=== PATIENT | male | born 1965 | race Two or more races ===

== ENCOUNTER 2024-11-03 09:13 | Inpatient (IN) | payer MEDICARE, MEDICAID, SELFPAY ==
[2024-11-03] VITALS (10 sets, daily range): BP systolic 109–163; BP diastolic 65–91; PULSE 101–114; RESP 13–88; TEMP 36.8–37.3; O2SAT 89–99; BMI 28.8
--- NOTE | 2024-11-03 09:25 | EKG_ITS ---
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
--- NOTE | 2024-11-03 09:25 | XR_ITS ---
Examination: PA lateral chest 2 views Technique: Upright PA lateral chest 2 views Exam date and time: September 05, 2024 0932 hrs. Comparison November 08, 2023 Indications: Shortness of breath chest pain today Findings: Mild CHF Moderate enlargement cardiac contour Prominent vascular congestion with early septal edema Right internal jugular dialysis catheter satisfactory position Small bilateral pleural effusions Impression: Mild CHF
--- NOTE | 2024-11-03 09:25 | PD.EDRME ---
Rapid Medical Screening Exam RME Arrival date/time: 11/03/24 09:13 59-year-old male with hypertension, ESRD presents to the emergency department with complaints of chest pain Chief Complaint: Chest Pain Vital signs: Vital Signs Temperature 98.9 F 11/03/24 09:19 Pulse Rate 114 H 11/03/24 09:19 Respiratory Rate 19 11/03/24 09:19 Blood Pressure 109/65 11/03/24 09:19 Pulse Oximetry (%) 99 11/03/24 09:19 Oxygen Delivery Method Room Air 11/03/24 09:19
[2024-11-03 10:26] LABS: Basophils # (Auto) 0.1 Thou/mm3 (0.0-0.2); Basophils % (Auto) 0 % (0-2.5); Eosinophils # (Auto) 0.3 Thou/mm3 (0.0-0.5); Eosinophils % (Auto) 2 % (0-10); Hematocrit 25.2 % (41.0-53.0); Immature Granulocytes % (Auto) 1 % (0-0); Immature Granulocytes Auto 0.22 Thou/mm3 (0.00-0.00); Lymphocytes # (Auto) 1.2 Thou/mm3 (1.0-4.8); Lymphocytes % (Auto) 6 % (10-50); Mean Corpuscular Volume 90 fL (80-100); Monocytes # (Auto) 1.3 Thou/mm3 (0.0-0.8); Monocytes % (Auto) 6 % (0-12); Neutrophils # (Auto) 17.3 Thou/mm3 (1.8-7.7); Neutrophils % (Auto) 85 % (37-80); Nucleated Red Blood Cell % 0 /100 WBC (0); Platelet Count 513 Thou/mm3 (140-440); RDW Standard Deviation 48.8 fL (35.1-43.9); Red Blood Count 2.79 Miln/mm3 (4.50-5.90); White Blood Count 20.4 Thou/mm3 (3.8-10.6)
[2024-11-03 10:31] LABS: Hemoglobin 7.8 g/dL (13.5-16.0)
[2024-11-03 10:43] LABS: B-Type Natriuretic Peptide 674 pg/mL (0-100)
[2024-11-03 10:44] LABS: Alanine Aminotransferase 21 U/L (10-49); Albumin, Serum 4.1 gm/dL (3.5-5.0); Alkaline Phosphatase 70 U/L (46-116); Anion Gap 12 (7-16); Aspartate Amino Transferase 23 U/L (0-34); BUN/Creatinine Ratio 5 Ratio (12-20); Bilirubin,Total 0.5 mg/dL (0.3-1.2); Blood Urea Nitrogen 38 mg/dL (9-23); Calcium 8.5 mg/dL (8.3-10.6); Calcium (Corrected) 8.5 mg/dL (8.5-10.1); Carbon Dioxide 24.8 mMol/L (20.0-31.0); Chloride 97 mMol/L (98-107); Creatinine (Component) 7.9 mg/dL (0.6-1.3); Estimated Creatinine Clearance 9.2 mL/min (>60); Globulin 4.3 gm/dL (2.3-3.5); Glucose 215 mg/dL (74-106); Osmolality,Calculated 283 (275-295); Potassium 4.6 mMol/L (3.4-5.1); Sodium 134 mMol/L (136-145); Total Protein 8.4 gm/dL (5.7-8.2); eGFR 7 See Note
[2024-11-03 10:46] LABS: Troponin I 0.563 ng/mL (0.0-0.045)
--- NOTE | 2024-11-03 14:02 | XR_ITS ---
Examination: CT chest, without intravenous contrast. Sagittal and coronal 2-D reconstructions. Exam date and time: November 03, 2024 1420 hrs. Indications: Chest pain coughing today CTDI:vol (mGy) 15.8 DLP: (mGycm) 478 Technique: Multiple 3.0 mm axial sections of the chest to been obtained. Bone and lung density settings are obtained. Sagittal and coronal 2-D reconstructions have been obtained. Low dose protocols were performed. One or more of the following dose reduction techniques were used; automated exposure control, adjustment of the mA and/or KV according to patient size, use of iterative reconstruction technique. Findings: Mild to moderate enlargement cardiac contour Prominent pericardial effusion measuring up to 27 mm Heavy coronary artery calcification Prominent vascular congestion Small left pleural effusion Atelectasis at the left lung base Pneumonia left lung base Fatty infiltration throughout the liver Impression: Mild to moderate enlargement cardiac contour. Prominent pericardial effusion measuring up to 27 mm Mild heart failure. Significant pneumonia left base. Small left pleural effusion
--- NOTE | 2024-11-03 14:05 | PD.EDADULT ---
ED General RME/HPI General Chief complaint: Chest Pain Stated complaint: PAIN UNDER L) NIPPLE STARTED LAST NIGHT Time Seen by Provider: 11/03/24 13:54 Arrival date/time: 11/03/24 09:13 CC: Cough chest pain, site-specific, HPI ongoing since last night. Patient is a dialysis patient Monday and Fridays last dialyzed Monday last Monday, Dr. Hannah is his director of community center. Patient is awake alert oriented when initially assessed he was 93% on 4 L nasal cannula does not wear oxygen at home. Currently the chest pain is site-specific to the left anterior chest midclavicular line not reproducible with palpation but increases with deep inhalation or cough. RME / HPI RME / HPI narrative: 11/03/24 09:13 59-year-old male with hypertension, ESRD presents to the emergency department with complaints of chest pain Related Data Home Medications ?Medication ?Instructions ?Recorded ?Confirmed atorvastatin 10 mg tablet (Lipitor) 10 mg PO QDAY 08/06/18 12/23/22 amlodipine 10 mg tablet 10 mg PO QDAY 12/23/22 12/23/22 clonidine HCl 0.3 mg tablet 0.3 mg TID 12/23/22 12/23/22 Previous Rx's ?Medication ?Instructions ?Recorded calcium acetate(phosphat bind) 667 1,334 mg (2 x 667 mg) PO TIDWM #90 12/27/22 mg capsule caps hydralazine 50 mg tablet 50 mg PO TID #90 tabs 12/27/22 ferrous sulfate 325 mg (65 mg 325 mg PO .every 72 hours #20 tabs 12/29/22 iron) tablet,delayed release Allergies Allergy/AdvReac Type Severity Reaction Status Date / Time No Known Allergies Allergy Verified 11/03/24 09:17 Review of Systems Review of Systems Narrative Review of Systems: GEN: No fever, no chills, no weight loss EYES: No discharge, no visual changes, no pain HEENT: No ear pain, no congestion, no sore throat PULM: No shortness of breath, no cough, no congestion CV: + chest pain, no dyspnea on exertion, no palpitations GI: No nausea, no vomiting, no diarrhea, no pain, no constipation : No frequency, no urgency, no dysuria MUSC/SKEL: No joint pain, no back pain SKIN: No rash PSYCH: No hallucinations, no depression HEME/LYMPH: No easy bleeding or bruising tendencies NEURO: No weakness, no headache Past Medical History Past Medical History NEUROLOGIC: Negative Neurological Disorders or Seizures CARDIAC: Positive Cardiac Disorders, Hypercholesterolemia, Congestive Heart Failure and Hypertension; Negative Cardiac Arrhythmia, Atrial Fibrillation or Edema RESPIRATORY: Negative Chronic Obstructive Pulmonary Disease (COPD), Asthma, Bronchitis or Sleep Apnea GASTROINTESTINAL: Negative Gastrointestinal Disorders GENITOURINARY: Positive Genitourinary Disorders; Negative Renal Disease, Inguinal Hernia or Dialysis MUSCULOSKELETAL: Negative Musculoskeletal Disorders ENDOCRINE: Positive Endocrine Disorders and Diabetes Mellitus Type 2; Negative Diabetes Mellitus Type 1 HEMATOLOGIC: Negative Blood Disorders, Anemia or Sickle Cell Disease OTHER HISTORY: Negative Autoimmune Disease, Falls, Blood Transfusions, Blood Transfusion Reaction, Anesthesia Reactions, MRSA or Cancer Family History FAMILY HISTORY: Positive Family Cancer; Negative Family Cardiac Disorders Surgical History SURGICAL: Negative Pacemaker or Vasectomy Social History SMOKING STATUS: Never smoker ED Exam Narrative Physical exam: [General: Appears not in any acute distress Head normocephalic HEENT: Eyes: Pupils are PERRLA EOMs are intact. All other subsystems of HEENT are within acceptable limits Neck is supple nontender Chest equal chest rise nontender to palpation right anterior dialysis catheter clean dry and intact with a fresh dressing no surrounding erythema or edema. Respiratory: Clear to auscultation no wheezes crackles or rubs CV: Rate rhythm is regular no murmurs rubs or clicks Abdomen is soft nontender no masses positive bowel sounds all 4 quadrants Back: No CVA tenderness no spinous process tenderness from cervical spine thoracic and lumbar spine Skin: Intact no petechiae rash induration ulceration or crepitus Extremities: Moving all extremity against resistance cap refill less than 2 seconds neurosensory intact Neuro: Awake alert oriented x3 Glascow coma 15 no focal deficits] Course Quality Measures none Orders Category Date Time Status EKG (ED ONLY) *Do not use* NOW Care 11/03/24 09:[address] chest wo con Stat Exams 11/03/24 14:02 Completed EKG (ED Only) Stat Exams 11/03/24 09:25 Draft XR chest 2V Stat Exams 11/03/24 09:25 Completed BNP [B-Type Natriuretic Peptide] Stat Lab 11/03/24 09:54 Completed CBC Stat Lab 11/03/24 09:54 Completed Comprehensive Metabolic Panel Stat Lab 11/03/24 09:54 Completed Troponin I Stat Lab 11/03/24 09:54 Completed cefTRIAXone/D5w 1gm IV premix [Rocephin/D5w 1gm IV Med 11/03/24 14:02 Discontinued premix] 1 gm in 50 ml IV X1 Vital Signs Vital signs: Vital Signs Temperature 98.9 F 11/03/24 09:19 Pulse Rate 114 H 11/03/24 09:19 Respiratory Rate 19 11/03/24 09:19 Blood Pressure 109/65 11/03/24 09:19 Pulse Oximetry (%) 99 11/03/24 09:19 Oxygen Delivery Method Room Air 11/03/24 09:19 Discharge Plan Plan Patient Disposition: Other Care w/in Hosp ([facility]) Patient condition on transfer: Stable Prescriptions/Referrals Prescriptions/Med Rec: No Action atorvastatin [Lipitor] 10 mg Tablet 10 mg PO QDAY amlodipine 10 mg tablet 10 mg PO QDAY clonidine HCl 0.3 mg tablet 0.3 mg TID Patient Comments: TAKE ONE TABLET BY MOUTH THREE TIMES DAILY calcium acetate(phosphat bind) 667 mg Capsule 1,334 mg PO TIDWM Qty: 90 0RF hydralazine 50 mg tablet 50 mg PO TID Qty: 90 0RF ferrous sulfate 325 mg (65 mg iron) tablet,delayed release (DR/EC) 325 mg PO .every 72 hours Qty: 20 0RF Referrals: Brittani Goel PA-C [Primary Care Provider] - In 1 week Problem List Clinical Impression: Pneumonia, Shortness of breath, Chest pain, Hypoxemia Patient/Caregiver Discharge Instructions Print Language: Martiniquais Stand Alone Forms: Cherelle Award Info., Patient Portal Info Letter PA/MUKESH Supervising Physician PA/BUNCHER OPERATOR Supervising Physician: Breezy Lopez ENP MDM Patient Acuity High Acuity (complete MDM) Narrative: Patient on dialysis Monday and Monday. Clinical Information Provided by: patient Medical Records reviewed [facility] Chronic Illness/Social Conditions which may negatively complicate care or outcome(s)-explain: other (ESRD dialysis) EKG EKG Interpretation(s): EKG performed at 0 929 shows a ventricular rate of 113 DE interval 193 QRS of 95 QTc of 354 this is sinus tachycardia nonspecific ST segment changes. Labs Lab(s) Interpretation(s): CBC shows a white count of 20,400 H&H of 7.8 and 25.2 platelet count 518. CMP shows a sodium 134 chloride of 97 BUN of 38 creatinine of 7.9 glucose of 215. No transaminitis or T. bili elevation Troponin at 0.563 note: All prior troponins have been at this level BNP at 674. EKG as interpreted by the radiologist shows vascular congestion. Imaging Imaging Interpretation(s): I am concerned the patient has pneumonia with a 20,000 white count no fever persistent cough and site-specific chest pain that increases with cough or deep inhalation. Will CT the chest to determine. The meantime the patient will be given a gram of Rocephin. CT of the chest confirms the patient has a significant left base pneumonia. Medication Administration(s) Medication Administration History Discontinued Medications Ceftriaxone Sodium/Dextrose (Rocephin/D5w 1gm Iv Premix) 1 gm in 50 mls @ 100 mls/hr IV X1 ONE Stop: 11/03/24 14:31 Last Infusion: 11/03/24 15:33 Dose: Infused Documented By: Admin: 11/03/24 14:54 Dose: 100 mls/hr Documented By: SHAUNA Patient's case discussed with the resident for Dr. Johansen who agrees accept the patient for admission. Diagnosis Differential Diagnosis ED Complaint MDM: Shortness of breath hypoxemia pneumonia ESRD
[2024-11-03] MEDS: cefTRIAXone/D5w 1gm IV premix 1 GM/50 ML BAG IV (14:54)
--- NOTE | 2024-11-03 16:27 | ESHP_ITS ---
<Statement entered by Jareth Burns MD - 11/04/24 14:29> Patient coming in to ED with complaints of shortness of breath and chest pain. Patient found to have pericardial fluid on CT imaging. Will admit patient for cardiac echo and cardiology consults. Patient also noted to have pneumonia we will start patient on IV antibiotics and await cultures. Patient is dialysis patient, will consult nephrology for continued dialysis. Case discussed with team. Jareth Burns MD PGY3 Documentation for date of: 11/03/24 HPI History of Present Illness History of present illness: Mr. Springer is a 59-year-old male with past medical history significant for hypertension, hyperlipidemia, type 2 diabetes and end-stage renal disease on hemodialysis Monday with Dr. Garcia as his primary thread dresser presented to the ED after experiencing cough for 2 days causing left-sided chest pain below the nipple. Patient states the pain is nonradiating and nonreproducible it has been constant 7/10 pain. Patient states he does have shortness of breath but that is not new as he is ESRD patient and often gets shortness of breath and feels like he should be on home oxygen. Patient said the pain is only worse when he is laying on his left side but other than that nothing makes the pain better or worse. Patient states he has noticed he has been experiencing orthopnea and occasional PND. Pt denies any previous cardiac history and does not see a head piece assembler. Patient denies any flulike symptoms or sick contacts he states that he does have a mild cough but denies any fevers or chills. Patient also denies any abdominal pain, nausea, vomiting, diarrhea or constipation. Patient denies any episodes of melena or hematochezia and denies hematemesis. Patient states he regularly goes to his dialysis sessions and occasionally if he is busy on his scheduled dialysis day he makes it up the next day but never misses multiple sessions in a row. Pt denies any diziness or syncopal episodes. Pt lives alone and takes care of himself. ED Course: In the ED initial vitals are blood pressure 109/65, pulse 114 Labs were significant for WBC 20.4, hemoglobin 7.8, hematocrit 25.2, platelet 513, sodium 134, chloride 97, BUN 38, creatinine 7.9, GFR 7, glucose 215, troponin 0.563, BNP 674 Chest XR: Mild CHF, Moderate enlargement cardiac contour, Prominent vascular congestion with early septal edema, Right internal jugular dialysis catheter satisfactory position, Small bilateral pleural effusions CT Chest: Mild to moderate enlargement cardiac contour, Prominent pericardial effusion measuring up to 27 mm, Mild heart failure, Significant pneumonia left base, Small left pleural effusion PMH: Hypertension, hyperlipidemia, type 2 diabetes, ESRD PSH: No history of surgeries SH: Patient denies smoking tobacco, denies illicit drug use and denies alcohol Home Meds: Patient is unable to recall his home meds, pending med rec Review of Systems Review of Systems Systems Reviewed: All systems reviewed, normal except as documented Exam Vital Signs Temp Pulse Resp BP Pulse Ox O2 Del Method O2 Flow Rate 98.2 F 113 H 13 158/91 H 97 Nasal Cannula 3 11/03/24 13:49 11/03/24 15:48 11/03/24 15:48 11/03/24 15:48 11/03/24 15:48 11/03/24 15:48 11/03/24 15:48 Narrative Exam GENERAL: A&Ox3 . pleasant, cooperative middle aged man, although Pt is short of breath is not in acute distress NEURO: no focal neurological deficits noted HEENT: Atraumatic, Normocephalic. mucous membranes moist. Eyes open, symmetrical, & clear HEART: Normal Heart Sounds LUNGS: diminished breath sounds on left and faint breath sounds on right ABDOMEN: soft, non-distended, non-tender, bowel sounds heard, no guarding or rebound tenderness SKIN: No Rash or ecchymoses EXTREMITIES: Trace pitting edema bilaterally in LE, tenderness, able to move all 4 extremities, pedal pulses palpated Results: Labs 11/04/24 04:52 11/04/24 04:52 Labs: Short CBC 11/03/24 Range/Units 09:54 WBC 20.4 H (3.8-10.6) Thou/mm3 Hgb 7.8 L (13.5-16.0) g/dL Hct 25.2 L (41.0-53.0) % Plt Count 513 H (140-440) Thou/mm3 BMP 11/03/24 09:54 Sodium 134 L Potassium 4.6 Chloride 97 L Carbon Dioxide 24.8 BUN 38 H Creatinine 7.9 H* Glucose 215 H Calcium 8.5 Cardiac Enzymes 11/03/24 Range/Units 09:54 Troponin I 0.563 H* (0.0-0.045) ng/mL Liver Function 11/03/24 Range/Units 09:54 Total Bilirubin 0.5 (0.3-1.2) mg/dL AST 23 (0-34) U/L ALT 21 (10-49) U/L Alkaline Phosphatase 70 (46-116) U/L Albumin 4.1 (3.5-5.0) gm/dL Quality Measures Quality Measures none Medications Home Medications and Allergies Home Medications ?Medication ?Instructions ?Recorded ?Confirmed ?Type metoprolol tartrate 25 mg tablet 25 mg PO Q12H 5 11/03/24 History sucroferric oxyhydroxide 500 mg 500 mg PO TID 11/03/24 11/03/24 History chewable tablet (Velphoro) vitamin B comp no.3-folic acid 1 1 tab PO .QD 11/03/24 11/03/24 History mg-vit C 60 mg-biotin 300 mcg tablet (Ileana-Koko Rx) Allergies Allergy/AdvReac Type Severity Reaction Status Date / Time No Known Allergies Allergy Verified 11/03/24 09:17 Visit Medications Acetaminophen (Acetaminophen 325 Mg Tablet) 650 mg PO Q6H PRN PRN Reason: Fever >101.5 Stop: 12/03/24 16:09 Dextrose (Dextrose 50%-Water Inj 50 Ml Syringe) 25 ml IV Q15MIN PRN PRN Reason: BG 50-70 responsive npo pt Stop: 12/03/24 16:23 Dextrose (Dextrose 50%-Water Inj 50 Ml Syringe) 50 ml IV Q15MIN PRN PRN Reason: BG <50 OR BG <70 & pt unresponsive Stop: 12/03/24 16:23 Glucagon (Glucagon Inj 1 Mg Vial) 1 mg IM Q15MIN PRN PRN Reason: BG <70, and no IV access Heparin Sodium (Porcine) (Heparin Sod Inj 5000 Unit/Ml Vial) 5,000 unit SC Q8HR ADRIANA Stop: 11/17/24 21:59 Ceftriaxone Sodium/Dextrose (Rocephin/D5w 1gm Iv Premix) 50 mls @ 100 mls/hr IV QDAY ADRIANA Stop: 11/11/24 16:18 Azithromycin 500 mg/ Sodium (Chloride) 250 mls @ 250 mls/hr IV QDAY ADRIANA Stop: 11/10/24 16:29 Insulin Human Lispro (Insulin Lispro (Admelog) 1 Unit/0.01 Ml Unit) 0 unit SC AC ADRIANA; Protocol Stop: 12/03/24 16:59 Ondansetron HCl (Ondansetron Inj 2 Mg/Ml Inj 2 Ml) 4 mg IV Q6H PRN; Protocol PRN Reason: NAUSEA OR VOMITING Stop: 12/03/24 16:09 Sennosides (Senna Tablet) 1 tab PO BID PRN; Protocol PRN Reason: CONSTIPATION Stop: 12/03/24 16:09 Discontinued Medications Ceftriaxone Sodium/Dextrose (Rocephin/D5w 1gm Iv Premix) 1 gm in 50 mls @ 100 mls/hr IV X1 ONE Stop: 11/03/24 14:31 Last Infusion: 11/03/24 15:33 Dose: Infused Assessment & Plan Plan Mr. Springer is a 59-year-old male with past medical history significant for hypertension, hyperlipidemia, type 2 diabetes and end-stage renal disease on hemodialysis Monday with Dr. Newton as his primary thread dresser presented to the ED after experiencing cough for 2 days causing left-sided chest pain below nipple. Pt is admitted for further management of #Chest pain #Pericardial effusions #Elevated BNP #Elevated Troponins -Pt complains of left sided chest pain that is worse when laying on left side. The pain does not radiate and does not reproduce. -BNP is 674 and troponin 0.346 -> 0.563 -Pt does not appear to have cardiac temponade, as BP is 163/91 and HR 110 -EKG is evident of sinus tachycardia with accational PCVc and non specific ST & T wave abnormallity -CXR and CT- Prominent pericardial effusion measuring up to 27 mm, Small left pleural effusion, Mild to moderate enlargement cardiac contour. Plan: -Trend troponins -Echo ordered -Consulted Wire Temperer Dr. Bojorquez, appreciate recommendations #Acute Hypoxic Respiratory Failure 2/2 #Community aquired pneumonia #Pleural effusions, left #Leukocytosis -Although patient did not complain of any flulike symptoms patient has had a cough for couple days and shortness of breath -Chest x-ray and CT is evident of Significant pneumonia left base., Small left pleural effusion -On admission patient is saturating 94% on 4 L of oxygen WBC 20.4 Plan: - Supplemental oxygen as needed ordered - Blood cultures ordered - Ceftriaxone and azithromycin started 11/03- #ESRD on HD MWF -Pt is started of HD in 12/2022 -On admission Cr 7.9, GFR 7 -Follows Dr. Garcia outpatient, however he is on vacation right now therefore will consult covering thread dresser Dr. Chávez to resume dialysis as per Pt's schedule #Normocytic anemia #Anemia of chronic disease -Hemoglobin is 7.8, hematocrit 25.2, MCV 90 -No signs of active bleeding, patient denies any episodes of hematemesis, hematochezia or melena -This anemia is likely in the setting of longstanding CKD leading to ESRD -Ordered iron panel and ferritin for a.m. labs -Will consider transfusion if hemoglobin drops below 7 #Non-insulin dependent Type 2 diabetes -A1c 5.5 on 12/23/22 -ACHS ordered -Insulin sliding scale ordered -hypoglycemia protocol in place -A1c ordered for am labs #Primary hypertension -Pt's home amlodipine 10mg daily is resumed #Hyperlipidemia -Pending med rec -Lipid panel ordered for am labs Health Maintenance Disposition: Telemetry DVT Prophylaxis: Heparin 5000 units SC Q8 hrs GI Prophylaxis: not indicated as pt is ESRD Diet: Renal Diet Lines: Peripheral lines Code status: DNR/DNI Assessment and plan discussed with my senior resident Dr. Burns & attending physician Dr. Haily Mcfadden (PGY-1)- Internal medicine resident Attending Provider Attestation/Addendum I, Madeleine Johansen DO, attest that I was physically present for the raphael portions of the service and evaluated the patient with the resident and I reviewed and discussed the case with the resident and agree with the resident's findings and plans of care as documented above Patient is a 59-year-old male with past medical history of hypertension, hyperlipidemia, type 2 diabetes and end-stage renal disease on HD on Monday. Patient follows with Dr. Hannah outpatient. He reported pain in his left chest that began in the past few days. He states the pain is worse when he lays on his left side. He also endorses worsening pain on deep inspiration. Patient lives alone and denies any recent sick contacts. Patient does not leave the house very often, except for dialysis. Patient denies missing any dialysis sessions. He also denies fevers or chills. He does endorse worsening dyspnea on exertion limiting his daily activities and orthopnea. He reports having a dry cough that has been worsening for the past few days, but claims that he often has cough following his dialysis sessions. Patient denies any hemoptysis. He also denies any productive sputum. Patient found to have a leukocytosis of 20.4 on presentation no electrolyte abnormalities. He has a mild troponin elevation of 0. 563, which may be secondary to his renal dysfunction. BNP is also 674. Will continue to trend troponins. CT chest was done in the ED showing a prominent pericardial effusion of 27 mm, mild heart failure, significant pneumonia left base and small left pleural effusion. Will admit patient to telemetry for further workup medical management of acute hypoxic respiratory failure. Patient currently requiring 4 L nasal cannula. He is notably tachycardic. Patient has never seen a head piece assembler in the past. He states that he was recommended by his dialysis nurse on Monday to follow-up with cardiology since he was found to have a heart rate of 120s. He denies any chest pain otherwise. He also denies any syncope or lightheadedness. Will obtain echocardiogram to further assess pericardial effusion. Cardiology consulted and will follow with recommendations. Will start IV antibiotics for coverage of community-acquired pneumonia.
[2024-11-03] MEDS: amLODIPine BESYLATE 5 MG TABLET 10 MG PO (16:51)
[2024-11-03] MEDS: AZITHROMYCIN INJ 500 MG in SODIUM CHLORIDE 0.9% 250 ML 250 ML 250 MG IV (16:54)
--- NOTE | 2024-11-03 17:20 | PC.NURSE ---
REPORT GIVEN TO GEOVANNA PUGA
[2024-11-03] MEDS: hydrALAZINE HCL 10 MG TABLET PO (21:58)
[2024-11-03] MEDS: HEPARIN SOD INJ 5000 UNIT/ML VIAL SC (21:58)
[2024-11-03] MEDS: LEVALBUTEROL RT 1.25 MG/0.5 ML NEBU INH (22:43)
[2024-11-04] VITALS (80 sets, daily range): BP systolic 71–150; BP diastolic 46–87; PULSE 59–143; RESP 1–51; TEMP 36.3–37.1; O2SAT 91–100; BMI 28.8
[2024-11-04 00:41] LABS: Collection Type, Urine Clean Catch
[2024-11-04 00:46] LABS: Bilirubin,Urine Negative (Negative); Blood,Urine Trace (Negative); Clarity,Urine Turbid (Clear/Hazy); Color,Urine Yellow (Lt Yel-Yel); Glucose, Urine 1+ (Negative); Ketones,Urine Negative (Negative); Leukocyte Esterase,Urine Positive (Negative); Nitrite,Urine Negative (Negative); Protein,Urine 2+ (Neg - Trace); RBC,Urine 1 /hpf (0-3); Specific Gravity,Urine 1.015 (1.001-1.035); Squamous Epithelial Cell,Urine 1 /hpf (0-5); Urobilinogen,Urine Negative mg/dL (0.0-1.0); WBC,Urine 32 /hpf (0-5)
[2024-11-04] MEDS: hydrALAZINE HCL 10 MG TABLET PO (05:38)
[2024-11-04] MEDS: HEPARIN SOD INJ 5000 UNIT/ML VIAL SC ×3 (05:39→21:31)
[2024-11-04 06:08] LABS: Basophils # (Auto) 0.1 Thou/mm3 (0.0-0.2); Basophils % (Auto) 0 % (0-2.5); Eosinophils # (Auto) 0.1 Thou/mm3 (0.0-0.5); Eosinophils % (Auto) 0 % (0-10); Hematocrit 22.7 % (41.0-53.0); Immature Granulocytes % (Auto) 1 % (0-0); Immature Granulocytes Auto 0.21 Thou/mm3 (0.00-0.00); Lymphocytes # (Auto) 1.2 Thou/mm3 (1.0-4.8); Lymphocytes % (Auto) 5 % (10-50); Mean Corpuscular HGB Conc 30.8 g/dl (31.0-37.0); Mean Corpuscular Hemoglobin 27.3 pg (25.0-35.0); Mean Corpuscular Volume 89 fL (80-100); Monocytes % (Auto) 8 % (0-12); Neutrophils # (Auto) 20.2 Thou/mm3 (1.8-7.7); Neutrophils % (Auto) 85 % (37-80); Nucleated Red Blood Cell % 0 /100 WBC (0); Platelet Count 481 Thou/mm3 (140-440); RDW Standard Deviation 48.9 fL (35.1-43.9); Red Blood Count 2.56 Miln/mm3 (4.50-5.90); White Blood Count 23.7 Thou/mm3 (3.8-10.6)
[2024-11-04 06:38] LABS: Ferritin 1217 ng/mL (10.5-307.3); Iron 12 mcg/dL (65-175); Percent Iron Saturation 8 % (20-55); Total Iron Binding Capacity 146 mcg/dL (250-425); Unsaturated Iron Binding 134 (225-295)
[2024-11-04 06:41] LABS: Alanine Aminotransferase 12 U/L (10-49); Albumin, Serum 3.8 gm/dL (3.5-5.0); Alkaline Phosphatase 64 U/L (46-116); Anion Gap 12 (7-16); Aspartate Amino Transferase < 10 U/L (0-34); BUN/Creatinine Ratio 5 Ratio (12-20); Bilirubin,Total 0.6 mg/dL (0.3-1.2); Blood Urea Nitrogen 49 mg/dL (9-23); Calcium 8.8 mg/dL (8.3-10.6); Carbon Dioxide 27.7 mMol/L (20.0-31.0); Cardiac Risk Estimate 3.5 RATIO (4.0-6.7); Chloride 100 mMol/L (98-107); Cholesterol 94 mg/dL (132-200); Creatinine (Component) 9.2 mg/dL (0.6-1.3); Estimated Creatinine Clearance 7.9 mL/min (>60); Globulin 3.9 gm/dL (2.3-3.5); Glucose 143 mg/dL (74-106); HDL Cholesterol 27 mg/dL (40-60); LDL Cholesterol,Calculated 47 mg/dL (0-130); Osmolality,Calculated 294 (275-295); Phosphorous 7.8 mg/dL (2.4-5.1); Potassium 4.8 mMol/L (3.4-5.1); Sodium 140 mMol/L (136-145); Total Protein 7.7 gm/dL (5.7-8.2); Triglycerides 102 mg/dL (30-150); eGFR 6 See Note
[2024-11-04 07:13] LABS: Glucose Estimated Average 151 mg/dL (80-131); Hemoglobin A1C 6.9 % Hgb (4.8-6.0)
[2024-11-04] MEDS: LEVALBUTEROL RT 1.25 MG/0.5 ML NEBU INH ×3 (07:55→23:22)
--- NOTE | 2024-11-04 08:31 | PC.NURSE ---
High arterial pressure, lines reversed.
--- NOTE | 2024-11-04 09:10 | PD.IMCONS ---
HPI Data of Consult Requesting Physician: Ramy Dover DO Primary Care Provider: Brittani Goel PA-C Consult Narrative History of present illness: This is a 59-year-old male with past medical history significant for hypertension, hyperlipidemia, type 2 diabetes and end-stage renal disease on hemodialysis pt seen in the ER with cough and atypical chest pain CT showed pericardial effusion cardiology consulted EKG unremarkable echo in 2022 - no pericardial effusion noted cc:: cc: Ramy Dover DO Meds Home Medications and Allergies Home Medications ?Medication ?Instructions ?Recorded ?Confirmed ?Type metoprolol tartrate 25 mg tablet 25 mg PO Q12H 11/03/24 11/03/24 History sucroferric oxyhydroxide 500 mg 500 mg PO TID 11/03/24 11/03/24 History chewable tablet (Velphoro) vitamin B comp no.3-folic acid 1 1 tab PO .QD 11/03/24 11/03/24 History mg-vit C 60 mg-biotin 300 mcg tablet ([facility]) Allergies Allergy/AdvReac Type Severity Reaction Status Date / Time No Known Allergies Allergy Verified 11/03/24 09:17 Exam Vital Signs Temp Pulse Resp BP Pulse Ox O2 Del Method O2 Flow Rate 97.5 F 96 18 106/57 L 94 L Room Air 4 11/04/24 08:24 11/04/24 09:00 11/04/24 08:24 11/04/24 09:00 11/04/24 08:24 11/04/24 07:53 11/04/24 08:24 Routine HEENT Exam Head: Present normocephalic and atraumatic Eye: Present EOMI and PERRL ENT: Present mucous membranes moist Routine Neck Exam Neck: Present supple and trachea midline Routine Respiratory Exam Respiratory: Present chest non-tender, lungs clear, normal breath sounds and no resp distress Routine Cardiovascular Exam Cardiovascular: Present RRR Routine Abdominal Exam Abdominal: Present soft and normoactive bowel sounds Routine Extremities Exam Extremities: Present full ROM Routine Skin Exam Skin: Present intact, dry and warm Routine Neurological Exam Neurological: Present alert, oriented X3 and CN II-XII intact Routine Psychiatric Exam Psychiatric: Present normal affect and normal thought process Results Labs 11/04/24 04:52 11/04/24 04:52 Labs: Short CBC 11/03/24 11/04/24 Range/Units 09:54 04:52 WBC 20.4 H 23.7 H (3.8-10.6) Thou/mm3 Hgb 7.8 L 7.0 L (13.5-16.0) g/dL Hct 25.2 L 22.7 L (41.0-53.0) % Plt Count 513 H 481 H D (140-440) Thou/mm3 BMP 11/03/24 11/04/24 09:54 04:52 Sodium 134 L 140 Potassium 4.6 4.8 Chloride 97 L 100 Carbon Dioxide 24.8 27.7 BUN 38 H 49 H Creatinine 7.9 H* 9.2 H* D Glucose 215 H 143 H D Calcium 8.5 8.8 Cardiac Enzymes 11/03/24 Range/Units 09:54 Troponin I 0.563 H* (0.0-0.045) ng/mL Liver Function 11/03/24 11/04/24 Range/Units 09:54 04:52 Total Bilirubin 0.5 0.6 (0.3-1.2) mg/dL AST 23 < 10 (0-34) U/L ALT 21 12 (10-49) U/L Alkaline Phosphatase 70 64 (46-116) U/L Albumin 4.1 3.8 (3.5-5.0) gm/dL Urine 11/04/24 Range/Units 00:10 Urine Color Yellow (Lt Yel-Yel) Urine Clarity Turbid A (Clear/Hazy) Urine pH 7.0 (5.0-7.0) Ur Specific [place] 1.015 (1.001-1.035) Urine Protein 2+ A (Neg - Trace) Urine Glucose (UA) 1+ A (Negative) Assessment and Plan Assessment and plan (1) Chest pain: Status: Acute (2) Shortness of breath: Status: Acute (3) Pneumonia: Status: Acute (4) End-stage renal disease (ESRD): Status: Acute (5) Pericardial effusion: Status: Acute Additional Assessment & Plan Additional Plan: pt clinically not in tamponade echo pending
[2024-11-04 09:58] LABS: Troponin I 0.457 ng/mL (0.0-0.045)
--- NOTE | 2024-11-04 10:06 | PC.SS ---
SS follow up note: Patient is currently getting treated with IV ABX. Patient will return home when medically cleared.
--- NOTE | 2024-11-04 10:40 | PC.SS ---
Patient George Springer is a 59 Year old male admitted for CAP. SS met with patient at bedside during Dialysis. Patient reports he lives at home alone. Patient's surrogate decision makers are his sons, Ric Springer [phone] and Son, Fabiano Springer [phone]. Patient reports he is able to complete all ADL's independently and does not utilize any source of DME to assist with ambulation. Patient's [employer]ary Soil Stabilizer is Dr. Alfredo and gets Dialysis at [facility] on Mon, Mon, Fridays at 10:30 AM. Patient's PCP is Brittani Tipton. At time of discharge patient will return home. Son's will provide transportation. Next of kin: Son's, Ric and Fabiano Springer Discharge Plan: Home
--- NOTE | 2024-11-04 11:10 | PC.NURSE ---
BP dropped decreased goal to 2.5 L
[2024-11-04] MEDS: SODIUM CHLORIDE 0.9% 500 ML 500 ML 999 ML IV (14:33)
--- NOTE | 2024-11-04 15:00 | PD.RESPRO ---
Documentation for date of: 11/04/24 Subjective Subjective Interval history: Patient was seen and examined at bedside. No acute overnight events. Patient underwent hemodialysis today, followed by Dr. Garcia. Echo pending to assess pericardial effusion. Blood pressure was on the lower side and home blood pressure medications were held. Repeat EKG showed A-fib with RVR at rate 130s, amiodarone drip was ordered. Patient is awaiting for transfer to telemetry to start drip. Repeat troponin was downtrending at 0.457. Exam Vital Signs Temp Pulse Resp BP Pulse Ox O2 Del Method O2 Flow Rate 97.9 F 126 H 16 110/58 L 99 Room Air 4 11/04/24 12:00 11/04/24 13:31 11/04/24 12:00 11/04/24 13:31 11/04/24 12:00 11/04/24 12:00 11/04/24 11:32 Narrative Exam Gen: Well-developed and well-nourished male. HEENT: NCAT, PERRLA, EOMI, MMM, anicteric conjunctivae. CVS: normal S1 and S2. RRR. No M/R/G. Resp: Decreased breath sounds B/L bases. No rhonchi, rales, crackles or wheezing. Abd: soft, non-tender, non-distended. BS+ in all 4 quadrants. MSK: Good ROM in BUE & BLE. No edema or rash. Dialysis catheter in place and appears clean. Neuro: CN II-XII grossly intact. Strength 5/5 in BUE & BLE. Alert and oriented x3. Objective Labs 11/05/24 05:16 11/05/24 05:16 Labs: Laboratory Results - last 24 hr 11/04/24 11/04/24 00:10 04:52 WBC 23.7 H RBC 2.56 L Hgb 7.0 L Hct 22.7 L MCV 89 MCH 27.3 MCHC 30.8 L RDW Std Deviation 48.9 H Plt Count 481 H D Neut % (Auto) 85 H Lymph % (Auto) 5 L [place] % (Auto) 8 Eos % (Auto) 0 Baso % (Auto) 0 Neut # (Auto) 20.2 H Lymph # (Auto) 1.2 [place] # (Auto) 2.0 H Eos # (Auto) 0.1 Baso # (Auto) 0.1 Immature Gran # (Auto) 0.21 H Absolute Nucleated RBC 0.00 Immature Gran % 1 H Nucleated RBC % 0 Sodium 140 Potassium 4.8 Chloride 100 Carbon Dioxide 27.7 Anion Gap 12 BUN 49 H Creatinine 9.2 H* D Estim Creat Clear Calc 7.9 L eGFR 6 L* BUN/Creatinine Ratio 5 L Glucose [address] Glu mg/dL 151 H Hemoglobin A1c 6.9 H Calculated Osmolality 294 Calcium 8.8 Corrected Calcium 9.0 Phosphorus 7.8 H Magnesium 2.0 Iron 12 L TIBC 146 L Iron Saturation 8 L Unsat Iron Binding 134 L Ferritin 1217 H Total Bilirubin 0.6 AST < 10 ALT 12 Alkaline Phosphatase 64 Troponin I 0.457 H* Total Protein 7.7 Albumin 3.8 Globulin 3.9 H Albumin/Globulin Ratio 1.0 L Triglycerides 102 Cholesterol 94 L LDL Cholesterol, Calc 47 HDL Cholesterol 27 L Cholesterol/HDL Ratio 3.5 L Ur Collection Type Clean Catch Urine Color Yellow Urine Clarity Turbid A Urine pH 7.0 Ur Specific [place] 1.015 Urine Protein 2+ A Urine Glucose (UA) 1+ A Urine Ketones Negative Urine Blood Trace Urine Nitrite Negative Urine Bilirubin Negative Urine Urobilinogen (Auto) Negative Ur Leukocyte Esterase Positive Urine RBC 1 Urine WBC 32 H Ur Squamous Epith Cells 1 Urine Bacteria None Quality Measures Quality Measures VTE prophylaxis Assessment & Plan Assessment Current Active Medications: Generic Name Dose Route Start Last Admin Trade Name Freq PRN Reason Stop Dose Admin Acetaminophen 650 mg 11/03/24 16:10 Acetaminophen 325 Mg Tablet PO 12/03/24 16:09 Q6H PRN Fever >101.5 Amlodipine Besylate 10 mg 11/03/24 16:30 11/04/24 09:48 Amlodipine Besylate 5 Mg Tablet PO 12/03/24 16:29 Not Given QDAY ADRIANA Dextrose 25 ml 11/03/24 16:24 Dextrose 50%-Water Inj 50 Ml Syringe IV 12/03/24 16:23 Q15MIN PRN BG 50-70 responsive npo pt Dextrose 50 ml 11/03/24 16:24 Dextrose 50%-Water Inj 50 Ml Syringe IV 12/03/24 16:23 Q15MIN PRN BG <50 OR BG <70 & pt unresponsive Glucagon 1 mg 11/03/24 16:24 Glucagon Inj 1 Mg Vial IM Q15MIN PRN BG <70, and no IV access Heparin Sodium (Porcine) 5,000 unit 11/03/24 22:00 11/04/24 13:03 Heparin Sod Inj 5000 Unit/Ml Vial SC 11/17/24 21:59 5,000 unit Q8HR ADRIANA Administration Heparin Sodium (Porcine) 3,300 unit 11/04/24 09:54 Heparin Sod Inj 1000 Unit/Ml Vial 10 Ml INDWELLCAT 11/18/24 09:53 X1 PRN DIALYSIS Hydralazine HCl 10 mg 11/03/24 22:00 11/04/24 13:31 Hydralazine Hcl 10 Mg Tablet PO 12/03/24 21:59 Not Given TID ADRIANA Ceftriaxone Sodium/Dextrose 1 gm in 50 mls @ 100 mls/hr 11/04/24 16:19 Rocephin/D5w 1gm Iv Premix IV 11/11/24 16:18 QDAY ADRIANA Azithromycin 500 mg/ Sodium 250 mls @ 250 mls/hr 11/04/24 21:00 Chloride IV 11/10/24 20:59 QDAY@2100 [facility] Albumin Human 25 gm in 100 mls @ 100 mls/hr 11/04/24 09:54 Albuminar-25 Ivpb IV 11/07/24 09:53 PRN PRN DIALYSIS Insulin Human Lispro 0 unit 11/03/24 17:00 11/04/24 11:52 Insulin Lispro (Admelog) 1 Unit/0.01 Ml Unit SC 12/03/24 16:59 Not Given AC ADRIANA Protocol Levalbuterol HCl 1.25 mg 11/03/24 23:00 11/04/24 14:56 Levalbuterol Rt 1.25 Mg/0.5 Ml Nebu INH 12/03/24 22:59 1.25 mg Q8HRRT ADRIANA Administration Ondansetron HCl 4 mg 11/03/24 16:10 Ondansetron Inj 2 Mg/Ml Inj 2 Ml IV 12/03/24 16:09 Q6H PRN NAUSEA OR VOMITING Protocol Sennosides 1 tab 11/03/24 16:10 Senna Tablet PO 12/03/24 16:09 BID PRN CONSTIPATION Protocol Sodium Chloride 3 ml 11/03/24 17:38 Sodium Chloride Rt Ashleigh 0.9% 3 Ml Nebu INH 12/03/24 17:37 PRN PRN SOLN Plan Mr. Springer is a 59-year-old male with past medical history significant for hypertension, hyperlipidemia, type 2 diabetes and end-stage renal disease on hemodialysis Monday with Dr. Newton as his primary director of orthopedics presented to the ED after experiencing cough for 2 days causing left-sided chest pain below nipple. Pt is admitted for further management of #Afib with RVR. -EKG on 11/04/2024 showed Afib with RVR with HR in 130s. Plan: -notify cardiology. -amiodarone drip. #Chest pain, resolved. #Pericardial effusions. #Elevated BNP. #Elevated Troponins. -Pt complains of left sided chest pain that is worse when laying on left side. The pain does not radiate and does not reproduce. -BNP is 674 and troponin 0.346 -> 0.563 -> 0.457. -Pt does not appear to have cardiac temponade, as BP is 163/91 and HR 110 -EKG is evident of sinus tachycardia with accational PCVc and non specific ST & T wave abnormallity -CXR and CT- Prominent pericardial effusion measuring up to 27 mm, Small left pleural effusion, Mild to moderate enlargement cardiac contour. -Consulted Roof Designer Dr. Bojorquez, appreciate recommendations. Plan: -Echo pending. #Acute Hypoxic Respiratory Failure 2/ #Community acquired pneumonia. #Pleural effusions, left. #Leukocytosis. -Although patient did not complain of any flulike symptoms patient has had a cough for couple days and shortness of breath -Chest x-ray and CT is evident of Significant pneumonia left base., Small left pleural effusion -On admission patient is saturating 94% on 4 L of oxygen WBC 20.4 Plan: - Supplemental oxygen as needed ordered. - Ceftriaxone and azithromycin started 11/03- #ESRD on HD //. #Hyperphosphatemia. -Pt is started of HD in 12/2022 -On admission Cr 7.9, GFR 7. -Follows Dr. Garcia outpatient, however he is on vacation right now therefore will consult covering director of orthopedics Dr. Chávez to resume dialysis as per Pt's schedule. #Normocytic anemia. #Anemia of chronic disease. -Hemoglobin is 7.8, hematocrit 25.2, MCV 90 -No signs of active bleeding, patient denies any episodes of hematemesis, hematochezia or melena -This anemia is likely in the setting of longstanding CKD leading to ESRD Plan: -Will consider transfusion if hemoglobin drops below 7. #Non-insulin dependent Type 2 diabetes. -A1c 5.5% on 12/23/22, A1c 6.9% on 11/04/2024. Plan: -Accu-Chek ACHS. -Insulin sliding scale ordered. -hypoglycemia protocol in place. -A1c ordered for am labs. #Primary hypertension. -Pt's home amlodipine 10mg daily is on hold. -hydralazine on hold. Health Maintenance: Disposition: Telemetry. DVT Prophylaxis: Heparin 5000 units SC Q8 hrs. GI Prophylaxis: not indicated. Diet: Renal Diet. Lines: Peripheral lines. Code status: DNR/DNI. Plan of care discussed with attending Dr. Johansen. Alex Blake MD, PGY 2. Disclaimer: This note was dictated by speech recognition. Minor errors in health technical writer may be present due to voice recognition software. Attending Provider Attestation/Addendum Clark, Madeleine Johansen, , attest that I was physically present for the raphael portions of the service and evaluated the patient with the resident and I reviewed and discussed the case with the resident and agree with the resident's findings and plans of care as documented above Patient seen and evaluated this AM. BP has been low following dialysis during which 3L of fluid was removed. Patient denies shortness of breath, chest pain or lightheadedness. HR noted to range from 110s-130s and appears to have new onset afib. Case discussed with cardiology due to concern for tamponade. 1L of fluid bolus was given due to low BP. Pending echocardiogram. Amiodarone drip started for HR control. Will f/u with cardio recommendations. Pt and son updated, all questions and concerns addressed at bedside.
--- NOTE | 2024-11-04 15:41 | EKG_ITS ---
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 : 1965 Requested By: Giuliano Vidales Order Number: [id number] Reading MD: Giuliano Vidales Measurements Intervals [place] Rate: 134 P: TN: QRS: 81 QRSD: 105 T: -63 QT: 291 QTc: 435 Interpretive Statements ATRIAL FIBRILLATION WITH RAPID VENTRICULAR RESPONSE POSSIBLE ANTERIOR MYOCARDIAL INFARCTION , OF INDETERMINATE AGE MODERATE T-WAVE ABNORMALITY, CONSIDER INFERIOR ISCHEMIA Compared to ECG 11/03/2024 09:29:23 Myocardial infarct finding now present Possible ischemia now present Sinus tachycardia no longer present T-wave abnormality still present /store/S0/[id number].pdf
[2024-11-04] MEDS: cefTRIAXone/D5w 1gm IV premix 1 GM/50 ML BAG IV (16:55)
[2024-11-04] MEDS: INSULIN LISPRO (AdmeLOG) 1 UNIT/0.01 ML UNIT SC (17:04)
--- NOTE | 2024-11-04 17:19 | PC.NURSE ---
Pending transfer to room 257. Attempted to contact EDD Jefferson for report x2 attempts. No response.
--- NOTE | 2024-11-04 17:59 | PC.NURSE ---
Called team A regarding pt tele monitor change from sinus tach. MD Rebolledo and Kitty came to bedside and ordered for EKG along with Amiodarone drip. Pt to transfer to 2nd floor to continue plan of care.
[2024-11-04] MEDS: AMIODARONE 150 MG IVPB 150 MG/100 ML BAG 600 MG IV (18:31)
[2024-11-04] MEDS: AMIODARONE 360 MG IVPB 360 MG/200 ML BAG 33.333 MG IV (18:46)
[2024-11-04] MEDS: AZITHROMYCIN INJ 500 MG in SODIUM CHLORIDE 0.9% 250 ML 250 ML 250 MG IV (21:50)
--- NOTE | 2024-11-04 23:12 | PC.NURSE ---
DR NUNES NOTIFIED OF LOW BP , MAP <65 MMHG. PT AAO X4, PT DENIES PAIN, DIZZINESS,LIGHTHEADEDNESS. MD WILL PUT IN ORDER.
[2024-11-04] MEDS: SODIUM CHLORIDE RT SOL 0.9% 3 ML NEBU INH (23:22)
[2024-11-04] MEDS: SODIUM CHLORIDE 0.9% 250 ML 250 ML 999 ML IV (23:24)
--- NOTE | 2024-11-04 23:25 | PC.NURSE ---
DR NUNES CAME TO EVALUATE PT AND NEW ORDER RECEIVED.
[2024-11-04] MEDS: MIDODRINE 5 MG TABLET 10 MG PO (23:35)
[2024-11-05] VITALS (48 sets, daily range): BP systolic 87–141; BP diastolic 52–81; PULSE 72–97; RESP 15–42; TEMP 36.2–36.9; O2SAT 91–100
[2024-11-05] MEDS: AMIODARONE 360 MG IVPB 360 MG/200 ML BAG 16.667 MG IV (00:25)
[2024-11-05] MEDS: HEPARIN SOD INJ 5000 UNIT/ML VIAL SC (05:31)
[2024-11-05 06:07] LABS: Basophils # (Auto) 0.1 Thou/mm3 (0.0-0.2); Basophils % (Auto) 0 % (0-2.5); Eosinophils # (Auto) 0.1 Thou/mm3 (0.0-0.5); Eosinophils % (Auto) 0 % (0-10); Immature Granulocytes % (Auto) 1 % (0-0); Immature Granulocytes Auto 0.17 Thou/mm3 (0.00-0.00); Lymphocytes # (Auto) 1.6 Thou/mm3 (1.0-4.8); Lymphocytes % (Auto) 8 % (10-50); Mean Corpuscular HGB Conc 31.4 g/dl (31.0-37.0); Mean Corpuscular Volume 89 fL (80-100); Monocytes # (Auto) 1.3 Thou/mm3 (0.0-0.8); Monocytes % (Auto) 6 % (0-12); Neutrophils # (Auto) 17.4 Thou/mm3 (1.8-7.7); Neutrophils % (Auto) 85 % (37-80); Nucleated Red Blood Cell # 0.03 Thou/mm3 (0.00-0.00); Nucleated Red Blood Cell % 0 /100 WBC (0); Platelet Count 457 Thou/mm3 (140-440); RDW Standard Deviation 49.3 fL (35.1-43.9); Red Blood Count 2.36 Miln/mm3 (4.50-5.90); White Blood Count 20.6 Thou/mm3 (3.8-10.6)
[2024-11-05 06:21] LABS: Hemoglobin 6.6 g/dL (13.5-16.0)
[2024-11-05] MEDS: LEVALBUTEROL RT 1.25 MG/0.5 ML NEBU INH ×3 (06:28→23:58)
--- NOTE | 2024-11-05 06:37 | PC.NURSE ---
DR. NUÑEZ NOTIFIED OF CONSENT FOR BLOOD TRANSFUSION NEEDS TO BE SIGNED BY HER AND FOR HER TO INFORM PT OF TRANSFUSION ORDER, STATED SHE WILL TELL THE DAYTIME HOSPITALIST.
[2024-11-05 07:03] LABS: Alanine Aminotransferase 213 U/L (10-49); Albumin, Serum 3.8 gm/dL (3.5-5.0); Alkaline Phosphatase 67 U/L (46-116); Anion Gap 11 (7-16); Aspartate Amino Transferase 402 U/L (0-34); BUN/Creatinine Ratio 7 Ratio (12-20); Bilirubin,Total 0.3 mg/dL (0.3-1.2); Blood Urea Nitrogen 46 mg/dL (9-23); Calcium 8.9 mg/dL (8.3-10.6); Calcium (Corrected) 9.1 mg/dL (8.5-10.1); Carbon Dioxide 26.5 mMol/L (20.0-31.0); Chloride 102 mMol/L (98-107); Creatinine (Component) 6.9 mg/dL (0.6-1.3); Estimated Creatinine Clearance 10.5 mL/min (>60); Globulin 3.7 gm/dL (2.3-3.5); Glucose 146 mg/dL (74-106); Magnesium 2.3 mg/dL (1.6-2.6); Osmolality,Calculated 292 (275-295); Phosphorous 6.9 mg/dL (2.4-5.1); Potassium 4.6 mMol/L (3.4-5.1); Sodium 139 mMol/L (136-145); Total Protein 7.5 gm/dL (5.7-8.2); eGFR 9 See Note
[2024-11-05 07:10] LABS: Hepatitis A Antibody IgM Non Reactive (Non React); Hepatitis B Core Antibody IgM Non Reactive (Non React); Hepatitis B Surface Ab Reactive (Immune) (Immune); Hepatitis B Surface Antigen Non Reactive (Non React); Hepatitis C Antibody Non Reactive (Non React)
--- NOTE | 2024-11-05 08:23 | EKG_ITS ---
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
--- NOTE | 2024-11-05 08:57 | PD.IMPROG ---
Documentation for date of: 11/05/24 Subjective Subjective Interval history: pt moved to ICU BP 101/70 HR 76 echo still pending Exam Vital Signs Temp Pulse Resp BP Pulse Ox O2 Del Method O2 Flow Rate 98.3 F 76 23 H 102/62 100 Nasal Cannula 3 11/05/24 04:00 11/05/24 06:29 11/05/24 06:29 11/05/24 04:00 11/05/24 06:29 11/05/24 04:00 11/05/24 06:29 Routine HEENT Exam Head: Present normocephalic and atraumatic Eye: Present EOMI and PERRL ENT: Present mucous membranes moist Routine Neck Exam Neck: Present supple and trachea midline Routine Respiratory Exam Respiratory: Present chest non-tender, lungs clear, normal breath sounds and no resp distress Routine Cardiovascular Exam Cardiovascular: Present RRR Routine Abdominal Exam Abdominal: Present soft and normoactive bowel sounds Routine Extremities Exam Extremities: Present full ROM Routine Skin Exam Skin: Present intact, dry and warm Routine Neurological Exam Neurological: Present alert, oriented X3 and CN II-XII intact Routine Psychiatric Exam Psychiatric: Present normal affect and normal thought process Objective Labs 11/05/24 05:16 11/05/24 05:16 Labs: Laboratory Results - last 24 hr 11/04/24 11/05/24 11/05/24 04:52 05:16 07:53 WBC 20.6 H RBC 2.36 L Hgb 6.6 L* Hct 21.0 L* MCV 89 MCH 28.0 MCHC 31.4 RDW Std Deviation 49.3 H Plt Count 457 H Neut % (Auto) 85 H Lymph % (Auto) 8 L [place] % (Auto) 6 Eos % (Auto) 0 Baso % (Auto) 0 Neut # (Auto) 17.4 H Lymph # (Auto) 1.6 [place] # (Auto) 1.3 H Eos # (Auto) 0.1 Baso # (Auto) 0.1 Immature Gran # (Auto) 0.17 H Absolute Nucleated RBC 0.03 H Immature Gran % 1 H Nucleated RBC % 0 Sodium 139 Potassium 4.6 Chloride 102 Carbon Dioxide 26.5 Anion Gap 11 BUN 46 H Creatinine 6.9 H* D Estim Creat Clear Calc 10.5 L eGFR 9 L* BUN/Creatinine Ratio 7 L Glucose 146 H Calculated Osmolality 292 Calcium 8.9 Corrected Calcium 9.1 Phosphorus 6.9 H Magnesium 2.3 Total Bilirubin 0.3 AST 402 H ALT 213 H Alkaline Phosphatase 67 Troponin I 0.457 H* Total Protein 7.5 Albumin 3.8 Globulin 3.7 H Albumin/Globulin Ratio 1.0 L Hepatitis A IgM Ab Non Reactive Hep Bs Antigen Non Reactive Hep Bs Antibody Reactive (Immune) Hep B Core IgM Ab Non Reactive Hepatitis C Antibody Non Reactive Crossmatch See Detail Blood Bank Wristband ID Yes Assessment & Plan A&P Narrative will f/u echo Time Spent With Patient Time: Total time spent is greater than 50% in coordination of care (as documented) at patient's floor/unit and/or counseling patient:
[2024-11-05] MEDS: SEVELAMER CARBONATE 800 MG TABLET PO (09:09)
[2024-11-05] MEDS: cefTRIAXone/D5w 1gm IV premix 1 GM/50 ML BAG IV (09:09)
--- NOTE | 2024-11-05 10:58 | CHAP ---
Patient was visited by a Spiritual Care Volunteer on 11/05/2024 between 904 and 929 and received comfort, encouragement and/or prayer.
[2024-11-05] MEDS: INSULIN LISPRO (AdmeLOG) 1 UNIT/0.01 ML UNIT SC ×2 (12:06→16:53)
[2024-11-05] MEDS: METOPROLOL SUCCINATE XL 25 MG TABCR PO (12:12)
[2024-11-05] MEDS: SODIUM CHLORIDE RT SOL 0.9% 3 ML NEBU INH ×2 (14:19→23:58)
--- NOTE | 2024-11-05 14:47 | ESPR_ITS ---
RE: EVELIO CONTRERAS : 1965 DATE OF SERVICE: 11/05/2024 HISTORY OF PRESENT ILLNESS: Briefly, he is a 59-year-old gentleman with a past medical history significant for hypertension, type 2 diabetes, hyperlipidemia, ESRD on dialysis every Monday, Monday, and Monday, who was admitted to the hospital in 10/2024 with cough and left-sided chest pain. The patient had dialysis yesterday and had a good run. The patient is in ICU for observation of possible pericardial effusion. The patient has no specific complaint. ALLERGIES: NO KNOWN DRUG ALLERGIES. MEDICATIONS: 1. Acetaminophen. 2. Amiodarone. 3. Amlodipine. 4. Azithromycin. 5. Ceftriaxone. 6. Epogen 39919 units subcutaneously x1. 7. Heparin 5000 units q.8.h. PHYSICAL EXAMINATION: General: Awake, alert, and oriented x3. Vital Signs: Blood pressure of 141/81, heart rate of 81. HEENT: Anicteric sclerae. Normocephalic. Neck: Supple. No JVD. Chest and Lungs: Symmetric expansion. Heart: Without murmur. Abdomen: Soft, nontender. Extremities: No edema. LABORATORY DATA: Hemoglobin 6.6, WBC 20,600, platelet count 457,000. Sodium 139, potassium 4.6, chloride 102, CO2 26.5, BUN 46.9, calcium 8.9, phosphorus 6.9. ASSESSMENT: 1. End-stage renal disease. 2. Hypertension. 3. Type 2 diabetes. 4. Severe anemia. PLAN: The patient will be dialyzed again tomorrow. Continue monitoring his H and H and transfuse as needed. DT: 13:51:48 TT: 14:45:00 Ref: [id number] - TID: [id number] MTDD
--- NOTE | 2024-11-05 16:10 | ECHO_ITS ---
Transthoracic Echo Report Ht (in): 63 Wt (lb): 165 Exam Location: Portable Status: Inpatient Bioinformaticist: JESUS Coulter^^^^ Indications: Procedure Performed: BP: 121 / 72 HR: Technical Quality: Fair MEASUREMENTS (Male / Female) Normal Values 2D ECHO LV Diastolic Diameter PLAX 4.2 cm 4.2 - 5.9 / 3.9 - 5.3 cm LV Systolic Diameter PLAX 3.5 cm IVS Diastolic Thickness 1.0 cm 0.6 - 1.0 / 0.6 - 0.9 cm LVPW Diastolic Thickness 0.9 cm 0.6 - 1.0 / 0.6 - 0.9 cm LV Relative Wall Thickness 0.5 LVOT Diameter 1.8 cm Aortic Root Diameter 2.8 cm LA Systolic Diameter LX 3.9 cm 3.0 - 4.0 / 2.7 - 3.8 cm LV Ejection Fraction MOD BP 58.8 % >= 55 % LV Ejection Fraction MOD 4C 55.0 % LV Ejection Fraction 4C AL 56.2 % LV Ejection Fraction MOD 2C 62.7 % LV Ejection Fraction 2C AL 63.9 % LA Volume Index 37.3 cm?/m? 16 - 28 cm?/m? Ascending Aorta Diameter 2.9 cm DOPPLER AV Peak Velocity 171.0 cm/s AV Peak Gradient 11.7 mmHg AV Mean Gradient 8.0 mmHg AV Velocity Time Integral 31.6 cm LVOT Peak Velocity 84.2 cm/s LVOT Peak Gradient 2.8 mmHg LVOT Velocity Time Integral 13.8 cm AV Area Cont Eq vti 1.1 cm? AV Area Cont Eq pk 1.3 cm? MV Peak Velocity 123.0 cm/s MV Peak Gradient 6.1 mmHg MV Mean Velocity 96.8 cm/s MV Mean Gradient 4.0 mmHg MV Area PHT 3.9 cm? MR Peak Velocity 501.0 cm/s MR Peak Gradient 100.4 mmHg Mitral E Point Velocity 113.0 cm/s Mitral A Point Velocity 86.0 cm/s Mitral E to A Ratio 1.3 LV E' Lateral Velocity 7.3 cm/s Mitral E to LV E' Lateral Ratio 15.4 LV E' Septal Velocity 6.9 cm/s Mitral E to LV E' Septal Ratio 16.4 TR Peak Velocity 298.3 cm/s TR Peak Gradient 35.6 mmHg PV Peak Velocity 94.7 cm/s PV Peak Gradient 3.6 mmHg RVOT Peak Velocity 37.7 cm/s FINDINGS Left Ventricle Normal left ventricular size, wall thickness, systolic function with no obvious regional wall motion abnormalities. There is grade II diastolic dysfunction of the left ventricle (pseudonormal filling pattern). The left ventricular ejection fraction is normal, estimated at 55-60%. Right Ventricle The right ventricle is normal in size and systolic function. The estimated right ventricular systolic pressure, 40 mmHg. Left Atrium Upper normal left atrial size. Right Atrium The right atrium is normal by two-dimensional imaging, color flow and Doppler imaging with no structural abnormalities, no thrombus formation present. Atrial Septum The interatrial septum appears normal with no evidence of a shunt. Aorta The aorta is normal by two-dimensional, color flow and Doppler interrogation. Mitral Valve [id number] mitral regurgitation. Mild mitral annular calcification. Aortic Valve Aortic valve sclerosis. Tricuspid Valve There is mild tricuspid valve regurgitation. Pulmonic Valve Trivial pulmonic valve regurgitation. Vessels The pulmonary artery appears normal. The inferior vena cava pulmonary and hepatic veins appear normal. Pericardium There is a small pericardial effusion. CONCLUSIONS indication: pericardial effusion LV appears normal with EF 55-60%. Diastolic Dysfunction II. RV appears normal with RVSP 40 mmHg. Mild MR & MAC AOV sclerosis Mild TR Small pericardial effusion Sudarshan Bojorquez (Electronically Signed) Final Date: 06 November 2024 16:16
--- NOTE | 2024-11-05 20:23 | ESPR_ITS ---
<Statement entered by Sheba Kumar MD - 11/11/24 13:20> I reviewed above note and agree with findings and plans. I have also personally examined the patient with medicine team and went over assessment and plan with medical team including global marketing intern and resident physician. <Statement entered by Alex Blake MD - 11/06/24 15:18> Senior Resident Attestation: I supervised/discussed management plan with global marketing intern physician Dr. Mcfadden, and was involved in the care of this patient. I personally saw and examined the patient and discussed the assessment and plan with the entire medicine team, including my attending. I agree with the assessment and plan as documented. Patient's amiodarone IV was discontinued due to worsening LFTs, metoprolol was started for rate control. Hemoglobin was below 7 and 1 units of PRBC was transfused along with IVF due to hypotension. Will continue current management and monitor patient. Patient's care was discussed with attending physician, Dr. Kumar. Alex Blake MD PGY-2. Documentation for date of: 11/05/24 Subjective Subjective Interval history: Overnight team reported patient's hemoglobin dropped below 6 therefore 1 unit of PRBC is ordered. Patient also had MAP of 59 and patient was given a 250 bolus of normal saline and midodrine is started. Patient seen and examined at bedside this morning. Patient denies any dizziness syncope chest pain. Patient states his chest pain has significantly improved he is currently saturating 93% on 3 L of oxygen. Vitals are stable with blood pressure 121/72 heart rate of 84. Labs are significant for creatinine 6.9 and GFR 9 patient is an ESRD on hemodialysis. Phosphorus is 6.9 7 sevalamir x 1 is given. Patient also went into A-fib yesterday and Amio drip was started however patient developed transaminitis with AST 402 and ALT 213. Repeat EKG showed sinus rhythm therefore per cardio consult we can stop the amnio drip and patient started metoprolol 25 succinate daily and will continue to monitor telemetry.. Patient has no other complaints Exam Vital Signs Temp Pulse Resp BP Pulse Ox O2 Del Method O2 Flow Rate 97.1 F 75 18 127/77 96 Nasal Cannula 3 11/05/24 16:24 11/05/24 16:24 11/05/24 16:24 11/05/24 16:24 11/05/24 16:23 11/05/24 04:00 11/05/24 14:22 Narrative Exam GENERAL: A&Ox3 . pleasant, cooperative middle aged man, not in acute distress NEURO: no focal neurological deficits noted HEENT: Atraumatic, Normocephalic. mucous membranes moist. Eyes open, symmetrical, & clear HEART: Normal Heart Sounds LUNGS: normal breath sounds heard bilaterally ABDOMEN: soft, non-distended, non-tender, bowel sounds heard, no guarding or rebound tenderness SKIN: No Rash or ecchymoses EXTREMITIES: No pitting edema bilaterally in LE, tenderness, able to move all 4 extremities, pedal pulses palpated Objective Labs 11/05/24 05:16 11/05/24 05:16 Labs: Laboratory Results - last 24 hr 11/05/24 11/05/24 05:16 07:53 WBC 20.6 H RBC 2.36 L Hgb 6.6 L* Hct 21.0 L* MCV 89 MCH 28.0 MCHC 31.4 RDW Std Deviation 49.3 H Plt Count 457 H Neut % (Auto) 85 H Lymph % (Auto) 8 L [place] % (Auto) 6 Eos % (Auto) 0 Baso % (Auto) 0 Neut # (Auto) 17.4 H Lymph # (Auto) 1.6 [place] # (Auto) 1.3 H Eos # (Auto) 0.1 Baso # (Auto) 0.1 Immature Gran # (Auto) 0.17 H Absolute Nucleated RBC 0.03 H Immature Gran % 1 H Nucleated RBC % 0 Sodium 139 Potassium 4.6 Chloride 102 Carbon Dioxide 26.5 Anion Gap 11 BUN 46 H Creatinine 6.9 H* D Estim Creat Clear Calc 10.5 L eGFR 9 L* BUN/Creatinine Ratio 7 L Glucose 146 H Calculated Osmolality 292 Calcium 8.9 Corrected Calcium 9.1 Phosphorus 6.9 H Magnesium 2.3 Total Bilirubin 0.3 AST 402 H ALT 213 H Alkaline Phosphatase 67 Total Protein 7.5 Albumin 3.8 Globulin 3.7 H Albumin/Globulin Ratio 1.0 L Hepatitis A IgM Ab Non Reactive Hep Bs Antigen Non Reactive Hep Bs Antibody Reactive (Immune) Hep B Core IgM Ab Non Reactive Hepatitis C Antibody Non Reactive Blood Type A Positive Antibody Screen NEGATIVE Crossmatch See Detail Blood Bank Wristband ID Yes Quality Measures Quality Measures VTE prophylaxis Assessment & Plan Assessment Current Active Medications: Generic Name Dose Route Start Last Admin Trade Name Freq PRN Reason Stop Dose Admin Acetaminophen 650 mg 11/03/24 16:10 Acetaminophen 325 Mg Tablet PO 12/03/24 16:09 Q6H PRN Fever >101.5 Amlodipine Besylate 10 mg 11/03/24 16:30 11/04/24 09:48 Amlodipine Besylate 5 Mg Tablet PO 12/03/24 16:29 Not Given QDAY ADRIANA Dextrose 25 ml 11/03/24 16:24 Dextrose 50%-Water Inj 50 Ml Syringe IV 12/03/24 16:23 Q15MIN PRN BG 50-70 responsive npo pt Dextrose 50 ml 11/03/24 16:24 Dextrose 50%-Water Inj 50 Ml Syringe IV 12/03/24 16:23 Q15MIN PRN BG <50 OR BG <70 & pt unresponsive Glucagon 1 mg 11/03/24 16:24 Glucagon Inj 1 Mg Vial IM Q15MIN PRN BG <70, and no IV access Heparin Sodium (Porcine) 5,000 unit 11/03/24 22:00 11/05/24 14:00 Heparin Sod Inj 5000 Unit/Ml Vial SC 11/17/24 21:59 Not Given Q8HR [facility] Heparin Sodium (Porcine) 3,300 unit 11/04/24 09:54 Heparin Sod Inj 1000 Unit/Ml Vial 10 Ml INDWELLCAT 11/18/24 09:53 X1 PRN DIALYSIS Hydralazine HCl 10 mg 11/03/24 22:00 11/04/24 13:31 Hydralazine Hcl 10 Mg Tablet PO 12/03/24 21:59 Not Given TID [facility] Ceftriaxone Sodium/Dextrose 1 gm in 50 mls @ 100 mls/hr 11/04/24 16:19 11/05/24 09:09 Rocephin/D5w 1gm Iv Premix IV 11/11/24 16:18 100 mls/hr QDAY ADRIANA Administration Azithromycin 500 mg/ Sodium 250 mls @ 250 mls/hr 11/04/24 21:00 11/04/24 22:50 Chloride IV 11/10/24 20:59 Infused QDAY@2100 ADRIANA Infusion Albumin Human 25 gm in 100 mls @ 100 mls/hr 11/04/24 09:54 Albuminar-25 Ivpb IV 11/07/24 09:53 PRN PRN DIALYSIS Insulin Human Lispro 0 unit 11/03/24 17:00 11/05/24 16:53 Insulin Lispro (Admelog) 1 Unit/0.01 Ml Unit SC 12/03/24 16:59 1 unit AC ADRIANA Administration Protocol Levalbuterol HCl 1.25 mg 11/03/24 23:00 11/05/24 14:19 Levalbuterol Rt 1.25 Mg/0.5 Ml Nebu INH 12/03/24 22:59 1.25 mg Q8HRRT ADRIANA Administration Metoprolol Succinate 25 mg 11/05/24 12:15 11/05/24 12:12 Metoprolol Succinate Xl 25 Mg Tabcr PO 12/05/24 12:14 25 mg QDAY ADRIANA Administration Ondansetron HCl 4 mg 11/03/24 16:10 Ondansetron Inj 2 Mg/Ml Inj 2 Ml IV 12/03/24 16:09 Q6H PRN NAUSEA OR VOMITING Protocol Sennosides 1 tab 11/03/24 16:10 Senna Tablet PO 12/03/24 16:09 BID PRN CONSTIPATION Protocol Sodium Chloride 3 ml 11/03/24 17:38 11/05/24 14:19 Sodium Chloride Rt Ashleigh 0.9% 3 Ml Nebu INH 12/03/24 17:37 3 ml PRN PRN Administration SOLN Plan Mr. Springer is a 59-year-old male with past medical history significant for hypertension, hyperlipidemia, type 2 diabetes and end-stage renal disease on hemodialysis Monday with Dr. Newton as his primary appellate conferee presented to the ED after experiencing cough for 2 days causing left-sided chest pain below nipple. Pt is admitted for further management of #Afib with RVR, new onset -EKG on 11/04/2024 showed Afib with RVR with HR in 130s. -Repeat EKG on 11/05 pt is in Sinus rhythm -CHADs-VASc score 2 Plan: -Amiodarone drip was starte don 11/04 -Echo pending -Will hold anticoagualation in the setting of acute anemia -Per Cardio recs, will stop amiodarone drip and transition metoprolol 25 succinate Qday #Transaminitis -Likely secondary to amiodarone, will stop amiodarone and follow-up with liver function test #Chest pain, resolved #Pericardial effusions #Elevated BNP #Elevated Troponins. -Pt complains of left sided chest pain that is worse when laying on left side. The pain does not radiate and does not reproduce. -BNP is 674 and troponin 0.346 -> 0.563 -> 0.457. -Pt does not appear to have cardiac temponade, as BP is 163/91 and HR 110 -EKG is evident of sinus tachycardia with accational PCVc and non specific ST & T wave abnormallity -CXR and CT- Prominent pericardial effusion measuring up to 27 mm, Small left pleural effusion, Mild to moderate enlargement cardiac contour. -Consulted [employer] Crew Boss Dr. Bojorquez, appreciate recommendations. Plan: -Echo pending. #Acute Hypoxic Respiratory Failure 2/2 #Community acquired pneumonia. #Pleural effusions, left. #Leukocytosis. -Although patient did not complain of any flulike symptoms patient has had a cough for couple days and shortness of breath -Chest x-ray and CT is evident of Significant pneumonia left base., Small left pleural effusion -On admission patient is saturating 94% on 4 L of oxygen WBC 20.4 Plan: - Supplemental oxygen as needed ordered. - Ceftriaxone and azithromycin started 11/03- #ESRD on HD //. #Hyperphosphatemia. -Pt is started of HD in 12/2022 -On admission Cr 7.9, GFR 7. -Follows Dr. Garcia outpatient, however he is on vacation right now therefore will consult covering appellate conferee Dr. Chávez to resume dialysis as per Pt's schedule. #Normocytic anemia. #Anemia of chronic disease. -Hemoglobin is 7.8, hematocrit 25.2, MCV 90 -No signs of active bleeding, patient denies any episodes of hematemesis, hematochezia or melena -This anemia is likely in the setting of longstanding CKD leading to ESRD Plan: -FOBT ordered, if positive will consult GI for further work up -Pt is transfused 1 pRBC on 11/05 due to hgb <7 -Will consider transfusion if hemoglobin drops below 7. #Non-insulin dependent Type 2 diabetes. -A1c 5.5% on 12/23/22, A1c 6.9% on 11/04/2024. Plan: -Accu-Chek ACHS. -Insulin sliding scale ordered. -hypoglycemia protocol in place. -A1c ordered for am labs. #Primary hypertension. -Pt's home amlodipine 10mg daily is on hold. -hydralazine on hold. Health Maintenance: Disposition: Telemetry. DVT Prophylaxis: Heparin 5000 units SC Q8 hrs. GI Prophylaxis: not indicated. Diet: Renal Diet. Lines: Peripheral lines. Code status: DNR/DNI. Assessment and plan discussed with my senior resident Dr. Blake & attending physician Dr. Stacy Mcfadden (PGY-1)- Internal medicine resident
[2024-11-05] MEDS: AZITHROMYCIN INJ 500 MG in SODIUM CHLORIDE 0.9% 250 ML 250 ML 250 MG IV (20:37)
[2024-11-05 22:41] LABS: Hematocrit 22.5 % (41.0-53.0)
[2024-11-05 22:45] LABS: Hemoglobin 7.5 g/dL (13.5-16.0)
[2024-11-06] VITALS (25 sets, daily range): BP systolic 103–149; BP diastolic 58–84; PULSE 74–98; RESP 16–31; TEMP 35.9–36.6; O2SAT 90–100; BMI 28.7
[2024-11-06] MEDS: LEVALBUTEROL RT 1.25 MG/0.5 ML NEBU INH ×3 (06:35→22:41)
[2024-11-06] MEDS: SODIUM CHLORIDE RT SOL 0.9% 3 ML NEBU INH ×2 (06:35→14:55)
[2024-11-06] MEDS: EPOETIN ALFA INJ 1,000 UNIT/0.05 ML UNIT 10000 UNIT IV (09:09)
[2024-11-06 09:12] LABS: Basophils # (Auto) 0.1 Thou/mm3 (0.0-0.2); Basophils % (Auto) 0 % (0-2.5); Eosinophils # (Auto) 0.1 Thou/mm3 (0.0-0.5); Eosinophils % (Auto) 1 % (0-10); Hematocrit 25.4 % (41.0-53.0); Immature Granulocytes % (Auto) 1 % (0-0); Immature Granulocytes Auto 0.08 Thou/mm3 (0.00-0.00); Lymphocytes # (Auto) 1.1 Thou/mm3 (1.0-4.8); Lymphocytes % (Auto) 8 % (10-50); Mean Corpuscular HGB Conc 33.1 g/dl (31.0-37.0); Mean Corpuscular Hemoglobin 27.6 pg (25.0-35.0); Mean Corpuscular Volume 84 fL (80-100); Monocytes # (Auto) 0.8 Thou/mm3 (0.0-0.8); Monocytes % (Auto) 6 % (0-12); Neutrophils # (Auto) 11.5 Thou/mm3 (1.8-7.7); Neutrophils % (Auto) 84 % (37-80); Nucleated Red Blood Cell # 0.03 Thou/mm3 (0.00-0.00); Nucleated Red Blood Cell % 0 /100 WBC (0); Platelet Count 508 Thou/mm3 (140-440); RDW Standard Deviation 47.8 fL (35.1-43.9); Red Blood Count 3.04 Miln/mm3 (4.50-5.90); White Blood Count 13.7 Thou/mm3 (3.8-10.6)
[2024-11-06 09:19] LABS: Hemoglobin 8.4 g/dL (13.5-16.0)
[2024-11-06 09:52] LABS: Alanine Aminotransferase 151 U/L (10-49); Albumin, Serum 3.8 gm/dL (3.5-5.0); Alkaline Phosphatase 79 U/L (46-116); Anion Gap 16 (7-16); Aspartate Amino Transferase 81 U/L (0-34); BUN/Creatinine Ratio 8 Ratio (12-20); Bilirubin,Total 0.3 mg/dL (0.3-1.2); Blood Urea Nitrogen 53 mg/dL (9-23); Calcium 8.9 mg/dL (8.3-10.6); Calcium (Corrected) 9.1 mg/dL (8.5-10.1); Carbon Dioxide 24.6 mMol/L (20.0-31.0); Chloride 100 mMol/L (98-107); Creatinine (Component) 6.4 mg/dL (0.6-1.3); Estimated Creatinine Clearance 11.3 mL/min (>60); Globulin 3.8 gm/dL (2.3-3.5); Glucose 168 mg/dL (74-106); Magnesium 2.3 mg/dL (1.6-2.6); Osmolality,Calculated 299 (275-295); Phosphorous 6.4 mg/dL (2.4-5.1); Potassium 3.5 mMol/L (3.4-5.1); Sodium 141 mMol/L (136-145); Total Protein 7.6 gm/dL (5.7-8.2); eGFR 9 See Note
--- NOTE | 2024-11-06 11:42 | ESPR_ITS ---
<Statement entered by Sheba Kumar MD - 11/12/24 13:39> I reviewed above note and agree with findings and plans. I have also personally examined the patient with medicine team and went over assessment and plan with medical team including internal control specialist and resident physician. <Statement entered by Alex Blake MD - 11/09/24 14:32> Senior Resident Attestation: I supervised/discussed management plan with internal control specialist physician Dr. Mcfadden, and was involved in the care of this patient. I personally saw and examined the patient and discussed the assessment and plan with the entire medicine team, including my attending. I agree with the assessment and plan as documented. Eliquis was discontinued due to high risk of bleeding. Will continue rate control medications. He underwent HD today. Patient's care was discussed with attending physician, Dr. Kumar. Alex Blake MD PGY-2. Documentation for date of: 11/06/24 Subjective Subjective Interval history: No acute overnight events reported. Pt is seen and examined at bedside this morning. Pt underwent dialysis today, and states that he feels good and does not have nay complaints. FOBT was ordered yesterday however it was not done. Pt denies any history of melena or hematochezia. Due to new diagnoses of paroxysmal afib and CHADsVAS score of 2, pt will need anticoagulation however unable to start due to anemia unknown source of bleeding or not. Explained to pt and he is agreeable. Will try to collect FOBT when pt has a BM to determine if anticoagulation can be started. Telemetry is reviewed and pt is in sinus rhythm, will continue metroprolol succinate 25mg, vitals are stable. Transiminitis has significantly improved. pt has no other complains. Exam Vital Signs Temp Pulse Resp BP Pulse Ox O2 Del Method O2 Flow Rate 97.8 F 83 17 123/72 96 Nasal Cannula 2 11/06/24 11:17 11/06/24 11:15 11/06/24 11:17 11/06/24 11:15 11/06/24 11:17 11/06/24 07:45 11/06/24 11:17 Narrative Exam GENERAL: A&Ox3 . pleasant, cooperative middle aged man, not in acute distress NEURO: no focal neurological deficits noted HEENT: Atraumatic, Normocephalic. mucous membranes moist. Eyes open, symmetrical, & clear HEART: Normal Heart Sounds LUNGS: normal breath sounds heard bilaterally ABDOMEN: soft, non-distended, non-tender, bowel sounds heard, no guarding or rebound tenderness SKIN: No Rash or ecchymoses EXTREMITIES: No pitting edema bilaterally in LE, tenderness, able to move all 4 extremities, pedal pulses palpated Objective Labs 11/06/24 08:41 11/06/24 08:41 Labs: Laboratory Results - last 24 hr 11/05/24 11/05/24 11/06/24 07:53 22:26 08:41 WBC 13.7 H D RBC 3.04 L Hgb 7.5 L 8.4 L Hct 22.5 L 25.4 L MCV 84 MCH 27.6 MCHC 33.1 RDW Std Deviation 47.8 H Plt Count 508 H D Neut % (Auto) 84 H Lymph % (Auto) 8 L [place] % (Auto) 6 Eos % (Auto) 1 Baso % (Auto) 0 Neut # (Auto) 11.5 H Lymph # (Auto) 1.1 [place] # (Auto) 0.8 Eos # (Auto) 0.1 Baso # (Auto) 0.1 Immature Gran # (Auto) 0.08 H Absolute Nucleated RBC 0.03 H Immature Gran % 1 H Nucleated RBC % 0 Sodium 141 Potassium 3.5 D Chloride 100 Carbon Dioxide 24.6 Anion Gap 16 BUN 53 H Creatinine 6.4 H* D Estim Creat Clear Calc 11.3 L eGFR 9 L* BUN/Creatinine Ratio 8 L Glucose 168 H Calculated Osmolality 299 H Calcium 8.9 Corrected Calcium 9.1 Phosphorus 6.4 H Magnesium 2.3 Total Bilirubin 0.3 AST 81 H ALT 151 H Alkaline Phosphatase 79 Total Protein 7.6 Albumin 3.8 Globulin 3.8 H Albumin/Globulin Ratio 1.0 L Blood Type A Positive Antibody Screen NEGATIVE Crossmatch See Detail Blood Bank Wristband ID Yes Quality Measures Quality Measures VTE prophylaxis Assessment & Plan Assessment Current Active Medications: Generic Name Dose Route Start Last Admin Trade Name Freq PRN Reason Stop Dose Admin Acetaminophen 650 mg 11/03/24 16:10 Acetaminophen 325 Mg Tablet PO 12/03/24 16:09 Q6H PRN Fever >101.5 Amlodipine Besylate 10 mg 11/03/24 16:30 11/04/24 09:48 Amlodipine Besylate 5 Mg Tablet PO 12/03/24 16:29 Not Given QDAY ADRIANA Dextrose 25 ml 11/03/24 16:24 Dextrose 50%-Water Inj 50 Ml Syringe IV 12/03/24 16:23 Q15MIN PRN BG 50-70 responsive npo pt Dextrose 50 ml 11/03/24 16:24 Dextrose 50%-Water Inj 50 Ml Syringe IV 12/03/24 16:23 Q15MIN PRN BG <50 OR BG <70 & pt unresponsive Glucagon 1 mg 11/03/24 16:24 Glucagon Inj 1 Mg Vial IM Q15MIN PRN BG <70, and no IV access Heparin Sodium (Porcine) 5,000 unit 11/03/24 22:00 11/05/24 14:00 Heparin Sod Inj 5000 Unit/Ml Vial SC 11/17/24 21:59 Not Given Q8HR [facility] Heparin Sodium (Porcine) 3,300 unit 11/04/24 09:54 Heparin Sod Inj 1000 Unit/Ml Vial 10 Ml INDWELLCAT 11/18/24 09:53 X1 PRN DIALYSIS Hydralazine HCl 10 mg 11/03/24 22:00 11/04/24 13:31 Hydralazine Hcl 10 Mg Tablet PO 12/03/24 21:59 Not Given TID [facility] Ceftriaxone Sodium/Dextrose 1 gm in 50 mls @ 100 mls/hr 11/04/24 16:19 11/05/24 09:09 Rocephin/D5w 1gm Iv Premix IV 11/11/24 16:18 100 mls/hr QDAY ADRIANA Administration Azithromycin 500 mg/ Sodium 250 mls @ 250 mls/hr 11/04/24 21:00 11/05/24 20:37 Chloride IV 11/10/24 20:59 250 mls/hr QDAY@2100 ADRIANA Administration Albumin Human 25 gm in 100 mls @ 100 mls/hr 11/04/24 09:54 Albuminar-25 Ivpb IV 11/07/24 09:53 PRN PRN DIALYSIS Insulin Human Lispro 0 unit 11/03/24 17:00 11/05/24 16:53 Insulin Lispro (Admelog) 1 Unit/0.01 Ml Unit SC 12/03/24 16:59 1 unit AC ADRIANA Administration Protocol Levalbuterol HCl 1.25 mg 11/03/24 23:00 11/06/24 06:35 Levalbuterol Rt 1.25 Mg/0.5 Ml Nebu INH 12/03/24 22:59 1.25 mg Q8HRRT ADRIANA Administration Metoprolol Succinate 25 mg 11/05/24 12:15 11/05/24 12:12 Metoprolol Succinate Xl 25 Mg Tabcr PO 12/05/24 12:14 25 mg QDAY ADRIANA Administration Ondansetron HCl 4 mg 11/03/24 16:10 Ondansetron Inj 2 Mg/Ml Inj 2 Ml IV 12/03/24 16:09 Q6H PRN NAUSEA OR VOMITING Protocol Sennosides 1 tab 11/03/24 16:10 Senna Tablet PO 12/03/24 16:09 BID PRN CONSTIPATION Protocol Sodium Chloride 3 ml 11/03/24 17:38 11/06/24 06:35 Sodium Chloride Rt Ashleigh 0.9% 3 Ml Nebu INH 12/03/24 17:37 3 ml PRN PRN Administration SOLN Plan Mr. Springer is a 59-year-old male with past medical history significant for hypertension, hyperlipidemia, type 2 diabetes and end-stage renal disease on hemodialysis Monday with Dr. Newton as his primary iuss acoustic analyst presented to the ED after experiencing cough for 2 days causing left-sided chest pain below nipple. Pt is admitted for further management of #Paroxysmal A-fib with RVR, new onset - rate controlled -EKG on 11/04/2024 showed Afib with RVR with HR in 130s. -Repeat EKG on 11/05 pt is in Sinus rhythm -CHADs-VASc score 2 Plan: -Amiodarone drip was started don 11/04 -Echo done on 11/05- LV appears normal with EF 55-60%. Diastolic Dysfunction II. RV appears normal with RVSP 40 mmHg. Mild MR & MAC AOV sclerosis Mild TR Small pericardial effusion -Will hold starting anti-coagualation in the setting of acute anemia, will need further work to ensure there is no acute GI bleed -Per Cardio recs, will stop amiodarone drip and transition metoprolol 25 succinate Qday #Chest pain, resolved #Pericardial effusions #Elevated BNP #Elevated Troponins. -Pt complains of left sided chest pain that is worse when laying on left side. The pain does not radiate and does not reproduce. -BNP is 674 and troponin 0.346 -> 0.563 -> 0.457. -Pt does not appear to have cardiac temponade, as BP is 163/91 and HR 110 -EKG is evident of sinus tachycardia with accational PCVc and non specific ST & T wave abnormallity -CXR and CT- Prominent pericardial effusion measuring up to 27 mm, Small left pleural effusion, Mild to moderate enlargement cardiac contour. -Consulted [employer] Attendant Dr. Bojorquez, appreciate recommendations. Plan: -Echo pending. #Transaminitis- improving -Likely secondary to amiodarone, will stop amiodarone and follow-up with liver function test #Acute Hypoxic Respiratory Failure 2/ #Community acquired pneumonia. #Pleural effusions, left. #Leukocytosis. -Although patient did not complain of any flulike symptoms patient has had a cough for couple days and shortness of breath -Chest x-ray and CT is evident of Significant pneumonia left base., Small left pleural effusion -On admission patient is saturating 94% on 4 L of oxygen WBC 20.4 Plan: - Supplemental oxygen as needed ordered. - Ceftriaxone and azithromycin started 11/03- #ESRD on HD //. #Hyperphosphatemia. -Pt is started of HD in 12/2022 -On admission Cr 7.9, GFR 7. -Follows Dr. Garcia outpatient, however he is on vacation right now therefore will consult covering iuss acoustic analyst Dr. Chávez to resume dialysis as per Pt's schedule. #Normocytic anemia. #Anemia of chronic disease. -Hemoglobin is 7.8, hematocrit 25.2, MCV 90 -No signs of active bleeding, patient denies any episodes of hematemesis, hematochezia or melena -This anemia is likely in the setting of longstanding CKD leading to ESRD Plan: -FOBT ordered, if positive will consult GI for further work up -Pt is transfused 1 pRBC on 11/05 due to hgb <7 -Will consider transfusion if hemoglobin drops below 7. #Non-insulin dependent Type 2 diabetes. -A1c 5.5% on 12/23/22, A1c 6.9% on 11/04/2024. Plan: -Accu-Chek ACHS. -Insulin sliding scale ordered. -hypoglycemia protocol in place. -A1c ordered for am labs. #Primary hypertension. -Pt's home amlodipine 10mg daily is on hold. -hydralazine on hold. Health Maintenance: Disposition: Telemetry. DVT Prophylaxis: Heparin 5000 units SC Q8 hrs. GI Prophylaxis: not indicated. Diet: Renal Diet. Lines: Peripheral lines. Code status: DNR/DNI. Assessment and plan discussed with my senior resident Dr. Blake & attending physician Dr. Stacy Mcfadden (PGY-1)- Internal medicine resident
[2024-11-06] MEDS: cefTRIAXone/D5w 1gm IV premix 1 GM/50 ML BAG IV (11:51)
[2024-11-06] MEDS: METOPROLOL SUCCINATE XL 25 MG TABCR PO (11:51)
[2024-11-06] MEDS: INSULIN LISPRO (AdmeLOG) 1 UNIT/0.01 ML UNIT SC ×2 (12:03→16:46)
--- NOTE | 2024-11-06 12:22 | ESCONSULT_ITS ---
RE: EVELIO CONTRERAS : 1965 DATE OF CONSULTATION: 11/04/2024 REASON FOR REFERRAL: ESRD management. REFERRING PHYSICIAN: Dr. Mcdowell HISTORY OF PRESENT ILLNESS: This patient is a 59-year-old Welsh- speaking only gentleman with a past medical history significant for hypertension, type 2 diabetes, ESRD on dialysis every Monday, Monday and Monday who presented to the emergency room last night with cough and left-sided chest pain. The patient had a CAT scan of the chest yesterday and he was found with pericardial effusion. The patient is currently on dialysis and somehow tolerating dialysis. The patient said that he has never missed any dialysis sessions in the past and he also claims that he has no history of getting volume overloaded. PAST MEDICAL HISTORY: Type 2 diabetes, hypertension, hyperlipidemia. CURRENT MEDICATIONS: 1. Acetaminophen 2. Albumin 3. Amiodarone 4. Amlodipine 10 mg daily 5. Azithromycin 6. Rocephin 7. Epogen 10,000 units SQ x1. 8. Hydralazine 9. Lispro 10. Ondansetron PHYSICAL EXAMINATION: General: He is awake, alert and oriented, currently on dialysis. by the bedside. Vital Signs: Blood pressure of 122/68 mmHg, respiratory rate of 20, heart rate of 120s. HEENT: Anicteric sclerae. Normocephalic. Neck: Supple. No JVD. Chest and Lungs: Symmetrical expansion. Clear breath sounds. Heart: Without murmur. Abdomen: Soft and nontender. Extremities: No edema. LABORATORY DATA: Hemoglobin 7, Sodium 140, potassium 4.8, chloride 100, CO2 27.7, BUN 49, creatinine 9.2, glucose 143 and calcium 8.8. ASSESSMENT: 1. End-stage renal disease. 2. Calf pain. 3. Anemia of chronic disease. 4. Rule out pericardial effusion as seen on CT. 5. Type 2 diabetes. 6. History of hypertension. PLAN: The patient was already referred to cardiology for 2D echocardiogram. He is currently on dialysis and tolerating dialysis somehow. I will also resume his Retacrit 43581 units 3times a week to address his anemia. Next dialysis will be Monday. DT: 19:48:20 TT: 21:05:00 Ref: [id number] - TID: [id number] [facility]
--- NOTE | 2024-11-06 13:47 | PC.SS ---
SS follow up note; Patient was downgraded from ICU. HMG is being monitored, when medically cleared patient will return back home.
[2024-11-06] MEDS: SEVELAMER CARBONATE 800 MG TABLET PO (16:46)
[2024-11-06] MEDS: AZITHROMYCIN INJ 500 MG in SODIUM CHLORIDE 0.9% 250 ML 250 ML 250 MG IV (20:12)
[2024-11-07] VITALS: BP 116/61; PULSE 83; PULSE 87; RESP 23; TEMP 36.2; O2SAT 97
[2024-11-07 04:00] VITALS: BP 103/60; PULSE 78; PULSE 83; RESP 16; TEMP 36.1; O2SAT 95
[2024-11-07 06:00] VITALS: BMI 28.0
[2024-11-07 06:11] LABS: Basophils # (Auto) 0.1 Thou/mm3 (0.0-0.2); Basophils % (Auto) 0 % (0-2.5); Eosinophils # (Auto) 0.2 Thou/mm3 (0.0-0.5); Eosinophils % (Auto) 1 % (0-10); Hematocrit 26.3 % (41.0-53.0); Hemoglobin 8.6 g/dL (13.5-16.0); Immature Granulocytes % (Auto) 1 % (0-0); Immature Granulocytes Auto 0.19 Thou/mm3 (0.00-0.00); Lymphocytes # (Auto) 1.3 Thou/mm3 (1.0-4.8); Lymphocytes % (Auto) 10 % (10-50); Mean Corpuscular HGB Conc 32.7 g/dl (31.0-37.0); Mean Corpuscular Hemoglobin 27.9 pg (25.0-35.0); Mean Corpuscular Volume 85 fL (80-100); Monocytes % (Auto) 8 % (0-12); Neutrophils # (Auto) 10.7 Thou/mm3 (1.8-7.7); Neutrophils % (Auto) 80 % (37-80); Nucleated Red Blood Cell # 0.07 Thou/mm3 (0.00-0.00); Nucleated Red Blood Cell % 1 /100 WBC (0); Platelet Count 445 Thou/mm3 (140-440); RDW Standard Deviation 47.4 fL (35.1-43.9); Red Blood Count 3.08 Miln/mm3 (4.50-5.90); White Blood Count 13.4 Thou/mm3 (3.8-10.6)
[2024-11-07] MEDS: SODIUM CHLORIDE RT SOL 0.9% 3 ML NEBU INH (06:24)
[2024-11-07] MEDS: LEVALBUTEROL RT 1.25 MG/0.5 ML NEBU INH (06:24)
[2024-11-07 06:25] VITALS: PULSE 78; PULSE 90; RESP 18; O2SAT 98; O2SAT 99
[2024-11-07 06:42] LABS: Alanine Aminotransferase 111 U/L (10-49); Albumin, Serum 3.6 gm/dL (3.5-5.0); Albumin/Globulin Ratio 0.9 (1.2-2.2); Alkaline Phosphatase 100 U/L (46-116); Anion Gap 13 (7-16); Aspartate Amino Transferase 46 U/L (0-34); BUN/Creatinine Ratio 7 Ratio (12-20); Bilirubin,Total 0.2 mg/dL (0.3-1.2); Blood Urea Nitrogen 47 mg/dL (9-23); Calcium 8.8 mg/dL (8.3-10.6); Calcium (Corrected) 9.1 mg/dL (8.5-10.1); Carbon Dioxide 25.6 mMol/L (20.0-31.0); Chloride 102 mMol/L (98-107); Creatinine (Component) 6.4 mg/dL (0.6-1.3); Estimated Creatinine Clearance 11.2 mL/min (>60); Globulin 3.8 gm/dL (2.3-3.5); Glucose 149 mg/dL (74-106); Osmolality,Calculated 296 (275-295); Potassium 3.8 mMol/L (3.4-5.1); Sodium 141 mMol/L (136-145); Total Protein 7.4 gm/dL (5.7-8.2); eGFR 9 See Note
[2024-11-07 08:00] VITALS: BP 139/78; PULSE 83; RESP 25; TEMP 36.3; O2SAT 92
[2024-11-07 08:16] VITALS: BP 139/78; PULSE 83
[2024-11-07] MEDS: METOPROLOL SUCCINATE XL 25 MG TABCR PO (08:16)
[2024-11-07] MEDS: cefTRIAXone/D5w 1gm IV premix 1 GM/50 ML BAG IV (08:16)
[2024-11-07 08:21] LABS: OBS Card Lot # 23001; OBS Developer Lot # L3001; OBS Performed By LAB; OBS QC OK? Yes
[2024-11-07 08:41] LABS: Occult Blood, Stool Negative (Negative)
[2024-11-07] MEDS: SEVELAMER CARBONATE 800 MG TABLET PO (09:54)
[2024-11-07] MEDS: POTASSIUM CHLORIDE 20 mEq TABCR PO (09:54)
[2024-11-07] MEDS: INSULIN LISPRO (AdmeLOG) 1 UNIT/0.01 ML UNIT SC (11:52)
[2024-11-07 12:00] VITALS: BP 147/78; PULSE 81; PULSE 85; PULSE 98; RESP 22; TEMP 36.4; O2SAT 94
--- NOTE | 2024-11-07 12:03 | PC.NURSE ---
Ambulated patient on RA, O2 saturation stayed above 95%. Currently resting in bed, RA, O2 sats 93%
--- NOTE | 2024-11-07 12:14 | PD.NEPHPROG ---
Documentation for date of: 11/07/24 Subjective Subjective Interval history: Pt is seen and examined Pt is doing well Pt denies any shortness of breath Exam Vital Signs Temp Pulse Resp BP Pulse Ox O2 Del Method O2 Flow Rate 97.4 F 83 25 H 139/78 H 92 L Nasal Cannula 2 11/07/24 08:00 11/07/24 08:16 11/07/24 08:00 11/07/24 08:16 11/07/24 08:00 11/07/24 08:00 11/07/24 08:00 Narrative Exam General: Awake, alert, and oriented x3. HEENT: Anicteric sclerae. Normocephalic. Neck: Supple. No JVD. Chest and Lungs: Symmetric expansion. Heart: Without murmur. Abdomen: Soft, nontender. Extremities: No edema. Objective Labs 11/07/24 05:44 11/07/24 05:44 Labs: Laboratory Results - last 24 hr 11/07/24 11/07/24 01:29 05:44 WBC 13.4 H RBC 3.08 L Hgb 8.6 L Hct 26.3 L MCV 85 MCH 27.9 MCHC 32.7 RDW Std Deviation 47.4 H Plt Count 445 H D Neut % (Auto) 80 Lymph % (Auto) 10 [place] % (Auto) 8 Eos % (Auto) 1 Baso % (Auto) 0 Neut # (Auto) 10.7 H Lymph # (Auto) 1.3 [place] # (Auto) 1.0 H Eos # (Auto) 0.2 Baso # (Auto) 0.1 Immature Gran # (Auto) 0.19 H Absolute Nucleated RBC 0.07 H Immature Gran % 1 H Nucleated RBC % 1 H Sodium 141 Potassium 3.8 Chloride 102 Carbon Dioxide 25.6 Anion Gap 13 BUN 47 H Creatinine 6.4 H* Estim Creat Clear Calc 11.2 L eGFR 9 L* BUN/Creatinine Ratio 7 L Glucose 149 H Calculated Osmolality 296 H Calcium 8.8 Corrected Calcium 9.1 Phosphorus 6.0 H Magnesium 2.0 Total Bilirubin 0.2 L AST 46 H ALT 111 H Alkaline Phosphatase 100 D Total Protein 7.4 Albumin 3.6 Globulin 3.8 H Albumin/Globulin Ratio 0.9 L Stool Occult Blood Negative Assessment & Plan Assessment and plan (1) Chest pain: Status: Acute (2) Shortness of breath: Status: Acute (3) Pneumonia: Status: Acute (4) End-stage renal disease (ESRD): Status: Acute Assessment and plan: Pt had HD yesterday Pt is going to be discharged resume out pt dialysis after discharge (5) Pericardial effusion: Status: Acute
--- NOTE | 2024-11-07 12:34 | ESDS_ITS ---
<Statement entered by Sheba Kumar MD - 11/13/24 09:28> I reviewed above note and agree with findings and plans. I have also personally examined the patient with medicine team and went over assessment and plan with medical team including healthcare administration internship and resident physician. Planned Discharge Date 11/07/24 DS: Providers Provider Date of admission: 11/03/24 16:05 Primary care physician: Brittani Goel PA-C Admitting Provider: Madeleine Johansen DO Attending Provider on Admission: Sheba Kumar MD Consults: 11/03/24 17:12 Consult to Nephrology Routine Comment: Consulting Provider: Nola Chávez 11/03/24 17:20 Consult to Cardiology Routine Comment: pericardial effusions Consulting Provider: Fide Bojorquez 11/03/24 18:17 Referral [place] Routine Comment: Referral Infection Control Routine Comment: Reason for Infection Control Referral: Current Dialysis Patient Attending Provider on DC: Killian Mcfadden MD Discharging Provider: Killian Mcfadden MD DS: Diagnosis Problem List Completed Was Problem List Reviewed/Reconciled?: Yes Hospital Course Hospital Course Hospital course: Mr. Springer is a 59-year-old male with past medical history significant for hypertension, hyperlipidemia, type 2 diabetes and end-stage renal disease on hemodialysis Monday with Dr. Garcia as his primary bottle feeder presented to [facility] ED on 11/03 presented with a two-day history of cough associated with left-sided chest pain localized below the nipple. Imaging revealed the presence of both pericardial and pleural effusions. The patient was subsequently hospitalized for further management of acute hypoxic respiratory failure, secondary to pneumonia and pleural effusions. A cardiology consultation with Dr. Bojorquez was obtained due to elevated troponin levels and the presence of pericardial effusion. Transthoracic echocardiography demonstrated diastolic dysfunction grade II with a preserved ejection fraction of 55?60%, and a very small pericardial effusion without evidence of cardiac tamponade. The patient was initiated on intravenous antibiotics for treatment of pneumonia, with subsequent improvement in oxygenation. During a routine dialysis session, the patient was found to have new-onset atrial fibrillation with rapid ventricular response (RVR). An amiodarone drip was started on November 04; however, it was discontinued following the development of transaminitis. The patient subsequently maintained sinus rhythm and rate control on metoprolol succinate 25 mg daily. The patient's CHADs VASc score was 2, prompting initiation of anticoagulation therapy with apixaban (Eliquis) 5 mg twice daily following a negative fecal occult blood test (FOBT). The patient's anemia is likely related to end-stage renal disease (ESRD), as gastrointestinal bleeding was ruled out?FOBT remained negative, and the patient denied hematemesis, melena, or hematochezia. The patient has remained in sinus rhythm, is saturating well on room air, has experienced complete resolution of dyspnea, and remains hemodynamically stable. He is deemed medically stable for discharge home with instructions for self-c are. Discharge Recommendations -Please follow up with your primary care provider in 7-10 days -Continue dialysis as scheduled -You completed you antibiotics for pneumonia during hospitalization -During hospitalization you developed a-fib and have been rate controlled with metoprolol which you will continue outpatient. -For a-fib you have also been started on anticoagulation with Eliquis, which is a blood thinner and can increase your risk of bleeding. If you hit your head or fall please seek medical care during to increased risk of bleeding. -If your symptoms return or worse, please return to ED promptly Hospitalization Diagnosis #Paroxysmal A-fib with RVR, new onset - rate controlled #Chest pain, resolved #Pericardial effusions #Elevated BNP #Elevated Troponins. #Transaminitis- improving #Acute Hypoxic Respiratory Failure 2/2 #Community acquired pneumonia. #Pleural effusions, left. #Leukocytosis-resolved #ESRD on HD M//. #Hyperphosphatemia. #Normocytic anemia. #Anemia of chronic disease. #Non-insulin dependent Type 2 diabetes. #Primary hypertension. Assessment and plan discussed with my attending physician Dr. Stacy Mcfadden (PGY-1)- Internal medicine resident Time Spent with Patient Time attestation: Total time spent providing and/or coordinating discharge services: Time spent: Greater than 30 minutes Exam Vital Signs Temp Pulse Resp BP Pulse Ox O2 Del Method O2 Flow Rate 97.4 F 83 25 H 139/78 H 92 L Nasal Cannula 2 11/07/24 08:00 11/07/24 08:16 11/07/24 08:00 11/07/24 08:16 11/07/24 08:00 11/07/24 08:00 11/07/24 08:00 Narrative Exam GENERAL: A&Ox3 . pleasant, cooperative middle aged man, not in acute distress NEURO: no focal neurological deficits noted HEENT: Atraumatic, Normocephalic. mucous membranes moist. Eyes open, symmetrical, & clear HEART: Normal Heart Sounds LUNGS: normal breath sounds heard bilaterally ABDOMEN: soft, non-distended, non-tender, bowel sounds heard, no guarding or rebound tenderness SKIN: No Rash or ecchymoses EXTREMITIES: No pitting edema bilaterally in LE, tenderness, able to move all 4 extremities, pedal pulses palpated Discharge Plan Plan Patient Disposition: HOME (Self Care) Patient condition on transfer: Stable Care Plan Goals: -Please follow up with your primary care provider in 7-10 days -Continue dialysis as scheduled -You completed you antibiotics for pneumonia during hospitalization -During hospitalization you developed a-fib and have been rate controlled with metoprolol which you will continue outpatient. -For a-fib you have also been started on anticoagulation with Eliquis, which is a blood thinner and can increase your risk of bleeding. If you hit your head or fall please seek medical care during to increased risk of bleeding. -If your symptoms return or worse, please return to ED promptly Prescriptions/Referrals Prescriptions/Med Rec: New metoprolol succinate 25 mg Tablet Extended Release 24 Hr 25 mg PO QDAY 30 Days Qty: 30 3RF Eliquis 5 mg tablet 5 mg PO BID 30 Days Qty: 60 0RF Continued Ileana-Koko Rx 1-60-300 mg-mg-mcg tablet 1 tab PO .QD Patient Comments: TAKE ONE TABLET BY MOUTH EVERY DAY VITAMIN Velphoro 500 mg tablet,chewable 500 mg PO TID calcium acetate(phosphat bind) 667 mg Capsule 1,334 mg PO TIDWM Qty: 90 0RF Discontinued metoprolol tartrate 25 mg tablet 25 mg PO Q12H Patient Comments: TAKE ONE TABLET BY MOUTH TWICE DAILY FOR BLOOD PRESSURE Referrals: Brittani Goel PA-C [Primary Care Provider] - Patient/Caregiver Discharge Instructions Education Materials: Diabetes and Kidney Disease, CKD Dc Print Language: Greenlandic Stand Alone Forms: Cherelle Award Info., Patient Portal Info Letter Discharge Order Discharge Orders: Discharge (Routine); Ordered 11/07/24 Ordered By: Killian Mcfadden Quality Discharge Quality Measures VTE prophylaxis
--- NOTE | 2024-11-07 13:35 | PC.NURSE ---
Discharge: Waiting for son to arrive from [place]
== END 2024-11-07 14:30 | disposition home or self-care (01) | DRG 193 ==
LOC: SERX 15:47 → SERHOLD 16:24 → S3NX 11-04 08:25 → S2SX 11-05 09:38 → S3NX 11-06 08:33 → S2SX 11-06 08:33 → S2NX 11-06 08:33
PROVIDERS: Internal Medicine Nephrology; Nurse Practitioner Primary Care; Admitting Provider Internal Medicine; Emergency Provider Family Medicine; PCP Physician Assistant; Visit Provider Internal Medicine
DX: J18.9 Pneumonia, unspecified organism (principal); J96.01 Acute respiratory failure with hypoxia; N18.6 End stage renal disease; I31.39 Other pericardial effusion (noninflammatory); I13.2 Hypertensive heart and chronic kidney disease with heart failure and with stage 5 chronic kidney disease, or end stage renal disease; I50.9 Heart failure, unspecified; E83.39 Other disorders of phosphorus metabolism; E11.22 Type 2 diabetes mellitus with diabetic chronic kidney disease; I48.0 Paroxysmal atrial fibrillation; E78.5 Hyperlipidemia, unspecified; D63.1 Anemia in chronic kidney disease; Z79.84 Long term (current) use of oral hypoglycemic drugs; Z99.2 Dependence on renal dialysis; Z66 Do not resuscitate
CPT/HCPCS: 36415; 71046; 71250; 80053; 80061; 80074; 81001; 82270; 82728; 83036; 83540; 83550; 83735; 83880; 84100; 84484; 85014; 85018; 85025; 86706; 86850; 86900; 86901; 86923; 87040; 87081; 87086; 87811; 93005; 93225; 93306; 94640; 96365; 99285; J0283; J0456; J0696; J1643; J1815; J7040; J7050; P9016; Q4081; A9270

== ENCOUNTER 2025-01-08 07:28 | Emergency (ER) | payer MEDICARE, MEDICAID, SELFPAY ==
[2025-01-08 07:34] VITALS: BP 103/67; PULSE 122; RESP 97; TEMP 37.1; O2SAT 95; BMI 29.5
--- NOTE | 2025-01-08 07:41 | EKG_ITS ---
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
--- NOTE | 2025-01-08 07:41 | XR_ITS ---
Examination: AP chest single view Technique one AP portable upright chest single view Date and time: January 08, 2025 0831 hours INDICATIONS: Patient fell off a ladder today with into the chest, chest pain FINDINGS: Mild prominence left ventricle Moderate vascular congestion. Right internal jugular dialysis catheter tip satisfactory position SVC. No pneumothorax Prominent osteopenia No acute rib fractures depicted IMPRESSION: No pneumothorax or pulmonary contusion
--- NOTE | 2025-01-08 07:41 | XR_ITS ---
Examination: Lumbar spine 3 views Technique one AP lateral coned lateral lower lumbar spine 3 views Date and time: January 08, 2025 0839 hours INDICATIONS: Patient fell off a ladder today with injury to the lower back, lower back pain. FINDINGS: Prominent osteopenia. No acute lumbar fracture. Advanced degenerative disc disease L5-S1 IMPRESSION: No acute lumbar fracture
--- NOTE | 2025-01-08 07:42 | PD.EDRME ---
Rapid Medical Screening Exam RME Arrival date/time: 01/08/25 07:28 59-year-old male ESRD on dialysis presents emergency department today stating that he had a fall from a step ladder yesterday patient reports pain to lower back incidentally patient is noted to be tachycardic Chief Complaint: Fall Vital signs: Vital Signs Temperature 98.7 F 01/08/25 07:34 Pulse Rate 122 H 01/08/25 07:34 Respiratory Rate 97 H 01/08/25 07:34 Blood Pressure 103/67 01/08/25 07:34 Pulse Oximetry (%) 95 01/08/25 07:34 Oxygen Delivery Method Room Air 01/08/25 07:34
[2025-01-08 08:14] LABS: Basophils % (Auto) 0 % (0-2.5); Eosinophils % (Auto) 0 % (0-10); Hematocrit 38.1 % (41.0-53.0); Hemoglobin 12.3 g/dL (13.5-16.0); Immature Granulocytes % (Auto) 1 % (0-0); Immature Granulocytes Auto 0.18 Thou/mm3 (0.00-0.00); Lymphocytes # (Auto) 0.4 Thou/mm3 (1.0-4.8); Lymphocytes % (Auto) 2 % (10-50); Mean Corpuscular HGB Conc 32.3 g/dl (31.0-37.0); Mean Corpuscular Hemoglobin 29.1 pg (25.0-35.0); Mean Corpuscular Volume 90 fL (80-100); Monocytes # (Auto) 1.6 Thou/mm3 (0.0-0.8); Monocytes % (Auto) 8 % (0-12); Neutrophils # (Auto) 17.6 Thou/mm3 (1.8-7.7); Neutrophils % (Auto) 89 % (37-80); Nucleated Red Blood Cell % 0 /100 WBC (0); Platelet Count 212 Thou/mm3 (140-440); RDW Standard Deviation 61.5 fL (35.1-43.9); Red Blood Count 4.22 Miln/mm3 (4.50-5.90); White Blood Count 19.7 Thou/mm3 (3.8-10.6)
[2025-01-08 08:28] LABS: B-Type Natriuretic Peptide 270 pg/mL (0-100)
[2025-01-08 08:38] LABS: Alanine Aminotransferase 11 U/L (10-49); Albumin, Serum 4.1 gm/dL (3.5-5.0); Albumin/Globulin Ratio 1.1 (1.2-2.2); Alkaline Phosphatase 60 U/L (46-116); Anion Gap 17 (7-16); Aspartate Amino Transferase 15 U/L (0-34); BUN/Creatinine Ratio 5 Ratio (12-20); Bilirubin,Total 0.5 mg/dL (0.3-1.2); Blood Urea Nitrogen 52 mg/dL (9-23); Calcium 8.6 mg/dL (8.3-10.6); Calcium (Corrected) 8.6 mg/dL (8.5-10.1); Chloride 95 mMol/L (98-107); Estimated Creatinine Clearance 6.5 mL/min (>60); Globulin 3.7 gm/dL (2.3-3.5); Glucose 173 mg/dL (74-106); Magnesium 2.2 mg/dL (1.6-2.6); Osmolality,Calculated 291 (275-295); Potassium 5.3 mMol/L (3.4-5.1); Sodium 137 mMol/L (136-145); Total Protein 7.8 gm/dL (5.7-8.2); eGFR 5 See Note
[2025-01-08 08:45] LABS: Partial Thromboplastin Time 29.7 Seconds (22.0-36.0); Prothrombin Time 11.2 Seconds (9.0-12.2)
[2025-01-08 08:53] LABS: Creatinine (Component) 11.3 mg/dL (0.6-1.3)
[2025-01-08 08:55] LABS: Troponin I 0.131 ng/mL (0.0-0.045)
--- NOTE | 2025-01-08 12:53 | EDNOTE_ITS ---
ED Fall Injury RME/HPI General Chief Complaint: Fall Stated Complaint: Fall from ladder yesterday Time Seen by Provider: 01/08/25 12:42 Arrival date/time: 01/08/25 07:28 RME / HPI RME / HPI Narrative: 59-year-old male ESRD on dialysis presents emergency department today stating that he had a fall from a step ladder yesterday patient reports pain to lower back incidentally patient is noted to be tachycardic. Patient denies any head i njury denies any headache. Patient denies any neck pain denies any chest pain denies any abdominal pain. Patient is ambulatory. Patient is supposed to do hemodialysis today he called the hemodialysis center, and was told that he can do dialysis tomorrow. Related Data Home Medications ?Medication ?Instructions ?Recorded ?Confirmed sucroferric oxyhydroxide 500 mg 500 mg PO TID 11/03/24 11/03/24 chewable tablet (Velphoro) vitamin B comp no.3-folic acid 1 1 tab PO .QD 11/03/24 11/03/24 mg-vit C 60 mg-biotin 300 mcg tablet (Ileana-Koko Rx) Previous Rx's ?Medication ?Instructions ?Recorded calcium acetate(phosphat bind) 667 1,334 mg (2 x 667 m g) PO TIDWM #90 12/27/22 mg capsule caps metoprolol succinate 25 mg 25 mg PO QDAY 30 days #30 t abs 11/07/24 tablet,extended release 24 hr Allergies Allergy/AdvReac Type Severity Reaction Status Date / Time No Known Allergies Allergy Verified 01/08/25 07:32 Review of Systems Review of Systems Narrative Review of Systems: Review of system reviewed and within normal limits except mentioned in HPI ED Exam Narrative Physical exam: VITAL SIGNS: Reviewed. GENERAL APPEARANCE: Alert and interactive, follows commands, no acute distress, HEAD AND FACE: Non-traumatic. ENT: PERRL, pink conjunctivitis, eyelid no trauma, Mucous membrane moist. NECK: Supple, nontender, no nuchal rigidity. CHEST: No tenderness, no crepitus, no paradoxical movement, no retractions. LUNGS: Clear, well ventilated, symmetric, no rales, no wheezing, no ronchi, no stridor, good breath sounds bilaterally. HEART: Regular rate, regular rhythm, no murmur, no gallops. ABDOMEN: Soft, positive bowel sounds, nondistended, no guarding, nontender, no rebound, no masses, RECTAL: Deferred. GENITAL: Deferred. NEUROLOGICAL: Gross motor function intact sensory function intact, Appropriate for age. MUSCULOSKELETAL: low back tenderness, full range of motion. EXTREMITIES: Nontender, full range of motion. SKIN: Color pink, dry, no rash, no lacerations, no abrasions, no contusions. LYMPHATICS: Deferred. Course Quality Measures none Orders Category Date Time Status EKG (ED ONLY) *Do not use* NOW Care 01/08/25 07:41 Completed EKG (ED Only) Stat Exams 01/08/25 07:41 Draft XR chest 2V Stat Exams 01/08/25 07:41 Completed XR lumbar spine 2-3V Stat Exams 01/08/25 07:41 Completed B-Type Natriuretic Peptide Stat Lab 01/08/25 07:47 Completed CBC Stat Lab 01/08/25 07:47 Completed Comprehensive Metabolic Panel Stat Lab 01/08/25 07:47 Completed Magnesium Stat Lab 01/08/25 07:47 Completed Partial Thromboplastin Time Stat Lab 01/08/25 07:47 Completed Prothrombin Time with INR Stat Lab 01/08/25 07:47 Completed Troponin I Stat Lab 01/08/25 07:47 Completed Sod Polystyrene Sulfon Susp [Kayexalate Susp] Med 01/08/25 12:52 Once 30 gm PO X1 ONE Vital Signs Vital signs: Vital Signs Temperature 98.7 F 01/08/25 07:34 Pulse Rate 122 H 01/08/25 07:34 Respiratory Rate 97 H 01/08/25 07:34 Blood Pressure 103/67 01/08/25 07:34 Pulse Oximetry (%) 95 01/08/25 07:34 Oxygen Delivery Method Room Air 01/08/25 07:34 Fall MDM Narrative MDM Narrative:: 59-year-old male ESRD on dialysis presents emergency department today stating that he had a fall from a step ladder yesterday patient reports pain to lower back incidentally patient is noted to be tachycardic. Patient denies any head injury denies any headache. Patient denies any neck pain denies any chest pain denies any abdominal pain. Patient is ambulatory. Patient is supposed to do hemodialysis today he called the hemodialysis center, and was told that he can do dialysis tomorrow. Patient's workup is significant for slight hyperkalemia of 5.3 creatinine 11.3 BUN of 52. Patient's troponin was noted to be 0.131, it was lower compared to 2 months ago. Patient is not having any chest pain. X-ray of the lumbar spine came back unremarkable. I personally reviewed and interpreted the x-ray of this patient. There is no acute abnormalities found, no infiltrates no pneumothorax no hemothorax normal chest x-ray. Review of other structures was without significant abnormal findings also. I additionally reviewed the radiologist report and agree with the interpretation. EKG showed sinus tachycardia, ventricular rate of 180 bpm, no ST segment elevation depression noted. Patient will have hemodialysis tomorrow. Was given a dose of Kayexalate in the emergency room. Patient stable for discharge home. Patient data External records reviewed:: None Clinical information provided by:: patient Social determinants that could affect healthcare access:: none Patient has the following chronic illnesses:: ESRD diabetes mellitus How is presenting disease/condition affected by chronic disease/condition?: exacerbated by Evaluation data The following diagnostics were reviewed and interpreted by me:: lab results, radiology exam(s) and EKG tracing(s) Lab and/or radiology exams considered but not ordered:: None Interpretation Summary: See results in MDM Medications / Prescriptions Medications or Prescriptions considered but not ordered:: None Medication administrations:: Medication Administration History Discontinued Medications Sodium Polystyrene Sulfonate (Sod Polystyrene Sulfon Susp 15 Gm/60 Ml Btl) 30 gm PO X1 ONE Stop: 01/08/25 12:53 Kayexalate Consultations Consultation(s) initiated? (list below): No Diagnosis Fall Differential Diagnosis: syncope, compression fracture and other (Fall, low back pain lumbar fracture) Most likely diagnosis given after review of the tests above:: Lumbar strain, fall, iESRD on hemodialysis Admission Indicated Admission indicated?: not indicated Admission Request Was there a request for admission?: No Disposition Plan Disposition Plan: Discharge Discharge Attestation Discharge Attestation: The patient and all family members were given an opportunity to ask questions and understood the discharge instructions. Discharge instructions specifically effects, indications for sooner follow up or return to the emergency department, and the expected course of current diagnosis. Patient condition: Stable Discharge Plan Plan Patient Disposition: HOME (Self Care) Discharge Disposition comment: Stable Prescriptions/Referrals Prescriptions/Med Rec: No Action Ileana-Koko Rx 1-60-300 mg-mg-mcg tablet 1 tab PO .QD Patient Comments: TAKE ONE TABLET BY MOUTH EVERY DAY VITAMIN Velphoro 500 mg tablet,chewable 500 mg PO TID metoprolol succinate 25 mg Tablet Extended Release 24 Hr 25 mg PO QDAY 30 Days Qty: 30 3RF calcium acetate(phosphat bind) 667 mg Capsule 1,334 mg PO TIDWM Qty: 90 0RF Referrals: Oswaldo Shell MD [Primary Care Provider] - In 1 week Problem List Clinical Impression: Lumbar strain, Fall, ESRD on dialysis Patient/Caregiver Discharge Instructions Discharge Activity: activity as tolerated Education Materials: ED Back Sprain/Strain Additional Instructions: Thank you for the opportunity for serving you today. You are stable for discharged . You are advised to: Follow-up with your PCP in 1 to 2 days Return to ED for worsening of symptoms Print Language: Armenian Stand Alone Forms: Cherelle Award Info., Patient Portal Info Letter PA/MUKESH Supervising Physician PA/MUKESH Supervising Physician: MD Marlon
[2025-01-08] MEDS: SOD POLYSTYRENE SULFON SUSP 15 GM/60 ML BTL 30 GM PO (13:28)
== END 2025-01-08 13:36 | disposition home or self-care (01) ==
PROVIDERS: Nurse Practitioner Primary Care; Emergency Provider Emergency Medicine; PCP Family Medicine
DX: S39.012A Strain of muscle, fascia and tendon of lower back, initial encounter (principal); N18.6 End stage renal disease; Z99.2 Dependence on renal dialysis; W11.XXXA Fall on and from ladder, initial encounter; I25.2 Old myocardial infarction; R07.9 Chest pain, unspecified
CPT/HCPCS: 36415; 71046; 72100; 80053; 83735; 83880; 84484; 85025; 85610; 85730; 93005; 99283; A9270

== ENCOUNTER 2025-01-15 10:15 | Inpatient (IN) | payer MEDICARE, MEDICAID, SELFPAY ==
[2025-01-15] VITALS (25 sets, daily range): BP systolic 100–190; BP diastolic 41–95; PULSE 67–108; RESP 12–19; TEMP 36.4–37.3; O2SAT 92–100; BMI 28.8; BMI 29.7
--- NOTE | 2025-01-15 10:46 | XR_ITS ---
Examination: AP chest single view TECHNIQUE: Portable upright AP chest single view Date and time: January 15, 2025 1149 hours Comparison January 08, 2025 INDICATIONS: Chest pain beginning 2 days ago. FINDINGS: Mild enlargement cardiac contour. Moderate vascular congestion. No lobar pneumonia or pulmonary edema. Right internal jugular dialysis catheter tip right atrium IMPRESSION: Moderate vascular congestion
--- NOTE | 2025-01-15 10:46 | EKG_ITS ---
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: : 1965 Requested By: Yoly Waters Order Number: [id number] Reading MD: Yoly Waters Measurements Intervals [place] Rate: 91 P: 50 [place]: 198 QRS: 80 QRSD: 106 T: -82 QT: 371 QTc: 458 Interpretive Statements SINUS RHYTHM SEPTAL MYOCARDIAL INFARCTION , PROBABLY OLD [40+ ms Q WAVE IN V1/V2] MODERATE T-WAVE ABNORMALITY, CONSIDER ANTEROLATERAL ISCHEMIA [-0.1+ mV T-WAVE IN V3-V6] MODERATE T-WAVE ABNORMALITY, CONSIDER INFERIOR ISCHEMIA [-0.1+ mV T-WAVE IN II/aVF] Compared to ECG 01/08/2025 07:42:22 T-wave abnormality now present Possible ischemia now present Sinus tachycardia no longer present Myocardial infarct finding still present /store/S0/[id number]/[id number]
--- NOTE | 2025-01-15 10:46 | XR_ITS ---
Examination: CT brain head without contrast. 2-D sagittal coronal reconstructions Date and time of exam:January 15, 2025 1142 hours INDICATIONS: Onset altered mental status today CTDI: vol (mGy):49.4 DLP: (mGycm):978 Technique: Multiple CT axial sections of the brain have been obtained, 5 mm slice thickness. Contrast has not been administered. 2-D sagittal, coronal reconstructions have been obtained Low dose protocols were performed. One or more of the following dose reduction techniques were used; automated exposure control, adjustment of the mA and/or KV according to patient size, use of iterative reconstruction technique. Findings: No significant ventricular enlargement. Intra-axial or extra-axial hemorrhage density is not seen. No mass effect or midline shift Basal cisterns are not remarkable. Fourth ventricle is midline. Cranial vault intact. Impression: Negative for acute hemorrhage, mass effect or midline shift Advise clinical correlation and follow-up accordingly
[2025-01-15 11:41] LABS: Lactate (Lactic Acid) 1.7 mMol/L (0.4-2.0)
[2025-01-15 11:47] LABS: Basophils # (Auto) 0.1 Thou/mm3 (0.0-0.2); Basophils % (Auto) 0 % (0-2.5); Eosinophils # (Auto) 0.0 Thou/mm3 (0.0-0.5); Eosinophils % (Auto) 0 % (0-10); Hematocrit 36.1 % (41.0-53.0); Hemoglobin 12.6 g/dL (13.5-16.0); Immature Granulocytes Auto 1.18 Thou/mm3 (0.00-0.00); Lymphocytes # (Auto) 0.6 Thou/mm3 (1.0-4.8); Lymphocytes % (Auto) 2 % (10-50); Mean Corpuscular HGB Conc 34.9 g/dl (31.0-37.0); Mean Corpuscular Hemoglobin 29.0 pg (25.0-35.0); Mean Corpuscular Volume 83 fL (80-100); Monocytes # (Auto) 1.7 Thou/mm3 (0.0-0.8); Monocytes % (Auto) 5 % (0-12); Neutrophils # (Auto) 28.2 Thou/mm3 (1.8-7.7); Neutrophils % (Auto) 89 % (37-80); Nucleated Red Blood Cell # 0.03 Thou/mm3 (0.00-0.00); Nucleated Red Blood Cell % 0 /100 WBC (0); Platelet Count 82 Thou/mm3 (140-440); RDW Standard Deviation 57.9 fL (35.1-43.9); Red Blood Count 4.35 Miln/mm3 (4.50-5.90); White Blood Count 31.8 Thou/mm3 (3.8-10.6)
[2025-01-15 11:56] LABS: INR 1.0 (0.9-1.3); Partial Thromboplastin Time 23.9 Seconds (22.0-36.0); Prothrombin Time 10.9 Seconds (9.0-12.2)
[2025-01-15 12:03] LABS: B-Type Natriuretic Peptide 506 pg/mL (0-100)
[2025-01-15 12:28] LABS: Alanine Aminotransferase 30 U/L (10-49); Albumin, Serum 3.5 gm/dL (3.5-5.0); Albumin/Globulin Ratio 0.9 (1.2-2.2); Alkaline Phosphatase 161 U/L (46-116); Anion Gap 21 (7-16); Aspartate Amino Transferase 22 U/L (0-34); BUN/Creatinine Ratio 9 Ratio (12-20); Bilirubin,Total 1.1 mg/dL (0.3-1.2); Calcium 8.5 mg/dL (8.3-10.6); Calcium (Corrected) 8.9 mg/dL (8.5-10.1); Carbon Dioxide 19.6 mMol/L (20.0-31.0); Chloride 95 mMol/L (98-107); Estimated Creatinine Clearance 5.3 mL/min (>60); Globulin 3.9 gm/dL (2.3-3.5); Glucose 191 mg/dL (74-106); Lipase 45 U/L (12-53); Magnesium 2.7 mg/dL (1.6-2.6); Osmolality,Calculated 315 (275-295); Potassium 5.9 mMol/L (3.4-5.1); Procalcitonin 35.25 ng/ml (0.0-0.49); Sodium 136 mMol/L (136-145); Total Protein 7.4 gm/dL (5.7-8.2); eGFR 4 See Note
[2025-01-15 12:31] LABS: Blood Urea Nitrogen 122 mg/dL (9-23); Creatinine (Component) 13.8 mg/dL (0.6-1.3)
[2025-01-15 12:32] LABS: Troponin I 0.807 ng/mL (0.0-0.045)
--- NOTE | 2025-01-15 12:41 | EDNOTE_ITS ---
<Statement entered by Yoly Benavidez MD - 01/24/25 19:22> As co-signing physician, I was present and available for consult prn. I concur with the plan and care as documented by the midlevel provider. Altered Mental Status RME/HPI General Chief Complaint: Altered Mental Status Stated Complaint: CONFUSION Time Seen by Provider: 01/15/25 10:45 Arrival date/time: 01/15/25 10:15 RME / HPI RME / HPI narrative: 59 year old male with history of hypertension, diabetes, hyperlipidemia, ESRD on HD M/W/ followed by Dr. Garica presents to the ED BIBA from home for evaluation of altered mental status today. Per medics report, family reported that the patient appeared confused today and had missed his scheduled dialysis session. Additionally, the patient reportedly sustained a fall and was evaluated at [facility] recently, where he received Dexamethasone and a lidocaine patch. He was discharged home with no new medications. While in the ED, the patient reports lower back pain and intermittent tingling in the left leg. Denies fever, chills, night sweats, chest pain, cough, or shortness of breath. Denies nausea, vomiting, diarrhea, constipation. Related Data Home Medications ?Medication ?Instructions ?Recorded ?Confirmed sucroferric oxyhydroxide 500 mg 500 mg PO TID 11/03/24 11/03/24 chewable tablet (Velphoro) vitamin B comp no.3-folic acid 1 1 tab PO .QD 11/03/24 11/03/24 mg-vit C 60 mg-biotin 300 mcg tablet (Ileana-Koko Rx) Previous Rx's ?Medication ?Instructions ?Recorded calcium acetate(phosphat bind) 667 1,334 mg (2 x 667 m g) PO TIDWM #90 12/27/22 mg capsule caps metoprolol succinate 25 mg 25 mg PO QDAY 30 days #30 t abs 11/07/24 tablet,extended release 24 hr Allergies Allergy/AdvReac Type Severity Reaction Status Date / Time No Known Allergies Allergy Verified 01/08/25 07:32 Review of Systems Review of Systems Systems Reviewed: All systems reviewed, normal except as documented Past Medical History Past Medical History CARDIAC: Positive Cardiac Disorders, Hypercholesterolemia, Congestive Heart Failure and Hypertension GENITOURINARY: Positive Genitourinary Disorders, Renal Disease and Dialysis ENDOCRINE: Positive Endocrine Disorders and Diabetes Mellitus Type 2 Family History FAMILY HISTORY: Positive Family Cancer Surgical History SURGICAL: Negative Pacemaker or Vasectomy Social History SMOKING STATUS: Never smoker ED Exam Narrative Physical exam: GENERAL APPEARANCE: alert, appears mildly confused, well-developed, well- nourished, no acute distress HEENT: Normocephalic, atraumatic; pupils equal, round, reactive to light; EOMI; mucous membranes pink, moist; oropharynx clear NECK: Supple LUNGS: CTABL; no wheezes, no rales, no rhonchi HEART: Regular rate, regular rhythm; normal S1, S2; no murmurs ABDOMEN: mildly distended; normal BS; soft, no tenderness, no guarding, no rebound; no masses, no organomegaly, no hernia BACK: no CVA tenderness EXTREMITIES: atraumatic; no edema NEUROLOGIC: awake; appears mildly confused; cranial nerves II-XII grossly intact; no focal sensory or motor deficits PSYCHIATRIC: appropriate mood and affect SKIN: warm, dry, normal color; no rashes Course Quality Measures none Orders Category Date Time Status Admit to Inpatient Status Routine Admission 01/15/25 15:28 Active Patient Condition Routine Admission 01/15/25 15:28 Ordered Bedside Blood Glucose NOW Care 01/15/25 12:19 Active Can Filling And Closing Machine Tender NOW Care 01/15/25 10:46 Active Dialysis [Hemodialysis] Urgent Care 01/15/25 13:23 Active EKG (ED ONLY) *Do not use* NOW Care 01/15/25 10:46 Completed In and Out Catheter X1 Care 01/15/25 12:59 Completed Notify provider NEEDED Care 01/15/25 15:[address] head/brain wo con Stat Exams 01/15/25 10:[address] head/brain wo con Stat Exams 01/15/25 15:27 Ordered EKG (ED Only) Stat Exams 01/15/25 10:46 Draft XR chest 1V portable Stat Exams 01/15/25 10:46 Completed B-Type Natriuretic Peptide Stat Lab 01/15/25 11:29 Completed Blood Culture (Lab) Stat Lab 01/15/25 11:30 Received CBC Stat Lab 01/15/25 11:29 Completed Comprehensive Metabolic Panel Stat Lab 01/15/25 11:29 Completed Lactate (Lactic Acid) Stat Lab 01/15/25 11:29 Completed Lipase Stat Lab 01/15/25 11:29 Completed Magnesium Stat Lab 01/15/25 11:29 Completed Partial Thromboplastin Time Stat Lab 01/15/25 11:29 Completed Procalcitonin Stat Lab 01/15/25 11:29 Completed Prothrombin Time with INR Stat Lab 01/15/25 11:29 Completed Troponin I Stat Lab 01/15/25 11:29 Completed Urinalysis Stat Lab 01/15/25 12:49 Completed Urine Culture Stat Lab 01/15/25 12:49 Received Albumin Human 25% Ivpb [Albuminar-25 Ivpb] Med 01/15/25 13:23 Active 25 gm in 100 ml IV PRN Piperacillin/Tazo 2.25GM Inj [Zosyn Inj] 2.25 gm Med 01/15/25 12:45 Discontinued SODIUM CHLORIDE 0.9% (Popper) [Ns 0.9% (P)] 50 ml IV X1 Vancomycin/Ns 1 gm Ivpb 200 ml Med 01/15/25 12:33 Discontinued IV X1 Code Status Routine Oth 01/15/25 15:27 Ordered Vital Signs Vital signs: Vital Signs Temperature 98.4 F 01/15/25 10:25 Pulse Rate 90 01/15/25 10:25 Respiratory Rate 19 01/15/25 10:25 Blood Pressure 160/92 H 01/15/25 10:25 Pulse Oximetry (%) 100 01/15/25 10:25 Oxygen Delivery Method Nasal Cannula 01/15/25 10:25 Oxygen Flow Rate 6 01/15/25 10:25 Altered Mental Status MDM Narrative MDM Narrative:: Lydia Rodas am scribing for and in the presence of Dr. Benavidez. Patient data External records reviewed:: [facility] previous records (I reviewed ED Visit on 01/08/2025 for back pain) and EMS form Clinical information provided by:: patient and EMS Social determinants that could affect healthcare access:: none Patient has the following chronic illnesses:: hypertension, diabetes, hyperlipidemia, ESRD on HD M/W/F followed by Dr. Garcia How is presenting disease/condition affected by chronic disease/condition?: exacerbated by Evaluation data The following diagnostics were reviewed and interpreted by me:: lab results, radiology exam(s) and EKG tracing(s) (01/15/2025 @ 11:26 AM. Sinus rhythm, rate 91, no STEMI. ) Lab and/or radiology exams considered but not ordered:: None Interpretation Summary: Ordering Physician: Yoly Benavidez MD Date of Service: 01/15/25 Procedure(s): XR chest 1V portable Accession Number(s): [id number] cc: Kota Charles MD; Yoly Benavidez MD~ Examination: AP chest single view TECHNIQUE: Portable upright AP chest single view Date and time: January 15, 2025 1149 hours Comparison January 08, 2025 INDICATIONS: Chest pain beginning 2 days ago. FINDINGS: Mild enlargement cardiac contour. Moderate vascular congestion. No lobar pneumonia or pulmonary edema. Right internal jugular dialysis catheter tip right atrium IMPRESSION: Moderate vascular congestion Dictated By: Kota Charles MD Signed By: <Electronically signed by Kota Charles MD in [place]> 01/15/25 1156 Ordering Physician: Yoly Benavidez MD Date of Service: 01/15/25 Procedure(s): CT head/brain wo con Accession Number(s): [id number] cc: Kota Charles MD; Yoly Benavidez MD~ Examination: CT brain head without contrast. 2-D sagittal coronal reconstructions Date and time of exam:January 15, 2025 1142 hours INDICATIONS: Onset altered mental status today CTDI: vol (mGy):49.4 DLP: (mGycm):978 Technique: Multiple CT axial sections of the brain have been obtained, 5 mm slice thickness. Contrast has not been administered. 2-D sagittal, coronal reconstructions have been obtained Low dose protocols were performed. One or more of the following dose reduction techniques were used; automated exposure control, adjustment of the mA and/or KV according to patient size, use of iterative reconstruction technique. Findings: No significant ventricular enlargement. Intra-axial or extra-axial hemorrhage density is not seen. No mass effect or midline shift Basal cisterns are not remarkable. Fourth ventricle is midline. Cranial vault intact. Impression: Negative for acute hemorrhage, mass effect or midline shift Advise clinical correlation and follow-up accordingly Dictated By: Kota Charles MD Signed By: <Electronically signed by Kota Charles MD in [place]> 01/15/25 1154 Medications / Prescriptions Medications or Prescriptions considered but not ordered:: None Medication administrations:: Medication Administration History Heparin Sodium (Porcine) (Heparin Sod Inj 1000 Unit/Ml Vial 10 Ml) 3,300 unit INDWELLCAT PRN PRN PRN Reason: DIALYSIS Stop: 01/29/25 16:06 Albumin Human (Albuminar-25 Ivpb) 25 gm in 100 mls @ 100 mls/min IV PRN PRN PRN Reason: DIALYSIS Last Admin: 01/15/25 16:00 Dose: 100 mls/min Documented By: Infusion: 01/15/25 14:42 Dose: Infused Documented By: Admin: 01/15/25 14:41 Dose: 100 mls/min Documented By: MM Discontinued Medications Vancomycin/Sodium Chloride (Vancomycin/Ns 1 Gm Ivpb) 200 mls @ 120 mls/hr IV X1 ONE Stop: 01/15/25 14:12 Last Admin: 01/15/25 14:01 Dose: Not Given Documented By: SUZANNE Non-Admin Reason: Held for Dialysis Piperacillin Sod/Tazobactam (Sod 2.25 gm/ Sodium Chloride) 50 mls @ 100 mls/hr IV X1 ONE Stop: 01/15/25 13:14 Last Infusion: 01/15/25 14:01 Dose: Infused Documented By: Admin: 01/15/25 12:58 Dose: 100 mls/hr Documented By: SUZANNE See above Consultations Consultation(s) initiated? (list below): Yes Consultation #1 (Physician, Specialty, Details): I spoke with patients vice chancellor Dr. Garcia. Discussed patients PMHx, HPI, ED course, exam findings, labs, and radiology results. Diagnosis Differential diagnosis altered mental status: altered mental status, hypoglycemia, hyponatremia and sepsis Most likely diagnosis given after review of the tests above:: Acute encephalopathy Admission Indicated Admission indicated?: indicated Admission Request Was there a request for admission?: Yes Admission Attestation Admission request attestation: Discussed case with [] from Hospitalist service regarding admission. Discussed patients ED course, exam findings, labs, and radiology results. The Hospitalist [agrees,declines] to accept the patient for admission. Disposition Plan Disposition Plan: Admit Discharge Plan Plan Patient Disposition: Admit Acute Care w/in Hospital Problem List Clinical Impression: Acute encephalopathy
[2025-01-15 12:56] LABS: Collection Type, Urine Clean Catch
[2025-01-15] MEDS: PIPERACILLIN/TAZO 2.25GM INJ 2.25 GM in SODIUM CHLORIDE 0.9% (Popper) 50 ML IV (12:58)
[2025-01-15 13:18] LABS: Bacteria,Urine 1+; Bilirubin,Urine Negative (Negative); Blood,Urine 1+ (Negative); Color,Urine Yellow (Lt Yel-Yel); Glucose, Urine Negative (Negative); Ketones,Urine Negative (Negative); Leukocyte Esterase,Urine Positive (Negative); Nitrite,Urine Negative (Negative); PH,Urine 5.5 (5.0-7.0); Protein,Urine 1+ (Neg - Trace); RBC,Urine 5 /hpf (0-3); Specific Gravity,Urine 1.022 (1.001-1.035); Squamous Epithelial Cell,Urine < 1 /hpf (0-5); Urobilinogen,Urine Negative mg/dL (0.0-1.0); WBC,Urine 217 /hpf (0-5)
[2025-01-15 13:30] LABS: Clarity,Urine Hazy (Clear/Hazy)
--- NOTE | 2025-01-15 13:41 | PC.NURSE ---
pt up to dialysis via gurney at this time
--- NOTE | 2025-01-15 14:32 | PC.NURSE ---
AP INCREASED BFR TO 275, WILL CONT. TO MONITOR
[2025-01-15] MEDS: ALBUMIN HUMAN 25% IVPB 25 GM/100 ML BTL IV ×2 (14:41→16:00)
--- NOTE | 2025-01-15 14:47 | PC.NURSE ---
PT BP LOW, WHEN PT QUESTIONED PT NOTED TO HAVE NEW ONSET OF SLURRED SPEECH AND DECREASED LOC, RAPID RESPONSE CALLED.PRN ALBUMIN ADMINISTERED, 200ML NS BOLUS ADMINISTERED. W/ORDER TO DECREASE UF GAOL TO JUST A CLEANING ORDER CARRIED OUT, WILL CONT. TO MONITOR
--- NOTE | 2025-01-15 15:27 | XR_ITS ---
Examination: CT brain head without contrast. 2-D sagittal coronal reconstructions Date and time of exam:January 15, 2025, 1733 hours Comparison January 15, 2025 at 11:43 AM CTDI: vol (mGy):50.6. DLP: (mGycm):1020. Technique: Multiple CT axial sections of the brain have been obtained, 5 mm slice thickness. Contrast has not been administered. 2-D sagittal, coronal reconstructions have been obtained Low dose protocols were performed. One or more of the following dose reduction techniques were used; automated exposure control, adjustment of the mA and/or KV according to patient size, use of iterative reconstruction technique. Findings: No significant ventricular enlargement. Intra-axial or extra-axial hemorrhage density is not seen. No mass effect or midline shift Basal cisterns are not remarkable. Fourth ventricle is midline. Cranial vault intact. Impression: Negative for acute hemorrhage, mass effect or midline shift As clinically warranted, brain MRI follow-up would best assess for acute ischemic change
--- NOTE | 2025-01-15 15:28 | XR_ITS ---
Examination: CT abdomen and pelvis without contrast. Coronal 3-D reconstructions. Sagittal 2-D reconstructions. Date and time of exam:January 15, 2025 1738 hours INDICATIONS: Acute renal insufficiency today chest and abdominal pain CTDI: vol (mGy): 7.88. DLP: (mGycm): 518. Technique: Axial images of the abdomen have been obtained, 3 mm slice thickness Intravenous contrast material has not been administered. Low dose protocols were performed. One or more of the following dose reduction techniques were used; automated exposure control, adjustment of the mA and/or KV according to patient size, use of iterative reconstruction technique. Findings: Moderate vascular congestion Trace pericardial effusion [id number] enlargement in cardiac contour Liver mildly irregular in contour Hepatomegaly 19 cm Splenomegaly 14 cm Cholelithiasis Gallbladder wall appears mildly thickened No pancreatic mass Tiny 1 mm bilateral renal calculi Anterior right renal mass which may be solid, axial image 118, measuring 32 mm No hydronephrosis or ureteral calculi Trace ascites Normal appendix No bowel obstruction Urinary bladder wall shows thickening at 2 9 mm Transverse prostate dimension 4.6 cm Advanced disc narrowing L5-S1 IMPRESSION: Primary hepatocellular disease versus cirrhosis Hepatosplenomegaly. Trace ascites Tiny bilateral renal calculi Recommend renal sonography follow-up to exclude 32 mm anterior right renal mass Urinary bladder wall thickening, differential would include cystitis
--- NOTE | 2025-01-15 16:03 | PC.NURSE ---
BP LOW, PT AWAKE AND DENIES S/S OF HYPOTENSION. WILL ADMIN PRN ALBUMIN PER MD ORDERS AND CONT. TO MONITOR
[2025-01-15] MEDS: HEPARIN SOD INJ 1000 UNIT/ML VIAL 10 ML 3300 UNIT INDWELLCAT (17:22)
--- NOTE | 2025-01-15 17:49 | PD.RESCONSUL ---
HPI Data of Consult Consult date: 01/15/25 Requesting Physician: Ally Alejo MD Admitting Provider: Ally Alejo MD Attending Provider: Ally Alejo MD Primary Care Provider: Physician No Primary/Family Consult Narrative Reason for consult: Dialysis patient History of present illness: Mr. Springer is a 59? year old male with a relevant medical history of ESRD on HD M/W/F followed by Dr. Garcia, HTN, T2DM, and HLD who presents with altered mental status. In the ED, a rapid response was called due to concerns of the patient having decreased blood pressure down to 102/41, slurred speech, and continued confusion. This prompted a CT head noncontrast, which was negative for acute hemorrhage. Code stroke was ultimately not called for this patient per Dr. Leon. Nephrology was consulted due to Mr. Springer being a dialysis patient who is well known to Dr. Garcia. Due to altered mental status and elevated BUN, uremic encephalopathy was considered. It was noted that the patient's BUN and Cr were much higher than expected for a patient on HD M/W/F and his eGFR was much lower than expected. In the ED, his BUN was 122, Cr was 13.8, and eGFR was 4. When asked if the patient had potentially missed any HD appointments, the patient denied. Nursing staff was later informed by the patient's son that the patient had missed several of his HD sessions last week. cc:: cc: Ally Alejo MD Review of Systems Review of Systems ROS Unobtainable: unobtainable due to mental status Exam Vital Signs Temp Pulse Resp BP Pulse Ox O2 Del Method O2 Flow Rate 99.2 F 108 H 19 133/80 H 96 Nasal Cannula 2 01/15/25 19:47 01/15/25 19:47 01/15/25 19:47 01/15/25 19:47 01/15/25 19:47 01/15/25 19:47 01/15/25 19:47 Narrative Exam Physical Exam: General: Alert, no acute distress. Hemodialysis currently ongoing. Head: Normocephalic, atraumatic. Respiratory: Respirations unlabored, spoke without any wheezing on room air. Psychiatric: Cooperative, appropriate affect. Results Labs 01/16/25 05:01 01/16/25 05:01 Labs: Short CBC 01/15/25 Range/Units 11:29 WBC 31.8 H (3.8-10.6) Thou/mm3 Hgb 12.6 L (13.5-16.0) g/dL Hct 36.1 L (41.0-53.0) % Plt Count 82 L D (140-440) Thou/mm3 BMP 01/15/25 01/15/25 11:29 16:37 Sodium 136 139 Potassium 5.9 H 3.6 D Chloride 95 L 99 Carbon Dioxide 19.6 L 24.7 BUN 122 H* 58 H Creatinine 13.8 H* 6.7 H* D Glucose 191 H 135 H D Calcium 8.5 8.8 Cardiac Enzymes 01/15/25 Range/Units 11:29 Troponin I 0.807 H* (0.0-0.045) ng/mL Liver Function 01/15/25 01/15/25 Range/Units 11:29 16:37 Total Bilirubin 1.1 2.1 H D (0.3-1.2) mg/dL AST 22 19 (0-34) U/L ALT 30 24 (10-49) U/L Alkaline Phosphatase 161 H 157 H (46-116) U/L Albumin 3.5 3.9 (3.5-5.0) gm/dL Urine 01/15/25 Range/Units 12:49 Urine Color Yellow (Lt Yel-Yel) Urine Clarity Hazy (Clear/Hazy) Urine pH 5.5 (5.0-7.0) Ur Specific [place] 1.022 (1.001-1.035) Urine Protein 1+ A (Neg - Trace) Urine Glucose (UA) Negative (Negative) ABG Interpretation ABG results: 01/15/25 19:57 VBG pH 7.48 VBG pCO2 27 L VBG pO2 54 VBG Base Excess -2 Quality Measures Quality Measures none Medications Home Medications and Allergies Home Medications ?Medication ?Instructions ?Recorded ?Confirmed ?Type sucroferric oxyhydroxide 500 mg 500 mg PO TID 11/03/24 11/03/24 History chewable tablet (Velphoro) vitamin B comp no.3-folic acid 1 1 tab PO .QD 11/03/24 11/03/24 History mg-vit C 60 mg-biotin 300 mcg tablet (Ileana-Koko Rx) Allergies Allergy/AdvReac Type Severity Reaction Status Date / Time No Known Allergies Allergy Verified 01/08/25 07:32 Visit Medications Acetaminophen (Acetaminophen 325 Mg Tablet) 650 mg PO Q6H PRN PRN Reason: Fever >101.5 Stop: 02/14/25 18:18 Acetaminophen (Acetaminophen 325 Mg Tablet) 650 mg PO Q6H PRN PRN Reason: PAIN SCALE 1-3 (mild Stop: 02/14/25 18:18 Apixaban (Apixaban 2.5 Mg Tablet) 5 mg PO BID ADRIANA Stop: 02/14/25 20:59 Atorvastatin Calcium (Atorvastatin Calcium 20 Mg Tablet) 80 mg PO HS ADRIANA Stop: 02/14/25 20:59 Calcium Acetate (Calcium Acetate 667 Mg Tablet) 667 mg PO TIDWM ADRIANA Stop: 02/15/25 07:59 Heparin Sodium (Porcine) (Heparin Sod Inj 1000 Unit/Ml Vial 10 Ml) 3,300 unit INDWELLCAT PRN PRN PRN Reason: DIALYSIS Stop: 01/29/25 16:06 Last Admin: 01/15/25 17:22 Dose: 3,300 unit Albumin Human (Albuminar-25 Ivpb) 25 gm in 100 mls @ 100 mls/min IV PRN PRN PRN Reason: DIALYSIS Last Admin: 01/15/25 16:00 Dose: 100 mls/min Piperacillin/Tazobactam/Dextrose (Zosyn) 3.375 gm in 50 mls @ 12.5 mls/hr IV Q12HR ADRIANA Stop: 01/22/25 20:59 Ondansetron HCl (Ondansetron Inj 2 Mg/Ml Inj 2 Ml) 4 mg IVP Q6H PRN; Protocol PRN Reason: NAUSEA OR VOMITING Stop: 02/14/25 18:18 Vitamin B Complex/Vit C/Folic Acid (Vit B12/Vit C/Fa (Nephrovite) Tablet) 1 tab PO QDAY ADRIANA Stop: 02/15/25 08:59 Discontinued Medications Heparin Sodium (Porcine) (Heparin Sod Inj 5000 Unit/Ml Vial) 5,000 unit SC Q12HR ADRIANA Stop: 01/29/25 18:29 Vancomycin/Sodium Chloride (Vancomycin/Ns 1 Gm Ivpb) 200 mls @ 120 mls/hr IV X1 ONE Stop: 01/15/25 14:12 Last Admin: 01/15/25 17:53 Dose: 120 mls/hr Piperacillin Sod/Tazobactam (Sod 2.25 gm/ Sodium Chloride) 50 mls @ 100 mls/hr IV X1 ONE Stop: 01/15/25 13:14 Last Infusion: 01/15/25 14:01 Dose: Infused Assessment & Plan Plan Mr. Springer is a 59? year old male with a relevant medical history of ESRD on HD M/W/F followed by Dr. Garcia, HTN, T2DM, and HLD who presents with altered mental status. Nephrology was consulted for the patient's hemodialysis management. #ESRD on HD M/W/F Patient is well known to Dr. Garcia. BUN, Cr, and eGFR were 122, 13.8, and 4 respectively, suggesting the patient was not able to attend one or more of his HD sessions. This was later confirmed by his son who stated that he missed several sessions last week. Increased BUN may explain the altered mental status due to uremic encephalopathy. - Restart HD M/W/ schedule, starting 01/15/2025 - Certain lab values such as potassium will be low until 3-4 hrs post HD session - Continue to monitor renal function - Nephrology will continue to follow Patient was discussed with the Nephrology attending, Dr. Garcia. Thank you for allowing us to participate in the care of this patient. Bebeto Pino, PGY-1 Attending Provider Attestation/Addendum Pt is seen and examined. seen during dialysis. Agree with assessment and plan by resident. agree with findings Pastor Garcia MD
--- NOTE | 2025-01-15 17:52 | PC.NURSE ---
PER DR. DUMONT, NO STROKE ALERT AT THIS TIME
[2025-01-15] MEDS: VANCOMYCIN/NS 1 GM IVPB 200 ML IV (17:53)
--- NOTE | 2025-01-15 18:27 | XR_ITS ---
Examination: CTA carotids with intravenous contrast CTA brain, head with intravenous contrast. 2-D sagittal, coronal reconstructions. 3-D reconstructions. Exam date and time: January 15, 2025, 1844 hours INDICATIONS: Altered mental status stroke protocol today CTDI: vol (mGy) 22.8. DLP: (mGycm) 456 Technique: Multiple CTA axial brain, head carotid images post intravenous contrast injection 60 cc, [id number]. 2-D sagittal, coronal reconstructions. 3-D reconstructions, 3-D post processing including vascular maximum intensity projection images. Low dose protocols were performed. One or more of the following dose reduction techniques were used; automated exposure control, adjustment of the mA and/or KV according to patient size, use of iterative reconstruction technique. Findings: Prominent vascular congestion No significant common carotid carotid bifurcation or internal carotid artery stenoses. Dominant left vertebral artery with no critical stenoses Heavy calcification intracranial left vertebral artery, 60% stenosis Attenuated basilar artery which does fill as well as posterior cerebral branches Heavy calcification juxtasellar portions internal carotid arteries 50% stenosis on the right 60% stenosis on the left No middle cerebral or anterior cerebral large vessel occlusions IMPRESSION: No significant neck arterial stenoses No critical vertebral artery stenoses in the neck 60% stenosis intracranial left vertebral artery Attenuated basilar artery which does fill with no large vessel occlusions involving the basilar artery or posterior cerebral branches Heavy calcification juxtasellar portions internal carotid arteries, 50% stenosis on the right 60% stenosis on the left No middle cerebral or anterior cerebral artery large vessel occlusions
--- NOTE | 2025-01-15 18:46 | PD.TNEURO ---
Tele Neuro Consultation Consultation Date 01/15/25 Most Recent Vital Signs Last Vital Signs Temp 97.9 F 01/15/25 17:27 Pulse 96 01/15/25 17:27 Resp 18 01/15/25 17:27 BP 149/81 H 01/15/25 17:27 Pulse Ox 97 01/15/25 17:27 O2 Del Method Nasal Cannula 01/15/25 17:27 O2 Flow Rate 2 01/15/25 17:27 Laboratory-Coagulation Panel PT 10.9 Seconds (9.0-12.2) 01/15/25 11:29 INR 1.0 (0.9-1.3) 01/15/25 11:29 APTT 23.9 Seconds (22.0-36.0) 01/15/25 11:29 Consultation Narrative [facility] Patient Name:???jaime skinner Date of :???1965 Identification Number:??? Date of Service:???01/15/2025 18:10:39 Diagnosis:?G93.41 - Encephalopathy Metabolic Impression: ?59 yo M who presents with altered mental status. Head CT personally reviewed on PACS and negative for hemorrhage or acute area of developing infarct on my direct view. Outside window for thrombolytics. Per physician at bedside, has not been walking here at hospital since he arrived so unclear when he last had normal strength/ability to walk; son last saw him normal on Monday morning he states. As such, last known normal at this point is unclear (possibly yesterday but this is not definitive either as son states he does not believe anyone saw patient yesterday), as as such, not a candidate for thrombolytics. CTA head/neck ordered/pending. Pending acute abnormalities noted on CTA, would admit for broad AMS workup including MRI brain. Full recommendations as follows: Our recommendations are outlined below. Recommendations: ? Stroke/Telemetry Floor ? Neuro Checks (Q4) ? Bedside Swallow Eval ?-f/u CTA head/neck ?-obtain MRI brain w/o contrast (routine) ? --if + for acute stroke = will need full stroke workup (including lipid panel, A1c, TTE, antiplatelets/statin, etc) ? --allow for permissive HTN up to 220 systolic while MRI brain pending ? --if MRI negative for stroke = goal of normotension per primary team ?-cont on asa 81 mg po qdaily for now ?-obtain B12, folate, TSH, ammonia ?-obtain UA, CXR ?-obtain UDS, Etoh Level ?-obtain CMP, CBC if not already done ?-consider routine EEG if above workup negative ?-dvt ppx per primary team ?-PT/OT/ST consults - inpatient rehab if recommended ?-call neurology immediately with significant change in exam Advanced Imaging:Advanced imaging has been ordered. Results pending. Metrics: Last Known Well: Unknown Dispatch Time: 01/15/2025 18:10:39 Arrival Time: 01/15/2025 15:28:00 Initial Response Time: 01/15/2025 18:12:26Symptoms: altered mental status. Initial patient interaction: 01/15/2025 18:16:47 NIHSS Assessment Completed: 01/15/2025 18:21:57Patient is not a candidate for Thrombolytic. Thrombolytic Medical Decision: 01/15/2025 18:21:58Patient was not deemed candidate for Thrombolytic because of following reasons: LKW outside 4.[address] Head: I personally reviewed all the CT images that were available to me and it showed: Head CT personally reviewed on PACS and negative for hemorrhage or acute area of developing infarct on my direct view Primary Provider Notified of Diagnostic Impression and Management Plan on: 01/15/2025 18:30:00 History of Present Illness:Patient is a 59 year old Male. Patient was brought by EMS for symptoms of altered mental status. 59 yo M who presents with altered mental status. Per report, patient comes in with weakness and AMS. On hemodialysis 3x/wk. Has missed a couple sessions and came into ED for dialysis. In Dialysis BP in 150s - at one point BP dropped to 100s and he became altered/weak. Rapid response called. Dialysis continued for 40 minutes. Reportedly patient had slight improvement in altered mental status, following more commands. Then after dialysis was completed, head CT was obtained and now more altered. There is mention of left cheek numbness but otherwise no focal deficits reported. Patient confirms he came to hospital to get dialysis. States he missed dialysis recently due to falling down on ladder - states he hit his back and head with fall. Son at bedside states patient lives alone. States he called him yesterday and said e had nightmares but didnt complain of mobility issues; normally independent at home. Today called his cousin to take him to dialysis, when cousin got there he was on the floor and he could not get up. EMS called, patient brought to ED. Last time son saw him normal was Monday morning - moving around normally and talking normally (right before dialysis). Per physician at bedside, has not been walking here at hospital since he arrived so unclear when he last had normal strength/ability to walk. ? Past Medical History: ?Hypertension ?Diabetes Mellitus ?Coronary Artery Disease ?There is no history of Atrial Fibrillation ?There is no history of Stroke ?There is no history of Seizures Other PMH:? ERSD on HD Medications: No Anticoagulant use? No Antiplatelet use Reviewed EMR for current medications Allergies:? Reviewed,NKDA Social History: Smoking: No Family History: There is no family history of premature cerebrovascular disease pertinent to this consultation ROS :?ROS Cannot Be Obtained Because:? Patient Is Confused ? ? Examination: BP(165/120),?Pulse(101),?Blood Glucose(191) 1A: Level of Consciousness - Arouses to minor stimulation?+ 1 1B: Ask Month and Age - 1 Question Right?+ 1 1C: Blink Eyes & Squeeze Hands - Performs 1 Task?+ 1 2: Test Horizontal Extraocular Movements - Normal?+ 0 3: Test Visual Enciso - No Visual Loss?+ 0 4: Test Facial Palsy (Use Grimace if Obtunded) - Minor paralysis (flat nasolabial fold, smile asymmetry)?+ 1 5A: Test Left Arm Motor Drift - No Effort Against Seguin?+ 3 5B: Test Right Arm Motor Drift - No Effort Against Seguin?+ 3 6A: Test Left Leg Motor Drift - No Effort Against Seguin?+ 3 6B: Test Right Leg Motor Drift - No Effort Against Seguin?+ 3 7: Test Limb Ataxia (FNF/Heel-Pantoja) - Does Not Understand?+ 0 8: Test Sensation - Normal; No sensory loss?+ 0 9: Test Language/Aphasia - Severe Aphasia: Fragmentary Expression, Inference Needed, Cannot Identify Materials?+ 2 10: Test Dysarthria - Normal?+ 0 11: Test Extinction/Inattention - No abnormality?+ 0 NIHSS Score:?18 Pre-Morbid Modified [place] Scale:0 Points = No symptoms at all Spoke with :?ED physician at bedside This consult was conducted in real time using interactive audio and video technology. Patient was informed of the technology being used for this visit and agreed to proceed. Patient located in hospital and provider located at home/office setting. Patient is being evaluated for possible acute neurologic impairment and high probability of imminent or life-threatening deterioration. I spent total of 45 minutes providing care to this patient, including time for face to face visit via telemedicine, review of medical records, imaging studies and discussion of findings with providers, the patient and/or family. Dr Gustavo Love [facility] For Inpatient follow-up with [facility] physician please call [facility] at . As we are not an outpatient service for any post hospital discharge needs please contact the hospital for assistance. If you have any questions for the [facility] physicians or need to reconsult for clinical or diagnostic changes please contact us via [facility] at . ?
--- NOTE | 2025-01-15 19:03 | XR_ITS ---
Examination: Retroperitoneal ultrasound, complete Technique: Multiple high resolution grayscale images of the retroperitoneum obtained, including kidneys and bladder. Exam date and time:January 15, 20252011 hours INDICATIONS: Tiny bilateral renal calculi on CT examination of the abdomen today, flank and abdominal pain. FINDINGS: Right kidney 11.0 renal cortex 1.5 cm Upper pole 17 mm cyst lower pole 41 mm cyst Left kidney 11.3 cm renal cortex 1.4 cm Upper pole cyst 15 mm midpole cyst 15 mm lower pole cyst 28 mm 5 mm mid pole left renal calculus Contracted urinary bladder No prostatomegaly IMPRESSION: Benign bilateral renal cysts Bilateral renal cortical thinning Mild to moderate bilateral renal parenchymal scar formation. 5 mm left renal calculus
[2025-01-15 19:14] LABS: Alanine Aminotransferase 24 U/L (10-49); Albumin, Serum 3.9 gm/dL (3.5-5.0); Albumin/Globulin Ratio 1.1 (1.2-2.2); Alkaline Phosphatase 157 U/L (46-116); Anion Gap 15 (7-16); Aspartate Amino Transferase 19 U/L (0-34); BUN/Creatinine Ratio 9 Ratio (12-20); Bilirubin,Total 2.1 mg/dL (0.3-1.2); Blood Urea Nitrogen 58 mg/dL (9-23); Calcium 8.8 mg/dL (8.3-10.6); Calcium (Corrected) 8.9 mg/dL (8.5-10.1); Carbon Dioxide 24.7 mMol/L (20.0-31.0); Cardiac Risk Estimate 30.0 RATIO (4.0-6.7); Chloride 99 mMol/L (98-107); Cholesterol 150 mg/dL (132-200); Creatinine (Component) 6.7 mg/dL (0.6-1.3); Estimated Creatinine Clearance 10.8 mL/min (>60); Globulin 3.4 gm/dL (2.3-3.5); Glucose 135 mg/dL (74-106); HDL Cholesterol < 5 mg/dL (40-60); LDL Cholesterol,Calculated 83 mg/dL (0-130); Magnesium 2.3 mg/dL (1.6-2.6); Osmolality,Calculated 295 (275-295); Phosphorous 7.2 mg/dL (2.4-5.1); Potassium 3.6 mMol/L (3.4-5.1); Sodium 139 mMol/L (136-145); Total Protein 7.3 gm/dL (5.7-8.2); Triglycerides 310 mg/dL (30-150); eGFR 9 See Note
[2025-01-15 19:19] LABS: Folate 7.20 ng/mL (>5.38); Vitamin B12 1497 pg/mL (211-911)
[2025-01-15 20:05] LABS: Base Excess, Venous -2 (-3-3); Lactate (Lactic Acid) 1.8 mMol/L (0.4-2.0); O2 Saturation, Venous 88 % (96-97); PCO2, Venous 27 mmHg (36-56); PO2, Venous 54 mmHg (15-58); pH, Venous 7.48 (7.33-7.66)
[2025-01-15 20:25] LABS: Ammonia 23 uMol/L (11-32)
--- NOTE | 2025-01-15 21:00 | ESCONSULT_ITS ---
HPI Data of Consult Requesting Physician: Ally Alejo MD Admitting Provider: Ally Alejo MD Attending Provider: Ally Alejo MD Primary Care Provider: Physician No Primary/Family Consult Narrative History of present illness: Mr. Springer is a 59 y/o male with PMHx of ESRD on HD (MWF) via R TDC, afib rate controlled, CHF, HTN, hypercholesterolemia, DM2 who presented to the ED 01/15 with AMS, weakness and 2 missed dialysis sessions (missed Monday and Monday of last week 2/2 fall with head strike). Rapid response called 01/15 for decreased BP to 102/41, slurred speech, and confusion. CT head w/o negative for acute hemorrhage. Head Neck CTA shows some stenoses. Patient seen at bedside in ED, would not allow examination as touch to extremities elicited severe pain. Patient confused and agitated, not following commands. cc:: cc: Ally Alejo MD Review of Systems Review of Systems Narrative Review of Systems: Unable to assess 2/2 AMS Exam Vital Signs Temp Pulse Resp BP Pulse Ox O2 Del Method O2 Flow Rate 97.8 F 89 18 119/60 99 Nasal Cannula 2 01/16/25 04:00 01/16/25 04:00 01/16/25 04:00 01/16/25 04:00 01/16/25 04:00 01/15/25 22:54 01/15/25 22:54 Narrative Exam Exam limited due to pain upon examination General: Acute distress, well nourished Eye: Patient keeps eyes closed HENT: Normocephalic, atraumatic Neck: No lymphadenopathy Lungs: Non-labored respirations, symmetric chest rise Heart: Peripheral pulses intact bilaterally Abdomen: Unable to assess Musculoskeletal: Unable to assess Skin: Skin is warm, dry, no rashes or lesions. Neurologic: Awake, not oriented, agitated.Unable to assess further Psychiatric: Agitated Results Labs 01/17/25 04:20 01/17/25 04:20 Labs: Short CBC 01/15/25 01/16/25 Range/Units 11:29 05:01 WBC 31.8 H 29.6 H (3.8-10.6) Thou/mm3 Hgb 12.6 L 10.0 L D (13.5-16.0) g/dL Hct 36.1 L 29.3 L (41.0-53.0) % Plt Count 82 L D 69 L (140-440) Thou/mm3 BMP 01/15/25 01/15/25 01/16/25 11:29 16:37 05:01 Sodium 136 139 137 Potassium 5.9 H 3.6 D 4.8 D Chloride 95 L 99 97 L Carbon Dioxide 19.6 L 24.7 22.9 BUN 122 H* 58 H 68 H Creatinine 13.8 H* 6.7 H* D 8.8 H* D Glucose 191 H 135 H D 173 H Calcium 8.5 8.8 8.7 Cardiac Enzymes 01/15/25 01/16/25 Range/Units 11:29 05:01 Troponin I 0.807 H* 0.689 H* (0.0-0.045) ng/mL Liver Function 01/15/25 01/15/25 01/16/25 Range/Units 11:29 16:37 05:01 Total Bilirubin 1.1 2.1 H D 2.3 H (0.3-1.2) mg/dL AST 22 19 16 (0-34) U/L ALT 30 24 20 (10-49) U/L Alkaline Phosphatase 161 H 157 H 150 H (46-116) U/L Albumin 3.5 3.9 3.2 L D (3.5-5.0) gm/dL Urine 01/15/25 Range/Units 12:49 Urine Color Yellow (Lt Yel-Yel) Urine Clarity Hazy (Clear/Hazy) Urine pH 5.5 (5.0-7.0) Ur Specific [place] 1.022 (1.001-1.035) Urine Protein 1+ A (Neg - Trace) Urine Glucose (UA) Negative (Negative) ABG Interpretation ABG results: 01/15/25 19:57 VBG pH 7.48 VBG pCO2 27 L VBG pO2 54 VBG Base Excess -2 Quality Measures Quality Measures none Medications Home Medications and Allergies Home Medications ?Medication ?Instructions ?Recorded ?Confirmed ?Type sucroferric oxyhydroxide 500 mg 500 mg PO TID 11/03/24 11/03/24 History chewable tablet (Velphoro) vitamin B comp no.3-folic acid 1 1 tab PO .QD 11/03/24 11/03/24 History mg-vit C 60 mg-biotin 300 mcg tablet (Ileana-Koko Rx) apixaban 5 mg tablet (Eliquis) 5 mg PO BID 01/17/25 History Allergies Allergy/AdvReac Type Severity Reaction Status Date / Time No Known Allergies Allergy Verified 01/08/25 07:32 Visit Medications Acetaminophen (Acetaminophen 325 Mg Tablet) 650 mg PO Q6H PRN PRN Reason: Fever >101.5 Stop: 02/14/25 18:18 Acetaminophen (Acetaminophen 325 Mg Tablet) 650 mg PO Q6H PRN PRN Reason: PAIN SCALE 1-3 (mild Stop: 02/14/25 18:18 Hydrocodone Bitart/Acetaminophen (Hydrocodone/Apap 5/325 Tablet) 1 tab PO Q6HR PRN PRN Reason: PAIN SCALE 4-6 (Moderate Stop: 01/21/25 07:54 Apixaban (Apixaban 2.5 Mg Tablet) 5 mg PO BID ADRIANA Stop: 02/14/25 20:59 Last Admin: 01/15/25 21:34 Dose: 5 mg Atorvastatin Calcium (Atorvastatin Calcium 20 Mg Tablet) 80 mg PO HS ADRIANA Stop: 02/14/25 20:59 Last Admin: 01/15/25 21:34 Dose: 80 mg Calcium Acetate (Calcium Acetate 667 Mg Tablet) 667 mg PO TIDWM ADRIANA Stop: 02/15/25 07:59 Dextrose (Dextrose 50%-Water Inj 50 Ml Syringe) 25 ml IV Q15MIN PRN PRN Reason: BG 50-70 responsive npo pt Stop: 02/14/25 23:43 Dextrose (Dextrose 50%-Water Inj 50 Ml Syringe) 50 ml IV Q15MIN PRN PRN Reason: BG <50 OR BG <70 & pt unresponsive Stop: 02/14/25 23:43 Glucagon (Glucagon Inj 1 Mg Vial) 1 mg IM Q15MIN PRN PRN Reason: BG <70, and no IV access Heparin Sodium (Porcine) (Heparin Sod Inj 1000 Unit/Ml Vial 10 Ml) 3,300 unit INDWELLCAT PRN PRN PRN Reason: DIALYSIS Stop: 01/29/25 16:06 Last Admin: 01/15/25 17:22 Dose: 3,300 unit Hydromorphone HCl (Hydromorphone Inj 2 Mg/Ml Vial) 0.25 mg IVP Q4HR PRN PRN Reason: Pain 7-10 Stop: 01/21/25 01:53 Last Admin: 01/16/25 02:03 Dose: 0.25 mg Albumin Human (Albuminar-25 Ivpb) 25 gm in 100 mls @ 100 mls/min IV PRN PRN PRN Reason: DIALYSIS Last Admin: 01/15/25 16:00 Dose: 100 mls/min Piperacillin/Tazobactam/Dextrose (Zosyn) 3.375 gm in 50 mls @ 12.5 mls/hr IV Q12HR [facility] Stop: 01/23/25 08:59 Insulin Human Lispro (Insulin Lispro (Admelog) 1 Unit/0.01 Ml Unit) 0 unit SC AC [facility]; Protocol Stop: 02/15/25 07:29 Last Admin: 01/16/25 08:08 Dose: Not Given Ondansetron HCl (Ondansetron Inj 2 Mg/Ml Inj 2 Ml) 4 mg IVP Q6H PRN; Protocol PRN Reason: NAUSEA OR VOMITING Stop: 02/14/25 18:18 Vitamin B Complex/Vit C/Folic Acid (Vit B12/Vit C/Fa (Nephrovite) Tablet) 1 tab PO QDAY [facility] Stop: 02/15/25 08:59 Discontinued Medications Heparin Sodium (Porcine) (Heparin Sod Inj 5000 Unit/Ml Vial) 5,000 unit SC Q12HR [facility] Stop: 01/29/25 18:29 Last Admin: 01/15/25 21:47 Dose: Not Given Vancomycin/Sodium Chloride (Vancomycin/Ns 1 Gm Ivpb) 200 mls @ 120 mls/hr IV X1 ONE Stop: 01/15/25 14:12 Last Infusion: 01/15/25 19:34 Dose: Infused Piperacillin Sod/Tazobactam (Sod 2.25 gm/ Sodium Chloride) 50 mls @ 100 mls/hr IV X1 ONE Stop: 01/15/25 13:14 Last Infusion: 01/15/25 14:01 Dose: Infused Piperacillin/Tazobactam/Dextrose (Zosyn) 3.375 gm in 50 mls @ 12.5 mls/hr IV Q12HR [facility] Stop: 01/22/25 20:59 Last Admin: 01/15/25 21:34 Dose: 12.5 mls/hr Piperacillin Sod/Tazobactam (Sod 4.5 gm/ Sodium Chloride) 100 mls @ 200 mls/hr IV Q6HR ADRIANA Stop: 01/23/25 07:45 Assessment & Plan Plan #Acute Encephalopathy #ESRD on HD M/W/F #Uremia DDx: Uremic encephalophaty vs stroke vs electrolyte derrangements vs Thyroid abnormalities In the ED, his BUN was 122, Cr was 13.8, and eGFR was 4. Patient missed several HD appts. Teleneuro assessed patient and noted NIHSS score of 18. CT head w/o 01/15/25: Negative for acute hemorrhage, mass effect or midline shift CTA head/neck 01/15/25: No significant neck arterial stenoses. No critical vertebral artery stenoses in the neck. 60% stenosis intracranial left vertebral artery. Attenuated basilar artery which does fill with no large vessel occlusions involving the basilar artery or posterior cerebral branches. Heavy calcification juxtasellar portions internal carotid arteries, 50% stenosis on the right 60% stenosis on the left. No middle cerebral or anterior cerebral artery large vessel occlusions CXR: Moderate vascular congestion febrile, WBC elevated, UA + UTI, serum ammonia WNL, TSH WNL DDX: toxic/metabolic (ESRD on HD, missed HD sessions), infectious (UTI), hypertensive encephalopathy (sBPs reach 190s) Plan - Following with nephrology, known to Dr. Garcia - Pending MR stroke protocol brain w/o contrast with MRA head and neck - Pending ECHO Doppler ordered - Follow - F/U UDS #Diabetes mellitus type 2 Hgb A1C 6.1 (down from 6.9) Plan: - Management per primary team #Paroxysmal A-fib, rate controlled [id number]: 4 HAS-BLED:3 Plan: - Management per primary team - Eliquis 5 mg BID #Reactive Leukocytosis WBC 31.8. No fever. Unknown source Plan Blood and Urine Cx ordered - follow result - Antibiotics per primary team - Vancomycin 1g IV x1 and Zosyn IV (started today) #Hyperlipidemia Plan: - Continue home Atorvastatin 80mg daily Plan discussed with Dr. Abdiaziz Cruz, PGY1 Attending Provider Attestation/Addendum I personally have seen and examined the patient at the bedside and I agreed with findings, assessment and plan of care. Follow up with MRI brain. No focal deficit on exam.
[2025-01-15] MEDS: PIPER/TAZO 3.375 GM PREMIX 3.375 GM/50 ML BAG IV (21:34)
[2025-01-15] MEDS: APIXABAN 2.5 MG TABLET 5 MG PO (21:34)
[2025-01-15] MEDS: ATORVASTATIN CALCIUM 20 MG TABLET 80 MG PO (21:34)
--- NOTE | 2025-01-15 22:23 | ESHP_ITS ---
<Statement entered by Virgilio Crandall MD - 01/15/25 23:51> I have reviewed the note and agree with the resident's assessment & plan with exceptions as below. I have personally reviewed labs, imaging, home meds/prior records, examined the patient, formulated and discussed management plan with the IM team. George is a 59 y/o male with PMHx of ESRD on HD via R T[facility] who comes for evaluation for AMS, weakness and missed dialysis sessions. Rapid response was called for patient during dialylsis for evaluation for not being able to follow commands fully. Head CT was ordered, however dialysis continued. Pt requested to forgo the remaining 40 minutes of dialysis. Pt continued to be more lethargic after dialysis in which stroke alert was called and Teleneuro was consulted. There were some possible focal deficits, with some numbness in the cheek, however, unable to localized full weakness since pt has been experiencing this after a falll that had occurred last week (records at [facility]). NIHSS score of 18, Head Neck CTA shows some stenoses, will follow up with carotid US duplex and MRI. Pt does have paroxysmal afib, rate controlled, will resume AC (CHASVASc:4/ HAS- BLED: 3). Pt found to have renal mass on CT, will follow up with renal US. Cardiac stratification, repeating renal panel, resuming SSI, repeat hematology and chemistry in AM. Virgilio Crandall, PGY-2 Documentation for date of: 01/15/25 HPI History of Present Illness History of present illness: 59 year old male with history of hypertension, diabetes, hyperlipidemia, ESRD on HD M// followed by Dr. Garcia presents to the ED BIBA from home for evaluation of altered mental status today. Per medics report, family reported that the patient appeared confused today and had missed his scheduled dialysis session. Additionally, the patient reportedly sustained a fall and was evaluated at [facility] recently, where he received Dexamethasone and a lidocaine patch. He was discharged home with no new medications. While in the ED, the patient reports lower back pain and intermittent tingling in the left leg. Denies fever, chills, night sweats, chest pain, cough, or shortness of breath. Denies nausea, vomiting, diarrhea, constipation ED course: a rapid response was called due to concerns of the patient having decreased blood pressure down to 102/41, slurred speech, and continued confusion. This prompted a CT head noncontrast, which was negative for acute hemorrhage. Code stroke was ultimately not called for this patient per Dr. Leon. Nephrology was consulted due to patient being a dialysis patient who is well known to Dr. Garcia. Review of Systems Review of Systems Narrative Review of Systems: All systems reviewed, normal except as documented Past Medical History Past Medical History CARDIAC: Positive Cardiac Disorders, Hypercholesterolemia, Congestive Heart Failure and Hypertension GENITOURINARY: Positive Genitourinary Disorders, Renal Disease and Dialysis ENDOCRINE: Positive Endocrine Disorders and Diabetes Mellitus Type 2 Family History OTHER FAMILY HX: Positive Family Cancer Social History SMOKING STATUS: Never smoker Exam Vital Signs Temp Pulse Resp BP Pulse Ox O2 Del Method O2 Flow Rate 99.2 F 108 H 19 133/80 H 96 Nasal Cannula 2 01/15/25 19:47 01/15/25 19:47 01/15/25 19:47 01/15/25 19:47 01/15/25 19:47 01/15/25 19:47 01/15/25 19:47 Narrative Exam GENERAL APPEARANCE: alert, appears moderately confused, well-developed, well- nourished, no acute distress HEENT: Normocephalic, atraumatic; pupils equal, round, reactive to light; EOMI; mucous membranes pink, moist; oropharynx clear NECK: Supple LUNGS: CTABL; no wheezes, no rales, no rhonchi HEART: Regular rate, regular rhythm; normal S1, S2; no murmurs ABDOMEN: mildly distended; normal BS; soft, no tenderness, no guarding, no rebound; no masses, no organomegaly, no hernia BACK: no CVA tenderness EXTREMITIES: atraumatic; no edema NEUROLOGIC: awake; appears moderately confused; slight facial droop to right side; right cheek numbness, cannot move all 4 limbs against gravity PSYCHIATRIC: appropriate mood and affect SKIN: warm, dry, normal color; no rashes Results: Labs 01/16/25 05:01 01/16/25 05:01 Labs: Short CBC 01/15/25 Range/Units 11:29 WBC 31.8 H (3.8-10.6) Thou/mm3 Hgb 12.6 L (13.5-16.0) g/dL Hct 36.1 L (41.0-53.0) % Plt Count 82 L D (140-440) Thou/mm3 BMP 01/15/25 01/15/25 11:29 16:37 Sodium 136 139 Potassium 5.9 H 3.6 D Chloride 95 L 99 Carbon Dioxide 19.6 L 24.7 BUN 122 H* 58 H Creatinine 13.8 H* 6.7 H* D Glucose 191 H 135 H D Calcium 8.5 8.8 Cardiac Enzymes 01/15/25 Range/Units 11:29 Troponin I 0.807 H* (0.0-0.045) ng/mL Liver Function 01/15/25 01/15/25 Range/Units 11:29 16:37 Total Bilirubin 1.1 2.1 H D (0.3-1.2) mg/dL AST 22 19 (0-34) U/L ALT 30 24 (10-49) U/L Alkaline Phosphatase 161 H 157 H (46-116) U/L Albumin 3.5 3.9 (3.5-5.0) gm/dL Urine 01/15/25 Range/Units 12:49 Urine Color Yellow (Lt Yel-Yel) Urine Clarity Hazy (Clear/Hazy) Urine pH 5.5 (5.0-7.0) Ur Specific [place] 1.022 (1.001-1.035) Urine Protein 1+ A (Neg - Trace) Urine Glucose (UA) Negative (Negative) ABG Interpretation ABG results: 01/15/25 19:57 VBG pH 7.48 VBG pCO2 27 L VBG pO2 54 VBG Base Excess -2 Quality Measures Quality Measures none Medications Home Medications and Allergies Home Medications ?Medication ?Instructions ?Recorded ?Confirmed ?Type sucroferric oxyhydroxide 500 mg 500 mg PO TID 11/03/24 11/03/24 History chewable tablet (Velphoro) vitamin B comp no.3-folic acid 1 1 tab PO .QD 11/03/24 11/03/24 History mg-vit C 60 mg-biotin 300 mcg tablet ([facility]) Allergies Allergy/AdvReac Type Severity Reaction Status Date / Time No Known Allergies Allergy Verified 01/08/25 07:32 Visit Medications Acetaminophen (Acetaminophen 325 Mg Tablet) 650 mg PO Q6H PRN PRN Reason: Fever >101.5 Stop: 02/14/25 18:18 Acetaminophen (Acetaminophen 325 Mg Tablet) 650 mg PO Q6H PRN PRN Reason: PAIN SCALE 1-3 (mild Stop: 02/14/25 18:18 Apixaban (Apixaban 2.5 Mg Tablet) 5 mg PO BID ADRIANA Stop: 02/14/25 20:59 Last Admin: 01/15/25 21:34 Dose: 5 mg Atorvastatin Calcium (Atorvastatin Calcium 20 Mg Tablet) 80 mg PO HS ADRIANA Stop: 02/14/25 20:59 Last Admin: 01/15/25 21:34 Dose: 80 mg Calcium Acetate (Calcium Acetate 667 Mg Tablet) 667 mg PO TIDWM ADRIANA Stop: 02/15/25 07:59 Heparin Sodium (Porcine) (Heparin Sod Inj 1000 Unit/Ml Vial 10 Ml) 3,300 unit INDWELLCAT PRN PRN PRN Reason: DIALYSIS Stop: 01/29/25 16:06 Last Admin: 01/15/25 17:22 Dose: 3,300 unit Albumin Human (Albuminar-25 Ivpb) 25 gm in 100 mls @ 100 mls/min IV PRN PRN PRN Reason: DIALYSIS Last Admin: 01/15/25 16:00 Dose: 100 mls/min Piperacillin/Tazobactam/Dextrose (Zosyn) 3.375 gm in 50 mls @ 12.5 mls/hr IV Q12HR ADRIANA Stop: 01/22/25 20:59 Last Admin: 01/15/25 21:34 Dose: 12.5 mls/hr Ondansetron HCl (Ondansetron Inj 2 Mg/Ml Inj 2 Ml) 4 mg IVP Q6H PRN; Protocol PRN Reason: NAUSEA OR VOMITING Stop: 02/14/25 18:18 Vitamin B Complex/Vit C/Folic Acid (Vit B12/Vit C/Fa (Nephrovite) Tablet) 1 tab PO QDAY ADRIANA Stop: 02/15/25 08:59 Discontinued Medications Heparin Sodium (Porcine) (Heparin Sod Inj 5000 Unit/Ml Vial) 5,000 unit SC Q12HR ADRIANA Stop: 01/29/25 18:29 Last Admin: 01/15/25 21:47 Dose: Not Given Vancomycin/Sodium Chloride (Vancomycin/Ns 1 Gm Ivpb) 200 mls @ 120 mls/hr IV X1 ONE Stop: 01/15/25 14:12 Last Infusion: 01/15/25 19:34 Dose: Infused Piperacillin Sod/Tazobactam (Sod 2.25 gm/ Sodium Chloride) 50 mls @ 100 mls/hr IV X1 ONE Stop: 01/15/25 13:14 Last Infusion: 01/15/25 14:01 Dose: Infused Assessment & Plan Plan Assessment: 59 year old male with history of hypertension, diabetes, hyperlipidemia, ESRD and acute onset altered mental status today. Patient being worked up for stroke. #Acute Encephalopathy #CVA rule out DDx: Uremic encephalophaty vs stroke vs electrolyte derrangements vs Thyroid abnormalities In the ED, his BUN was 122, Cr was 13.8, and eGFR was 4. Patient missed several HD appts. Teleneuro assessed patient and noted NIHSS score of 18. CT head was negative for acute hemorrhage, mass effect or midline shift. CTA showed no critical vertebral artery stenoses in the neck. There was 60% stenosis intracranial left vertebral artery and 50% stenosis on the right internal carotid artery 60% stenosis on the left internal carotid artery. Plan Neurology consulted - defer to rec Nephrology consulted - defer to rec F/U on electrolytes - Mg, Phos, K, Ca, Urea, Ammonia MR stroke protocol brain w/o contrast with MRA head and neck ECHO Doppler ordered - Follow TSH ordered - follow #Paroxysmal A-fib, rate controlled [id number]: 4 HAS-BLED:3 Plan: -Eliquis 5 mg BID -Keep Mag > 1.8 and K > 3.6 due to hx of ESRD -Cardiac Stratification #Reactive Leukocytosis WBC 31.8. No fever. Unknown source Plan Blood and Urine Cx ordered - follow result Vancomycin 1g IV x1 and Zosyn IV (started today) #ESRD on HD M/W/F #Uremia Patient is well known to Dr. Garcia. BUN, Cr, and eGFR were 122, 13.8, and 4 respectively, suggesting the patient was not able to attend one or more of his HD sessions. This was later confirmed by his son who stated that he missed several sessions last week. Increased BUN may explain the altered mental status due to uremic encephalopathy. - Restart HD M/W/ schedule, starting 01/15/2025 - Certain lab values such as potassium will be low until 3-4 hrs post HD session - Continue to monitor renal function - Nephrology will continue to follow #T2DM A1c ordered pending med reconciliation #HTN pending med reconciliation #Hyperlipidemia -Atorvastatin 80mg Health Maintenance: Diet: NPO GI prophylaxis: none at this time DVT prophylaxis: Heparin Antibiotics: Vancomycin and Zosyn CODE STATUS: DNR Disposition: Tele Case discussed with my attending Dr. Alejo, and senior resident, Dr. Raz Romero MD PGY-1 Attending Provider Attestation/Addendum I attest that I was physically present for the evaluation, physical examination, lab and imaging review of the patient with the residents. I discussed the case with the residents and agree with the findings and plans of care as documented above. After examination of the patient and review of the clinical data I feel that this patient needs admission to the hospital for further treatment/evaluation. Ally Alejo MD
[2025-01-16] VITALS (22 sets, daily range): BP systolic 85–132; BP diastolic 52–88; PULSE 62–108; RESP 18–25; TEMP 36.1–36.9; O2SAT 93–99; BMI 29.7
--- NOTE | 2025-01-16 | XR_ITS ---
Examinations: MRI Brain without intravenous contrast. 3-D vascular reconstructions Date and time of exam: January 16, 2025 0834 hours Indication: Altered mental status beginning January 15, 2025 Technique: Multiple axial and sagittal images of the brain have been obtained MRA brain carotid images without contrast obtained, including 3-D postprocessing, vascular maximum intensity projection images Findings: Sell[place] is not enlarged. The optic chiasm and infundibular stalk are not remarkable. Prepontine and interpeduncular cisterns are not enlarged. No localized enlargement of the medulla or huber. Fourth ventricle and cerebellar tonsils normal in position. Subacute hemorrhage is not seen. Fourth ventricle is midline. Mass in the cerebellopontine angle region is not evident. 7th and 8th nerve complexes exhibits symmetry. Globes are symmetrical with no retro-orbital mass. Increased white matter signal not seen Diffusion-weighted images demonstrate no focus of restricted diffusion Mass-effect upon the ventricular system is not identified. Impression: Negative for acute hemorrhage mass effect or midline shift No acute infarct
--- NOTE | 2025-01-16 00:40 | PC.NURSE ---
Spoke c pt's son, Jakob, to obtain pt's medical history and information for admission. POC discussed upon receiving approval from pt. Due to patient and family member unaware of current medications pt is on, informed son to bring in all of the pt's prescription bottles at home and provide them to the nurse overseeing the pt's care.
[2025-01-16] MEDS: HYDROmorphone INJ 2 MG/ML VIAL 0.25 MG IVP (02:03)
[2025-01-16 06:02] LABS: Basophils # (Auto) 0.1 Thou/mm3 (0.0-0.2); Basophils % (Auto) 0 % (0-2.5); Eosinophils # (Auto) 0.0 Thou/mm3 (0.0-0.5); Eosinophils % (Auto) 0 % (0-10); Hematocrit 29.3 % (41.0-53.0); Hemoglobin 10.0 g/dL (13.5-16.0); Immature Granulocytes Auto 0.99 Thou/mm3 (0.00-0.00); Lymphocytes # (Auto) 0.7 Thou/mm3 (1.0-4.8); Lymphocytes % (Auto) 3 % (10-50); Mean Corpuscular HGB Conc 34.1 g/dl (31.0-37.0); Mean Corpuscular Hemoglobin 29.5 pg (25.0-35.0); Mean Corpuscular Volume 86 fL (80-100); Monocytes # (Auto) 2.0 Thou/mm3 (0.0-0.8); Monocytes % (Auto) 7 % (0-12); Neutrophils # (Auto) 25.8 Thou/mm3 (1.8-7.7); Neutrophils % (Auto) 87 % (37-80); Nucleated Red Blood Cell # 0.02 Thou/mm3 (0.00-0.00); Nucleated Red Blood Cell % 0 /100 WBC (0); RDW Standard Deviation 60.2 fL (35.1-43.9); Red Blood Count 3.39 Miln/mm3 (4.50-5.90); White Blood Count 29.6 Thou/mm3 (3.8-10.6)
[2025-01-16 06:05] LABS: Platelet Count 69 Thou/mm3 (140-440); Slide Review Platelets confirmed
[2025-01-16 06:15] LABS: Glucose Estimated Average 128 mg/dL (80-131); Hemoglobin A1C 6.1 % Hgb (4.8-6.0)
[2025-01-16 06:18] LABS: INR 1.1 (0.9-1.3); Partial Thromboplastin Time 33.3 Seconds (22.0-36.0); Prothrombin Time 12.1 Seconds (9.0-12.2)
[2025-01-16 06:30] LABS: Alanine Aminotransferase 20 U/L (10-49); Albumin, Serum 3.2 gm/dL (3.5-5.0); Albumin/Globulin Ratio 1.0 (1.2-2.2); Alkaline Phosphatase 150 U/L (46-116); Anion Gap 17 (7-16); Aspartate Amino Transferase 16 U/L (0-34); BUN/Creatinine Ratio 8 Ratio (12-20); Bilirubin,Total 2.3 mg/dL (0.3-1.2); Blood Urea Nitrogen 68 mg/dL (9-23); Calcium 8.7 mg/dL (8.3-10.6); Calcium (Corrected) 9.3 mg/dL (8.5-10.1); Carbon Dioxide 22.9 mMol/L (20.0-31.0); Chloride 97 mMol/L (98-107); Creatinine (Component) 8.8 mg/dL (0.6-1.3); Estimated Creatinine Clearance 8.4 mL/min (>60); Globulin 3.1 gm/dL (2.3-3.5); Glucose 173 mg/dL (74-106); Magnesium 2.5 mg/dL (1.6-2.6); Osmolality,Calculated 297 (275-295); Potassium 4.8 mMol/L (3.4-5.1); Sodium 137 mMol/L (136-145); Thyroid Stimulating Hormone 0.81 uIU/mL (0.55-4.78); Total Protein 6.3 gm/dL (5.7-8.2); eGFR 6 See Note
[2025-01-16 06:47] LABS: Phosphorous 11.8 mg/dL (2.4-5.1)
[2025-01-16 07:51] LABS: Troponin I 0.689 ng/mL (0.0-0.045)
--- NOTE | 2025-01-16 07:55 | XR_ITS ---
Examination: Abdomen sonogram, complete Date and time of exam: January 16, 2025 1227 hours INDICATIONS: Elevated bilirubin on laboratory examination today. Technique: Multiple real-time grayscale transabdominal sonographic images of the abdomen have been obtained. Findings: Multiple gallstones Gallbladder wall 0.35 cm no edema Common bile duct 0.4 cm Pancreas obscured by bowel gas Proximal aorta visualized not enlarged Liver 17.7 cm no focal liver lesions Normal hepatopedal portal venous flow Patent IVC Right kidney 9.8 cm multiple cysts the largest in the lower pole 3.1 cm Left kidney 11.0 cm renal cortex 1.2 cm Multiple cysts, the largest 2.9 cm Moderate renal parenchymal scar formation Spleen 12.3 cm IMPRESSION: Cholelithiasis, negative for cholecystitis
--- NOTE | 2025-01-16 08:00 | XR_ITS ---
Examination: Carotid arterial duplex scan, ultrasound. Date and time of exam: January 18, 2025 1210 hours INDICATIONS: 60% stenosis intracranial left vertebral artery on CT angiogram January 15, 2025 Technique: Multiple sonographic images have been obtained of the carotid arteries and vertebral arteries, B-mode/grayscale imaging and Doppler spectral analysis and color flow Peak systolic and diastolic velocities have been recorded. Systolic diastolic ratios have been calculated. Findings: Right peak systolic velocities: Distal internal carotid artery peak systolic velocity is 1.1 M/sec Proximal internal carotid artery peak systolic velocity is 0.8 M/sec Carotid bifurcation peak systolic velocity is 0.8 M/sec External carotid artery peak systolic velocity is 0.7 M/sec Vertebral artery flow not visualized Left peak systolic velocities: Distal internal carotid artery peak systolic velocity is 0.9 M/sec Proximal internal carotid artery peak systolic velocity is 1.0 M/sec Carotid bifurcation peak systolic velocity is 0.9 M/sec External carotid artery peak systolic velocity is 1.6 M/sec Vertebral artery flow is antegrade Doppler waveform analysis demonstrates no spectral broadening Impression: Right internal carotid artery demonstrates 10-30% stenosis. Left internal carotid artery demonstrates 0-10% stenosis. No right vertebral artery flow is depicted
--- NOTE | 2025-01-16 09:38 | PD.RESPRO ---
Documentation for date of: 01/16/25 Exam Vital Signs Temp Pulse Resp BP Pulse Ox O2 Del Method O2 Flow Rate 97.8 F 89 18 119/60 99 Nasal Cannula 2 01/16/25 04:00 01/16/25 04:00 01/16/25 04:00 01/16/25 04:00 01/16/25 04:00 01/15/25 22:54 01/15/25 22:54 Objective Labs 01/16/25 05:01 01/16/25 05:01 Labs: Laboratory Results - last 24 hr 01/15/25 01/15/25 01/15/25 11:29 12:49 14:50 WBC 31.8 H RBC 4.35 L Hgb 12.6 L Hct 36.1 L MCV 83 MCH 29.0 MCHC 34.9 RDW Std Deviation 57.9 H Plt Count 82 L D Neut % (Auto) 89 H Lymph % (Auto) 2 L Cole % (Auto) 5 Eos % (Auto) 0 Baso % (Auto) 0 Neut # (Auto) 28.2 H Lymph # (Auto) 0.6 L Cole # (Auto) 1.7 H Eos # (Auto) 0.0 Baso # (Auto) 0.1 Immature Gran # (Auto) 1.18 H Absolute Nucleated RBC 0.03 H Immature Gran % 4 H Nucleated RBC % 0 PT 10.9 INR 1.0 APTT 23.9 VBG pH VBG pCO2 VBG pO2 VBG O2 Sat (Tony) VBG Base Excess Sodium 136 Potassium 5.9 H Chloride 95 L Carbon Dioxide 19.6 L Anion Gap 21 H BUN 122 H* Creatinine 13.8 H* Estim Creat Clear Calc 5.3 L eGFR 4 L* BUN/Creatinine Ratio 9 L Glucose [address] Glu mg/dL Hemoglobin A1c Calculated Osmolality 315 H Lactic Acid 1.7 Calcium 8.5 Corrected Calcium 8.9 Phosphorus Magnesium 2.7 H Total Bilirubin 1.1 AST 22 ALT 30 Alkaline Phosphatase 161 H Ammonia Troponin I 0.807 H* B-Natriuretic Peptide 506 H* Total Protein 7.4 Albumin 3.5 Globulin 3.9 H Albumin/Globulin Ratio 0.9 L Triglycerides Cholesterol LDL Cholesterol, Calc HDL Cholesterol Cholesterol/HDL Ratio Lipase 45 Vitamin B12 1497 H Folate 7.20 Procalcitonin 35.25 H TSH Ur Collection Type Clean Catch Urine Color Yellow Urine Clarity Hazy Urine pH 5.5 Ur Specific [place] 1.022 Urine Protein 1+ A Urine Glucose (UA) Negative Urine Ketones Negative Urine Blood 1+ A Urine Nitrite Negative Urine Bilirubin Negative Urine Urobilinogen (Auto) Negative Ur Leukocyte Esterase Positive Urine RBC 5 H Urine WBC 217 H Ur Squamous Epith Cells < 1 Urine Bacteria 1+ A Misc Test Result 01/15/25 01/15/25 01/16/25 16:37 19:57 05:01 WBC 29.6 H RBC 3.39 L Hgb 10.0 L D Hct 29.3 L MCV 86 MCH 29.5 MCHC 34.1 RDW Std Deviation 60.2 H Plt Count 69 L Neut % (Auto) 87 H Lymph % (Auto) 3 L Cole % (Auto) 7 Eos % (Auto) 0 Baso % (Auto) 0 Neut # (Auto) 25.8 H Lymph # (Auto) 0.7 L Cole # (Auto) 2.0 H Eos # (Auto) 0.0 Baso # (Auto) 0.1 Immature Gran # (Auto) 0.99 H Absolute Nucleated RBC 0.02 H Immature Gran % 3 H Nucleated RBC % 0 PT 12.1 INR 1.1 APTT 33.3 VBG pH 7.48 VBG pCO2 27 L VBG pO2 54 VBG O2 Sat (Tony) 88 L VBG Base Excess -2 Sodium 139 137 Potassium 3.6 D 4.8 D Chloride 99 97 L Carbon Dioxide 24.7 22.9 Anion Gap 15 17 H BUN 58 H 68 H Creatinine 6.7 H* D 8.8 H* D Estim Creat Clear Calc 10.8 L 8.4 L eGFR 9 L* 6 L* BUN/Creatinine Ratio 9 L 8 L Glucose 135 H D [address] Glu mg/dL 128 Hemoglobin A1c 6.1 H Calculated Osmolality 295 297 H Lactic Acid 1.8 Calcium 8.8 8.7 Corrected Calcium 8.9 9.3 Phosphorus 7.2 H 11.8 H Magnesium 2.3 2.5 Total Bilirubin 2.1 H D 2.3 H AST 19 16 ALT 24 20 Alkaline Phosphatase 157 H 150 H Ammonia 23 Troponin I 0.689 H* B-Natriuretic Peptide Total Protein 7.3 6.3 Albumin 3.9 3.2 L D Globulin 3.4 3.1 Albumin/Globulin Ratio 1.1 L 1.0 L Triglycerides 310 H Cholesterol 150 LDL Cholesterol, Calc 83 HDL Cholesterol < 5 L Cholesterol/HDL Ratio 30.0 H Lipase Vitamin B12 Folate Procalcitonin TSH 0.81 Ur Collection Type Urine Color Urine Clarity Urine pH Ur Specific [place] Urine Protein Urine Glucose (UA) Urine Ketones Urine Blood Urine Nitrite Urine Bilirubin Urine Urobilinogen (Auto) Ur Leukocyte Esterase Urine RBC Urine WBC Ur Squamous Epith Cells Urine Bacteria Misc Test Result Platelets confirmed ABG Interpretation ABG results: 01/15/25 19:57 VBG pH 7.48 VBG pCO2 27 L VBG pO2 54 VBG Base Excess -2 Quality Measures Quality Measures none Assessment & Plan Assessment Current Active Medications: Generic Name Dose Route Start Last Admin Trade Name Freq PRN Reason Stop Dose Admin Acetaminophen 650 mg 01/15/25 18:19 Acetaminophen 325 Mg Tablet PO 02/14/25 18:18 Q6H PRN Fever >101.5 Acetaminophen 650 mg 01/15/25 18:19 Acetaminophen 325 Mg Tablet PO 02/14/25 18:18 Q6H PRN PAIN SCALE 1-3 (mild Hydrocodone Bitart/Acetaminophen 1 tab 01/16/25 07:55 Hydrocodone/Apap 5/325 Tablet PO 01/21/25 07:54 Q6HR PRN PAIN SCALE 4-6 (Moderate Apixaban 5 mg 01/15/25 21:00 01/15/25 21:34 Apixaban 2.5 Mg Tablet PO 02/14/25 20:59 5 mg BID ADRIANA Administration Atorvastatin Calcium 80 mg 01/15/25 21:00 01/15/25 21:34 Atorvastatin Calcium 20 Mg Tablet PO 02/14/25 20:59 80 mg HS ADRIANA Administration Calcium Acetate 667 mg 01/16/25 08:00 Calcium Acetate 667 Mg Tablet PO 02/15/25 07:59 TIDWM ADRIANA Dextrose 25 ml 01/15/25 23:44 Dextrose 50%-Water Inj 50 Ml Syringe IV 02/14/25 23:43 Q15MIN PRN BG 50-70 responsive npo pt Dextrose 50 ml 01/15/25 23:44 Dextrose 50%-Water Inj 50 Ml Syringe IV 02/14/25 23:43 Q15MIN PRN BG <50 OR BG <70 & pt unresponsive Glucagon 1 mg 01/15/25 23:44 Glucagon Inj 1 Mg Vial IM Q15MIN PRN BG <70, and no IV access Heparin Sodium (Porcine) 3,300 unit 01/15/25 16:07 01/15/25 17:22 Heparin Sod Inj 1000 Unit/Ml Vial 10 Ml INDWELLCAT 01/29/25 16:06 3,300 unit PRN PRN Administration DIALYSIS Hydromorphone HCl 0.25 mg 01/16/25 01:54 01/16/25 02:03 Hydromorphone Inj 2 Mg/Ml Vial IVP 01/21/25 01:53 0.25 mg Q4HR PRN Administration Pain 7-10 Albumin Human 25 gm in 100 mls @ 100 mls/min 01/15/25 13:23 01/15/25 16:00 Albuminar-25 Ivpb IV 100 mls/min PRN PRN Administration DIALYSIS Piperacillin/Tazobactam/Dextrose 3.375 gm in 50 mls @ 12.5 mls/hr 01/16/25 09:00 Zosyn IV 01/23/25 08:59 Q12HR [facility] Insulin Human Lispro 0 unit 01/16/25 07:30 01/16/25 08:08 Insulin Lispro (Admelog) 1 Unit/0.01 Ml Unit SC 02/15/25 07:29 Not Given AC [facility] Protocol Ondansetron HCl 4 mg 01/15/25 18:19 Ondansetron Inj 2 Mg/Ml Inj 2 Ml IVP 02/14/25 18:18 Q6H PRN NAUSEA OR VOMITING Protocol Vitamin B Complex/Vit C/Folic Acid 1 tab 01/16/25 09:00 Vit B12/Vit C/Fa (Nephrovite) Tablet PO 02/15/25 08:59 QDAY [facility]
[2025-01-16] MEDS: VIT B12/Vit C/FA (Nephrovite) TABLET 1 TAB PO (09:54)
[2025-01-16] MEDS: APIXABAN 2.5 MG TABLET 5 MG PO ×2 (09:54→21:10)
[2025-01-16] MEDS: CALCIUM ACETATE 667 MG TABLET PO (09:54)
--- NOTE | 2025-01-16 10:02 | ESPR_ITS ---
<Statement entered by Virgilio Crandall MD - 01/16/25 18:19> I have reviewed the note and agree with the resident's assessment & plan with exceptions as below. I have personally reviewed labs, imaging, home meds/prior records, examined the patient, formulated and discussed management plan with the IM team. Patient continues to improve. Carotid Doppler shows right no vertebral flow, and minimal stenoses in carotid arteries bilaterally. MRI brain was negative for acute stroke. Patient to get additional hemodialysis session with the right TDC ordered by nephrology. Calcium acetate increased to 2 g 3 times daily with meals due to elevation of phosphorus levels. Patient was found to have GNR bacteremia, started on Zosyn 4.5 g every 12 hours (renally dosed). Will follow- up with blood cultures and will repeat blood cultures. Will order additional imaging studies including thoracic and cervical x-rays as patient continues to be weak and history of recent fall, and will follow-up with physical therapy recommendations. Will follow-up with neurology recommendations. Previous possible renal mass seen on CT scan was ruled out with renal ultrasound which showed multiple bilateral renal cysts, however patient denies history of autosomal polycystic kidney disease. Patient does have history of paroxysmal atrial fibrillation on Eliquis at this time. Repeat hematology and chemistry in AM. Virgilio Crandall, PGY-2 Internal Medicine Documentation for date of: 01/16/25 Subjective Subjective Interval history: Patient seen today. No overnight events. No new complaints from patient. States is more alert than yesterday. Able to move right arm but not other limbs. No swallowing difficulties. No speech slur. No dizziness, lightheadness, nausea, vomiting, vidual disturbance. No chest pain, sob, abdominal pain, no fever. Exam Vital Signs Temp Pulse Resp BP Pulse Ox O2 Del Method O2 Flow Rate 97.0 F 92 18 123/67 97 Nasal Cannula 3 01/16/25 08:00 01/16/25 08:00 01/16/25 08:00 01/16/25 08:00 01/16/25 08:00 01/16/25 08:00 01/16/25 08:00 Narrative Exam GENERAL APPEARANCE: alert, does not appear to be confused, well-developed, well- nourished, no acute distress, R tunneled dialysis catheter present HEENT: Normocephalic, atraumatic; pupils equal, round, reactive to light; EOMI; mucous membranes pink, moist; oropharynx clear NECK: Supple LUNGS: CTABL; no wheezes, no rales, no rhonchi HEART: Regular rate, regular rhythm; normal S1, S2; no murmurs ABDOMEN: mildly distended; normal BS; soft, no tenderness, no guarding, no rebound; no masses, no organomegaly, no hernia BACK: no CVA tenderness EXTREMITIES: atraumatic; no edema NEUROLOGIC: awake; A&O X3; no facial droop, able to move move right arm slightly but not left arm or bilat legs PSYCHIATRIC: appropriate mood and affect SKIN: warm, dry, normal color; no rashes Objective Labs 01/16/25 05:01 01/16/25 05:01 Labs: Laboratory Results - last 24 hr 01/15/25 01/15/25 01/15/25 11:29 12:49 14:50 WBC 31.8 H RBC 4.35 L Hgb 12.6 L Hct 36.1 L MCV 83 MCH 29.0 MCHC 34.9 RDW Std Deviation 57.9 H Plt Count 82 L D Neut % (Auto) 89 H Lymph % (Auto) 2 L Rooks % (Auto) 5 Eos % (Auto) 0 Baso % (Auto) 0 Neut # (Auto) 28.2 H Lymph # (Auto) 0.6 L Rooks # (Auto) 1.7 H Eos # (Auto) 0.0 Baso # (Auto) 0.1 Immature Gran # (Auto) 1.18 H Absolute Nucleated RBC 0.03 H Immature Gran % 4 H Nucleated RBC % 0 PT 10.9 INR 1.0 APTT 23.9 VBG pH VBG pCO2 VBG pO2 VBG O2 Sat (Tony) VBG Base Excess Sodium 136 Potassium 5.9 H Chloride 95 L Carbon Dioxide 19.6 L Anion Gap 21 H BUN 122 H* Creatinine 13.8 H* Estim Creat Clear Calc 5.3 L eGFR 4 L* BUN/Creatinine Ratio 9 L Glucose [address] Glu mg/dL Hemoglobin A1c Calculated Osmolality 315 H Lactic Acid 1.7 Calcium 8.5 Corrected Calcium 8.9 Phosphorus Magnesium 2.7 H Total Bilirubin 1.1 AST 22 ALT 30 Alkaline Phosphatase 161 H Ammonia Troponin I 0.807 H* B-Natriuretic Peptide 506 H* Total Protein 7.4 Albumin 3.5 Globulin 3.9 H Albumin/Globulin Ratio 0.9 L Triglycerides Cholesterol LDL Cholesterol, Calc HDL Cholesterol Cholesterol/HDL Ratio Lipase 45 Vitamin B12 1497 H Folate 7.20 Procalcitonin 35.25 H TSH Ur Collection Type Clean Catch Urine Color Yellow Urine Clarity Hazy Urine pH 5.5 Ur Specific [place] 1.022 Urine Protein 1+ A Urine Glucose (UA) Negative Urine Ketones Negative Urine Blood 1+ A Urine Nitrite Negative Urine Bilirubin Negative Urine Urobilinogen (Auto) Negative Ur Leukocyte Esterase Positive Urine RBC 5 H Urine WBC 217 H Ur Squamous Epith Cells < 1 Urine Bacteria 1+ A Misc Test Result 01/15/25 01/15/25 01/16/25 16:37 19:57 05:01 WBC 29.6 H RBC 3.39 L Hgb 10.0 L D Hct 29.3 L MCV 86 MCH 29.5 MCHC 34.1 RDW Std Deviation 60.2 H Plt Count 69 L Neut % (Auto) 87 H Lymph % (Auto) 3 L Rooks % (Auto) 7 Eos % (Auto) 0 Baso % (Auto) 0 Neut # (Auto) 25.8 H Lymph # (Auto) 0.7 L Rooks # (Auto) 2.0 H Eos # (Auto) 0.0 Baso # (Auto) 0.1 Immature Gran # (Auto) 0.99 H Absolute Nucleated RBC 0.02 H Immature Gran % 3 H Nucleated RBC % 0 PT 12.1 INR 1.1 APTT 33.3 VBG pH 7.48 VBG pCO2 27 L VBG pO2 54 VBG O2 Sat (Tony) 88 L VBG Base Excess -2 Sodium 139 137 Potassium 3.6 D 4.8 D Chloride 99 97 L Carbon Dioxide 24.7 22.9 Anion Gap 15 17 H BUN 58 H 68 H Creatinine 6.7 H* D 8.8 H* D Estim Creat Clear Calc 10.8 L 8.4 L eGFR 9 L* 6 L* BUN/Creatinine Ratio 9 L 8 L Glucose 135 H D [address] Glu mg/dL 128 Hemoglobin A1c 6.1 H Calculated Osmolality 295 297 H Lactic Acid 1.8 Calcium 8.8 8.7 Corrected Calcium 8.9 9.3 Phosphorus 7.2 H 11.8 H Magnesium 2.3 2.5 Total Bilirubin 2.1 H D 2.3 H AST 19 16 ALT 24 20 Alkaline Phosphatase 157 H 150 H Ammonia 23 Troponin I 0.689 H* B-Natriuretic Peptide Total Protein 7.3 6.3 Albumin 3.9 3.2 L D Globulin 3.4 3.1 Albumin/Globulin Ratio 1.1 L 1.0 L Triglycerides 310 H Cholesterol 150 LDL Cholesterol, Calc 83 HDL Cholesterol < 5 L Cholesterol/HDL Ratio 30.0 H Lipase Vitamin B12 Folate Procalcitonin TSH 0.81 Ur Collection Type Urine Color Urine Clarity Urine pH Ur Specific [place] Urine Protein Urine Glucose (UA) Urine Ketones Urine Blood Urine Nitrite Urine Bilirubin Urine Urobilinogen (Auto) Ur Leukocyte Esterase Urine RBC Urine WBC Ur Squamous Epith Cells Urine Bacteria Misc Test Result Platelets confirmed ABG Interpretation ABG results: 01/15/25 19:57 VBG pH 7.48 VBG pCO2 27 L VBG pO2 54 VBG Base Excess -2 Quality Measures Quality Measures none Assessment & Plan Assessment Current Active Medications: Generic Name Dose Route Start Last Admin Trade Name Freq PRN Reason Stop Dose Admin Acetaminophen 650 mg 01/15/25 18:19 Acetaminophen 325 Mg Tablet PO 02/14/25 18:18 Q6H PRN Fever >101.5 Acetaminophen 650 mg 01/15/25 18:19 Acetaminophen 325 Mg Tablet PO 02/14/25 18:18 Q6H PRN PAIN SCALE 1-3 (mild Hydrocodone Bitart/Acetaminophen 1 tab 01/16/25 07:55 Hydrocodone/Apap 5/325 Tablet PO 01/21/25 07:54 Q6HR PRN PAIN SCALE 4-6 (Moderate Apixaban 5 mg 01/15/25 21:00 01/16/25 09:54 Apixaban 2.5 Mg Tablet PO 02/14/25 20:59 5 mg BID ADRIANA Administration Atorvastatin Calcium 80 mg 01/15/25 21:00 01/15/25 21:34 Atorvastatin Calcium 20 Mg Tablet PO 02/14/25 20:59 80 mg HS ADRIANA Administration Calcium Acetate 667 mg 01/16/25 08:00 01/16/25 09:54 Calcium Acetate 667 Mg Tablet PO 02/15/25 07:59 667 mg TIDWM ADRIANA Administration Dextrose 25 ml 01/15/25 23:44 Dextrose 50%-Water Inj 50 Ml Syringe IV 02/14/25 23:43 Q15MIN PRN BG 50-70 responsive npo pt Dextrose 50 ml 01/15/25 23:44 Dextrose 50%-Water Inj 50 Ml Syringe IV 02/14/25 23:43 Q15MIN PRN BG <50 OR BG <70 & pt unresponsive Glucagon 1 mg 01/15/25 23:44 Glucagon Inj 1 Mg Vial IM Q15MIN PRN BG <70, and no IV access Heparin Sodium (Porcine) 3,300 unit 01/15/25 16:07 01/15/25 17:22 Heparin Sod Inj 1000 Unit/Ml Vial 10 Ml INDWELLCAT 01/29/25 16:06 3,300 unit PRN PRN Administration DIALYSIS Hydromorphone HCl 0.25 mg 01/16/25 01:54 01/16/25 02:03 Hydromorphone Inj 2 Mg/Ml Vial IVP 01/21/25 01:53 0.25 mg Q4HR PRN Administration Pain 7-10 Albumin Human 25 gm in 100 mls @ 100 mls/min 01/15/25 13:23 01/15/25 16:00 Albuminar-25 Ivpb IV 100 mls/min PRN PRN Administration DIALYSIS Piperacillin/Tazobactam/Dextrose 3.375 gm in 50 mls @ 12.5 mls/hr 01/16/25 09:00 Zosyn IV 01/23/25 08:59 Q12HR [facility] Insulin Human Lispro 0 unit 01/16/25 07:30 01/16/25 08:08 Insulin Lispro (Admelog) 1 Unit/0.01 Ml Unit SC 02/15/25 07:29 Not Given AC [facility] Protocol Ondansetron HCl 4 mg 01/15/25 18:19 Ondansetron Inj 2 Mg/Ml Inj 2 Ml IVP 02/14/25 18:18 Q6H PRN NAUSEA OR VOMITING Protocol Vitamin B Complex/Vit C/Folic Acid 1 tab 01/16/25 09:00 01/16/25 09:54 Vit B12/Vit C/Fa (Nephrovite) Tablet PO 02/15/25 08:59 1 tab QDAY [facility] Administration Plan Assessment: 59 year old male with history of hypertension, diabetes, hyperlipidemia, ESRD admitted for acute encepahlopathy. Patient being worked up for stroke. #Acute Encephalopathy #CVA - ruled out DDX: toxic/metabolic (ESRD on HD, missed HD sessions), infectious (UTI), hypertensive encephalopathy (sBPs reach 190s) In the ED, BUN was 122, Cr was 13.8, and eGFR was 4. Patient missed several HD appts. Teleneuro assessed patient and noted NIHSS score of 18. CT head w/o 01/15/25: Negative for acute hemorrhage, mass effect or midline shift CTA head/neck 01/15/25: No significant neck arterial stenoses. No critical vertebral artery stenoses in the neck. 60% stenosis intracranial left vertebral artery. Attenuated basilar artery which does fill with no large vessel occlusions involving the basilar artery or posterior cerebral branches. Heavy calcification juxtasellar portions internal carotid arteries, 50% stenosis on the right 60% stenosis on the left. No middle cerebral or anterior cerebral artery large vessel occlusions CXR: Moderate vascular congestion WBC elevated, UA + UTI, serum ammonia WNL, TSH WNL Carotid dopper (01/16/25): Right internal carotid artery demonstrates 10-30% stenosis. Left internal carotid artery demonstrates 0-10% stenosis. No right vertebral artery flow is depicted Brain MRI with MRA negative (01/16/25). Negative for acute hemorrhage mass effect or midline shift. No acute infarct Plan - Following with nephrology, known to Dr. Garcia, follow recs - Pending ECHO Doppler ordered - Follow - HD session today followed by on Monday - then can go back on MWF schedule - Continue calcium acetate for management of hyperphosphatemia (Phos 11.8 07/03 AM labs) #GNR Bacteremia #UTI Blood culture (+) x2 sources on 01/15/25 UA: WBC 217, Leuk (+) on 01/15/25 Urine Cx - pending Plan Zosyn 4.5 g every 12 hours (renally dosed) F/U Urine Cx #Renal cyst - bilateral #Renal mass ruled out CT abdomen pelvis wo con Hepatosplenomegaly. Trace ascites. Tiny bilateral renal calculi. Recommend renal sonography follow-up to exclude 32 mm anterior right renal mass. Urinary bladder wall thickening, differential would include cystitis Renal US - ruled renal mass. Bilateral renal cortical thinning. Mild to moderate bilateral renal parenchymal scar formation. 5 mm left renal calculus Plan Monitor worsening clinical status (fever, new abdominal pain) #Hepatosplenomegaly #Cholelithiasis #Mild cirrhosis CT abdomen showed Liver mildly irregular in contour. Hepatomegaly 19 cm. Splenomegaly 14 cm. Cholelithiasis. Gallbladder wall appears mildly thickened. Plan Monitor worsening clinical status (fever, new abdominal pain) Patient to f/u with PCP for further w/u of cirrhosis #Diabetes mellitus type 2 Hgb A1C 6.1 (down from 6.9). Well controlled. Patient is not on diabetic meds at home, mentions diet-controlled. Glucose 173 in AM - patient does have bacteremia Plan: - Insulin SS in hospital - Consider starting metformin at discharge #Paroxysmal A-fib, rate controlled [id number]: 4 HAS-BLED:3 HR 65 Plan: - Management per primary team - Eliquis 5 mg BID #Hyperlipidemia Plan: - Continue home Atorvastatin 80mg daily Health Maintenance: Diet: renal GI prophylaxis: none at this time DVT prophylaxis: Heparin Antibiotics: Zosyn CODE STATUS: DNR Disposition: Telemetry Case discussed with my attending Dr. Alejo, and senior resident, Dr. Raz Romero MD PGY-1 Attending Provider Attestation/Addendum I attest that I was physically present for the evaluation, physical examination, lab and imaging review of the patient with the residents. I discussed the case with the residents and agree with the findings and plans of care as documented above. Ally Alejo MD
--- NOTE | 2025-01-16 10:02 | PC.SS ---
Addendum entered by Elsa Taylor 01/16/25 16:06: Follow up note: SS received a note from PT that he will need SNF. SS will send out inquiry to local facilities. Addendum entered by Elsa Taylor 01/16/25 13:00: SS spoke to patient's son, Ric, who states patient missed about a week of dialysis due to his fall and he wasn't feeling well. Patient typically drives himself. Patient is pending a PT eval. SS discussed the options of SNF vs HH with patient's son as well. Original Note: -Patient is alert/oriented. Patient was able to verify demographics. Patient was admitted for acute encephalopathy. Patient's son was present. Patient verbalized he wants his son, Ric, to be the alt medical decison maker for him. Patient thinks he wrote this on a healthcare advance directive. SS will review. Patient states he resides alone. He's been independent with ADL's. Patient is on dialysis and missed several sessions. Documentation shows he fell last week as well. Patient states he recently went to see a psychiatrist at [facility] because he thought he was hallucinating and not feeling well. Patient states he follows at the [facility] for his p.c.p. His last appt was last week. Patient states he does not use any DME at home. No 02. He drives himself to appointments. Pharmacy: [facility]. Discharge plan is pending as patient resides alone and has missed a few dialysis appointments. Patient would benefit from SNF or HH services. Alt medical decision maker: Son, Ric,
[2025-01-16] MEDS: INSULIN LISPRO (AdmeLOG) 1 UNIT/0.01 ML UNIT SC (11:34)
[2025-01-16] MEDS: CALCIUM ACETATE 667 MG TABLET 2001 MG PO (11:34)
--- NOTE | 2025-01-16 15:08 | PD.RESCONSUL ---
HPI Data of Consult Requesting Physician: Ally Alejo MD Admitting Provider: Ally Alejo MD Attending Provider: Ally Alejo MD Primary Care Provider: Physician No Primary/Family Consult Narrative cc:: cc: Ally Alejo MD Exam Vital Signs Temp Pulse Resp BP Pulse Ox O2 Del Method O2 Flow Rate 98.0 F 102 H 20 117/74 94 L Nasal Cannula 3 01/16/25 14:55 01/16/25 14:55 01/16/25 14:55 01/16/25 14:55 01/16/25 14:55 01/16/25 12:00 01/16/25 14:55 Results Labs 01/16/25 05:01 01/16/25 05:01 Labs: Short CBC 01/16/25 Range/Units 05:01 WBC 29.6 H (3.8-10.6) Thou/mm3 Hgb 10.0 L D (13.5-16.0) g/dL Hct 29.3 L (41.0-53.0) % Plt Count 69 L (140-440) Thou/mm3 BMP 01/15/25 01/16/25 16:37 05:01 Sodium 139 137 Potassium 3.6 D 4.8 D Chloride 99 97 L Carbon Dioxide 24.7 22.9 BUN 58 H 68 H Creatinine 6.7 H* D 8.8 H* D Glucose 135 H D 173 H Calcium 8.8 8.7 Cardiac Enzymes 01/16/25 Range/Units 05:01 Troponin I 0.689 H* (0.0-0.045) ng/mL Liver Function 01/15/25 01/16/25 Range/Units 16:37 05:01 Total Bilirubin 2.1 H D 2.3 H (0.3-1.2) mg/dL AST 19 16 (0-34) U/L ALT 24 20 (10-49) U/L Alkaline Phosphatase 157 H 150 H (46-116) U/L Albumin 3.9 3.2 L D (3.5-5.0) gm/dL ABG Interpretation ABG results: 01/15/25 19:57 VBG pH 7.48 VBG pCO2 27 L VBG pO2 54 VBG Base Excess -2 Quality Measures Quality Measures none Medications Home Medications and Allergies Home Medications ?Medication ?Instructions ?Recorded ?Confirmed ?Type sucroferric oxyhydroxide 500 mg 500 mg PO TID 11/03/24 11/03/24 History chewable tablet (Velphoro) vitamin B comp no.3-folic acid 1 1 tab PO .QD 11/03/24 11/03/24 History mg-vit C 60 mg-biotin 300 mcg tablet (Ileana-[facility]) Allergies Allergy/AdvReac Type Severity Reaction Status Date / Time No Known Allergies Allergy Verified 01/08/25 07:32 Visit Medications Acetaminophen (Acetaminophen 325 Mg Tablet) 650 mg PO Q6H PRN PRN Reason: Fever >101.5 Stop: 02/14/25 18:18 Acetaminophen (Acetaminophen 325 Mg Tablet) 650 mg PO Q6H PRN PRN Reason: PAIN SCALE 1-3 (mild Stop: 02/14/25 18:18 Hydrocodone Bitart/Acetaminophen (Hydrocodone/Apap 5/325 Tablet) 1 tab PO Q6HR PRN PRN Reason: PAIN SCALE 4-6 (Moderate Stop: 01/21/25 07:54 Apixaban (Apixaban 2.5 Mg Tablet) 5 mg PO BID ADRIANA Stop: 02/14/25 20:59 Last Admin: 01/16/25 09:54 Dose: 5 mg Atorvastatin Calcium (Atorvastatin Calcium 20 Mg Tablet) 80 mg PO HS ADRIANA Stop: 02/14/25 20:59 Last Admin: 01/15/25 21:34 Dose: 80 mg Calcium Acetate (Calcium Acetate 667 Mg Tablet) 2,001 mg PO TIDWM ADRIANA Stop: 02/15/25 11:59 Last Admin: 01/16/25 11:34 Dose: 2,001 mg Dextrose (Dextrose 50%-Water Inj 50 Ml Syringe) 25 ml IV Q15MIN PRN PRN Reason: BG 50-70 responsive npo pt Stop: 02/14/25 23:43 Dextrose (Dextrose 50%-Water Inj 50 Ml Syringe) 50 ml IV Q15MIN PRN PRN Reason: BG <50 OR BG <70 & pt unresponsive Stop: 02/14/25 23:43 Glucagon (Glucagon Inj 1 Mg Vial) 1 mg IM Q15MIN PRN PRN Reason: BG <70, and no IV access Heparin Sodium (Porcine) (Heparin Sod Inj 1000 Unit/Ml Vial 10 Ml) 3,300 unit INDWELLCAT PRN PRN PRN Reason: DIALYSIS Stop: 01/29/25 16:06 Last Admin: 01/15/25 17:22 Dose: 3,300 unit Hydromorphone HCl (Hydromorphone Inj 2 Mg/Ml Vial) 0.25 mg IVP Q4HR PRN PRN Reason: Pain 7-10 Stop: 01/21/25 01:53 Last Admin: 01/16/25 02:03 Dose: 0.25 mg Albumin Human (Albuminar-25 Ivpb) 25 gm in 100 mls @ 100 mls/min IV PRN PRN PRN Reason: DIALYSIS Last Admin: 01/15/25 16:00 Dose: 100 mls/min Piperacillin/Tazobactam/Dextrose (Zosyn) 3.375 gm in 50 mls @ 12.5 mls/hr IV Q12HR [facility] Stop: 01/23/25 08:59 Last Admin: 01/16/25 13:53 Dose: Not Given Insulin Human Lispro (Insulin Lispro (Admelog) 1 Unit/0.01 Ml Unit) 0 unit SC AC [facility]; Protocol Stop: 02/15/25 07:29 Last Admin: 01/16/25 11:34 Dose: 1 unit Ondansetron HCl (Ondansetron Inj 2 Mg/Ml Inj 2 Ml) 4 mg IVP Q6H PRN; Protocol PRN Reason: NAUSEA OR VOMITING Stop: 02/14/25 18:18 Vitamin B Complex/Vit C/Folic Acid (Vit B12/Vit C/Fa (Nephrovite) Tablet) 1 tab PO QDAY [facility] Stop: 02/15/25 08:59 Last Admin: 01/16/25 09:54 Dose: 1 tab Discontinued Medications Calcium Acetate (Calcium Acetate 667 Mg Tablet) 667 mg PO TIDWM ADRIANA Stop: 02/15/25 07:59 Last Admin: 01/16/25 09:54 Dose: 667 mg Heparin Sodium (Porcine) (Heparin Sod Inj 5000 Unit/Ml Vial) 5,000 unit SC Q12HR ADRIANA Stop: 01/29/25 18:29 Last Admin: 01/15/25 21:47 Dose: Not Given Vancomycin/Sodium Chloride (Vancomycin/Ns 1 Gm Ivpb) 200 mls @ 120 mls/hr IV X1 ONE Stop: 01/15/25 14:12 Last Infusion: 01/15/25 19:34 Dose: Infused Piperacillin Sod/Tazobactam (Sod 2.25 gm/ Sodium Chloride) 50 mls @ 100 mls/hr IV X1 ONE Stop: 01/15/25 13:14 Last Infusion: 01/15/25 14:01 Dose: Infused Piperacillin/Tazobactam/Dextrose (Zosyn) 3.375 gm in 50 mls @ 12.5 mls/hr IV Q12HR [facility] Stop: 01/22/25 20:59 Last Admin: 01/15/25 21:34 Dose: 12.5 mls/hr Piperacillin Sod/Tazobactam (Sod 4.5 gm/ Sodium Chloride) 100 mls @ 200 mls/hr IV Q6HR [facility] Stop: 01/23/25 07:45
--- NOTE | 2025-01-16 15:12 | ESPR_ITS ---
Documentation for date of: 01/16/25 Subjective Subjective Interval history: Overnight events: No acute events overnight. Patient was seen and examined at bedside. AM vitals and labs reviewed. BUN and Cr increased compared to reading prior to AM labs, but overall trend is decreased compared to admission. The patient had no complaints today. The patient continued to deny missing hemodialysis appointments, but relented that he may have missed an appointment last Monday after being told his son stated he had missed several last week. Review of systems otherwise negative except for what is mentioned above. Exam Vital Signs Temp Pulse Resp BP Pulse Ox O2 Del Method O2 Flow Rate 98.0 F 99 20 127/71 94 L Nasal Cannula 3 01/16/25 14:55 01/16/25 15:07 01/16/25 14:55 01/16/25 15:07 01/16/25 14:55 01/16/25 12:00 01/16/25 14:55 Narrative Exam Physical Exam: General: Alert, no acute distress. Skin: Warm, dry, intact, no obvious rash. Head: Normocephalic, atraumatic. Respiratory: Respirations unlabored, speaking easily on room air. Neuro: No focal deficits observed. Conversant, moving all extremities. No overt cerebellar signs/incoordination. Psychiatric: Cooperative, appropriate affect. Objective Labs 01/18/25 04:25 01/18/25 04:25 Labs: Laboratory Results - last 24 hr 01/15/25 01/15/25 01/15/25 14:50 16:37 19:57 WBC RBC Hgb Hct MCV MCH MCHC RDW Std Deviation Plt Count Neut % (Auto) Lymph % (Auto) [place] % (Auto) Eos % (Auto) Baso % (Auto) Neut # (Auto) Lymph # (Auto) [place] # (Auto) Eos # (Auto) Baso # (Auto) Immature Gran # (Auto) Absolute Nucleated RBC Immature Gran % Nucleated RBC % PT INR APTT VBG pH 7.48 VBG pCO2 27 L VBG pO2 54 VBG O2 Sat (Tony) 88 L VBG Base Excess -2 Sodium 139 Potassium 3.6 D Chloride 99 Carbon Dioxide 24.7 Anion Gap 15 BUN 58 H Creatinine 6.7 H* D Estim Creat Clear Calc 10.8 L eGFR 9 L* BUN/Creatinine Ratio 9 L Glucose [address] Glu mg/dL Hemoglobin A1c Calculated Osmolality 295 Lactic Acid 1.8 Calcium 8.8 Corrected Calcium 8.9 Phosphorus 7.2 H Magnesium 2.3 Total Bilirubin 2.1 H D AST 19 ALT 24 Alkaline Phosphatase 157 H Ammonia 23 Troponin I Total Protein 7.3 Albumin 3.9 Globulin 3.4 Albumin/Globulin Ratio 1.1 L Triglycerides 310 H Cholesterol 150 LDL Cholesterol, Calc 83 HDL Cholesterol < 5 L Cholesterol/HDL Ratio 30.0 H Vitamin B12 1497 H Folate 7.20 TSH Misc Test Result 01/16/25 05:01 WBC 29.6 H RBC 3.39 L Hgb 10.0 L D Hct 29.3 L MCV 86 MCH 29.5 MCHC 34.1 RDW Std Deviation 60.2 H Plt Count 69 L Neut % (Auto) 87 H Lymph % (Auto) 3 L [place] % (Auto) 7 Eos % (Auto) 0 Baso % (Auto) 0 Neut # (Auto) 25.8 H Lymph # (Auto) 0.7 L [place] # (Auto) 2.0 H Eos # (Auto) 0.0 Baso # (Auto) 0.1 Immature Gran # (Auto) 0.99 H Absolute Nucleated RBC 0.02 H Immature Gran % 3 H Nucleated RBC % 0 PT 12.1 INR 1.1 APTT 33.3 VBG pH VBG pCO2 VBG pO2 VBG O2 Sat (Tony) VBG Base Excess Sodium 137 Potassium 4.8 D Chloride 97 L Carbon Dioxide 22.9 Anion Gap 17 H BUN 68 H Creatinine 8.8 H* D Estim Creat Clear Calc 8.4 L eGFR 6 L* BUN/Creatinine Ratio 8 L Glucose [address] Glu mg/dL 128 Hemoglobin A1c 6.1 H Calculated Osmolality 297 H Lactic Acid Calcium 8.7 Corrected Calcium 9.3 Phosphorus 11.8 H Magnesium 2.5 Total Bilirubin 2.3 H AST 16 ALT 20 Alkaline Phosphatase 150 H Ammonia Troponin I 0.689 H* Total Protein 6.3 Albumin 3.2 L D Globulin 3.1 Albumin/Globulin Ratio 1.0 L Triglycerides Cholesterol LDL Cholesterol, Calc HDL Cholesterol Cholesterol/HDL Ratio Vitamin B12 Folate TSH 0.81 Misc Test Result Platelets confirmed ABG Interpretation ABG results: 01/15/25 19:57 VBG pH 7.48 VBG pCO2 27 L VBG pO2 54 VBG Base Excess -2 Quality Measures Quality Measures VTE prophylaxis Assessment & Plan Assessment Current Active Medications: Generic Name Dose Route Start Last Admin Trade Name Kasandra PRN Reason Stop Dose Admin Acetaminophen 650 mg 01/15/25 18:19 Acetaminophen 325 Mg Tablet PO 02/14/25 18:18 Q6H PRN Fever >101.5 Acetaminophen 650 mg 01/15/25 18:19 Acetaminophen 325 Mg Tablet PO 02/14/25 18:18 Q6H PRN PAIN SCALE 1-3 (mild Hydrocodone Bitart/Acetaminophen 1 tab 01/16/25 07:55 Hydrocodone/Apap 5/325 Tablet PO 01/21/25 07:54 Q6HR PRN PAIN SCALE 4-6 (Moderate Apixaban 5 mg 01/15/25 21:00 01/16/25 09:54 Apixaban 2.5 Mg Tablet PO 02/14/25 20:59 5 mg BID ADRIANA Administration Atorvastatin Calcium 80 mg 01/15/25 21:00 01/15/25 21:34 Atorvastatin Calcium 20 Mg Tablet PO 02/14/25 20:59 80 mg HS ADRIANA Administration Calcium Acetate 2,001 mg 01/16/25 12:00 01/16/25 11:34 Calcium Acetate 667 Mg Tablet PO 02/15/25 11:59 2,001 mg TIDWM ADRINAA Administration Dextrose 25 ml 01/15/25 23:44 Dextrose 50%-Water Inj 50 Ml Syringe IV 02/14/25 23:43 Q15MIN PRN BG 50-70 responsive npo pt Dextrose 50 ml 01/15/25 23:44 Dextrose 50%-Water Inj 50 Ml Syringe IV 02/14/25 23:43 Q15MIN PRN BG <50 OR BG <70 & pt unresponsive Glucagon 1 mg 01/15/25 23:44 Glucagon Inj 1 Mg Vial IM Q15MIN PRN BG <70, and no IV access Heparin Sodium (Porcine) 3,300 unit 01/15/25 16:07 01/15/25 17:22 Heparin Sod Inj 1000 Unit/Ml Vial 10 Ml INDWELLCAT 01/29/25 16:06 3,300 unit PRN PRN Administration DIALYSIS Hydromorphone HCl 0.25 mg 01/16/25 01:54 01/16/25 02:03 Hydromorphone Inj 2 Mg/Ml Vial IVP 01/21/25 01:53 0.25 mg Q4HR PRN Administration Pain 7-10 Albumin Human 25 gm in 100 mls @ 100 mls/min 01/15/25 13:23 01/15/25 16:00 Albuminar-25 Ivpb IV 100 mls/min PRN PRN Administration DIALYSIS Piperacillin/Tazobactam/Dextrose 3.375 gm in 50 mls @ 12.5 mls/hr 01/16/25 09:00 01/16/25 13:53 Zosyn IV 01/23/25 08:59 Not Given Q12HR ADRIANA Insulin Human Lispro 0 unit 01/16/25 07:30 01/16/25 11:34 Insulin Lispro (Admelog) 1 Unit/0.01 Ml Unit SC 02/15/25 07:29 1 unit AC ADRIANA Administration Protocol Ondansetron HCl 4 mg 01/15/25 18:19 Ondansetron Inj 2 Mg/Ml Inj 2 Ml IVP 02/14/25 18:18 Q6H PRN NAUSEA OR VOMITING Protocol Vitamin B Complex/Vit C/Folic Acid 1 tab 01/16/25 09:00 01/16/25 09:54 Vit B12/Vit C/Fa (Nephrovite) Tablet PO 02/15/25 08:59 1 tab QDAY ADRIANA Administration Plan Mr. Springer is a 59? year old male with a relevant medical history of ESRD on HD / followed by Dr. Garcia, HTN, T2DM, and HLD who presents with altered mental status. Nephrology was consulted for the patient's hemodialysis management. #ESRD on HD / Patient is well known to Dr. Garcia. BUN, Cr, and eGFR were 122, 13.8, and 4 respectively, suggesting the patient was not able to attend one or more of his HD sessions. This was later confirmed by his son who stated that he missed several sessions last week. Increased BUN may explain the altered mental status due to uremic encephalopathy. - Restarted HD, will plan for another HD session today, followed by a session on Monday, and then Monday so that the patient can return to their [facility] HD schedule - Continue calcium acetate for management of hyperphosphatemia (Phos 11.8 07/03 AM labs) - Continue to monitor renal function - Nephrology will continue to follow Patient was discussed with the Nephrology attending, Dr. Garcia. Thank you for allowing us to participate in the care of this patient. Bebeto Pino, PGY-1 Attending Provider Attestation/Addendum Pt is seen and examined. labs and investigations are reviewed. Agree with assessment and plan and findings by resident. Pastor Garcia MD
[2025-01-16] MEDS: ALBUMIN HUMAN 25% IVPB 25 GM/100 ML BTL IV (16:08)
--- NOTE | 2025-01-16 16:12 | PC.NURSE ---
BP LOW PT DENIES ALL S/S OF HYPOTENSION WILL ADMIN PRN ALBUMIN 25/100ML PER MD ORDERS AND CONT. TO MONITOR
--- NOTE | 2025-01-16 16:47 | PC.NURSE ---
BP CONT'S. TO TREND DOWN, PT DENIES ALL S/S OF HYPOTENSION. UF GOAL LOWERED TO 0.6L TOLERATED. WILL CONT. TO MONITOR
--- NOTE | 2025-01-16 17:05 | PC.NURSE ---
BP STABLE, PT ASYMPTOMATIC, UF GOAL INCREASED TO 0.7L TOLERATED, WILL CONT. TO MONITOR
--- NOTE | 2025-01-16 17:16 | PC.LAC ---
BP TRENDING UP UF GOAL INCREASED TO 0.9L TOLERATED, WILL CONT. TO MONITOR
--- NOTE | 2025-01-16 17:32 | PC.NURSE ---
BP TRENDING DOWN, PT REMAINS ASYMPTOMATIC, UF GOAL LOWERED TO 0.8L TOLERATED, WILL CONT. TO MONITOR
[2025-01-16] MEDS: HEPARIN SOD INJ 1000 UNIT/ML VIAL 10 ML 3300 UNIT INDWELLCAT (18:06)
--- NOTE | 2025-01-16 18:16 | XR_ITS ---
Examination cervical spine 3 views TECHNIQUE: AP lateral coned AP odontoid cervical spine 3 views Date and time: January 16, 2025 1900 hours INDICATIONS: Patient fell today within the neck, neck pain FINDINGS: Nondiagnostic study The lateral film only includes the first 4 cervical vertebral bodies The odontoid does appear intact IMPRESSION: Nondiagnostic study Consider CT scan cervical spine without contrast followed
--- NOTE | 2025-01-16 18:16 | XR_ITS ---
Examination: Thoracic spine 2 views Technique were Thoracic spine 2 views Date and time: January 16, 2025 at 1852 hours INDICATIONS: Patient fell off a ladder yesterday with injury to the back, back pain. FINDINGS: No acute thoracic fracture noted The upper thoracic vertebral bodies are not diagnostically imaged IMPRESSION: Limited study The upper dorsal vertebral bodies are not diagnostically imaged
--- NOTE | 2025-01-16 18:21 | ECHO_ITS ---
Transthoracic Echo Report Ht (in): 63 Wt (lb): 163 Exam Location: Echo Lab Status: Inpatient Emissions Testing Technician: Mirian Kim Indications: Procedure Performed: BP: 119 / 60 HR: 106 Rhythm: Other Technical Quality: Poor MEASUREMENTS (Male / Female) Normal Values 2D ECHO LV Diastolic Diameter PLAX 4.5 cm 4.2 - 5.9 / 3.9 - 5.3 cm LV Systolic Diameter PLAX 2.8 cm IVS Diastolic Thickness 1.1 cm 0.6 - 1.0 / 0.6 - 0.9 cm LVPW Diastolic Thickness 1.2 cm 0.6 - 1.0 / 0.6 - 0.9 cm LV Relative Wall Thickness 0.5 LVOT Diameter 1.8 cm Aortic Root Diameter 2.7 cm LA Systolic Diameter LX 3.2 cm 3.0 - 4.0 / 2.7 - 3.8 cm LV Ejection Fraction MOD BP 50.3 % >= 55 % LV Cardiac Index MOD BP 3106.8 cm?/min?m? LV Ejection Fraction MOD 4C 44.6 % LV Cardiac Index MOD 4C 2454.2 cm?/min?m? LV Ejection Fraction 4C AL 46.3 % LV Cardiac Index 4C AL 2637.2 cm?/min?m? LV Ejection Fraction MOD 2C 52.6 % LV Cardiac Index MOD 2C 3280.0 cm?/min?m? LV Ejection Fraction 2C AL 54.9 % LV Cardiac Index 2C AL 3489.0 cm?/min?m? LA Volume Index 19.5 cm?/m? 16 - 28 cm?/m? M-MODE Aortic Root Diameter MM 2.7 cm LA Systolic Diameter MM 4.3 cm LA Ao Ratio MM 1.6 AV Cusp Separation MM 1.3 cm DOPPLER AV Peak Velocity 175.0 cm/s AV Peak Gradient 12.3 mmHg AV Mean Gradient 6.0 mmHg AV Velocity Time Integral 25.3 cm LVOT Peak Velocity 123.5 cm/s LVOT Peak Gradient 6.1 mmHg LVOT Velocity Time Integral 21.9 cm LVOT Cardiac Index 3225.5 cm?/min?m? AV Area Cont Eq vti 2.2 cm? AV Area Cont Eq pk 1.8 cm? MV Area PHT 5.4 cm? MR Peak Velocity 482.0 cm/s MR Peak Gradient 92.9 mmHg Mitral E Point Velocity 83.4 cm/s Mitral A Point Velocity 121.0 cm/s Mitral E to A Ratio 0.7 LV E' Lateral Velocity 8.7 cm/s Mitral E to LV E' Lateral Ratio 9.6 LV E' Septal Velocity 11.6 cm/s Mitral E to LV E' Septal Ratio 7.2 PV Peak Velocity 149.0 cm/s PV Peak Gradient 8.9 mmHg FINDINGS Left Ventricle Normal left ventricular size, wall thickness, systolic function with no obvious regional wall motion abnormalities.there is grade I diastolic dysfunction of the left ventricle (impaired relaxation pattern). The ejection fraction is visually estimated at 55-60 %. Right Ventricle The right ventricle is normal in size and systolic function. Left Atrium The left atrium is normal by two-dimensional, color flow and Doppler imaging with no structural abnormalities, no thrombus formation present. Right Atrium The right atrium is normal by two-dimensional imaging, color flow and Doppler imaging with no structural abnormalities, no thrombus formation present. Atrial Septum The interatrial septum appears normal with no evidence of a shunt. Aorta The aorta is normal by two-dimensional, color flow and Doppler interrogation. Mitral Valve [id number] mitral regurgitation. Mild mitral annular calcification. Aortic Valve Aortic valve sclerosis. Tricuspid Valve The tricuspid valve is normal by two-dimensional, color flow and Doppler interrogation. There is mild tricuspid valve regurgitation. Pulmonic Valve The pulmonic valve is not well visualized. There is no significant pulmonic valve regurgitation. Vessels The pulmonary artery appears normal. The inferior vena cava pulmonary and hepatic veins appear normal. Pericardium The pericardium is normal by two-dimensional imaging. There is no significant pericardial effusion. CONCLUSIONS Indication: Stroke Negative bubble study Left ventricle dimensions normal with evidence of severe left ventricle hypertrophy asymmetric septal hypertrophy with septal thickness of 20 mm with normal left ventricle function ejection fraction of 60%. Grade 1 diastolic dysfunction is present. The RV is normal in size and systolic function. Aortic Valve sclerosis calcification with evidence of mild aortic stenosis gradient of peak velocity 1.7 m/s Mitral annulus calcification with evidence of mild mitral regurgitation. Amina García (Electronically Signed) Final Date: 17 January 2025 14:35
[2025-01-16] MEDS: ATORVASTATIN CALCIUM 20 MG TABLET 80 MG PO (21:10)
[2025-01-16] MEDS: PIPER/TAZO 3.375 GM PREMIX 3.375 GM/50 ML BAG IV (21:21)
[2025-01-16] MEDS: HYDROcodone/APAP 5/325 TABLET 1 TAB PO (21:21)
--- NOTE | 2025-01-16 22:24 | ESPR_ITS ---
Documentation for date of: 01/16/25 Subjective Subjective Interval history: Today patient is more oriented but continues to express pain in all extremities. Exam Vital Signs Temp Pulse Resp BP Pulse Ox O2 Del Method O2 Flow Rate 98.5 F 108 H 25 H 125/81 97 Nasal Cannula 3 01/16/25 19:55 01/16/25 19:55 01/16/25 19:55 01/16/25 19:55 01/16/25 19:55 01/16/25 19:55 01/16/25 19:55 Narrative Exam General: Laying calmly in bed HENT: Normocephalic, atraumatic, normal hearing Neck: Supple, no lymphadenopathy Lungs: Non-labored respirations, symmetric chest rise Heart: Peripheral pulses intact bilaterally Abdomen: Soft, non-tender Musculoskeletal: Unable to assess active range of motion 2/2 pain in all extremities Skin: Skin is warm, dry, no rashes or lesions. Psychiatric: Cooperative, appropriate mood and affect Mental status: Orientation: Oriented to person, place, time, and situation Communication: Patient is cooperative and can follow simple instructions Language: Speech fluent, normal rate and volume, comprehension intact Cranial nerves: CN II: Visual thompson intact CN III: Pupils equal, round, and reactive to light CN III, IV, : No gaze deviation, no nystagmus Horizontal pursuit: intact Vertical pursuit: intact Ptosis: none CN V: Facial sensation to light touch intact bilaterally at the forehead, cheeks, and jaw line CN VII: Face symmetric, no facial droop appreciated CN VIII: Able to hear and respond to conversation at normal volume CN IX, X: Palate elevation symmetric, uvula midline CN XI: Head turn and shoulder shrug strong, symmetric bilaterally CN XII: Normal tongue protrusion without deviation, no fasciculations Motor: Myoclonic jerking appreciated in b/l lower extremities No atrophy Muscle strength: Unable to assess 2/2 pain in all extremities Sensory: RUE: Light touch intact LUE: Light touch intact RLE: Light touch intact LLE: Light touch intact Reflexes: Biceps (C5-6): R 2+ L 2+ Brachioradialis (C5-6): R 2+ L 2+ Triceps (C7-8): R 2+ L 2+ Patellae (L3-4): R 2+ L 2+ Achilles (S1-2):R 2+ L 2+ Cerebellum: RUE: No dysmetria (finger to nose), no dysdiadochokinesia (rapid alternating movements) LUE: No dysmetria (finger to nose), no dysdiadochokinesia (rapid alternating movements) RLE: Unable to assess LLE: Unable to assess Gait: Deferred Objective Labs 01/17/25 04:20 01/17/25 04:20 Labs: Laboratory Results - last 24 hr 01/16/25 05:01 WBC 29.6 H RBC 3.39 L Hgb 10.0 L D Hct 29.3 L MCV 86 MCH 29.5 MCHC 34.1 RDW Std Deviation 60.2 H Plt Count 69 L Neut % (Auto) 87 H Lymph % (Auto) 3 L [place] % (Auto) 7 Eos % (Auto) 0 Baso % (Auto) 0 Neut # (Auto) 25.8 H Lymph # (Auto) 0.7 L [place] # (Auto) 2.0 H Eos # (Auto) 0.0 Baso # (Auto) 0.1 Immature Gran # (Auto) 0.99 H Absolute Nucleated RBC 0.02 H Immature Gran % 3 H Nucleated RBC % 0 PT 12.1 INR 1.1 APTT 33.3 Sodium 137 Potassium 4.8 D Chloride 97 L Carbon Dioxide 22.9 Anion Gap 17 H BUN 68 H Creatinine 8.8 H* D Estim Creat Clear Calc 8.4 L eGFR 6 L* BUN/Creatinine Ratio 8 L Glucose [address] Glu mg/dL 128 Hemoglobin A1c 6.1 H Calculated Osmolality 297 H Calcium 8.7 Corrected Calcium 9.3 Phosphorus 11.8 H Magnesium 2.5 Total Bilirubin 2.3 H AST 16 ALT 20 Alkaline Phosphatase 150 H Troponin I 0.689 H* Total Protein 6.3 Albumin 3.2 L D Globulin 3.1 Albumin/Globulin Ratio 1.0 L TSH 0.81 Misc Test Result Platelets confirmed ABG Interpretation ABG results: 01/15/25 19:57 VBG pH 7.48 VBG pCO2 27 L VBG pO2 54 VBG Base Excess -2 Quality Measures Quality Measures VTE prophylaxis Assessment & Plan Assessment Current Active Medications: Generic Name Dose Route Start Last Admin Trade Name Freq PRN Reason Stop Dose Admin Acetaminophen 650 mg 01/15/25 18:19 Acetaminophen 325 Mg Tablet PO 02/14/25 18:18 Q6H PRN Fever >101.5 Acetaminophen 650 mg 01/15/25 18:19 Acetaminophen 325 Mg Tablet PO 02/14/25 18:18 Q6H PRN PAIN SCALE 1-3 (mild Hydrocodone Bitart/Acetaminophen 1 tab 01/16/25 07:55 01/16/25 21:21 Hydrocodone/Apap 5/325 Tablet PO 01/21/25 07:54 1 tab Q6HR PRN Administration PAIN SCALE 4-6 (Moderate Apixaban 5 mg 01/15/25 21:00 01/16/25 21:10 Apixaban 2.5 Mg Tablet PO 02/14/25 20:59 5 mg BID ADRIANA Administration Atorvastatin Calcium 80 mg 01/15/25 21:00 01/16/25 21:10 Atorvastatin Calcium 20 Mg Tablet PO 02/14/25 20:59 80 mg HS ADRIANA Administration Calcium Acetate 2,001 mg 01/16/25 12:00 01/16/25 18:39 Calcium Acetate 667 Mg Tablet PO 02/15/25 11:59 Not Given TIDWM ADRIANA Dextrose 25 ml 01/15/25 23:44 Dextrose 50%-Water Inj 50 Ml Syringe IV 02/14/25 23:43 Q15MIN PRN BG 50-70 responsive npo pt Dextrose 50 ml 01/15/25 23:44 Dextrose 50%-Water Inj 50 Ml Syringe IV 02/14/25 23:43 Q15MIN PRN BG <50 OR BG <70 & pt unresponsive Glucagon 1 mg 01/15/25 23:44 Glucagon Inj 1 Mg Vial IM Q15MIN PRN BG <70, and no IV access Heparin Sodium (Porcine) 3,300 unit 01/15/25 16:07 01/16/25 18:06 Heparin Sod Inj 1000 Unit/Ml Vial 10 Ml INDWELLCAT 01/29/25 16:06 3,300 unit PRN PRN Administration DIALYSIS Hydromorphone HCl 0.25 mg 01/16/25 01:54 01/16/25 02:03 Hydromorphone Inj 2 Mg/Ml Vial IVP 01/21/25 01:53 0.25 mg Q4HR PRN Administration Pain 7-10 Piperacillin/Tazobactam/Dextrose 3.375 gm in 50 mls @ 12.5 mls/hr 01/16/25 09:00 01/16/25 21:21 Zosyn IV 01/23/25 08:59 12.5 mls/hr Q12HR ADRIANA Administration Insulin Human Lispro 0 unit 01/16/25 07:30 01/16/25 18:39 Insulin Lispro (Admelog) 1 Unit/0.01 Ml Unit SC 02/15/25 07:29 Not Given AC ADRIANA Protocol Ondansetron HCl 4 mg 01/15/25 18:19 Ondansetron Inj 2 Mg/Ml Inj 2 Ml IVP 02/14/25 18:18 Q6H PRN NAUSEA OR VOMITING Protocol Vitamin B Complex/Vit C/Folic Acid 1 tab 01/16/25 09:00 01/16/25 09:54 Vit B12/Vit C/Fa (Nephrovite) Tablet PO 02/15/25 08:59 1 tab QDAY ADRIANA Administration Plan Plan #Acute Encephalopathy #ESRD on HD M/W/F #Uremia Patient on HD, missed several HD appointments last week 2/ fall with head strike. Patient expresses pain in all extremities limiting physical exam. CT head w/o, CTA head/neck, MRI negative for acute hemorrhage, mass effect, midline shift, LVO, acute infarct. CTA head/neck showed 60% stenosis intracranial left vertebral artery.50% stenosis, on the right 60% stenosis on the left Carotid doppler: Right internal carotid artery demonstrates 10-30% stenosis.Left internal carotid artery demonstrates 0-10% stenosis.No right vertebral artery flow is depicted DDX: toxic/metabolic (ESRD on HD, missed HD sessions / uremia), infectious (UTI, GNR bacteremia), hypertensive encephalopathy (sBPs reach 190s) Plan - Following with nephrology, known to Dr. Garcia, on HD - Pending ECHO Doppler ordered - Pending MRI C/T spine - Serum creatinine kinase (CK) to r/o rhabdomyolysis - Pain management with Gabapentin 100 mg TID - Abx management per primary team #Diabetes mellitus type 2 Hgb A1C 6.1 (down from 6.9) Plan: - Management per primary team #Paroxysmal A-fib, rate controlled [id number]: 4 HAS-BLED:3 Plan: - Management per primary team - Eliquis 5 mg BID #Hyperlipidemia Plan: - Continue home Atorvastatin 80mg daily Plan discussed with Dr. Abdiaziz Cruz, PGY1 Attending Provider Attestation/Addendum I personally have seen and examined the patient at the bedside and I agreed with resident's findings, assessment and plan of care. As he continues to have myalgia with extreme sensitivity to touch even though it is much better compared to yesterday, will check CK and try GP low dose. FU with rest of the workup.
[2025-01-17] VITALS (7 sets, daily range): BP systolic 117–169; BP diastolic 64–84; PULSE 88–101; RESP 15–26; TEMP 36.1–37.3; O2SAT 94–99
[2025-01-17 06:43] LABS: Basophils # (Auto) 0.0 Thou/mm3 (0.0-0.2); Basophils % (Auto) 0 % (0-2.5); Eosinophils # (Auto) 0.0 Thou/mm3 (0.0-0.5); Eosinophils % (Auto) 0 % (0-10); Hematocrit 30.1 % (41.0-53.0); Hemoglobin 9.9 g/dL (13.5-16.0); Immature Granulocytes Auto 0.68 Thou/mm3 (0.00-0.00); Lymphocytes # (Auto) 0.6 Thou/mm3 (1.0-4.8); Lymphocytes % (Auto) 2 % (10-50); Mean Corpuscular HGB Conc 32.9 g/dl (31.0-37.0); Mean Corpuscular Hemoglobin 29.7 pg (25.0-35.0); Mean Corpuscular Volume 90 fL (80-100); Monocytes # (Auto) 1.6 Thou/mm3 (0.0-0.8); Monocytes % (Auto) 7 % (0-12); Neutrophils # (Auto) 20.9 Thou/mm3 (1.8-7.7); Neutrophils % (Auto) 88 % (37-80); Nucleated Red Blood Cell # 0.00 Thou/mm3 (0.00-0.00); Nucleated Red Blood Cell % 0 /100 WBC (0); Platelet Count 98 Thou/mm3 (140-440); RDW Standard Deviation 64.4 fL (35.1-43.9); Red Blood Count 3.33 Miln/mm3 (4.50-5.90); White Blood Count 23.9 Thou/mm3 (3.8-10.6)
[2025-01-17 07:09] LABS: Alanine Aminotransferase 28 U/L (10-49); Albumin, Serum 3.4 gm/dL (3.5-5.0); Albumin/Globulin Ratio 1.0 (1.2-2.2); Alkaline Phosphatase 199 U/L (46-116); Anion Gap 19 (7-16); Aspartate Amino Transferase 31 U/L (0-34); BUN/Creatinine Ratio 8 Ratio (12-20); Bilirubin,Total 3.0 mg/dL (0.3-1.2); Blood Urea Nitrogen 49 mg/dL (9-23); Calcium 9.0 mg/dL (8.3-10.6); Calcium (Corrected) 9.5 mg/dL (8.5-10.1); Carbon Dioxide 23.5 mMol/L (20.0-31.0); Chloride 97 mMol/L (98-107); Creatinine (Component) 6.4 mg/dL (0.6-1.3); Estimated Creatinine Clearance 11.5 mL/min (>60); Globulin 3.3 gm/dL (2.3-3.5); Glucose 153 mg/dL (74-106); Magnesium 2.4 mg/dL (1.6-2.6); Osmolality,Calculated 293 (275-295); Phosphorous 8.6 mg/dL (2.4-5.1); Potassium 4.4 mMol/L (3.4-5.1); Sodium 139 mMol/L (136-145); Total Protein 6.7 gm/dL (5.7-8.2); eGFR 9 See Note
--- NOTE | 2025-01-17 07:25 | PD.RESPRO ---
Documentation for date of: 01/17/25 Subjective Subjective Interval history: Pt examined at bedside today. No acute overnight events. Pt reports he is doing well. He denies a hx of liver problems. He said he slept okay. He is wondering when he is going home. He denies any abdominal pain at this time, however, he notices that his abdomen looks a bit larger at this time. No other complaints at this time. Exam Vital Signs Temp Pulse Resp BP Pulse Ox O2 Del Method O2 Flow Rate 97.4 F 98 18 169/71 H 99 Nasal Cannula 3 01/17/25 04:00 01/17/25 04:00 01/17/25 04:00 01/17/25 04:00 01/17/25 04:00 01/17/25 04:00 01/17/25 04:00 Narrative Exam General: AAOx3, NAD, obese male HEENT: Dry mucous membranes, conjunctiva clear, EOMI, PERRLA, Cardiovascular: S1, S2, radial pulses +2 bilat, regular rate and rhythm, R TDC present Pulmonary: CTAB bilat no cough, no wheezing GI: No tenderness to palpitation, abdomen distended, tympanic percussion, fluid wave shift possibly resembling ascites Extremities: No presence of trace or pitting edema in lower extremities bilaterally, dorsalis pedis pulses +2 bilaterally Skin: R TDC present, no erythema surrounding it Neuro: AAOx3, no focal motor or sensory deficits in the UE or LE bilat Psych: Good judgement, thought and behavior Objective Labs 01/17/25 04:20 01/17/25 04:20 Labs: Laboratory Results - last 24 hr 01/16/25 01/17/25 05:01 04:20 WBC 23.9 H D RBC 3.33 L Hgb 9.9 L Hct 30.1 L MCV 90 MCH 29.7 MCHC 32.9 RDW Std Deviation 64.4 H Plt Count 98 L D Neut % (Auto) 88 H Lymph % (Auto) 2 L [place] % (Auto) 7 Eos % (Auto) 0 Baso % (Auto) 0 Neut # (Auto) 20.9 H Lymph # (Auto) 0.6 L [place] # (Auto) 1.6 H Eos # (Auto) 0.0 Baso # (Auto) 0.0 Immature Gran # (Auto) 0.68 H Absolute Nucleated RBC 0.00 Immature Gran % 3 H Nucleated RBC % 0 Sodium 139 Potassium 4.4 Chloride 97 L Carbon Dioxide 23.5 Anion Gap 19 H BUN 49 H Creatinine 6.4 H* D Estim Creat Clear Calc 11.5 L eGFR 9 L* BUN/Creatinine Ratio 8 L Glucose 153 H Calculated Osmolality 293 Calcium 9.0 Corrected Calcium 9.5 Phosphorus 8.6 H Magnesium 2.4 Total Bilirubin 3.0 H D AST 31 ALT 28 Alkaline Phosphatase 199 H D Troponin I 0.689 H* Total Protein 6.7 Albumin 3.4 L Globulin 3.3 Albumin/Globulin Ratio 1.0 L ABG Interpretation ABG results: 01/15/25 19:57 VBG pH 7.48 VBG pCO2 27 L VBG pO2 54 VBG Base Excess -2 Quality Measures Quality Measures VTE prophylaxis Assessment & Plan Assessment Current Active Medications: Generic Name Dose Route Start Last Admin Trade Name Freq PRN Reason Stop Dose Admin Acetaminophen 650 mg 01/15/25 18:19 Acetaminophen 325 Mg Tablet PO 02/14/25 18:18 Q6H PRN Fever >101.5 Acetaminophen 650 mg 01/15/25 18:19 Acetaminophen 325 Mg Tablet PO 02/14/25 18:18 Q6H PRN PAIN SCALE 1-3 (mild Hydrocodone Bitart/Acetaminophen 1 tab 01/16/25 07:55 01/16/25 21:21 Hydrocodone/Apap 5/325 Tablet PO 01/21/25 07:54 1 tab Q6HR PRN Administration PAIN SCALE 4-6 (Moderate Apixaban 5 mg 01/15/25 21:00 01/16/25 21:10 Apixaban 2.5 Mg Tablet PO 02/14/25 20:59 5 mg BID ADRIANA Administration Atorvastatin Calcium 80 mg 01/15/25 21:00 01/16/25 21:10 Atorvastatin Calcium 20 Mg Tablet PO 02/14/25 20:59 80 mg HS ADRIANA Administration Calcium Acetate 2,001 mg 01/16/25 12:00 01/16/25 18:39 Calcium Acetate 667 Mg Tablet PO 02/15/25 11:59 Not Given TIDWM ADRIANA Dextrose 25 ml 01/15/25 23:44 Dextrose 50%-Water Inj 50 Ml Syringe IV 02/14/25 23:43 Q15MIN PRN BG 50-70 responsive npo pt Dextrose 50 ml 01/15/25 23:44 Dextrose 50%-Water Inj 50 Ml Syringe IV 02/14/25 23:43 Q15MIN PRN BG <50 OR BG <70 & pt unresponsive Gabapentin 100 mg 01/17/25 07:30 Gabapentin 100 Mg Capsule PO 02/16/25 07:29 TID ADRIANA Glucagon 1 mg 01/15/25 23:44 Glucagon Inj 1 Mg Vial IM Q15MIN PRN BG <70, and no IV access Heparin Sodium (Porcine) 3,300 unit 01/15/25 16:07 01/16/25 18:06 Heparin Sod Inj 1000 Unit/Ml Vial 10 Ml INDWELLCAT 01/29/25 16:06 3,300 unit PRN PRN Administration DIALYSIS Hydromorphone HCl 0.25 mg 01/16/25 01:54 01/16/25 02:03 Hydromorphone Inj 2 Mg/Ml Vial IVP 01/21/25 01:53 0.25 mg Q4HR PRN Administration Pain 7-10 Piperacillin/Tazobactam/Dextrose 3.375 gm in 50 mls @ 12.5 mls/hr 01/16/25 09:00 01/16/25 21:21 Zosyn IV 01/23/25 08:59 12.5 mls/hr Q12HR ADRIANA Administration Insulin Human Lispro 0 unit 01/16/25 07:30 01/16/25 18:39 Insulin Lispro (Admelog) 1 Unit/0.01 Ml Unit SC 02/15/25 07:29 Not Given AC [facility], [facility]–1983 Protocol Ondansetron HCl 4 mg 01/15/25 18:19 Ondansetron Inj 2 Mg/Ml Inj 2 Ml IVP 02/14/25 18:18 Q6H PRN NAUSEA OR VOMITING Protocol Vitamin B Complex/Vit C/Folic Acid 1 tab 01/16/25 09:00 01/16/25 09:54 Vit B12/Vit C/Fa (Nephrovite) Tablet PO 02/15/25 08:59 1 tab QDAY ADRIANA Administration Plan Assessment: 59 year old male with history of hypertension, diabetes, hyperlipidemia, ESRD admitted for acute encepahlopathy. Patient being worked up for stroke. #Acute Encephalopathy, improving #CVA - ruled out #Generalized weakness DDX: toxic/metabolic (ESRD on HD, missed HD sessions), infectious (UTI), hypertensive encephalopathy (sBPs reach 190s) In the ED, BUN was 122, Cr was 13.8, and eGFR was 4. Patient missed several HD appts. Teleneuro assessed patient and noted NIHSS score of 18. CT head w/o 01/15/25: Negative for acute hemorrhage, mass effect or midline shift CTA head/neck 01/15/25: No significant neck arterial stenoses. No critical vertebral artery stenoses in the neck. 60% stenosis intracranial left vertebral artery. Attenuated basilar artery which does fill with no large vessel occlusions involving the basilar artery or posterior cerebral branches. Heavy calcification juxtasellar portions internal carotid arteries, 50% stenosis on the right 60% stenosis on the left. No middle cerebral or anterior cerebral artery large vessel occlusions CXR: Moderate vascular congestion WBC elevated, UA + UTI, serum ammonia WNL, TSH WNL Carotid dopper (01/16/25): Right internal carotid artery demonstrates 10-30% stenosis. Left internal carotid artery demonstrates 0-10% stenosis. No right vertebral artery flow is depicted Brain MRI with MRA negative (01/16/25). Negative for acute hemorrhage mass effect or midline shift. No acute infarct Echo 01/17/2025: Left ventricle dimensions normal with evidence of severe left ventricle hypertrophy asymmetric septal hypertrophy with septal thickness of 20 mm with normal left ventricle function ejection fraction of 60%. Grade 1 diastolic dysfunction is present. The RV is normal in size and systolic function. Aortic Valve sclerosis calcification with evidence of mild aortic stenosis gradient of peak velocity 1.7 m/s Mitral annulus calcification with evidence of mild mitral regurgitation. Plan: - Neurology consulted, Appreciate Recs - Following with nephrology, known to Dr. Garcia, follow recs - Continue calcium acetate for management of hyperphosphatemia (Phos 11.8 07/03 AM labs) - MRI thoracic, cervical and lumbar spine w/out contrast #Enterobacter cloacae Bacteremia #Enterobacter cloacae UTI Blood culture (+) x2 sources on 01/15/25 UA: WBC 217, Leuk (+) on 01/15/25 Urine Cx - pending Repeat blood cultures show GNR 2/2 If repeat blood cultures tomorrow are positive, may need to consider taking out TDC Plan: Changed from Zoysn to Rocephin 2g IV qday based on microbiology sensitivities Repeat Blood cultures tomorrow Antipyretics and analgesia #HAGMA #Lactic Acidosis Lactate 3.3, AG 19 Likely related to Lactate HCO3- 24 Plan: - Trend Lactate q6h - Nephrology consulted, appreciate recs #Renal cyst - bilateral #Renal mass ruled out CT abdomen pelvis wo con Hepatosplenomegaly. Trace ascites. Tiny bilateral renal calculi. Recommend renal sonography follow-up to exclude 32 mm anterior right renal mass. Urinary bladder wall thickening, differential would include cystitis Renal US - ruled renal mass. Bilateral renal cortical thinning. Mild to moderate bilateral renal parenchymal scar formation. 5 mm left renal calculus Plan: - Monitor worsening clinical status (fever, new abdominal pain) #Hepatosplenomegaly #Cholelithiasis #Mild cirrhosis #? Ascites CT abdomen showed Liver mildly irregular in contour. Hepatomegaly 19 cm. Splenomegaly 14 cm. Cholelithiasis. Gallbladder wall appears mildly thickened. Plan: Monitor worsening clinical status (fever, new abdominal pain) Patient to f/u with PCP for further w/u of cirrhosis Repeat Abd US limited #Insulin Independent Type II Diabetes mellitus type 2 Hgb A1C 6.1 (down from 6.9). Well controlled. Patient is not on diabetic meds at home, mentions diet-controlled. Glucose 173 in AM - patient does have bacteremia Plan: ? Sliding scale insulin ? Hypoglycemic protocol in place ? Blood sugar checks with meals #Paroxysmal A-fib, rate controlled [id number]: 4 HAS-BLED:3 Plan: - Eliquis 5 mg BID - Keep Mag > 2 and K > 4 - Telemetry - Home Metoprolol XL 25 mg qday #Hyperlipidemia LDL 83 Plan: - Continue home Atorvastatin 80mg daily #Health Maintenance Disposition: Telemetry DVT prophylaxis: Eliquis 5 mg BID GI prophylaxis: None indicated at this time Diet: Renal CODE STATUS: DNR Patient seen and care discussed with my attending physician, Dr. Sapna Crandall, PGY-2 Attending Provider Attestation/Addendum I attest that I was physically present for the evaluation, physical examination, lab and imaging review of the patient with the residents. I discussed the case with the residents and agree with the findings and plans of care as documented above. Ally Alejo MD
[2025-01-17] MEDS: INSULIN LISPRO (AdmeLOG) 1 UNIT/0.01 ML UNIT SC ×3 (07:41→17:15)
[2025-01-17 07:44] LABS: Creatine Kinase 24 U/L (34-171)
[2025-01-17 07:59] LABS: Lactate (Lactic Acid) 3.1 mMol/L (0.4-2.0)
[2025-01-17] MEDS: GABAPENTIN 100 MG CAPSULE PO ×2 (08:21→21:13)
[2025-01-17] MEDS: PIPER/TAZO 3.375 GM PREMIX 3.375 GM/50 ML BAG IV (08:21)
[2025-01-17] MEDS: APIXABAN 2.5 MG TABLET 5 MG PO ×2 (08:21→21:13)
[2025-01-17] MEDS: VIT B12/Vit C/FA (Nephrovite) TABLET 1 TAB PO (08:21)
[2025-01-17] MEDS: CALCIUM ACETATE 667 MG TABLET 2001 MG PO ×3 (08:22→17:16)
[2025-01-17 08:23] LABS: INR 1.2 (0.9-1.3); Partial Thromboplastin Time 34.2 Seconds (22.0-36.0); Prothrombin Time 12.9 Seconds (9.0-12.2)
--- NOTE | 2025-01-17 08:46 | ESPR_ITS ---
Documentation for date of: 01/17/25 Subjective Subjective Interval history: Overnight events: No acute events overnight. Patient was seen and examined at bedside. AM vitals and labs reviewed. Hemodialysis performed yesterday, 3 hours duration with all blood returned. BUN, Cr, and eGFR are 49, 6.4, and 9 respectively. Phosphorus 8.6. Patient stated that he has not been urinating, but Ins/Outs 720/400 with Outs entirely from urine. The patient had pain to touch in BUE, but otherwise no complaints or concerns at this time. Review of systems otherwise negative except for what is mentioned above. Exam Vital Signs Temp Pulse Resp BP Pulse Ox O2 Del Method O2 Flow Rate 97.4 F 98 18 169/71 H 99 Nasal Cannula 3 01/17/25 04:00 01/17/25 04:00 01/17/25 04:00 01/17/25 04:00 01/17/25 04:00 01/17/25 04:00 01/17/25 04:00 Narrative Exam Physical Exam: General: Alert, no acute distress. Skin: Warm, dry, intact, no obvious rash. Head: Normocephalic, atraumatic. Eye: Normal conjunctiva, PERRL. Throat: Oral mucosa moist. No obvious lesions in oropharynx. Cardiovascular: Regular rate and rhythm, no murmur, +S1/S2. Respiratory: Lungs are clear to auscultation, respirations unlabored, no crackles, no wheezing. Gastrointestinal: Soft, nontender, distended. No guarding or rebound tenderness. Extremities: No edema, no cyanosis, no clubbing. 2+ radial pulse bilaterally, 2+ pedal pulse bilaterally. Neuro: No focal deficits observed. Conversant, moving all extremities. No overt cerebellar signs/incoordination. Psychiatric: Cooperative, appropriate affect. Objective Labs 01/18/25 04:25 01/18/25 04:25 Labs: Laboratory Results - last 24 hr 01/17/25 01/17/25 04:20 07:30 WBC 23.9 H D RBC 3.33 L Hgb 9.9 L Hct 30.1 L MCV 90 MCH 29.7 MCHC 32.9 RDW Std Deviation 64.4 H Plt Count 98 L D Neut % (Auto) 88 H Lymph % (Auto) 2 L [place] % (Auto) 7 Eos % (Auto) 0 Baso % (Auto) 0 Neut # (Auto) 20.9 H Lymph # (Auto) 0.6 L [place] # (Auto) 1.6 H Eos # (Auto) 0.0 Baso # (Auto) 0.0 Immature Gran # (Auto) 0.68 H Absolute Nucleated RBC 0.00 Immature Gran % 3 H Nucleated RBC % 0 PT 12.9 H INR 1.2 APTT 34.2 Sodium 139 Potassium 4.4 Chloride 97 L Carbon Dioxide 23.5 Anion Gap 19 H BUN 49 H Creatinine 6.4 H* D Estim Creat Clear Calc 11.5 L eGFR 9 L* BUN/Creatinine Ratio 8 L Glucose 153 H Calculated Osmolality 293 Lactic Acid 3.1 H Calcium 9.0 Corrected Calcium 9.5 Phosphorus 8.6 H Magnesium 2.4 Total Bilirubin 3.0 H D AST 31 ALT 28 Alkaline Phosphatase 199 H D Total Creatine Kinase 24 L Total Protein 6.7 Albumin 3.4 L Globulin 3.3 Albumin/Globulin Ratio 1.0 L ABG Interpretation ABG results: 01/15/25 19:57 VBG pH 7.48 VBG pCO2 27 L VBG pO2 54 VBG Base Excess -2 Quality Measures Quality Measures VTE prophylaxis Assessment & Plan Assessment Current Active Medications: Generic Name Dose Route Start Last Admin Trade Name Freq PRN Reason Stop Dose Admin Acetaminophen 650 mg 01/15/25 18:19 Acetaminophen 325 Mg Tablet PO 02/14/25 18:18 Q6H PRN Fever >101.5 Acetaminophen 650 mg 01/15/25 18:19 Acetaminophen 325 Mg Tablet PO 02/14/25 18:18 Q6H PRN PAIN SCALE 1-3 (mild Hydrocodone Bitart/Acetaminophen 1 tab 01/16/25 07:55 01/16/25 21:21 Hydrocodone/Apap 5/325 Tablet PO 01/21/25 07:54 1 tab Q6HR PRN Administration PAIN SCALE 4-6 (Moderate Apixaban 5 mg 01/15/25 21:00 01/17/25 08:21 Apixaban 2.5 Mg Tablet PO 02/14/25 20:59 5 mg BID ADRIANA Administration Atorvastatin Calcium 80 mg 01/15/25 21:00 01/16/25 21:10 Atorvastatin Calcium 20 Mg Tablet PO 02/14/25 20:59 80 mg HS ADRIANA Administration Calcium Acetate 2,001 mg 01/16/25 12:00 01/17/25 08:22 Calcium Acetate 667 Mg Tablet PO 02/15/25 11:59 2,001 mg TIDWM ADRIANA Administration Dextrose 25 ml 01/15/25 23:44 Dextrose 50%-Water Inj 50 Ml Syringe IV 02/14/25 23:43 Q15MIN PRN BG 50-70 responsive npo pt Dextrose 50 ml 01/15/25 23:44 Dextrose 50%-Water Inj 50 Ml Syringe IV 02/14/25 23:43 Q15MIN PRN BG <50 OR BG <70 & pt unresponsive Gabapentin 100 mg 01/17/25 07:30 01/17/25 08:21 Gabapentin 100 Mg Capsule PO 02/16/25 07:29 100 mg TID ADRIANA Administration Glucagon 1 mg 01/15/25 23:44 Glucagon Inj 1 Mg Vial IM Q15MIN PRN BG <70, and no IV access Heparin Sodium (Porcine) 3,300 unit 01/15/25 16:07 01/16/25 18:06 Heparin Sod Inj 1000 Unit/Ml Vial 10 Ml INDWELLCAT 01/29/25 16:06 3,300 unit PRN PRN Administration DIALYSIS Hydromorphone HCl 0.25 mg 01/16/25 01:54 01/16/25 02:03 Hydromorphone Inj 2 Mg/Ml Vial IVP 01/21/25 01:53 0.25 mg Q4HR PRN Administration Pain 7-10 Piperacillin/Tazobactam/Dextrose 3.375 gm in 50 mls @ 12.5 mls/hr 01/16/25 09:00 01/17/25 08:21 Zosyn IV 01/23/25 08:59 12.5 mls/hr Q12HR ADRIANA Administration Insulin Human Lispro 0 unit 01/16/25 07:30 01/17/25 07:41 Insulin Lispro (Admelog) 1 Unit/0.01 Ml Unit SC 02/15/25 07:29 1 unit AC ADRIANA Administration Protocol Metoprolol Succinate 25 mg 01/17/25 09:00 Metoprolol Succinate Xl 25 Mg Tabcr PO 02/16/25 08:59 QDAY ADRIANA Ondansetron HCl 4 mg 01/15/25 18:19 Ondansetron Inj 2 Mg/Ml Inj 2 Ml IVP 02/14/25 18:18 Q6H PRN NAUSEA OR VOMITING Protocol Vitamin B Complex/Vit C/Folic Acid 1 tab 01/16/25 09:00 01/17/25 08:21 Vit B12/Vit C/Fa (Nephrovite) Tablet PO 02/15/25 08:59 1 tab QDAY ADRIANA Administration Plan Mr. Springer is a 59? year old male with a relevant medical history of ESRD on HD M/W/ followed by Dr. Garcia, HTN, T2DM, and HLD who presents with altered mental status. Nephrology was consulted for the patient's hemodialysis management. #ESRD on HD M/W/ #Uremia Patient is well known to Dr. Garcia. BUN, Cr, and eGFR were 122, 13.8, and 4 respectively on admission, suggesting the patient was not able to attend one or more of his HD sessions. This was later confirmed by his son who stated that he missed several sessions last week. Increased BUN may explain the altered mental status due to uremic encephalopathy. - Performed HD 01/15 and 01/16. Planning another HD session tomorrow, and then Monday so that the patient can return to their [facility] HD schedule. - Continue calcium acetate for management of hyperphosphatemia. - Continue to monitor renal function - Nephrology will continue to follow Patient was discussed with the Nephrology attending, Dr. Garcia. Thank you for allowing us to participate in the care of this patient. Bebeto Pino, PGY-1 Attending Provider Attestation/Addendum Pt is seen and examined. labs and investigations are reviewed. Agree with assessment and plan and findings by resident. Pastor Garcia MD
[2025-01-17] MEDS: METOPROLOL SUCCINATE XL 25 MG TABCR PO (09:03)
--- NOTE | 2025-01-17 10:10 | XR_ITS ---
Examination: MRI thoracic spine without contrast. Date and time of exam: January 17, 2025 1413 hrs. Indications: Patient fell 2 days ago with injury to the back, back pain Technique: Multiple sagittal and axial images of the thoracic spine have been obtained. T1 weighted localizer, sagittal T2 weighted images, TR 30-50, TE 148, T1 weighted sagittal images, TR 650, TE 14, T2-weighted transverse images, TR 6770, TE 142 Findings: Adequate alignment thoracic vertebral bodies on the lateral view No thoracic fracture Marrow signal is heterogeneous involving the thoracic vertebral bodies No focal thoracic disc protrusion, no impingement upon the thoracic cord No localized enlargement thoracic cord Impression: No thoracic fracture Mild diffuse thoracic disc narrowing Heterogeneous marrow signal involving thoracic vertebral bodies, recommend follow-up MRI thoracic spine post contrast to exclude diffuse osseous metastatic disease
--- NOTE | 2025-01-17 10:10 | XR_ITS ---
Examination: MRI cervical spine without intravenous contrast Date and time of exam: January 17, 2025 1351 hours INDICATIONS: Neck pain radiating to the left leg beginning 2 days ago Technique: Multiple axial and sagittal sections of the cervical spine to been obtained. T2 weighted sagittal sections, TR 3, 270, TE 117 T1-weighted sagittal sections, TR 500, TE 11 T1-weighted axial sections, TR 607, TE 12, axial sections TR 18, TE 27 and T2 weighted transverse sections, TR 3920, TE 122. Findings: Abnormal heterogeneous signal throughout all visualized cervical vertebral bodies No cervical fracture Moderate to advanced disc narrowing C6-C7 Diffuse cervical disc is desiccation Increased signal in the cervical cord which may relate to technique C2-C3 no disc protrusion C3-C4 no disc protrusion C4-C5 4 mm central osteophyte disc complex C5-C6 5 mm central subarticular osteophyte disc complex with advanced left neural foraminal stenosis C6-C7 advanced left neural foraminal stenosis Impression : C4-C5 4 mm central osteophyte disc complex C5-C6 5 mm central subarticular also by disc complex with advanced bilateral neural foraminal stenosis C6-C7 advanced left neural foraminal stenosis Abnormal heterogeneous signal throughout all visualized cervical vertebral bodies, recommend this patient return for MRI cervical spine post intravenous contrast, or whole-body bone scan as clinically warranted
--- NOTE | 2025-01-17 10:10 | XR_ITS ---
Examination: MRI lumbar spine without contrast Date and time of exam: January 17, 2025, 1438 hrs. Indications: Lower back pain radiating to the left leg beginning 2 days ago. Multiple MR axial sagittal images lumbar spine Findings: Abnormal heterogeneous marrow signal Diffuse lumbar disc desiccation No lumbar fracture L5-S1 4 mm central lumbar disc bulge extending to the foraminal regions with mild bilateral L5 ganglionic compression L4-L5 2 mm central lumbar disc bulge More cephalad levels unremarkable Impression: History abnormal marrow signal, differential would include diffuse osseous metastatic disease Recommend MRI lumbar spine post contrast follow-up L5-S1 4 mm central lumbar disc bulge extending to the foraminal regions with mild bilateral L5 ganglionic compression
--- NOTE | 2025-01-17 10:19 | XR_ITS ---
Examination: Abdomen sonogram, Limited Date and time of exam: January 17, 2025, 1116 hrs. Indications: Abdominal distention beginning yesterday Technique: Real-time clemente scale transabdominal sonographic images of the upper abdomen obtained. Findings: Negative for ascites Impression: Negative for ascites
--- NOTE | 2025-01-17 10:23 | PC.SS ---
Updated SNF referrals submitted via [facility], pending responses from SNFs. Incorrect referral was previously uploaded to [facility].
[2025-01-17 10:54] LABS: Reflex Lactate? Y
[2025-01-17 11:41] LABS: Lactic Acid, 3 HR 1.3 mMol/L (0.4-2.0)
[2025-01-17] MEDS: cefTRIAXone 2 GM in SODIUM CHLORIDE 0.9% (Popper) 50 ML IV (12:04)
[2025-01-17] MEDS: HYDROmorphone INJ 2 MG/ML VIAL 0.25 MG IVP (13:29)
[2025-01-17] MEDS: HYDROcodone/APAP 5/325 TABLET 1 TAB PO (17:16)
[2025-01-17] MEDS: ATORVASTATIN CALCIUM 20 MG TABLET 80 MG PO (21:13)
--- NOTE | 2025-01-17 23:44 | VVPN_ITS ---
Telemedicine visit statement This visit was conducted with the use of phone was obtained on 01/17/25 at 2344. Documentation for date of: 01/17/25 Subjective Subjective Interval history: patient is in telemetry today. No new symptoms/worsening pain today. Resting at this time. Virtual exam Vital Signs Temp Pulse Resp BP Pulse Ox O2 Del Method O2 Flow Rate 97.0 F 100 16 118/65 96 Nasal Cannula 3 01/17/25 20:00 01/17/25 20:00 01/17/25 20:00 01/17/25 20:00 01/17/25 20:00 01/17/25 20:00 01/17/25 16:00 Objective Labs 01/17/25 04:20 01/17/25 04:20 Labs: Laboratory Results - last 24 hr 01/17/25 01/17/25 01/17/25 04:20 07:30 11:20 WBC 23.9 H D RBC 3.33 L Hgb 9.9 L Hct 30.1 L MCV 90 MCH 29.7 MCHC 32.9 RDW Std Deviation 64.4 H Plt Count 98 L D Neut % (Auto) 88 H Lymph % (Auto) 2 L [place] % (Auto) 7 Eos % (Auto) 0 Baso % (Auto) 0 Neut # (Auto) 20.9 H Lymph # (Auto) 0.6 L [place] # (Auto) 1.6 H Eos # (Auto) 0.0 Baso # (Auto) 0.0 Immature Gran # (Auto) 0.68 H Absolute Nucleated RBC 0.00 Immature Gran % 3 H Nucleated RBC % 0 PT 12.9 H INR 1.2 APTT 34.2 Sodium 139 Potassium 4.4 Chloride 97 L Carbon Dioxide 23.5 Anion Gap 19 H BUN 49 H Creatinine 6.4 H* D Estim Creat Clear Calc 11.5 L eGFR 9 L* BUN/Creatinine Ratio 8 L Glucose 153 H Calculated Osmolality 293 Lactic Acid 3.1 H 1.3 Calcium 9.0 Corrected Calcium 9.5 Phosphorus 8.6 H Magnesium 2.4 Total Bilirubin 3.0 H D AST 31 ALT 28 Alkaline Phosphatase 199 H D Total Creatine Kinase 24 L Total Protein 6.7 Albumin 3.4 L Globulin 3.3 Albumin/Globulin Ratio 1.0 L ABG Interpretation ABG results: 01/15/25 19:57 VBG pH 7.48 VBG pCO2 27 L VBG pO2 54 VBG Base Excess -2 Assessment & Plan Problem List (1) Acute encephalopathy: Status: Acute Assessment and plan: resolving (2) End-stage renal disease (ESRD): Status: Chronic Assessment and plan: on dialysis (3) HTN (hypertension): Status: Chronic Assessment and plan: continue metoprolol (4) Diabetes mellitus: Status: Chronic Assessment and plan: continue Insulin per sliding scale. (5) Myalgia: Status: Acute Assessment and plan: CK: normal continue with GP tid MRI spine findings could be seen in hyperparathyroidsm/Hyperphosphatemia/ESRD and not specific for metastasis. I do not think that patient would need contrasted study to evaluate further, rather treat hyperphophatemia vigorously.
[2025-01-18] VITALS (23 sets, daily range): BP systolic 110–165; BP diastolic 54–103; PULSE 75–111; RESP 12–95; TEMP 36–36.8; O2SAT 93–97
[2025-01-18] MEDS: ACETAMINOPHEN 325 MG TABLET 650 MG PO (02:36)
[2025-01-18] MEDS: GABAPENTIN 100 MG CAPSULE PO ×3 (05:42→21:37)
[2025-01-18 06:02] LABS: Basophils # (Auto) 0.1 Thou/mm3 (0.0-0.2); Basophils % (Auto) 0 % (0-2.5); Eosinophils # (Auto) 0.0 Thou/mm3 (0.0-0.5); Eosinophils % (Auto) 0 % (0-10); Hematocrit 29.1 % (41.0-53.0); Hemoglobin 9.6 g/dL (13.5-16.0); Immature Granulocytes Auto 0.47 Thou/mm3 (0.00-0.00); Lymphocytes # (Auto) 0.6 Thou/mm3 (1.0-4.8); Lymphocytes % (Auto) 2 % (10-50); Mean Corpuscular HGB Conc 33.0 g/dl (31.0-37.0); Mean Corpuscular Hemoglobin 29.4 pg (25.0-35.0); Mean Corpuscular Volume 89 fL (80-100); Monocytes # (Auto) 1.6 Thou/mm3 (0.0-0.8); Monocytes % (Auto) 6 % (0-12); Neutrophils # (Auto) 25.3 Thou/mm3 (1.8-7.7); Neutrophils % (Auto) 90 % (37-80); Nucleated Red Blood Cell # 0.00 Thou/mm3 (0.00-0.00); Nucleated Red Blood Cell % 0 /100 WBC (0); Platelet Count 105 Thou/mm3 (140-440); RDW Standard Deviation 64.1 fL (35.1-43.9); Red Blood Count 3.27 Miln/mm3 (4.50-5.90); White Blood Count 28.0 Thou/mm3 (3.8-10.6)
[2025-01-18 06:50] LABS: Alanine Aminotransferase 48 U/L (10-49); Albumin, Serum 3.2 gm/dL (3.5-5.0); Albumin/Globulin Ratio 0.9 (1.2-2.2); Alkaline Phosphatase 222 U/L (46-116); Anion Gap 20 (7-16); Aspartate Amino Transferase 49 U/L (0-34); BUN/Creatinine Ratio 8 Ratio (12-20); Bilirubin,Total 2.8 mg/dL (0.3-1.2); Blood Urea Nitrogen 68 mg/dL (9-23); Calcium 9.1 mg/dL (8.3-10.6); Calcium (Corrected) 9.7 mg/dL (8.5-10.1); Carbon Dioxide 22.3 mMol/L (20.0-31.0); Chloride 96 mMol/L (98-107); Creatinine (Component) 8.2 mg/dL (0.6-1.3); Estimated Creatinine Clearance 8.8 mL/min (>60); Globulin 3.5 gm/dL (2.3-3.5); Glucose 264 mg/dL (74-106); Magnesium 2.6 mg/dL (1.6-2.6); Osmolality,Calculated 304 (275-295); Potassium 4.5 mMol/L (3.4-5.1); Sodium 138 mMol/L (136-145); Total Protein 6.7 gm/dL (5.7-8.2); eGFR 7 See Note
[2025-01-18 06:52] LABS: Phosphorous 9.7 mg/dL (2.4-5.1)
[2025-01-18] MEDS: INSULIN LISPRO (AdmeLOG) 1 UNIT/0.01 ML UNIT SC ×2 (07:47→17:01)
[2025-01-18] MEDS: INSULIN GLARGINE (Lantus) 5 UNIT/0.05 ML (PER 5 UNITS) SC (07:48)
[2025-01-18] MEDS: CALCIUM ACETATE 667 MG TABLET 2001 MG PO ×3 (07:51→17:00)
[2025-01-18] MEDS: HYDROcodone/APAP 5/325 TABLET 1 TAB PO ×2 (09:12→18:38)
[2025-01-18] MEDS: cefTRIAXone 2 GM in SODIUM CHLORIDE 0.9% (Popper) 50 ML IV (12:58)
[2025-01-18] MEDS: APIXABAN 2.5 MG TABLET 5 MG PO ×2 (12:58→21:37)
[2025-01-18] MEDS: VIT B12/Vit C/FA (Nephrovite) TABLET 1 TAB PO (12:58)
[2025-01-18] MEDS: METOPROLOL SUCCINATE XL 25 MG TABCR PO (13:00)
--- NOTE | 2025-01-18 17:04 | PD.RESPRO ---
Documentation for date of: 01/18/25 Subjective Subjective Interval history: No overnight events. Patient was getting dialysis at time of visit. No concerns voiced. Exam Vital Signs Temp Pulse Resp BP Pulse Ox O2 Del Method O2 Flow Rate 97.3 F 109 H 25 H 165/80 H 95 Nasal Cannula 3 01/18/25 16:00 01/18/25 16:00 01/18/25 16:00 01/18/25 16:00 01/18/25 16:00 01/18/25 16:00 01/18/25 16:00 Narrative Exam Patient was at dialysis session at time of visit. Objective Labs 01/19/25 07:43 01/19/25 07:43 Labs: Laboratory Results - last 24 hr 01/18/25 04:25 WBC 28.0 H RBC 3.27 L Hgb 9.6 L Hct 29.1 L MCV 89 MCH 29.4 MCHC 33.0 RDW Std Deviation 64.1 H Plt Count 105 L Neut % (Auto) 90 H Lymph % (Auto) 2 L [place] % (Auto) 6 Eos % (Auto) 0 Baso % (Auto) 0 Neut # (Auto) 25.3 H Lymph # (Auto) 0.6 L [place] # (Auto) 1.6 H Eos # (Auto) 0.0 Baso # (Auto) 0.1 Immature Gran # (Auto) 0.47 H Absolute Nucleated RBC 0.00 Immature Gran % 2 H Nucleated RBC % 0 Sodium 138 Potassium 4.5 Chloride 96 L Carbon Dioxide 22.3 Anion Gap 20 H BUN 68 H Creatinine 8.2 H* D Estim Creat Clear Calc 8.8 L eGFR 7 L* BUN/Creatinine Ratio 8 L Glucose 264 H D Calculated Osmolality 304 H Calcium 9.1 Corrected Calcium 9.7 Phosphorus 9.7 H Magnesium 2.6 Total Bilirubin 2.8 H AST 49 H ALT 48 Alkaline Phosphatase 222 H D Total Protein 6.7 Albumin 3.2 L Globulin 3.5 Albumin/Globulin Ratio 0.9 L ABG Interpretation ABG results: 01/15/25 19:57 VBG pH 7.48 VBG pCO2 27 L VBG pO2 54 VBG Base Excess -2 Quality Measures Quality Measures VTE prophylaxis Assessment & Plan Assessment Current Active Medications: Generic Name Dose Route Start Last Admin Trade Name Freq PRN Reason Stop Dose Admin Acetaminophen 650 mg 01/15/25 18:19 Acetaminophen 325 Mg Tablet PO 02/14/25 18:18 Q6H PRN Fever >101.5 Acetaminophen 650 mg 01/15/25 18:19 01/18/25 02:36 Acetaminophen 325 Mg Tablet PO 02/14/25 18:18 650 mg Q6H PRN Administration PAIN SCALE 1-3 (mild Hydrocodone Bitart/Acetaminophen 1 tab 01/16/25 07:55 01/18/25 09:12 Hydrocodone/Apap 5/325 Tablet PO 01/21/25 07:54 1 tab Q6HR PRN Administration PAIN SCALE 4-6 (Moderate Apixaban 5 mg 01/15/25 21:00 01/18/25 12:58 Apixaban 2.5 Mg Tablet PO 02/14/25 20:59 5 mg BID ADRIANA Administration Atorvastatin Calcium 80 mg 01/15/25 21:00 01/17/25 21:13 Atorvastatin Calcium 20 Mg Tablet PO 02/14/25 20:59 80 mg HS ADRIANA Administration Calcium Acetate 2,001 mg 01/16/25 12:00 01/18/25 17:00 Calcium Acetate 667 Mg Tablet PO 02/15/25 11:59 2,001 mg TIDWM ADRIANA Administration Dextrose 25 ml 01/15/25 23:44 Dextrose 50%-Water Inj 50 Ml Syringe IV 02/14/25 23:43 Q15MIN PRN BG 50-70 responsive npo pt Dextrose 50 ml 01/15/25 23:44 Dextrose 50%-Water Inj 50 Ml Syringe IV 02/14/25 23:43 Q15MIN PRN BG <50 OR BG <70 & pt unresponsive Gabapentin 100 mg 01/17/25 07:30 01/18/25 14:41 Gabapentin 100 Mg Capsule PO 02/16/25 07:29 100 mg TID ADRIANA Administration Glucagon 1 mg 01/15/25 23:44 Glucagon Inj 1 Mg Vial IM Q15MIN PRN BG <70, and no IV access Heparin Sodium (Porcine) 3,300 unit 01/15/25 16:07 01/16/25 18:06 Heparin Sod Inj 1000 Unit/Ml Vial 10 Ml INDWELLCAT 01/29/25 16:06 3,300 unit PRN PRN Administration DIALYSIS Hydromorphone HCl 0.25 mg 01/16/25 01:54 01/17/25 13:29 Hydromorphone Inj 2 Mg/Ml Vial IVP 01/21/25 01:53 0.25 mg Q4HR PRN Administration Pain 7-10 Ceftriaxone Sodium 2 gm/ 50 mls @ 100 mls/hr 01/17/25 09:59 01/18/25 12:58 Sodium Chloride IV 01/24/25 09:58 100 mls/hr QDAY ADRIANA Administration Insulin Human Lispro 0 unit 01/16/25 07:30 01/18/25 12:37 Insulin Lispro (Admelog) 1 Unit/0.01 Ml Unit SC 02/15/25 07:29 Not Given AC ADRIANA Protocol Metoprolol Succinate 25 mg 01/17/25 09:00 01/18/25 13:00 Metoprolol Succinate Xl 25 Mg Tabcr PO 02/16/25 08:59 25 mg QDAY ADRIANA Administration Ondansetron HCl 4 mg 01/15/25 18:19 Ondansetron Inj 2 Mg/Ml Inj 2 Ml IVP 02/14/25 18:18 Q6H PRN NAUSEA OR VOMITING Protocol Vitamin B Complex/Vit C/Folic Acid 1 tab 01/16/25 09:00 01/18/25 12:58 Vit B12/Vit C/Fa (Nephrovite) Tablet PO 02/15/25 08:59 1 tab QDAY ADRIANA Administration Plan Assessment 59 year old male with history of hypertension, diabetes, hyperlipidemia, ESRD admitted for acute encepahlopathy. #Acute Encephalopathy, improving #CVA - ruled out #Generalized weakness DDX: toxic/metabolic (ESRD on HD, missed HD sessions), infectious (UTI), hypertensive encephalopathy (sBPs reach 190s) In the ED, BUN was 122, Cr was 13.8, and eGFR was 4. Patient missed several HD appts. Teleneuro assessed patient and noted NIHSS score of 18. CT head w/o 01/15/25: Negative for acute hemorrhage, mass effect or midline shift CTA head/neck 01/15/25: No significant neck arterial stenoses. No critical vertebral artery stenoses in the neck. 60% stenosis intracranial left vertebral artery. Attenuated basilar artery which does fill with no large vessel occlusions involving the basilar artery or posterior cerebral branches. Heavy calcification juxtasellar portions internal carotid arteries, 50% stenosis on the right 60% stenosis on the left. No middle cerebral or anterior cerebral artery large vessel occlusions CXR: Moderate vascular congestion WBC elevated, UA + UTI, serum ammonia WNL, TSH WNL Carotid dopper (01/16/25): Right internal carotid artery demonstrates 10-30% stenosis. Left internal carotid artery demonstrates 0-10% stenosis. No right vertebral artery flow is depicted Brain MRI with MRA negative (01/16/25). Negative for acute hemorrhage mass effect or midline shift. No acute infarct Echo 01/17/2025: Left ventricle dimensions normal with evidence of severe left ventricle hypertrophy asymmetric septal hypertrophy with septal thickness of 20 mm with normal left ventricle function ejection fraction of 60%. Grade 1 diastolic dysfunction is present. The RV is normal in size and systolic function. Aortic Valve sclerosis calcification with evidence of mild aortic stenosis gradient of peak velocity 1.7 m/s Mitral annulus calcification with evidence of mild mitral regurgitation. Plan: - Neurology following. Appreciate Recs - Nephro following. Known to Dr. Garcia, follow recs - Continue calcium acetate for management of hyperphosphatemia (Phos 11.8 07/03 AM labs) - MRI spine findings could be seen in hyperparathyroidsm/Hyperphosphatemia/ESRD and not specific for metastasis. Neuro does not think contrasted study needed to evaluate further, rather treat hyperphophatemia vigorously. #Enterobacter cloacae Bacteremia #Enterobacter cloacae UTI Blood culture (+) x2 sources on 01/15/25 UA: WBC 217, Leuk (+) on 01/15/25 Urine Cx - pending Repeat blood cultures show GNR 2/2 If repeat blood cultures from today are positive, may need to consider taking out TDC Plan: Changed from Zoysn to Rocephin 2g IV qday based on microbiology sensitivities Repeat Blood cultures result pending from today Antipyretics and analgesia #HAGMA #Lactic Acidosis Lactate 3.3, AG 19 Likely related to Lactate HCO3- 24 Plan: - Trend Lactate q6h - Nephrology consulted, appreciate recs #Renal cyst - bilateral #Renal mass ruled out CT abdomen pelvis wo con Hepatosplenomegaly. Trace ascites. Tiny bilateral renal calculi. Recommend renal sonography follow-up to exclude 32 mm anterior right renal mass. Urinary bladder wall thickening, differential would include cystitis Renal US - ruled renal mass. Bilateral renal cortical thinning. Mild to moderate bilateral renal parenchymal scar formation. 5 mm left renal calculus Plan: - Monitor worsening clinical status (fever, new abdominal pain) #Hepatosplenomegaly #Cholelithiasis #Mild cirrhosis #? Ascites CT abdomen showed Liver mildly irregular in contour. Hepatomegaly 19 cm. Splenomegaly 14 cm. Cholelithiasis. Gallbladder wall appears mildly thickened. Plan: Monitor worsening clinical status (fever, new abdominal pain) Patient to f/u with PCP for further w/u of cirrhosis Repeat Abd US limited #Insulin Independent Type II Diabetes mellitus type 2 Hgb A1C 6.1 (down from 6.9). Well controlled. Patient is not on diabetic meds at home, mentions diet-controlled. Glucose 173 in AM - patient does have bacteremia Plan: ? Sliding scale insulin ? Hypoglycemic protocol in place ? Blood sugar checks with meals #Paroxysmal A-fib, rate controlled [id number]: 4 HAS-BLED:3 Plan: - Eliquis 5 mg BID - Keep Mag > 2 and K > 4 - Telemetry - Home Metoprolol XL 25 mg qday #Hyperlipidemia LDL 83 Plan: - Continue home Atorvastatin 80mg daily #Health Maintenance Disposition: Telemetry DVT prophylaxis: Eliquis 5 mg BID GI prophylaxis: None indicated at this time Diet: Renal CODE STATUS: DNR Case discussed with my attending Dr. Cierra Romero MD PGY-1 Attending Provider Attestation/Addendum Patient was seen and examined after hemodialysis. RN at bedside. The patient complains of chills. He is tachycardic. He has A-fib. Patient has bacteremia with Enterobacter. He has AV fistula. He gets hemodialysis. The patient had hemodialysis this morning. He has stable blood pressure. He is afebrile. Will continue current antibiotic treatment. I discussed with and supervised the resident physician who took care of this patient. I agree with the assessment and plan as above.
[2025-01-18] MEDS: ATORVASTATIN CALCIUM 20 MG TABLET 80 MG PO (21:37)
--- NOTE | 2025-01-18 23:59 | VVPN_ITS ---
Telemedicine visit statement This visit was conducted with the use of phone was obtained on 01/18/25 at 2359. Documentation for date of: 01/18/25 Subjective Subjective Interval history: patient is in telemetry today. No new symptoms/worsening pain today. Resting at this time. He tries to be up during meal times Virtual exam Vital Signs Temp Pulse Resp BP Pulse Ox O2 Del Method O2 Flow Rate 96.8 F 100 24 H 122/64 93 L Nasal Cannula 3 01/18/25 20:00 01/18/25 20:00 01/18/25 20:00 01/18/25 20:00 01/18/25 20:00 01/18/25 20:00 01/18/25 20:00 Objective Labs 01/18/25 04:25 01/18/25 04:25 Labs: Laboratory Results - last 24 hr 01/18/25 04:25 WBC 28.0 H RBC 3.27 L Hgb 9.6 L Hct 29.1 L MCV 89 MCH 29.4 MCHC 33.0 RDW Std Deviation 64.1 H Plt Count 105 L Neut % (Auto) 90 H Lymph % (Auto) 2 L [place] % (Auto) 6 Eos % (Auto) 0 Baso % (Auto) 0 Neut # (Auto) 25.3 H Lymph # (Auto) 0.6 L [place] # (Auto) 1.6 H Eos # (Auto) 0.0 Baso # (Auto) 0.1 Immature Gran # (Auto) 0.47 H Absolute Nucleated RBC 0.00 Immature Gran % 2 H Nucleated RBC % 0 Sodium 138 Potassium 4.5 Chloride 96 L Carbon Dioxide 22.3 Anion Gap 20 H BUN 68 H Creatinine 8.2 H* D Estim Creat Clear Calc 8.8 L eGFR 7 L* BUN/Creatinine Ratio 8 L Glucose 264 H D Calculated Osmolality 304 H Calcium 9.1 Corrected Calcium 9.7 Phosphorus 9.7 H Magnesium 2.6 Total Bilirubin 2.8 H AST 49 H ALT 48 Alkaline Phosphatase 222 H D Total Protein 6.7 Albumin 3.2 L Globulin 3.5 Albumin/Globulin Ratio 0.9 L ABG Interpretation ABG results: 01/15/25 19:57 VBG pH 7.48 VBG pCO2 27 L VBG pO2 54 VBG Base Excess -2 Assessment & Plan Problem List (1) Acute encephalopathy: Status: Acute Assessment and plan: resolving encourage sitting up in the side of the bed and ambulate with PT. (2) End-stage renal disease (ESRD): Status: Chronic Assessment and plan: on dialysis (3) HTN (hypertension): Status: Chronic Assessment and plan: continue metoprolol (4) Diabetes mellitus: Status: Chronic Assessment and plan: continue Insulin per sliding scale. (5) Myalgia: Status: Acute Assessment and plan: CK: normal continue with GP tid MRI spine findings could be seen in hyperparathyroidsm/Hyperphosphatemia/ESRD and not specific for metastasis. I do not think that patient would need contrasted study to evaluate further, rather treat hyperphophatemia vigorously.
[2025-01-19] VITALS (15 sets, daily range): BP systolic 93–157; BP diastolic 52–87; PULSE 82–111; RESP 17–98; TEMP 35.9–38.6; O2SAT 93–98; BMI 26.7
[2025-01-19] MEDS: GABAPENTIN 100 MG CAPSULE PO (05:53)
--- NOTE | 2025-01-19 07:46 | PD.RESEVENT ---
Documentation for date of: 01/19/25 Event Note Event Note: A rapid response was called at 7:40 AM due to patient's temperature of 100.6?F and a change in their ability to answer questions. At the time of the rapid response, vital signs were: temperature 100.6?F, heart rate 110, respiratory rate 24, and oxygen saturation 94% on 3 L via nasal cannula. Assessment revealed the patient had ANOX4, following commands, responding verbally, NAD, no focal neurological deficits. All other physical exam findings were unremarkable. The antibiotic regimen was escalated from Ceftriaxone to Zosyn to provide broader coverage. Patient likely was still waking up from sleep. Labs ordered, LA was negative, repeat blood Cx. We will closely follow up on these lab results and make further adjustments to the care plan as indicated. Leif Romero MD PGY-1
[2025-01-19] MEDS: CALCIUM ACETATE 667 MG TABLET 2001 MG PO ×3 (07:51→17:42)
[2025-01-19] MEDS: INSULIN LISPRO (AdmeLOG) 1 UNIT/0.01 ML UNIT SC ×3 (07:51→16:34)
[2025-01-19] MEDS: ACETAMINOPHEN 325 MG TABLET 650 MG PO ×2 (07:51→23:09)
[2025-01-19 07:54] LABS: Lactate (Lactic Acid) 1.8 mMol/L (0.4-2.0)
[2025-01-19 08:09] LABS: Basophils # (Auto) 0.0 Thou/mm3 (0.0-0.2); Basophils % (Auto) 0 % (0-2.5); Eosinophils # (Auto) 0.0 Thou/mm3 (0.0-0.5); Eosinophils % (Auto) 0 % (0-10); Hematocrit 29.9 % (41.0-53.0); Hemoglobin 10.2 g/dL (13.5-16.0); Immature Granulocytes Auto 0.50 Thou/mm3 (0.00-0.00); Lymphocytes # (Auto) 0.5 Thou/mm3 (1.0-4.8); Lymphocytes % (Auto) 2 % (10-50); Mean Corpuscular HGB Conc 34.1 g/dl (31.0-37.0); Mean Corpuscular Hemoglobin 29.9 pg (25.0-35.0); Mean Corpuscular Volume 88 fL (80-100); Monocytes # (Auto) 1.7 Thou/mm3 (0.0-0.8); Monocytes % (Auto) 6 % (0-12); Neutrophils # (Auto) 24.5 Thou/mm3 (1.8-7.7); Neutrophils % (Auto) 90 % (37-80); Nucleated Red Blood Cell # 0.00 Thou/mm3 (0.00-0.00); Nucleated Red Blood Cell % 0 /100 WBC (0); Platelet Count 150 Thou/mm3 (140-440); RDW Standard Deviation 62.3 fL (35.1-43.9); Red Blood Count 3.41 Miln/mm3 (4.50-5.90); White Blood Count 27.4 Thou/mm3 (3.8-10.6)
[2025-01-19 08:35] LABS: Alanine Aminotransferase 74 U/L (10-49); Albumin, Serum 3.7 gm/dL (3.5-5.0); Albumin/Globulin Ratio 0.9 (1.2-2.2); Alkaline Phosphatase 242 U/L (46-116); Anion Gap 17 (7-16); Aspartate Amino Transferase 74 U/L (0-34); BUN/Creatinine Ratio 8 Ratio (12-20); Bilirubin,Total 2.9 mg/dL (0.3-1.2); Blood Urea Nitrogen 49 mg/dL (9-23); Calcium 9.4 mg/dL (8.3-10.6); Calcium (Corrected) 9.6 mg/dL (8.5-10.1); Carbon Dioxide 24.2 mMol/L (20.0-31.0); Chloride 94 mMol/L (98-107); Creatinine (Component) 6.4 mg/dL (0.6-1.3); Estimated Creatinine Clearance 11.0 mL/min (>60); Globulin 4.1 gm/dL (2.3-3.5); Glucose 174 mg/dL (74-106); Osmolality,Calculated 287 (275-295); Potassium 5.1 mMol/L (3.4-5.1); Sodium 135 mMol/L (136-145); Total Protein 7.8 gm/dL (5.7-8.2); eGFR 9 See Note
[2025-01-19] MEDS: VIT B12/Vit C/FA (Nephrovite) TABLET 1 TAB PO (08:46)
[2025-01-19] MEDS: APIXABAN 2.5 MG TABLET 5 MG PO ×2 (08:47→20:44)
[2025-01-19] MEDS: PIPER/TAZO 3.375 GM PREMIX 3.375 GM/50 ML BAG IV (08:48)
--- NOTE | 2025-01-19 10:03 | PD.NEPHPROG ---
Documentation for date of: 01/19/25 Subjective Subjective Interval history: Pt is seen and examined pt is sleepy Exam Vital Signs Temp Pulse Resp BP Pulse Ox O2 Del Method O2 Flow Rate 100.1 F 96 19 93/52 L 94 L Nasal Cannula 3 01/19/25 08:52 01/19/25 08:54 01/19/25 08:01 01/19/25 08:54 01/19/25 08:00 01/19/25 08:00 01/19/25 08:01 Narrative Exam no acute distress chest melissa basal crackles abdomen: soft Objective Labs 01/21/25 04:40 01/21/25 04:40 Labs: Laboratory Results - last 24 hr 01/19/25 07:43 WBC 27.4 H RBC 3.41 L Hgb 10.2 L Hct 29.9 L MCV 88 MCH 29.9 MCHC 34.1 RDW Std Deviation 62.3 H Plt Count 150 D Neut % (Auto) 90 H Lymph % (Auto) 2 L [place] % (Auto) 6 Eos % (Auto) 0 Baso % (Auto) 0 Neut # (Auto) 24.5 H Lymph # (Auto) 0.5 L [place] # (Auto) 1.7 H Eos # (Auto) 0.0 Baso # (Auto) 0.0 Immature Gran # (Auto) 0.50 H Absolute Nucleated RBC 0.00 Immature Gran % 2 H Nucleated RBC % 0 Sodium 135 L Potassium 5.1 D Chloride 94 L Carbon Dioxide 24.2 Anion Gap 17 H BUN 49 H Creatinine 6.4 H* D Estim Creat Clear Calc 11.0 L eGFR 9 L* BUN/Creatinine Ratio 8 L Glucose 174 H D Calculated Osmolality 287 Lactic Acid 1.8 Calcium 9.4 Corrected Calcium 9.6 Total Bilirubin 2.9 H AST 74 H ALT 74 H Alkaline Phosphatase 242 H D Total Protein 7.8 Albumin 3.7 D Globulin 4.1 H Albumin/Globulin Ratio 0.9 L ABG Interpretation ABG results: 01/15/25 19:57 VBG pH 7.48 VBG pCO2 27 L VBG pO2 54 VBG Base Excess -2 Assessment & Plan Assessment and plan (1) Acute encephalopathy: Status: Acute (2) End-stage renal disease (ESRD): Status: Chronic Assessment and plan: c/w dialysis 3 times a week counselled to be compliant with dialysis (3) HTN (hypertension): Status: Chronic (4) Diabetes mellitus: Status: Chronic (5) Myalgia: Status: Acute
--- NOTE | 2025-01-19 10:13 | XR_ITS ---
Examination: CT abdomen and pelvis without contrast. Coronal 3-D reconstructions. Sagittal 2-D reconstructions. Indications: Urinary tract infections this week Date and time of exam:January 19, 2025, 1326 hrs., Comparison January 15, 2025 CTDI: vol (mGy): 10.2 DLP: (mGycm): 474 Technique: Axial images of the abdomen have been obtained, 3 mm slice thickness Intravenous contrast material has not been administered. Low dose protocols were performed. One or more of the following dose reduction techniques were used; automated exposure control, adjustment of the mA and/or KV according to patient size, use of iterative reconstruction technique. Findings: Mild to moderate enlargement cardiac contour, Liver irregular in contour. Cholelithiasis No pancreatic or adrenal mass Bilateral subcentimeter renal calculi 32 mm anterior right renal mass No hydronephrosis or ureteral calculi Aorta normal size Normal appendix No abdominal or pelvic abscess Mild prostatomegaly 4.6 cm Advanced disc narrowing L5-S1 Impression: Cirrhosis versus primary hepatocellular disease. Cholelithiasis. Recommend MRI abdomen follow-up pre and postcontrast to assess 32 mm anterior right renal mass No abdominal or pelvic abscess
[2025-01-19] MEDS: HYDROcodone/APAP 5/325 TABLET 1 TAB PO (11:01)
[2025-01-19] MEDS: METOPROLOL SUCCINATE XL 25 MG TABCR 12.5 MG PO (12:17)
--- NOTE | 2025-01-19 14:03 | ESPR_ITS ---
Documentation for date of: 01/19/25 Subjective Subjective Interval history: Patient seen at bedside. No overnight events. Rapid response was called by nurse at 7:40AM today for T of 100.6 and not answering questions. Patient had dialysis yesterday. Will be on MWF HD schedule. Exam Vital Signs Temp Pulse Resp BP Pulse Ox O2 Del Method O2 Flow Rate 100.6 F H 106 H 24 H 138/71 H 94 L Nasal Cannula 3 01/19/25 13:49 01/19/25 13:49 01/19/25 13:49 01/19/25 13:49 01/19/25 13:49 01/19/25 12:00 01/19/25 13:49 Narrative Exam GENERAL APPEARANCE: alert & oriented x4, no acute distress, R tunneled dialysis catheter present HEENT: Normocephalic, atraumatic; pupils equal, round, reactive to light; EOMI; mucous membranes pink, moist; oropharynx clear NECK: Supple LUNGS: CTABL; no wheezes, no rales, no rhonchi HEART: Regular rate, regular rhythm; normal S1, S2; no murmurs ABDOMEN: mildly distended; normal BS; soft, no tenderness, no guarding, no rebound; no masses, no organomegaly, no hernia EXTREMITIES: atraumatic; no edema NEUROLOGIC: no facial droop, no focal neurological findings PSYCHIATRIC: appropriate mood and affect SKIN: warm, dry, normal color; no rashes Objective Labs 01/19/25 07:43 01/19/25 07:43 Labs: Laboratory Results - last 24 hr 01/19/25 07:43 WBC 27.4 H RBC 3.41 L Hgb 10.2 L Hct 29.9 L MCV 88 MCH 29.9 MCHC 34.1 RDW Std Deviation 62.3 H Plt Count 150 D Neut % (Auto) 90 H Lymph % (Auto) 2 L [place] % (Auto) 6 Eos % (Auto) 0 Baso % (Auto) 0 Neut # (Auto) 24.5 H Lymph # (Auto) 0.5 L [place] # (Auto) 1.7 H Eos # (Auto) 0.0 Baso # (Auto) 0.0 Immature Gran # (Auto) 0.50 H Absolute Nucleated RBC 0.00 Immature Gran % 2 H Nucleated RBC % 0 Sodium 135 L Potassium 5.1 D Chloride 94 L Carbon Dioxide 24.2 Anion Gap 17 H BUN 49 H Creatinine 6.4 H* D Estim Creat Clear Calc 11.0 L eGFR 9 L* BUN/Creatinine Ratio 8 L Glucose 174 H D Calculated Osmolality 287 Lactic Acid 1.8 Calcium 9.4 Corrected Calcium 9.6 Total Bilirubin 2.9 H AST 74 H ALT 74 H Alkaline Phosphatase 242 H D Total Protein 7.8 Albumin 3.7 D Globulin 4.1 H Albumin/Globulin Ratio 0.9 L ABG Interpretation ABG results: 01/15/25 19:57 VBG pH 7.48 VBG pCO2 27 L VBG pO2 54 VBG Base Excess -2 Quality Measures Quality Measures VTE prophylaxis Assessment & Plan Assessment Current Active Medications: Generic Name Dose Route Start Last Admin Trade Name Freq PRN Reason Stop Dose Admin Acetaminophen 650 mg 01/15/25 18:19 01/19/25 07:51 Acetaminophen 325 Mg Tablet PO 02/14/25 18:18 650 mg Q6H PRN Administration Fever >101.5 Acetaminophen 650 mg 01/15/25 18:19 01/18/25 02:36 Acetaminophen 325 Mg Tablet PO 02/14/25 18:18 650 mg Q6H PRN Administration PAIN SCALE 1-3 (mild Hydrocodone Bitart/Acetaminophen 1 tab 01/16/25 07:55 01/19/25 11:01 Hydrocodone/Apap 5/325 Tablet PO 01/21/25 07:54 1 tab Q6HR PRN Administration PAIN SCALE 4-6 (Moderate Apixaban 5 mg 01/19/25 09:00 01/19/25 08:47 Apixaban 2.5 Mg Tablet PO 02/18/25 08:59 5 mg BID ADRIANA Administration Atorvastatin Calcium 80 mg 01/15/25 21:00 01/18/25 21:37 Atorvastatin Calcium 20 Mg Tablet PO 02/14/25 20:59 80 mg HS ADRIANA Administration Calcium Acetate 2,001 mg 01/16/25 12:00 01/19/25 12:03 Calcium Acetate 667 Mg Tablet PO 02/15/25 11:59 2,001 mg TIDWM ADRIANA Administration Dextrose 25 ml 01/15/25 23:44 Dextrose 50%-Water Inj 50 Ml Syringe IV 02/14/25 23:43 Q15MIN PRN BG 50-70 responsive npo pt Dextrose 50 ml 01/15/25 23:44 Dextrose 50%-Water Inj 50 Ml Syringe IV 02/14/25 23:43 Q15MIN PRN BG <50 OR BG <70 & pt unresponsive Glucagon 1 mg 01/15/25 23:44 Glucagon Inj 1 Mg Vial IM Q15MIN PRN BG <70, and no IV access Heparin Sodium (Porcine) 3,300 unit 01/15/25 16:07 01/16/25 18:06 Heparin Sod Inj 1000 Unit/Ml Vial 10 Ml INDWELLCAT 01/29/25 16:06 3,300 unit PRN PRN Administration DIALYSIS Hydromorphone HCl 0.25 mg 01/16/25 01:54 01/17/25 13:29 Hydromorphone Inj 2 Mg/Ml Vial IVP 01/21/25 01:53 0.25 mg Q4HR PRN Administration Pain 7-10 Piperacillin/Tazobactam/Dextrose 3.375 gm in 50 mls @ 12.5 mls/hr 01/19/25 21:00 Zosyn IV 01/26/25 20:59 Q12HR [facility] Insulin Human Lispro 0 unit 01/16/25 07:30 01/19/25 12:03 Insulin Lispro (Admelog) 1 Unit/0.01 Ml Unit SC 02/15/25 07:29 1 unit AC [facility] Administration Protocol Metoprolol Succinate 25 mg 01/17/25 09:00 01/19/25 08:54 Metoprolol Succinate Xl 25 Mg Tabcr PO 02/16/25 08:59 Not Given QDAY [facility] Ondansetron HCl 4 mg 01/15/25 18:19 Ondansetron Inj 2 Mg/Ml Inj 2 Ml IVP 02/14/25 18:18 Q6H PRN NAUSEA OR VOMITING Protocol Vitamin B Complex/Vit C/Folic Acid 1 tab 01/16/25 09:00 01/19/25 08:46 Vit B12/Vit C/Fa (Nephrovite) Tablet PO 02/15/25 08:59 1 tab QDAY [facility] Administration Plan Assessment 59 year old male with history of hypertension, diabetes, hyperlipidemia, ESRD admitted for acute encepahlopathy. #Enterobacter cloacae Bacteremia #Enterobacter cloacae UTI A rapid response was called today at 7:40AM for nursing concerns of T 100.6 and not answering questions - see event note for detail Blood culture (+) x2 sources on 01/15/25 UA: WBC 217, Leuk (+) on 01/15/25 Urine Cx - pending Repeat blood cultures show GNR 2/2 Blood cultures drawn today as well Plan: Changed Rocephin to Zoysn 2.25g q6h Added Vancomycin Repeat Blood cultures result pending from today Antipyretics and analgesia #Acute Encephalopathy, improving #CVA - ruled out #Generalized weakness DDX: toxic/metabolic (ESRD on HD, missed HD sessions), infectious (UTI), hypertensive encephalopathy (sBPs reach 190s) In the ED, BUN was 122, Cr was 13.8, and eGFR was 4. Patient missed several HD appts. Teleneuro assessed patient and noted NIHSS score of 18. CT head w/o 01/15/25: Negative for acute hemorrhage, mass effect or midline shift CTA head/neck 01/15/25: No significant neck arterial stenoses. No critical vertebral artery stenoses in the neck. 60% stenosis intracranial left vertebral artery. Attenuated basilar artery which does fill with no large vessel occlusions involving the basilar artery or posterior cerebral branches. Heavy calcification juxtasellar portions internal carotid arteries, 50% stenosis on the right 60% stenosis on the left. No middle cerebral or anterior cerebral artery large vessel occlusions CXR: Moderate vascular congestion WBC elevated, UA + UTI, serum ammonia WNL, TSH WNL Carotid dopper (01/16/25): Right internal carotid artery demonstrates 10-30% stenosis. Left internal carotid artery demonstrates 0-10% stenosis. No right vertebral artery flow is depicted Brain MRI with MRA negative (01/16/25). Negative for acute hemorrhage mass effect or midline shift. No acute infarct Echo 01/17/2025: Left ventricle dimensions normal with evidence of severe left ventricle hypertrophy asymmetric septal hypertrophy with septal thickness of 20 mm with normal left ventricle function ejection fraction of 60%. Grade 1 diastolic dysfunction is present. The RV is normal in size and systolic function. Aortic Valve sclerosis calcification with evidence of mild aortic stenosis gradient of peak velocity 1.7 m/s Mitral annulus calcification with evidence of mild mitral regurgitation. Plan: - Neurology following. Appreciate Recs - Nephro following. Known to Dr. Garcia, follow recs. HD [facility] schdule - Continue calcium acetate for management of hyperphosphatemia (Phos 9 07/06 AM labs) - MRI spine findings could be seen in hyperparathyroidsm/Hyperphosphatemia/ESRD and not specific for metastasis. Neuro does not think contrasted study needed to evaluate further, rather treat hyperphophatemia vigorously. #HAGMA - improving #Lactic Acidosis - improving Lactate 1.8 (3.3), AG 17 (19) Likely related to Lactate HCO3- 24 Plan: - Trend Lactate q6h - Nephrology consulted, appreciate recs #Renal cyst - bilateral #Renal mass ruled out CT abdomen pelvis wo con Hepatosplenomegaly. Trace ascites. Tiny bilateral renal calculi. Recommend renal sonography follow-up to exclude 32 mm anterior right renal mass. Urinary bladder wall thickening, differential would include cystitis Renal US - ruled renal mass. Bilateral renal cortical thinning. Mild to moderate bilateral renal parenchymal scar formation. 5 mm left renal calculus Plan: - Monitor worsening clinical status (fever, new abdominal pain) #Hepatosplenomegaly #Cholelithiasis #Mild cirrhosis #?Ascites CT abdomen showed Liver mildly irregular in contour. Hepatomegaly 19 cm. Splenomegaly 14 cm. Cholelithiasis. Gallbladder wall appears mildly thickened. Plan: Monitor worsening clinical status (fever, new abdominal pain) Patient to f/u with PCP for further w/u of cirrhosis Repeat Abd US limited #Insulin Independent Type II Diabetes mellitus type 2 Hgb A1C 6.1 (down from 6.9). Well controlled. Patient is not on diabetic meds at home, mentions diet-controlled. Glucose 173 in AM - patient does have bacteremia Plan: ? Sliding scale insulin ? Hypoglycemic protocol in place ? Blood sugar checks with meals #Paroxysmal A-fib, rate controlled [id number]: 4 HAS-BLED:3 Plan: - Eliquis 5 mg BID - Keep Mag > 2 and K > 4 - Telemetry - Home Metoprolol XL 25 mg qday #Hyperlipidemia LDL 83 Plan: - Continue home Atorvastatin 80mg daily #Health Maintenance Disposition: Telemetry DVT prophylaxis: Eliquis 5 mg BID GI prophylaxis: None indicated at this time Diet: Renal CODE STATUS: DNR Case discussed with my attending Dr. Cierra Romero MD PGY-1 Attending Provider Attestation/Addendum Patient seen with housestaff. She continues to have fever. Antibiotic coverage changed to IV Zosyn. Patient has Enterobacter in blood culture. He has end-stage renal disease. He has tunneled dialysis catheter. The patient is arousable. Appears acutely ill. Will get CT scan of the abdomen to look for source of infection I discussed with and supervised the resident physician who took care of this patient. I agree with the assessment and plan as above.
[2025-01-19] MEDS: PIPERACILLIN/TAZO 2.25GM INJ 2.25 GM in SODIUM CHLORIDE 0.9% (Popper) 50 ML IV ×2 (17:55→23:09)
[2025-01-19 18:27] LABS: Lactate (Lactic Acid) 2.9 mMol/L (0.4-2.0)
[2025-01-19 18:52] LABS: Phosphorous 9.0 mg/dL (2.4-5.1)
[2025-01-19] MEDS: VANCOMYCIN/NS 1 GM IVPB 200 ML IV (18:54)
[2025-01-19] MEDS: ATORVASTATIN CALCIUM 20 MG TABLET 80 MG PO (20:43)
[2025-01-19 21:24] LABS: Reflex Lactate? Y
[2025-01-19 21:34] LABS: Parathyroid Hormone Intact 194.9 pg/ml (18.5-88.0)
[2025-01-19 22:21] LABS: Lactic Acid, 3 HR 2.2 mMol/L (0.4-2.0)
--- NOTE | 2025-01-19 23:56 | PD.NEUROPROG ---
Documentation for date of: 01/19/25 Subjective Subjective Interval history: Patient was seen in telemetry today. Continues to complain of diffuse aches and pains especially in his both lower extremities. Reportedly sleepy most of the time, he had a spike in temperature with tachycardia this morning and had a rapid response. Exam - Neurology Vital Signs Temp Pulse Resp BP Pulse Ox O2 Del Method O2 Flow Rate 101.5 F H 101 H 19 119/63 95 Nasal Cannula 2 01/19/25 23:09 01/19/25 20:00 01/19/25 20:00 01/19/25 20:00 01/19/25 20:00 01/19/25 20:00 01/19/25 20:00 Narrative Exam GENERAL APPEARANCE: Well hydrated, well-nourished in no acute distress. HEENT: Normocephalic, atraumatic, extraocular movements intact. Pupils: Equal reacting to light and accommodation NECK: Supple, no JVD or bruits. CARDIOVASULAR: Heart: S1, S2 heard, regular without S3-S4 or murmur no rubs or gallops. LUNGS/CHEST: Clear to auscultation bilaterally. No rails, rhonchi, or wheezing. Normal inspection. ABDOMEN: Soft, nontender, with normal bowel sounds. No pulsatile masses. No rebound, rigidity, or guarding. Normal inspection and palpation. EXTREMITIES: Normal inspection and palpation. No edema, clubbing or cyanosis. He does have asterixis. SKIN: Warm and dry without rashes. Normal inspection. MUSCULOSKELETAL: No cervical, thoracic, lumbar or midline bony tenderness. Normal inspection. NEURO: Lethargic, but arousable. cranial nerves: II through XII grossly intact. Speech and language: Normal with no dysarthria or dysphasia. Motor system: Tone and bulk: Normal: Strength: Moves all 4 extremities; No pronator drift noted. Deep tendon reflexes: 1+ bilaterally symmetrical. Plantar reflex: Downgoing bilaterally. Sensory system: Intact to pinprick sensation bilaterally. Rest of the exam: Limited, no signs of meningeal irritation noted. PSYCHIATRIC: Normal mood and affect. Objective Labs 01/20/25 04:58 01/19/25 07:43 Labs: Laboratory Results - last 24 hr 01/18/25 01/19/25 01/19/25 04:25 07:43 18:06 WBC 27.4 H RBC 3.41 L Hgb 10.2 L Hct 29.9 L MCV 88 MCH 29.9 MCHC 34.1 RDW Std Deviation 62.3 H Plt Count 150 D Neut % (Auto) 90 H Lymph % (Auto) 2 L [place] % (Auto) 6 Eos % (Auto) 0 Baso % (Auto) 0 Neut # (Auto) 24.5 H Lymph # (Auto) 0.5 L [place] # (Auto) 1.7 H Eos # (Auto) 0.0 Baso # (Auto) 0.0 Immature Gran # (Auto) 0.50 H Absolute Nucleated RBC 0.00 Immature Gran % 2 H Nucleated RBC % 0 Sodium 135 L Potassium 5.1 D Chloride 94 L Carbon Dioxide 24.2 Anion Gap 17 H BUN 49 H Creatinine 6.4 H* D Estim Creat Clear Calc 11.0 L eGFR 9 L* BUN/Creatinine Ratio 8 L Glucose 174 H D Calculated Osmolality 287 Lactic Acid 1.8 2.9 H Calcium 9.4 Corrected Calcium 9.6 Phosphorus 9.0 H Total Bilirubin 2.9 H AST 74 H ALT 74 H Alkaline Phosphatase 242 H D Total Protein 7.8 Albumin 3.7 D Globulin 4.1 H Albumin/Globulin Ratio 0.9 L PTH Intact 194.9 H 01/19/25 22:13 WBC RBC Hgb Hct MCV MCH MCHC RDW Std Deviation Plt Count Neut % (Auto) Lymph % (Auto) [place] % (Auto) Eos % (Auto) Baso % (Auto) Neut # (Auto) Lymph # (Auto) [place] # (Auto) Eos # (Auto) Baso # (Auto) Immature Gran # (Auto) Absolute Nucleated RBC Immature Gran % Nucleated RBC % Sodium Potassium Chloride Carbon Dioxide Anion Gap BUN Creatinine Estim Creat Clear Calc eGFR BUN/Creatinine Ratio Glucose Calculated Osmolality Lactic Acid 2.2 H Calcium Corrected Calcium Phosphorus Total Bilirubin AST ALT Alkaline Phosphatase Total Protein Albumin Globulin Albumin/Globulin Ratio PTH Intact ABG Interpretation ABG results: 01/15/25 19:57 VBG pH 7.48 VBG pCO2 27 L VBG pO2 54 VBG Base Excess -2 Assessment & Plan Assessment and plan (1) Acute encephalopathy: Status: Acute Assessment and plan: Will consider doing lumbar puncture if spikes temp again (2) End-stage renal disease (ESRD): Status: Chronic Assessment and plan: On dialysis (3) HTN (hypertension): Status: Chronic Assessment and plan: Continue with the blood pressure management (4) Diabetes mellitus: Status: Chronic Assessment and plan: Continue to check fingerstick glucose and follow sliding scale insulin per protocol (5) Myalgia: Status: Acute Assessment and plan: Continue with the [place] as needed but lowered the dose to half a tablet and discontinue gabapentin, not sure what is causing the lethargy
[2025-01-20] VITALS (28 sets, daily range): BP systolic 81–171; BP diastolic 48–81; PULSE 65–117; RESP 16–25; TEMP 36.1–37.9; O2SAT 97–99; BMI 26.7
[2025-01-20] MEDS: PIPERACILLIN/TAZO 2.25GM INJ 2.25 GM in SODIUM CHLORIDE 0.9% (Popper) 50 ML IV (05:30)
[2025-01-20 06:20] LABS: Basophils # (Auto) 0.0 Thou/mm3 (0.0-0.2); Basophils % (Auto) 0 % (0-2.5); Eosinophils # (Auto) 0.1 Thou/mm3 (0.0-0.5); Eosinophils % (Auto) 0 % (0-10); Hematocrit 27.3 % (41.0-53.0); Hemoglobin 9.0 g/dL (13.5-16.0); Immature Granulocytes Auto 0.41 Thou/mm3 (0.00-0.00); Lymphocytes # (Auto) 0.7 Thou/mm3 (1.0-4.8); Lymphocytes % (Auto) 2 % (10-50); Mean Corpuscular HGB Conc 33.0 g/dl (31.0-37.0); Mean Corpuscular Hemoglobin 29.8 pg (25.0-35.0); Mean Corpuscular Volume 90 fL (80-100); Monocytes # (Auto) 2.2 Thou/mm3 (0.0-0.8); Monocytes % (Auto) 8 % (0-12); Neutrophils # (Auto) 24.4 Thou/mm3 (1.8-7.7); Neutrophils % (Auto) 88 % (37-80); Nucleated Red Blood Cell # 0.00 Thou/mm3 (0.00-0.00); Nucleated Red Blood Cell % 0 /100 WBC (0); Platelet Count 141 Thou/mm3 (140-440); RDW Standard Deviation 65.1 fL (35.1-43.9); Red Blood Count 3.02 Miln/mm3 (4.50-5.90); White Blood Count 27.8 Thou/mm3 (3.8-10.6)
[2025-01-20 06:43] LABS: Alanine Aminotransferase 100 U/L (10-49); Albumin, Serum 3.4 gm/dL (3.5-5.0); Albumin/Globulin Ratio 0.9 (1.2-2.2); Alkaline Phosphatase 221 U/L (46-116); Anion Gap 17 (7-16); Aspartate Amino Transferase 137 U/L (0-34); BUN/Creatinine Ratio 8 Ratio (12-20); Bilirubin,Total 2.5 mg/dL (0.3-1.2); Blood Urea Nitrogen 63 mg/dL (9-23); Calcium 9.2 mg/dL (8.3-10.6); Calcium (Corrected) 9.7 mg/dL (8.5-10.1); Carbon Dioxide 24.3 mMol/L (20.0-31.0); Chloride 92 mMol/L (98-107); Creatinine (Component) 8.0 mg/dL (0.6-1.3); Estimated Creatinine Clearance 8.8 mL/min (>60); Globulin 4.0 gm/dL (2.3-3.5); Glucose 224 mg/dL (74-106); Magnesium 2.6 mg/dL (1.6-2.6); Osmolality,Calculated 291 (275-295); Phosphorous 9.0 mg/dL (2.4-5.1); Potassium 4.9 mMol/L (3.4-5.1); Sodium 133 mMol/L (136-145); Total Protein 7.4 gm/dL (5.7-8.2); Vancomycin,Random 28.3 mcg/mL; eGFR 7 See Note
[2025-01-20] MEDS: ACETAMINOPHEN 325 MG TABLET 650 MG PO (07:31)
[2025-01-20] MEDS: CALCIUM ACETATE 667 MG TABLET 2001 MG PO ×2 (07:31→11:31)
[2025-01-20] MEDS: HYDROcodone/APAP 5/325 TABLET 0.5 TAB PO (07:35)
[2025-01-20] MEDS: INSULIN LISPRO (AdmeLOG) 1 UNIT/0.01 ML UNIT SC ×2 (08:33→11:31)
[2025-01-20] MEDS: VIT B12/Vit C/FA (Nephrovite) TABLET 1 TAB PO (08:33)
[2025-01-20] MEDS: METOPROLOL SUCCINATE XL 25 MG TABCR PO (08:33)
[2025-01-20] MEDS: APIXABAN 2.5 MG TABLET 5 MG PO ×2 (08:34→20:51)
[2025-01-20 10:00] LABS: Free T4 (Free Thyroxine) 1.34 ng/dL (0.89-1.76); Thyroid Stimulating Hormone 2.40 uIU/mL (0.55-4.78)
--- NOTE | 2025-01-20 10:39 | PC.SS ---
SS spoke to pt Son, Ric, , in regards to SNF options. At this time, [facility], [facility] and [facility] have accepted pt. [facility] also have accepted but thy prefer in [place]. Ric requested some time to discuss with siblings and stated he would call SS back by this late afternoon.
--- NOTE | 2025-01-20 11:04 | ESPR_ITS ---
Subjective Subjective Interval history: pt with e bacter bacteremia that cleared. bc neg 01/18/25 Exam Vital Signs Temp Pulse Resp BP Pulse Ox O2 Del Method O2 Flow Rate 97.9 F 91 25 H 165/79 H 99 Room Air 2 01/20/25 08:00 01/20/25 08:33 01/20/25 08:00 01/20/25 08:33 01/20/25 08:00 01/20/25 08:00 01/20/25 07:11 Narrative Exam benign exam. hd line ok Objective - Internal Medicine Labs 01/20/25 04:58 01/20/25 04:58 Labs: Laboratory Results - last 24 hr 01/18/25 01/19/25 01/19/25 04:25 18:06 22:13 WBC RBC Hgb Hct MCV MCH MCHC RDW Std Deviation Plt Count Neut % (Auto) Lymph % (Auto) [place] % (Auto) Eos % (Auto) Baso % (Auto) Neut # (Auto) Lymph # (Auto) [place] # (Auto) Eos # (Auto) Baso # (Auto) Immature Gran # (Auto) Absolute Nucleated RBC Immature Gran % Nucleated RBC % Sodium Potassium Chloride Carbon Dioxide Anion Gap BUN Creatinine Estim Creat Clear Calc eGFR BUN/Creatinine Ratio Glucose Calculated Osmolality Lactic Acid 2.9 H 2.2 H Calcium Corrected Calcium Phosphorus 9.0 H Magnesium Total Bilirubin AST ALT Alkaline Phosphatase Total Protein Albumin Globulin Albumin/Globulin Ratio TSH Free T4 PTH Intact 194.9 H Random Vancomycin 01/20/25 04:58 WBC 27.8 H RBC 3.02 L Hgb 9.0 L Hct 27.3 L MCV 90 MCH 29.8 MCHC 33.0 RDW Std Deviation 65.1 H Plt Count 141 Neut % (Auto) 88 H Lymph % (Auto) 2 L [place] % (Auto) 8 Eos % (Auto) 0 Baso % (Auto) 0 Neut # (Auto) 24.4 H Lymph # (Auto) 0.7 L [place] # (Auto) 2.2 H Eos # (Auto) 0.1 Baso # (Auto) 0.0 Immature Gran # (Auto) 0.41 H Absolute Nucleated RBC 0.00 Immature Gran % 2 H Nucleated RBC % 0 Sodium 133 L Potassium 4.9 Chloride 92 L Carbon Dioxide 24.3 Anion Gap 17 H BUN 63 H Creatinine 8.0 H* D Estim Creat Clear Calc 8.8 L eGFR 7 L* BUN/Creatinine Ratio 8 L Glucose 224 H D Calculated Osmolality 291 Lactic Acid Calcium 9.2 Corrected Calcium 9.7 Phosphorus 9.0 H Magnesium 2.6 Total Bilirubin 2.5 H AST 137 H ALT 100 H Alkaline Phosphatase 221 H D Total Protein 7.4 Albumin 3.4 L Globulin 4.0 H Albumin/Globulin Ratio 0.9 L TSH 2.40 Free T4 1.34 PTH Intact Random Vancomycin 28.3 ABG Interpretation ABG results: 01/15/25 19:57 VBG pH 7.48 VBG pCO2 27 L VBG pO2 54 VBG Base Excess -2 Assessment & Plan A&P Narrative CKD 5, presumably due to dm II bacteremia with enterobacter with bc neg from 01/18 so far other hx as noted changed to po levaquin for remainder of 14d course. if you prefer fortaz with hd that will also work in this setting. line removal not essential for most gnr's unless problem is recurrent soon after last episode (within a week of cessation approx) no need for outpt ID f/u. Time Spent With Patient Time: Total time spent is greater than 50% in coordination of care (as documented) at patient's floor/unit and/or counseling patient:
[2025-01-20 12:51] LABS: HIV (1&2) Antibody Rapid Non-Reactive
--- NOTE | 2025-01-20 13:30 | ESPR_ITS ---
<Statement entered by Virgilio Crandall MD - 01/20/25 21:46> I have reviewed the note and agree with the resident's assessment & plan with exceptions as below. I have personally reviewed labs, imaging, home meds/prior records, examined the patient, formulated and discussed management plan with the IM team. Pt continues to improve. His mylagias are still there, repeat blood cultures negative, will hold on removing line at this time. Neurology to do LP today. Repeat hematology, electrolytes and chemistry in AM. Continue with HD MWF (Dr. Garcia, Nephrology). Consulted ID, appreciate recs. Virgilio Crandall, PGY-2 Internal Medicine Documentation for date of: 01/20/25 Subjective Subjective Interval history: Patient seen today at bedside. A&O x4. Mentation better than yesterday. No overnight events. T overnight was 100.3. Tachypnic. 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 Answering questions appropriately. Feels that stomach is a little less distended. No abdominal pain, no nausea or vomiting, no chest pain, no shortness of breath. Exam Vital Signs Temp Pulse Resp BP Pulse Ox O2 Del Method O2 Flow Rate 97.6 F 81 16 124/69 99 Nasal Cannula 4 01/20/25 12:00 01/20/25 12:00 01/20/25 12:00 01/20/25 12:00 01/20/25 12:00 01/20/25 12:00 01/20/25 12:00 Narrative Exam GENERAL APPEARANCE: alert & oriented x4, no acute distress, R tunneled dialysis catheter present HEENT: Normocephalic, atraumatic; pupils equal, round, reactive to light; EOMI; mucous membranes pink, moist; oropharynx clear NECK: Supple LUNGS: CTABL; no wheezes, no rales, no rhonchi HEART: Regular rate, regular rhythm; normal S1, S2; no murmurs ABDOMEN: moderate distention; normal BS; no tenderness, no guarding, no rebound; no masses, no organomegaly, no hernia EXTREMITIES: atraumatic; no edema NEUROLOGIC: no facial droop, right arm reduced strength, able to move all 4 limbs PSYCHIATRIC: appropriate mood and affect SKIN: warm, dry, normal color; no rashes Objective Labs 01/20/25 04:58 01/20/25 04:58 Labs: Laboratory Results - last 24 hr 01/18/25 01/19/25 01/19/25 04:25 18:06 22:13 WBC RBC Hgb Hct MCV MCH MCHC RDW Std Deviation Plt Count Neut % (Auto) Lymph % (Auto) Kaufman % (Auto) Eos % (Auto) Baso % (Auto) Neut # (Auto) Lymph # (Auto) Kaufman # (Auto) Eos # (Auto) Baso # (Auto) Immature Gran # (Auto) Absolute Nucleated RBC Immature Gran % Nucleated RBC % Sodium Potassium Chloride Carbon Dioxide Anion Gap BUN Creatinine Estim Creat Clear Calc eGFR BUN/Creatinine Ratio Glucose Calculated Osmolality Lactic Acid 2.9 H 2.2 H Calcium Corrected Calcium Phosphorus 9.0 H Magnesium Total Bilirubin AST ALT Alkaline Phosphatase Total Protein Albumin Globulin Albumin/Globulin Ratio TSH Free T4 PTH Intact 194.9 H Random Vancomycin HIV 1&2 Antibody Rapid 01/20/25 04:58 WBC 27.8 H RBC 3.02 L Hgb 9.0 L Hct 27.3 L MCV 90 MCH 29.8 MCHC 33.0 RDW Std Deviation 65.1 H Plt Count 141 Neut % (Auto) 88 H Lymph % (Auto) 2 L Kaufman % (Auto) 8 Eos % (Auto) 0 Baso % (Auto) 0 Neut # (Auto) 24.4 H Lymph # (Auto) 0.7 L Kaufman # (Auto) 2.2 H Eos # (Auto) 0.1 Baso # (Auto) 0.0 Immature Gran # (Auto) 0.41 H Absolute Nucleated RBC 0.00 Immature Gran % 2 H Nucleated RBC % 0 Sodium 133 L Potassium 4.9 Chloride 92 L Carbon Dioxide 24.3 Anion Gap 17 H BUN 63 H Creatinine 8.0 H* D Estim Creat Clear Calc 8.8 L eGFR 7 L* BUN/Creatinine Ratio 8 L Glucose 224 H D Calculated Osmolality 291 Lactic Acid Calcium 9.2 Corrected Calcium 9.7 Phosphorus 9.0 H Magnesium 2.6 Total Bilirubin 2.5 H AST 137 H ALT 100 H Alkaline Phosphatase 221 H D Total Protein 7.4 Albumin 3.4 L Globulin 4.0 H Albumin/Globulin Ratio 0.9 L TSH 2.40 Free T4 1.34 PTH Intact Random Vancomycin 28.3 HIV 1&2 Antibody Rapid Non-Reactive ABG Interpretation ABG results: 01/15/25 19:57 VBG pH 7.48 VBG pCO2 27 L VBG pO2 54 VBG Base Excess -2 Quality Measures Quality Measures VTE prophylaxis Assessment & Plan Assessment Current Active Medications: Generic Name Dose Route Start Last Admin Trade Name Kasandra PRN Reason Stop Dose Admin Acetaminophen 650 mg 01/15/25 18:19 01/20/25 07:31 Acetaminophen 325 Mg Tablet PO 02/14/25 18:18 650 mg Q6H PRN Administration Fever >101.5 Acetaminophen 650 mg 01/15/25 18:19 01/18/25 02:36 Acetaminophen 325 Mg Tablet PO 02/14/25 18:18 650 mg Q6H PRN Administration PAIN SCALE 1-3 (mild Hydrocodone Bitart/Acetaminophen 0.5 tab 01/19/25 15:38 01/20/25 07:35 Hydrocodone/Apap 5/325 Tablet PO 01/21/25 07:54 0.5 tab Q6HR PRN Administration PAIN SCALE 4-6 (Moderate Apixaban 5 mg 01/19/25 09:00 01/20/25 08:34 Apixaban 2.5 Mg Tablet PO 02/18/25 08:59 5 mg BID ADRIANA Administration Atorvastatin Calcium 80 mg 01/15/25 21:00 01/19/25 20:43 Atorvastatin Calcium 20 Mg Tablet PO 02/14/25 20:59 80 mg HS ADRIANA Administration Calcium Acetate 2,001 mg 01/16/25 12:00 01/20/25 11:31 Calcium Acetate 667 Mg Tablet PO 02/15/25 11:59 2,001 mg TIDWM ADRIANA Administration Dextrose 25 ml 01/15/25 23:44 Dextrose 50%-Water Inj 50 Ml Syringe IV 02/14/25 23:43 Q15MIN PRN BG 50-70 responsive npo pt Dextrose 50 ml 01/15/25 23:44 Dextrose 50%-Water Inj 50 Ml Syringe IV 02/14/25 23:43 Q15MIN PRN BG <50 OR BG <70 & pt unresponsive Glucagon 1 mg 01/15/25 23:44 Glucagon Inj 1 Mg Vial IM Q15MIN PRN BG <70, and no IV access Heparin Sodium (Porcine) 3,300 unit 01/15/25 16:07 01/16/25 18:06 Heparin Sod Inj 1000 Unit/Ml Vial 10 Ml INDWELLCAT 01/29/25 16:06 3,300 unit PRN PRN Administration DIALYSIS Hydromorphone HCl 0.25 mg 01/16/25 01:54 01/17/25 13:29 Hydromorphone Inj 2 Mg/Ml Vial IVP 01/21/25 01:53 0.25 mg Q4HR PRN Administration Pain 7-10 Insulin Human Lispro 0 unit 01/16/25 07:30 01/20/25 11:31 Insulin Lispro (Admelog) 1 Unit/0.01 Ml Unit SC 02/15/25 07:29 1 unit AC ON LICENSE OF [facility] Administration Protocol Levofloxacin 250 mg 01/21/25 09:00 Levofloxacin 250 Mg Tablet PO 02/01/25 12:00 QDAY ADRIANA Metoprolol Succinate 25 mg 01/17/25 09:00 01/20/25 08:33 Metoprolol Succinate Xl 25 Mg Tabcr PO 02/16/25 08:59 25 mg QDAY ADRIANA Administration Ondansetron HCl 4 mg 01/15/25 18:19 Ondansetron Inj 2 Mg/Ml Inj 2 Ml IVP 02/14/25 18:18 Q6H PRN NAUSEA OR VOMITING Protocol Vitamin B Complex/Vit C/Folic Acid 1 tab 01/16/25 09:00 01/20/25 08:33 Vit B12/Vit C/Fa (Nephrovite) Tablet PO 02/15/25 08:59 1 tab QDAY ADRIANA Administration Plan Assessment 59 year old male with history of hypertension, diabetes, hyperlipidemia, ESRD admitted for acute encepahlopathy. 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 Patient missed several HD appts. Teleneuro assessed patient and noted NIHSS score of 18. CT head w/o 01/15/25: Negative for acute hemorrhage, mass effect or midline shift CTA head/neck 01/15/25: No significant neck arterial stenoses. No critical vertebral artery stenoses in the neck. 60% stenosis intracranial left vertebral artery. Attenuated basilar artery which does fill with no large vessel occlusions involving the basilar artery or posterior cerebral branches. Heavy calcification juxtasellar portions internal carotid arteries, 50% stenosis on the right 60% stenosis on the left. No middle cerebral or anterior cerebral artery large vessel occlusions CXR: Moderate vascular congestion WBC elevated, UA + UTI, serum ammonia WNL, TSH WNL Carotid dopper (01/16/25): Right internal carotid artery demonstrates 10-30% stenosis. Left internal carotid artery demonstrates 0-10% stenosis. No right vertebral artery flow is depicted Brain MRI with MRA negative (01/16/25). Negative for acute hemorrhage mass effect or midline shift. No acute infarct Echo 01/17/2025: Left ventricle dimensions normal with evidence of severe left ventricle hypertrophy asymmetric septal hypertrophy with septal thickness of 20 mm with normal left ventricle function ejection fraction of 60%. Grade 1 diastolic dysfunction is present. The RV is normal in size and systolic function. Aortic Valve sclerosis calcification with evidence of mild aortic stenosis gradient of peak velocity 1.7 m/s Mitral annulus calcification with evidence of mild mitral regurgitation. Plan: - Neurology following. Appreciate Recs - Nephro following. Known to Dr. Garcia, follow recs[facility] - Continue calcium acetate for management of hyperphosphatemia (Phos 9 07/06 AM labs) - MRI spine findings could be seen in hyperparathyroidsm/Hyperphosphatemia/ESRD and not specific for metastasis. Neuro does not think contrasted study needed to evaluate further, rather treat hyperphophatemia vigorously - LP today by neurology #Hyperparathyroidism #2/2 to ESRD PTH - 194.9 Ca 9.7, Phos 9 Plan Continue Calcium acetate #HAGMA #Lactic Acidosis Lactate 2.2, AG 17 (19) Likely related to Lactate HCO3- 24 Plan: - Trend Lactate - Nephrology following, appreciate recs #Renal cyst - bilateral #Renal mass ruled out CT abdomen pelvis wo con Hepatosplenomegaly. Trace ascites. Tiny bilateral renal calculi. Recommend renal sonography follow-up to exclude 32 mm anterior right renal mass. Urinary bladder wall thickening, differential would include cystitis Renal US - ruled renal mass. Bilateral renal cortical thinning. Mild to moderate bilateral renal parenchymal scar formation. 5 mm left renal calculus Plan: - Monitor worsening clinical status (fever, new abdominal pain) #Hepatosplenomegaly #Cholelithiasis #Mild cirrhosis #?Ascites CT abdomen showed Liver mildly irregular in contour. Hepatomegaly 19 cm. Splenomegaly 14 cm. Cholelithiasis. Gallbladder wall appears mildly thickened. Plan: Monitor worsening clinical status (fever, new abdominal pain) Patient to f/u with PCP for further w/u of cirrhosis Repeat Abd US limited #Insulin Independent Type II Diabetes mellitus type 2 Hgb A1C 6.1 (down from 6.9). Well controlled. Patient is not on diabetic meds at home, mentions diet-controlled. Glucose 173 in AM - patient does have bacteremia Plan: ? Sliding scale insulin ? Hypoglycemic protocol in place ? Blood sugar checks with meals #Paroxysmal A-fib, rate controlled [id number]: 4 HAS-BLED:3 Plan: - Eliquis 5 mg BID - Keep Mag > 2 and K > 4 - Telemetry - Home Metoprolol XL 25 mg qday #Hyperlipidemia LDL 83 Plan: - Continue home Atorvastatin 80mg daily #Health Maintenance Disposition: Telemetry DVT prophylaxis: Eliquis 5 mg BID GI prophylaxis: None indicated at this time Diet: Renal CODE STATUS: DNR Case discussed with my attending Dr. Norton and senior resident Dr Raz Romero MD PGY-1 Attending Provider Attestation/Addendum Continue current antibiotic treatment. Patient is alert and oriented. Neurology consultation pending. Planned LP today. I discussed with and supervised the resident physician who took care of this patient. I agree with the assessment and plan as above.
[2025-01-20 13:44] LABS: Cocci Serology, IgM Negative (Negative)
--- NOTE | 2025-01-20 14:09 | ESPR_ITS ---
Documentation for date of: 01/20/25 Subjective Subjective Interval history: Overnight events: No acute events overnight. Patient was seen and examined at bedside. AM vitals and labs reviewed. Renal lab values worsened, but not unexpected as the last hemodialysis session was on 01/18/25. BUN 63, creatinine 8.0, GFR 7, and phosphate 9. Ins/out 1545/0. Hemodialysis planned for today. Infectious disease team initiated levofloxacin 250 mg daily to manage Enterobacter UTI. Patient was previously on vancomycin and Zosyn for treatment of UTI. Review of systems otherwise negative except for what is mentioned above. Exam Vital Signs Temp Pulse Resp BP Pulse Ox O2 Del Method O2 Flow Rate 97.6 F 81 16 124/69 99 Nasal Cannula 4 01/20/25 12:00 01/20/25 12:00 01/20/25 12:00 01/20/25 12:01/20/25 12:01/20/25 12:01/20/25 12:00 Narrative Exam Physical Exam: General: Alert, no acute distress. Skin: Warm, dry, intact, no obvious rash. Head: Normocephalic, atraumatic. Eye: Normal conjunctiva, PERRL. Throat: Oral mucosa moist. No obvious lesions in oropharynx. Cardiovascular: Regular rate and rhythm, no murmur, +S1/S2. Respiratory: Lungs are clear to auscultation, respirations unlabored, no crackles, no wheezing. Gastrointestinal: Soft, nontender, distended. No guarding or rebound tenderness. Extremities: 1+ edema, no cyanosis, no clubbing. 2+ radial pulse bilaterally, 1+ pedal pulse bilaterally. Neuro: No focal deficits observed. Conversant, moving all extremities. No overt cerebellar signs/incoordination. Psychiatric: Cooperative, appropriate affect. Objective Labs 01/25/25 05:44 01/25/25 05:44 Labs: Laboratory Results - last 24 hr 01/18/25 01/19/25 01/19/25 04:25 18:06 22:13 WBC RBC Hgb Hct MCV MCH MCHC RDW Std Deviation Plt Count Neut % (Auto) Lymph % (Auto) Sierra % (Auto) Eos % (Auto) Baso % (Auto) Neut # (Auto) Lymph # (Auto) Sierra # (Auto) Eos # (Auto) Baso # (Auto) Immature Gran # (Auto) Absolute Nucleated RBC Immature Gran % Nucleated RBC % Sodium Potassium Chloride Carbon Dioxide Anion Gap BUN Creatinine Estim Creat Clear Calc eGFR BUN/Creatinine Ratio Glucose Calculated Osmolality Lactic Acid 2.9 H 2.2 H Calcium Corrected Calcium Phosphorus 9.0 H Magnesium Total Bilirubin AST ALT Alkaline Phosphatase Total Protein Albumin Globulin Albumin/Globulin Ratio TSH Free T4 PTH Intact 194.9 H Random Vancomycin Coccidioides IgM Ab HIV 1&2 Antibody Rapid 01/20/25 01/20/25 04:58 11:05 WBC 27.8 H RBC 3.02 L Hgb 9.0 L Hct 27.3 L MCV 90 MCH 29.8 MCHC 33.0 RDW Std Deviation 65.1 H Plt Count 141 Neut % (Auto) 88 H Lymph % (Auto) 2 L Sierra % (Auto) 8 Eos % (Auto) 0 Baso % (Auto) 0 Neut # (Auto) 24.4 H Lymph # (Auto) 0.7 L Sierra # (Auto) 2.2 H Eos # (Auto) 0.1 Baso # (Auto) 0.0 Immature Gran # (Auto) 0.41 H Absolute Nucleated RBC 0.00 Immature Gran % 2 H Nucleated RBC % 0 Sodium 133 L Potassium 4.9 Chloride 92 L Carbon Dioxide 24.3 Anion Gap 17 H BUN 63 H Creatinine 8.0 H* D Estim Creat Clear Calc 8.8 L eGFR 7 L* BUN/Creatinine Ratio 8 L Glucose 224 H D Calculated Osmolality 291 Lactic Acid Calcium 9.2 Corrected Calcium 9.7 Phosphorus 9.0 H Magnesium 2.6 Total Bilirubin 2.5 H AST 137 H ALT 100 H Alkaline Phosphatase 221 H D Total Protein 7.4 Albumin 3.4 L Globulin 4.0 H Albumin/Globulin Ratio 0.9 L TSH 2.40 Free T4 1.34 PTH Intact Random Vancomycin 28.3 Coccidioides IgM Ab Negative HIV 1&2 Antibody Rapid Non-Reactive ABG Interpretation ABG results: 01/15/25 19:57 VBG pH 7.48 VBG pCO2 27 L VBG pO2 54 VBG Base Excess -2 Quality Measures Quality Measures VTE prophylaxis Assessment & Plan Assessment Current Active Medications: Generic Name Dose Route Start Last Admin Trade Name Freq PRN Reason Stop Dose Admin Acetaminophen 650 mg 01/15/25 18:19 01/20/25 07:31 Acetaminophen 325 Mg Tablet PO 02/14/25 18:18 650 mg Q6H PRN Administration Fever >101.5 Acetaminophen 650 mg 01/15/25 18:19 01/18/25 02:36 Acetaminophen 325 Mg Tablet PO 02/14/25 18:18 650 mg Q6H PRN Administration PAIN SCALE 1-3 (mild Hydrocodone Bitart/Acetaminophen 0.5 tab 01/19/25 15:38 01/20/25 07:35 Hydrocodone/Apap 5/325 Tablet PO 01/21/25 07:54 0.5 tab Q6HR PRN Administration PAIN SCALE 4-6 (Moderate Apixaban 5 mg 01/19/25 09:00 01/20/25 08:34 Apixaban 2.5 Mg Tablet PO 02/18/25 08:59 5 mg BID ADRIANA Administration Atorvastatin Calcium 80 mg 01/15/25 21:00 01/19/25 20:43 Atorvastatin Calcium 20 Mg Tablet PO 02/14/25 20:59 80 mg HS ADRIANA Administration Calcium Acetate 2,001 mg 01/16/25 12:00 01/20/25 11:31 Calcium Acetate 667 Mg Tablet PO 02/15/25 11:59 2,001 mg TIDWM ADRIANA Administration Dextrose 25 ml 01/15/25 23:44 Dextrose 50%-Water Inj 50 Ml Syringe IV 02/14/25 23:43 Q15MIN PRN BG 50-70 responsive npo pt Dextrose 50 ml 01/15/25 23:44 Dextrose 50%-Water Inj 50 Ml Syringe IV 02/14/25 23:43 Q15MIN PRN BG <50 OR BG <70 & pt unresponsive Glucagon 1 mg 01/15/25 23:44 Glucagon Inj 1 Mg Vial IM Q15MIN PRN BG <70, and no IV access Heparin Sodium (Porcine) 3,300 unit 01/15/25 16:07 01/16/25 18:06 Heparin Sod Inj 1000 Unit/Ml Vial 10 Ml INDWELLCAT 01/29/25 16:06 3,300 unit PRN PRN Administration DIALYSIS Hydromorphone HCl 0.25 mg 01/16/25 01:54 01/17/25 13:29 Hydromorphone Inj 2 Mg/Ml Vial IVP 01/21/25 01:53 0.25 mg Q4HR PRN Administration Pain 7-10 Insulin Human Lispro 0 unit 01/16/25 07:30 01/20/25 11:31 Insulin Lispro (Admelog) 1 Unit/0.01 Ml Unit SC 02/15/25 07:29 1 unit AC ADRIANA Administration Protocol Levofloxacin 250 mg 01/21/25 09:00 Levofloxacin 250 Mg Tablet PO 02/01/25 12:00 QDAY ADRIANA Metoprolol Succinate 25 mg 01/17/25 09:00 01/20/25 08:33 Metoprolol Succinate Xl 25 Mg Tabcr PO 02/16/25 08:59 25 mg QDAY ADRIANA Administration Ondansetron HCl 4 mg 01/15/25 18:19 Ondansetron Inj 2 Mg/Ml Inj 2 Ml IVP 02/14/25 18:18 Q6H PRN NAUSEA OR VOMITING Protocol Vitamin B Complex/Vit C/Folic Acid 1 tab 01/16/25 09:00 01/20/25 08:33 Vit B12/Vit C/Fa (Nephrovite) Tablet PO 02/15/25 08:59 1 tab QDAY ADRIANA Administration Plan Mr. Springer is a 59?year old male with a relevant medical history of ESRD on HD // followed by Dr. Garcia, HTN, T2DM, and HLD who presents with altered mental status. Nephrology was consulted for the patient's hemodialysis management. #ESRD on HD // #Uremia Patient is well known to Dr. Garcia. BUN, Cr, and eGFR were 122, 13.8, and 4 respectively on admission, suggesting the patient was not able to attend one or more of his HD sessions. This was later confirmed by his son who stated that he missed several sessions last week. Increased BUN may explain the altered mental status due to uremic encephalopathy. - Performed HD 01/15, 01/16, and 01/18. Planning another HD session today in accordance to [facility] HD schedule. - Continue calcium acetate 2001 mg for management of hyperphosphatemia. - Continue to monitor renal function - Nephrology will continue to follow Patient was discussed with the Nephrology attending, Dr. Garcia. Thank you for allowing us to participate in the care of this patient. Bebeto Pino, PGY-1 Attending Provider Attestation/Addendum Agree with assessment and plan and finding of resident. Pastor Garcia MD
--- NOTE | 2025-01-20 14:25 | ESCONSULT_ITS ---
RE: EVELIO CONTRERAS : 1965 DATE OF CONSULTATION: 01/20/2025 REFERRING PHYSICIAN: Dr. Alejo. REASON FOR CONSULTATION: Bacteremia. HISTORY OF PRESENT ILLNESS: The patient is an unfortunate 59-year-old man admitted on the as noted. Blood cultures were positive early on and on repeat, but then negative from the . He states he is on dialysis due to both diabetes and hypertension, although diabetes is more likely a cause. He is on oxygen as well. PAST SURGICAL HISTORY: Includes dialysis access procedures. ALLERGIES: NONE NOTED. IMMUNIZATIONS: Last tetanus is uncertain. He does get a flu shot dialysis, which he has been on for couple of years. He has had a COVID vaccine once and does not recall a pneumococcal vaccine, although would be a routine candidate for his diabetes. FAMILY HISTORY: Positive for diabetes and hypertension. SOCIAL HISTORY: He lives with his . He is a nonsmoker and denies alcohol or drug use. He may be slightly confused, but that may be part and parcel of the dialysis. I will leave O2 to others. If a workup for confusion is needed, you can check a number of tests including spinal tap, syphilis test and other tests. If he has positive syphilis test I can see him in f/u as well. I will check on him in 2 weeks if he is still here, but if he goes home, I will be available on a limited basis in the next couple of weeks, but it will be very limited because I will be on a vacation. DT: 11:53:27 TT: 13:55:00 Ref: [id number] - TID: [id number] [facility]
--- NOTE | 2025-01-20 15:43 | PC.SS ---
Rounding: Pt receiving IV ABX, pending SNF choice from family for DC plan
[2025-01-20] MEDS: ALBUMIN HUMAN 25% IVPB 25 GM/100 ML BTL IV (17:30)
--- NOTE | 2025-01-20 17:34 | PC.NURSE ---
bp low, pt denies all s/ of hypotension, uf off. will admin prn albumin and cont. to monitor
--- NOTE | 2025-01-20 17:37 | PC.NURSE ---
BP trending up, UF goal lowered to 2l as tolerated. UF turned back on will cont. to monitor
[2025-01-20] MEDS: HEPARIN SOD INJ 1000 UNIT/ML VIAL 10 ML 3300 UNIT INDWELLCAT (18:59)
--- NOTE | 2025-01-20 19:48 | ESPR_ITS ---
Documentation for date of: 01/20/25 Subjective Subjective Interval history: Patient seen at bedside, lying down. Denies UE/LE pain. Exam Vital Signs Temp Pulse Resp BP Pulse Ox O2 Del Method O2 Flow Rate 98.6 F 112 H 20 112/67 97 Nasal Cannula 4 01/20/25 18:48 01/20/25 18:48 01/20/25 18:48 01/20/25 18:48 01/20/25 18:48 01/20/25 12:00 01/20/25 18:48 Narrative Exam General: No acute distress, well nourished Eye: PERRL, EOMI, normal conjunctiva, no scleral icterus HENT: Normocephalic, atraumatic, hearing intact to conversation at normal volume, moist oral mucosa Neck: Supple, non-tender, no JVD, no lymphadenopathy Lungs: Non-labored respirations, symmetric chest rise Heart: Peripheral pulses intact bilaterally Abdomen: Distended, non-tender Musculoskeletal: Normal range of motion and strength Skin: Skin is warm, dry, no rashes or lesions. Psychiatric: Cooperative, appropriate mood and affect Neurologic: Mental status: Orientation: AOx2 Communication: Patient is cooperative and can follow simple instructions Language: Speech fluent, normal rate and volume, comprehension intact Cranial nerves: CN II: Visual thompson intact CN III: Pupils equal, round, and reactive to light CN III, IV, : No gaze deviation, no nystagmus Horizontal pursuit: intact Vertical pursuit: intact Ptosis: none CN V: Facial sensation to light touch intact bilaterally at the forehead, cheeks, and jaw line CN VII: Face symmetric, no facial droop appreciated CN VIII: Able to hear and respond to conversation at normal volume, intact to finger rub CN IX, X: Palate elevation symmetric, uvula midline CN XI: Head turn and shoulder shrug strong, symmetric bilaterally CN XII: Normal tongue protrusion without deviation, no fasciculations Motor: Normal bulk and tone No atrophy No abnormal movements or fasciculations Muscle strength: Shoulder abduction: R 5/5 L 5/5 Elbow flexion: R 5/5 L 5/5 Elbow extension: R 5/5 L 5/5 Hip flexion: R 5/5 L 5/5 Hip extension: R 5/5 L 5/5 Sensory: RUE: Light touch intact LUE: Light touch intact RLE: Light touch intact LLE: Light touch intact Reflexes: Biceps (C5-6): R 2+ L 2+ Brachioradialis (C5-6): R 2+ L 2+ Triceps (C7-8): R 2+ L 2+ Patellae (L3-4): R 2+ L 2+ No clonus Plantar reflex downgoing bilaterally Cerebellum: RUE: No dysmetria (finger to nose), no dysdiadochokinesia (rapid alternating movements) LUE: No dysmetria (finger to nose), no dysdiadochokinesia (rapid alternating movements) Objective Labs 01/21/25 04:40 01/21/25 04:40 Labs: Laboratory Results - last 24 hr 01/18/25 01/19/25 01/20/25 04: 22:13 04:58 WBC 27.8 H RBC 3.02 L Hgb 9.0 L Hct 27.3 L MCV 90 MCH 29.8 MCHC 33.0 RDW Std Deviation 65.1 H Plt Count 141 Neut % (Auto) 88 H Lymph % (Auto) 2 L [place] % (Auto) 8 Eos % (Auto) 0 Baso % (Auto) 0 Neut # (Auto) 24.4 H Lymph # (Auto) 0.7 L [place] # (Auto) 2.2 H Eos # (Auto) 0.1 Baso # (Auto) 0.0 Immature Gran # (Auto) 0.41 H Absolute Nucleated RBC 0.00 Immature Gran % 2 H Nucleated RBC % 0 Sodium 133 L Potassium 4.9 Chloride 92 L Carbon Dioxide 24.3 Anion Gap 17 H BUN 63 H Creatinine 8.0 H* D Estim Creat Clear Calc 8.8 L eGFR 7 L* BUN/Creatinine Ratio 8 L Glucose 224 H D Calculated Osmolality 291 Lactic Acid 2.2 H Calcium 9.2 Corrected Calcium 9.7 Phosphorus 9.0 H Magnesium 2.6 Total Bilirubin 2.5 H AST 137 H ALT 100 H Alkaline Phosphatase 221 H D Total Protein 7.4 Albumin 3.4 L Globulin 4.0 H Albumin/Globulin Ratio 0.9 L TSH 2.40 Free T4 1.34 PTH Intact 194.9 H Random Vancomycin 28.3 Coccidioides IgM Ab HIV 1&2 Antibody Rapid Non-Reactive 01/20/25 11:05 WBC RBC Hgb Hct MCV MCH MCHC RDW Std Deviation Plt Count Neut % (Auto) Lymph % (Auto) [place] % (Auto) Eos % (Auto) Baso % (Auto) Neut # (Auto) Lymph # (Auto) [place] # (Auto) Eos # (Auto) Baso # (Auto) Immature Gran # (Auto) Absolute Nucleated RBC Immature Gran % Nucleated RBC % Sodium Potassium Chloride Carbon Dioxide Anion Gap BUN Creatinine Estim Creat Clear Calc eGFR BUN/Creatinine Ratio Glucose Calculated Osmolality Lactic Acid Calcium Corrected Calcium Phosphorus Magnesium Total Bilirubin AST ALT Alkaline Phosphatase Total Protein Albumin Globulin Albumin/Globulin Ratio TSH Free T4 PTH Intact Random Vancomycin Coccidioides IgM Ab Negative HIV 1&2 Antibody Rapid ABG Interpretation ABG results: 01/15/25 19:57 VBG pH 7.48 VBG pCO2 27 L VBG pO2 54 VBG Base Excess -2 Quality Measures Quality Measures VTE prophylaxis Assessment & Plan Assessment Current Active Medications: Generic Name Dose Route Start Last Admin Trade Name Freq PRN Reason Stop Dose Admin Acetaminophen 650 mg 01/15/25 18:19 01/20/25 07:31 Acetaminophen 325 Mg Tablet PO 02/14/25 18:18 650 mg Q6H PRN Administration Fever >101.5 Acetaminophen 650 mg 01/15/25 18:19 01/18/25 02:36 Acetaminophen 325 Mg Tablet PO 02/14/25 18:18 650 mg Q6H PRN Administration PAIN SCALE 1-3 (mild Hydrocodone Bitart/Acetaminophen 0.5 tab 01/19/25 15:38 01/20/25 07:35 Hydrocodone/Apap 5/325 Tablet PO 01/21/25 07:54 0.5 tab Q6HR PRN Administration PAIN SCALE 4-6 (Moderate Apixaban 5 mg 01/19/25 09:00 01/20/25 08:34 Apixaban 2.5 Mg Tablet PO 02/18/25 08:59 5 mg BID ADRIANA Administration Atorvastatin Calcium 80 mg 01/15/25 21:00 01/19/25 20:43 Atorvastatin Calcium 20 Mg Tablet PO 02/14/25 20:59 80 mg HS ADRIANA Administration Calcium Acetate 2,001 mg 01/16/25 12:00 01/20/25 11:31 Calcium Acetate 667 Mg Tablet PO 02/15/25 11:59 2,001 mg TIDWM ADRIANA Administration Dextrose 25 ml 01/15/25 23:44 Dextrose 50%-Water Inj 50 Ml Syringe IV 02/14/25 23:43 Q15MIN PRN BG 50-70 responsive npo pt Dextrose 50 ml 01/15/25 23:44 Dextrose 50%-Water Inj 50 Ml Syringe IV 02/14/25 23:43 Q15MIN PRN BG <50 OR BG <70 & pt unresponsive Glucagon 1 mg 01/15/25 23:44 Glucagon Inj 1 Mg Vial IM Q15MIN PRN BG <70, and no IV access Heparin Sodium (Porcine) 3,300 unit 01/15/25 16:07 01/20/25 18:59 Heparin Sod Inj 1000 Unit/Ml Vial 10 Ml INDWELLCAT 01/29/25 16:06 3,300 unit PRN PRN Administration DIALYSIS Hydromorphone HCl 0.25 mg 01/16/25 01:54 01/17/25 13:29 Hydromorphone Inj 2 Mg/Ml Vial IVP 01/21/25 01:53 0.25 mg Q4HR PRN Administration Pain 7-10 Albumin Human 25 gm in 100 mls @ 100 mls/min 01/20/25 14:00 01/20/25 17:30 Albuminar-25 Ivpb IV 100 mls/min PRN PRN Administration DIALYSIS Insulin Human Lispro 0 unit 01/16/25 07:30 01/20/25 19:08 Insulin Lispro (Admelog) 1 Unit/0.01 Ml Unit SC 02/15/25 07:29 Not Given AC [facility] Protocol Levofloxacin 250 mg 01/21/25 09:00 Levofloxacin 250 Mg Tablet PO 02/01/25 12:00 QDAY ADRIANA Metoprolol Succinate 25 mg 01/17/25 09:00 01/20/25 08:33 Metoprolol Succinate Xl 25 Mg Tabcr PO 02/16/25 08:59 25 mg QDAY ADRIANA Administration Ondansetron HCl 4 mg 01/15/25 18:19 Ondansetron Inj 2 Mg/Ml Inj 2 Ml IVP 02/14/25 18:18 Q6H PRN NAUSEA OR VOMITING Protocol Vitamin B Complex/Vit C/Folic Acid 1 tab 01/16/25 09:00 01/20/25 08:33 Vit B12/Vit C/Fa (Nephrovite) Tablet PO 02/15/25 08:59 1 tab QDAY [facility] Administration Plan #Acute Encephalopathy Patient on HD, missed several HD appointments last week 2/2 fall with head strike. Patient expresses pain in all extremities limiting physical exam. CT head w/o, CTA head/neck, MRI negative for acute hemorrhage, mass effect, midline shift, LVO, acute infarct. CTA head/neck showed 60% stenosis intracranial left vertebral artery.50% stenosis, on the right 60% stenosis on the left Carotid doppler: Right internal carotid artery demonstrates 10-30% stenosis.Left internal carotid artery demonstrates 0-10% stenosis.No right vertebral artery flow is depicted Rhabdomyolysis r/o given CK WNL DDX: toxic/metabolic (ESRD on HD, missed HD sessions / uremia), infectious (UTI, GNR bacteremia), hypertensive encephalopathy (sBPs reach 190s) Patient spiked fever 101.5 F max, tachycardic and tachypneic with shallow abdominal breething. SpO2 appropriate on NC 2L. Lactic acid elevated 2.2 (downtrending) B12 high 1497, folate WNL, TSH and T4 WNL Blood cultures initally grew GNR, enterobacter Plan - BP Management per primary team - L=Metoprolol succinate 25 mg daily - Abx management per primary team - Pip-taxo (01/19 - ) - LP scheduled 01/20/25 given new fevers, elevated lactic acid - Pending f/u blood cultures #Paroxysmal A-fib, rate controlled [id number]: 4 HAS-BLED:3 Plan: - Management per primary team - Eliquis 5 mg BID #Hyperlipidemia Triglycerides high 310 HDL low 5 Plan: - Continue high intensity statin #Hyperparathyroidism PTH 194.9 Ca 9.7, Phos 9 Plan: - Management per primary team - Calcium acetate #Hyperphosphatemia Phos elevated 9 Plan: - Management per primary team - Phoslo #ESRD on HD M/W/F Plan: - Management per primary team #Diabetes mellitus type 2 Hgb A1C 6.1 (down from 6.9) Plan: - Management per primary team - SSI Plan discussed with Dr. Abdiaziz Cruz, PGY1 Attending Provider Attestation/Addendum I personally have seen and examined the patient at the bedside and agreed with resident's findings, assessment and plan of care. As he continues to be lethargic and having fever spikes, we have decided to do lumbar puncture to evaluate further. Continue with the current antibiotics: Zosyn and vancomycin. Continue with phosphorus control and dialysis.
[2025-01-20] MEDS: ATORVASTATIN CALCIUM 20 MG TABLET 80 MG PO (20:51)
[2025-01-20 21:02] LABS: CSF Cell Count Tube # Tube # 4; CSF Color Bloody (Colorless); CSF White Blood Cell 19394 /cmm; CSF, Appearance Turbid (Clear)
[2025-01-20 21:05] LABS: CSF Red Blood Cell 3205000 /cmm
[2025-01-20 21:06] LABS: CSF Mononuclear 95 %; CSF Polynuclear WBC 5.0 %
[2025-01-20 21:20] LABS: Glucose,CSF 125 mg/dL (40-70)
[2025-01-20 21:29] LABS: Protein Total,CSF > 2500 mg/dL (8-32)
[2025-01-20 22:00] LABS: CSF Gram Stain Alert Gram Stain Completed
[2025-01-20 22:26] LABS: Coccid Serology, CF CSF (UCD)* See Sep Rpt
[2025-01-21] VITALS (11 sets, daily range): BP systolic 97–137; BP diastolic 53–73; PULSE 74–112; RESP 12–30; TEMP 36.1–36.9; O2SAT 92–98; BMI 26.7
[2025-01-21 06:23] LABS: Basophils # (Auto) 0.0 Thou/mm3 (0.0-0.2); Basophils % (Auto) 0 % (0-2.5); Eosinophils # (Auto) 0.1 Thou/mm3 (0.0-0.5); Eosinophils % (Auto) 0 % (0-10); Hematocrit 25.0 % (41.0-53.0); Immature Granulocytes Auto 0.52 Thou/mm3 (0.00-0.00); Lymphocytes # (Auto) 0.5 Thou/mm3 (1.0-4.8); Lymphocytes % (Auto) 2 % (10-50); Mean Corpuscular HGB Conc 34.0 g/dl (31.0-37.0); Mean Corpuscular Hemoglobin 29.7 pg (25.0-35.0); Mean Corpuscular Volume 87 fL (80-100); Monocytes # (Auto) 2.6 Thou/mm3 (0.0-0.8); Monocytes % (Auto) 11 % (0-12); Neutrophils # (Auto) 20.1 Thou/mm3 (1.8-7.7); Neutrophils % (Auto) 84 % (37-80); Nucleated Red Blood Cell # 0.00 Thou/mm3 (0.00-0.00); Nucleated Red Blood Cell % 0 /100 WBC (0); Platelet Count 144 Thou/mm3 (140-440); RDW Standard Deviation 62.1 fL (35.1-43.9); Red Blood Count 2.86 Miln/mm3 (4.50-5.90); White Blood Count 23.9 Thou/mm3 (3.8-10.6)
[2025-01-21 06:25] LABS: Hemoglobin 8.5 g/dL (13.5-16.0)
[2025-01-21 06:50] LABS: Alanine Aminotransferase 149 U/L (10-49); Albumin, Serum 3.7 gm/dL (3.5-5.0); Albumin/Globulin Ratio 1.0 (1.2-2.2); Alkaline Phosphatase 227 U/L (46-116); Anion Gap 18 (7-16); Aspartate Amino Transferase 234 U/L (0-34); BUN/Creatinine Ratio 7 Ratio (12-20); Bilirubin,Total 2.7 mg/dL (0.3-1.2); Blood Urea Nitrogen 38 mg/dL (9-23); Calcium 9.3 mg/dL (8.3-10.6); Calcium (Corrected) 9.5 mg/dL (8.5-10.1); Carbon Dioxide 24.4 mMol/L (20.0-31.0); Chloride 95 mMol/L (98-107); Creatinine (Component) 5.6 mg/dL (0.6-1.3); Estimated Creatinine Clearance 12.5 mL/min (>60); Globulin 3.8 gm/dL (2.3-3.5); Glucose 165 mg/dL (74-106); Magnesium 2.1 mg/dL (1.6-2.6); Osmolality,Calculated 286 (275-295); Phosphorous 6.5 mg/dL (2.4-5.1); Potassium 4.9 mMol/L (3.4-5.1); Sodium 137 mMol/L (136-145); Total Protein 7.5 gm/dL (5.7-8.2); eGFR 11 See Note
--- NOTE | 2025-01-21 08:30 | PD.RESPRO ---
Documentation for date of: 01/21/25 Subjective Subjective Interval history: Patient seen at bedside, sitting in chair. Patient reports that he feels slightly better than yesterday, but he does have pain in his lower back and legs. The pain begins in his lower back/buttock and shoots down his legs. He reports that he had a normal BM this AM. Exam Vital Signs Temp Pulse Resp BP Pulse Ox O2 Del Method O2 Flow Rate 98.4 F 97 28 H 113/61 97 Nasal Cannula 5 01/21/25 07:59 01/21/25 07:59 01/21/25 07:59 01/21/25 07:59 01/21/25 07:59 01/21/25 07:59 01/21/25 07:59 Narrative Exam General: No acute distress, well nourished Eye: PERRL, EOMI, normal conjunctiva, no scleral icterus HENT: Normocephalic, atraumatic, hearing intact to conversation at normal volume, moist oral mucosa Neck: Supple, non-tender, no JVD, no lymphadenopathy Lungs: Non-labored respirations, symmetric chest rise Heart: Peripheral pulses intact bilaterally Abdomen: Distended, non-tender Musculoskeletal: Normal range of motion and strength Skin: Skin is warm, dry, no rashes or lesions. Psychiatric: Cooperative, appropriate mood and affect Neurologic: Mental status: Orientation: AOx3 Communication: Patient is cooperative and can follow simple instructions Language: Speech fluent, normal rate and volume, comprehension intact Cranial nerves: CN II: Visual thompson intact CN III: Pupils equal, round, and reactive to light CN III, IV, : No gaze deviation, no nystagmus Horizontal pursuit: intact Vertical pursuit: intact Ptosis: none CN V: Facial sensation to light touch intact bilaterally at the forehead, cheeks, and jaw line CN VII: Face symmetric, no facial droop appreciated CN VIII: Able to hear and respond to conversation at normal volume, intact to finger rub CN IX, X: Palate elevation symmetric, uvula midline CN XI: Head turn and shoulder shrug strong, symmetric bilaterally CN XII: Normal tongue protrusion without deviation, no fasciculations Motor: Normal bulk and tone No atrophy No abnormal movements or fasciculations +Straight leg raise test b/l Muscle strength: Shoulder abduction: R 5/5 L 5/5 Elbow flexion: R 5/5 L 5/5 Elbow extension: R 5/5 L 5/5 Hip flexion: R 5/5 L 5/5 Hip extension: R 5/5 L 5/5 Sensory: RUE: Light touch intact LUE: Light touch intact RLE: Light touch intact LLE: Light touch intact Reflexes: Biceps (C5-6): R 2+ L 2+ Brachioradialis (C5-6): R 2+ L 2+ Triceps (C7-8): R 2+ L 2+ Patellae (L3-4): R 2+ L 2+ No clonus Plantar reflex downgoing bilaterally Cerebellum: RUE: No dysmetria (finger to nose) LUE: No dysmetria (finger to nose) Patient was able to stand with support. Objective Labs 01/21/25 04:40 01/21/25 04:40 Labs: Laboratory Results - last 24 hr 01/20/25 01/20/25 01/20/25 04:58 11:05 20:18 WBC RBC Hgb Hct MCV MCH MCHC RDW Std Deviation Plt Count Neut % (Auto) Lymph % (Auto) [place] % (Auto) Eos % (Auto) Baso % (Auto) Neut # (Auto) Lymph # (Auto) [place] # (Auto) Eos # (Auto) Baso # (Auto) Immature Gran # (Auto) Absolute Nucleated RBC Immature Gran % Nucleated RBC % Sodium Potassium Chloride Carbon Dioxide Anion Gap BUN Creatinine Estim Creat Clear Calc eGFR BUN/Creatinine Ratio Glucose Calculated Osmolality Calcium Corrected Calcium Phosphorus Magnesium Total Bilirubin AST ALT Alkaline Phosphatase Total Protein Albumin Globulin Albumin/Globulin Ratio TSH 2.40 Free T4 1.34 CSF Appearance Turbid A CSF Color Bloody A CSF WBC 52907 CSF RBC 1749070 CSF Cell Count Tube # Tube # 4 CSF Mononuclear WBCs 95 CSF Polynuclear WBCs 5.0 CSF Glucose 125 H CSF Total Protein > 2500 H Coccidioides IgM Ab Negative HIV 1&2 Antibody Rapid Non-Reactive Misc Test Result 01/20/25 01/21/25 21:47 04:40 WBC 23.9 H RBC 2.86 L Hgb 8.5 L Hct 25.0 L MCV 87 MCH 29.7 MCHC 34.0 RDW Std Deviation 62.1 H Plt Count 144 Neut % (Auto) 84 H Lymph % (Auto) 2 L [place] % (Auto) 11 Eos % (Auto) 0 Baso % (Auto) 0 Neut # (Auto) 20.1 H Lymph # (Auto) 0.5 L [place] # (Auto) 2.6 H Eos # (Auto) 0.1 Baso # (Auto) 0.0 Immature Gran # (Auto) 0.52 H Absolute Nucleated RBC 0.00 Immature Gran % 2 H Nucleated RBC % 0 Sodium 137 Potassium 4.9 Chloride 95 L Carbon Dioxide 24.4 Anion Gap 18 H BUN 38 H Creatinine 5.6 H* D Estim Creat Clear Calc 12.5 L eGFR 11 L* BUN/Creatinine Ratio 7 L Glucose 165 H D Calculated Osmolality 286 Calcium 9.3 Corrected Calcium 9.5 Phosphorus 6.5 H Magnesium 2.1 Total Bilirubin 2.7 H AST 234 H ALT 149 H Alkaline Phosphatase 227 H Total Protein 7.5 Albumin 3.7 Globulin 3.8 H Albumin/Globulin Ratio 1.0 L TSH Free T4 CSF Appearance CSF Color CSF WBC CSF RBC CSF Cell Count Tube # CSF Mononuclear WBCs CSF Polynuclear WBCs CSF Glucose CSF Total Protein Coccidioides IgM Ab HIV 1&2 Antibody Rapid Misc Test Result Cancelled ABG Interpretation ABG results: 01/15/25 19:57 VBG pH 7.48 VBG pCO2 27 L VBG pO2 54 VBG Base Excess -2 Quality Measures Quality Measures VTE prophylaxis Assessment & Plan Assessment Current Active Medications: Generic Name Dose Route Start Last Admin Trade Name Freq PRN Reason Stop Dose Admin Acetaminophen 650 mg 01/15/25 18:19 01/20/25 07:31 Acetaminophen 325 Mg Tablet PO 02/14/25 18:18 650 mg Q6H PRN Administration Fever >101.5 Acetaminophen 650 mg 01/15/25 18:19 01/18/25 02:36 Acetaminophen 325 Mg Tablet PO 02/14/25 18:18 650 mg Q6H PRN Administration PAIN SCALE 1-3 (mild Apixaban 5 mg 01/19/25 09:00 01/20/25 20:51 Apixaban 2.5 Mg Tablet PO 02/18/25 08:59 5 mg BID ADRIANA Administration Atorvastatin Calcium 80 mg 01/15/25 21:00 01/20/25 20:51 Atorvastatin Calcium 20 Mg Tablet PO 02/14/25 20:59 80 mg HS ADRIANA Administration Calcium Acetate 2,001 mg 01/16/25 12:00 01/20/25 20:51 Calcium Acetate 667 Mg Tablet PO 02/15/25 11:59 Not Given TIDWM ADRIANA Dextrose 25 ml 01/15/25 23:44 Dextrose 50%-Water Inj 50 Ml Syringe IV 02/14/25 23:43 Q15MIN PRN BG 50-70 responsive npo pt Dextrose 50 ml 01/15/25 23:44 Dextrose 50%-Water Inj 50 Ml Syringe IV 02/14/25 23:43 Q15MIN PRN BG <50 OR BG <70 & pt unresponsive Glucagon 1 mg 01/15/25 23:44 Glucagon Inj 1 Mg Vial IM Q15MIN PRN BG <70, and no IV access Heparin Sodium (Porcine) 3,300 unit 01/15/25 16:07 01/20/25 18:59 Heparin Sod Inj 1000 Unit/Ml Vial 10 Ml INDWELLCAT 01/29/25 16:06 3,300 unit PRN PRN Administration DIALYSIS Albumin Human 25 gm in 100 mls @ 100 mls/min 01/20/25 14:00 01/20/25 17:30 Albuminar-25 Ivpb IV 100 mls/min PRN PRN Administration DIALYSIS Insulin Human Lispro 0 unit 01/16/25 07:30 01/20/25 19:08 Insulin Lispro (Admelog) 1 Unit/0.01 Ml Unit SC 02/15/25 07:29 Not Given AC [facility] Protocol Levofloxacin 250 mg 01/21/25 09:00 Levofloxacin 250 Mg Tablet PO 02/01/25 12:00 QDAY [facility] Metoprolol Succinate 25 mg 01/17/25 09:00 01/20/25 08:33 Metoprolol Succinate Xl 25 Mg Tabcr PO 02/16/25 08:59 25 mg QDAY [facility] Administration Ondansetron HCl 4 mg 01/15/25 18:19 Ondansetron Inj 2 Mg/Ml Inj 2 Ml IVP 02/14/25 18:18 Q6H PRN NAUSEA OR VOMITING Protocol Vitamin B Complex/Vit C/Folic Acid 1 tab 01/16/25 09:00 01/20/25 08:33 Vit B12/Vit C/Fa (Nephrovite) Tablet PO 02/15/25 08:59 1 tab QDAY [facility] Administration Plan #Acute Encephalopathy Patient on HD, missed several HD appointments last week 2/2 fall with head strike. Patient expresses pain in all extremities limiting physical exam. CT head w/o, CTA head/neck, MRI negative for acute hemorrhage, mass effect, midline shift, LVO, acute infarct. CTA head/neck showed 60% stenosis intracranial left vertebral artery.50% stenosis, on the right 60% stenosis on the left Carotid doppler: Right internal carotid artery demonstrates 10-30% stenosis.Left internal carotid artery demonstrates 0-10% stenosis.No right vertebral artery flow is depicted Rhabdomyolysis r/o given CK WNL DDX: toxic/metabolic (ESRD on HD, missed HD sessions / uremia), infectious (UTI, GNR bacteremia), hypertensive encephalopathy (sBPs reach 190s) Patient spiked fever 101.5 F max, tachycardic and tachypneic with shallow abdominal breething. SpO2 appropriate on NC 2L. Lactic acid elevated 2.2 (downtrending) B12 high 1497, folate WNL, TSH and T4 WNL Blood cultures initally grew GNR, enterobacter CSF: turbid, bloody, WBC 82070, RBC >320K, monocytes 95, polynucleocyte 5, glucse high 125, protein high >2500 Cocci IgM, HIV, Hep A/B/C negative Plan - BP Management per primary team - Metoprolol succinate 25 mg daily - Abx management per primary team - Pip-tazo (01/19 - ) - Pending CSF iral panel (VDRL, HSV, WNV) - Pending serology - cocci IgG - Pending blood cultures #Paroxysmal A-fib, rate controlled [id number]: 4 HAS-BLED:3 Plan: - Management per primary team - Eliquis 5 mg BID #Hyperlipidemia Triglycerides high 310 HDL low 5 Plan: - Continue high intensity statin #Hyperparathyroidism PTH 194.9 Ca 9.7, Phos 9 Plan: - Management per primary team - Calcium acetate #Hyperphosphatemia Phos elevated 9 Plan: - Management per primary team - Phoslo #ESRD on HD M/W/F Plan: - Management per primary team #Diabetes mellitus type 2 Hgb A1C 6.1 (down from 6.9) Plan: - Management per primary team - SSI #Transaminitis Abdominal US: negative for ascites CT abdomen/pelvis: Cirrhosis versus primary hepatocellular disease. Cholelithiasis. 32 mm anterior right renal mass. No abdominal or pelvic abscess LFT uptrending Total bilirubin elevated and uptrending Plan: - Management per primary team #Renal mass Incidental finding on MRI w/o Plan: - Management per primary team - MRI w/ contrast abdomen ordered #Neck pain #Sciatica MRI C spine: C4-C5 4 mm central osteophyte disc complex. C5-C6 5 mm central subarticular also by disc complex with advanced bilateral neural foraminal stenosis. C6-C7 advanced left neural foraminal stenosis. Abnormal heterogeneous signal throughout all visualized cervical vertebral bodies MRI T spine: No thoracic fracture. Mild diffuse thoracic disc narrowing Heterogeneous marrow signal involving thoracic vertebral bodies MRI L spine: Abnormal marrow signal. L5-S1 4 mm central lumbar disc bulge extending to the foraminal regions with mild bilateral L5 ganglionic compression +straight leg raise test b/l Plan: - MRI L spine w/ contrast ordered Plan discussed with Dr. Abdiaziz Cruz, PGY1 Attending Provider Attestation/Addendum I personally have seen and examined the patient at the bedside and agree with resident's findings, assessment and plan of care. Patient's mental status has significantly improved, close to baseline. Patient is able to move both upper and lower extremities without significant pain. He is able to carry on a conversation. Will encourage him to participate with the physical therapy session and proceed with ambulation and then decide about discharge. will consider doing EMG nerve conduction study of both lower extremities as an outpatient to evaluate for lumbosacral radiculopathy/neuropathy.
[2025-01-21] MEDS: INSULIN LISPRO (AdmeLOG) 1 UNIT/0.01 ML UNIT SC ×3 (08:33→17:44)
[2025-01-21] MEDS: APIXABAN 2.5 MG TABLET 5 MG PO ×2 (08:34→20:55)
[2025-01-21] MEDS: METOPROLOL SUCCINATE XL 25 MG TABCR PO (08:34)
[2025-01-21] MEDS: CALCIUM ACETATE 667 MG TABLET 2001 MG PO ×3 (08:35→17:44)
[2025-01-21] MEDS: VIT B12/Vit C/FA (Nephrovite) TABLET 1 TAB PO (08:35)
[2025-01-21] MEDS: LEVOFLOXACIN 250 MG TABLET PO (08:35)
--- NOTE | 2025-01-21 08:35 | ESPR_ITS ---
Documentation for date of: 01/21/25 Subjective Subjective Interval history: Patient seen at bedside. No overnight events. Patient states that the abdomen appears a little distended, but he has had a bowel movement today. Patient denies nausea,vomiting, no chest pain, no shortness of breath. Patient states that he has not been able to sleep well at night. Exam Vital Signs Temp Pulse Resp BP Pulse Ox O2 Del Method O2 Flow Rate 98.4 F 97 28 H 113/61 97 Nasal Cannula 5 01/21/25 07:59 01/21/25 07:59 01/21/25 07:59 01/21/25 07:59 01/21/25 07:59 01/21/25 07:59 01/21/25 07:59 Narrative Exam GENERAL APPEARANCE: alert & oriented x4, no acute distress, R tunneled dialysis catheter present HEENT: Normocephalic, atraumatic; pupils equal, round, reactive to light; EOMI; mucous membranes pink, moist; oropharynx clear NECK: Supple LUNGS: CTABL; no wheezes, no rales, no rhonchi HEART: Regular rate, regular rhythm; normal S1, S2; no murmurs ABDOMEN: moderate distention; normal BS; no tenderness, no guarding, no rebound; no masses, no organomegaly, no hernia EXTREMITIES: atraumatic; no edema NEUROLOGIC: no facial droop, right arm reduced strength, able to move all 4 limbs PSYCHIATRIC: appropriate mood and affect SKIN: warm, dry, normal color; no rashes Objective Labs 01/21/25 04:40 01/21/25 04:40 Labs: Laboratory Results - last 24 hr 01/20/25 01/20/25 01/20/25 04:58 11:05 20:18 WBC RBC Hgb Hct MCV MCH MCHC RDW Std Deviation Plt Count Neut % (Auto) Lymph % (Auto) Nash % (Auto) Eos % (Auto) Baso % (Auto) Neut # (Auto) Lymph # (Auto) Nash # (Auto) Eos # (Auto) Baso # (Auto) Immature Gran # (Auto) Absolute Nucleated RBC Immature Gran % Nucleated RBC % Sodium Potassium Chloride Carbon Dioxide Anion Gap BUN Creatinine Estim Creat Clear Calc eGFR BUN/Creatinine Ratio Glucose Calculated Osmolality Calcium Corrected Calcium Phosphorus Magnesium Total Bilirubin AST ALT Alkaline Phosphatase Total Protein Albumin Globulin Albumin/Globulin Ratio TSH 2.40 Free T4 1.34 CSF Appearance Turbid A CSF Color Bloody A CSF WBC 96799 CSF RBC [id number] CSF Cell Count Tube # Tube # 4 CSF Mononuclear WBCs 95 CSF Polynuclear WBCs 5.0 CSF Glucose 125 H CSF Total Protein > 2500 H Coccidioides IgM Ab Negative HIV 1&2 Antibody Rapid Non-Reactive Misc Test Result 01/20/25 01/21/25 21:47 04:40 WBC 23.9 H RBC 2.86 L Hgb 8.5 L Hct 25.0 L MCV 87 MCH 29.7 MCHC 34.0 RDW Std Deviation 62.1 H Plt Count 144 Neut % (Auto) 84 H Lymph % (Auto) 2 L Nash % (Auto) 11 Eos % (Auto) 0 Baso % (Auto) 0 Neut # (Auto) 20.1 H Lymph # (Auto) 0.5 L Nash # (Auto) 2.6 H Eos # (Auto) 0.1 Baso # (Auto) 0.0 Immature Gran # (Auto) 0.52 H Absolute Nucleated RBC 0.00 Immature Gran % 2 H Nucleated RBC % 0 Sodium 137 Potassium 4.9 Chloride 95 L Carbon Dioxide 24.4 Anion Gap 18 H BUN 38 H Creatinine 5.6 H* D Estim Creat Clear Calc 12.5 L eGFR 11 L* BUN/Creatinine Ratio 7 L Glucose 165 H D Calculated Osmolality 286 Calcium 9.3 Corrected Calcium 9.5 Phosphorus 6.5 H Magnesium 2.1 Total Bilirubin 2.7 H AST 234 H ALT 149 H Alkaline Phosphatase 227 H Total Protein 7.5 Albumin 3.7 Globulin 3.8 H Albumin/Globulin Ratio 1.0 L TSH Free T4 CSF Appearance CSF Color CSF WBC CSF RBC CSF Cell Count Tube # CSF Mononuclear WBCs CSF Polynuclear WBCs CSF Glucose CSF Total Protein Coccidioides IgM Ab HIV 1&2 Antibody Rapid Misc Test Result Cancelled ABG Interpretation ABG results: 01/15/25 19:57 VBG pH 7.48 VBG pCO2 27 L VBG pO2 54 VBG Base Excess -2 Quality Measures Quality Measures VTE prophylaxis Assessment & Plan Assessment Current Active Medications: Generic Name Dose Route Start Last Admin Trade Name Freq PRN Reason Stop Dose Admin Acetaminophen 650 mg 01/15/25 18:19 01/20/25 07:31 Acetaminophen 325 Mg Tablet PO 02/14/25 18:18 650 mg Q6H PRN Administration Fever >101.5 Acetaminophen 650 mg 07/02/25 18:19 01/18/25 02:36 Acetaminophen 325 Mg Tablet PO 02/14/25 18:18 650 mg Q6H PRN Administration PAIN SCALE 1-3 (mild Apixaban 5 mg 01/19/25 09:00 01/20/25 20:51 Apixaban 2.5 Mg Tablet PO 02/18/25 08:59 5 mg BID ADRIANA Administration Atorvastatin Calcium 80 mg 01/15/25 21:00 01/20/25 20:51 Atorvastatin Calcium 20 Mg Tablet PO 02/14/25 20:59 80 mg HS ADRIANA Administration Calcium Acetate 2,001 mg 01/16/25 12:00 01/20/25 20:51 Calcium Acetate 667 Mg Tablet PO 02/15/25 11:59 Not Given TIDWM ADRIANA Dextrose 25 ml 01/15/25 23:44 Dextrose 50%-Water Inj 50 Ml Syringe IV 02/14/25 23:43 Q15MIN PRN BG 50-70 responsive npo pt Dextrose 50 ml 01/15/25 23:44 Dextrose 50%-Water Inj 50 Ml Syringe IV 02/14/25 23:43 Q15MIN PRN BG <50 OR BG <70 & pt unresponsive Glucagon 1 mg 01/15/25 23:44 Glucagon Inj 1 Mg Vial IM Q15MIN PRN BG <70, and no IV access Heparin Sodium (Porcine) 3,300 unit 01/15/25 16:07 01/20/25 18:59 Heparin Sod Inj 1000 Unit/Ml Vial 10 Ml INDWELLCAT 01/29/25 16:06 3,300 unit PRN PRN Administration DIALYSIS Albumin Human 25 gm in 100 mls @ 100 mls/min 01/20/25 14:00 01/20/25 17:30 Albuminar-25 Ivpb IV 100 mls/min PRN PRN Administration DIALYSIS Insulin Human Lispro 0 unit 01/16/25 07:30 01/20/25 19:08 Insulin Lispro (Admelog) 1 Unit/0.01 Ml Unit SC 02/15/25 07:29 Not Given AC [facility] Protocol Levofloxacin 250 mg 01/21/25 09:00 Levofloxacin 250 Mg Tablet PO 02/01/25 12:00 QDAY ADRIANA Metoprolol Succinate 25 mg 01/17/25 09:00 01/20/25 08:33 Metoprolol Succinate Xl 25 Mg Tabcr PO 02/16/25 08:59 25 mg QDAY ADRIANA Administration Ondansetron HCl 4 mg 01/15/25 18:19 Ondansetron Inj 2 Mg/Ml Inj 2 Ml IVP 02/14/25 18:18 Q6H PRN NAUSEA OR VOMITING Protocol Vitamin B Complex/Vit C/Folic Acid 1 tab 01/16/25 09:00 01/20/25 08:33 Vit B12/Vit C/Fa (Nephrovite) Tablet PO 02/15/25 08:59 1 tab QDAY ADRIANA Administration Plan Assessment 59 year old male with history of hypertension, diabetes, hyperlipidemia, ESRD admitted for acute encepahlopathy. #Unspecified infectious disease #Previous Enterobacter cloacae Bacteremia - resolved #Enterobacter cloacae UTI White blood cell 23.9 Blood culture (+) x2 sources on 01/15/25 - Enterobacter cloacae UA: WBC 217, Leuk (+) on 01/15/25 Urine Cx 01/15/25 - Enterobacter cloacae Blood cultures 01/18/25 - negative Blood cultures 01/19/2025 gram-positive cocci positive but the other tube showed no growth?so likely contaminant Patient not on steroids Plan: - Dr. Crocker consulted and started him on levofloxacin to 250 mg p.o. daily (01/21/2025 - - Neurology consulted - LP performed yesterday?follow-up on results #?Right renal mass ? new finding #?Metastatic disease CT abdomen on 01/19/2025 showed 32 mm anterior right renal mass MR cervical, thoracic and lumbar spine without contrast on 01/17/2025 showed abnormal heterogeneous marrow signal Neurology initially said MRI spine findings could be seen in hyperparathyroidsm/Hyperphosphatemia/ESRD and not specific for metastasis. However given recent finding of a right renal mass it is warranted to investigate further. Dr. Hannah said MRI contrast okay to give Plan MRI abdomen without/w contrast plus MRI lumbar w/ contrast ordered #Anuria?common for patient Patient has not been making any urine in the past 24 hours. Patient last made urine on January 17 400 mL Patient mentions that he only pees once a few weeks at home so this might all be normal for him On abdominal exam abdomen appears distended, soft to palpation, no tenderness to palpation Plan IV fluid bolus 500 cc of normal saline Bladder scan #Acute Encephalopathy, improving #CVA - ruled out #Generalized weakness #Myalgias DDX: toxic/metabolic (ESRD on HD, missed HD sessions), infectious (UTI), hypertensive encephalopathy (sBPs reach 190s) In the ED, BUN was 122, Cr was 13.8, and eGFR was 4. Patient missed several HD appts. Teleneuro assessed patient and noted NIHSS score of 18. CT head w/o 01/15/25: Negative for acute hemorrhage, mass effect or midline shift CTA head/neck 01/15/25: No significant neck arterial stenoses. No critical vertebral artery stenoses in the neck. 60% stenosis intracranial left vertebral artery. Attenuated basilar artery which does fill with no large vessel occlusions involving the basilar artery or posterior cerebral branches. Heavy calcification juxtasellar portions internal carotid arteries, 50% stenosis on the right 60% stenosis on the left. No middle cerebral or anterior cerebral artery large vessel occlusions CXR: Moderate vascular congestion WBC elevated, UA + UTI, serum ammonia WNL, TSH WNL Carotid dopper (01/16/25): Right internal carotid artery demonstrates 10-30% stenosis. Left internal carotid artery demonstrates 0-10% stenosis. No right vertebral artery flow is depicted Brain MRI with MRA negative (01/16/25). Negative for acute hemorrhage mass effect or midline shift. No acute infarct Echo 01/17/2025: Left ventricle dimensions normal with evidence of severe left ventricle hypertrophy asymmetric septal hypertrophy with septal thickness of 20 mm with normal left ventricle function ejection fraction of 60%. Grade 1 diastolic dysfunction is present. The RV is normal in size and systolic function. Aortic Valve sclerosis calcification with evidence of mild aortic stenosis gradient of peak velocity 1.7 m/s Mitral annulus calcification with evidence of mild mitral regurgitation. Plan: - Neurology following. Appreciate Recs - Nephro following. Known to Dr. Garcia, follow recs. HD [facility] schdule - Continue calcium acetate for management of hyperphosphatemia (Phos 9 07/06 AM labs) #Hyperparathyroidism #2/2 to ESRD PTH - 194.9 Ca 9.3, Phos 6.5 Plan Continue Calcium acetate ?phosphate improved from yesterday #HAGMA #Lactic Acidosis Lactate 2.7, AG 18 Likely related to Lactate HCO3- 24 Plan: - Trend Lactate - Nephrology following, appreciate recs #Renal cyst - bilateral #Renal mass ruled out CT abdomen pelvis wo con Hepatosplenomegaly. Trace ascites. Tiny bilateral renal calculi. Recommend renal sonography follow-up to exclude 32 mm anterior right renal mass. Urinary bladder wall thickening, differential would include cystitis Renal US - ruled renal mass. Bilateral renal cortical thinning. Mild to moderate bilateral renal parenchymal scar formation. 5 mm left renal calculus Plan: - Monitor worsening clinical status (fever, new abdominal pain) #Hepatosplenomegaly #Cholelithiasis #Mild cirrhosis #?Ascites CT abdomen showed Liver mildly irregular in contour. Hepatomegaly 19 cm. Splenomegaly 14 cm. Cholelithiasis. Gallbladder wall appears mildly thickened. Plan: Monitor worsening clinical status (fever, new abdominal pain) Patient to f/u with PCP for further w/u of cirrhosis Repeat Abd US limited #Insulin Independent Type II Diabetes mellitus type 2 Hgb A1C 6.1 (down from 6.9). Well controlled. Patient is not on diabetic meds at home, mentions diet-controlled. Glucose 173 in AM - patient does have bacteremia Plan: ? Sliding scale insulin ? Hypoglycemic protocol in place ? Blood sugar checks with meals #Paroxysmal A-fib, rate controlled [id number]: 4 HAS-BLED:3 Plan: - Eliquis 5 mg BID - Keep Mag > 2 and K > 4 - Telemetry - Home Metoprolol XL 25 mg qday #Hyperlipidemia LDL 83 Plan: - Continue home Atorvastatin 80mg daily #Health Maintenance Disposition: Telemetry DVT prophylaxis: Eliquis 5 mg BID GI prophylaxis: None indicated at this time Diet: Renal CODE STATUS: DNR Case discussed with my attending Dr. Alejo and senior resident Dr Raz Romero MD PGY-1 Attending Provider Attestation/Addendum I attest that I was physically present for the evaluation, physical examination, lab and imaging review of the patient with the residents. I discussed the case with the residents and agree with the findings and plans of care as documented above. At bedside today, patient continues to be sleepy. Wakes up on calling but falls asleep easily. Denies any new complaints, able to move all limbs but decreased strength all over. Continues to be on broad spectrum antibiotics, had enterobacter UTI and bacteremia, developed fever in between wile being on antibiotics, ID following appreciate recommendations. Blood culture from 01/19/2025 grew GPC in 1 bottle, likely contaminant. WBC remains persistently elevated. Prior abdominal imaging concerning for Renal mass, multiple metastatic spinal osseus disease, we will obtain MRI abdomen and lumbar spine with contrast to confirm/rule out. Lumbar puncture showed bloody CSF with high protein. Culture and viral studies pending. Neurology following closely, appreciate recs. Nephrology following closely and arranging HD. Ally Alejo MD
[2025-01-21 10:04] LABS: Lactate (Lactic Acid) 2.7 mMol/L (0.4-2.0)
--- NOTE | 2025-01-21 10:49 | PD.RESPRO ---
Documentation for date of: 01/21/25 Subjective Subjective Interval history: Overnight events: No acute events overnight. Patient was seen and examined at bedside. AM vitals and labs reviewed. BUN 38, creatinine 5.6, and GFR 11. Phosphate 6.5. Hemodialysis was performed yesterday at 1523. The hemodialysis duration was 3 hours and 4 minutes with net fluid removal of 2 L. No significant issues were noted with yesterday's hemodialysis. Ins/outs 1380/0. Lumbar puncture was performed yesterday. CSF analysis showed 4+ white blood cells, no bacteria on Gram stain, and fluid was bloody with elevated protein and glucose. Viral panel analysis of CSF pending. During today's visit, the patient was noticeably more tired compared to yesterday. The patient would frequently fall back asleep in between questions. Otherwise the patient had no other complaints at this time. The patient was on 4 L of oxygen nasal cannula at the time. Patient expressed that has not been urinating the past few days. Last known date of urination was 01/17/25 per chart review. Review of systems otherwise negative except for what is mentioned above. Exam Vital Signs Temp Pulse Resp BP Pulse Ox O2 Del Method O2 Flow Rate 98.4 F 97 28 H 113/61 97 Nasal Cannula 5 01/21/25 07:59 01/21/25 08:34 01/21/25 07:59 01/21/25 08:34 01/21/25 07:59 01/21/25 07:59 01/21/25 07:59 Narrative Exam Physical Exam: General: Sleepy, no acute distress. Skin: Warm, dry, intact, no obvious rash. Head: Normocephalic, atraumatic. Cardiovascular: Regular rate and rhythm, no murmur, +S1/S2. Respiratory: Lungs are clear to auscultation, respirations unlabored, no crackles, no wheezing. Gastrointestinal: Soft, nontender, distended. No guarding or rebound tenderness. Extremities: No edema, no cyanosis, no clubbing. 1+ radial pulse bilaterally, 1+ pedal pulse bilaterally. Neuro: No focal deficits observed. Conversant, moving all extremities. No overt cerebellar signs/incoordination. Psychiatric: Cooperative, appropriate affect. Objective Labs 01/25/25 05:44 01/25/25 05:44 Labs: Laboratory Results - last 24 hr 01/20/25 01/20/25 01/20/25 04:58 11:05 20:18 WBC RBC Hgb Hct MCV MCH MCHC RDW Std Deviation Plt Count Neut % (Auto) Lymph % (Auto) [place] % (Auto) Eos % (Auto) Baso % (Auto) Neut # (Auto) Lymph # (Auto) [place] # (Auto) Eos # (Auto) Baso # (Auto) Immature Gran # (Auto) Absolute Nucleated RBC Immature Gran % Nucleated RBC % Sodium Potassium Chloride Carbon Dioxide Anion Gap BUN Creatinine Estim Creat Clear Calc eGFR BUN/Creatinine Ratio Glucose Calculated Osmolality Lactic Acid Calcium Corrected Calcium Phosphorus Magnesium Total Bilirubin AST ALT Alkaline Phosphatase Total Protein Albumin Globulin Albumin/Globulin Ratio CSF Appearance Turbid A CSF Color Bloody A CSF WBC 96508 CSF RBC 9150166 CSF Cell Count Tube # Tube # 4 CSF Mononuclear WBCs 95 CSF Polynuclear WBCs 5.0 CSF Glucose 125 H CSF Total Protein > 2500 H Coccidioides IgM Ab Negative HIV 1&2 Antibody Rapid Non-Reactive Misc Test Result 01/20/25 01/21/25 01/21/25 21:47 04:40 09:50 WBC 23.9 H RBC 2.86 L Hgb 8.5 L Hct 25.0 L MCV 87 MCH 29.7 MCHC 34.0 RDW Std Deviation 62.1 H Plt Count 144 Neut % (Auto) 84 H Lymph % (Auto) 2 L [place] % (Auto) 11 Eos % (Auto) 0 Baso % (Auto) 0 Neut # (Auto) 20.1 H Lymph # (Auto) 0.5 L [place] # (Auto) 2.6 H Eos # (Auto) 0.1 Baso # (Auto) 0.0 Immature Gran # (Auto) 0.52 H Absolute Nucleated RBC 0.00 Immature Gran % 2 H Nucleated RBC % 0 Sodium 137 Potassium 4.9 Chloride 95 L Carbon Dioxide 24.4 Anion Gap 18 H BUN 38 H Creatinine 5.6 H* D Estim Creat Clear Calc 12.5 L eGFR 11 L* BUN/Creatinine Ratio 7 L Glucose 165 H D Calculated Osmolality 286 Lactic Acid 2.7 H Calcium 9.3 Corrected Calcium 9.5 Phosphorus 6.5 H Magnesium 2.1 Total Bilirubin 2.7 H AST 234 H ALT 149 H Alkaline Phosphatase 227 H Total Protein 7.5 Albumin 3.7 Globulin 3.8 H Albumin/Globulin Ratio 1.0 L CSF Appearance CSF Color CSF WBC CSF RBC CSF Cell Count Tube # CSF Mononuclear WBCs CSF Polynuclear WBCs CSF Glucose CSF Total Protein Coccidioides IgM Ab HIV 1&2 Antibody Rapid Misc Test Result Cancelled ABG Interpretation ABG results: 01/15/25 19:57 VBG pH 7.48 VBG pCO2 27 L VBG pO2 54 VBG Base Excess -2 Quality Measures Quality Measures VTE prophylaxis Assessment & Plan Assessment Current Active Medications: Generic Name Dose Route Start Last Admin Trade Name Kasandra PRN Reason Stop Dose Admin Acetaminophen 650 mg 01/15/25 18:19 01/20/25 07:31 Acetaminophen 325 Mg Tablet PO 02/14/25 18:18 650 mg Q6H PRN Administration Fever >101.5 Acetaminophen 650 mg 01/15/25 18:19 01/18/25 02:36 Acetaminophen 325 Mg Tablet PO 02/14/25 18:18 650 mg Q6H PRN Administration PAIN SCALE 1-3 (mild Apixaban 5 mg 01/19/25 09:00 01/21/25 08:34 Apixaban 2.5 Mg Tablet PO 02/18/25 08:59 5 mg BID ADRIANA Administration Atorvastatin Calcium 80 mg 01/15/25 21:00 01/20/25 20:51 Atorvastatin Calcium 20 Mg Tablet PO 02/14/25 20:59 80 mg HS ADRIANA Administration Calcium Acetate 2,001 mg 01/16/25 12:00 01/21/25 08:35 Calcium Acetate 667 Mg Tablet PO 02/15/25 11:59 2,001 mg TIDWM ADRIANA Administration Dextrose 25 ml 01/15/25 23:44 Dextrose 50%-Water Inj 50 Ml Syringe IV 02/14/25 23:43 Q15MIN PRN BG 50-70 responsive npo pt Dextrose 50 ml 01/15/25 23:44 Dextrose 50%-Water Inj 50 Ml Syringe IV 02/14/25 23:43 Q15MIN PRN BG <50 OR BG <70 & pt unresponsive Glucagon 1 mg 01/15/25 23:44 Glucagon Inj 1 Mg Vial IM Q15MIN PRN BG <70, and no IV access Heparin Sodium (Porcine) 3,300 unit 01/15/25 16:07 01/20/25 18:59 Heparin Sod Inj 1000 Unit/Ml Vial 10 Ml INDWELLCAT 01/29/25 16:06 3,300 unit PRN PRN Administration DIALYSIS Albumin Human 25 gm in 100 mls @ 100 mls/min 01/20/25 14:00 01/20/25 17:30 Albuminar-25 Ivpb IV 100 mls/min PRN PRN Administration DIALYSIS Insulin Human Lispro 0 unit 01/16/25 07:30 01/21/25 08:33 Insulin Lispro (Admelog) 1 Unit/0.01 Ml Unit SC 02/15/25 07:29 3 unit AC ADRIANA Administration Protocol Levofloxacin 250 mg 01/21/25 09:00 01/21/25 08:35 Levofloxacin 250 Mg Tablet PO 02/01/25 12:00 250 mg QDAY ADRIANA Administration Metoprolol Succinate 25 mg 01/17/25 09:00 01/21/25 08:34 Metoprolol Succinate Xl 25 Mg Tabcr PO 02/16/25 08:59 25 mg QDAY ADRIANA Administration Ondansetron HCl 4 mg 01/15/25 18:19 Ondansetron Inj 2 Mg/Ml Inj 2 Ml IVP 02/14/25 18:18 Q6H PRN NAUSEA OR VOMITING Protocol Vitamin B Complex/Vit C/Folic Acid 1 tab 01/16/25 09:00 01/21/25 08:35 Vit B12/Vit C/Fa (Nephrovite) Tablet PO 02/15/25 08:59 1 tab QDAY ADRIANA Administration Plan Mr. Springer is a 59?year old male with a relevant medical history of ESRD on HD // followed by Dr. Garcia, HTN, T2DM, and HLD who presents with altered mental status. Nephrology was consulted for the patient's hemodialysis management. #ESRD on HD /W/ #Uremia Patient is well known to Dr. Garcia. BUN, Cr, and eGFR were 122, 13.8, and 4 respectively on admission, suggesting the patient was not able to attend one or more of his HD sessions. This was later confirmed by his son who stated that he missed several sessions last week. Increased BUN may explain the altered mental status due to uremic encephalopathy. - Performed HD 01/15, 01/16, 01/18, and 01/20. - Planning another HD session tomorrow in accordance to [facility] HD schedule. - Continue calcium acetate 2001 mg for management of hyperphosphatemia. - Bladder US to assess if urinary retention is present given several days of anuria and continued AMS. - Patient cleared to have MRI with contrast if given adequate hydration before and after contrast. - Continue to monitor renal function - Nephrology will continue to follow Patient was discussed with the Nephrology attending, Dr. Garcia. Thank you for allowing us to participate in the care of this patient. Bebeto Pino, PGY-1 Attending Provider Attestation/Addendum Agree with assessment and plan and finding of resident. Pastor Garcia MD
[2025-01-21] MEDS: ACETAMINOPHEN 325 MG TABLET 650 MG PO (12:25)
--- NOTE | 2025-01-21 12:28 | PC.SS ---
Addendum entered by Marva Ibrahim 01/23/25 14:49: SS updated Darby at [facility], updated clinicals also sent vis [facility] Addendum entered by Marva Ibrahim 01/22/25 08:18: SS spoke to Ric, pt son son in regards to SNF options, there #1 choice is [facility] and #2 [facility] Original Note: SS attempted over the phone contact with pt son, Ric, in regards to SNF choice. No answer. VM left.
[2025-01-21 12:42] LABS: Cocci Serology, IgG Negative (Negative)
[2025-01-21 13:00] LABS: Reflex Lactate? Y
[2025-01-21 14:22] LABS: Lactic Acid, 3 HR 2.9 mMol/L (0.4-2.0)
[2025-01-21] MEDS: SODIUM CHLORIDE 0.9% 500 ML 500 ML 999 ML IV (15:35)
[2025-01-21 17:18] LABS: Lactate (Lactic Acid) 2.1 mMol/L (0.4-2.0)
[2025-01-21 20:14] LABS: Reflex Lactate? Y
[2025-01-21] MEDS: ATORVASTATIN CALCIUM 20 MG TABLET 80 MG PO (20:54)
[2025-01-21 21:03] LABS: Lactate (Lactic Acid) 2.0 mMol/L (0.4-2.0)
[2025-01-22] VITALS (24 sets, daily range): BP systolic 85–131; BP diastolic 48–69; PULSE 71–105; RESP 7–24; TEMP 36.1–36.4; O2SAT 91–100; BMI 26.7
--- NOTE | 2025-01-22 00:22 | PD.EVENT ---
Documentation for date of: 01/22/25 Date of procedure: 01/20/25 Pre-op diagnosis: AMS Post-op diagnosis: Same Consent signed by: brother Position: lateral decubitus and sitting Prep: betadine Anesthesia: 1 % Lidocaine Sedation: none Needle size: 22ga Needle length: 3.5 Interspace: L4-5 Number of attempts: 5 Opening pressure: not done Fluids mLs collected: 10 Fluid description: bloody Complications: No Procedure performed by: Case Freed Disposition: no change
[2025-01-22] MEDS: ACETAMINOPHEN 325 MG TABLET 650 MG PO ×3 (04:54→18:18)
[2025-01-22 06:06] LABS: Basophils # (Auto) 0.0 Thou/mm3 (0.0-0.2); Basophils % (Auto) 0 % (0-2.5); Eosinophils # (Auto) 0.0 Thou/mm3 (0.0-0.5); Eosinophils % (Auto) 0 % (0-10); Hematocrit 24.1 % (41.0-53.0); Immature Granulocytes Auto 0.36 Thou/mm3 (0.00-0.00); Lymphocytes # (Auto) 0.7 Thou/mm3 (1.0-4.8); Lymphocytes % (Auto) 3 % (10-50); Mean Corpuscular HGB Conc 32.4 g/dl (31.0-37.0); Mean Corpuscular Hemoglobin 29.7 pg (25.0-35.0); Mean Corpuscular Volume 92 fL (80-100); Monocytes # (Auto) 2.2 Thou/mm3 (0.0-0.8); Monocytes % (Auto) 10 % (0-12); Neutrophils # (Auto) 19.7 Thou/mm3 (1.8-7.7); Neutrophils % (Auto) 85 % (37-80); Nucleated Red Blood Cell # 0.00 Thou/mm3 (0.00-0.00); Nucleated Red Blood Cell % 0 /100 WBC (0); Platelet Count 203 Thou/mm3 (140-440); RDW Standard Deviation 64.3 fL (35.1-43.9); Red Blood Count 2.63 Miln/mm3 (4.50-5.90); White Blood Count 23.0 Thou/mm3 (3.8-10.6)
[2025-01-22 06:10] LABS: Hemoglobin 7.8 g/dL (13.5-16.0)
[2025-01-22 06:31] LABS: Alanine Aminotransferase 188 U/L (10-49); Albumin, Serum 3.5 gm/dL (3.5-5.0); Albumin/Globulin Ratio 0.9 (1.2-2.2); Alkaline Phosphatase 234 U/L (46-116); Anion Gap 16 (7-16); Aspartate Amino Transferase 274 U/L (0-34); BUN/Creatinine Ratio 8 Ratio (12-20); Bilirubin,Total 2.2 mg/dL (0.3-1.2); Blood Urea Nitrogen 60 mg/dL (9-23); Calcium 9.6 mg/dL (8.3-10.6); Calcium (Corrected) 10.0 mg/dL (8.5-10.1); Carbon Dioxide 23.6 mMol/L (20.0-31.0); Chloride 94 mMol/L (98-107); Creatinine (Component) 7.1 mg/dL (0.6-1.3); Estimated Creatinine Clearance 9.9 mL/min (>60); Globulin 3.8 gm/dL (2.3-3.5); Glucose 196 mg/dL (74-106); Magnesium 2.3 mg/dL (1.6-2.6); Osmolality,Calculated 290 (275-295); Phosphorous 7.2 mg/dL (2.4-5.1); Potassium 5.0 mMol/L (3.4-5.1); Sodium 134 mMol/L (136-145); Total Protein 7.3 gm/dL (5.7-8.2); eGFR 8 See Note
--- NOTE | 2025-01-22 08:53 | ESPR_ITS ---
Documentation for date of: 01/22/25 Subjective Subjective Interval history: Patient seen at bedside, lethargic. Kept falling asleep during exam this AM. Upon return in the evening, patient was awake and able to converse. Exam Vital Signs Temp Pulse Resp BP Pulse Ox O2 Del Method O2 Flow Rate 96.9 F 90 19 107/48 L 96 Nasal Cannula 5 01/22/25 08:00 01/22/25 08:46 01/22/25 08:00 01/22/25 08:46 01/22/25 08:00 01/22/25 08:00 01/22/25 08:00 Narrative Exam Exam limited due to lethargy this AM. Unable to perform neuro exam in AM. Evening exam: General: No acute distress, well nourished Eye: PERRL, EOMI, normal conjunctiva, no scleral icterus HENT: Normocephalic, atraumatic, clear tympanic membranes, normal hearing, moist oral mucosa, no sinus tenderness Neck: Supple, non-tender, no carotid bruits, no JVD, no lymphadenopathy Lungs: Clear to auscultation bilaterally, non-labored respirations, symmetric chest rise Heart: Normal S1 and S2, no S3 or S4 appreciated. Normal rate and regular rhythm, no murmurs, rubs gallops, or edema. Peripheral pulses intact bilaterally, capillary refill brisk distally Abdomen: Soft, non-tender, non-distended, normal bowel sounds, no masses Musculoskeletal: Normal range of motion and strength, no tenderness or swelling Skin: Skin is warm, dry, no rashes or lesions. Neurologic: Alert, awake and oriented x3. Cranial nerves: II through XII grossly intact. Speech and language: Normal with no dysarthria or dysphasia. Patient was able to stand up from bed with support. Psychiatric: Cooperative, appropriate mood and affect Objective Labs 01/22/25 05:20 01/22/25 05:20 Labs: Laboratory Results - last 24 hr 01/20/25 01/21/25 01/21/25 11:05 09:50 13:52 WBC RBC Hgb Hct MCV MCH MCHC RDW Std Deviation Plt Count Neut % (Auto) Lymph % (Auto) [place] % (Auto) Eos % (Auto) Baso % (Auto) Neut # (Auto) Lymph # (Auto) [place] # (Auto) Eos # (Auto) Baso # (Auto) Immature Gran # (Auto) Absolute Nucleated RBC Immature Gran % Nucleated RBC % Sodium Potassium Chloride Carbon Dioxide Anion Gap BUN Creatinine Estim Creat Clear Calc eGFR BUN/Creatinine Ratio Glucose Calculated Osmolality Lactic Acid 2.7 H 2.9 H Calcium Corrected Calcium Phosphorus Magnesium Total Bilirubin AST ALT Alkaline Phosphatase Total Protein Albumin Globulin Albumin/Globulin Ratio Coccidioides IgG Ab Negative 01/21/25 01/21/25 01/22/25 17:05 20:45 05:20 WBC 23.0 H RBC 2.63 L Hgb 7.8 L Hct 24.1 L MCV 92 MCH 29.7 MCHC 32.4 RDW Std Deviation 64.3 H Plt Count 203 D Neut % (Auto) 85 H Lymph % (Auto) 3 L [place] % (Auto) 10 Eos % (Auto) 0 Baso % (Auto) 0 Neut # (Auto) 19.7 H Lymph # (Auto) 0.7 L [place] # (Auto) 2.2 H Eos # (Auto) 0.0 Baso # (Auto) 0.0 Immature Gran # (Auto) 0.36 H Absolute Nucleated RBC 0.00 Immature Gran % 2 H Nucleated RBC % 0 Sodium 134 L Potassium 5.0 Chloride 94 L Carbon Dioxide 23.6 Anion Gap 16 BUN 60 H Creatinine 7.1 H* D Estim Creat Clear Calc 9.9 L eGFR 8 L* BUN/Creatinine Ratio 8 L Glucose 196 H Calculated Osmolality 290 Lactic Acid 2.1 H 2.0 Calcium 9.6 Corrected Calcium 10.0 Phosphorus 7.2 H Magnesium 2.3 Total Bilirubin 2.2 H D AST 274 H ALT 188 H Alkaline Phosphatase 234 H Total Protein 7.3 Albumin 3.5 Globulin 3.8 H Albumin/Globulin Ratio 0.9 L Coccidioides IgG Ab ABG Interpretation ABG results: 01/15/25 19:57 VBG pH 7.48 VBG pCO2 27 L VBG pO2 54 VBG Base Excess -2 Quality Measures Quality Measures VTE prophylaxis Assessment & Plan Assessment Current Active Medications: Generic Name Dose Route Start Last Admin Trade Name Freq PRN Reason Stop Dose Admin Acetaminophen 650 mg 01/15/25 18:19 01/21/25 12:25 Acetaminophen 325 Mg Tablet PO 02/14/25 18:18 650 mg Q6H PRN Administration Fever >101.5 Acetaminophen 650 mg 01/15/25 18:19 01/22/25 04:54 Acetaminophen 325 Mg Tablet PO 02/14/25 18:18 650 mg Q6H PRN Administration PAIN SCALE 1-3 (mild Apixaban 5 mg 01/19/25 09:00 01/21/25 20:55 Apixaban 2.5 Mg Tablet PO 02/18/25 08:59 5 mg BID ADRIANA Administration Atorvastatin Calcium 80 mg 01/15/25 21:00 01/21/25 20:54 Atorvastatin Calcium 20 Mg Tablet PO 02/14/25 20:59 80 mg HS ADRIANA Administration Calcium Acetate 2,001 mg 01/16/25 12:00 01/21/25 17:44 Calcium Acetate 667 Mg Tablet PO 02/15/25 11:59 2,001 mg TIDWM ADRIANA Administration Dextrose 25 ml 01/15/25 23:44 Dextrose 50%-Water Inj 50 Ml Syringe IV 02/14/25 23:43 Q15MIN PRN BG 50-70 responsive npo pt Dextrose 50 ml 01/15/25 23:44 Dextrose 50%-Water Inj 50 Ml Syringe IV 02/14/25 23:43 Q15MIN PRN BG <50 OR BG <70 & pt unresponsive Glucagon 1 mg 01/15/25 23:44 Glucagon Inj 1 Mg Vial IM Q15MIN PRN BG <70, and no IV access Heparin Sodium (Porcine) 3,300 unit 01/15/25 16:07 01/20/25 18:59 Heparin Sod Inj 1000 Unit/Ml Vial 10 Ml INDWELLCAT 01/29/25 16:06 3,300 unit PRN PRN Administration DIALYSIS Albumin Human 25 gm in 100 mls @ 100 mls/min 01/20/25 14:00 01/20/25 17:30 Albuminar-25 Ivpb IV 100 mls/min PRN PRN Administration DIALYSIS Insulin Human Lispro 0 unit 01/16/25 07:30 01/21/25 17:44 Insulin Lispro (Admelog) 1 Unit/0.01 Ml Unit SC 02/15/25 07:29 2 unit AC ADRIANA Administration Protocol Levofloxacin 250 mg 01/21/25 09:00 01/21/25 08:35 Levofloxacin 250 Mg Tablet PO 02/01/25 12:00 250 mg QDAY ADRIANA Administration Metoprolol Succinate 25 mg 01/17/25 09:00 01/21/25 08:34 Metoprolol Succinate Xl 25 Mg Tabcr PO 02/16/25 08:59 25 mg QDAY ADRIANA Administration Ondansetron HCl 4 mg 01/15/25 18:19 Ondansetron Inj 2 Mg/Ml Inj 2 Ml IVP 02/14/25 18:18 Q6H PRN NAUSEA OR VOMITING Protocol Vitamin B Complex/Vit C/Folic Acid 1 tab 01/16/25 09:00 01/21/25 08:35 Vit B12/Vit C/Fa (Nephrovite) Tablet PO 02/15/25 08:59 1 tab QDAY ADRIANA Administration Plan #Acute Encephalopathy Patient on HD, missed several HD appointments last week 2/2 fall with head strike. Initial presentation: AMS with agitation, unable to perform physical exam 2/2 pain upon light touch to extremities Mental status initially improved then worsened No hx of IVDU, supplements per son CT head w/o, CTA head/neck, MRI negative for acute hemorrhage, mass effect, midline shift, LVO, acute infarct. CTA head/neck showed 60% stenosis intracranial left vertebral artery.50% stenosis, on the right 60% stenosis on the left Carotid doppler: Right internal carotid artery demonstrates 10-30% stenosis.Left internal carotid artery demonstrates 0-10% stenosis.No right vertebral artery flow is depicted Rhabdomyolysis r/o given CK WNL B12 high 1497, folate WNL, TSH and T4 WNL CSF: turbid, bloody, WBC 52728, RBC >320K, monocytes 95, polynucleocyte 5, glucse high 125, protein high >2500. Gram stain negative. Most likely traumatic tap with reactive pleocytosis. Patient anticoagulated. Cocci IgM/IgG, HIV, Hep A/B/C negative Blood cultures 01/15 and 01/16: GNR, Enterobacter Blood cultures 01/19: Staph epidermidis - contaminant DDX: toxic/metabolic (ESRD on HD, missed HD sessions / uremia, hyperphosphatemia), infectious (HSV, viral encephalitis, bacteremia, infective endocarditis, TB, fungal infection), inflammatory, neoplastic. Possibly compounded by delirium as patient's exam fluctuates throughout day. Plan - Pending CSF viral panel (VDRL, HSV, WNV), pending culture - Pending HSV PCR - Pending blood cultures - Given patient's fluctuations on exam throughout day with vast improvement upon evening exam, no need to repeat LP with IR or MRI brain with contrast. - Pending PER to look for infective endocarditis - Will encourage him to participate with the physical therapy when appropriate - Delirium precautions #Paroxysmal A-fib, rate controlled Plan: - Management per primary team - Eliquis 5 mg BID #Hyperlipidemia Triglycerides high 310 HDL low 5 Plan: - Continue high intensity statin #Hyperparathyroidism PTH 194.9 Ca 9.7, Phos 9 Plan: - Management per primary team - Calcium acetate #Hyperphosphatemia Phos elevated 9 Plan: - Management per primary team - Phoslo #ESRD on HD M/W/F Plan: - Management per primary team #Diabetes mellitus type 2 Hgb A1C 6.1 (down from 6.9) Plan: - Management per primary team - SSI #Transaminitis Abdominal US: negative for ascites CT abdomen/pelvis: Cirrhosis versus primary hepatocellular disease. Cholelithiasis. 32 mm anterior right renal mass. No abdominal or pelvic abscess LFT uptrending Total bilirubin elevated and uptrending Plan: - Management per primary team #Renal mass Incidental finding on MRI w/o Plan: - Management per primary team - Pending MRI w/ contrast abdomen #Neck pain #Sciatica MRI C spine: C4-C5 4 mm central osteophyte disc complex. C5-C6 5 mm central subarticular also by disc complex with advanced bilateral neural foraminal stenosis. C6-C7 advanced left neural foraminal stenosis. Abnormal heterogeneous signal throughout all visualized cervical vertebral bodies MRI T spine: No thoracic fracture. Mild diffuse thoracic disc narrowing Heterogeneous marrow signal involving thoracic vertebral bodies MRI L spine: Abnormal marrow signal. L5-S1 4 mm central lumbar disc bulge extending to the foraminal regions with mild bilateral L5 ganglionic compression +straight leg raise test b/l Plan: - MRI L spine w/ contrast if ok with nephrology - Will consider doing EMG nerve conduction study of both lower extremities as an outpatient to evaluate for lumbosacral radiculopathy/neuropathy Plan discussed with Dr. Abdiaziz Cruz, PGY1 Attending Provider Attestation/Addendum I personally have seen and examined the patient at the bedside and agreed with resident's findings, assessment and plan of care. Patient's fluctuating mental status could be delirium. As he is mental status is improved significantly, close to baseline, will consider holding the workup including lumbar puncture and MRI brain at this point.
[2025-01-22] MEDS: ALBUMIN HUMAN 25% IVPB 25 GM/100 ML BTL IV (09:21)
--- NOTE | 2025-01-22 11:23 | ESPR_ITS ---
<Statement entered by Virgilio Crandall MD - 01/22/25 22:17> I have reviewed the note and agree with the resident's assessment & plan with exceptions as below. I have personally reviewed labs, imaging, home meds/prior records, examined the patient, formulated and discussed management plan with the IM team. Pt examined at bedside. Pt continues to wax and wane with his mentation. We spoke with neurology for further recommendations, however they are recommending electro muscle studies outpatient. We we discussed with them in regards to further infectious workup and possible further imaging including PER or further brain studies. Repeating Head CT for further evaluation. Repeat hematology and chemistry in AM. Virgilio Crandall, PGY-2 Internal Medicine Documentation for date of: 01/22/25 Subjective Subjective Interval history: Patient examined at bedside today. Patient appears very confused compared to yesterday. Patient oriented to person only but does not remember date. Patient is very drowsy, but not complaining of any new abdominal pain, weakness. Exam Vital Signs Temp Pulse Resp BP Pulse Ox O2 Del Method O2 Flow Rate 97.6 F 92 18 107/62 96 Nasal Cannula 5 01/22/25 11:16 01/22/25 11:16 01/22/25 11:16 01/22/25 11:16 01/22/25 11:16 01/22/25 08:00 01/22/25 08:00 Narrative Exam GENERAL APPEARANCE: alert & oriented x1 (person), very drowsy, R tunneled dialysis catheter present HEENT: Normocephalic, atraumatic; pupils equal, round, reactive to light; EOMI; mucous membranes pink, moist; oropharynx clear NECK: Supple LUNGS: CTABL; no wheezes, no rales, no rhonchi HEART: Regular rate, regular rhythm; normal S1, S2; no murmurs ABDOMEN: moderate distention; normal BS; no tenderness, no guarding, no rebound; no masses, no organomegaly, no hernia EXTREMITIES: atraumatic; no edema NEUROLOGIC: no facial droop, upper extremity and lower extremity strength equal, able to move all 4 limbs PSYCHIATRIC: appropriate mood and affect SKIN: warm, dry, normal color; no rashes Objective Labs 01/23/25 06:10 01/23/25 06:10 Labs: Laboratory Results - last 24 hr 01/20/25 01/21/25 01/21/25 11:05 13:52 17:05 WBC RBC Hgb Hct MCV MCH MCHC RDW Std Deviation Plt Count Neut % (Auto) Lymph % (Auto) [place] % (Auto) Eos % (Auto) Baso % (Auto) Neut # (Auto) Lymph # (Auto) [place] # (Auto) Eos # (Auto) Baso # (Auto) Immature Gran # (Auto) Absolute Nucleated RBC Immature Gran % Nucleated RBC % Sodium Potassium Chloride Carbon Dioxide Anion Gap BUN Creatinine Estim Creat Clear Calc eGFR BUN/Creatinine Ratio Glucose Calculated Osmolality Lactic Acid 2.9 H 2.1 H Calcium Corrected Calcium Phosphorus Magnesium Total Bilirubin AST ALT Alkaline Phosphatase Total Protein Albumin Globulin Albumin/Globulin Ratio Coccidioides IgG Ab Negative 01/21/25 01/22/25 20:45 05:20 WBC 23.0 H RBC 2.63 L Hgb 7.8 L Hct 24.1 L MCV 92 MCH 29.7 MCHC 32.4 RDW Std Deviation 64.3 H Plt Count 203 D Neut % (Auto) 85 H Lymph % (Auto) 3 L [place] % (Auto) 10 Eos % (Auto) 0 Baso % (Auto) 0 Neut # (Auto) 19.7 H Lymph # (Auto) 0.7 L [place] # (Auto) 2.2 H Eos # (Auto) 0.0 Baso # (Auto) 0.0 Immature Gran # (Auto) 0.36 H Absolute Nucleated RBC 0.00 Immature Gran % 2 H Nucleated RBC % 0 Sodium 134 L Potassium 5.0 Chloride 94 L Carbon Dioxide 23.6 Anion Gap 16 BUN 60 H Creatinine 7.1 H* D Estim Creat Clear Calc 9.9 L eGFR 8 L* BUN/Creatinine Ratio 8 L Glucose 196 H Calculated Osmolality 290 Lactic Acid 2.0 Calcium 9.6 Corrected Calcium 10.0 Phosphorus 7.2 H Magnesium 2.3 Total Bilirubin 2.2 H D AST 274 H ALT 188 H Alkaline Phosphatase 234 H Total Protein 7.3 Albumin 3.5 Globulin 3.8 H Albumin/Globulin Ratio 0.9 L Coccidioides IgG Ab ABG Interpretation ABG results: 01/15/25 19:57 VBG pH 7.48 VBG pCO2 27 L VBG pO2 54 VBG Base Excess -2 Quality Measures Quality Measures VTE prophylaxis Assessment & Plan Assessment Current Active Medications: Generic Name Dose Route Start Last Admin Trade Name Freq PRN Reason Stop Dose Admin Acetaminophen 650 mg 01/15/25 18:19 01/21/25 12:25 Acetaminophen 325 Mg Tablet PO 02/14/25 18:18 650 mg Q6H PRN Administration Fever >101.5 Acetaminophen 650 mg 01/15/25 18:19 01/22/25 04:54 Acetaminophen 325 Mg Tablet PO 02/14/25 18:18 650 mg Q6H PRN Administration PAIN SCALE 1-3 (mild Apixaban 5 mg 01/19/25 09:00 01/21/25 20:55 Apixaban 2.5 Mg Tablet PO 02/18/25 08:59 5 mg BID ADRIANA Administration Calcium Acetate 2,001 mg 01/16/25 12:00 01/21/25 17:44 Calcium Acetate 667 Mg Tablet PO 02/15/25 11:59 2,001 mg TIDWM ADRIANA Administration Dextrose 25 ml 01/15/25 23:44 Dextrose 50%-Water Inj 50 Ml Syringe IV 02/14/25 23:43 Q15MIN PRN BG 50-70 responsive npo pt Dextrose 50 ml 01/15/25 23:44 Dextrose 50%-Water Inj 50 Ml Syringe IV 02/14/25 23:43 Q15MIN PRN BG <50 OR BG <70 & pt unresponsive Glucagon 1 mg 01/15/25 23:44 Glucagon Inj 1 Mg Vial IM Q15MIN PRN BG <70, and no IV access Heparin Sodium (Porcine) 3,300 unit 01/15/25 16:07 01/20/25 18:59 Heparin Sod Inj 1000 Unit/Ml Vial 10 Ml INDWELLCAT 01/29/25 16:06 3,300 unit PRN PRN Administration DIALYSIS Albumin Human 25 gm in 100 mls @ 100 mls/min 01/20/25 14:00 01/22/25 09:21 Albuminar-25 Ivpb IV 100 mls/min PRN PRN Administration DIALYSIS Insulin Human Lispro 0 unit 01/16/25 07:30 01/21/25 17:44 Insulin Lispro (Admelog) 1 Unit/0.01 Ml Unit SC 02/15/25 07:29 2 unit AC ADRIANA Administration Protocol Levofloxacin 250 mg 01/21/25 09:00 01/21/25 08:35 Levofloxacin 250 Mg Tablet PO 02/01/25 12:00 250 mg QDAY ADRIANA Administration Metoprolol Succinate 25 mg 01/17/25 09:00 01/21/25 08:34 Metoprolol Succinate Xl 25 Mg Tabcr PO 02/16/25 08:59 25 mg QDAY ADRIANA Administration Ondansetron HCl 4 mg 01/15/25 18:19 Ondansetron Inj 2 Mg/Ml Inj 2 Ml IVP 02/14/25 18:18 Q6H PRN NAUSEA OR VOMITING Protocol Vitamin B Complex/Vit C/Folic Acid 1 tab 01/16/25 09:00 01/21/25 08:35 Vit B12/Vit C/Fa (Nephrovite) Tablet PO 02/15/25 08:59 1 tab QDAY ADRIANA Administration Plan Assessment 59 year old male with history of hypertension, diabetes, hyperlipidemia, ESRD admitted for acute encepahlopathy. #Acute Encephalopathy - not improving, worse than yesterday #CVA - ruled out #Generalized weakness #Myalgias DDX: toxic/metabolic (ESRD on HD, missed HD sessions), infectious (UTI), hypertensive encephalopathy (sBPs reach 190s), structural/seizures, other: constipation, urinary retention In the ED, BUN was 122, Cr was 13.8, and eGFR was 4. Patient missed several HD appts. Teleneuro assessed patient and noted NIHSS score of 18. CT head w/o 01/15/25: Negative for acute hemorrhage, mass effect or midline shift CTA head/neck 01/15/25: No significant neck arterial stenoses. No critical vertebral artery stenoses in the neck. 60% stenosis intracranial left vertebral artery. Attenuated basilar artery which does fill with no large vessel occlusions involving the basilar artery or posterior cerebral branches. Heavy calcification juxtasellar portions internal carotid arteries, 50% stenosis on the right 60% stenosis on the left. No middle cerebral or anterior cerebral artery large vessel occlusions CXR: Moderate vascular congestion WBC elevated, UA + UTI, serum ammonia WNL, TSH WNL Carotid dopper (01/16/25): Right internal carotid artery demonstrates 10-30% stenosis. Left internal carotid artery demonstrates 0-10% stenosis. No right vertebral artery flow is depicted Brain MRI with MRA negative (01/16/25). Negative for acute hemorrhage mass effect or midline shift. No acute infarct Echo 01/17/2025: Left ventricle dimensions normal with evidence of severe left ventricle hypertrophy asymmetric septal hypertrophy with septal thickness of 20 mm with normal left ventricle function ejection fraction of 60%. Grade 1 diastolic dysfunction is present. The RV is normal in size and systolic function. Aortic Valve sclerosis calcification with evidence of mild aortic stenosis gradient of peak velocity 1.7 m/s Mitral annulus calcification with evidence of mild mitral regurgitation. Plan: - Neurology following. Appreciate Recs - Nephro following. Known to Dr. Garcia, follow recs. HD MWF schdule - Continue calcium acetate for management of hyperphosphatemia (Phos 7 on 7/9 AM labs) #Enterobacter cloacae bacteremia - ongoing treatment #Enterobacter cloacae UTI CSF: turbid, bloody, WBC 74698, RBC >320K, monocytes 95, polynucleocyte 5, glucse high 125, protein high >2500. Gram stain negative. Most likely traumatic tap with reactive pleocytosis. Patient anticoagulated. White blood cell today 23.0 Blood culture (+) x2 sources on 01/15/25 - Enterobacter cloacae UA: WBC 217, Leuk (+) on 01/15/25 Urine Cx 01/15/25 - Enterobacter cloacae Blood cultures 01/18/25 - negative Blood cultures 01/19/2025 gram-positive cocci positive but the other tube showed no growth?so likely contaminant Patient not on steroids Plan: - Dr. Crocker consulted and started him on levofloxacin to 250 mg p.o. daily (01/21/2025 - - Neurology following - LP performed on 01/20/2025 follow-up on results #?Right renal mass ? new finding #?Metastatic disease CT abdomen on 01/19/2025 showed 32 mm anterior right renal mass MR cervical, thoracic and lumbar spine without contrast on 01/17/2025 showed abnormal heterogeneous marrow signal Neurology initially said MRI spine findings could be seen in hyperparathyroidsm/Hyperphosphatemia/ESRD and not specific for metastasis. However given recent finding of a right renal mass it is warranted to investigate further. Dr. Hannah said MRI contrast okay to give Plan - MRI abdomen without/w contrast plus MRI lumbar w/ contrast ordered - IR to complete MRI as soon as possible #Paroxysmal A-fib, rate controlled [id number]: 4 HAS-BLED:3 Plan: - Eliquis 5 mg BID - Keep Mag > 2 and K > 4 - Telemetry - Home Metoprolol XL 25 mg qday #Hyperparathyroidism #2/2 to ESRD PTH - 194.9 Ca 9.3, Phos 6.5 Plan Continue Calcium acetate ?phosphate improved from yesterday #Renal cyst - bilateral #Renal mass ruled out CT abdomen pelvis wo con Hepatosplenomegaly. Trace ascites. Tiny bilateral renal calculi. Recommend renal sonography follow-up to exclude 32 mm anterior right renal mass. Urinary bladder wall thickening, differential would include cystitis Renal US - ruled renal mass. Bilateral renal cortical thinning. Mild to moderate bilateral renal parenchymal scar formation. 5 mm left renal calculus Plan: - Monitor worsening clinical status (fever, new abdominal pain) #Hepatosplenomegaly #Cholelithiasis #Mild cirrhosis #?Ascites CT abdomen showed Liver mildly irregular in contour. Hepatomegaly 19 cm. Splenomegaly 14 cm. Cholelithiasis. Gallbladder wall appears mildly thickened. Plan: Monitor worsening clinical status (fever, new abdominal pain) Patient to f/u with PCP for further w/u of cirrhosis Repeat Abd US limited #Insulin Independent Type II Diabetes mellitus type 2 Hgb A1C 6.1 (down from 6.9). Well controlled. Patient is not on diabetic meds at home, mentions diet-controlled. Glucose 146 in AM - patient does have bacteremia Plan: ? Sliding scale insulin ? Hypoglycemic protocol in place ? Blood sugar checks with meals #Hyperlipidemia LDL 83 Plan: - Continue home Atorvastatin 80mg daily #Anuria?common for patient Patient has not been making any urine in the past 24 hours. Patient last made urine on January 17 400 mL Patient mentions that he only pees once a few weeks at home so this might all be normal for him On abdominal exam abdomen appears distended, soft to palpation, no tenderness to palpation ?Monitor #HAGMA ?resolved #Lactic Acidosis ?resolved Lactate 2, AG 16 Likely related to Lactate HCO3- 23.6 #Health Maintenance Disposition: Telemetry DVT prophylaxis: Eliquis 5 mg BID GI prophylaxis: None indicated at this time Diet: Renal CODE STATUS: DNR Case discussed with my attending Dr. Wong and senior resident Dr Raz Romero MD PGY-1 Attending Provider Attestation/Addendum I have examined the patient, reviewed labs and imaging findings, discussed the case with the resident(s), and reviewed entered orders. I agree with the plan of care as outlined in this note. Dr. Judith MD
[2025-01-22] MEDS: VIT B12/Vit C/FA (Nephrovite) TABLET 1 TAB PO (11:39)
[2025-01-22] MEDS: METOPROLOL SUCCINATE XL 25 MG TABCR PO (11:39)
[2025-01-22] MEDS: APIXABAN 2.5 MG TABLET 5 MG PO ×2 (11:41→21:04)
[2025-01-22] MEDS: LEVOFLOXACIN 250 MG TABLET PO (11:46)
[2025-01-22] MEDS: HEPARIN SOD INJ 1000 UNIT/ML VIAL 10 ML 3300 UNIT INDWELLCAT (11:53)
[2025-01-22] MEDS: CALCIUM ACETATE 667 MG TABLET 2001 MG PO ×2 (12:08→17:21)
--- NOTE | 2025-01-22 14:10 | ESPR_ITS ---
Documentation for date of: 01/22/25 Subjective Subjective Interval history: Overnight events: No acute events overnight Patient was seen and examined at bedside. AM vitals and labs reviewed. Patient was sent for dialysis today but labs were prior to dialysis session. BUN 60, creatinine 7.1, GFR 80, and phosphate 7.2. Ins/outs 1200/0. MRI abdomen with contrast planned for tomorrow to assess right renal mass found on CT scan without contrast. Will plan for hemodialysis after tomorrow's MRI with contrast. Hemodialysis this morning lasted for 3 hours and 15 minutes. Net fluid removed was 1.5 L. No complications were noted. Patient appeared to be more awake and alert today. He did not seem to doze off as often as compared to yesterday. However patient is still showing signs of some altered mental status as he is unable to identify the date and his reason for being admitted to the hospital. Patient was also feeling very hot and throwing off his covers. Patient denies feeling feverish or having chills. No other complaints at this time. Review of systems otherwise negative except for what is mentioned above. Exam Vital Signs Temp Pulse Resp BP Pulse Ox O2 Del Method O2 Flow Rate 96.9 F 94 24 H 108/61 100 Nasal Cannula 2 01/22/25 12:00 01/22/25 12:00 01/22/25 12:00 01/22/25 12:00 01/22/25 12:00 01/22/25 12:00 01/22/25 12:00 Narrative Exam Physical Exam: General: Alert, slightly distressed. Skin: Warm, clammy, intact, no obvious rash. Head: Normocephalic, atraumatic. Eye: Normal conjunctiva, PERRL. Cardiovascular: Tachycardic, regular rhythm, no murmur, +S1/S2. Respiratory: Lungs are clear to auscultation, respirations unlabored, no crackles, no wheezing. Gastrointestinal: Soft, nontender, distended. No guarding or rebound tenderness. Extremities: No edema, no cyanosis, no clubbing. 2+ radial pulse bilaterally, 2+ pedal pulse bilaterally. Neuro: No focal deficits observed. Conversant, moving all extremities. No overt cerebellar signs/incoordination. Psychiatric: Cooperative, appropriate affect. Objective Labs 01/25/25 05:44 01/25/25 05:44 Labs: Laboratory Results - last 24 hr 01/21/25 01/21/25 01/21/25 13:52 17:05 20:45 WBC RBC Hgb Hct MCV MCH MCHC RDW Std Deviation Plt Count Neut % (Auto) Lymph % (Auto) [place] % (Auto) Eos % (Auto) Baso % (Auto) Neut # (Auto) Lymph # (Auto) [place] # (Auto) Eos # (Auto) Baso # (Auto) Immature Gran # (Auto) Absolute Nucleated RBC Immature Gran % Nucleated RBC % Sodium Potassium Chloride Carbon Dioxide Anion Gap BUN Creatinine Estim Creat Clear Calc eGFR BUN/Creatinine Ratio Glucose Calculated Osmolality Lactic Acid 2.9 H 2.1 H 2.0 Calcium Corrected Calcium Phosphorus Magnesium Total Bilirubin AST ALT Alkaline Phosphatase Total Protein Albumin Globulin Albumin/Globulin Ratio 01/22/25 05:20 WBC 23.0 H RBC 2.63 L Hgb 7.8 L Hct 24.1 L MCV 92 MCH 29.7 MCHC 32.4 RDW Std Deviation 64.3 H Plt Count 203 D Neut % (Auto) 85 H Lymph % (Auto) 3 L [place] % (Auto) 10 Eos % (Auto) 0 Baso % (Auto) 0 Neut # (Auto) 19.7 H Lymph # (Auto) 0.7 L [place] # (Auto) 2.2 H Eos # (Auto) 0.0 Baso # (Auto) 0.0 Immature Gran # (Auto) 0.36 H Absolute Nucleated RBC 0.00 Immature Gran % 2 H Nucleated RBC % 0 Sodium 134 L Potassium 5.0 Chloride 94 L Carbon Dioxide 23.6 Anion Gap 16 BUN 60 H Creatinine 7.1 H* D Estim Creat Clear Calc 9.9 L eGFR 8 L* BUN/Creatinine Ratio 8 L Glucose 196 H Calculated Osmolality 290 Lactic Acid Calcium 9.6 Corrected Calcium 10.0 Phosphorus 7.2 H Magnesium 2.3 Total Bilirubin 2.2 H D AST 274 H ALT 188 H Alkaline Phosphatase 234 H Total Protein 7.3 Albumin 3.5 Globulin 3.8 H Albumin/Globulin Ratio 0.9 L ABG Interpretation ABG results: 01/15/25 19:57 VBG pH 7.48 VBG pCO2 27 L VBG pO2 54 VBG Base Excess -2 Quality Measures Quality Measures VTE prophylaxis Assessment & Plan Assessment Current Active Medications: Generic Name Dose Route Start Last Admin Trade Name Freq PRN Reason Stop Dose Admin Acetaminophen 650 mg 01/15/25 18:19 01/21/25 12:25 Acetaminophen 325 Mg Tablet PO 02/14/25 18:18 650 mg Q6H PRN Administration Fever >101.5 Acetaminophen 650 mg 01/15/25 18:19 01/22/25 11:57 Acetaminophen 325 Mg Tablet PO 02/14/25 18:18 650 mg Q6H PRN Administration PAIN SCALE 1-3 (mild Apixaban 5 mg 01/19/25 09:00 01/22/25 11:41 Apixaban 2.5 Mg Tablet PO 02/18/25 08:59 5 mg BID ADRIANA Administration Calcium Acetate 2,001 mg 01/16/25 12:00 01/22/25 12:08 Calcium Acetate 667 Mg Tablet PO 02/15/25 11:59 2,001 mg TIDWM ADRIANA Administration Dextrose 25 ml 01/15/25 23:44 Dextrose 50%-Water Inj 50 Ml Syringe IV 02/14/25 23:43 Q15MIN PRN BG 50-70 responsive npo pt Dextrose 50 ml 01/15/25 23:44 Dextrose 50%-Water Inj 50 Ml Syringe IV 02/14/25 23:43 Q15MIN PRN BG <50 OR BG <70 & pt unresponsive Glucagon 1 mg 01/15/25 23:44 Glucagon Inj 1 Mg Vial IM Q15MIN PRN BG <70, and no IV access Heparin Sodium (Porcine) 3,300 unit 01/15/25 16:07 01/22/25 11:53 Heparin Sod Inj 1000 Unit/Ml Vial 10 Ml INDWELLCAT 01/29/25 16:06 3,300 unit PRN PRN Administration DIALYSIS Albumin Human 25 gm in 100 mls @ 100 mls/min 01/20/25 14:00 01/22/25 09:21 Albuminar-25 Ivpb IV 100 mls/min PRN PRN Administration DIALYSIS Insulin Human Lispro 0 unit 01/16/25 07:30 01/22/25 11:55 Insulin Lispro (Admelog) 1 Unit/0.01 Ml Unit SC 02/15/25 07:29 Not Given AC [facility] Protocol Levofloxacin 250 mg 01/21/25 09:00 01/22/25 11:46 Levofloxacin 250 Mg Tablet PO 02/01/25 12:00 250 mg QDAY ADRIANA Administration Metoprolol Succinate 25 mg 01/17/25 09:00 01/22/25 11:39 Metoprolol Succinate Xl 25 Mg Tabcr PO 02/16/25 08:59 25 mg QDAY ADRIANA Administration Ondansetron HCl 4 mg 01/15/25 18:19 Ondansetron Inj 2 Mg/Ml Inj 2 Ml IVP 02/14/25 18:18 Q6H PRN NAUSEA OR VOMITING Protocol Vitamin B Complex/Vit C/Folic Acid 1 tab 01/16/25 09:00 01/22/25 11:39 Vit B12/Vit C/Fa (Nephrovite) Tablet PO 02/15/25 08:59 1 tab QDAY ADRIANA Administration Plan Mr. Springer is a 59?year old male with a relevant medical history of ESRD on HD M// followed by Dr. Garcia, HTN, T2DM, and HLD who presents with altered mental status. Nephrology was consulted for the patient's hemodialysis management. #ESRD on HD M// #Uremia Patient is well known to Dr. Garcia. BUN, Cr, and eGFR were 122, 13.8, and 4 respectively on admission, suggesting the patient was not able to attend one or more of his HD sessions. This was later confirmed by his son who stated that he missed several sessions last week. Increased BUN may explain the altered mental status due to uremic encephalopathy. - Performed HD 01/15, 01/16, 01/18, 01/20, and 01/22. - Planning another HD session tomorrow after MRI with contrast. - Dr. Garcia cleared MRI with contrast as contrast is second-generation macrocyclic gadolinium-based contrast agent (GBCA) - GBCA is considered safer for patients with ESRD, and thus will not require IV hydration before and after if HD session occurs after MRI with contrast. - Continue calcium acetate 2001 mg for management of hyperphosphatemia. - Continue to monitor renal function - Nephrology will continue to follow Patient was discussed with the Nephrology attending, Dr. Garcia. Thank you for allowing us to participate in the care of this patient. Bebeto Pino, PGY-1 Attending Provider Attestation/Addendum Agree with assessment and plan and finding of resident. Pastor Garcia MD
--- NOTE | 2025-01-22 19:33 | XR_ITS ---
Examination: CT brain head without contrast. 2-D sagittal coronal reconstructions Date and time of exam:January 22, 2025, 1952 hours Comparison January 15, 2025 INDICATIONS: Altered mental status today, clinical diagnosis acute encephalopathy CTDI: vol (mGy):48 DLP: (mGycm):930 Technique: Multiple CT axial sections of the brain have been obtained, 5 mm slice thickness. Contrast has not been administered. 2-D sagittal, coronal reconstructions have been obtained Low dose protocols were performed. One or more of the following dose reduction techniques were used; automated exposure control, adjustment of the mA and/or KV according to patient size, use of iterative reconstruction technique. Findings: No significant ventricular enlargement. Subtle low density 13 mm in the right cerebellar hemisphere Intra-axial or extra-axial hemorrhage density is not seen. No mass effect or midline shift Basal cisterns are not remarkable. Fourth ventricle is midline. Cranial vault intact. Impression: Negative for acute hemorrhage, mass effect or midline shift Consider brain MRI follow-up to exclude infarct in the right cerebellar hemisphere
--- NOTE | 2025-01-22 19:49 | PC.NURSE ---
Patient's night nurse Walker and HELENA Ramirez assisted patient from bed to wheelchair. Patient is going for CT scan on 2L o2. Patient was able to sit at edge of the bed with assist and go to the chair with one person assist. Patient shows no sign of distress.
[2025-01-23] VITALS (10 sets, daily range): BP systolic 58–139; BP diastolic 46–73; PULSE 70–94; RESP 13–23; TEMP 35.9–36.3; O2SAT 93–99; BMI 26.7
[2025-01-23] MEDS: ACETAMINOPHEN 325 MG TABLET 650 MG PO ×2 (06:04→16:18)
[2025-01-23 06:36] LABS: Basophils # (Auto) 0.0 Thou/mm3 (0.0-0.2); Basophils % (Auto) 0 % (0-2.5); Eosinophils # (Auto) 0.0 Thou/mm3 (0.0-0.5); Eosinophils % (Auto) 0 % (0-10); Hematocrit 28.3 % (41.0-53.0); Hemoglobin 9.1 g/dL (13.5-16.0); Immature Granulocytes Auto 0.19 Thou/mm3 (0.00-0.00); Lymphocytes # (Auto) 0.6 Thou/mm3 (1.0-4.8); Lymphocytes % (Auto) 3 % (10-50); Mean Corpuscular HGB Conc 32.2 g/dl (31.0-37.0); Mean Corpuscular Hemoglobin 29.3 pg (25.0-35.0); Mean Corpuscular Volume 91 fL (80-100); Monocytes # (Auto) 1.3 Thou/mm3 (0.0-0.8); Monocytes % (Auto) 8 % (0-12); Neutrophils # (Auto) 15.1 Thou/mm3 (1.8-7.7); Neutrophils % (Auto) 88 % (37-80); Nucleated Red Blood Cell # 0.00 Thou/mm3 (0.00-0.00); Nucleated Red Blood Cell % 0 /100 WBC (0); Platelet Count 224 Thou/mm3 (140-440); RDW Standard Deviation 62.8 fL (35.1-43.9); Red Blood Count 3.11 Miln/mm3 (4.50-5.90); White Blood Count 17.3 Thou/mm3 (3.8-10.6)
[2025-01-23 06:49] LABS: Ammonia < 10 uMol/L (11-32)
[2025-01-23 06:59] LABS: Alanine Aminotransferase 250 U/L (10-49); Albumin, Serum 3.8 gm/dL (3.5-5.0); Albumin/Globulin Ratio 0.9 (1.2-2.2); Alkaline Phosphatase 261 U/L (46-116); Anion Gap 15 (7-16); Aspartate Amino Transferase 344 U/L (0-34); BUN/Creatinine Ratio 8 Ratio (12-20); Bilirubin,Total 2.2 mg/dL (0.3-1.2); Blood Urea Nitrogen 41 mg/dL (9-23); Calcium 9.9 mg/dL (8.3-10.6); Calcium (Corrected) 10.1 mg/dL (8.5-10.1); Carbon Dioxide 25.8 mMol/L (20.0-31.0); Chloride 94 mMol/L (98-107); Creatinine (Component) 5.0 mg/dL (0.6-1.3); Estimated Creatinine Clearance 14.0 mL/min (>60); Globulin 4.2 gm/dL (2.3-3.5); Glucose 189 mg/dL (74-106); Magnesium 2.2 mg/dL (1.6-2.6); Osmolality,Calculated 285 (275-295); Phosphorous 6.0 mg/dL (2.4-5.1); Potassium 4.7 mMol/L (3.4-5.1); Sodium 135 mMol/L (136-145); Total Protein 8.0 gm/dL (5.7-8.2); eGFR 13 See Note
[2025-01-23] MEDS: INSULIN LISPRO (AdmeLOG) 1 UNIT/0.01 ML UNIT SC ×3 (07:44→16:27)
[2025-01-23] MEDS: CALCIUM ACETATE 667 MG TABLET 2001 MG PO ×3 (07:44→16:55)
[2025-01-23] MEDS: APIXABAN 2.5 MG TABLET 5 MG PO ×2 (07:56→21:02)
[2025-01-23] MEDS: LEVOFLOXACIN 250 MG TABLET PO (07:56)
[2025-01-23] MEDS: METOPROLOL SUCCINATE XL 25 MG TABCR PO (07:56)
[2025-01-23] MEDS: VIT B12/Vit C/FA (Nephrovite) TABLET 1 TAB PO (07:57)
--- NOTE | 2025-01-23 08:00 | XR_ITS ---
Examination: MRI abdomen, without contrast Date and time of exam: January 23, 2025 1053 hours INDICATIONS: Right renal mass [address] abdomen pelvis January 19, 2025 Technique: Multiple axial sagittal and coronal images of the abdomen have been obtained with the Siemens high-resolution 1.5 Rama MRI scanner. Images obtained include T2-weighted fat-suppressed sagittal sections, TR 3500, TE 46, T2 weighted coronal fat suppressed images, TR 3050, TE 84, T2-weighted transverse fat suppressed images, TR 3260, TE 63, proton density transverse images, TR 4720 TE 46, and T1 weighted coronal images, TR 560, TE 13. Findings: No focal liver lesions Gallstones Suspicious for 2 mm and adjacent 2 mm stones in the distal common bile duct Spleen not enlarged Anterior right renal mass demonstrates increased signal on the T2-weighted images, this mass measures 36 mm consistent with cyst with numerous additional smaller cysts No ascites IMPRESSION: Recommend MRCP follow-up to exclude small stones in the distal common bile duct Cholelithiasis 36 mm cyst anterior margin right kidney, no solid renal mass lesion noted on this noncontrast MRI study
--- NOTE | 2025-01-23 09:53 | ESPR_ITS ---
Documentation for date of: 01/23/25 Subjective Subjective Interval history: Overnight events: No acute events overnight. Patient was seen and examined at bedside. AM vitals and labs reviewed. BUN 41, creatinine 5.0, GFR 13, and phosphate 6.0. WBC 17.3. Planning MRI with contrast today for abdomen and spine followed by hemodialysis. CT head without contrast was done last night for confusion which was negative for any acute findings. Patient appeared more lethargic today compared to yesterday. He still complains of feeling very hot. His covers were thrown to the side with room fan turned on. Temperature has been within normal limits over the past few days. Patient has no complaints at this time. Review of systems otherwise negative except for what is mentioned above. Exam Vital Signs Temp Pulse Resp BP Pulse Ox O2 Del Method O2 Flow Rate 97.2 F 81 13 111/59 L 96 Nasal Cannula 4 01/23/25 08:00 01/23/25 08:00 01/23/25 08:00 01/23/25 08:00 01/23/25 08:00 01/23/25 08:00 01/23/25 08:00 Narrative Exam Physical Exam: General: Sleepy, no acute distress. Skin: Warm, clammy, intact, no obvious rash. Head: Normocephalic, atraumatic. Eye: Normal conjunctiva, PERRL. Cardiovascular: Regular rate and rhythm, no murmur, +S1/S2. Respiratory: Lungs are clear to auscultation, respirations unlabored, no crackles, no wheezing. Gastrointestinal: Soft, nontender, distended. No guarding or rebound tenderness. Extremities: No edema, no cyanosis, no clubbing. 2+ radial pulse bilaterally, 2+ posterior tibial pulse bilaterally. Neuro: No focal deficits observed. Moving all extremities. No overt cerebellar signs/incoordination. Psychiatric: Cooperative, flat affect. Objective Labs 01/25/25 05:44 01/25/25 05:44 Labs: Laboratory Results - last 24 hr 01/23/25 06:10 WBC 17.3 H D RBC 3.11 L Hgb 9.1 L Hct 28.3 L MCV 91 MCH 29.3 MCHC 32.2 RDW Std Deviation 62.8 H Plt Count 224 Neut % (Auto) 88 H Lymph % (Auto) 3 L [place] % (Auto) 8 Eos % (Auto) 0 Baso % (Auto) 0 Neut # (Auto) 15.1 H Lymph # (Auto) 0.6 L [place] # (Auto) 1.3 H Eos # (Auto) 0.0 Baso # (Auto) 0.0 Immature Gran # (Auto) 0.19 H Absolute Nucleated RBC 0.00 Immature Gran % 1 H Nucleated RBC % 0 Sodium 135 L Potassium 4.7 Chloride 94 L Carbon Dioxide 25.8 Anion Gap 15 BUN 41 H Creatinine 5.0 H* D Estim Creat Clear Calc 14.0 L eGFR 13 L* BUN/Creatinine Ratio 8 L Glucose 189 H Calculated Osmolality 285 Calcium 9.9 Corrected Calcium 10.1 Phosphorus 6.0 H Magnesium 2.2 Total Bilirubin 2.2 H AST 344 H ALT 250 H Alkaline Phosphatase 261 H D Ammonia < 10 L Total Protein 8.0 Albumin 3.8 Globulin 4.2 H Albumin/Globulin Ratio 0.9 L ABG Interpretation ABG results: 01/15/25 19:57 VBG pH 7.48 VBG pCO2 27 L VBG pO2 54 VBG Base Excess -2 Quality Measures Quality Measures VTE prophylaxis Assessment & Plan Assessment Current Active Medications: Generic Name Dose Route Start Last Admin Trade Name Freq PRN Reason Stop Dose Admin Acetaminophen 650 mg 01/15/25 18:19 01/21/25 12:25 Acetaminophen 325 Mg Tablet PO 02/14/25 18:18 650 mg Q6H PRN Administration Fever >101.5 Acetaminophen 650 mg 01/15/25 18:19 01/23/25 06:04 Acetaminophen 325 Mg Tablet PO 02/14/25 18:18 650 mg Q6H PRN Administration PAIN SCALE 1-3 (mild Apixaban 5 mg 01/19/25 09:00 01/23/25 07:56 Apixaban 2.5 Mg Tablet PO 02/18/25 08:59 5 mg BID ADRIANA Administration Calcium Acetate 2,001 mg 01/16/25 12:00 01/23/25 07:44 Calcium Acetate 667 Mg Tablet PO 02/15/25 11:59 2,001 mg TIDWM ADRIANA Administration Dextrose 25 ml 01/15/25 23:44 Dextrose 50%-Water Inj 50 Ml Syringe IV 02/14/25 23:43 Q15MIN PRN BG 50-70 responsive npo pt Dextrose 50 ml 01/15/25 23:44 Dextrose 50%-Water Inj 50 Ml Syringe IV 02/14/25 23:43 Q15MIN PRN BG <50 OR BG <70 & pt unresponsive Glucagon 1 mg 01/15/25 23:44 Glucagon Inj 1 Mg Vial IM Q15MIN PRN BG <70, and no IV access Heparin Sodium (Porcine) 3,300 unit 01/15/25 16:07 01/22/25 11:53 Heparin Sod Inj 1000 Unit/Ml Vial 10 Ml INDWELLCAT 01/29/25 16:06 3,300 unit PRN PRN Administration DIALYSIS Albumin Human 25 gm in 100 mls @ 100 mls/min 01/20/25 14:00 01/22/25 09:21 Albuminar-25 Ivpb IV 100 mls/min PRN PRN Administration DIALYSIS Insulin Human Lispro 0 unit 01/16/25 07:30 01/23/25 07:44 Insulin Lispro (Admelog) 1 Unit/0.01 Ml Unit SC 02/15/25 07:29 1 unit AC ADRIANA Administration Protocol Levofloxacin 250 mg 01/21/25 09:00 01/23/25 07:56 Levofloxacin 250 Mg Tablet PO 02/01/25 12:00 250 mg QDAY ADRIANA Administration Metoprolol Succinate 25 mg 01/17/25 09:00 01/23/25 07:56 Metoprolol Succinate Xl 25 Mg Tabcr PO 02/16/25 08:59 25 mg QDAY ADRIANA Administration Ondansetron HCl 4 mg 01/15/25 18:19 Ondansetron Inj 2 Mg/Ml Inj 2 Ml IVP 02/14/25 18:18 Q6H PRN NAUSEA OR VOMITING Protocol Vitamin B Complex/Vit C/Folic Acid 1 tab 01/16/25 09:00 01/23/25 07:57 Vit B12/Vit C/Fa (Nephrovite) Tablet PO 02/15/25 08:59 1 tab QDAY ADRIANA Administration Plan Mr. Springer is a 59?year old male with a relevant medical history of ESRD on HD // followed by Dr. Garcia, HTN, T2DM, and HLD who presents with altered mental status. Nephrology was consulted for the patient's hemodialysis management. #ESRD on HD /W/ #Uremia (resolved) Patient is well known to Dr. Garcia. BUN, Cr, and eGFR were 122, 13.8, and 4 respectively on admission, suggesting the patient was not able to attend one or more of his HD sessions. This was later confirmed by his son who stated that he missed several sessions last week. Increased BUN may explain the altered mental status due to uremic encephalopathy. BUN has returned to baseline around 55 for several days, unlikely to be cause of AMS. - Performed HD 01/15, 01/16, 01/18, 01/20, and 01/22. - HD session planned for today after MRI w/ contrast abdomen & spine. - Dr. Garcia cleared MRI with contrast as contrast is second-generation macrocyclic gadolinium-based contrast agent (GBCA) - Continue calcium acetate 2001 mg for management of hyperphosphatemia. - Continue to monitor renal function - Nephrology will continue to follow Patient was discussed with the Nephrology attending, Dr. Garcia. Thank you for allowing us to participate in the care of this patient. Bebeto Pino, PGY-1 Attending Provider Attestation/Addendum Agree with assessment and plan and finding of resident. Pastor Garcia MD
--- NOTE | 2025-01-23 10:13 | PD.RESPRO ---
Documentation for date of: 01/23/25 Subjective Subjective Interval history: Pt examined at bedside today. No acute overnight events. Pt reports that he does have some abdominal pain. He denies having any CP, NVD. He says that he had a bowel movement yesterday. He has no other complaints at this time. Exam Vital Signs Temp Pulse Resp BP Pulse Ox O2 Del Method O2 Flow Rate 97.2 F 81 13 111/59 L 96 Nasal Cannula 4 01/23/25 08:00 01/23/25 08:00 01/23/25 08:00 01/23/25 08:00 01/23/25 08:00 01/23/25 08:00 01/23/25 08:00 Narrative Exam General: AAOx2, NAD, HEENT: Moist mucous membranes, conjunctiva clear, EOMI, PERRLA, Cardiovascular: S1, S2, radial pulses +2 bilat, RRR Pulmonary: CTAB bilat no cough, no wheezing GI: RUQ tenderness, rebound tenderness, distended Extremities: No presence of trace or pitting edema in lower extremities bilaterally, dorsalis pedis pulses +2 bilaterally Neuro: AAOx2, limited neurologic exam Psych: Good judgement, thought and behavior Objective Labs 01/24/25 05:44 01/24/25 05:44 Labs: Laboratory Results - last 24 hr 01/23/25 06:10 WBC 17.3 H D RBC 3.11 L Hgb 9.1 L Hct 28.3 L MCV 91 MCH 29.3 MCHC 32.2 RDW Std Deviation 62.8 H Plt Count 224 Neut % (Auto) 88 H Lymph % (Auto) 3 L [place] % (Auto) 8 Eos % (Auto) 0 Baso % (Auto) 0 Neut # (Auto) 15.1 H Lymph # (Auto) 0.6 L [place] # (Auto) 1.3 H Eos # (Auto) 0.0 Baso # (Auto) 0.0 Immature Gran # (Auto) 0.19 H Absolute Nucleated RBC 0.00 Immature Gran % 1 H Nucleated RBC % 0 Sodium 135 L Potassium 4.7 Chloride 94 L Carbon Dioxide 25.8 Anion Gap 15 BUN 41 H Creatinine 5.0 H* D Estim Creat Clear Calc 14.0 L eGFR 13 L* BUN/Creatinine Ratio 8 L Glucose 189 H Calculated Osmolality 285 Calcium 9.9 Corrected Calcium 10.1 Phosphorus 6.0 H Magnesium 2.2 Total Bilirubin 2.2 H AST 344 H ALT 250 H Alkaline Phosphatase 261 H D Ammonia < 10 L Total Protein 8.0 Albumin 3.8 Globulin 4.2 H Albumin/Globulin Ratio 0.9 L ABG Interpretation ABG results: 01/15/25 19:57 VBG pH 7.48 VBG pCO2 27 L VBG pO2 54 VBG Base Excess -2 Quality Measures Quality Measures VTE prophylaxis Assessment & Plan Assessment Current Active Medications: Generic Name Dose Route Start Last Admin Trade Name Kasandra PRN Reason Stop Dose Admin Acetaminophen 650 mg 01/15/25 18:19 01/21/25 12:25 Acetaminophen 325 Mg Tablet PO 02/14/25 18:18 650 mg Q6H PRN Administration Fever >101.5 Acetaminophen 650 mg 01/15/25 18:19 01/23/25 06:04 Acetaminophen 325 Mg Tablet PO 02/14/25 18:18 650 mg Q6H PRN Administration PAIN SCALE 1-3 (mild Apixaban 5 mg 01/19/25 09:00 01/23/25 07:56 Apixaban 2.5 Mg Tablet PO 02/18/25 08:59 5 mg BID ADRIANA Administration Calcium Acetate 2,001 mg 01/16/25 12:00 01/23/25 07:44 Calcium Acetate 667 Mg Tablet PO 02/15/25 11:59 2,001 mg TIDWM ADRIANA Administration Dextrose 25 ml 01/15/25 23:44 Dextrose 50%-Water Inj 50 Ml Syringe IV 02/14/25 23:43 Q15MIN PRN BG 50-70 responsive npo pt Dextrose 50 ml 01/15/25 23:44 Dextrose 50%-Water Inj 50 Ml Syringe IV 02/14/25 23:43 Q15MIN PRN BG <50 OR BG <70 & pt unresponsive Glucagon 1 mg 01/15/25 23:44 Glucagon Inj 1 Mg Vial IM Q15MIN PRN BG <70, and no IV access Heparin Sodium (Porcine) 3,300 unit 01/15/25 16:07 01/22/25 11:53 Heparin Sod Inj 1000 Unit/Ml Vial 10 Ml INDWELLCAT 01/29/25 16:06 3,300 unit PRN PRN Administration DIALYSIS Albumin Human 25 gm in 100 mls @ 100 mls/min 01/20/25 14:00 01/22/25 09:21 Albuminar-25 Ivpb IV 100 mls/min PRN PRN Administration DIALYSIS Insulin Human Lispro 0 unit 01/16/25 07:30 01/23/25 07:44 Insulin Lispro (Admelog) 1 Unit/0.01 Ml Unit SC 02/15/25 07:29 1 unit AC ADRIANA Administration Protocol Levofloxacin 250 mg 01/21/25 09:00 01/23/25 07:56 Levofloxacin 250 Mg Tablet PO 02/01/25 12:00 250 mg QDAY ADRIANA Administration Metoprolol Succinate 25 mg 01/17/25 09:00 01/23/25 07:56 Metoprolol Succinate Xl 25 Mg Tabcr PO 02/16/25 08:59 25 mg QDAY ADRIANA Administration Ondansetron HCl 4 mg 01/15/25 18:19 Ondansetron Inj 2 Mg/Ml Inj 2 Ml IVP 02/14/25 18:18 Q6H PRN NAUSEA OR VOMITING Protocol Vitamin B Complex/Vit C/Folic Acid 1 tab 01/16/25 09:00 01/23/25 07:57 Vit B12/Vit C/Fa (Nephrovite) Tablet PO 02/15/25 08:59 1 tab QDAY ADRIANA Administration Plan Assessment 59 year old male with history of hypertension, diabetes, hyperlipidemia, ESRD admitted for acute encepahlopathy. #Abdominal pain #Hepatosplenomegaly #Cholelithiasis #Mild cirrhosis #Elevated Bilirubin, stable #Elevated ALP, worsening #Elevated Transaminases, worsening #?Ascites CT abdomen showed Liver mildly irregular in contour. Hepatomegaly 19 cm. Splenomegaly 14 cm. Cholelithiasis. Gallbladder wall appears mildly thickened. T bili 2.2, worsening AST and ALT ( 344 and 250 respectively), 261 ALP Concern for stones in CBD MRI abdomen recommends MRCP as there was some possible 2 mm and adjacent 2 mm stones in the distal common bile duct Plan: MRCP, will consider GI consult Trend CMP Pain control #Acute Encephalopathy - not improving, worse than yesterday #CVA - ruled out #Generalized weakness #Myalgias DDX: toxic/metabolic (ESRD on HD, missed HD sessions), infectious (UTI), hypertensive encephalopathy (sBPs reach 190s), structural/seizures, other: constipation, urinary retention In the ED, BUN was 122, Cr was 13.8, and eGFR was 4. Patient missed several HD appts. Teleneuro assessed patient and noted NIHSS score of 18. CT head w/o 01/15/25: Negative for acute hemorrhage, mass effect or midline shift CTA head/neck 01/15/25: No significant neck arterial stenoses. No critical vertebral artery stenoses in the neck. 60% stenosis intracranial left vertebral artery. Attenuated basilar artery which does fill with no large vessel occlusions involving the basilar artery or posterior cerebral branches. Heavy calcification juxtasellar portions internal carotid arteries, 50% stenosis on the right 60% stenosis on the left. No middle cerebral or anterior cerebral artery large vessel occlusions CXR: Moderate vascular congestion WBC elevated, UA + UTI, serum ammonia WNL, TSH WNL Carotid dopper (01/16/25): Right internal carotid artery demonstrates 10-30% stenosis. Left internal carotid artery demonstrates 0-10% stenosis. No right vertebral artery flow is depicted Brain MRI with MRA negative (01/16/25). Negative for acute hemorrhage mass effect or midline shift. No acute infarct Echo 01/17/2025: Left ventricle dimensions normal with evidence of severe left ventricle hypertrophy asymmetric septal hypertrophy with septal thickness of 20 mm with normal left ventricle function ejection fraction of 60%. Grade 1 diastolic dysfunction is present. The RV is normal in size and systolic function. Aortic Valve sclerosis calcification with evidence of mild aortic stenosis gradient of peak velocity 1.7 m/s Mitral annulus calcification with evidence of mild mitral regurgitation. Plan: - Neurology following. Appreciate Recs - Nephro following. Known to Dr. Garcia, follow recs. HD [facility] schdule - Continue calcium acetate for management of hyperphosphatemia (Phos 7 on 7/9 AM labs) #Enterobacter cloacae bacteremia - ongoing treatment #Enterobacter cloacae UTI CSF: turbid, bloody, WBC 30038, RBC >320K, monocytes 95, polynucleocyte 5, glucse high 125, protein high >2500. Gram stain negative. Most likely traumatic tap with reactive pleocytosis. Patient anticoagulated. White blood cell today 23.0 Blood culture (+) x2 sources on 01/15/25 - Enterobacter cloacae UA: WBC 217, Leuk (+) on 01/15/25 Urine Cx 01/15/25 - Enterobacter cloacae Blood cultures 01/18/25 - negative Blood cultures 01/19/2025 gram-positive cocci positive but the other tube showed no growth?so likely contaminant Patient not on steroids Plan: - Dr. Crocker consulted and started him on levofloxacin to 250 mg p.o. daily (01/21/2025 - - Neurology following - LP performed on 01/20/2025 follow-up on results - Zosyn IV renally dosed #?Right renal mass ? new finding #?Metastatic disease CT abdomen on 01/19/2025 showed 32 mm anterior right renal mass MR cervical, thoracic and lumbar spine without contrast on 01/17/2025 showed abnormal heterogeneous marrow signal Neurology initially said MRI spine findings could be seen in hyperparathyroidsm/Hyperphosphatemia/ESRD and not specific for metastasis. However given recent finding of a right renal mass it is warranted to investigate further. Dr. Hannah said MRI contrast okay to give 35 mm Renal cyst on noncontrast MRI #Paroxysmal A-fib, rate controlled [id number]: 4 HAS-BLED:3 Plan: - Eliquis 5 mg BID - Keep Mag > 2 and K > 4 - Telemetry - Home Metoprolol XL 25 mg qday #Hyperparathyroidism #2/2 to ESRD PTH - 194.9 Ca 9.3, Phos 6.5 Plan Continue Calcium acetate ?phosphate improved from yesterday #Renal cyst - bilateral #Renal mass ruled out CT abdomen pelvis wo con Hepatosplenomegaly. Trace ascites. Tiny bilateral renal calculi. Recommend renal sonography follow-up to exclude 32 mm anterior right renal mass. Urinary bladder wall thickening, differential would include cystitis Renal US - ruled renal mass. Bilateral renal cortical thinning. Mild to moderate bilateral renal parenchymal scar formation. 5 mm left renal calculus Abdominal MRI shows 35 mm cyst #Insulin Independent Type II Diabetes mellitus type 2 Hgb A1C 6.1 (down from 6.9). Well controlled. Patient is not on diabetic meds at home, mentions diet-controlled. Glucose 146 in AM - patient does have bacteremia Plan: ? Sliding scale insulin ? Hypoglycemic protocol in place ? Blood sugar checks with meals #Hyperlipidemia LDL 83 Plan: - Continue home Atorvastatin 80mg daily #Anuria?common for patient Patient has not been making any urine in the past 24 hours. Patient last made urine on January 17 400 mL Patient mentions that he only pees once a few weeks at home so this might all be normal for him On abdominal exam abdomen appears distended, soft to palpation, no tenderness to palpation ?Monitor #HAGMA ?resolved #Lactic Acidosis ?resolved Lactate 2, AG 16 Likely related to Lactate HCO3- 23.6 #Health Maintenance Disposition: Telemetry DVT prophylaxis: Eliquis 5 mg BID GI prophylaxis: None indicated at this time Diet: Renal CODE STATUS: DNR Case discussed with my attending Dr. Judith Crandall, PGY-2 Attending Provider Attestation/Addendum I have examined the patient, reviewed labs and imaging findings, discussed the case with the resident(s), and reviewed entered orders. I agree with the plan of care as outlined in this note, with these additional summaries/recommendations: Patient seen at bedside. No acute overnight events. Patient continues to be encephalopathic although appears stable. I spoke with patient's son who reported his change in mental status started during previous hospitalization at [facility] and patient was seen by PCP who referred him to a mental health provider. Patient has undergone extensive workup for encephalopathy including multiple imaging studies, LP, and metabolic workup. In-house neurology following. Lumbar puncture most likely traumatic and no need for repeat. Suspect encephalopathy may be related to infection although has not resolved with antibiotics. Patient has had increasing transaminitis with hyperbilirubinemia and elevated alkaline phosphatase. Today at bedside his abdomen appears slightly distended and has some right upper quadrant tenderness. We will obtain MRCP and discuss with radiology as patient will also require MRI of abdomen to evaluate renal mass. Patient does have some form of underlying liver disease although increase in LFTs is new. Avoid hepatotoxic agents and hepatically dose medications. Leukocytosis persists and antibiotics were broadened to IV Zosyn today. Patient's atrial fibrillation remains well-controlled. Nephrology following for end-stage renal disease. Continue insulin sliding scale for diabetes mellitus type 2. Please see residents note for additional details and management. Dr. Judith MD
[2025-01-23] MEDS: HYDROmorphone INJ 2 MG/ML VIAL 0.25 MG IVP (11:24)
[2025-01-23] MEDS: PIPER/TAZO INJ 4.5 GM in SODIUM CHLORIDE 0.9% (POP) 100 ML IV ×2 (11:56→21:02)
--- NOTE | 2025-01-23 12:40 | PD.RESPRO ---
Documentation for date of: 01/23/25 Subjective Subjective Interval history: Patient was easily aroused from sleeping this afternoon. He denies pain but does report that he is unable to sleep at night. Exam Vital Signs Temp Pulse Resp BP Pulse Ox O2 Del Method O2 Flow Rate 97.2 F 83 13 111/59 L 93 L Nasal Cannula 4 01/23/25 08:00 01/23/25 10:39 01/23/25 10:39 01/23/25 08:00 01/23/25 10:39 01/23/25 08:00 01/23/25 10:39 Narrative Exam General: No acute distress, well nourished Eye: PERRL, EOMI, normal conjunctiva, no scleral icterus HENT: Normocephalic, atraumatic, clear tympanic membranes, normal hearing, moist oral mucosa, no sinus tenderness Neck: Supple, non-tender, no carotid bruits, no JVD, no lymphadenopathy Lungs: Clear to auscultation bilaterally, non-labored respirations, symmetric chest rise Heart: Normal S1 and S2, no S3 or S4 appreciated. Normal rate and regular rhythm, no murmurs, rubs gallops, or edema. Peripheral pulses intact bilaterally, capillary refill brisk distally Abdomen: Soft, non-tender, non-distended, normal bowel sounds, no masses Musculoskeletal: Normal range of motion and strength, no tenderness or swelling Skin: Skin is warm, dry, no rashes or lesions. Neurologic: Alert, awake and oriented x3. Cranial nerves: II through XII grossly intact. Speech and language: Normal with no dysarthria or dysphasia. Patient was able to stand up from bed with support. Psychiatric: Cooperative, appropriate mood and affect Objective Labs 01/24/25 05:44 01/24/25 05:44 Labs: Laboratory Results - last 24 hr 01/23/25 06:10 WBC 17.3 H D RBC 3.11 L Hgb 9.1 L Hct 28.3 L MCV 91 MCH 29.3 MCHC 32.2 RDW Std Deviation 62.8 H Plt Count 224 Neut % (Auto) 88 H Lymph % (Auto) 3 L [place] % (Auto) 8 Eos % (Auto) 0 Baso % (Auto) 0 Neut # (Auto) 15.1 H Lymph # (Auto) 0.6 L [place] # (Auto) 1.3 H Eos # (Auto) 0.0 Baso # (Auto) 0.0 Immature Gran # (Auto) 0.19 H Absolute Nucleated RBC 0.00 Immature Gran % 1 H Nucleated RBC % 0 Sodium 135 L Potassium 4.7 Chloride 94 L Carbon Dioxide 25.8 Anion Gap 15 BUN 41 H Creatinine 5.0 H* D Estim Creat Clear Calc 14.0 L eGFR 13 L* BUN/Creatinine Ratio 8 L Glucose 189 H Calculated Osmolality 285 Calcium 9.9 Corrected Calcium 10.1 Phosphorus 6.0 H Magnesium 2.2 Total Bilirubin 2.2 H AST 344 H ALT 250 H Alkaline Phosphatase 261 H D Ammonia < 10 L Total Protein 8.0 Albumin 3.8 Globulin 4.2 H Albumin/Globulin Ratio 0.9 L ABG Interpretation ABG results: 01/15/25 19:57 VBG pH 7.48 VBG pCO2 27 L VBG pO2 54 VBG Base Excess -2 Quality Measures Quality Measures VTE prophylaxis Assessment & Plan Assessment Current Active Medications: Generic Name Dose Route Start Last Admin Trade Name Freq PRN Reason Stop Dose Admin Acetaminophen 650 mg 01/15/25 18:19 01/21/25 12:25 Acetaminophen 325 Mg Tablet PO 02/14/25 18:18 650 mg Q6H PRN Administration Fever >101.5 Acetaminophen 650 mg 01/15/25 18:19 01/23/25 06:04 Acetaminophen 325 Mg Tablet PO 02/14/25 18:18 650 mg Q6H PRN Administration PAIN SCALE 1-3 (mild Apixaban 5 mg 01/19/25 09:00 01/23/25 07:56 Apixaban 2.5 Mg Tablet PO 02/18/25 08:59 5 mg BID ADRIANA Administration Calcium Acetate 2,001 mg 01/16/25 12:00 01/23/25 11:53 Calcium Acetate 667 Mg Tablet PO 02/15/25 11:59 2,001 mg TIDWM ADRIANA Administration Dextrose 25 ml 01/15/25 23:44 Dextrose 50%-Water Inj 50 Ml Syringe IV 02/14/25 23:43 Q15MIN PRN BG 50-70 responsive npo pt Dextrose 50 ml 01/15/25 23:44 Dextrose 50%-Water Inj 50 Ml Syringe IV 02/14/25 23:43 Q15MIN PRN BG <50 OR BG <70 & pt unresponsive Glucagon 1 mg 01/15/25 23:44 Glucagon Inj 1 Mg Vial IM Q15MIN PRN BG <70, and no IV access Heparin Sodium (Porcine) 3,300 unit 01/15/25 16:07 01/22/25 11:53 Heparin Sod Inj 1000 Unit/Ml Vial 10 Ml INDWELLCAT 01/29/25 16:06 3,300 unit PRN PRN Administration DIALYSIS Albumin Human 25 gm in 100 mls @ 100 mls/min 01/20/25 14:00 01/22/25 09:21 Albuminar-25 Ivpb IV 100 mls/min PRN PRN Administration DIALYSIS Piperacillin Sod/Tazobactam 100 mls @ 25 mls/hr 01/23/25 11:15 01/23/25 11:56 Sod 4.5 gm/ Sodium Chloride IV 01/30/25 11:14 25 mls/hr Q12HR ADRIANA Administration Insulin Human Lispro 0 unit 01/16/25 07:30 01/23/25 12:06 Insulin Lispro (Admelog) 1 Unit/0.01 Ml Unit SC 02/15/25 07:29 1 unit AC ADRIANA Administration Protocol Metoprolol Succinate 25 mg 01/17/25 09:00 01/23/25 07:56 Metoprolol Succinate Xl 25 Mg Tabcr PO 02/16/25 08:59 25 mg QDAY ADRIANA Administration Ondansetron HCl 4 mg 01/15/25 18:19 Ondansetron Inj 2 Mg/Ml Inj 2 Ml IVP 02/14/25 18:18 Q6H PRN NAUSEA OR VOMITING Protocol Vitamin B Complex/Vit C/Folic Acid 1 tab 01/16/25 09:00 01/23/25 07:57 Vit B12/Vit C/Fa (Nephrovite) Tablet PO 02/15/25 08:59 1 tab QDAY ADRIANA Administration Plan #Acute Encephalopathy Patient on HD, missed several HD appointments last week 2/2 fall with head strike. Initial presentation: AMS with agitation, unable to perform physical exam 2/2 pain upon light touch to extremities Mental status initially improved then worsened No hx of IVDU, supplements per son CT head w/o, CTA head/neck, MRI negative for acute hemorrhage, mass effect, midline shift, LVO, acute infarct. CTA head/neck showed 60% stenosis intracranial left vertebral artery.50% stenosis, on the right 60% stenosis on the left Carotid doppler: Right internal carotid artery demonstrates 10-30% stenosis.Left internal carotid artery demonstrates 0-10% stenosis.No right vertebral artery flow is depicted Rhabdomyolysis r/o given CK WNL B12 high 1497, folate WNL, TSH and T4 WNL CSF: turbid, bloody, WBC 19150, RBC >320K, monocytes 95, polynucleocyte 5, glucse high 125, protein high >2500. Gram stain negative. Most likely traumatic tap with reactive pleocytosis. Patient anticoagulated. CSF culture NGTD Cocci IgM/IgG, HIV, Hep A/B/C negative Blood cultures 01/15 and 01/16: GNR, Enterobacter --> Staph epidermidis x1, NGTD on other preliminary reports Cocci IgM/IgG negative DDX: toxic/metabolic (ESRD on HD, missed HD sessions / uremia, hyperphosphatemia), infectious (HSV, viral encephalitis, bacteremia, infective endocarditis, TB, fungal infection), inflammatory, neoplastic. Possibly compounded by delirium as patient's exam fluctuates throughout day. Plan - Pending CSF viral panel (VDRL, HSV, WNV) - Pending HSV PCR - Pending blood cultures - Given patient's fluctuations on exam throughout day with vast improvement upon evening exam, no need to repeat LP with IR or MRI brain with contrast. - Will encourage him to participate with the physical therapy when appropriate - Delirium precautions #Paroxysmal A-fib, rate controlled Plan: - Management per primary team - Eliquis 5 mg BID #Hyperlipidemia Triglycerides high 310 HDL low 5 Plan: - Continue high intensity statin #Hyperparathyroidism #Hyperphosphatemia - improving PTH 194.9 Phos 9 --> 6 Plan: - Management per primary team - Phoslo #ESRD on HD M/W/F Plan: - Management per primary team #Diabetes mellitus type 2 Hgb A1C 6.1 (down from 6.9) Plan: - Management per primary team - SSI #Transaminitis Abdominal US: negative for ascites CT abdomen/pelvis: Cirrhosis versus primary hepatocellular disease. Cholelithiasis. 32 mm anterior right renal mass. No abdominal or pelvic abscess Abdominal MRI w/o: Recommend MRCP follow-up to exclude small stones in the distal common bile duct. Cholelithiasis. 36 mm cyst anterior margin right kidney, no solid renal mass lesion noted LFT uptrending. Ammonia <10 Total bilirubin elevated and uptrending Plan: - Management per primary team #Renal mass Incidental finding on MRI w/o Plan: - Management per primary team - Pending MRI w/ contrast abdomen #Neck pain #Sciatica MRI C spine: C4-C5 4 mm central osteophyte disc complex. C5-C6 5 mm central subarticular also by disc complex with advanced bilateral neural foraminal stenosis. C6-C7 advanced left neural foraminal stenosis. Abnormal heterogeneous signal throughout all visualized cervical vertebral bodies MRI T spine: No thoracic fracture. Mild diffuse thoracic disc narrowing Heterogeneous marrow signal involving thoracic vertebral bodies MRI L spine: Abnormal marrow signal. L5-S1 4 mm central lumbar disc bulge extending to the foraminal regions with mild bilateral L5 ganglionic compression +straight leg raise test b/l Plan: - MRI L spine w/ contrast if ok with nephrology - Will consider doing EMG nerve conduction study of both lower extremities as an outpatient to evaluate for lumbosacral radiculopathy/neuropathy Plan discussed with Dr. Abdiaziz Cruz, PGY1 Attending Provider Attestation/Addendum I personally have seen and examined the patient at the bedside and agreed with resident's findings, assessment and plan of care. Will continue with current management and no need for any further workup including MRI brain or EEG. Patient's mental status is back to baseline. Able to transfer with minimal support from the bed to the chair with minimal support and walked few steps.
--- NOTE | 2025-01-23 16:15 | PC.SS ---
Rounding: AMS, pending imaging
--- NOTE | 2025-01-23 16:48 | PC.NURSE ---
MD ordered ERCP, pt is currently refusing to take imaging. Md notified, will follow up tomorrow.
--- NOTE | 2025-01-23 16:52 | PC.NURSE ---
Spoke with Dr. Estrada, informed md that patient is currently refusing the MRCP imaging. Will follow up tomorrow, family at bedside, education given to patient and family. Family would like to speak with patient about procedure.
--- NOTE | 2025-01-23 19:53 | XR_ITS ---
Examination: Abdomen AP single view Technique: AP portable supine abdomen, single view Date and time: January 23, 2025, 2040 hours INDICATIONS: Abdominal distention today FINDINGS: Moderate stool throughout the colon Mild small bowel ileus. No free air Prominent osteopenia with moderate bilateral hip osteoarthritis IMPRESSION: Moderate stool throughout the colon Mild small bowel ileus
--- NOTE | 2025-01-23 20:20 | PD.RESEVENT ---
Documentation for date of: 01/23/25 Event Note Event Note: Rapid response called sometime around 7:30 PM for patient in room 272 experiencing a transient drop in blood pressure with a MAP in the low 50s. The incident seem to be positional at low when the patient was laying on his right side however readily resolved when the patient was placed on his back and sat up. Patient assessed and examined in hospital bed reporting no concerning symptoms and airway/breathing/circulation intact. Patient is currently being treated with IV Zosyn for intra-abdominal infection and blood cultures are positive from 1 set for Staph epidermidis; will order repeat blood cultures. On examination, patient has distended abdomen without any tenderness on palpation. Will order KUB and reassess. Will monitor patient for any acute changes. Suleman Márquez, DO PGY-2 Internal Medicine - [facility]
[2025-01-23] MEDS: POLYETHYLENE GLYCOL 17 GM PACKET PO (21:25)
[2025-01-24] VITALS (28 sets, daily range): BP systolic 83–147; BP diastolic 49–95; PULSE 72–93; RESP 16–22; TEMP 35.8–36.6; O2SAT 93–100; BMI 26.7
[2025-01-24] MEDS: ACETAMINOPHEN 325 MG TABLET 650 MG PO ×2 (01:44→07:48)
[2025-01-24 06:29] LABS: Basophils # (Auto) 0.0 Thou/mm3 (0.0-0.2); Basophils % (Auto) 0 % (0-2.5); Eosinophils # (Auto) 0.1 Thou/mm3 (0.0-0.5); Eosinophils % (Auto) 0 % (0-10); Hematocrit 23.9 % (41.0-53.0); Immature Granulocytes Auto 0.26 Thou/mm3 (0.00-0.00); Lymphocytes # (Auto) 0.8 Thou/mm3 (1.0-4.8); Lymphocytes % (Auto) 5 % (10-50); Mean Corpuscular HGB Conc 32.6 g/dl (31.0-37.0); Mean Corpuscular Hemoglobin 29.5 pg (25.0-35.0); Mean Corpuscular Volume 91 fL (80-100); Monocytes # (Auto) 1.5 Thou/mm3 (0.0-0.8); Monocytes % (Auto) 9 % (0-12); Neutrophils # (Auto) 13.9 Thou/mm3 (1.8-7.7); Neutrophils % (Auto) 84 % (37-80); Nucleated Red Blood Cell # 0.00 Thou/mm3 (0.00-0.00); Nucleated Red Blood Cell % 0 /100 WBC (0); Platelet Count 199 Thou/mm3 (140-440); RDW Standard Deviation 62.5 fL (35.1-43.9); Red Blood Count 2.64 Miln/mm3 (4.50-5.90); White Blood Count 16.6 Thou/mm3 (3.8-10.6)
[2025-01-24 06:44] LABS: Hemoglobin 7.8 g/dL (13.5-16.0)
[2025-01-24 06:58] LABS: Alanine Aminotransferase 202 U/L (10-49); Albumin, Serum 3.4 gm/dL (3.5-5.0); Albumin/Globulin Ratio 0.9 (1.2-2.2); Alkaline Phosphatase 249 U/L (46-116); Anion Gap 19 (7-16); Aspartate Amino Transferase 186 U/L (0-34); BUN/Creatinine Ratio 9 Ratio (12-20); Bilirubin,Total 2.0 mg/dL (0.3-1.2); Blood Urea Nitrogen 59 mg/dL (9-23); Calcium 9.9 mg/dL (8.3-10.6); Calcium (Corrected) 10.4 mg/dL (8.5-10.1); Carbon Dioxide 23.2 mMol/L (20.0-31.0); Chloride 92 mMol/L (98-107); Creatinine (Component) 6.4 mg/dL (0.6-1.3); Estimated Creatinine Clearance 11.0 mL/min (>60); Globulin 3.9 gm/dL (2.3-3.5); Glucose 186 mg/dL (74-106); Magnesium 2.0 mg/dL (1.6-2.6); Osmolality,Calculated 289 (275-295); Phosphorous 7.0 mg/dL (2.4-5.1); Potassium 4.8 mMol/L (3.4-5.1); Sodium 134 mMol/L (136-145); Total Protein 7.3 gm/dL (5.7-8.2); eGFR 9 See Note
[2025-01-24] MEDS: ALBUMIN HUMAN 25% IVPB 25 GM/100 ML BTL IV (08:27)
--- NOTE | 2025-01-24 08:29 | PC.NURSE ---
Addendum entered by Mohinder Fabian RN 01/24/25 08:44: UF GOAL STARTED AT 1.5L TOLERATED. Original Note: BP LOW,P[T DENIES ALL S/S OF HYPOTENSION WILL ADMIN PRN ALBUMIN PER MD ORDERS AND CONT. TO MONITOR
--- NOTE | 2025-01-24 08:49 | PC.NURSE ---
BP TRENDING DOWN AGAIN, PT DENIES ALL S/S OF HYPOTENSION UF GOAL LOWERED TO 1L TOLERATED, WILL CONT. TO MONITOR
--- NOTE | 2025-01-24 09:03 | PC.NURSE ---
BP TRENDING DOWN, PT REMAINS ASYMPTOMATIC AND DENIES ALL S/S OF HYPOTENSION, UF GOAL LOWERED TO 0.5L TOLERATED, WILL CONT. TO MONITOR
--- NOTE | 2025-01-24 09:31 | PC.NURSE ---
PT DENIES ALL COMPLAINTS, UF GOAL LOWERED TO 0.3L TOLERATED.
--- NOTE | 2025-01-24 10:02 | PC.NURSE ---
UF GOAL INCREASED TO 0.5L TOLERATED. WILL CONT. TO MONITOR
--- NOTE | 2025-01-24 10:16 | PC.NURSE ---
BP TRENDING DOWN AGAIN, PT DENIES ALL S/S OF HYPOTENSION UF GOAL LOWERED TO 0.3L TOLERATED WILL CONT. TO MONITOR
[2025-01-24] MEDS: HEPARIN SOD INJ 1000 UNIT/ML VIAL 10 ML 3300 UNIT INDWELLCAT (11:44)
[2025-01-24] MEDS: PIPER/TAZO INJ 4.5 GM in SODIUM CHLORIDE 0.9% (POP) 100 ML IV ×2 (11:53→20:41)
[2025-01-24] MEDS: LACTULOSE SYRUP 20 GM/30 ML UDC PO (11:59)
[2025-01-24] MEDS: APIXABAN 2.5 MG TABLET 5 MG PO ×2 (11:59→20:41)
[2025-01-24] MEDS: VIT B12/Vit C/FA (Nephrovite) TABLET 1 TAB PO (11:59)
[2025-01-24] MEDS: METOPROLOL SUCCINATE XL 25 MG TABCR PO (11:59)
[2025-01-24] MEDS: CALCIUM ACETATE 667 MG TABLET 2001 MG PO ×2 (12:02→16:58)
[2025-01-24] MEDS: HYDROcodone/APAP 5/325 TABLET 1 TAB PO (12:22)
--- NOTE | 2025-01-24 14:20 | ESPR_ITS ---
Documentation for date of: 01/24/25 Subjective Subjective Interval history: Overnight events: Rapid response called around 7:30 PM for patient due to transient drop in blood pressure with MAP in the low 50s. Blood pressure readily resolved after patient was repositioned. Ordered repeat blood cultures and KUB. Patient was seen and examined at bedside. AM vitals and labs reviewed. BUN 59, creatinine 6.4, GFR 9, phosphate 7.0. Ins/outs 1100/100. Hemodialysis performed after a.m. labs. Hemodialysis lasted for 2 hours and 59 minutes with 0.3 L of fluid removed. MRI without contrast of abdomen was obtained yesterday and showed presence of gallstones and a 36 cm cyst with many surrounding cysts on right kidney. MRCP was ordered for further evaluation of gallstones, but patient refused yesterday. MRCP was attempted today after hemodialysis, but patient refused again. Patient had received Power for pain prior to transport to MRI for a MRCP. On transport to MRI, the patient was noted to be very lethargic, so Dilaudid was not given. Discussed with nursing staff about patient pain, and nursing staff noted that the patient endorsed 10 out of 10 pain multiple times throughout hospital stay. However, the patient would very infrequently endorse this pain to physicians. This pain and was also noted by the night nurse. Also discussed the patient's altered mental status with nursing staff, and nursing staff noted that the patient seemed to have waxing and waning of mental status. It was noted that the patient does seem to be a bit more lethargic in the mornings, but no clear pattern was established. Patient was seen after returning from failed MRCP attempt. He seemed more lethargic than usual. Patient was able to correctly identify where he was and the day of the week, but was unable to identify the month and why he is currently in the hospital. Conversation with the patient was very difficult today as he fell asleep very frequently during questioning. When asked if he was in any pain, the patient denied. No other complaints stated at this time. Review of systems otherwise negative except for what is mentioned above. Exam Vital Signs Temp Pulse Resp BP Pulse Ox O2 Del Method O2 Flow Rate 97.6 F 93 16 147/95 H 100 Nasal Cannula 3 01/24/25 12:00 01/24/25 12:00 01/24/25 12:01/24/25 12:00 01/24/25 12:00 01/24/25 12:00 01/24/25 12:00 Narrative Exam Physical Exam: General: Sleepy, no acute distress. Skin: Warm, dry, intact, no obvious rash. Head: Normocephalic, atraumatic. Respiratory: Respirations unlabored on 3L NC Gastrointestinal: Soft, nontender, distended. No guarding or rebound tenderness. Extremities: No edema, no cyanosis, no clubbing. 2+ radial pulse bilaterally, 2+ pedal pulse bilaterally. Objective Labs 01/25/25 05:44 01/25/25 05:44 Labs: Laboratory Results - last 24 hr 01/24/25 05:44 WBC 16.6 H RBC 2.64 L Hgb 7.8 L Hct 23.9 L MCV 91 MCH 29.5 MCHC 32.6 RDW Std Deviation 62.5 H Plt Count 199 Neut % (Auto) 84 H Lymph % (Auto) 5 L [place] % (Auto) 9 Eos % (Auto) 0 Baso % (Auto) 0 Neut # (Auto) 13.9 H Lymph # (Auto) 0.8 L [place] # (Auto) 1.5 H Eos # (Auto) 0.1 Baso # (Auto) 0.0 Immature Gran # (Auto) 0.26 H Absolute Nucleated RBC 0.00 Immature Gran % 2 H Nucleated RBC % 0 Sodium 134 L Potassium 4.8 Chloride 92 L Carbon Dioxide 23.2 Anion Gap 19 H BUN 59 H Creatinine 6.4 H* D Estim Creat Clear Calc 11.0 L eGFR 9 L* BUN/Creatinine Ratio 9 L Glucose 186 H Calculated Osmolality 289 Calcium 9.9 Corrected Calcium 10.4 H Phosphorus 7.0 H Magnesium 2.0 Total Bilirubin 2.0 H AST 186 H ALT 202 H Alkaline Phosphatase 249 H Total Protein 7.3 Albumin 3.4 L Globulin 3.9 H Albumin/Globulin Ratio 0.9 L ABG Interpretation ABG results: 01/15/25 19:57 VBG pH 7.48 VBG pCO2 27 L VBG pO2 54 VBG Base Excess -2 Quality Measures Quality Measures VTE prophylaxis Assessment & Plan Assessment Current Active Medications: Generic Name Dose Route Start Last Admin Trade Name Freq PRN Reason Stop Dose Admin Acetaminophen 650 mg 01/15/25 18:19 01/24/25 01:44 Acetaminophen 325 Mg Tablet PO 02/14/25 18:18 650 mg Q6H PRN Administration Fever >101.5 Acetaminophen 650 mg 01/15/25 18:19 01/24/25 07:48 Acetaminophen 325 Mg Tablet PO 02/14/25 18:18 650 mg Q6H PRN Administration PAIN SCALE 1-3 (mild Hydrocodone Bitart/Acetaminophen 1 tab 01/24/25 12:05 01/24/25 12:22 Hydrocodone/Apap 5/325 Tablet PO 01/29/25 12:04 1 tab Q6HR PRN Administration pain 4-7 Apixaban 5 mg 01/19/25 09:00 01/24/25 11:59 Apixaban 2.5 Mg Tablet PO 02/18/25 08:59 5 mg BID ADRIANA Administration Calcium Acetate 2,001 mg 01/16/25 12:00 01/24/25 12:02 Calcium Acetate 667 Mg Tablet PO 02/15/25 11:59 2,001 mg TIDWM ADRIANA Administration Dextrose 25 ml 01/15/25 23:44 Dextrose 50%-Water Inj 50 Ml Syringe IV 02/14/25 23:43 Q15MIN PRN BG 50-70 responsive npo pt Dextrose 50 ml 01/15/25 23:44 Dextrose 50%-Water Inj 50 Ml Syringe IV 02/14/25 23:43 Q15MIN PRN BG <50 OR BG <70 & pt unresponsive Glucagon 1 mg 01/15/25 23:44 Glucagon Inj 1 Mg Vial IM Q15MIN PRN BG <70, and no IV access Heparin Sodium (Porcine) 3,300 unit 01/15/25 16:07 01/24/25 11:44 Heparin Sod Inj 1000 Unit/Ml Vial 10 Ml INDWELLCAT 01/29/25 16:06 3,300 unit PRN PRN Administration DIALYSIS Hydromorphone HCl 0.25 mg 01/23/25 15:24 Hydromorphone Inj 2 Mg/Ml Vial IVP 01/28/25 15:23 X1 PRN MRI Piperacillin Sod/Tazobactam 100 mls @ 25 mls/hr 01/23/25 11:15 01/24/25 11:53 Sod 4.5 gm/ Sodium Chloride IV 01/30/25 11:14 25 mls/hr Q12HR ADRIANA Administration Insulin Human Lispro 0 unit 01/16/25 07:30 01/24/25 12:16 Insulin Lispro (Admelog) 1 Unit/0.01 Ml Unit SC 02/15/25 07:29 Not Given AC ADRIANA Protocol Metoprolol Succinate 25 mg 01/17/25 09:00 01/24/25 11:59 Metoprolol Succinate Xl 25 Mg Tabcr PO 02/16/25 08:59 25 mg QDAY ADRIANA Administration Ondansetron HCl 4 mg 01/15/25 18:19 Ondansetron Inj 2 Mg/Ml Inj 2 Ml IVP 02/14/25 18:18 Q6H PRN NAUSEA OR VOMITING Protocol Sennosides 1 tab 01/23/25 21:12 Senna Tablet PO 02/22/25 21:11 QDAY PRN CONSTIPATION Protocol Vitamin B Complex/Vit C/Folic Acid 1 tab 01/16/25 09:00 01/24/25 11:59 Vit B12/Vit C/Fa (Nephrovite) Tablet PO 02/15/25 08:59 1 tab QDAY ADRIANA Administration Plan Mr. Springer is a 59?year old male with a relevant medical history of ESRD on HD // followed by Dr. Garcia, HTN, T2DM, and HLD who presents with altered mental status. Nephrology was consulted for the patient's hemodialysis management. #ESRD on HD // #Uremia (resolved) Patient is well known to Dr. Garcia. BUN, Cr, and eGFR were 122, 13.8, and 4 respectively on admission, suggesting the patient was not able to attend one or more of his HD sessions. This was later confirmed by his son who stated that he missed several sessions last week. Increased BUN may explain the altered mental status due to uremic encephalopathy. BUN has returned to baseline around 55 for several days, unlikely to be cause of AMS. - Performed HD 01/15, 01/16, 01/18, 01/20, 01/22, and 01/24 - Dr. Garcia cleared MRI with contrast as contrast is second-generation macrocyclic gadolinium-based contrast agent (GBCA) - Continue calcium acetate 2001 mg for management of hyperphosphatemia. - Continue to monitor renal function - Nephrology will continue to follow Patient was discussed with the Nephrology attending, Dr. Garcia. Thank you for allowing us to participate in the care of this patient. Bebeto Pino, PGY-1 Attending Provider Attestation/Addendum Agree with assessment and plan and finding of resident. Pastor Garcia MD
--- NOTE | 2025-01-24 14:46 | PC.NURSE ---
Pt went to MRI for MRCP, norco had been given prior, after returning from dialysis. Dilaudid not given for procedure as patient is Letharic. Patient was unable to complete imaging. Per MRI staff, patient went into the MRI and stated he can not do it, pull him out. Patient brought back to room. 3/10 pain level, very sleepy and Lethargic.
--- NOTE | 2025-01-24 15:07 | PC.SS ---
rounding note: MRCP pending. Possible transfer higher level of care
--- NOTE | 2025-01-24 15:39 | PD.RESPRO ---
Documentation for date of: 01/24/25 Subjective Subjective Interval history: Pt examined at bedside today. Patient had a rapid overnight for hypotension, which quickly resolved. Patient had bowel x-ray for concern for abdominal distention, however it showed moderate stool burden. Patient reports he has some lower extremity pain he is agreeable to do MRCP. He has no other complaints this time. Exam Vital Signs Temp Pulse Resp BP Pulse Ox O2 Del Method O2 Flow Rate 97.6 F 93 16 147/95 H 100 Nasal Cannula 3 01/24/25 12:00 01/24/25 12:00 01/24/25 12:00 01/24/25 12:00 01/24/25 12:00 01/24/25 12:00 01/24/25 12:00 Narrative Exam General: AAOx3, NAD, weak appearing male HEENT: Moist mucous membranes, conjunctiva clear, EOMI, PERRLA, Cardiovascular: S1, S2, radial pulses +2 bilat, RRR Pulmonary: CTAB bilat no cough, no wheezing GI: RUQ tenderness, rebound tenderness, distended Extremities: No presence of trace or pitting edema in lower extremities bilaterally, dorsalis pedis pulses +2 bilaterally Neuro: AAOx3, limited neurologic exam Psych: Good judgement, thought and behavior Objective Labs 01/25/25 05:44 01/25/25 05:44 Labs: Laboratory Results - last 24 hr 01/24/25 05:44 WBC 16.6 H RBC 2.64 L Hgb 7.8 L Hct 23.9 L MCV 91 MCH 29.5 MCHC 32.6 RDW Std Deviation 62.5 H Plt Count 199 Neut % (Auto) 84 H Lymph % (Auto) 5 L [place] % (Auto) 9 Eos % (Auto) 0 Baso % (Auto) 0 Neut # (Auto) 13.9 H Lymph # (Auto) 0.8 L [place] # (Auto) 1.5 H Eos # (Auto) 0.1 Baso # (Auto) 0.0 Immature Gran # (Auto) 0.26 H Absolute Nucleated RBC 0.00 Immature Gran % 2 H Nucleated RBC % 0 Sodium 134 L Potassium 4.8 Chloride 92 L Carbon Dioxide 23.2 Anion Gap 19 H BUN 59 H Creatinine 6.4 H* D Estim Creat Clear Calc 11.0 L eGFR 9 L* BUN/Creatinine Ratio 9 L Glucose 186 H Calculated Osmolality 289 Calcium 9.9 Corrected Calcium 10.4 H Phosphorus 7.0 H Magnesium 2.0 Total Bilirubin 2.0 H AST 186 H ALT 202 H Alkaline Phosphatase 249 H Total Protein 7.3 Albumin 3.4 L Globulin 3.9 H Albumin/Globulin Ratio 0.9 L ABG Interpretation ABG results: 01/15/25 19:57 VBG pH 7.48 VBG pCO2 27 L VBG pO2 54 VBG Base Excess -2 Quality Measures Quality Measures VTE prophylaxis Assessment & Plan Assessment Current Active Medications: Generic Name Dose Route Start Last Admin Trade Name Freq PRN Reason Stop Dose Admin Acetaminophen 650 mg 01/15/25 18:19 01/24/25 01:44 Acetaminophen 325 Mg Tablet PO 02/14/25 18:18 650 mg Q6H PRN Administration Fever >101.5 Acetaminophen 650 mg 01/15/25 18:19 01/24/25 07:48 Acetaminophen 325 Mg Tablet PO 02/14/25 18:18 650 mg Q6H PRN Administration PAIN SCALE 1-3 (mild Hydrocodone Bitart/Acetaminophen 1 tab 01/24/25 12:05 01/24/25 12:22 Hydrocodone/Apap 5/325 Tablet PO 01/29/25 12:04 1 tab Q6HR PRN Administration pain 4-7 Apixaban 5 mg 01/19/25 09:00 01/24/25 11:59 Apixaban 2.5 Mg Tablet PO 02/18/25 08:59 5 mg BID ADRIANA Administration Calcium Acetate 2,001 mg 01/16/25 12:00 01/24/25 12:02 Calcium Acetate 667 Mg Tablet PO 02/15/25 11:59 2,001 mg TIDWM ADRIANA Administration Dextrose 25 ml 01/15/25 23:44 Dextrose 50%-Water Inj 50 Ml Syringe IV 02/14/25 23:43 Q15MIN PRN BG 50-70 responsive npo pt Dextrose 50 ml 01/15/25 23:44 Dextrose 50%-Water Inj 50 Ml Syringe IV 02/14/25 23:43 Q15MIN PRN BG <50 OR BG <70 & pt unresponsive Glucagon 1 mg 01/15/25 23:44 Glucagon Inj 1 Mg Vial IM Q15MIN PRN BG <70, and no IV access Heparin Sodium (Porcine) 3,300 unit 01/15/25 16:07 01/24/25 11:44 Heparin Sod Inj 1000 Unit/Ml Vial 10 Ml INDWELLCAT 01/29/25 16:06 3,300 unit PRN PRN Administration DIALYSIS Hydromorphone HCl 0.25 mg 01/23/25 15:24 Hydromorphone Inj 2 Mg/Ml Vial IVP 01/28/25 15:23 X1 PRN MRI Piperacillin Sod/Tazobactam 100 mls @ 25 mls/hr 01/23/25 11:15 01/24/25 11:53 Sod 4.5 gm/ Sodium Chloride IV 01/30/25 11:14 25 mls/hr Q12HR ADRIANA Administration Insulin Human Lispro 0 unit 01/16/25 07:30 01/24/25 12:16 Insulin Lispro (Admelog) 1 Unit/0.01 Ml Unit SC 02/15/25 07:29 Not Given AC ADRIANA Protocol Metoprolol Succinate 25 mg 01/17/25 09:00 01/24/25 11:59 Metoprolol Succinate Xl 25 Mg Tabcr PO 02/16/25 08:59 25 mg QDAY ADRIANA Administration Ondansetron HCl 4 mg 01/15/25 18:19 Ondansetron Inj 2 Mg/Ml Inj 2 Ml IVP 02/14/25 18:18 Q6H PRN NAUSEA OR VOMITING Protocol Sennosides 1 tab 01/23/25 21:12 Senna Tablet PO 02/22/25 21:11 QDAY PRN CONSTIPATION Protocol Vitamin B Complex/Vit C/Folic Acid 1 tab 01/16/25 09:00 01/24/25 11:59 Vit B12/Vit C/Fa (Nephrovite) Tablet PO 02/15/25 08:59 1 tab QDAY ADRIANA Administration Plan Assessment 59 year old male with history of hypertension, diabetes, hyperlipidemia, ESRD admitted for acute encepahlopathy. #Abdominal pain #Hepatosplenomegaly #Cholelithiasis #Mild cirrhosis #Elevated Bilirubin, improving #Elevated ALP, improving #Elevated Transaminases, improving #?Ascites CT abdomen showed Liver mildly irregular in contour. Hepatomegaly 19 cm. Splenomegaly 14 cm. Cholelithiasis. Gallbladder wall appears mildly thickened. T bili 2.2, worsening AST and ALT ( 344 and 250 respectively), 261 ALP Concern for stones in CBD MRI abdomen recommends MRCP as there was some possible 2 mm and adjacent 2 mm stones in the distal common bile duct 01/24/2025 Spoke with GI, Dr. Vasquez, who recommends transfer at this time if patient needs ERCP as he is not on-call We will get Dr. Hirsch on board for further recommendations Liver function, bilirubin and ALP improving, however will still follow through with MRCP Patient's mentation today is AAOx3 Plan: Follow up MRCP GI consult Trend CMP Pain control #Acute Encephalopathy - not improving, worse than yesterday #CVA - ruled out #Generalized weakness #Myalgias DDX: toxic/metabolic (ESRD on HD, missed HD sessions), infectious (UTI), hypertensive encephalopathy (sBPs reach 190s), structural/seizures, other: constipation, urinary retention In the ED, BUN was 122, Cr was 13.8, and eGFR was 4. Patient missed several HD appts. Teleneuro assessed patient and noted NIHSS score of 18. CT head w/o 01/15/25: Negative for acute hemorrhage, mass effect or midline shift CTA head/neck 01/15/25: No significant neck arterial stenoses. No critical vertebral artery stenoses in the neck. 60% stenosis intracranial left vertebral artery. Attenuated basilar artery which does fill with no large vessel occlusions involving the basilar artery or posterior cerebral branches. Heavy calcification juxtasellar portions internal carotid arteries, 50% stenosis on the right 60% stenosis on the left. No middle cerebral or anterior cerebral artery large vessel occlusions CXR: Moderate vascular congestion WBC elevated, UA + UTI, serum ammonia WNL, TSH WNL Carotid dopper (01/16/25): Right internal carotid artery demonstrates 10-30% stenosis. Left internal carotid artery demonstrates 0-10% stenosis. No right vertebral artery flow is depicted Brain MRI with MRA negative (01/16/25). Negative for acute hemorrhage mass effect or midline shift. No acute infarct Echo 01/17/2025: Left ventricle dimensions normal with evidence of severe left ventricle hypertrophy asymmetric septal hypertrophy with septal thickness of 20 mm with normal left ventricle function ejection fraction of 60%. Grade 1 diastolic dysfunction is present. The RV is normal in size and systolic function. Aortic Valve sclerosis calcification with evidence of mild aortic stenosis gradient of peak velocity 1.7 m/s Mitral annulus calcification with evidence of mild mitral regurgitation. Plan: - Neurology following. Appreciate Recs - Nephro following. Known to Dr. Garcia, follow recs. HD MWF schdule - Continue calcium acetate for management of hyperphosphatemia (Phos 7 on 7/9 AM labs) #Enterobacter cloacae bacteremia - ongoing treatment #Enterobacter cloacae UTI CSF: turbid, bloody, WBC 06178, RBC >320K, monocytes 95, polynucleocyte 5, glucse high 125, protein high >2500. Gram stain negative. Most likely traumatic tap with reactive pleocytosis. Patient anticoagulated. White blood cell today 23.0 Blood culture (+) x2 sources on 01/15/25 - Enterobacter cloacae UA: WBC 217, Leuk (+) on 01/15/25 Urine Cx 01/15/25 - Enterobacter cloacae Blood cultures 01/18/25 - negative Blood cultures 01/19/2025 gram-positive cocci positive but the other tube showed no growth?so likely contaminant Patient not on steroids Plan: - Dr. Crocker consulted and started him on levofloxacin to 250 mg p.o. daily (01/21/2025 - - Neurology following - LP performed on 01/20/2025 follow-up on results - Zosyn IV renally dosed #?Right renal mass ? new finding #?Metastatic disease CT abdomen on 01/19/2025 showed 32 mm anterior right renal mass MR cervical, thoracic and lumbar spine without contrast on 01/17/2025 showed abnormal heterogeneous marrow signal Neurology initially said MRI spine findings could be seen in hyperparathyroidsm/Hyperphosphatemia/ESRD and not specific for metastasis. However given recent finding of a right renal mass it is warranted to investigate further. Dr. Hannah said MRI contrast okay to give 35 mm Renal cyst on noncontrast MRI #Paroxysmal A-fib, rate controlled [id number]: 4 HAS-BLED:3 Plan: - Eliquis 5 mg BID - Keep Mag > 2 and K > 4 - Telemetry - Home Metoprolol XL 25 mg qday #Hyperparathyroidism #2/2 to ESRD PTH - 194.9 Ca 9.3, Phos 6.5 Plan Continue Calcium acetate ?phosphate improved from yesterday #Renal cyst - bilateral #Renal mass ruled out CT abdomen pelvis wo con Hepatosplenomegaly. Trace ascites. Tiny bilateral renal calculi. Recommend renal sonography follow-up to exclude 32 mm anterior right renal mass. Urinary bladder wall thickening, differential would include cystitis Renal US - ruled renal mass. Bilateral renal cortical thinning. Mild to moderate bilateral renal parenchymal scar formation. 5 mm left renal calculus Abdominal MRI shows 35 mm cyst #Insulin Independent Type II Diabetes mellitus type 2 Hgb A1C 6.1 (down from 6.9). Well controlled. Patient is not on diabetic meds at home, mentions diet-controlled. Glucose 146 in AM - patient does have bacteremia Plan: ? Sliding scale insulin ? Hypoglycemic protocol in place ? Blood sugar checks with meals #Hyperlipidemia LDL 83 Plan: - Continue home Atorvastatin 80mg daily #Anuria?common for patient Patient has not been making any urine in the past 24 hours. Patient last made urine on January 17 400 mL Patient mentions that he only pees once a few weeks at home so this might all be normal for him On abdominal exam abdomen appears distended, soft to palpation, no tenderness to palpation ?Monitor #HAGMA ?resolved #Lactic Acidosis ?resolved Lactate 2, AG 16 Likely related to Lactate HCO3- 23.6 #Health Maintenance Disposition: Telemetry DVT prophylaxis: Eliquis 5 mg BID GI prophylaxis: None indicated at this time Diet: Renal CODE STATUS: DNR Case discussed with my attending Dr. Judith Crandall, PGY-2 Attending Provider Attestation/Addendum I have examined the patient, reviewed labs and imaging findings, discussed the case with the resident(s), and reviewed entered orders. I agree with the plan of care as outlined in this note, with these additional summaries/recommendations: Patient seen at bedside. No acute overnight events. Patient seen after hemodialysis and endorsing severe bilateral lower extremity pain. He is able to move his legs and sensation is intact. He reports he usually develops severe leg pain after dialysis. We will start pain regimen and monitor for improvement. Patient actually appears at baseline mental status today. He is alert and oriented x 3. He currently denies abdominal pain. Patient has had increasing transaminitis with hyperbilirubinemia and elevated alkaline phosphatase during hospitalization. Patient underwent abdominal MRI for renal mass which returned showing 36 mm cyst anterior margin of right kidney with no solid renal mass noted. MRI did note findings suspicious for common bile duct stone and recommended MRCP. Patient is pending MRCP and if confirmed stone then we will initiate transfer for ERCP. Avoid hepatotoxic agents and hepatically dose medications. Continue IV Zosyn. Patient was also noted to have Enterobacter bacteremia and urinary tract infection on admission and receiving IV antibiotics. Patient's atrial fibrillation remains well-controlled. Nephrology following for end-stage renal disease. Continue insulin sliding scale for diabetes mellitus type 2. Please see residents note for additional details and management. Dr. Judith MD
[2025-01-24] MEDS: INSULIN LISPRO (AdmeLOG) 1 UNIT/0.01 ML UNIT SC (16:26)
--- NOTE | 2025-01-24 18:55 | PD.IMCONS ---
HPI Data of Consult Requesting Physician: Art Wong MD Primary Care Provider: Physician No Primary/Family Consult Narrative Reason for consult: Pain abdomen abnormal LFTs abnormal MR abdomen without contrast History of present illness: 59 years male evaluated at request of the internal medicine team for abdominal pain and discomfort He had MRI of the abdomen without contrast showed a 2 mm stone in the CBD along with cholelithiasis Hepatosplenomegaly Patient presented to the hospital on 01/15/2025 with chief complaints of altered mental status Patient became confused in the ER and had dropped her blood pressure rapid response was called and CT scan of the head was negative CT scan of the abdomen pelvis done without contrast on 01/19/2025 showed cirrhosis and cholelithiasis and a 32 mm mass in the right kidney which is confirmed on MRI of the abdomen done on 01/23/2025 to be a renal cyst with multiple small cysts adjoining in the same area Total bilirubin is 2.0 AST ALT 186 and 202 and alk phos of 249 cc:: cc: Art Wong MD Review of Systems Review of Systems Systems Reviewed: All systems reviewed, normal except as documented Past Medical History Surgical History OTHER SURGICAL HX: Essential hypertension Diabetes mellitus type 2 Hyperlipidemia End-stage renal disease on hemodialysis F Dr. Garcia follows the patient Hepatosplenomegaly Paroxysmal atrial fibrillation Meds Home Medications and Allergies Home Medications ?Medication ?Instructions ?Recorded ?Confirmed ?Type sucroferric oxyhydroxide 500 mg 500 mg PO TID 11/03/24 01/20/25 History chewable tablet (Velphoro) vitamin B comp no.3-folic acid 1 1 tab PO .QD 11/03/24 01/20/25 History mg-vit C 60 mg-biotin 300 mcg tablet (Ileana-Koko Rx) apixaban 5 mg tablet (Eliquis) 5 mg PO BID 01/17/25 01/17/25 History Allergies Allergy/AdvReac Type Severity Reaction Status Date / Time No Known Allergies Allergy Verified 01/08/25 07:32 Exam Vital Signs Temp Pulse Resp BP Pulse Ox O2 Del Method O2 Flow Rate 97.2 F 84 22 H 135/82 H 93 L Nasal Cannula 3 01/24/25 16:00 01/24/25 16:00 01/24/25 16:00 01/24/25 16:00 01/24/25 16:00 01/24/25 16:00 01/24/25 16:00 Constitutional Comments: Chronically ill-appearing Routine Respiratory Exam Comments: Normal to auscultation Routine Abdominal Exam Comments: Distended with positive bowel sounds Results Labs 01/24/25 05:44 01/24/25 05:44 Labs: Short CBC 01/24/25 Range/Units 05:44 WBC 16.6 H (3.8-10.6) Thou/mm3 Hgb 7.8 L (13.5-16.0) g/dL Hct 23.9 L (41.0-53.0) % Plt Count 199 (140-440) Thou/mm3 BMP 01/24/25 05:44 Sodium 134 L Potassium 4.8 Chloride 92 L Carbon Dioxide 23.2 BUN 59 H Creatinine 6.4 H* D Glucose 186 H Calcium 9.9 Liver Function 01/24/25 Range/Units 05:44 Total Bilirubin 2.0 H (0.3-1.2) mg/dL AST 186 H (0-34) U/L ALT 202 H (10-49) U/L Alkaline Phosphatase 249 H (46-116) U/L Albumin 3.4 L (3.5-5.0) gm/dL ABG Interpretation ABG results: 01/15/25 19:57 VBG pH 7.48 VBG pCO2 27 L VBG pO2 54 VBG Base Excess -2 Assessment and Plan Additional Assessment & Plan Additional Plan: # Abnormal liver function test most likely secondary to underlying cirrhotic liver disease MR abdomen without contrast shows possibility of a choledocholithiasis with 2 mm stone in the common bile duct LFTs are already improving Would recommend MRCP just to make sure indeed the stone is there He does not need if that is positive and emergent ERCP Which can be done as an outpatient # Abdominal bloating most likely due to stool impaction Would recommend GoLytely flush as there is a lot of stool burden on abdominal x-ray # Cholelithiasis in the setting of cirrhotic liver disease at the moment appears to be asymptomatic Other medical problems include Essential hypertension Diabetes mellitus type 2 End-stage renal disease on hemodialysis MWF Paroxysmal A-fib
[2025-01-24] MEDS: NA SU/NAHCO3/KC/PEG (Golytely) 4,000 ML BTL 4000 ML PO (21:21)
--- NOTE | 2025-01-24 23:04 | PD.NEUROPROG ---
Documentation for date of: 01/24/25 Subjective Subjective Interval history: Patient was seen in telemetry today. No complaints reported. Exam - Neurology Vital Signs Temp Pulse Resp BP Pulse Ox O2 Del Method O2 Flow Rate 97.0 F 81 20 111/58 L 96 Nasal Cannula 2 01/24/25 20:00 01/24/25 20:00 01/24/25 20:00 01/24/25 20:00 01/24/25 20:00 01/24/25 20:00 01/24/25 20:00 Narrative Exam GENERAL APPEARANCE: Well hydrated, well-nourished in no acute distress. HEENT: Normocephalic, atraumatic, extraocular movements intact. Pupils: Equal reacting to light and accommodation NECK: Supple, no JVD or bruits. CARDIOVASULAR: Heart: S1, S2 heard, regular without S3-S4 or murmur no rubs or gallops. LUNGS/CHEST: Clear to auscultation bilaterally. No rails, rhonchi, or wheezing. Normal inspection. ABDOMEN: Soft, nontender, with normal bowel sounds. No pulsatile masses. No rebound, rigidity, or guarding. Normal inspection and palpation. EXTREMITIES: Normal inspection and palpation. No edema, clubbing or cyanosis. He does have asterixis. SKIN: Warm and dry without rashes. Normal inspection. MUSCULOSKELETAL: No cervical, thoracic, lumbar or midline bony tenderness. Normal inspection. NEURO: awake, alert and oriented x3 , speech and language: normal. cranial nerves: II through XII grossly intact. Speech and language: Normal with no dysarthria or dysphasia. Motor system: Tone and bulk: Normal: Strength: Moves all 4 extremities; No pronator drift noted. Deep tendon reflexes: 1+ bilaterally symmetrical. Plantar reflex: Downgoing bilaterally. Sensory system: Intact to pinprick sensation bilaterally. Rest of the exam: Limited, no signs of meningeal irritation noted. PSYCHIATRIC: Normal mood and affect. Objective Labs 01/24/25 05:44 01/24/25 05:44 Labs: Laboratory Results - last 24 hr 01/24/25 05:44 WBC 16.6 H RBC 2.64 L Hgb 7.8 L Hct 23.9 L MCV 91 MCH 29.5 MCHC 32.6 RDW Std Deviation 62.5 H Plt Count 199 Neut % (Auto) 84 H Lymph % (Auto) 5 L [place] % (Auto) 9 Eos % (Auto) 0 Baso % (Auto) 0 Neut # (Auto) 13.9 H Lymph # (Auto) 0.8 L [place] # (Auto) 1.5 H Eos # (Auto) 0.1 Baso # (Auto) 0.0 Immature Gran # (Auto) 0.26 H Absolute Nucleated RBC 0.00 Immature Gran % 2 H Nucleated RBC % 0 Sodium 134 L Potassium 4.8 Chloride 92 L Carbon Dioxide 23.2 Anion Gap 19 H BUN 59 H Creatinine 6.4 H* D Estim Creat Clear Calc 11.0 L eGFR 9 L* BUN/Creatinine Ratio 9 L Glucose 186 H Calculated Osmolality 289 Calcium 9.9 Corrected Calcium 10.4 H Phosphorus 7.0 H Magnesium 2.0 Total Bilirubin 2.0 H AST 186 H ALT 202 H Alkaline Phosphatase 249 H Total Protein 7.3 Albumin 3.4 L Globulin 3.9 H Albumin/Globulin Ratio 0.9 L ABG Interpretation ABG results: 01/15/25 19:57 VBG pH 7.48 VBG pCO2 27 L VBG pO2 54 VBG Base Excess -2 Assessment & Plan Assessment and plan (1) Acute encephalopathy: Status: Resolved (2) End-stage renal disease (ESRD): Status: Chronic Assessment and plan: on diaysis (3) HTN (hypertension): Status: Chronic Assessment and plan: actually low now (4) Diabetes mellitus: Status: Chronic Assessment and plan: under control (5) Myalgia: Status: Resolved
[2025-01-25] VITALS (16 sets, daily range): BP systolic 100–144; BP diastolic 54–99; PULSE 82–103; RESP 13–27; TEMP 36.1–36.8; O2SAT 93–100; BMI 26.7
[2025-01-25 06:12] LABS: Basophils # (Auto) 0.0 Thou/mm3 (0.0-0.2); Basophils % (Auto) 0 % (0-2.5); Eosinophils # (Auto) 0.1 Thou/mm3 (0.0-0.5); Eosinophils % (Auto) 0 % (0-10); Hematocrit 22.7 % (41.0-53.0); Immature Granulocytes Auto 0.33 Thou/mm3 (0.00-0.00); Lymphocytes # (Auto) 1.3 Thou/mm3 (1.0-4.8); Lymphocytes % (Auto) 8 % (10-50); Mean Corpuscular HGB Conc 33.0 g/dl (31.0-37.0); Mean Corpuscular Hemoglobin 29.3 pg (25.0-35.0); Mean Corpuscular Volume 89 fL (80-100); Monocytes # (Auto) 1.9 Thou/mm3 (0.0-0.8); Monocytes % (Auto) 11 % (0-12); Neutrophils # (Auto) 13.2 Thou/mm3 (1.8-7.7); Neutrophils % (Auto) 79 % (37-80); Nucleated Red Blood Cell # 0.00 Thou/mm3 (0.00-0.00); Nucleated Red Blood Cell % 0 /100 WBC (0); Platelet Count 213 Thou/mm3 (140-440); RDW Standard Deviation 60.4 fL (35.1-43.9); Red Blood Count 2.56 Miln/mm3 (4.50-5.90); White Blood Count 16.8 Thou/mm3 (3.8-10.6)
[2025-01-25 06:19] LABS: Hemoglobin 7.5 g/dL (13.5-16.0)
[2025-01-25 06:44] LABS: Alanine Aminotransferase 182 U/L (10-49); Albumin, Serum 3.5 gm/dL (3.5-5.0); Albumin/Globulin Ratio 0.9 (1.2-2.2); Alkaline Phosphatase 252 U/L (46-116); Anion Gap 17 (7-16); Aspartate Amino Transferase 114 U/L (0-34); BUN/Creatinine Ratio 9 Ratio (12-20); Bilirubin,Total 3.0 mg/dL (0.3-1.2); Blood Urea Nitrogen 47 mg/dL (9-23); Calcium 10.1 mg/dL (8.3-10.6); Calcium (Corrected) 10.5 mg/dL (8.5-10.1); Carbon Dioxide 24.5 mMol/L (20.0-31.0); Chloride 98 mMol/L (98-107); Creatinine (Component) 5.2 mg/dL (0.6-1.3); Estimated Creatinine Clearance 13.2 mL/min (>60); Globulin 4.1 gm/dL (2.3-3.5); Glucose 183 mg/dL (74-106); Magnesium 2.3 mg/dL (1.6-2.6); Osmolality,Calculated 294 (275-295); Phosphorous 4.4 mg/dL (2.4-5.1); Potassium 4.7 mMol/L (3.4-5.1); Sodium 139 mMol/L (136-145); Total Protein 7.6 gm/dL (5.7-8.2); eGFR 12 See Note
[2025-01-25] MEDS: INSULIN LISPRO (AdmeLOG) 1 UNIT/0.01 ML UNIT SC ×2 (07:27→11:58)
[2025-01-25] MEDS: PIPER/TAZO INJ 4.5 GM in SODIUM CHLORIDE 0.9% (POP) 100 ML IV ×2 (08:24→21:24)
[2025-01-25] MEDS: CALCIUM ACETATE 667 MG TABLET 2001 MG PO ×2 (08:25→11:58)
[2025-01-25] MEDS: VIT B12/Vit C/FA (Nephrovite) TABLET 1 TAB PO (08:26)
[2025-01-25] MEDS: APIXABAN 2.5 MG TABLET 5 MG PO ×2 (08:26→21:26)
[2025-01-25] MEDS: METOPROLOL SUCCINATE XL 25 MG TABCR PO (08:26)
[2025-01-25 10:00] LABS: Lactate (Lactic Acid) 2.6 mMol/L (0.4-2.0)
[2025-01-25 12:56] LABS: Reflex Lactate? Y
[2025-01-25 12:57] LABS: Lactic Acid, 3 HR 2.6 mMol/L (0.4-2.0)
--- NOTE | 2025-01-25 14:06 | PD.RESPRO ---
Documentation for date of: 01/25/25 Subjective Subjective Interval history: Patient examined at bedside today. No acute overnight events. Patient mentions slept well at night and had breakfast today. No complaints of chest pain, shortness of breath, abdominal pain, nausea, vomiting. Patient had a BM yesterday x 1. Exam Vital Signs Temp Pulse Resp BP Pulse Ox O2 Del Method O2 Flow Rate 97.9 F 92 21 H 130/68 100 Nasal Cannula 2 01/25/25 12:00 01/25/25 12:00 01/25/25 12:00 01/25/25 12:00 01/25/25 12:00 01/25/25 12:00 01/25/25 12:00 Narrative Exam General: AAOx3, NAD, weak appearing male HEENT: Moist mucous membranes, conjunctiva clear, EOMI, PERRLA, Cardiovascular: S1, S2, radial pulses +2 bilat, RRR Pulmonary: CTAB bilat no cough, no wheezing GI: RUQ tenderness, rebound tenderness, distended Extremities: No presence of trace or pitting edema in lower extremities bilaterally, dorsalis pedis pulses +2 bilaterally Neuro: AAOx3, limited neurologic exam Psych: Good judgement, thought and behavior Objective Labs 01/26/25 05:11 01/26/25 05:11 Labs: Laboratory Results - last 24 hr 01/25/25 01/25/25 01/25/25 05:44 09:15 12:56 WBC 16.8 H RBC 2.56 L Hgb 7.5 L Hct 22.7 L MCV 89 MCH 29.3 MCHC 33.0 RDW Std Deviation 60.4 H Plt Count 213 Neut % (Auto) 79 Lymph % (Auto) 8 L [place] % (Auto) 11 Eos % (Auto) 0 Baso % (Auto) 0 Neut # (Auto) 13.2 H Lymph # (Auto) 1.3 [place] # (Auto) 1.9 H Eos # (Auto) 0.1 Baso # (Auto) 0.0 Immature Gran # (Auto) 0.33 H Absolute Nucleated RBC 0.00 Immature Gran % 2 H Nucleated RBC % 0 Sodium 139 Potassium 4.7 Chloride 98 Carbon Dioxide 24.5 Anion Gap 17 H BUN 47 H Creatinine 5.2 H* D Estim Creat Clear Calc 13.2 L eGFR 12 L* BUN/Creatinine Ratio 9 L Glucose 183 H Calculated Osmolality 294 Lactic Acid 2.6 H 2.6 H Calcium 10.1 Corrected Calcium 10.5 H Phosphorus 4.4 Magnesium 2.3 Total Bilirubin 3.0 H D AST 114 H ALT 182 H Alkaline Phosphatase 252 H Total Protein 7.6 Albumin 3.5 Globulin 4.1 H Albumin/Globulin Ratio 0.9 L ABG Interpretation ABG results: 01/15/25 19:57 VBG pH 7.48 VBG pCO2 27 L VBG pO2 54 VBG Base Excess -2 Quality Measures Quality Measures VTE prophylaxis Assessment & Plan Assessment Current Active Medications: Generic Name Dose Route Start Last Admin Trade Name Freq PRN Reason Stop Dose Admin Acetaminophen 650 mg 01/15/25 18:19 01/24/25 01:44 Acetaminophen 325 Mg Tablet PO 02/14/25 18:18 650 mg Q6H PRN Administration Fever >101.5 Acetaminophen 650 mg 01/15/25 18:19 01/24/25 07:48 Acetaminophen 325 Mg Tablet PO 02/14/25 18:18 650 mg Q6H PRN Administration PAIN SCALE 1-3 (mild Hydrocodone Bitart/Acetaminophen 1 tab 01/24/25 12:05 01/24/25 12:22 Hydrocodone/Apap 5/325 Tablet PO 01/29/25 12:04 1 tab Q6HR PRN Administration pain 4-7 Apixaban 5 mg 01/19/25 09:00 01/25/25 08:26 Apixaban 2.5 Mg Tablet PO 02/18/25 08:59 5 mg BID ADRIANA Administration Calcium Acetate 1,334 mg 01/25/25 17:30 Calcium Acetate 667 Mg Tablet PO 02/24/25 17:29 TIDWM ADRIANA Dextrose 25 ml 01/15/25 23:44 Dextrose 50%-Water Inj 50 Ml Syringe IV 02/14/25 23:43 Q15MIN PRN BG 50-70 responsive npo pt Dextrose 50 ml 01/15/25 23:44 Dextrose 50%-Water Inj 50 Ml Syringe IV 02/14/25 23:43 Q15MIN PRN BG <50 OR BG <70 & pt unresponsive Glucagon 1 mg 01/15/25 23:44 Glucagon Inj 1 Mg Vial IM Q15MIN PRN BG <70, and no IV access Heparin Sodium (Porcine) 3,300 unit 01/15/25 16:07 01/24/25 11:44 Heparin Sod Inj 1000 Unit/Ml Vial 10 Ml INDWELLCAT 01/29/25 16:06 3,300 unit PRN PRN Administration DIALYSIS Hydromorphone HCl 0.25 mg 01/23/25 15:24 Hydromorphone Inj 2 Mg/Ml Vial IVP 01/28/25 15:23 X1 PRN MRI Piperacillin Sod/Tazobactam 100 mls @ 25 mls/hr 01/23/25 11:15 01/25/25 08:24 Sod 4.5 gm/ Sodium Chloride IV 01/30/25 11:14 25 mls/hr Q12HR ADRIANA Administration Insulin Human Lispro 0 unit 01/16/25 07:30 01/25/25 11:58 Insulin Lispro (Admelog) 1 Unit/0.01 Ml Unit SC 02/15/25 07:29 4 unit AC ADRIANA Administration Protocol Metoprolol Succinate 25 mg 01/17/25 09:00 01/25/25 08:26 Metoprolol Succinate Xl 25 Mg Tabcr PO 02/16/25 08:59 25 mg QDAY ADRIANA Administration Ondansetron HCl 4 mg 01/15/25 18:19 Ondansetron Inj 2 Mg/Ml Inj 2 Ml IVP 02/14/25 18:18 Q6H PRN NAUSEA OR VOMITING Protocol Sennosides 1 tab 01/23/25 21:12 Senna Tablet PO 02/22/25 21:11 QDAY PRN CONSTIPATION Protocol Vitamin B Complex/Vit C/Folic Acid 1 tab 01/16/25 09:00 01/25/25 08:26 Vit B12/Vit C/Fa (Nephrovite) Tablet PO 02/15/25 08:59 1 tab QDAY ADRIANA Administration Plan Assessment 59 year old male with history of hypertension, diabetes, hyperlipidemia, ESRD admitted for acute encepahlopathy. #Abdominal pain #Hepatosplenomegaly #?Cholangitis #Cholelithiasis #Mild cirrhosis #Elevated Bilirubin, improving #Elevated ALP, improving #Elevated Transaminases, improving #?Ascites CT abdomen showed Liver mildly irregular in contour. Hepatomegaly 19 cm. Splenomegaly 14 cm. Cholelithiasis. Gallbladder wall appears mildly thickened. T bili 2.2, worsening AST and ALT ( 344 and 250 respectively), 261 ALP Concern for stones in CBD MRI abdomen recommends MRCP as there was some possible 2 mm and adjacent 2 mm stones in the distal common bile duct 01/24/2025 Spoke with GI, Dr. Vasquez, who recommends transfer at this time if patient needs ERCP as he is not on-call We will get Dr. Hirsch on board for further recommendations Liver function, bilirubin and ALP improving, however will still follow through with MRCP Patient's mentation today is AAOx3 01/25/[address] Hirsch today, who plans to do colonoscopy today due to downtrending hemoglobin. Today's hemoglobin was 7.5 (7.8). Patient declined MRCP yesterday despite offering pain medications. Dr. Hirsch agrees patient could likely have cholangitis and requires ERCP. We will be looking to transfer this patient soon for ERCP. Plan: Dr. Hirsch following Follow-up on colonoscopy results Trend CMP Pain control #Acute Encephalopathy - waxing and waning #CVA - ruled out #Generalized weakness #Myalgias DDX: toxic/metabolic (ESRD on HD, missed HD sessions), infectious (UTI), hypertensive encephalopathy (sBPs reach 190s), structural/seizures, other: constipation, urinary retention In the ED, BUN was 122, Cr was 13.8, and eGFR was 4. Patient missed several HD appts. Teleneuro assessed patient and noted NIHSS score of 18. CT head w/o 01/15/25: Negative for acute hemorrhage, mass effect or midline shift CTA head/neck 01/15/25: No significant neck arterial stenoses. No critical vertebral artery stenoses in the neck. 60% stenosis intracranial left vertebral artery. Attenuated basilar artery which does fill with no large vessel occlusions involving the basilar artery or posterior cerebral branches. Heavy calcification juxtasellar portions internal carotid arteries, 50% stenosis on the right 60% stenosis on the left. No middle cerebral or anterior cerebral artery large vessel occlusions CXR: Moderate vascular congestion WBC elevated, UA + UTI, serum ammonia WNL, TSH WNL Carotid dopper (01/16/25): Right internal carotid artery demonstrates 10-30% stenosis. Left internal carotid artery demonstrates 0-10% stenosis. No right vertebral artery flow is depicted Brain MRI with MRA negative (01/16/25). Negative for acute hemorrhage mass effect or midline shift. No acute infarct Echo 01/17/2025: Left ventricle dimensions normal with evidence of severe left ventricle hypertrophy asymmetric septal hypertrophy with septal thickness of 20 mm with normal left ventricle function ejection fraction of 60%. Grade 1 diastolic dysfunction is present. The RV is normal in size and systolic function. Aortic Valve sclerosis calcification with evidence of mild aortic stenosis gradient of peak velocity 1.7 m/s Mitral annulus calcification with evidence of mild mitral regurgitation. Plan: - Neurology following. Appreciate Recs - Nephro following. Known to Dr. Garcia, follow recs. HD MWF schdule - Phosphorus level is within normal limits, we went down on calcium acetate to 1334 mg 3 times daily #Enterobacter cloacae bacteremia - ongoing treatment #Enterobacter cloacae UTI CSF: turbid, bloody, WBC 67629, RBC >320K, monocytes 95, polynucleocyte 5, glucse high 125, protein high >2500. Gram stain negative. Most likely traumatic tap with reactive pleocytosis. Patient anticoagulated. White blood cell today 23.0 Blood culture (+) x2 sources on 01/15/25 - Enterobacter cloacae UA: WBC 217, Leuk (+) on 01/15/25 Urine Cx 01/15/25 - Enterobacter cloacae Blood cultures 01/18/25 - negative Blood cultures 01/19/2025 gram-positive cocci positive but the other tube showed no growth?so likely contaminant Patient not on steroids Plan: - Neurology following - LP performed on 01/20/2025 follow-up on results - Zosyn IV renally dosed #Paroxysmal A-fib, rate controlled [id number]: 4 HAS-BLED:3 Plan: - Eliquis 5 mg BID - Keep Mag > 2 and K > 4 - Telemetry - Home Metoprolol XL 25 mg qday #HAGMA #Lactic Acidosis Lactic acid 2.6, AG 17 Likely related to Lactate HCO3- 24.5?abnormally normal #Hyperparathyroidism #2/2 to ESRD PTH - 194.9 Ca10.5, Phos 4.4 Plan: - Calcium acetate changed to 1334 mg 3 times daily #Renal cyst - bilateral #Renal mass ruled out CT abdomen pelvis wo con Hepatosplenomegaly. Trace ascites. Tiny bilateral renal calculi. Recommend renal sonography follow-up to exclude 32 mm anterior right renal mass. Urinary bladder wall thickening, differential would include cystitis Renal US - ruled renal mass. Bilateral renal cortical thinning. Mild to moderate bilateral renal parenchymal scar formation. 5 mm left renal calculus Abdominal MRI shows 35 mm cyst #Insulin Independent Type II Diabetes mellitus type 2 Hgb A1C 6.1 (down from 6.9). Well controlled. Patient is not on diabetic meds at home, mentions diet-controlled. Glucose 146 in AM - patient does have bacteremia Plan: ? Sliding scale insulin ? Hypoglycemic protocol in place ? Blood sugar checks with meals #Hyperlipidemia LDL 83 Plan: - Continue home Atorvastatin 80mg daily #Anuria?common for patient Patient has not been making any urine in the past 24 hours. Patient last made urine on January 17 400 mL Patient mentions that he only pees once a few weeks at home so this might all be normal for him On abdominal exam abdomen appears distended, soft to palpation, no tenderness to palpation ?Monitor #Health Maintenance Disposition: Telemetry DVT prophylaxis: Eliquis 5 mg BID GI prophylaxis: None indicated at this time Diet: Renal CODE STATUS: DNR Case discussed with my attending Dr. Judith Romero MD PGY-1 Attending Provider Attestation/Addendum I have examined the patient, reviewed labs and imaging findings, discussed the case with the resident(s), and reviewed entered orders. I agree with the plan of care as outlined in this note, with these additional summaries/recommendations: Patient & family seen at bedside. No acute overnight events. Discussed with patient and family that we are awaiting MRCP to rule out gallstone in biliary tract. Gastroenterology following with possible EGD for down-trending hemoglobin on hematology panel. Hgb now 7.5. Patient appears at baseline mental status but does appear tired. He is alert and oriented x 3. He currently denies abdominal pain. Patient has had increasing transaminitis with hyperbilirubinemia and elevated alkaline phosphatase during hospitalization. Patient underwent abdominal MRI for renal mass which returned showing 36 mm cyst anterior margin of right kidney with no solid renal mass noted. MRI did note findings suspicious for common bile duct stone and recommended MRCP. Patient is pending MRCP and if confirmed stone then we will initiate transfer for ERCP versus outpatient follow-up. Avoid hepatotoxic agents and hepatically dose medications. Continue IV Zosyn. Patient was also noted to have Enterobacter bacteremia and urinary tract infection on admission and receiving IV antibiotics. Patient's atrial fibrillation remains well-controlled. Hold anticoagulation for now. Nephrology following for end-stage renal disease. Continue insulin sliding scale for diabetes mellitus type 2. Please see residents note for additional details and management. Dr. Judith MD
--- NOTE | 2025-01-25 15:42 | PC.SS ---
Per rounding, Dr Hirsch is following and will provide recs on MRCP. No d/c date at this time.
--- NOTE | 2025-01-25 17:48 | SUR.PHASEI ---
Pt. arrived to recovery via [facility], eyes open, responds to verbal commands, VSS, no c/o pain or nausea at this time, lung sounds clear, equal expansion melissa., pt. receiving 2 liters 02 via AR, report received from Marie PUGA.
--- NOTE | 2025-01-25 18:15 | SUR.PHASEI ---
Called and gave report on pt. s/p egd to Yumiko PUGA on Telemetry unit. Pt. is meets criteria to be transferred to room, VSS, no c/o pain or nausea at this time.
--- NOTE | 2025-01-25 18:20 | SUR.PHASEI ---
Pt. transferred to room 272 via gurney by staff, VSS, no c/o pain or nausea, Yumiko RN assumed care of pt.
[2025-01-25] MEDS: CALCIUM ACETATE 667 MG TABLET 1334 MG PO (18:31)
[2025-01-25] MEDS: SUCRALFATE SUSP 1 GM/10 ML UDC PO ×2 (18:32→21:26)
--- NOTE | 2025-01-25 23:13 | PD.NEUROPROG ---
Documentation for date of: 01/25/25 Subjective Subjective Interval history: Patient was seen in telemetry today. No complaints reported. He just came back from having the Endoscopy, Exam - Neurology Vital Signs Temp Pulse Resp BP Pulse Ox O2 Del Method O2 Flow Rate 97.5 F 88 25 H 141/71 H 98 Nasal Cannula 2 01/25/25 20:00 01/25/25 22:47 01/25/25 22:47 01/25/25 20:00 01/25/25 22:47 01/25/25 20:00 01/25/25 22:47 Narrative Exam GENERAL APPEARANCE: Well hydrated, well-nourished in no acute distress. HEENT: Normocephalic, atraumatic, extraocular movements intact. Pupils: Equal reacting to light and accommodation NECK: Supple, no JVD or bruits. CARDIOVASULAR: Heart: S1, S2 heard, regular without S3-S4 or murmur no rubs or gallops. LUNGS/CHEST: Clear to auscultation bilaterally. No rails, rhonchi, or wheezing. Normal inspection. ABDOMEN: Soft, nontender, with normal bowel sounds. No pulsatile masses. No rebound, rigidity, or guarding. Normal inspection and palpation. EXTREMITIES: Normal inspection and palpation. No edema, clubbing or cyanosis. He does have asterixis. SKIN: Warm and dry without rashes. Normal inspection. MUSCULOSKELETAL: No cervical, thoracic, lumbar or midline bony tenderness. Normal inspection. NEURO: awake, alert and oriented x3 , speech and language: normal. cranial nerves: II through XII grossly intact. Speech and language: Normal with no dysarthria or dysphasia. Motor system: Tone and bulk: Normal: Strength: Moves all 4 extremities; No pronator drift noted. Deep tendon reflexes: 1+ bilaterally symmetrical. Plantar reflex: Downgoing bilaterally. Sensory system: Intact to pinprick sensation bilaterally. Rest of the exam: Limited, no signs of meningeal irritation noted. PSYCHIATRIC: Normal mood and affect. Objective Labs 01/25/25 05:44 01/25/25 05:44 Labs: Laboratory Results - last 24 hr 01/25/25 01/25/25 01/25/25 05:44 09:15 12:56 WBC 16.8 H RBC 2.56 L Hgb 7.5 L Hct 22.7 L MCV 89 MCH 29.3 MCHC 33.0 RDW Std Deviation 60.4 H Plt Count 213 Neut % (Auto) 79 Lymph % (Auto) 8 L [place] % (Auto) 11 Eos % (Auto) 0 Baso % (Auto) 0 Neut # (Auto) 13.2 H Lymph # (Auto) 1.3 [place] # (Auto) 1.9 H Eos # (Auto) 0.1 Baso # (Auto) 0.0 Immature Gran # (Auto) 0.33 H Absolute Nucleated RBC 0.00 Immature Gran % 2 H Nucleated RBC % 0 Sodium 139 Potassium 4.7 Chloride 98 Carbon Dioxide 24.5 Anion Gap 17 H BUN 47 H Creatinine 5.2 H* D Estim Creat Clear Calc 13.2 L eGFR 12 L* BUN/Creatinine Ratio 9 L Glucose 183 H Calculated Osmolality 294 Lactic Acid 2.6 H 2.6 H Calcium 10.1 Corrected Calcium 10.5 H Phosphorus 4.4 Magnesium 2.3 Total Bilirubin 3.0 H D AST 114 H ALT 182 H Alkaline Phosphatase 252 H Total Protein 7.6 Albumin 3.5 Globulin 4.1 H Albumin/Globulin Ratio 0.9 L ABG Interpretation ABG results: 01/15/25 19:57 VBG pH 7.48 VBG pCO2 27 L VBG pO2 54 VBG Base Excess -2 Assessment & Plan Assessment and plan (1) Acute encephalopathy: Status: Resolved (2) End-stage renal disease (ESRD): Status: Chronic (3) HTN (hypertension): Status: Chronic (4) Diabetes mellitus: Status: Chronic (5) Myalgia: Status: Resolved
[2025-01-26] VITALS (13 sets, daily range): BP systolic 110–149; BP diastolic 58–78; PULSE 61–89; RESP 15–97; TEMP 35.8–36.6; O2SAT 87–100; BMI 26.7
[2025-01-26] MEDS: SUCRALFATE SUSP 1 GM/10 ML UDC PO ×4 (05:34→21:28)
[2025-01-26 06:25] LABS: Basophils # (Auto) 0.1 Thou/mm3 (0.0-0.2); Basophils % (Auto) 0 % (0-2.5); Eosinophils # (Auto) 0.1 Thou/mm3 (0.0-0.5); Eosinophils % (Auto) 1 % (0-10); Immature Granulocytes Auto 0.26 Thou/mm3 (0.00-0.00); Lymphocytes # (Auto) 1.4 Thou/mm3 (1.0-4.8); Lymphocytes % (Auto) 8 % (10-50); Mean Corpuscular HGB Conc 31.7 g/dl (31.0-37.0); Mean Corpuscular Hemoglobin 28.9 pg (25.0-35.0); Mean Corpuscular Volume 91 fL (80-100); Monocytes # (Auto) 2.0 Thou/mm3 (0.0-0.8); Monocytes % (Auto) 11 % (0-12); Neutrophils # (Auto) 13.9 Thou/mm3 (1.8-7.7); Neutrophils % (Auto) 79 % (37-80); Nucleated Red Blood Cell # 0.00 Thou/mm3 (0.00-0.00); Nucleated Red Blood Cell % 0 /100 WBC (0); Platelet Count 235 Thou/mm3 (140-440); RDW Standard Deviation 62.5 fL (35.1-43.9); Red Blood Count 2.18 Miln/mm3 (4.50-5.90); White Blood Count 17.7 Thou/mm3 (3.8-10.6)
[2025-01-26 06:53] LABS: Hematocrit 19.9 % (41.0-53.0); Hemoglobin 6.3 g/dL (13.5-16.0)
[2025-01-26 07:08] LABS: Path Review Blood Smear Sent to Pathologist
[2025-01-26 07:10] LABS: Alanine Aminotransferase 123 U/L (10-49); Albumin, Serum 3.2 gm/dL (3.5-5.0); Albumin/Globulin Ratio 0.8 (1.2-2.2); Alkaline Phosphatase 191 U/L (46-116); Anion Gap 18 (7-16); Aspartate Amino Transferase 46 U/L (0-34); BUN/Creatinine Ratio 10 Ratio (12-20); Bilirubin,Total 3.0 mg/dL (0.3-1.2); Blood Urea Nitrogen 75 mg/dL (9-23); Calcium 10.1 mg/dL (8.3-10.6); Calcium (Corrected) 10.7 mg/dL (8.5-10.1); Carbon Dioxide 22.8 mMol/L (20.0-31.0); Chloride 96 mMol/L (98-107); Creatinine (Component) 7.2 mg/dL (0.6-1.3); Estimated Creatinine Clearance 9.5 mL/min (>60); Globulin 4.0 gm/dL (2.3-3.5); Glucose 198 mg/dL (74-106); Magnesium 2.0 mg/dL (1.6-2.6); Osmolality,Calculated 302 (275-295); Phosphorous 5.5 mg/dL (2.4-5.1); Potassium 4.7 mMol/L (3.4-5.1); Sodium 137 mMol/L (136-145); Total Protein 7.2 gm/dL (5.7-8.2); eGFR 8 See Note
[2025-01-26] MEDS: PIPER/TAZO INJ 4.5 GM in SODIUM CHLORIDE 0.9% (POP) 100 ML IV ×2 (08:21→21:29)
[2025-01-26] MEDS: INSULIN LISPRO (AdmeLOG) 1 UNIT/0.01 ML UNIT SC ×3 (08:22→17:18)
[2025-01-26] MEDS: VIT B12/Vit C/FA (Nephrovite) TABLET 1 TAB PO (08:23)
[2025-01-26] MEDS: CALCIUM ACETATE 667 MG TABLET 1334 MG PO ×3 (08:23→17:18)
[2025-01-26] MEDS: METOPROLOL SUCCINATE XL 25 MG TABCR PO (08:24)
[2025-01-26] MEDS: HYDROcodone/APAP 5/325 TABLET 1 TAB PO (08:33)
[2025-01-26 08:49] LABS: Hematocrit 21.0 % (41.0-53.0)
[2025-01-26 08:53] LABS: Hemoglobin 6.8 g/dL (13.5-16.0)
[2025-01-26] MEDS: ACETAMINOPHEN 325 MG TABLET 650 MG PO ×2 (12:47→20:10)
--- NOTE | 2025-01-26 12:55 | ESPR_ITS ---
Documentation for date of: 01/26/25 Subjective Subjective Interval history: Patient examined at bedside today. No acute overnight events. Patient mentions slept well at night and had lunch today. No complaints of chest pain, shortness of breath, abdominal pain, nausea, vomiting. Exam Vital Signs Temp Pulse Resp BP Pulse Ox O2 Del Method O2 Flow Rate 97.1 F 87 22 H 122/78 87 L Room Air 3 01/26/25 08:00 01/26/25 11:24 01/26/25 11:24 01/26/25 08:24 01/26/25 11:24 01/26/25 08:00 01/26/25 04:00 Narrative Exam General: AAOx3, NAD, weak appearing male HEENT: Moist mucous membranes, conjunctiva clear, EOMI, PERRLA, Cardiovascular: S1, S2, radial pulses +2 bilat, RRR Pulmonary: CTAB bilat no cough, no wheezing GI: RUQ tenderness, rebound tenderness, distended abdomen Extremities: No presence of trace or pitting edema in lower extremities bilaterally, dorsalis pedis pulses +2 bilaterally Neuro: AAOx3, limited neurologic exam Psych: Good judgement, thought and behavior Objective Labs 01/27/25 05:20 01/27/25 05:20 Labs: Laboratory Results - last 24 hr 01/25/25 01/26/25 01/26/25 12:56 05:11 08:12 WBC 17.7 H RBC 2.18 L Hgb 6.3 L* 6.8 L* Hct 19.9 L* 21.0 L* MCV 91 MCH 28.9 MCHC 31.7 RDW Std Deviation 62.5 H Plt Count 235 Neut % (Auto) 79 Lymph % (Auto) 8 L [place] % (Auto) 11 Eos % (Auto) 1 Baso % (Auto) 0 Neut # (Auto) 13.9 H Lymph # (Auto) 1.4 [place] # (Auto) 2.0 H Eos # (Auto) 0.1 Baso # (Auto) 0.1 Immature Gran # (Auto) 0.26 H Absolute Nucleated RBC 0.00 Immature Gran % 2 H Nucleated RBC % 0 Smear Path Review Sent to Pathologist Sodium 137 Potassium 4.7 Chloride 96 L Carbon Dioxide 22.8 Anion Gap 18 H BUN 75 H Creatinine 7.2 H* D Estim Creat Clear Calc 9.5 L eGFR 8 L* BUN/Creatinine Ratio 10 L Glucose 198 H Calculated Osmolality 302 H Lactic Acid 2.6 H Calcium 10.1 Corrected Calcium 10.7 H Phosphorus 5.5 H Magnesium 2.0 Total Bilirubin 3.0 H AST 46 H ALT 123 H Alkaline Phosphatase 191 H D Total Protein 7.2 Albumin 3.2 L Globulin 4.0 H Albumin/Globulin Ratio 0.8 L Blood Type A Positive Antibody Screen NEGATIVE Crossmatch See Detail Blood Bank Wristband ID Yes ABG Interpretation ABG results: 01/15/25 19:57 VBG pH 7.48 VBG pCO2 27 L VBG pO2 54 VBG Base Excess -2 Quality Measures Quality Measures VTE prophylaxis Assessment & Plan Assessment Current Active Medications: Generic Name Dose Route Start Last Admin Trade Name Freq PRN Reason Stop Dose Admin Acetaminophen 650 mg 01/15/25 18:19 01/24/25 01:44 Acetaminophen 325 Mg Tablet PO 02/14/25 18:18 650 mg Q6H PRN Administration Fever >101.5 Acetaminophen 650 mg 01/15/25 18:19 01/24/25 07:48 Acetaminophen 325 Mg Tablet PO 02/14/25 18:18 650 mg Q6H PRN Administration PAIN SCALE 1-3 (mild Hydrocodone Bitart/Acetaminophen 1 tab 01/24/25 12:05 01/26/25 08:33 Hydrocodone/Apap 5/325 Tablet PO 01/29/25 12:04 1 tab Q6HR PRN Administration pain 4-7 Apixaban 5 mg 01/19/25 09:00 01/25/25 21:26 Apixaban 2.5 Mg Tablet PO 02/18/25 08:59 5 mg BID ADRIANA Administration Calcium Acetate 1,334 mg 01/25/25 17:30 01/26/25 11:47 Calcium Acetate 667 Mg Tablet PO 02/24/25 17:29 1,334 mg TIDWM ADRIANA Administration Dextrose 25 ml 01/15/25 23:44 Dextrose 50%-Water Inj 50 Ml Syringe IV 02/14/25 23:43 Q15MIN PRN BG 50-70 responsive npo pt Dextrose 50 ml 01/15/25 23:44 Dextrose 50%-Water Inj 50 Ml Syringe IV 02/14/25 23:43 Q15MIN PRN BG <50 OR BG <70 & pt unresponsive Glucagon 1 mg 01/15/25 23:44 Glucagon Inj 1 Mg Vial IM Q15MIN PRN BG <70, and no IV access Heparin Sodium (Porcine) 3,300 unit 01/15/25 16:07 01/24/25 11:44 Heparin Sod Inj 1000 Unit/Ml Vial 10 Ml INDWELLCAT 01/29/25 16:06 3,300 unit PRN PRN Administration DIALYSIS Hydromorphone HCl 0.25 mg 01/23/25 15:24 Hydromorphone Inj 2 Mg/Ml Vial IVP 01/28/25 15:23 X1 PRN MRI Piperacillin Sod/Tazobactam 100 mls @ 25 mls/hr 01/23/25 11:15 01/26/25 08:21 Sod 4.5 gm/ Sodium Chloride IV 01/30/25 11:14 25 mls/hr Q12HR ADRIANA Administration Insulin Human Lispro 0 unit 01/16/25 07:30 01/26/25 11:47 Insulin Lispro (Admelog) 1 Unit/0.01 Ml Unit SC 02/15/25 07:29 1 unit AC ADRIANA Administration Protocol Metoprolol Succinate 25 mg 01/17/25 09:00 01/26/25 08:24 Metoprolol Succinate Xl 25 Mg Tabcr PO 02/16/25 08:59 25 mg QDAY ADRIANA Administration Ondansetron HCl 4 mg 01/15/25 18:19 Ondansetron Inj 2 Mg/Ml Inj 2 Ml IVP 02/14/25 18:18 Q6H PRN NAUSEA OR VOMITING Protocol Pantoprazole Sodium 40 mg 01/26/25 09:00 01/26/25 08:21 Pantoprazole Inj 40 Mg Vial IVP 02/25/25 08:59 40 mg BID ADRIANA Administration Sennosides 1 tab 01/23/25 21:12 Senna Tablet PO 02/22/25 21:11 QDAY PRN CONSTIPATION Protocol Sucralfate 1 gm 01/25/25 18:00 01/26/25 11:47 Sucralfate Susp 1 Gm/10 Ml Udc PO 02/24/25 17:59 1 gm QID ADRIANA Administration Vitamin B Complex/Vit C/Folic Acid 1 tab 01/16/25 09:00 01/26/25 08:23 Vit B12/Vit C/Fa (Nephrovite) Tablet PO 02/15/25 08:59 1 tab QDAY ADRIANA Administration Plan Assessment 59 year old male with history of hypertension, diabetes, hyperlipidemia, ESRD admitted for acute encepahlopathy. #Abdominal pain #Hepatosplenomegaly #?Cholangitis #Cholelithiasis #Mild cirrhosis #Elevated Bilirubin, improving #Elevated ALP, improving #Elevated Transaminases, improving #?Ascites CT abdomen showed Liver mildly irregular in contour. Hepatomegaly 19 cm. Splenomegaly 14 cm. Cholelithiasis. Gallbladder wall appears mildly thickened. T bili 2.2, worsening AST and ALT ( 344 and 250 respectively), 261 ALP Concern for stones in CBD MRI abdomen recommends MRCP as there was some possible 2 mm and adjacent 2 mm stones in the distal common bile duct 01/24/2025 Spoke with GI, Dr. Vasquez, who recommends transfer at this time if patient needs ERCP as he is not on-call We will get Dr. Hirsch on board for further recommendations Liver function, bilirubin and ALP improving, however will still follow through with MRCP Patient's mentation today is AAOx3 01/25/[address] Hirsch today, who plans to do colonoscopy today due to downtrending hemoglobin. Today's hemoglobin was 7.5 (7.8). Patient declined MRCP yesterday despite offering pain medications. Dr. Hirsch agrees patient could likely have cholangitis and requires ERCP. We will be looking to transfer this patient soon for ERCP. Plan: Dr. Hirsch following Follow-up on colonoscopy results Trend CMP Pain control #Upper GI bleed #Diffuse hemorrhagic gastritis #Diffuse duodenitis EGD showed oozing of blood Anemia likely secondary to blood loss Plan ? Hold Eliquis ? Start pantoprazole 40 mg twice daily ? Patient was transfused 1 unit of packed RBC ? Follow hemoglobin and hematocrit ? Dr. Hirsch following #Acute Encephalopathy - waxing and waning #CVA - ruled out #Generalized weakness #Myalgias DDX: toxic/metabolic (ESRD on HD, missed HD sessions), infectious (UTI), hypertensive encephalopathy (sBPs reach 190s), structural/seizures, other: constipation, urinary retention In the ED, BUN was 122, Cr was 13.8, and eGFR was 4. Patient missed several HD appts. Teleneuro assessed patient and noted NIHSS score of 18. CT head w/o 01/15/25: Negative for acute hemorrhage, mass effect or midline shift CTA head/neck 01/15/25: No significant neck arterial stenoses. No critical vertebral artery stenoses in the neck. 60% stenosis intracranial left vertebral artery. Attenuated basilar artery which does fill with no large vessel occlusions involving the basilar artery or posterior cerebral branches. Heavy calcification juxtasellar portions internal carotid arteries, 50% stenosis on the right 60% stenosis on the left. No middle cerebral or anterior cerebral artery large vessel occlusions CXR: Moderate vascular congestion WBC elevated, UA + UTI, serum ammonia WNL, TSH WNL Carotid dopper (01/16/25): Right internal carotid artery demonstrates 10-30% stenosis. Left internal carotid artery demonstrates 0-10% stenosis. No right vertebral artery flow is depicted Brain MRI with MRA negative (01/16/25). Negative for acute hemorrhage mass effect or midline shift. No acute infarct Echo 01/17/2025: Left ventricle dimensions normal with evidence of severe left ventricle hypertrophy asymmetric septal hypertrophy with septal thickness of 20 mm with normal left ventricle function ejection fraction of 60%. Grade 1 diastolic dysfunction is present. The RV is normal in size and systolic function. Aortic Valve sclerosis calcification with evidence of mild aortic stenosis gradient of peak velocity 1.7 m/s Mitral annulus calcification with evidence of mild mitral regurgitation. Plan: - Neurology following. Appreciate Recs - Nephro following. Known to Dr. Garcia, follow recs. HD MW schdule - Phosphorus level is within normal limits, we went down on calcium acetate to 1334 mg 3 times daily #Enterobacter cloacae bacteremia - ongoing treatment #Enterobacter cloacae UTI CSF: turbid, bloody, WBC 91023, RBC >320K, monocytes 95, polynucleocyte 5, glucse high 125, protein high >2500. Gram stain negative. Most likely traumatic tap with reactive pleocytosis. Patient anticoagulated. White blood cell today 23.0 Blood culture (+) x2 sources on 01/15/25 - Enterobacter cloacae UA: WBC 217, Leuk (+) on 01/15/25 Urine Cx 01/15/25 - Enterobacter cloacae Blood cultures 01/18/25 - negative Blood cultures 01/19/2025 gram-positive cocci positive but the other tube showed no growth?so likely contaminant Patient not on steroids Plan: - Neurology following - LP performed on 01/20/2025 follow-up on results - Zosyn IV renally dosed #Paroxysmal A-fib, rate controlled [id number]: 4 HAS-BLED:3 Plan: - Eliquis 5 mg BID ? currently on an hold due to upper GI bleed - Keep Mag > 2 and K > 4 - Telemetry - Home Metoprolol XL 25 mg qday #HAGMA #Lactic Acidosis Lactic acid 2.6, AG 17 Likely related to Lactate HCO3- 24.5?abnormally normal #Hyperparathyroidism #2/2 to ESRD PTH - 194.9 Ca10.5, Phos 4.4 Plan: - Calcium acetate changed to 1334 mg 3 times daily #Renal cyst - bilateral #Renal mass ruled out CT abdomen pelvis wo con Hepatosplenomegaly. Trace ascites. Tiny bilateral renal calculi. Recommend renal sonography follow-up to exclude 32 mm anterior right renal mass. Urinary bladder wall thickening, differential would include cystitis Renal US - ruled renal mass. Bilateral renal cortical thinning. Mild to moderate bilateral renal parenchymal scar formation. 5 mm left renal calculus Abdominal MRI shows 35 mm cyst #Insulin Independent Type II Diabetes mellitus type 2 Hgb A1C 6.1 (down from 6.9). Well controlled. Patient is not on diabetic meds at home, mentions diet-controlled. Glucose 146 in AM - patient does have bacteremia Plan: ? Sliding scale insulin ? Hypoglycemic protocol in place ? Blood sugar checks with meals #Hyperlipidemia LDL 83 Plan: - Continue home Atorvastatin 80mg daily #Anuria?common for patient Patient has not been making any urine in the past 24 hours. Patient last made urine on January 17 400 mL Patient mentions that he only pees once a few weeks at home so this might all be normal for him On abdominal exam abdomen appears distended, soft to palpation, no tenderness to palpation ?Monitor #Health Maintenance Disposition: Telemetry DVT prophylaxis: Eliquis 5 mg BID GI prophylaxis: None indicated at this time Diet: Renal CODE STATUS: DNR Case discussed with my attending Dr. Judith Romero MD PGY-1 Attending Provider Attestation/Addendum I have examined the patient, reviewed labs and imaging findings, discussed the case with the resident(s), and reviewed entered orders. I agree with the plan of care as outlined in this note, with these additional summaries/recommendations: Patient & family seen at bedside. No acute overnight events. Patient is status post EGD yesterday that revealed diffuse hemorrhagic gastritis and diffuse duodenitis with the entire esophagus ulcerated. Continue PPI twice daily and patient started on carfate. Avoid NSAIDs, steroids, alcohol, chocolate, and anticoagulation. Hemoglobin 6.3 this morning and acute blood loss anemia most likely secondary to upper GI bleed. We will order 1 unit PRBCs and follow-up posttransfusion H&H. Patient is also pending MRCP to rule out choledocholithiasis. Patient appears at baseline mental status but does appear tired. He is alert and oriented x 3. He currently denies abdominal pain. Patient has had increasing transaminitis with hyperbilirubinemia and elevated alkaline phosphatase during hospitalization which is now improving. Patient underwent abdominal MRI for renal mass which returned showing 36 mm cyst anterior margin of right kidney with no solid renal mass noted. MRI did note findings suspicious for common bile duct stone and recommended MRCP. Avoid hepatotoxic agents and hepatically dose medications. Continue IV Zosyn. Patient was also noted to have Enterobacter bacteremia and urinary tract infection on admission and receiving IV antibiotics. Patient's atrial fibrillation remains well-controlled. Hold anticoagulation for now. Nephrology following for end-stage renal disease. Continue insulin sliding scale for diabetes mellitus type 2. Please see residents note for additional details and management. Dr. Judith MD
--- NOTE | 2025-01-26 18:04 | ESPR_ITS ---
Documentation for date of: 01/26/25 Subjective Subjective Interval history: Upper endoscopy showed multiple ulcers distal esophagus Findings discussed with the family Exam Vital Signs Temp Pulse Resp BP Pulse Ox O2 Del Method O2 Flow Rate 96.4 F L 63 18 134/70 H 97 Nasal Cannula 1 01/26/25 16:45 01/26/25 16:45 01/26/25 16:45 01/26/25 16:45 01/26/25 16:45 01/26/25 12:00 01/26/25 16:45 Objective Labs 01/26/25 08:12 01/26/25 05:11 Labs: Laboratory Results - last 24 hr 01/26/25 01/26/25 05:11 08:12 WBC 17.7 H RBC 2.18 L Hgb 6.3 L* 6.8 L* Hct 19.9 L* 21.0 L* MCV 91 MCH 28.9 MCHC 31.7 RDW Std Deviation 62.5 H Plt Count 235 Neut % (Auto) 79 Lymph % (Auto) 8 L [place] % (Auto) 11 Eos % (Auto) 1 Baso % (Auto) 0 Neut # (Auto) 13.9 H Lymph # (Auto) 1.4 [place] # (Auto) 2.0 H Eos # (Auto) 0.1 Baso # (Auto) 0.1 Immature Gran # (Auto) 0.26 H Absolute Nucleated RBC 0.00 Immature Gran % 2 H Nucleated RBC % 0 Smear Path Review Sent to Pathologist Sodium 137 Potassium 4.7 Chloride 96 L Carbon Dioxide 22.8 Anion Gap 18 H BUN 75 H Creatinine 7.2 H* D Estim Creat Clear Calc 9.5 L eGFR 8 L* BUN/Creatinine Ratio 10 L Glucose 198 H Calculated Osmolality 302 H Calcium 10.1 Corrected Calcium 10.7 H Phosphorus 5.5 H Magnesium 2.0 Total Bilirubin 3.0 H AST 46 H ALT 123 H Alkaline Phosphatase 191 H D Total Protein 7.2 Albumin 3.2 L Globulin 4.0 H Albumin/Globulin Ratio 0.8 L Blood Type A Positive Antibody Screen NEGATIVE Crossmatch See Detail Blood Bank Wristband ID Yes Impressions Impression: Multiple ulcers distal esophagus Anemia blood loss Choledocholithiasis advised to consult Dr. Vasquez tomorrow he should be back in the for a possible ERCP ABG Interpretation ABG results: 01/15/25 19:57 VBG pH 7.48 VBG pCO2 27 L VBG pO2 54 VBG Base Excess -2 Assessment & Plan A&P Narrative # Abnormal liver function test most likely secondary to underlying cirrhotic liver disease MR abdomen without contrast shows possibility of a choledocholithiasis with 2 mm stone in the common bile duct LFTs are already improving Would recommend MRCP just to make sure indeed the stone is there He does not need if that is positive and emergent ERCP Which can be done as an outpatient # Abdominal bloating most likely due to stool impaction Would recommend GoLytely flush as there is a lot of stool burden on abdominal x- ray # Cholelithiasis in the setting of cirrhotic liver disease at the moment appears to be asymptomatic Other medical problems include Essential hypertension Diabetes mellitus type 2 End-stage renal disease on hemodialysis MWF Paroxysmal A-fib Time Spent With Patient Time: Total time spent is greater than 50% in coordination of care (as documented) at patient's floor/unit and/or counseling patient:
[2025-01-26 18:52] LABS: Hematocrit 23.3 % (41.0-53.0)
[2025-01-26 18:56] LABS: Hemoglobin 7.7 g/dL (13.5-16.0)
--- NOTE | 2025-01-26 19:10 | PD.RESPRO ---
Documentation for date of: 01/26/25 Subjective Subjective Interval history: Patient evaluated at bedside today, family at bedside. Patient was awake and alert, reported mild generalized pain. Reports no new symptoms. Patient has been working with physical therapy on sitting up, standing, walking. Patient was able to sit up in bed without my support. Nurses helped patient transferred from bed to chair. Exam Vital Signs Temp Pulse Resp BP Pulse Ox O2 Del Method O2 Flow Rate 96.4 F L 75 21 H 134/70 H 97 Nasal Cannula 1 01/26/25 16:45 01/26/25 18:59 01/26/25 18:59 01/26/25 16:45 01/26/25 16:45 01/26/25 16:00 01/26/25 16:45 Narrative Exam General: No acute distress, well nourished Eye: PERRL, EOMI, normal conjunctiva, no scleral icterus HENT: Normocephalic, atraumatic, hearing intact to conversation at normal volume, moist oral mucosa Neck: Supple, non-tender, no JVD, no lymphadenopathy Lungs: Non-labored respirations, symmetric chest rise Heart: Peripheral pulses intact bilaterally Abdomen: Soft, non-tender, non-distended Musculoskeletal: Normal range of motion and strength Skin: Skin is warm, dry, no rashes or lesions. Psychiatric: Cooperative, appropriate mood and affect Neurologic: Mental status: Orientation: Oriented to person, place, time, and situation Communication: Patient is cooperative and can follow simple instructions Language: Speech fluent, normal rate and volume, comprehension intact Cranial nerves: CN II: Visual thompson intact CN III: Pupils equal, round, and reactive to light CN III, IV, : No gaze deviation, no nystagmus Horizontal pursuit: intact Vertical pursuit: intact Ptosis: none CN V: Facial sensation to light touch intact bilaterally at the forehead, cheeks, and jaw line CN VII: Face symmetric, no facial droop appreciated CN VIII: Able to hear and respond to conversation at normal volume, intact to finger rub CN IX, X: Palate elevation symmetric, uvula midline CN XI: Head turn and shoulder shrug strong, symmetric bilaterally CN XII: Normal tongue protrusion without deviation, no fasciculations Motor: Normal bulk and tone No atrophy No abnormal movements or fasciculations Muscle strength: Shoulder abduction: R 5/5 L 5/5 Elbow flexion: R 5/5 L 5/5 Elbow extension: R 5/5 L 5/5 Hip flexion: R 5/5 L 5/5 Hip extension: R 5/5 L 5/5 Knee flexion: R 5/5 L 5/5 Knee extension: R 5/5 L 5/5 Patient able to sit on edge of bed by himself Sensory: RUE: Light touch intact LUE: Light touch intact RLE: Light touch intact LLE: Light touch intact Reflexes: Biceps (C5-6): R 2+ L 2+ Brachioradialis (C5-6): R 2+ L 2+ Triceps (C7-8): R 2+ L 2+ Patellae (L3-4): R 2+ L 2+ Achilles (S1-2):R 2+ L 2+ No clonus Plantar reflex downgoing bilaterally Cerebellum: [id number] test and bilateral upper extremities Romberg: Deferred Gait: Deferred Objective Labs 01/27/25 05:20 01/27/25 05:20 Labs: Laboratory Results - last 24 hr 01/26/25 01/26/25 01/26/25 05:11 08:12 18:26 WBC 17.7 H RBC 2.18 L Hgb 6.3 L* 6.8 L* 7.7 L Hct 19.9 L* 21.0 L* 23.3 L MCV 91 MCH 28.9 MCHC 31.7 RDW Std Deviation 62.5 H Plt Count 235 Neut % (Auto) 79 Lymph % (Auto) 8 L [place] % (Auto) 11 Eos % (Auto) 1 Baso % (Auto) 0 Neut # (Auto) 13.9 H Lymph # (Auto) 1.4 [place] # (Auto) 2.0 H Eos # (Auto) 0.1 Baso # (Auto) 0.1 Immature Gran # (Auto) 0.26 H Absolute Nucleated RBC 0.00 Immature Gran % 2 H Nucleated RBC % 0 Smear Path Review Sent to Pathologist Sodium 137 Potassium 4.7 Chloride 96 L Carbon Dioxide 22.8 Anion Gap 18 H BUN 75 H Creatinine 7.2 H* D Estim Creat Clear Calc 9.5 L eGFR 8 L* BUN/Creatinine Ratio 10 L Glucose 198 H Calculated Osmolality 302 H Calcium 10.1 Corrected Calcium 10.7 H Phosphorus 5.5 H Magnesium 2.0 Total Bilirubin 3.0 H AST 46 H ALT 123 H Alkaline Phosphatase 191 H D Total Protein 7.2 Albumin 3.2 L Globulin 4.0 H Albumin/Globulin Ratio 0.8 L Blood Type A Positive Antibody Screen NEGATIVE Crossmatch See Detail Blood Bank Wristband ID Yes ABG Interpretation ABG results: 01/15/25 19:57 VBG pH 7.48 VBG pCO2 27 L VBG pO2 54 VBG Base Excess -2 Quality Measures Quality Measures VTE prophylaxis Assessment & Plan Assessment Current Active Medications: Generic Name Dose Route Start Last Admin Trade Name Freq PRN Reason Stop Dose Admin Acetaminophen 650 mg 01/15/25 18:19 01/24/25 01:44 Acetaminophen 325 Mg Tablet PO 02/14/25 18:18 650 mg Q6H PRN Administration Fever >101.5 Acetaminophen 650 mg 01/15/25 18:19 01/24/25 07:48 Acetaminophen 325 Mg Tablet PO 02/14/25 18:18 650 mg Q6H PRN Administration PAIN SCALE 1-3 (mild Hydrocodone Bitart/Acetaminophen 1 tab 01/24/25 12:05 01/26/25 08:33 Hydrocodone/Apap 5/325 Tablet PO 01/29/25 12:04 1 tab Q6HR PRN Administration pain 4-7 Apixaban 5 mg 01/19/25 09:00 01/25/25 21:26 Apixaban 2.5 Mg Tablet PO 02/18/25 08:59 5 mg BID ADRIANA Administration Calcium Acetate 1,334 mg 01/25/25 17:30 01/26/25 17:18 Calcium Acetate 667 Mg Tablet PO 02/24/25 17:29 1,334 mg TIDWM ADRIANA Administration Dextrose 25 ml 01/15/25 23:44 Dextrose 50%-Water Inj 50 Ml Syringe IV 02/14/25 23:43 Q15MIN PRN BG 50-70 responsive npo pt Dextrose 50 ml 01/15/25 23:44 Dextrose 50%-Water Inj 50 Ml Syringe IV 02/14/25 23:43 Q15MIN PRN BG <50 OR BG <70 & pt unresponsive Glucagon 1 mg 01/15/25 23:44 Glucagon Inj 1 Mg Vial IM Q15MIN PRN BG <70, and no IV access Heparin Sodium (Porcine) 3,300 unit 01/15/25 16:07 01/24/25 11:44 Heparin Sod Inj 1000 Unit/Ml Vial 10 Ml INDWELLCAT 01/29/25 16:06 3,300 unit PRN PRN Administration DIALYSIS Hydromorphone HCl 0.25 mg 01/23/25 15:24 Hydromorphone Inj 2 Mg/Ml Vial IVP 01/28/25 15:23 X1 PRN MRI Piperacillin Sod/Tazobactam 100 mls @ 25 mls/hr 01/23/25 11:15 01/26/25 08:21 Sod 4.5 gm/ Sodium Chloride IV 01/30/25 11:14 25 mls/hr Q12HR ADRIANA Administration Insulin Human Lispro 0 unit 01/16/25 07:30 01/26/25 17:18 Insulin Lispro (Admelog) 1 Unit/0.01 Ml Unit SC 02/15/25 07:29 1 unit AC ADRIANA Administration Protocol Metoprolol Succinate 25 mg 01/17/25 09:00 01/26/25 08:24 Metoprolol Succinate Xl 25 Mg Tabcr PO 02/16/25 08:59 25 mg QDAY ADRIANA Administration Ondansetron HCl 4 mg 01/15/25 18:19 Ondansetron Inj 2 Mg/Ml Inj 2 Ml IVP 02/14/25 18:18 Q6H PRN NAUSEA OR VOMITING Protocol Pantoprazole Sodium 40 mg 01/26/25 09:00 01/26/25 08:21 Pantoprazole Inj 40 Mg Vial IVP 02/25/25 08:59 40 mg BID ADRIANA Administration Sennosides 1 tab 01/23/25 21:12 Senna Tablet PO 02/22/25 21:11 QDAY PRN CONSTIPATION Protocol Sucralfate 1 gm 01/25/25 18:00 01/26/25 17:18 Sucralfate Susp 1 Gm/10 Ml Udc PO 02/24/25 17:59 1 gm QID ADRIANA Administration Vitamin B Complex/Vit C/Folic Acid 1 tab 01/16/25 09:00 01/26/25 08:23 Vit B12/Vit C/Fa (Nephrovite) Tablet PO 02/15/25 08:59 1 tab QDAY ADRIANA Administration Plan #Acute Encephalopathy, resolved Patient on HD, missed several HD appointments last week 2/2 fall with head strike. Initial presentation: AMS with agitation, unable to perform physical exam 2/2 pain upon light touch to extremities Mental status initially improved then worsened No hx of IVDU, supplements per son CT head w/o, CTA head/neck, MRI negative for acute hemorrhage, mass effect, midline shift, LVO, acute infarct. CTA head/neck showed 60% stenosis intracranial left vertebral artery.50% stenosis, on the right 60% stenosis on the left Carotid doppler: Right internal carotid artery demonstrates 10-30% stenosis.Left internal carotid artery demonstrates 0-10% stenosis.No right vertebral artery flow is depicted Rhabdomyolysis r/o given CK WNL B12 high 1497, folate WNL, TSH and T4 WNL CSF: turbid, bloody, WBC 46449, RBC >320K, monocytes 95, polynucleocyte 5, glucse high 125, protein high >2500. Gram stain negative. Most likely traumatic tap with reactive pleocytosis. Patient anticoagulated. CSF culture NGTD Cocci IgM/IgG, HIV, Hep A/B/C negative Blood cultures 01/15 and 01/16: GNR, Enterobacter --> Staph epidermidis x1, NGTD on other preliminary reports Cocci IgM/IgG negative DDX: toxic/metabolic (ESRD on HD, missed HD sessions / uremia, hyperphosphatemia), infectious (HSV, viral encephalitis, bacteremia, infective endocarditis, TB, fungal infection), inflammatory, neoplastic. Possibly compounded by delirium as patient's exam fluctuates throughout day. Plan - Pending CSF viral panel (VDRL, HSV, WNV) - Pending HSV PCR - Pending blood cultures - Given patient's fluctuations on exam throughout day with vast improvement upon evening exam, no need to repeat LP with IR or MRI brain with contrast. - Will encourage him to participate with the physical therapy when appropriate - Delirium precautions #Paroxysmal A-fib, rate controlled Plan: - Management per primary team - Eliquis 5 mg BID #Hyperlipidemia Triglycerides high 310 HDL low 5 Plan: - Continue high intensity statin #Hyperparathyroidism #Hyperphosphatemia - improving PTH 194.9 Phos 9 --> 5.5 Plan: - Management per primary team - Phoslo #ESRD on HD M/W/F Plan: - Management per primary team #Diabetes mellitus type 2 Hgb A1C 6.1 (down from 6.9) Plan: - Management per primary team - SSI #Transaminitis, downtrending Abdominal US: negative for ascites CT abdomen/pelvis: Cirrhosis versus primary hepatocellular disease. Cholelithiasis. 32 mm anterior right renal mass. No abdominal or pelvic abscess Abdominal MRI w/o: Recommend MRCP follow-up to exclude small stones in the distal common bile duct. Cholelithiasis. 36 mm cyst anterior margin right kidney, no solid renal mass lesion noted Ammonia <10, Total bilirubin elevated Plan: - Management per primary team # Esophagitis ulcers # Hiatal hernia # Hemorrhagic gastritis and duodenitis # GERD Per EGD Plan: - Management per primary team and GI?continue pantoprazole, hold anticoagulation due to hemorrhagic gastritis # Normocytic anemia Most likely secondary to blood loss secondary to hemorrhage gastritis Hemoglobin this a.m. 6.3 --> transfused 1 unit PRBC --> repeat hemoglobin 6.8 Plan: - Management per primary team #Renal mass Incidental finding on MRI w/o Plan: - Management per primary team - Pending MRI w/ contrast abdomen #Neck pain #Sciatica MRI C spine: C4-C5 4 mm central osteophyte disc complex. C5-C6 5 mm central subarticular also by disc complex with advanced bilateral neural foraminal stenosis. C6-C7 advanced left neural foraminal stenosis. Abnormal heterogeneous signal throughout all visualized cervical vertebral bodies MRI T spine: No thoracic fracture. Mild diffuse thoracic disc narrowing Heterogeneous marrow signal involving thoracic vertebral bodies MRI L spine: Abnormal marrow signal. L5-S1 4 mm central lumbar disc bulge extending to the foraminal regions with mild bilateral L5 ganglionic compression +straight leg raise test b/l Plan: - MRI L spine w/ contrast if ok with nephrology - Will consider doing EMG nerve conduction study of both lower extremities as an outpatient to evaluate for lumbosacral radiculopathy/neuropathy Plan discussed with Dr. Abdiaziz Cruz, PGY1 Attending Provider Attestation/Addendum I independently reviewed the patient and agree with resident's findings, assessment and plan of care. Continue with physical therapy encouraged him to participate to improve. Neurologically stable and will sign off.
--- NOTE | 2025-01-26 22:34 | PD.NEPHPROG ---
Documentation for date of: 01/26/25 Subjective Subjective Interval history: Pt is seen and examined pt is confused Exam Vital Signs Temp Pulse Resp BP Pulse Ox O2 Del Method O2 Flow Rate 96.7 F L 76 19 145/71 H 98 Room Air 1 01/26/25 20:00 01/26/25 20:00 01/26/25 20:00 01/26/25 20:00 01/26/25 20:00 01/26/25 20:00 01/26/25 16:45 Narrative Exam General: Sleepy, no acute distress. Skin: Warm, dry, intact, no obvious rash. Head: Normocephalic, atraumatic. Respiratory: Respirations unlabored on 3L NC Gastrointestinal: Soft, nontender, distended. No guarding or rebound tenderness. Extremities: No edema, no cyanosis, no clubbing. 2+ radial pulse bilaterally, 2+ pedal pulse bilaterally. Objective Labs 01/26/25 18:26 01/26/25 05:11 Labs: Laboratory Results - last 24 hr 01/26/25 01/26/25 01/26/25 05:11 08:12 18:26 WBC 17.7 H RBC 2.18 L Hgb 6.3 L* 6.8 L* 7.7 L Hct 19.9 L* 21.0 L* 23.3 L MCV 91 MCH 28.9 MCHC 31.7 RDW Std Deviation 62.5 H Plt Count 235 Neut % (Auto) 79 Lymph % (Auto) 8 L [place] % (Auto) 11 Eos % (Auto) 1 Baso % (Auto) 0 Neut # (Auto) 13.9 H Lymph # (Auto) 1.4 [place] # (Auto) 2.0 H Eos # (Auto) 0.1 Baso # (Auto) 0.1 Immature Gran # (Auto) 0.26 H Absolute Nucleated RBC 0.00 Immature Gran % 2 H Nucleated RBC % 0 Smear Path Review Sent to Pathologist Sodium 137 Potassium 4.7 Chloride 96 L Carbon Dioxide 22.8 Anion Gap 18 H BUN 75 H Creatinine 7.2 H* D Estim Creat Clear Calc 9.5 L eGFR 8 L* BUN/Creatinine Ratio 10 L Glucose 198 H Calculated Osmolality 302 H Calcium 10.1 Corrected Calcium 10.7 H Phosphorus 5.5 H Magnesium 2.0 Total Bilirubin 3.0 H AST 46 H ALT 123 H Alkaline Phosphatase 191 H D Total Protein 7.2 Albumin 3.2 L Globulin 4.0 H Albumin/Globulin Ratio 0.8 L Blood Type A Positive Antibody Screen NEGATIVE Crossmatch See Detail Blood Bank Wristband ID Yes ABG Interpretation ABG results: 01/15/25 19:57 VBG pH 7.48 VBG pCO2 27 L VBG pO2 54 VBG Base Excess -2 Assessment & Plan Assessment and plan (1) Acute encephalopathy: Status: Resolved (2) End-stage renal disease (ESRD): Status: Chronic (3) HTN (hypertension): Status: Chronic (4) Diabetes mellitus: Status: Chronic (5) Myalgia: Status: Resolved Additional Assessment & Plan Additional Plan: Will c/w HD 3 times a week
[2025-01-27] VITALS (24 sets, daily range): BP systolic 77–162; BP diastolic 42–113; PULSE 64–91; RESP 15–100; TEMP 35.8–36.6; O2SAT 95–100; BMI 28.7
[2025-01-27] MEDS: SUCRALFATE SUSP 1 GM/10 ML UDC PO ×4 (05:22→20:25)
[2025-01-27] MEDS: HYDROcodone/APAP 5/325 TABLET 1 TAB PO ×3 (05:22→22:02)
[2025-01-27 05:49] LABS: Basophils # (Auto) 0.1 Thou/mm3 (0.0-0.2); Basophils % (Auto) 0 % (0-2.5); Eosinophils # (Auto) 0.3 Thou/mm3 (0.0-0.5); Eosinophils % (Auto) 2 % (0-10); Hematocrit 21.2 % (41.0-53.0); Immature Granulocytes Auto 0.17 Thou/mm3 (0.00-0.00); Lymphocytes # (Auto) 1.4 Thou/mm3 (1.0-4.8); Lymphocytes % (Auto) 9 % (10-50); Mean Corpuscular HGB Conc 34.4 g/dl (31.0-37.0); Mean Corpuscular Hemoglobin 29.8 pg (25.0-35.0); Mean Corpuscular Volume 87 fL (80-100); Monocytes # (Auto) 1.5 Thou/mm3 (0.0-0.8); Monocytes % (Auto) 10 % (0-12); Neutrophils # (Auto) 12.3 Thou/mm3 (1.8-7.7); Neutrophils % (Auto) 78 % (37-80); Nucleated Red Blood Cell # 0.00 Thou/mm3 (0.00-0.00); Nucleated Red Blood Cell % 0 /100 WBC (0); Platelet Count 210 Thou/mm3 (140-440); RDW Standard Deviation 56.8 fL (35.1-43.9); Red Blood Count 2.45 Miln/mm3 (4.50-5.90); White Blood Count 15.7 Thou/mm3 (3.8-10.6)
[2025-01-27 05:54] LABS: Hemoglobin 7.3 g/dL (13.5-16.0)
[2025-01-27 06:09] LABS: Alanine Aminotransferase 85 U/L (10-49); Albumin, Serum 3.1 gm/dL (3.5-5.0); Albumin/Globulin Ratio 0.8 (1.2-2.2); Alkaline Phosphatase 154 U/L (46-116); Anion Gap 19 (7-16); Aspartate Amino Transferase 28 U/L (0-34); BUN/Creatinine Ratio 11 Ratio (12-20); Bilirubin,Total 2.2 mg/dL (0.3-1.2); Blood Urea Nitrogen 92 mg/dL (9-23); Calcium 10.0 mg/dL (8.3-10.6); Calcium (Corrected) 10.7 mg/dL (8.5-10.1); Carbon Dioxide 20.8 mMol/L (20.0-31.0); Chloride 96 mMol/L (98-107); Creatinine (Component) 8.5 mg/dL (0.6-1.3); Estimated Creatinine Clearance 8.1 mL/min (>60); Globulin 3.9 gm/dL (2.3-3.5); Glucose 195 mg/dL (74-106); Magnesium 2.1 mg/dL (1.6-2.6); Osmolality,Calculated 305 (275-295); Phosphorous 6.7 mg/dL (2.4-5.1); Potassium 4.9 mMol/L (3.4-5.1); Sodium 136 mMol/L (136-145); Total Protein 7.0 gm/dL (5.7-8.2); eGFR 7 See Note
[2025-01-27] MEDS: CALCIUM ACETATE 667 MG TABLET 1334 MG PO ×3 (07:33→16:32)
[2025-01-27] MEDS: INSULIN LISPRO (AdmeLOG) 1 UNIT/0.01 ML UNIT SC ×2 (07:33→11:34)
[2025-01-27] MEDS: VIT B12/Vit C/FA (Nephrovite) TABLET 1 TAB PO (08:49)
[2025-01-27] MEDS: PIPER/TAZO INJ 4.5 GM in SODIUM CHLORIDE 0.9% (POP) 100 ML IV ×2 (08:50→20:24)
--- NOTE | 2025-01-27 09:14 | PC.SS ---
Follow up note: MRCP is pending. Pt will return to [place] upon dc.
--- NOTE | 2025-01-27 10:25 | PD.RESPRO ---
Documentation for date of: 01/27/25 Subjective Subjective Interval history: Overnight events: No acute events overnight. Patient was seen and examined at bedside. AM vitals and labs reviewed. WBC 15.7, H&H 7.3/21.2, BUN 92, creatinine 8.5, GFR 7, phosphate 6.7. Ins/outs 1690/0. Patient is currently on pip-tazo for Enterobacter bacteremia. Patient had a blood transfusion yesterday a.m. and calcium acetate was decreased to 1334 mg 3 times daily yesterday. There is currently work to transfer the patient for ERCP due to GI concerns for cholangitis. Patient's last hemodialysis session was on 01/24. During today's visit the patient seemed a bit more awake but still fell asleep very easily. Unlike prior visits, today the patient is complaining of chills. The patient was wrapped in blankets and was noticeably shaking. The patient stated that he has been feeling hot and cold on and off. When asked about any pain, the patient stated that he has a 6 out of 10 pain in his back, but denies any abdominal pain and pain anywhere else. Will plan for hemodialysis today. Review of systems otherwise negative except for what is mentioned above. Exam Vital Signs Temp Pulse Resp BP Pulse Ox O2 Del Method O2 Flow Rate 96.6 F L 68 15 136/65 H 95 Nasal Cannula 1 01/27/25 08:00 01/27/25 08:00 01/27/25 08:00 01/27/25 08:00 01/27/25 08:00 01/27/25 04:00 01/27/25 04:00 Narrative Exam Physical Exam: General: Sleepy, no acute distress. Shivering. Skin: Warm, dry, intact, no obvious rash. Head: Normocephalic, atraumatic. Eye: Icteric conjunctiva, PERRL. Throat: Oral mucosa moist. No obvious lesions in oropharynx. Cardiovascular: Regular rate and rhythm, no murmur, +S1/S2. Respiratory: Lungs are clear to auscultation, respirations unlabored, no crackles, no wheezing. Gastrointestinal: Soft, nontender, distended. No guarding or rebound tenderness. Extremities: No edema, no cyanosis, no clubbing. 2+ radial pulse bilaterally, 2+ pedal pulse bilaterally. Neuro: No focal deficits observed. Conversant, moving all extremities. No overt cerebellar signs/incoordination. Psychiatric: Cooperative, appropriate affect. Objective Labs 01/30/25 04:27 01/30/25 04:27 Labs: Laboratory Results - last 24 hr 01/26/25 01/26/25 01/27/25 08:12 18:26 05:20 WBC 15.7 H RBC 2.45 L Hgb 7.7 L 7.3 L Hct 23.3 L 21.2 L* MCV 87 MCH 29.8 MCHC 34.4 RDW Std Deviation 56.8 H Plt Count 210 Neut % (Auto) 78 Lymph % (Auto) 9 L [place] % (Auto) 10 Eos % (Auto) 2 Baso % (Auto) 0 Neut # (Auto) 12.3 H Lymph # (Auto) 1.4 [place] # (Auto) 1.5 H Eos # (Auto) 0.3 Baso # (Auto) 0.1 Immature Gran # (Auto) 0.17 H Absolute Nucleated RBC 0.00 Immature Gran % 1 H Nucleated RBC % 0 Sodium 136 Potassium 4.9 Chloride 96 L Carbon Dioxide 20.8 Anion Gap 19 H BUN 92 H Creatinine 8.5 H* D Estim Creat Clear Calc 8.1 L eGFR 7 L* BUN/Creatinine Ratio 11 L Glucose 195 H Calculated Osmolality 305 H Calcium 10.0 Corrected Calcium 10.7 H Phosphorus 6.7 H Magnesium 2.1 Total Bilirubin 2.2 H D AST 28 ALT 85 H Alkaline Phosphatase 154 H D Total Protein 7.0 Albumin 3.1 L Globulin 3.9 H Albumin/Globulin Ratio 0.8 L Blood Type A Positive Antibody Screen NEGATIVE Crossmatch See Detail Blood Bank Wristband ID Yes ABG Interpretation ABG results: 01/15/25 19:57 VBG pH 7.48 VBG pCO2 27 L VBG pO2 54 VBG Base Excess -2 Quality Measures Quality Measures VTE prophylaxis Assessment & Plan Assessment Current Active Medications: Generic Name Dose Route Start Last Admin Trade Name Freq PRN Reason Stop Dose Admin Acetaminophen 650 mg 01/15/25 18:19 01/24/25 01:44 Acetaminophen 325 Mg Tablet PO 02/14/25 18:18 650 mg Q6H PRN Administration Fever >101.5 Acetaminophen 650 mg 01/15/25 18:19 01/26/25 20:10 Acetaminophen 325 Mg Tablet PO 02/14/25 18:18 650 mg Q6H PRN Administration PAIN SCALE 1-3 (mild Hydrocodone Bitart/Acetaminophen 1 tab 01/24/25 12:05 01/27/25 05:22 Hydrocodone/Apap 5/325 Tablet PO 01/29/25 12:04 1 tab Q6HR PRN Administration pain 4-7 Apixaban 5 mg 01/19/25 09:00 01/25/25 21:26 Apixaban 2.5 Mg Tablet PO 02/18/25 08:59 5 mg BID ADRIANA Administration Calcium Acetate 1,334 mg 01/25/25 17:30 01/27/25 07:33 Calcium Acetate 667 Mg Tablet PO 02/24/25 17:29 1,334 mg TIDWM ADRIANA Administration Dextrose 25 ml 01/15/25 23:44 Dextrose 50%-Water Inj 50 Ml Syringe IV 02/14/25 23:43 Q15MIN PRN BG 50-70 responsive npo pt Dextrose 50 ml 01/15/25 23:44 Dextrose 50%-Water Inj 50 Ml Syringe IV 02/14/25 23:43 Q15MIN PRN BG <50 OR BG <70 & pt unresponsive Glucagon 1 mg 01/15/25 23:44 Glucagon Inj 1 Mg Vial IM Q15MIN PRN BG <70, and no IV access Heparin Sodium (Porcine) 3,300 unit 01/15/25 16:07 01/24/25 11:44 Heparin Sod Inj 1000 Unit/Ml Vial 10 Ml INDWELLCAT 01/29/25 16:06 3,300 unit PRN PRN Administration DIALYSIS Hydromorphone HCl 0.25 mg 01/23/25 15:24 Hydromorphone Inj 2 Mg/Ml Vial IVP 01/28/25 15:23 X1 PRN MRI Piperacillin Sod/Tazobactam 100 mls @ 25 mls/hr 01/23/25 11:15 01/27/25 08:50 Sod 4.5 gm/ Sodium Chloride IV 01/30/25 11:14 25 mls/hr Q12HR ADRIANA Administration Insulin Human Lispro 0 unit 01/16/25 07:30 01/27/25 07:33 Insulin Lispro (Admelog) 1 Unit/0.01 Ml Unit SC 02/15/25 07:29 1 unit AC ADRIANA Administration Protocol Metoprolol Succinate 25 mg 01/17/25 09:00 01/27/25 08:51 Metoprolol Succinate Xl 25 Mg Tabcr PO 02/16/25 08:59 Not Given QDAY ADRIANA Ondansetron HCl 4 mg 01/15/25 18:19 Ondansetron Inj 2 Mg/Ml Inj 2 Ml IVP 02/14/25 18:18 Q6H PRN NAUSEA OR VOMITING Protocol Pantoprazole Sodium 40 mg 01/26/25 09:00 01/27/25 08:50 Pantoprazole Inj 40 Mg Vial IVP 02/25/25 08:59 40 mg BID ADRIANA Administration Sennosides 1 tab 01/23/25 21:12 Senna Tablet PO 02/22/25 21:11 QDAY PRN CONSTIPATION Protocol Sucralfate 1 gm 01/25/25 18:00 01/27/25 05:22 Sucralfate Susp 1 Gm/10 Ml Udc PO 02/24/25 17:59 1 gm QID ADRIANA Administration Vitamin B Complex/Vit C/Folic Acid 1 tab 01/16/25 09:00 01/27/25 08:49 Vit B12/Vit C/Fa (Nephrovite) Tablet PO 02/15/25 08:59 1 tab QDAY ADRIANA Administration Plan Mr. Springer is a 59?year old male with a relevant medical history of ESRD on HD // followed by Dr. Garcia, HTN, T2DM, and HLD who presents with altered mental status. Nephrology was consulted for the patient's hemodialysis management. #ESRD on HD // #Uremia (resolved) Patient is well known to Dr. Garcia. BUN, Cr, and eGFR were 122, 13.8, and 4 respectively on admission, suggesting the patient was not able to attend one or more of his HD sessions. This was later confirmed by his son who stated that he missed several sessions last week. Increased BUN may explain the altered mental status due to uremic encephalopathy. BUN has returned to baseline around 55 for several days, unlikely to be cause of AMS. - Performed HD 01/15, 01/16, 01/18, 01/20, 01/22, and 01/24 - HD session planned for today (01/27) - Dr. Garcia cleared MRI with contrast as contrast is second-generation macrocyclic gadolinium-based contrast agent (GBCA) - Continue calcium acetate 1334 mg for management of hyperphosphatemia. - Phosphate elevated 01/27, expected given 2 days break from HD - Will reassess phosphate tomorrow and evaluate if calcium acetate dose should be increased. - Continue to monitor renal function - Nephrology will continue to follow Patient was discussed with the Nephrology attending, Dr. Garcia. Thank you for allowing us to participate in the care of this patient. Bebeto Pino, PGY-1 Attending Provider Attestation/Addendum with assessment and plan and finding of resident. Seen and examined. Labs are reviewed Pastor Garcia MD
--- NOTE | 2025-01-27 13:02 | PD.RESPRO ---
Documentation for date of: 01/27/25 Exam Vital Signs Temp Pulse Resp BP Pulse Ox O2 Del Method O2 Flow Rate 96.8 F 71 18 162/113 H 96 Nasal Cannula 2 01/27/25 12:43 01/27/25 13:00 01/27/25 12:43 01/27/25 13:00 01/27/25 12:43 01/27/25 04:00 01/27/25 12:43 Narrative Exam General: No acute distress, well nourished Eye: PERRL, EOMI, normal conjunctiva, no scleral icterus HENT: Normocephalic, atraumatic, hearing intact to conversation at normal volume, moist oral mucosa Neck: Supple, non-tender, no JVD, no lymphadenopathy Lungs: Non-labored respirations, symmetric chest rise Heart: Peripheral pulses intact bilaterally Abdomen: Soft, non-tender, non-distended Musculoskeletal: Normal range of motion and strength Skin: Skin is warm, dry, no rashes or lesions. Psychiatric: Cooperative, appropriate mood and affect Neurologic: Mental status: Orientation: Oriented to person, place, time, and situation Communication: Patient is cooperative and can follow simple instructions Language: Speech fluent, normal rate and volume, comprehension intact Cranial nerves: CN II: Visual thompson intact CN III: Pupils equal, round, and reactive to light CN III, IV, : No gaze deviation, no nystagmus Horizontal pursuit: intact Vertical pursuit: intact Ptosis: none CN V: Facial sensation to light touch intact bilaterally at the forehead, cheeks, and jaw line CN VII: Face symmetric, no facial droop appreciated CN VIII: Able to hear and respond to conversation at normal volume, intact to finger rub CN IX, X: Palate elevation symmetric, uvula midline CN XI: Head turn and shoulder shrug strong, symmetric bilaterally CN XII: Normal tongue protrusion without deviation, no fasciculations Motor: Normal bulk and tone No atrophy No abnormal movements or fasciculations Muscle strength: Shoulder abduction: R 5/5 L 5/5 Elbow flexion: R 5/5 L 5/5 Elbow extension: R 5/5 L 5/5 Hip flexion: R 5/5 L 5/5 Hip extension: R 5/5 L 5/5 Knee flexion: R 5/5 L 5/5 Knee extension: R 5/5 L 5/5 Patient able to sit on edge of bed by himself Sensory: RUE: Light touch intact LUE: Light touch intact RLE: Light touch intact LLE: Light touch intact Reflexes: Biceps (C5-6): R 2+ L 2+ Brachioradialis (C5-6): R 2+ L 2+ Triceps (C7-8): R 2+ L 2+ Patellae (L3-4): R 2+ L 2+ Achilles (S1-2):R 2+ L 2+ No clonus Plantar reflex downgoing bilaterally Cerebellum: [id number] test and bilateral upper extremities Romberg: Deferred Gait: Deferred Objective Labs 01/27/25 05:20 01/27/25 05:20 Labs: Laboratory Results - last 24 hr 01/26/25 01/26/25 01/27/25 08:12 18:26 05:20 WBC 15.7 H RBC 2.45 L Hgb 7.7 L 7.3 L Hct 23.3 L 21.2 L* MCV 87 MCH 29.8 MCHC 34.4 RDW Std Deviation 56.8 H Plt Count 210 Neut % (Auto) 78 Lymph % (Auto) 9 L Kendall % (Auto) 10 Eos % (Auto) 2 Baso % (Auto) 0 Neut # (Auto) 12.3 H Lymph # (Auto) 1.4 Kendall # (Auto) 1.5 H Eos # (Auto) 0.3 Baso # (Auto) 0.1 Immature Gran # (Auto) 0.17 H Absolute Nucleated RBC 0.00 Immature Gran % 1 H Nucleated RBC % 0 Sodium 136 Potassium 4.9 Chloride 96 L Carbon Dioxide 20.8 Anion Gap 19 H BUN 92 H Creatinine 8.5 H* D Estim Creat Clear Calc 8.1 L eGFR 7 L* BUN/Creatinine Ratio 11 L Glucose 195 H Calculated Osmolality 305 H Calcium 10.0 Corrected Calcium 10.7 H Phosphorus 6.7 H Magnesium 2.1 Total Bilirubin 2.2 H D AST 28 ALT 85 H Alkaline Phosphatase 154 H D Total Protein 7.0 Albumin 3.1 L Globulin 3.9 H Albumin/Globulin Ratio 0.8 L Blood Type A Positive Antibody Screen NEGATIVE Crossmatch See Detail Blood Bank Wristband ID Yes ABG Interpretation ABG results: 01/15/25 19:57 VBG pH 7.48 VBG pCO2 27 L VBG pO2 54 VBG Base Excess -2 Quality Measures Quality Measures VTE prophylaxis Assessment & Plan Assessment Current Active Medications: Generic Name Dose Route Start Last Admin Trade Name Freq PRN Reason Stop Dose Admin Acetaminophen 650 mg 01/15/25 18:19 01/24/25 01:44 Acetaminophen 325 Mg Tablet PO 02/14/25 18:18 650 mg Q6H PRN Administration Fever >101.5 Acetaminophen 650 mg 01/15/25 18:19 01/26/25 20:10 Acetaminophen 325 Mg Tablet PO 02/14/25 18:18 650 mg Q6H PRN Administration PAIN SCALE 1-3 (mild Hydrocodone Bitart/Acetaminophen 1 tab 01/24/25 12:05 01/27/25 05:22 Hydrocodone/Apap 5/325 Tablet PO 01/29/25 12:04 1 tab Q6HR PRN Administration pain 4-7 Apixaban 5 mg 01/19/25 09:00 01/25/25 21:26 Apixaban 2.5 Mg Tablet PO 02/18/25 08:59 5 mg BID ADRIANA Administration Calcium Acetate 1,334 mg 01/25/25 17:30 01/27/25 11:33 Calcium Acetate 667 Mg Tablet PO 02/24/25 17:29 1,334 mg TIDWM ADRIANA Administration Dextrose 25 ml 01/15/25 23:44 Dextrose 50%-Water Inj 50 Ml Syringe IV 02/14/25 23:43 Q15MIN PRN BG 50-70 responsive npo pt Dextrose 50 ml 01/15/25 23:44 Dextrose 50%-Water Inj 50 Ml Syringe IV 02/14/25 23:43 Q15MIN PRN BG <50 OR BG <70 & pt unresponsive Glucagon 1 mg 01/15/25 23:44 Glucagon Inj 1 Mg Vial IM Q15MIN PRN BG <70, and no IV access Heparin Sodium (Porcine) 3,300 unit 01/15/25 16:07 01/24/25 11:44 Heparin Sod Inj 1000 Unit/Ml Vial 10 Ml INDWELLCAT 01/29/25 16:06 3,300 unit PRN PRN Administration DIALYSIS Hydromorphone HCl 0.25 mg 01/23/25 15:24 Hydromorphone Inj 2 Mg/Ml Vial IVP 01/28/25 15:23 X1 PRN MRI Piperacillin Sod/Tazobactam 100 mls @ 25 mls/hr 01/23/25 11:15 01/27/25 08:50 Sod 4.5 gm/ Sodium Chloride IV 01/30/25 11:14 25 mls/hr Q12HR ADRIANA Administration Insulin Human Lispro 0 unit 01/16/25 07:30 01/27/25 11:34 Insulin Lispro (Admelog) 1 Unit/0.01 Ml Unit SC 02/15/25 07:29 2 unit AC ADRIANA Administration Protocol Metoprolol Succinate 25 mg 01/17/25 09:00 01/27/25 08:51 Metoprolol Succinate Xl 25 Mg Tabcr PO 02/16/25 08:59 Not Given QDAY ADRIANA Ondansetron HCl 4 mg 01/15/25 18:19 Ondansetron Inj 2 Mg/Ml Inj 2 Ml IVP 02/14/25 18:18 Q6H PRN NAUSEA OR VOMITING Protocol Pantoprazole Sodium 40 mg 01/26/25 09:00 01/27/25 08:50 Pantoprazole Inj 40 Mg Vial IVP 02/25/25 08:59 40 mg BID ADRIANA Administration Sennosides 1 tab 01/23/25 21:12 Senna Tablet PO 02/22/25 21:11 QDAY PRN CONSTIPATION Protocol Sucralfate 1 gm 01/25/25 18:00 01/27/25 11:34 Sucralfate Susp 1 Gm/10 Ml Udc PO 02/24/25 17:59 1 gm QID ADRIANA Administration Vitamin B Complex/Vit C/Folic Acid 1 tab 01/16/25 09:00 01/27/25 08:49 Vit B12/Vit C/Fa (Nephrovite) Tablet PO 02/15/25 08:59 1 tab QDAY ADRIANA Administration Plan #Acute Encephalopathy, resolved Patient on HD, missed several HD appointments last week 2/2 fall with head strike. Initial presentation: AMS with agitation, unable to perform physical exam 2/2 pain upon light touch to extremities Mental status initially improved then worsened No hx of IVDU, supplements per son CT head w/o, CTA head/neck, MRI negative for acute hemorrhage, mass effect, midline shift, LVO, acute infarct. CTA head/neck showed 60% stenosis intracranial left vertebral artery.50% stenosis, on the right 60% stenosis on the left Carotid doppler: Right internal carotid artery demonstrates 10-30% stenosis.Left internal carotid artery demonstrates 0-10% stenosis.No right vertebral artery flow is depicted Rhabdomyolysis r/o given CK WNL B12 high 1497, folate WNL, TSH and T4 WNL CSF: turbid, bloody, WBC 38566, RBC >320K, monocytes 95, polynucleocyte 5, glucse high 125, protein high >2500. Gram stain negative. Most likely traumatic tap with reactive pleocytosis. Patient anticoagulated. CSF culture NGTD Cocci IgM/IgG, HIV, Hep A/B/C negative Blood cultures 01/15 and 01/16: GNR, Enterobacter --> Staph epidermidis x1, NGTD on other preliminary reports Cocci IgM/IgG negative DDX: toxic/metabolic (ESRD on HD, missed HD sessions / uremia, hyperphosphatemia), infectious (HSV, viral encephalitis, bacteremia, infective endocarditis, TB, fungal infection), inflammatory, neoplastic. Possibly compounded by delirium as patient's exam fluctuates throughout day. Plan - Pending CSF viral panel (VDRL, HSV, WNV) - Pending HSV PCR - Pending blood cultures - Given patient's fluctuations on exam throughout day with vast improvement upon evening exam, no need to repeat LP with IR or MRI brain with contrast. - Will encourage him to participate with the physical therapy when appropriate - Delirium precautions #Paroxysmal A-fib, rate controlled Plan: - Management per primary team - Eliquis 5 mg BID #Hyperlipidemia Triglycerides high 310 HDL low 5 Plan: - Continue high intensity statin #Hyperparathyroidism #Hyperphosphatemia - improving PTH 194.9 Phos 9 --> 5.5 Plan: - Management per primary team - Phoslo #ESRD on HD M/W/ Plan: - Management per primary team #Diabetes mellitus type 2 Hgb A1C 6.1 (down from 6.9) Plan: - Management per primary team - SSI #Transaminitis, downtrending Abdominal US: negative for ascites CT abdomen/pelvis: Cirrhosis versus primary hepatocellular disease. Cholelithiasis. 32 mm anterior right renal mass. No abdominal or pelvic abscess Abdominal MRI w/o: Recommend MRCP follow-up to exclude small stones in the distal common bile duct. Cholelithiasis. 36 mm cyst anterior margin right kidney, no solid renal mass lesion noted Ammonia <10, Total bilirubin elevated Plan: - Management per primary team # Esophagitis ulcers # Hiatal hernia # Hemorrhagic gastritis and duodenitis # GERD Per EGD Plan: - Management per primary team and GI?continue pantoprazole, hold anticoagulation due to hemorrhagic gastritis # Normocytic anemia Most likely secondary to blood loss secondary to hemorrhage gastritis Hemoglobin this a.m. 6.3 --> transfused 1 unit PRBC --> repeat hemoglobin 6.8 Plan: - Management per primary team #Renal mass Incidental finding on MRI w/o Plan: - Management per primary team - Pending MRI w/ contrast abdomen #Neck pain #Sciatica MRI C spine: C4-C5 4 mm central osteophyte disc complex. C5-C6 5 mm central subarticular also by disc complex with advanced bilateral neural foraminal stenosis. C6-C7 advanced left neural foraminal stenosis. Abnormal heterogeneous signal throughout all visualized cervical vertebral bodies MRI T spine: No thoracic fracture. Mild diffuse thoracic disc narrowing Heterogeneous marrow signal involving thoracic vertebral bodies MRI L spine: Abnormal marrow signal. L5-S1 4 mm central lumbar disc bulge extending to the foraminal regions with mild bilateral L5 ganglionic compression +straight leg raise test b/l Plan: - MRI L spine w/ contrast if ok with nephrology - Will consider doing EMG nerve conduction study of both lower extremities as an outpatient to evaluate for lumbosacral radiculopathy/neuropathy Plan discussed with Dr. Abdiaziz Cruz, PGY1 Attending Provider Attestation/Addendum I independently reviewed the patient and agree with resident's findings, assessment and plan of care. Continue with physical therapy encouraged him to participate to improve. Neurologically stable and will sign off.
--- NOTE | 2025-01-27 13:40 | ESPR_ITS ---
<Statement entered by Virgilio Crandall MD - 01/27/25 17:26> I have reviewed the note and agree with the resident's assessment & plan with exceptions as below. I have personally reviewed labs, imaging, home meds/prior records, examined the patient, formulated and discussed management plan with the IM team. Pt continues to improve, however continues to reject MRCP. Will follow up with GI if pt needs urgent transfer for evaluation of ERCP, liver enzymes, ALP and T bili all improving. Pt may ultimately need to get MRCP outpatient and will require additional medicines to allow patient to tolerate MRCP Virgilio Crandall, PGY-2 Internal Medicine Documentation for date of: 01/27/25 Subjective Subjective Interval history: Patient examined at bedside today. No acute overnight events. Patient mentions slept well at night and had lunch today. No complaints of chest pain, shortness of breath, abdominal pain, nausea, vomiting. Exam Vital Signs Temp Pulse Resp BP Pulse Ox O2 Del Method O2 Flow Rate 96.8 F 79 18 103/63 96 Nasal Cannula 2 01/27/25 12:43 01/27/25 13:30 01/27/25 12:43 01/27/25 13:30 01/27/25 12:43 01/27/25 04:00 01/27/25 12:43 Narrative Exam General: AAOx3, NAD, weak appearing male HEENT: Moist mucous membranes, conjunctiva clear, EOMI, PERRLA, Cardiovascular: S1, S2, radial pulses +2 bilat, RRR Pulmonary: CTAB bilat no cough, no wheezing GI: No tenderness, no rebound tenderness, moderately distended abdomen Extremities: No presence of trace or pitting edema in lower extremities bilaterally, dorsalis pedis pulses +2 bilaterally Neuro: AAOx3, limited neurologic exam Psych: Good judgement, thought and behavior Objective Labs 01/27/25 14:45 01/27/25 05:20 Labs: Laboratory Results - last 24 hr 01/26/25 01/26/25 01/27/25 08:12 18:26 05:20 WBC 15.7 H RBC 2.45 L Hgb 7.7 L 7.3 L Hct 23.3 L 21.2 L* MCV 87 MCH 29.8 MCHC 34.4 RDW Std Deviation 56.8 H Plt Count 210 Neut % (Auto) 78 Lymph % (Auto) 9 L [place] % (Auto) 10 Eos % (Auto) 2 Baso % (Auto) 0 Neut # (Auto) 12.3 H Lymph # (Auto) 1.4 [place] # (Auto) 1.5 H Eos # (Auto) 0.3 Baso # (Auto) 0.1 Immature Gran # (Auto) 0.17 H Absolute Nucleated RBC 0.00 Immature Gran % 1 H Nucleated RBC % 0 Sodium 136 Potassium 4.9 Chloride 96 L Carbon Dioxide 20.8 Anion Gap 19 H BUN 92 H Creatinine 8.5 H* D Estim Creat Clear Calc 8.1 L eGFR 7 L* BUN/Creatinine Ratio 11 L Glucose 195 H Calculated Osmolality 305 H Calcium 10.0 Corrected Calcium 10.7 H Phosphorus 6.7 H Magnesium 2.1 Total Bilirubin 2.2 H D AST 28 ALT 85 H Alkaline Phosphatase 154 H D Total Protein 7.0 Albumin 3.1 L Globulin 3.9 H Albumin/Globulin Ratio 0.8 L Crossmatch See Detail ABG Interpretation ABG results: 01/15/25 19:57 VBG pH 7.48 VBG pCO2 27 L VBG pO2 54 VBG Base Excess -2 Quality Measures Quality Measures VTE prophylaxis Assessment & Plan Assessment Current Active Medications: Generic Name Dose Route Start Last Admin Trade Name Freq PRN Reason Stop Dose Admin Acetaminophen 650 mg 01/15/25 18:19 01/24/25 01:44 Acetaminophen 325 Mg Tablet PO 02/14/25 18:18 650 mg Q6H PRN Administration Fever >101.5 Acetaminophen 650 mg 01/15/25 18:19 01/26/25 20:10 Acetaminophen 325 Mg Tablet PO 02/14/25 18:18 650 mg Q6H PRN Administration PAIN SCALE 1-3 (mild Hydrocodone Bitart/Acetaminophen 1 tab 01/24/25 12:05 01/27/25 13:08 Hydrocodone/Apap 5/325 Tablet PO 01/29/25 12:04 1 tab Q6HR PRN Administration pain 4-7 Apixaban 5 mg 01/19/25 09:00 01/25/25 21:26 Apixaban 2.5 Mg Tablet PO 02/18/25 08:59 5 mg BID ADRIANA Administration Calcium Acetate 1,334 mg 01/25/25 17:30 01/27/25 11:33 Calcium Acetate 667 Mg Tablet PO 02/24/25 17:29 1,334 mg TIDWM ADRIANA Administration Dextrose 25 ml 01/15/25 23:44 Dextrose 50%-Water Inj 50 Ml Syringe IV 02/14/25 23:43 Q15MIN PRN BG 50-70 responsive npo pt Dextrose 50 ml 01/15/25 23:44 Dextrose 50%-Water Inj 50 Ml Syringe IV 02/14/25 23:43 Q15MIN PRN BG <50 OR BG <70 & pt unresponsive Glucagon 1 mg 01/15/25 23:44 Glucagon Inj 1 Mg Vial IM Q15MIN PRN BG <70, and no IV access Heparin Sodium (Porcine) 3,300 unit 01/15/25 16:07 01/24/25 11:44 Heparin Sod Inj 1000 Unit/Ml Vial 10 Ml INDWELLCAT 01/29/25 16:06 3,300 unit PRN PRN Administration DIALYSIS Hydromorphone HCl 0.25 mg 01/23/25 15:24 Hydromorphone Inj 2 Mg/Ml Vial IVP 01/28/25 15:23 X1 PRN MRI Piperacillin Sod/Tazobactam 100 mls @ 25 mls/hr 01/23/25 11:15 01/27/25 08:50 Sod 4.5 gm/ Sodium Chloride IV 01/30/25 11:14 25 mls/hr Q12HR ADRIANA Administration Insulin Human Lispro 0 unit 01/16/25 07:30 01/27/25 11:34 Insulin Lispro (Admelog) 1 Unit/0.01 Ml Unit SC 02/15/25 07:29 2 unit AC ADRIANA Administration Protocol Metoprolol Succinate 25 mg 01/17/25 09:00 01/27/25 08:51 Metoprolol Succinate Xl 25 Mg Tabcr PO 02/16/25 08:59 Not Given QDAY ADRIANA Ondansetron HCl 4 mg 01/15/25 18:19 Ondansetron Inj 2 Mg/Ml Inj 2 Ml IVP 02/14/25 18:18 Q6H PRN NAUSEA OR VOMITING Protocol Pantoprazole Sodium 40 mg 01/26/25 09:00 01/27/25 08:50 Pantoprazole Inj 40 Mg Vial IVP 02/25/25 08:59 40 mg BID ADRIANA Administration Sennosides 1 tab 01/23/25 21:12 Senna Tablet PO 02/22/25 21:11 QDAY PRN CONSTIPATION Protocol Sucralfate 1 gm 01/25/25 18:00 01/27/25 11:34 Sucralfate Susp 1 Gm/10 Ml Udc PO 02/24/25 17:59 1 gm QID ADRIANA Administration Vitamin B Complex/Vit C/Folic Acid 1 tab 01/16/25 09:00 01/27/25 08:49 Vit B12/Vit C/Fa (Nephrovite) Tablet PO 02/15/25 08:59 1 tab QDAY ADRIANA Administration Plan Assessment 59 year old male with history of hypertension, diabetes, hyperlipidemia, ESRD admitted for acute encepahlopathy. #Transaminitis #Secondary to CBD stone #?Cholangitis CT abdomen showed Liver mildly irregular in contour. Hepatomegaly 19 cm. Splenomegaly 14 cm. Cholelithiasis. Gallbladder wall appears mildly thickened. T bili 2.2, worsening AST and ALT ( 344 and 250 respectively), 261 ALP Concern for stones in CBD MRI abdomen recommends MRCP as there was some possible 2 mm and adjacent 2 mm stones in the distal common bile duct 01/25/[address] Hirsch today, who plans to do colonoscopy today due to downtrending hemoglobin. Today's hemoglobin was 7.5 (7.8). Patient declined MRCP yesterday despite offering pain medications. Dr. Hirsch agrees patient could likely have cholangitis and requires ERCP. We will be looking to transfer this patient soon for ERCP. 01/27/2025 Patient again declined MRCP despite offering pain medications. Patient was explained the pros and cons of the procedure, despite this the patient declined. Given this Dr. Hirsch does not think the patient would be fit for ERCP. At this time we are monitoring the transaminases to check for improvement Plan: ? Dr. Hirsch following ? Trend transaminases #Upper GI bleed #Diffuse hemorrhagic gastritis #Diffuse duodenitis EGD showed oozing of blood Anemia likely secondary to blood loss Hemoglobin today 7.3, repeating H&H this afternoon and if hemoglobin less than 7 we will transfuse packed RBC today Plan ? Holding Eliquis ? Started on pantoprazole 40 mg twice daily ? Patient was transfused 1 unit of packed RBC ? Follow hemoglobin and hematocrit ? Dr. Hirsch following #Enterobacter cloacae bacteremia - ongoing treatment #Enterobacter cloacae UTI CSF: turbid, bloody, WBC 14102, RBC >320K, monocytes 95, polynucleocyte 5, glucse high 125, protein high >2500. Gram stain negative. Most likely traumatic tap with reactive pleocytosis. Patient anticoagulated. White blood cell today 23.0 Blood culture (+) x2 sources on 01/15/25 - Enterobacter cloacae UA: WBC 217, Leuk (+) on 01/15/25 Urine Cx 01/15/25 - Enterobacter cloacae Blood cultures 01/18/25 - negative Blood cultures 01/19/2025 gram-positive cocci positive but the other tube showed no growth?so likely contaminant Patient not on steroids Plan: - Neurology following - LP performed on 01/20/2025 follow-up on results - Zosyn IV renally dosed ? Consider stepping down from Zosyn within the next 24 to 48 hours #Paroxysmal A-fib, rate controlled [id number]: 4 HAS-BLED:3 Plan: - Eliquis 5 mg BID ? currently on an hold due to upper GI bleed - Keep Mag > 2 and K > 4 - Telemetry - Home Metoprolol XL 25 mg qday #HAGMA #Lactic Acidosis Lactic acid 2.6, AG 17 Likely related to Lactate HCO3- 24.5?abnormally normal #Hyperparathyroidism #2/2 to ESRD PTH - 194.9 Ca 10.7, Phos 6.7 Plan: - Calcium acetate changed to 1334 mg 3 times daily - Nephrology following and will adjust accordingly #Renal cyst - bilateral #Renal mass ruled out CT abdomen pelvis wo con Hepatosplenomegaly. Trace ascites. Tiny bilateral renal calculi. Recommend renal sonography follow-up to exclude 32 mm anterior right renal mass. Urinary bladder wall thickening, differential would include cystitis Renal US - ruled renal mass. Bilateral renal cortical thinning. Mild to moderate bilateral renal parenchymal scar formation. 5 mm left renal calculus Abdominal MRI shows 35 mm cyst #Insulin Independent Type II Diabetes mellitus type 2 Hgb A1C 6.1 (down from 6.9). Well controlled. Patient is not on diabetic meds at home, mentions diet-controlled. Glucose 195 in AM - patient does have bacteremia Plan: ? Sliding scale insulin ? Hypoglycemic protocol in place ? Blood sugar checks with meals #Hyperlipidemia LDL 83 - Continue home Atorvastatin 80mg daily #Acute Encephalopathy -resolved #CVA - ruled out #Generalized weakness #Myalgias DDX: toxic/metabolic (ESRD on HD, missed HD sessions), infectious (UTI), hypertensive encephalopathy (sBPs reach 190s), structural/seizures, other: constipation, urinary retention In the ED, BUN was 122, Cr was 13.8, and eGFR was 4. Patient missed several HD appts. Teleneuro assessed patient and noted NIHSS score of 18. CT head w/o 01/15/25: Negative for acute hemorrhage, mass effect or midline shift CTA head/neck 01/15/25: No significant neck arterial stenoses. No critical vertebral artery stenoses in the neck. 60% stenosis intracranial left vertebral artery. Attenuated basilar artery which does fill with no large vessel occlusions involving the basilar artery or posterior cerebral branches. Heavy calcification juxtasellar portions internal carotid arteries, 50% stenosis on the right 60% stenosis on the left. No middle cerebral or anterior cerebral artery large vessel occlusions CXR: Moderate vascular congestion WBC elevated, UA + UTI, serum ammonia WNL, TSH WNL Carotid dopper (01/16/25): Right internal carotid artery demonstrates 10-30% stenosis. Left internal carotid artery demonstrates 0-10% stenosis. No right vertebral artery flow is depicted Brain MRI with MRA negative (01/16/25). Negative for acute hemorrhage mass effect or midline shift. No acute infarct Echo 01/17/2025: Left ventricle dimensions normal with evidence of severe left ventricle hypertrophy asymmetric septal hypertrophy with septal thickness of 20 mm with normal left ventricle function ejection fraction of 60%. Grade 1 diastolic dysfunction is present. The RV is normal in size and systolic function. Aortic Valve sclerosis calcification with evidence of mild aortic stenosis gradient of peak velocity 1.7 m/s Mitral annulus calcification with evidence of mild mitral regurgitation. #Health Maintenance Disposition: Telemetry DVT prophylaxis: Holding Eliquis GI prophylaxis: Protonix 40 mg twice daily Diet: Renal CODE STATUS: DNR Case discussed with my attending Dr. Judith Romero MD PGY-1 Attending Provider Attestation/Addendum I have examined the patient, reviewed labs and imaging findings, discussed the case with the resident(s), and reviewed entered orders. I agree with the plan of care as outlined in this note, with these additional summaries/recommendations: Patient & family seen at bedside. No acute overnight events. Discussed with patient that he will finally go for MRCP today although he is refusing secondary to anxiety from being in MRI machine. Discussed that we can give him medicine prior although he still refuses. Risks and benefits explained and he showed understanding. Discussed with gastroenterology and given that patient is currently refusing, has down trending LFTs, and no abdominal complaints at this time that he can likely follow-up outpatient as desired. If LFTs worsen or or patient develops abdominal pain we will revisit MRCP. Patient is status post EGD that revealed diffuse hemorrhagic gastritis and diffuse duodenitis with the entire esophagus ulcerated. Continue PPI twice daily and carfate. Avoid NSAIDs, steroids, alcohol, chocolate, and anticoagulation. Patient has already received 1U PRBCs for acute blood loss anemia during hospitalization. Unfortunately, hemoglobin continues to down-trend and is 7.3 on morning hematology panel. We will order H & H for this evening and transfuse for hemoglobin for less than 7. Patient appears at baseline mental status but does appear tired. He is alert and oriented x 3. He currently denies abdominal pain. Patient has had increasing transaminitis with hyperbilirubinemia and elevated alkaline phosphatase during hospitalization which is now resolving. Patient underwent abdominal MRI for renal mass which returned showing 36 mm cyst anterior margin of right kidney with no solid renal mass noted. MRI did note findings suspicious for common bile duct stone and recommended MRCP which we have not been able to complete thus far. Avoid hepatotoxic agents and hepatically dose medications. Continue IV Zosyn and can likely deescalate in next 24-48 hours. Patient was also noted to have Enterobacter bacteremia and urinary tract infection on admission and receiving IV antibiotic. Patient's atrial fibrillation remains well-controlled. Hold anticoagulation for now. Nephrology following for end-stage renal disease. Continue insulin sliding scale for diabetes mellitus type 2. Please see residents note for additional details and management. Dr. Judith MD
[2025-01-27 15:04] LABS: Hematocrit 23.9 % (41.0-53.0)
[2025-01-27 15:06] LABS: Hemoglobin 8.2 g/dL (13.5-16.0)
[2025-01-27] MEDS: HEPARIN SOD INJ 1000 UNIT/ML VIAL 10 ML 3300 UNIT INDWELLCAT (15:53)
--- NOTE | 2025-01-27 21:52 | PD.IMPROG ---
Documentation for date of: 01/27/25 Subjective Subjective Interval history: Downtrending LFTs Patient refused MRCP total bilirubin 2.2 AST ALT 28 and 85 and alk phos 154 Exam Vital Signs Temp Pulse Resp BP Pulse Ox O2 Del Method O2 Flow Rate 97.5 F 80 15 127/68 97 Nasal Cannula 2 01/27/25 20:00 01/27/25 20:00 01/27/25 20:00 01/27/25 20:00 01/27/25 20:00 01/27/25 20:00 01/27/25 16:00 Objective Labs 01/27/25 14:45 01/27/25 05:20 Labs: Laboratory Results - last 24 hr 01/27/25 01/27/25 05:20 14:45 WBC 15.7 H RBC 2.45 L Hgb 7.3 L 8.2 L Hct 21.2 L* 23.9 L MCV 87 MCH 29.8 MCHC 34.4 RDW Std Deviation 56.8 H Plt Count 210 Neut % (Auto) 78 Lymph % (Auto) 9 L [place] % (Auto) 10 Eos % (Auto) 2 Baso % (Auto) 0 Neut # (Auto) 12.3 H Lymph # (Auto) 1.4 [place] # (Auto) 1.5 H Eos # (Auto) 0.3 Baso # (Auto) 0.1 Immature Gran # (Auto) 0.17 H Absolute Nucleated RBC 0.00 Immature Gran % 1 H Nucleated RBC % 0 Sodium 136 Potassium 4.9 Chloride 96 L Carbon Dioxide 20.8 Anion Gap 19 H BUN 92 H Creatinine 8.5 H* D Estim Creat Clear Calc 8.1 L eGFR 7 L* BUN/Creatinine Ratio 11 L Glucose 195 H Calculated Osmolality 305 H Calcium 10.0 Corrected Calcium 10.7 H Phosphorus 6.7 H Magnesium 2.1 Total Bilirubin 2.2 H D AST 28 ALT 85 H Alkaline Phosphatase 154 H D Total Protein 7.0 Albumin 3.1 L Globulin 3.9 H Albumin/Globulin Ratio 0.8 L Impressions Impression: Esophageal ulceration posthemorrhagic anemia Questionable choledocholithiasis with downtrending LFTs Continue current management ABG Interpretation ABG results: 01/15/25 19:57 VBG pH 7.48 VBG pCO2 27 L VBG pO2 54 VBG Base Excess -2 Assessment & Plan A&P Narrative # Abnormal liver function test most likely secondary to underlying cirrhotic liver disease MR abdomen without contrast shows possibility of a choledocholithiasis with 2 mm stone in the common bile duct LFTs are already improving Would recommend MRCP just to make sure indeed the stone is there He does not need if that is positive and emergent ERCP Which can be done as an outpatient # Abdominal bloating most likely due to stool impaction Would recommend GoLytely flush as there is a lot of stool burden on abdominal x-ray # Cholelithiasis in the setting of cirrhotic liver disease at the moment appears to be asymptomatic Other medical problems include Essential hypertension Diabetes mellitus type 2 End-stage renal disease on hemodialysis MWF Paroxysmal A-fib Time Spent With Patient Time: Total time spent is greater than 50% in coordination of care (as documented) at patient's floor/unit and/or counseling patient:
[2025-01-28] VITALS (15 sets, daily range): BP systolic 95–137; BP diastolic 52–73; PULSE 61–77; RESP 13–99; TEMP 35.9–36.6; O2SAT 91–100
[2025-01-28] MEDS: SUCRALFATE SUSP 1 GM/10 ML UDC PO ×4 (05:38→20:17)
[2025-01-28 06:19] LABS: Alanine Aminotransferase 62 U/L (10-49); Albumin, Serum 3.0 gm/dL (3.5-5.0); Albumin/Globulin Ratio 0.8 (1.2-2.2); Alkaline Phosphatase 134 U/L (46-116); Anion Gap 13 (7-16); Aspartate Amino Transferase 20 U/L (0-34); BUN/Creatinine Ratio 9 Ratio (12-20); Bilirubin,Total 2.0 mg/dL (0.3-1.2); Blood Urea Nitrogen 50 mg/dL (9-23); Calcium 9.6 mg/dL (8.3-10.6); Calcium (Corrected) 10.4 mg/dL (8.5-10.1); Carbon Dioxide 25.8 mMol/L (20.0-31.0); Chloride 98 mMol/L (98-107); Creatinine (Component) 5.7 mg/dL (0.6-1.3); Estimated Creatinine Clearance 12.4 mL/min (>60); Globulin 3.9 gm/dL (2.3-3.5); Glucose 151 mg/dL (74-106); Magnesium 1.9 mg/dL (1.6-2.6); Osmolality,Calculated 290 (275-295); Phosphorous 6.0 mg/dL (2.4-5.1); Potassium 4.7 mMol/L (3.4-5.1); Sodium 137 mMol/L (136-145); Total Protein 6.9 gm/dL (5.7-8.2); eGFR 11 See Note
[2025-01-28 06:24] LABS: Basophils # (Auto) 0.0 Thou/mm3 (0.0-0.2); Basophils % (Auto) 0 % (0-2.5); Eosinophils # (Auto) 0.3 Thou/mm3 (0.0-0.5); Eosinophils % (Auto) 2 % (0-10); Hematocrit 21.1 % (41.0-53.0); Immature Granulocytes Auto 0.12 Thou/mm3 (0.00-0.00); Lymphocytes # (Auto) 1.1 Thou/mm3 (1.0-4.8); Lymphocytes % (Auto) 9 % (10-50); Mean Corpuscular HGB Conc 33.6 g/dl (31.0-37.0); Mean Corpuscular Hemoglobin 29.5 pg (25.0-35.0); Mean Corpuscular Volume 88 fL (80-100); Monocytes # (Auto) 1.1 Thou/mm3 (0.0-0.8); Monocytes % (Auto) 9 % (0-12); Neutrophils # (Auto) 9.3 Thou/mm3 (1.8-7.7); Neutrophils % (Auto) 78 % (37-80); Nucleated Red Blood Cell # 0.00 Thou/mm3 (0.00-0.00); Nucleated Red Blood Cell % 0 /100 WBC (0); Platelet Count 201 Thou/mm3 (140-440); RDW Standard Deviation 55.7 fL (35.1-43.9); Red Blood Count 2.41 Miln/mm3 (4.50-5.90); White Blood Count 11.9 Thou/mm3 (3.8-10.6)
[2025-01-28 06:58] LABS: Hemoglobin 7.1 g/dL (13.5-16.0)
--- NOTE | 2025-01-28 07:17 | ESPR_ITS ---
<Statement entered by Virgilio Crandall MD - 01/28/25 20:02> I have reviewed the note and agree with the resident's assessment & plan with exceptions as below. I have personally reviewed labs, imaging, home meds/prior records, examined the patient, formulated and discussed management plan with the IM team. Patient continues to improve from a mentation standpoint. Neurology has signed off. As patient continues to refuse MRCP, we will have to pursue a HIDA scan at this point. Spoke with GI, Dr. Vasquez, who recommends transfer patient if patient needs MRCP. Will touch base with GI, Dr. Hirsch, after HIDA scan results. N.p.o. at midnight, repeat chemistry, electrolytes and hematology in the a.m. Virgilio Crandall, PGY-2 Internal Medicine Documentation for date of: 01/28/25 Subjective Subjective Interval history: Patient examined at bedside today. No acute overnight events. Patient mentions slept well at night and had lunch today. No complaints of chest pain, shortness of breath, abdominal pain, nausea, vomiting. Exam Vital Signs Temp Pulse Resp BP Pulse Ox O2 Del Method O2 Flow Rate 97.0 F 65 14 95/58 L 97 Nasal Cannula 1 01/28/25 04:00 01/28/25 04:00 01/28/25 04:00 01/28/25 04:00 01/28/25 04:00 01/28/25 04:00 01/28/25 02:38 Narrative Exam General: AAOx3, NAD, weak appearing male HEENT: Moist mucous membranes, conjunctiva clear, EOMI, PERRLA, Cardiovascular: S1, S2, radial pulses +2 bilat, RRR Pulmonary: CTAB bilat no cough, no wheezing GI: No tenderness, no rebound tenderness, moderately distended abdomen Extremities: No presence of trace or pitting edema in lower extremities bilaterally, dorsalis pedis pulses +2 bilaterally Neuro: AAOx3, limited neurologic exam Psych: Good judgement, thought and behavio Objective Labs 01/29/25 04:50 01/29/25 04:50 Labs: Laboratory Results - last 24 hr 01/27/25 01/28/25 14:45 05:30 WBC 11.9 H RBC 2.41 L Hgb 8.2 L 7.1 L Hct 23.9 L 21.1 L* MCV 88 MCH 29.5 MCHC 33.6 RDW Std Deviation 55.7 H Plt Count 201 Neut % (Auto) 78 Lymph % (Auto) 9 L [place] % (Auto) 9 Eos % (Auto) 2 Baso % (Auto) 0 Neut # (Auto) 9.3 H Lymph # (Auto) 1.1 [place] # (Auto) 1.1 H Eos # (Auto) 0.3 Baso # (Auto) 0.0 Immature Gran # (Auto) 0.12 H Absolute Nucleated RBC 0.00 Immature Gran % 1 H Nucleated RBC % 0 Sodium 137 Potassium 4.7 Chloride 98 Carbon Dioxide 25.8 Anion Gap 13 BUN 50 H Creatinine 5.7 H* D Estim Creat Clear Calc 12.4 L eGFR 11 L* BUN/Creatinine Ratio 9 L Glucose 151 H Calculated Osmolality 290 Calcium 9.6 Corrected Calcium 10.4 H Phosphorus 6.0 H Magnesium 1.9 Total Bilirubin 2.0 H AST 20 ALT 62 H Alkaline Phosphatase 134 H D Total Protein 6.9 Albumin 3.0 L Globulin 3.9 H Albumin/Globulin Ratio 0.8 L ABG Interpretation ABG results: 01/15/25 19:57 VBG pH 7.48 VBG pCO2 27 L VBG pO2 54 VBG Base Excess -2 Quality Measures Quality Measures VTE prophylaxis Assessment & Plan Assessment Current Active Medications: Generic Name Dose Route Start Last Admin Trade Name Chilangoq PRN Reason Stop Dose Admin Acetaminophen 650 mg 01/15/25 18:19 01/24/25 01:44 Acetaminophen 325 Mg Tablet PO 02/14/25 18:18 650 mg Q6H PRN Administration Fever >101.5 Acetaminophen 650 mg 01/15/25 18:19 01/26/25 20:10 Acetaminophen 325 Mg Tablet PO 02/14/25 18:18 650 mg Q6H PRN Administration PAIN SCALE 1-3 (mild Hydrocodone Bitart/Acetaminophen 1 tab 01/24/25 12:05 01/27/25 22:02 Hydrocodone/Apap 5/325 Tablet PO 01/29/25 12:04 1 tab Q6HR PRN Administration pain 4-7 Apixaban 5 mg 01/19/25 09:00 01/25/25 21:26 Apixaban 2.5 Mg Tablet PO 02/18/25 08:59 5 mg BID ADRIANA Administration Calcium Acetate 1,334 mg 01/25/25 17:30 01/27/25 16:32 Calcium Acetate 667 Mg Tablet PO 02/24/25 17:29 1,334 mg TIDWM ADRIANA Administration Dextrose 25 ml 01/15/25 23:44 Dextrose 50%-Water Inj 50 Ml Syringe IV 02/14/25 23:43 Q15MIN PRN BG 50-70 responsive npo pt Dextrose 50 ml 01/15/25 23:44 Dextrose 50%-Water Inj 50 Ml Syringe IV 02/14/25 23:43 Q15MIN PRN BG <50 OR BG <70 & pt unresponsive Glucagon 1 mg 01/15/25 23:44 Glucagon Inj 1 Mg Vial IM Q15MIN PRN BG <70, and no IV access Heparin Sodium (Porcine) 3,300 unit 01/15/25 16:07 01/27/25 15:53 Heparin Sod Inj 1000 Unit/Ml Vial 10 Ml INDWELLCAT 01/29/25 16:06 3,300 unit PRN PRN Administration DIALYSIS Hydromorphone HCl 0.25 mg 01/23/25 15:24 Hydromorphone Inj 2 Mg/Ml Vial IVP 01/28/25 15:23 X1 PRN MRI Piperacillin Sod/Tazobactam 100 mls @ 25 mls/hr 01/23/25 11:15 01/28/25 01:00 Sod 4.5 gm/ Sodium Chloride IV 01/30/25 11:14 Infused Q12HR ADRIANA Infusion Insulin Human Lispro 0 unit 01/16/25 07:30 01/27/25 16:27 Insulin Lispro (Admelog) 1 Unit/0.01 Ml Unit SC 02/15/25 07:29 Not Given AC ADRIANA Protocol Metoprolol Succinate 25 mg 01/17/25 09:00 01/27/25 08:51 Metoprolol Succinate Xl 25 Mg Tabcr PO 02/16/25 08:59 Not Given QDAY ADRIANA Ondansetron HCl 4 mg 01/15/25 18:19 Ondansetron Inj 2 Mg/Ml Inj 2 Ml IVP 02/14/25 18:18 Q6H PRN NAUSEA OR VOMITING Protocol Pantoprazole Sodium 40 mg 01/26/25 09:00 01/27/25 20:26 Pantoprazole Inj 40 Mg Vial IVP 02/25/25 08:59 40 mg BID ADRIANA Administration Sennosides 1 tab 01/23/25 21:12 Senna Tablet PO 02/22/25 21:11 QDAY PRN CONSTIPATION Protocol Sucralfate 1 gm 01/25/25 18:00 01/28/25 05:38 Sucralfate Susp 1 Gm/10 Ml Udc PO 02/24/25 17:59 1 gm QID ADRIANA Administration Vitamin B Complex/Vit C/Folic Acid 1 tab 01/16/25 09:00 01/27/25 08:49 Vit B12/Vit C/Fa (Nephrovite) Tablet PO 02/15/25 08:59 1 tab QDAY ADRIANA Administration Plan Assessment 59 year old male with history of hypertension, diabetes, hyperlipidemia, ESRD admitted for acute encepahlopathy. #Transaminitis #Secondary to CBD stone #?Cholangitis CT abdomen showed Liver mildly irregular in contour. Hepatomegaly 19 cm. Splenomegaly 14 cm. Cholelithiasis. Gallbladder wall appears mildly thickened. T bili 2.2, worsening AST and ALT ( 344 and 250 respectively), 261 ALP Concern for stones in CBD MRI abdomen recommends MRCP as there was some possible 2 mm and adjacent 2 mm stones in the distal common bile duct 01/27/2025 Patient again declined MRCP despite offering pain medications. Patient was explained the pros and cons of the procedure, despite this the patient declined. Given this Dr. Hirsch does not think the patient would be fit for ERCP. At this time we are monitoring the transaminases to check for improvement 01/28/2025 Since patient does not want MRCP, new plan is to get HIDA scan to rule out cholangitis. Scheduled for tomorrow. If negative, patient to be discharged thereafter. Plan: ? N.p.o. from midnight ? HIDA scan tomorrow ? Dr. Hirsch following ? Trend transaminases?downtrending #Upper GI bleed #Diffuse hemorrhagic gastritis #Diffuse duodenitis EGD showed oozing of blood Anemia likely secondary to blood loss Hemoglobin today 7.1, and patient was transfused 1u of packed RBC today Plan ? Holding Eliquis ? Started on pantoprazole 40 mg twice daily ? Patient was transfused 1 unit of packed RBC ? Follow hemoglobin and hematocrit ? Dr. Hirsch following #Enterobacter cloacae bacteremia - ongoing treatment #Enterobacter cloacae UTI CSF: turbid, bloody, WBC 86522, RBC >320K, monocytes 95, polynucleocyte 5, glucse high 125, protein high >2500. Gram stain negative. Most likely traumatic tap with reactive pleocytosis. Patient anticoagulated. White blood cell today 23.0 Blood culture (+) x2 sources on 01/15/25 - Enterobacter cloacae UA: WBC 217, Leuk (+) on 01/15/25 Urine Cx 01/15/25 - Enterobacter cloacae Blood cultures 01/18/25 - negative Blood cultures 01/19/2025 gram-positive cocci positive but the other tube showed no growth?so likely contaminant Patient not on steroids Plan: - Neurology following - LP performed on 01/20/2025 follow-up on results - Zosyn IV renally dosed ? Consider stepping down from Zosyn within the next 24 to 48 hours #Paroxysmal A-fib, rate controlled [id number]: 4 HAS-BLED:3 Plan: - Eliquis 5 mg BID ? currently on an hold due to upper GI bleed - Keep Mag > 2 and K > 4 - Telemetry - Home Metoprolol XL 25 mg qday #HAGMA #Lactic Acidosis Lactic acid 2.6, AG 17 Likely related to Lactate HCO3- 24.5?abnormally normal #Hyperparathyroidism #2/2 to ESRD PTH - 194.9 Ca 10.7, Phos 6.7 Plan: - Calcium acetate changed to 1334 mg 3 times daily - Nephrology following and will adjust accordingly #Renal cyst - bilateral #Renal mass ruled out CT abdomen pelvis wo con Hepatosplenomegaly. Trace ascites. Tiny bilateral renal calculi. Recommend renal sonography follow-up to exclude 32 mm anterior right renal mass. Urinary bladder wall thickening, differential would include cystitis Renal US - ruled renal mass. Bilateral renal cortical thinning. Mild to moderate bilateral renal parenchymal scar formation. 5 mm left renal calculus Abdominal MRI shows 35 mm cyst #Insulin Independent Type II Diabetes mellitus type 2 Hgb A1C 6.1 (down from 6.9). Well controlled. Patient is not on diabetic meds at home, mentions diet-controlled. Glucose 195 in AM - patient does have bacteremia Plan: ? Sliding scale insulin ? Hypoglycemic protocol in place ? Blood sugar checks with meals #Hyperlipidemia LDL 83 - Continue home Atorvastatin 80mg daily #Acute Encephalopathy -resolved #CVA - ruled out #Generalized weakness #Myalgias DDX: toxic/metabolic (ESRD on HD, missed HD sessions), infectious (UTI), hypertensive encephalopathy (sBPs reach 190s), structural/seizures, other: constipation, urinary retention In the ED, BUN was 122, Cr was 13.8, and eGFR was 4. Patient missed several HD appts. Teleneuro assessed patient and noted NIHSS score of 18. CT head w/o 01/15/25: Negative for acute hemorrhage, mass effect or midline shift CTA head/neck 01/15/25: No significant neck arterial stenoses. No critical vertebral artery stenoses in the neck. 60% stenosis intracranial left vertebral artery. Attenuated basilar artery which does fill with no large vessel occlusions involving the basilar artery or posterior cerebral branches. Heavy calcification juxtasellar portions internal carotid arteries, 50% stenosis on the right 60% stenosis on the left. No middle cerebral or anterior cerebral artery large vessel occlusions CXR: Moderate vascular congestion WBC elevated, UA + UTI, serum ammonia WNL, TSH WNL Carotid dopper (01/16/25): Right internal carotid artery demonstrates 10-30% stenosis. Left internal carotid artery demonstrates 0-10% stenosis. No right vertebral artery flow is depicted Brain MRI with MRA negative (01/16/25). Negative for acute hemorrhage mass effect or midline shift. No acute infarct Echo 01/17/2025: Left ventricle dimensions normal with evidence of severe left ventricle hypertrophy asymmetric septal hypertrophy with septal thickness of 20 mm with normal left ventricle function ejection fraction of 60%. Grade 1 diastolic dysfunction is present. The RV is normal in size and systolic function. Aortic Valve sclerosis calcification with evidence of mild aortic stenosis gradient of peak velocity 1.7 m/s Mitral annulus calcification with evidence of mild mitral regurgitation. #Health Maintenance Disposition: Telemetry DVT prophylaxis: Holding Eliquis GI prophylaxis: Protonix 40 mg twice daily Diet: Renal CODE STATUS: DNR Case discussed with my attending Dr. Johansen, and senior resident, Dr. Raz Romero MD PGY-1 Attending Provider Attestation/Addendum I, Madeleine Johansen, DO, attest that I was physically present for the raphael portions of the service and evaluated the patient with the resident and I reviewed and discussed the case with the resident and agree with the resident's findings and plans of care as documented above Patient seen and eval this a.m. No acute events overnight. LFTs continue to downtrend. He is able to tolerate diet and denies any nausea or vomiting. Patient does not want to undergo MRCP since he has had several MRIs and states that he gets claustrophobic. Will obtain a HIDA scan to rule out any cystic duct obstruction. Will place patient n.p.o. after midnight. He otherwise has no right upper quadrant pain. He has also been afebrile. Will continue current management.
[2025-01-28] MEDS: CALCIUM ACETATE 667 MG TABLET 1334 MG PO (07:38)
[2025-01-28] MEDS: VIT B12/Vit C/FA (Nephrovite) TABLET 1 TAB PO (08:24)
[2025-01-28] MEDS: METOPROLOL SUCCINATE XL 25 MG TABCR PO (08:25)
[2025-01-28] MEDS: HYDROcodone/APAP 5/325 TABLET 1 TAB PO (08:26)
[2025-01-28] MEDS: PIPER/TAZO INJ 4.5 GM in SODIUM CHLORIDE 0.9% (POP) 100 ML IV ×2 (08:27→20:18)
--- NOTE | 2025-01-28 09:22 | PD.RESPRO ---
Documentation for date of: 01/28/25 Subjective Subjective Interval history: Overnight events: No acute events overnight. Patient was seen and examined at bedside. AM vitals and labs reviewed. WBC 11.9, H&H 7.1/21.1, BUN 50, creatinine 5.7, GFR 11, corrected calcium 10.4, phosphate 6.0. Patient is currently still on pip-tazo for Enterobacter bacteremia. Due to continued rejection of MRCP, GI recommends outpatient ERCP. Monitoring patient if he needs another blood transfusion. During today's visit the patient seemed much more cognitively intact. The patient was able to answer what today's date was, where he was, and why he is in the hospital. Throughout today's conversation, the patient was not falling asleep and was able to recall events overnight. The patient is no longer shivering, but he does seem to have a bilateral upper extremity tremor. Patient has no complaints at this time other than asking for PT in hospital and if PT can visit him outpatient. Review of systems otherwise negative except for what is mentioned above. Exam Vital Signs Temp Pulse Resp BP Pulse Ox O2 Del Method O2 Flow Rate 96.8 F 71 20 124/63 91 L Nasal Cannula 1 01/28/25 08:00 01/28/25 08:58 01/28/25 08:58 01/28/25 08:25 01/28/25 08:00 01/28/25 08:00 01/28/25 08:58 Narrative Exam Physical Exam: General: Alert, no acute distress. Skin: Warm, dry, intact, no obvious rash. Head: Normocephalic, atraumatic. Eye: Icteric conjunctiva, PERRL. Cardiovascular: Regular rate and rhythm, soft systolic murmur, +S1/S2. Respiratory: Lungs are clear to auscultation, respirations unlabored on room air, no crackles, no wheezing. Gastrointestinal: Soft, nontender, distended. No guarding or rebound tenderness. Extremities: No edema, no cyanosis, no clubbing. 2+ radial pulse bilaterally, 2+ pedal pulse bilaterally. Neuro: No focal deficits observed. Conversant, moving all extremities. No overt cerebellar signs/incoordination. Psychiatric: Cooperative, appropriate affect. Objective Labs 01/30/25 04:27 01/30/25 04:27 Labs: Laboratory Results - last 24 hr 01/27/25 01/28/25 14:45 05:30 WBC 11.9 H RBC 2.41 L Hgb 8.2 L 7.1 L Hct 23.9 L 21.1 L* MCV 88 MCH 29.5 MCHC 33.6 RDW Std Deviation 55.7 H Plt Count 201 Neut % (Auto) 78 Lymph % (Auto) 9 L [place] % (Auto) 9 Eos % (Auto) 2 Baso % (Auto) 0 Neut # (Auto) 9.3 H Lymph # (Auto) 1.1 [place] # (Auto) 1.1 H Eos # (Auto) 0.3 Baso # (Auto) 0.0 Immature Gran # (Auto) 0.12 H Absolute Nucleated RBC 0.00 Immature Gran % 1 H Nucleated RBC % 0 Sodium 137 Potassium 4.7 Chloride 98 Carbon Dioxide 25.8 Anion Gap 13 BUN 50 H Creatinine 5.7 H* D Estim Creat Clear Calc 12.4 L eGFR 11 L* BUN/Creatinine Ratio 9 L Glucose 151 H Calculated Osmolality 290 Calcium 9.6 Corrected Calcium 10.4 H Phosphorus 6.0 H Magnesium 1.9 Total Bilirubin 2.0 H AST 20 ALT 62 H Alkaline Phosphatase 134 H D Total Protein 6.9 Albumin 3.0 L Globulin 3.9 H Albumin/Globulin Ratio 0.8 L ABG Interpretation ABG results: 01/15/25 19:57 VBG pH 7.48 VBG pCO2 27 L VBG pO2 54 VBG Base Excess -2 Quality Measures Quality Measures VTE prophylaxis Assessment & Plan Assessment Current Active Medications: Generic Name Dose Route Start Last Admin Trade Name Kasandra PRN Reason Stop Dose Admin Acetaminophen 650 mg 01/15/25 18:19 01/24/25 01:44 Acetaminophen 325 Mg Tablet PO 02/14/25 18:18 650 mg Q6H PRN Administration Fever >101.5 Acetaminophen 650 mg 01/15/25 18:19 01/26/25 20:10 Acetaminophen 325 Mg Tablet PO 02/14/25 18:18 650 mg Q6H PRN Administration PAIN SCALE 1-3 (mild Hydrocodone Bitart/Acetaminophen 1 tab 01/24/25 12:05 01/28/25 08:26 Hydrocodone/Apap 5/325 Tablet PO 01/29/25 12:04 1 tab Q6HR PRN Administration pain 4-7 Apixaban 5 mg 01/19/25 09:00 01/25/25 21:26 Apixaban 2.5 Mg Tablet PO 02/18/25 08:59 5 mg BID ADRIANA Administration Calcium Acetate 1,334 mg 01/25/25 17:30 01/28/25 07:38 Calcium Acetate 667 Mg Tablet PO 02/24/25 17:29 1,334 mg TIDWM ADRIANA Administration Dextrose 25 ml 01/15/25 23:44 Dextrose 50%-Water Inj 50 Ml Syringe IV 02/14/25 23:43 Q15MIN PRN BG 50-70 responsive npo pt Dextrose 50 ml 01/15/25 23:44 Dextrose 50%-Water Inj 50 Ml Syringe IV 02/14/25 23:43 Q15MIN PRN BG <50 OR BG <70 & pt unresponsive Glucagon 1 mg 01/15/25 23:44 Glucagon Inj 1 Mg Vial IM Q15MIN PRN BG <70, and no IV access Heparin Sodium (Porcine) 3,300 unit 01/15/25 16:07 01/27/25 15:53 Heparin Sod Inj 1000 Unit/Ml Vial 10 Ml INDWELLCAT 01/29/25 16:06 3,300 unit PRN PRN Administration DIALYSIS Hydromorphone HCl 0.25 mg 01/23/25 15:24 Hydromorphone Inj 2 Mg/Ml Vial IVP 01/28/25 15:23 X1 PRN MRI Piperacillin Sod/Tazobactam 100 mls @ 25 mls/hr 01/23/25 11:15 01/28/25 08:27 Sod 4.5 gm/ Sodium Chloride IV 01/30/25 11:14 25 mls/hr Q12HR ADRIANA Administration Insulin Human Lispro 0 unit 01/16/25 07:30 01/28/25 07:38 Insulin Lispro (Admelog) 1 Unit/0.01 Ml Unit SC 02/15/25 07:29 Not Given AC ADRIANA Protocol Metoprolol Succinate 25 mg 01/17/25 09:00 01/28/25 08:25 Metoprolol Succinate Xl 25 Mg Tabcr PO 02/16/25 08:59 25 mg QDAY ADRIANA Administration Ondansetron HCl 4 mg 01/15/25 18:19 Ondansetron Inj 2 Mg/Ml Inj 2 Ml IVP 02/14/25 18:18 Q6H PRN NAUSEA OR VOMITING Protocol Pantoprazole Sodium 40 mg 01/26/25 09:00 01/28/25 08:27 Pantoprazole Inj 40 Mg Vial IVP 02/25/25 08:59 40 mg BID ADRIANA Administration Sennosides 1 tab 01/23/25 21:12 Senna Tablet PO 02/22/25 21:11 QDAY PRN CONSTIPATION Protocol Sucralfate 1 gm 01/28/25 11:30 Sucralfate Susp 1 Gm/10 Ml Udc PO 02/24/25 17:59 ACHS ADRIANA Vitamin B Complex/Vit C/Folic Acid 1 tab 01/16/25 09:00 01/28/25 08:24 Vit B12/Vit C/Fa (Nephrovite) Tablet PO 02/15/25 08:59 1 tab QDAY ADRIANA Administration Plan Mr. Springer is a 59?year old male with a relevant medical history of ESRD on HD M/W/ followed by Dr. Garcia, HTN, T2DM, and HLD who presents with altered mental status. Nephrology was consulted for the patient's hemodialysis management. #ESRD on HD M// #Uremia (resolved) #Hyperhosphatemia, hypercalemia Patient is well known to Dr. Garcia. BUN, Cr, and eGFR were 122, 13.8, and 4 respectively on admission, suggesting the patient was not able to attend one or more of his HD sessions. This was later confirmed by his son who stated that he missed several sessions last week. Increased BUN may explain the altered mental status due to uremic encephalopathy. BUN has returned to baseline around 55 for several days, unlikely to be cause of AMS. - Performed HD 01/15, 01/16, 01/18, 01/20, 01/22, 01/24, and 01/27. - HD session planned for tomorrow (01/28) if patient has not discharged. - Dr. Garcia cleared MRI with contrast as contrast is second-generation macrocyclic gadolinium-based contrast agent (GBCA). - Recommend swapping calcium acetate 1334 mg TID for sevelamer 800mg TID due to continued hyperphosphatemia and hypercalemia. - Continue to monitor renal function. - Nephrology will continue to follow. Patient was discussed with the Nephrology attending, Dr. Garcia. Thank you for allowing us to participate in the care of this patient. Bebeto Pino, PGY-1 Attending Provider Attestation/Addendum with assessment and plan and finding of resident. Seen and examined. Labs are reviewed Pastor Garcia MD
[2025-01-28] MEDS: SEVELAMER CARBONATE 800 MG TABLET PO ×2 (12:07→17:39)
[2025-01-28] MEDS: INSULIN LISPRO (AdmeLOG) 1 UNIT/0.01 ML UNIT SC ×2 (12:07→17:41)
[2025-01-28 16:05] LABS: Hematocrit 24.3 % (41.0-53.0)
[2025-01-28 17:22] LABS: Hemoglobin 8.2 g/dL (13.5-16.0)
--- NOTE | 2025-01-28 20:04 | PD.IMPROG ---
Documentation for date of: 01/28/25 Subjective Subjective Interval history: Patient evaluated Hemoglobin hematocrit did drop down to 7.1 and 21.1 requiring transfusion Exam Vital Signs Temp Pulse Resp BP Pulse Ox O2 Del Method O2 Flow Rate 97.2 F 61 17 137/71 H 99 Nasal Cannula 2 01/28/25 16:00 01/28/25 16:00 01/28/25 16:00 01/28/25 16:00 01/28/25 16:00 01/28/25 16:00 01/28/25 16:00 Objective Labs 01/28/25 15:54 01/28/25 05:30 Labs: Laboratory Results - last 24 hr 01/26/25 01/28/25 01/28/25 08:12 05:30 15:54 WBC 11.9 H RBC 2.41 L Hgb 7.1 L 8.2 L Hct 21.1 L* 24.3 L MCV 88 MCH 29.5 MCHC 33.6 RDW Std Deviation 55.7 H Plt Count 201 Neut % (Auto) 78 Lymph % (Auto) 9 L [place] % (Auto) 9 Eos % (Auto) 2 Baso % (Auto) 0 Neut # (Auto) 9.3 H Lymph # (Auto) 1.1 [place] # (Auto) 1.1 H Eos # (Auto) 0.3 Baso # (Auto) 0.0 Immature Gran # (Auto) 0.12 H Absolute Nucleated RBC 0.00 Immature Gran % 1 H Nucleated RBC % 0 Sodium 137 Potassium 4.7 Chloride 98 Carbon Dioxide 25.8 Anion Gap 13 BUN 50 H Creatinine 5.7 H* D Estim Creat Clear Calc 12.4 L eGFR 11 L* BUN/Creatinine Ratio 9 L Glucose 151 H Calculated Osmolality 290 Calcium 9.6 Corrected Calcium 10.4 H Phosphorus 6.0 H Magnesium 1.9 Total Bilirubin 2.0 H AST 20 ALT 62 H Alkaline Phosphatase 134 H D Total Protein 6.9 Albumin 3.0 L Globulin 3.9 H Albumin/Globulin Ratio 0.8 L Blood Type A Positive Antibody Screen NEGATIVE Crossmatch See Detail Blood Bank Wristband ID Yes Impressions Impression: Ulceration esophagus Anemia blood loss Questionable choledocholithiasis Continue current management ABG Interpretation ABG results: 01/15/25 19:57 VBG pH 7.48 VBG pCO2 27 L VBG pO2 54 VBG Base Excess -2 Assessment & Plan A&P Narrative # Abnormal liver function test most likely secondary to underlying cirrhotic liver disease MR abdomen without contrast shows possibility of a choledocholithiasis with 2 mm stone in the common bile duct LFTs are already improving Would recommend MRCP just to make sure indeed the stone is there He does not need if that is positive and emergent ERCP Which can be done as an outpatient # Abdominal bloating most likely due to stool impaction Would recommend GoLytely flush as there is a lot of stool burden on abdominal x-ray # Cholelithiasis in the setting of cirrhotic liver disease at the moment appears to be asymptomatic Other medical problems include Essential hypertension Diabetes mellitus type 2 End-stage renal disease on hemodialysis MWF Paroxysmal A-fib Time Spent With Patient Time: Total time spent is greater than 50% in coordination of care (as documented) at patient's floor/unit and/or counseling patient:
[2025-01-28] MEDS: PANTOPRAZOLE 40 MG TABLET PO (20:17)
[2025-01-29] VITALS (21 sets, daily range): BP systolic 101–167; BP diastolic 55–83; PULSE 66–85; RESP 13–96; TEMP 36–36.4; O2SAT 92–99; BMI 29.0
[2025-01-29 06:06] LABS: Basophils # (Auto) 0.1 Thou/mm3 (0.0-0.2); Basophils % (Auto) 0 % (0-2.5); Eosinophils # (Auto) 0.4 Thou/mm3 (0.0-0.5); Eosinophils % (Auto) 3 % (0-10); Hematocrit 24.8 % (41.0-53.0); Immature Granulocytes Auto 0.11 Thou/mm3 (0.00-0.00); Lymphocytes # (Auto) 1.1 Thou/mm3 (1.0-4.8); Lymphocytes % (Auto) 9 % (10-50); Mean Corpuscular HGB Conc 33.5 g/dl (31.0-37.0); Mean Corpuscular Hemoglobin 29.0 pg (25.0-35.0); Mean Corpuscular Volume 87 fL (80-100); Monocytes # (Auto) 1.2 Thou/mm3 (0.0-0.8); Monocytes % (Auto) 9 % (0-12); Neutrophils # (Auto) 9.6 Thou/mm3 (1.8-7.7); Neutrophils % (Auto) 78 % (37-80); Nucleated Red Blood Cell # 0.00 Thou/mm3 (0.00-0.00); Nucleated Red Blood Cell % 0 /100 WBC (0); Platelet Count 223 Thou/mm3 (140-440); RDW Standard Deviation 55.5 fL (35.1-43.9); Red Blood Count 2.86 Miln/mm3 (4.50-5.90); White Blood Count 12.3 Thou/mm3 (3.8-10.6)
[2025-01-29 06:16] LABS: Hemoglobin 8.3 g/dL (13.5-16.0)
[2025-01-29 06:37] LABS: Alanine Aminotransferase 48 U/L (10-49); Albumin, Serum 3.1 gm/dL (3.5-5.0); Albumin/Globulin Ratio 0.7 (1.2-2.2); Alkaline Phosphatase 126 U/L (46-116); Anion Gap 17 (7-16); Aspartate Amino Transferase 16 U/L (0-34); BUN/Creatinine Ratio 8 Ratio (12-20); Bilirubin,Total 1.7 mg/dL (0.3-1.2); Blood Urea Nitrogen 60 mg/dL (9-23); Calcium 9.5 mg/dL (8.3-10.6); Calcium (Corrected) 10.2 mg/dL (8.5-10.1); Carbon Dioxide 22.6 mMol/L (20.0-31.0); Chloride 98 mMol/L (98-107); Creatinine (Component) 7.2 mg/dL (0.6-1.3); Estimated Creatinine Clearance 9.9 mL/min (>60); Globulin 4.2 gm/dL (2.3-3.5); Glucose 144 mg/dL (74-106); Magnesium 1.9 mg/dL (1.6-2.6); Osmolality,Calculated 295 (275-295); Phosphorous 7.4 mg/dL (2.4-5.1); Potassium 4.9 mMol/L (3.4-5.1); Sodium 138 mMol/L (136-145); Total Protein 7.3 gm/dL (5.7-8.2); eGFR 8 See Note
--- NOTE | 2025-01-29 08:11 | ESPR_ITS ---
<Statement entered by Virgilio Crandall MD - 01/29/25 22:53> I have reviewed the note and agree with the resident's assessment & plan with exceptions as below. I have personally reviewed labs, imaging, home meds/prior records, examined the patient, formulated and discussed management plan with the IM team. Pt examined at bedside. We had conversation with patient, who was initially requesting to leave AMA, however he decided to stay. Pt to get nuclear med scan without pharm today, this is to rule out cholangitis. Liver markers, ALP and T bili continue to improve. GI on consult, appreciate recs. Repeat hematology, chemistry and electrolytes in AM. Anticipate d/c within 24-48 hours. Virgilio Crandall, PGY-2 Internal Medicine Documentation for date of: 01/29/25 Subjective Subjective Interval history: Patient examined at bedside today during dialysis session. No acute overnight events. Patient mentions slept well. No complaints of chest pain, shortness of breath, abdominal pain, nausea, vomiting. Patient awaiting physical therapy session prior to discharge. Exam Vital Signs Temp Pulse Resp BP Pulse Ox O2 Del Method O2 Flow Rate 97.2 F 72 19 154/83 H 95 Nasal Cannula 1 01/29/25 08:00 01/29/25 08:00 01/29/25 08:00 01/29/25 08:00 01/29/25 08:00 01/29/25 08:00 01/29/25 08:00 Narrative Exam General: AAOx3, NAD, weak appearing male HEENT: Moist mucous membranes, conjunctiva clear, EOMI, PERRLA, Cardiovascular: S1, S2, radial pulses +2 bilat, RRR Pulmonary: CTAB bilat no cough, no wheezing GI: No tenderness, no rebound tenderness, moderately distended abdomen Extremities: No presence of trace or pitting edema in lower extremities bilaterally, dorsalis pedis pulses +2 bilaterally Neuro: AAOx3, limited neurologic exam Psych: Good judgement, thought and behavior Objective Labs 01/30/25 04:27 01/30/25 04:27 Labs: Laboratory Results - last 24 hr 01/26/25 01/28/25 01/29/25 08:12 15:54 04:50 WBC 12.3 H RBC 2.86 L Hgb 8.2 L 8.3 L Hct 24.3 L 24.8 L MCV 87 MCH 29.0 MCHC 33.5 RDW Std Deviation 55.5 H Plt Count 223 Neut % (Auto) 78 Lymph % (Auto) 9 L [place] % (Auto) 9 Eos % (Auto) 3 Baso % (Auto) 0 Neut # (Auto) 9.6 H Lymph # (Auto) 1.1 [place] # (Auto) 1.2 H Eos # (Auto) 0.4 Baso # (Auto) 0.1 Immature Gran # (Auto) 0.11 H Absolute Nucleated RBC 0.00 Immature Gran % 1 H Nucleated RBC % 0 Sodium 138 Potassium 4.9 Chloride 98 Carbon Dioxide 22.6 Anion Gap 17 H BUN 60 H Creatinine 7.2 H* D Estim Creat Clear Calc 9.9 L eGFR 8 L* BUN/Creatinine Ratio 8 L Glucose 144 H Calculated Osmolality 295 Calcium 9.5 Corrected Calcium 10.2 H Phosphorus 7.4 H Magnesium 1.9 Total Bilirubin 1.7 H AST 16 ALT 48 Alkaline Phosphatase 126 H Total Protein 7.3 Albumin 3.1 L Globulin 4.2 H Albumin/Globulin Ratio 0.7 L Blood Type A Positive Antibody Screen NEGATIVE Crossmatch See Detail Blood Bank Wristband ID Yes ABG Interpretation ABG results: 01/15/25 19:57 VBG pH 7.48 VBG pCO2 27 L VBG pO2 54 VBG Base Excess -2 Quality Measures Quality Measures VTE prophylaxis Assessment & Plan Assessment Current Active Medications: Generic Name Dose Route Start Last Admin Trade Name Freq PRN Reason Stop Dose Admin Acetaminophen 650 mg 01/15/25 18:19 01/24/25 01:44 Acetaminophen 325 Mg Tablet PO 02/14/25 18:18 650 mg Q6H PRN Administration Fever >101.5 Acetaminophen 650 mg 01/15/25 18:19 01/26/25 20:10 Acetaminophen 325 Mg Tablet PO 02/14/25 18:18 650 mg Q6H PRN Administration PAIN SCALE 1-3 (mild Hydrocodone Bitart/Acetaminophen 1 tab 01/24/25 12:05 01/28/25 08:26 Hydrocodone/Apap 5/325 Tablet PO 01/29/25 12:04 1 tab Q6HR PRN Administration pain 4-7 Dextrose 25 ml 01/15/25 23:44 Dextrose 50%-Water Inj 50 Ml Syringe IV 02/14/25 23:43 Q15MIN PRN BG 50-70 responsive npo pt Dextrose 50 ml 01/15/25 23:44 Dextrose 50%-Water Inj 50 Ml Syringe IV 02/14/25 23:43 Q15MIN PRN BG <50 OR BG <70 & pt unresponsive Glucagon 1 mg 01/15/25 23:44 Glucagon Inj 1 Mg Vial IM Q15MIN PRN BG <70, and no IV access Heparin Sodium (Porcine) 3,300 unit 01/15/25 16:07 01/27/25 15:53 Heparin Sod Inj 1000 Unit/Ml Vial 10 Ml INDWELLCAT 01/29/25 16:06 3,300 unit PRN PRN Administration DIALYSIS Piperacillin Sod/Tazobactam 100 mls @ 25 mls/hr 01/23/25 11:15 01/29/25 00:18 Sod 4.5 gm/ Sodium Chloride IV 01/30/25 11:14 Infused Q12HR ADRIANA Infusion Insulin Human Lispro 0 unit 01/16/25 07:30 01/28/25 17:41 Insulin Lispro (Admelog) 1 Unit/0.01 Ml Unit SC 02/15/25 07:29 1 unit AC ADRIANA Administration Protocol Metoprolol Succinate 25 mg 01/17/25 09:00 01/28/25 08:25 Metoprolol Succinate Xl 25 Mg Tabcr PO 02/16/25 08:59 25 mg QDAY ADRIANA Administration Ondansetron HCl 4 mg 01/15/25 18:19 Ondansetron Inj 2 Mg/Ml Inj 2 Ml IVP 02/14/25 18:18 Q6H PRN NAUSEA OR VOMITING Protocol Pantoprazole Sodium 40 mg 01/28/25 21:00 01/28/25 20:17 Pantoprazole 40 Mg Tablet PO 02/25/25 08:59 40 mg BID ADRIANA Administration Sennosides 1 tab 01/23/25 21:12 Senna Tablet PO 02/22/25 21:11 QDAY PRN CONSTIPATION Protocol Sevelamer Carbonate 800 mg 01/28/25 12:00 01/28/25 17:39 Sevelamer Carbonate 800 Mg Tablet PO 02/27/25 11:59 800 mg TIDWM ADRIANA Administration Sucralfate 1 gm 01/28/25 11:30 01/28/25 20:17 Sucralfate Susp 1 Gm/10 Ml Udc PO 02/24/25 17:59 1 gm ACHS ADRIANA Administration Vitamin B Complex/Vit C/Folic Acid 1 tab 01/16/25 09:00 01/28/25 08:24 Vit B12/Vit C/Fa (Nephrovite) Tablet PO 02/15/25 08:59 1 tab QDAY ADRIANA Administration Plan Assessment 59 year old male with history of hypertension, diabetes, hyperlipidemia, ESRD admitted for acute encepahlopathy. #Transaminitis #Secondary to CBD stone #?Cholangitis CT abdomen showed Liver mildly irregular in contour. Hepatomegaly 19 cm. Splenomegaly 14 cm. Cholelithiasis. Gallbladder wall appears mildly thickened. T bili 2.2, worsening AST and ALT ( 344 and 250 respectively), 261 ALP Concern for stones in CBD MRI abdomen recommends MRCP as there was some possible 2 mm and adjacent 2 mm stones in the distal common bile duct 01/27/2025 Patient again declined MRCP despite offering pain medications. Patient was explained the pros and cons of the procedure, despite this the patient declined. Given this Dr. Hirsch does not think the patient would be fit for ERCP. At this time we are monitoring the transaminases to check for improvement 01/28/2025 Since patient does not want MRCP, new plan is to get HIDA scan to rule out cholangitis. Scheduled for tomorrow. If negative, patient to be discharged thereafter. Plan: ? HIDA scan today follow-up on result ? Dr. Hirsch following ? Trend transaminases?downtrending #Upper GI bleed #Diffuse hemorrhagic gastritis #Diffuse duodenitis EGD showed oozing of blood Anemia likely secondary to blood loss Hemoglobin today 8.3 Plan ? Holding Eliquis ? Started on pantoprazole 40 mg twice daily ? Follow hemoglobin and hematocrit ? Dr. Hirsch following #Enterobacter cloacae bacteremia - ongoing treatment #Enterobacter cloacae UTI CSF: turbid, bloody, WBC 11348, RBC >320K, monocytes 95, polynucleocyte 5, glucse high 125, protein high >2500. Gram stain negative. Most likely traumatic tap with reactive pleocytosis. Patient anticoagulated. White blood cell today 23.0 Blood culture (+) x2 sources on 01/15/25 - Enterobacter cloacae UA: WBC 217, Leuk (+) on 01/15/25 Urine Cx 01/15/25 - Enterobacter cloacae Blood cultures 01/18/25 - negative Blood cultures 01/19/2025 gram-positive cocci positive but the other tube showed no growth?so likely contaminant Patient not on steroids Plan: - Zosyn IV renally dosed ? Consider stepping down from Zosyn within the next 24 to 48 hours #Paroxysmal A-fib, rate controlled [id number]: 4 HAS-BLED:3 Plan: - Eliquis 5 mg BID ? currently on an hold due to upper GI bleed - Keep Mag > 2 and K > 4 - Telemetry - Home Metoprolol XL 25 mg qday #HAGMA #Lactic Acidosis Lactic acid 2.6, AG 17 Likely related to Lactate HCO3- 24.5?abnormally normal #Hyperparathyroidism #2/2 to ESRD PTH - 194.9 Ca 10.2, Phos 7.4 Plan: - Sevelamer 800 mg 3 times daily - Nephrology following and will adjust accordingly #Renal cyst - bilateral #Renal mass ruled out CT abdomen pelvis wo con Hepatosplenomegaly. Trace ascites. Tiny bilateral renal calculi. Recommend renal sonography follow-up to exclude 32 mm anterior right renal mass. Urinary bladder wall thickening, differential would include cystitis Renal US - ruled renal mass. Bilateral renal cortical thinning. Mild to moderate bilateral renal parenchymal scar formation. 5 mm left renal calculus Abdominal MRI shows 35 mm cyst #Insulin Independent Type II Diabetes mellitus type 2 Hgb A1C 6.1 (down from 6.9). Well controlled. Patient is not on diabetic meds at home, mentions diet-controlled. Glucose 195 in AM - patient does have bacteremia Plan: ? Sliding scale insulin ? Hypoglycemic protocol in place ? Blood sugar checks with meals #Hyperlipidemia LDL 83 - Continue home Atorvastatin 80mg daily #Acute Encephalopathy -resolved #CVA - ruled out #Generalized weakness #Myalgias DDX: toxic/metabolic (ESRD on HD, missed HD sessions), infectious (UTI), hypertensive encephalopathy (sBPs reach 190s), structural/seizures, other: constipation, urinary retention In the ED, BUN was 122, Cr was 13.8, and eGFR was 4. Patient missed several HD appts. Teleneuro assessed patient and noted NIHSS score of 18. CT head w/o 01/15/25: Negative for acute hemorrhage, mass effect or midline shift CTA head/neck 01/15/25: No significant neck arterial stenoses. No critical vertebral artery stenoses in the neck. 60% stenosis intracranial left vertebral artery. Attenuated basilar artery which does fill with no large vessel occlusions involving the basilar artery or posterior cerebral branches. Heavy calcification juxtasellar portions internal carotid arteries, 50% stenosis on the right 60% stenosis on the left. No middle cerebral or anterior cerebral artery large vessel occlusions CXR: Moderate vascular congestion WBC elevated, UA + UTI, serum ammonia WNL, TSH WNL Carotid dopper (01/16/25): Right internal carotid artery demonstrates 10-30% stenosis. Left internal carotid artery demonstrates 0-10% stenosis. No right vertebral artery flow is depicted Brain MRI with MRA negative (01/16/25). Negative for acute hemorrhage mass effect or midline shift. No acute infarct Echo 01/17/2025: Left ventricle dimensions normal with evidence of severe left ventricle hypertrophy asymmetric septal hypertrophy with septal thickness of 20 mm with normal left ventricle function ejection fraction of 60%. Grade 1 diastolic dysfunction is present. The RV is normal in size and systolic function. Aortic Valve sclerosis calcification with evidence of mild aortic stenosis gradient of peak velocity 1.7 m/s Mitral annulus calcification with evidence of mild mitral regurgitation. #Health Maintenance Disposition: Telemetry DVT prophylaxis: Holding Eliquis GI prophylaxis: Protonix 40 mg twice daily Diet: Renal CODE STATUS: DNR Case discussed with my attending Dr. Norton, and senior resident, Dr. Raz Romero MD PGY-1 Attending Provider Attestation/Addendum Patient seen and examined. HIDA scan pending. Patient is not in distress patient has been afebrile. He is on hemodialysis. I discussed with and supervised the resident physician who took care of this patient. I agree with the assessment and plan as above.
--- NOTE | 2025-01-29 09:00 | XR_ITS ---
Examination: Nuclear medicine hepatobiliary scan, static HIDA scan Date of exam: January 29, 2025, 1618 hours INDICATIONS: Cirrhosis, abdominal pain this week, elevated total bilirubin alkaline phosphatase, MRI abdomen January 23, 2025 suspicious for small stones in the common bile duct Technique And Findings: 5.29 mCi 99m Hepatolite administered intravenously. Serial imaging obtained immediately through 60 minutes. Homogenous uptake in the liver. Common bile duct small bowel activity noted gallbladder activity noted Impression: Normal study
--- NOTE | 2025-01-29 09:13 | PC.NURSE ---
Dr. Garcia called and dialysis time decreased to 2 hours.
[2025-01-29] MEDS: VIT B12/Vit C/FA (Nephrovite) TABLET 1 TAB PO (11:00)
[2025-01-29] MEDS: METOPROLOL SUCCINATE XL 25 MG TABCR PO (11:01)
[2025-01-29] MEDS: PANTOPRAZOLE 40 MG TABLET PO ×2 (11:01→21:59)
[2025-01-29] MEDS: PIPER/TAZO INJ 4.5 GM in SODIUM CHLORIDE 0.9% (POP) 100 ML IV ×2 (11:02→22:00)
[2025-01-29] MEDS: SUCRALFATE SUSP 1 GM/10 ML UDC PO ×3 (11:13→22:00)
[2025-01-29] MEDS: SEVELAMER CARBONATE 800 MG TABLET PO ×2 (11:13→17:55)
[2025-01-29] MEDS: INSULIN LISPRO (AdmeLOG) 1 UNIT/0.01 ML UNIT SC ×2 (11:55→22:13)
[2025-01-29] MEDS: HEPARIN SOD INJ 1000 UNIT/ML VIAL 10 ML 3300 UNIT INDWELLCAT (14:34)
--- NOTE | 2025-01-29 15:06 | PD.RESPRO ---
Documentation for date of: 01/29/25 Subjective Subjective Interval history: Overnight events: No acute events overnight. Patient was seen and examined at bedside. AM vitals and labs reviewed. Patient received blood transfusion yesterday for low H&H. Today, WBC 12.3, H&H 8.3/24.8, BUN 60, creatinine 7.2, GFR 80, corrected calcium 10.2, phosphate 7.4. Planning to pursue HIDA scan today. Hemodialysis session today lasted 2 hours and 2 minutes with net fluid removal of 2 L. Patient appeared to be very lethargic today, very easy to fall back asleep. Patient is aware of being in the hospital, which hospital, but does not know which day of the week it is, nor why he is currently still in the hospital. Patient seems overall more confused compared to yesterday, however, primary team spoke to the patient prior to dialysis session and noted that he seemed more awake, alert, and oriented. Will plan for dialysis on Monday if patient is still in the hospital and reassess phosphate levels tomorrow. If phosphate continues to be high, can consider increasing sevelamer to 1600 mg 3 times daily. Review of systems otherwise negative except for what is mentioned above. Exam Vital Signs Temp Pulse Resp BP Pulse Ox O2 Del Method O2 Flow Rate 97.6 F 80 20 124/81 99 Nasal Cannula 1 01/29/25 12:00 01/29/25 12:00 01/29/25 12:00 01/29/25 12:00 01/29/25 12:00 01/29/25 12:01/29/25 12:00 Narrative Exam Physical Exam: General: Lethargic, no acute distress. Skin: Warm, dry, intact, no obvious rash. Head: Normocephalic, atraumatic. Eye: Icteric conjunctiva, PERRL. Cardiovascular: Regular rate and rhythm, soft systolic murmur, +S1/S2. Respiratory: Lungs are clear to auscultation, respirations unlabored on NC, no crackles, no wheezing. Gastrointestinal: Soft, nontender, distended. No guarding or rebound tenderness. Extremities: No edema, no cyanosis, no clubbing. 2+ radial pulse bilaterally, 2+ pedal pulse bilaterally. Neuro: No focal deficits observed. Conversant, moving all extremities. No overt cerebellar signs/incoordination. Psychiatric: Cooperative, appropriate affect. Objective Labs 01/30/25 04:27 01/30/25 04:27 Labs: Laboratory Results - last 24 hr 01/28/25 01/29/25 15:54 04:50 WBC 12.3 H RBC 2.86 L Hgb 8.2 L 8.3 L Hct 24.3 L 24.8 L MCV 87 MCH 29.0 MCHC 33.5 RDW Std Deviation 55.5 H Plt Count 223 Neut % (Auto) 78 Lymph % (Auto) 9 L [place] % (Auto) 9 Eos % (Auto) 3 Baso % (Auto) 0 Neut # (Auto) 9.6 H Lymph # (Auto) 1.1 [place] # (Auto) 1.2 H Eos # (Auto) 0.4 Baso # (Auto) 0.1 Immature Gran # (Auto) 0.11 H Absolute Nucleated RBC 0.00 Immature Gran % 1 H Nucleated RBC % 0 Sodium 138 Potassium 4.9 Chloride 98 Carbon Dioxide 22.6 Anion Gap 17 H BUN 60 H Creatinine 7.2 H* D Estim Creat Clear Calc 9.9 L eGFR 8 L* BUN/Creatinine Ratio 8 L Glucose 144 H Calculated Osmolality 295 Calcium 9.5 Corrected Calcium 10.2 H Phosphorus 7.4 H Magnesium 1.9 Total Bilirubin 1.7 H AST 16 ALT 48 Alkaline Phosphatase 126 H Total Protein 7.3 Albumin 3.1 L Globulin 4.2 H Albumin/Globulin Ratio 0.7 L ABG Interpretation ABG results: 01/15/25 19:57 VBG pH 7.48 VBG pCO2 27 L VBG pO2 54 VBG Base Excess -2 Quality Measures Quality Measures VTE prophylaxis Assessment & Plan Assessment Current Active Medications: Generic Name Dose Route Start Last Admin Trade Name Freq PRN Reason Stop Dose Admin Acetaminophen 650 mg 01/15/25 18:19 01/24/25 01:44 Acetaminophen 325 Mg Tablet PO 02/14/25 18:18 650 mg Q6H PRN Administration Fever >101.5 Acetaminophen 650 mg 01/15/25 18:19 01/26/25 20:10 Acetaminophen 325 Mg Tablet PO 02/14/25 18:18 650 mg Q6H PRN Administration PAIN SCALE 1-3 (mild Dextrose 25 ml 01/15/25 23:44 Dextrose 50%-Water Inj 50 Ml Syringe IV 02/14/25 23:43 Q15MIN PRN BG 50-70 responsive npo pt Dextrose 50 ml 01/15/25 23:44 Dextrose 50%-Water Inj 50 Ml Syringe IV 02/14/25 23:43 Q15MIN PRN BG <50 OR BG <70 & pt unresponsive Glucagon 1 mg 01/15/25 23:44 Glucagon Inj 1 Mg Vial IM Q15MIN PRN BG <70, and no IV access Heparin Sodium (Porcine) 3,300 unit 01/15/25 16:07 01/29/25 14:34 Heparin Sod Inj 1000 Unit/Ml Vial 10 Ml INDWELLCAT 01/29/25 16:06 3,300 unit PRN PRN Administration DIALYSIS Piperacillin Sod/Tazobactam 100 mls @ 25 mls/hr 01/23/25 11:15 01/29/25 11:02 Sod 4.5 gm/ Sodium Chloride IV 01/30/25 11:14 25 mls/hr Q12HR ADRIANA Administration Insulin Human Lispro 0 unit 01/16/25 07:30 01/29/25 11:55 Insulin Lispro (Admelog) 1 Unit/0.01 Ml Unit SC 02/15/25 07:29 1 unit AC ADRIANA Administration Protocol Lorazepam 0.25 mg 01/29/25 08:18 Lorazepam 0.5 Mg Tablet PO 02/03/25 08:17 X1 PRN For HIDA scan Metoprolol Succinate 25 mg 01/17/25 09:00 01/29/25 11:01 Metoprolol Succinate Xl 25 Mg Tabcr PO 02/16/25 08:59 25 mg QDAY ADRIANA Administration Ondansetron HCl 4 mg 01/15/25 18:19 Ondansetron Inj 2 Mg/Ml Inj 2 Ml IVP 02/14/25 18:18 Q6H PRN NAUSEA OR VOMITING Protocol Pantoprazole Sodium 40 mg 01/28/25 21:00 01/29/25 11:01 Pantoprazole 40 Mg Tablet PO 02/25/25 08:59 40 mg BID ADRIANA Administration Sennosides 1 tab 01/23/25 21:12 Senna Tablet PO 02/22/25 21:11 QDAY PRN CONSTIPATION Protocol Sevelamer Carbonate 800 mg 01/28/25 12:00 01/29/25 11:13 Sevelamer Carbonate 800 Mg Tablet PO 02/27/25 11:59 800 mg TIDWM ADRIANA Administration Sucralfate 1 gm 01/28/25 11:30 01/29/25 11:13 Sucralfate Susp 1 Gm/10 Ml Udc PO 02/24/25 17:59 1 gm ACHS ADRIANA Administration Vitamin B Complex/Vit C/Folic Acid 1 tab 01/16/25 09:00 01/29/25 11:00 Vit B12/Vit C/Fa (Nephrovite) Tablet PO 02/15/25 08:59 1 tab QDAY ADRIANA Administration Plan Mr. Springer is a 59?year old male with a relevant medical history of ESRD on HD /W/ followed by Dr. Garcia, HTN, T2DM, and HLD who presents with altered mental status. Nephrology was consulted for the patient's hemodialysis management. #ESRD on HD // #Uremia (resolved) #Hyperhosphatemia, hypercalemia Patient is well known to Dr. Garcia. BUN, Cr, and eGFR were 122, 13.8, and 4 respectively on admission, suggesting the patient was not able to attend one or more of his HD sessions. This was later confirmed by his son who stated that he missed several sessions last week. Increased BUN may explain the altered mental status due to uremic encephalopathy. BUN has returned to baseline around 55 for several days, unlikely to be cause of AMS. - Performed HD 01/15, 01/16, 01/18, 01/20, 01/22, 01/24, 01/27, and 01/29. - HD session planned for Monday (01/31) if patient has not discharged. - Dr. Garcia cleared MRI with contrast as contrast is second-generation macrocyclic gadolinium-based contrast agent (GBCA). - Continue sevelamer 800mg TID due to continued hyperphosphatemia and hypercalemia. - Consider increasing to sevelamer 1600mg TID pending tomorrow a.m. labs. - Continue to monitor renal function. - Nephrology will continue to follow. Patient was discussed with the Nephrology attending, Dr. Garcia. Thank you for allowing us to participate in the care of this patient. Bebeto Pino, PGY-1 Attending Provider Attestation/Addendum with assessment and plan and finding of resident. Seen and examined. Labs are reviewed Pastor Garcia MD
--- NOTE | 2025-01-29 20:37 | PD.IMPROG ---
Documentation for date of: 01/29/25 Subjective Subjective Interval history: Patient evaluated Total bilirubin 1.7 AST ALT 16 and 48 and alk phos of 126 Exam Vital Signs Temp Pulse Resp BP Pulse Ox O2 Del Method O2 Flow Rate 97.0 F 75 18 117/74 92 L Nasal Cannula 2 01/29/25 16:00 01/29/25 16:00 01/29/25 16:00 01/29/25 16:00 01/29/25 16:00 01/29/25 16:00 01/29/25 16:00 Objective Labs 01/29/25 04:50 01/29/25 04:50 Labs: Laboratory Results - last 24 hr 01/29/25 04:50 WBC 12.3 H RBC 2.86 L Hgb 8.3 L Hct 24.8 L MCV 87 MCH 29.0 MCHC 33.5 RDW Std Deviation 55.5 H Plt Count 223 Neut % (Auto) 78 Lymph % (Auto) 9 L [place] % (Auto) 9 Eos % (Auto) 3 Baso % (Auto) 0 Neut # (Auto) 9.6 H Lymph # (Auto) 1.1 [place] # (Auto) 1.2 H Eos # (Auto) 0.4 Baso # (Auto) 0.1 Immature Gran # (Auto) 0.11 H Absolute Nucleated RBC 0.00 Immature Gran % 1 H Nucleated RBC % 0 Sodium 138 Potassium 4.9 Chloride 98 Carbon Dioxide 22.6 Anion Gap 17 H BUN 60 H Creatinine 7.2 H* D Estim Creat Clear Calc 9.9 L eGFR 8 L* BUN/Creatinine Ratio 8 L Glucose 144 H Calculated Osmolality 295 Calcium 9.5 Corrected Calcium 10.2 H Phosphorus 7.4 H Magnesium 1.9 Total Bilirubin 1.7 H AST 16 ALT 48 Alkaline Phosphatase 126 H Total Protein 7.3 Albumin 3.1 L Globulin 4.2 H Albumin/Globulin Ratio 0.7 L Impressions Impression: Esophageal ulceration Stable LFTs Continue conservative management ABG Interpretation ABG results: 01/15/25 19:57 VBG pH 7.48 VBG pCO2 27 L VBG pO2 54 VBG Base Excess -2 Assessment & Plan A&P Narrative # Abnormal liver function test most likely secondary to underlying cirrhotic liver disease MR abdomen without contrast shows possibility of a choledocholithiasis with 2 mm stone in the common bile duct LFTs are already improving Would recommend MRCP just to make sure indeed the stone is there He does not need if that is positive and emergent ERCP Which can be done as an outpatient # Abdominal bloating most likely due to stool impaction Would recommend GoLytely flush as there is a lot of stool burden on abdominal x-ray # Cholelithiasis in the setting of cirrhotic liver disease at the moment appears to be asymptomatic Other medical problems include Essential hypertension Diabetes mellitus type 2 End-stage renal disease on hemodialysis MWF Paroxysmal A-fib Time Spent With Patient Time: Total time spent is greater than 50% in coordination of care (as documented) at patient's floor/unit and/or counseling patient:
[2025-01-30] VITALS (7 sets, daily range): BP systolic 114–145; BP diastolic 61–78; PULSE 4–83; RESP 15–98; TEMP 36–36.2; O2SAT 94–96; BMI 27.2
[2025-01-30 06:37] LABS: Basophils # (Auto) 0.1 Thou/mm3 (0.0-0.2); Basophils % (Auto) 0 % (0-2.5); Eosinophils # (Auto) 0.3 Thou/mm3 (0.0-0.5); Eosinophils % (Auto) 3 % (0-10); Lymphocytes # (Auto) 1.0 Thou/mm3 (1.0-4.8); Mean Corpuscular Volume 87 fL (80-100); Nucleated Red Blood Cell # 0.00 Thou/mm3 (0.00-0.00); Nucleated Red Blood Cell % 0 /100 WBC (0); Platelet Count 251 Thou/mm3 (140-440)
[2025-01-30 06:38] LABS: Hematocrit 25.7 % (41.0-53.0); Immature Granulocytes Auto 0.16 Thou/mm3 (0.00-0.00); Lymphocytes % (Auto) 8 % (10-50); Mean Corpuscular HGB Conc 33.9 g/dl (31.0-37.0); Mean Corpuscular Hemoglobin 29.5 pg (25.0-35.0); Monocytes # (Auto) 1.0 Thou/mm3 (0.0-0.8); Monocytes % (Auto) 8 % (0-12); Neutrophils # (Auto) 10.4 Thou/mm3 (1.8-7.7); Neutrophils % (Auto) 80 % (37-80); RDW Standard Deviation 53.9 fL (35.1-43.9); Red Blood Count 2.95 Miln/mm3 (4.50-5.90); White Blood Count 13.0 Thou/mm3 (3.8-10.6)
[2025-01-30 06:49] LABS: Hemoglobin 8.7 g/dL (13.5-16.0)
[2025-01-30 07:05] LABS: Alanine Aminotransferase 45 U/L (10-49); Albumin, Serum 3.4 gm/dL (3.5-5.0); Albumin/Globulin Ratio 0.8 (1.2-2.2); Alkaline Phosphatase 138 U/L (46-116); Anion Gap 17 (7-16); Aspartate Amino Transferase 22 U/L (0-34); BUN/Creatinine Ratio 8 Ratio (12-20); Bilirubin,Total 1.4 mg/dL (0.3-1.2); Blood Urea Nitrogen 46 mg/dL (9-23); Calcium 9.5 mg/dL (8.3-10.6); Calcium (Corrected) 10.0 mg/dL (8.5-10.1); Carbon Dioxide 23.9 mMol/L (20.0-31.0); Chloride 97 mMol/L (98-107); Creatinine (Component) 6.1 mg/dL (0.6-1.3); Estimated Creatinine Clearance 11.3 mL/min (>60); Globulin 4.3 gm/dL (2.3-3.5); Glucose 182 mg/dL (74-106); Magnesium 1.9 mg/dL (1.6-2.6); Osmolality,Calculated 292 (275-295); Phosphorous 6.6 mg/dL (2.4-5.1); Potassium 4.6 mMol/L (3.4-5.1); Sodium 138 mMol/L (136-145); Total Protein 7.7 gm/dL (5.7-8.2); eGFR 10 See Note
[2025-01-30] MEDS: SUCRALFATE SUSP 1 GM/10 ML UDC PO ×2 (07:40→13:00)
[2025-01-30] MEDS: INSULIN LISPRO (AdmeLOG) 1 UNIT/0.01 ML UNIT SC ×2 (07:40→12:59)
[2025-01-30] MEDS: SEVELAMER CARBONATE 800 MG TABLET PO ×2 (07:41→13:00)
[2025-01-30] MEDS: PIPER/TAZO INJ 4.5 GM in SODIUM CHLORIDE 0.9% (POP) 100 ML IV (08:32)
[2025-01-30] MEDS: METOPROLOL SUCCINATE XL 25 MG TABCR PO (08:33)
[2025-01-30] MEDS: ACETAMINOPHEN 325 MG TABLET 650 MG PO ×2 (08:33→13:00)
[2025-01-30] MEDS: PANTOPRAZOLE 40 MG TABLET PO (08:34)
[2025-01-30] MEDS: VIT B12/Vit C/FA (Nephrovite) TABLET 1 TAB PO (08:34)
--- NOTE | 2025-01-30 09:32 | ESPR_ITS ---
Documentation for date of: 01/30/25 Subjective Subjective Interval history: Overnight events: No acute events overnight. Patient was seen and examined at bedside. AM vitals and labs reviewed. WBC 13.0, BUN 46, creatinine 6.1, GFR 10, corrected calcium 7.0, phosphate 6.6. HIDA scan done yesterday 01/29 was negative for acute processes. Patient to be discharged today. During today's visit prior to discharge, the patient was very talkative and did not seem lethargic at all. He did not seem confused like yesterday, and repeated that he would like to go home today. Review of systems otherwise negative except for what is mentioned above. Exam Vital Signs Temp Pulse Resp BP Pulse Ox O2 Del Method O2 Flow Rate 97.1 F 83 20 145/78 H 95 Room Air 2 01/30/25 08:00 01/30/25 08:33 01/30/25 08:00 01/30/25 08:33 01/30/25 08:00 01/30/25 08:00 01/29/25 16:00 Narrative Exam Physical Exam: General: Alert, no acute distress. Skin: Warm, dry, intact, no obvious rash. Head: Normocephalic, atraumatic. Eye: Icteric conjunctiva, PERRL. Cardiovascular: Regular rate and rhythm, soft systolic murmur, +S1/S2. Respiratory: Lungs are clear to auscultation, respirations unlabored, no crackles, no wheezing. Gastrointestinal: Soft, nontender, distended. No guarding or rebound tenderness. Extremities: No edema, no cyanosis, no clubbing. 2+ radial pulse bilaterally, 2+ pedal pulse bilaterally. Neuro: No focal deficits observed. Conversant, moving all extremities. No overt cerebellar signs/incoordination. Psychiatric: Cooperative, appropriate affect. Objective Labs 01/30/25 04:27 01/30/25 04:27 Labs: Laboratory Results - last 24 hr 01/30/25 04:27 WBC 13.0 H RBC 2.95 L Hgb 8.7 L Hct 25.7 L MCV 87 MCH 29.5 MCHC 33.9 RDW Std Deviation 53.9 H Plt Count 251 Neut % (Auto) 80 Lymph % (Auto) 8 L [place] % (Auto) 8 Eos % (Auto) 3 Baso % (Auto) 0 Neut # (Auto) 10.4 H Lymph # (Auto) 1.0 [place] # (Auto) 1.0 H Eos # (Auto) 0.3 Baso # (Auto) 0.1 Immature Gran # (Auto) 0.16 H Absolute Nucleated RBC 0.00 Immature Gran % 1 H Nucleated RBC % 0 Sodium 138 Potassium 4.6 Chloride 97 L Carbon Dioxide 23.9 Anion Gap 17 H BUN 46 H Creatinine 6.1 H* D Estim Creat Clear Calc 11.3 L eGFR 10 L* BUN/Creatinine Ratio 8 L Glucose 182 H Calculated Osmolality 292 Calcium 9.5 Corrected Calcium 10.0 Phosphorus 6.6 H Magnesium 1.9 Total Bilirubin 1.4 H AST 22 ALT 45 Alkaline Phosphatase 138 H Total Protein 7.7 Albumin 3.4 L Globulin 4.3 H Albumin/Globulin Ratio 0.8 L ABG Interpretation ABG results: 01/15/25 19:57 VBG pH 7.48 VBG pCO2 27 L VBG pO2 54 VBG Base Excess -2 Quality Measures Quality Measures VTE prophylaxis Assessment & Plan Assessment Current Active Medications: Generic Name Dose Route Start Last Admin Trade Name Freq PRN Reason Stop Dose Admin Acetaminophen 650 mg 01/15/25 18:19 01/30/25 08:33 Acetaminophen 325 Mg Tablet PO 02/14/25 18:18 650 mg Q6H PRN Administration Fever >101.5 Acetaminophen 650 mg 01/15/25 18:19 01/26/25 20:10 Acetaminophen 325 Mg Tablet PO 02/14/25 18:18 650 mg Q6H PRN Administration PAIN SCALE 1-3 (mild Dextrose 25 ml 01/15/25 23:44 Dextrose 50%-Water Inj 50 Ml Syringe IV 02/14/25 23:43 Q15MIN PRN BG 50-70 responsive npo pt Dextrose 50 ml 01/15/25 23:44 Dextrose 50%-Water Inj 50 Ml Syringe IV 02/14/25 23:43 Q15MIN PRN BG <50 OR BG <70 & pt unresponsive Glucagon 1 mg 01/15/25 23:44 Glucagon Inj 1 Mg Vial IM Q15MIN PRN BG <70, and no IV access Piperacillin Sod/Tazobactam 100 mls @ 25 mls/hr 01/23/25 11:15 01/30/25 08:32 Sod 4.5 gm/ Sodium Chloride IV 01/30/25 11:14 25 mls/hr Q12HR ADRIANA Administration Insulin Human Lispro 0 unit 01/29/25 22:15 01/30/25 07:40 Insulin Lispro (Admelog) 1 Unit/0.01 Ml Unit SC 02/28/25 22:14 1 unit ACHS ADRIANA Administration Protocol Metoprolol Succinate 25 mg 01/17/25 09:00 01/30/25 08:33 Metoprolol Succinate Xl 25 Mg Tabcr PO 02/16/25 08:59 25 mg QDAY ADRIANA Administration Ondansetron HCl 4 mg 01/15/25 18:19 Ondansetron Inj 2 Mg/Ml Inj 2 Ml IVP 02/14/25 18:18 Q6H PRN NAUSEA OR VOMITING Protocol Pantoprazole Sodium 40 mg 01/28/25 21:00 01/30/25 08:34 Pantoprazole 40 Mg Tablet PO 02/25/25 08:59 40 mg BID ADRIANA Administration Sennosides 1 tab 01/23/25 21:12 Senna Tablet PO 02/22/25 21:11 QDAY PRN CONSTIPATION Protocol Sevelamer Carbonate 800 mg 01/28/25 12:00 01/30/25 07:41 Sevelamer Carbonate 800 Mg Tablet PO 02/27/25 11:59 800 mg TIDWM ADRIANA Administration Sucralfate 1 gm 01/28/25 11:30 01/30/25 07:40 Sucralfate Susp 1 Gm/10 Ml Udc PO 02/24/25 17:59 1 gm ACHS ADRIANA Administration Vitamin B Complex/Vit C/Folic Acid 1 tab 01/16/25 09:00 01/30/25 08:34 Vit B12/Vit C/Fa (Nephrovite) Tablet PO 02/15/25 08:59 1 tab QDAY ADRIANA Administration Plan Mr. Springer is a 59?year old male with a relevant medical history of ESRD on HD // followed by Dr. Garcia, HTN, T2DM, and HLD who presents with altered mental status. Nephrology was consulted for the patient's hemodialysis management. #ESRD on HD // #Uremia (resolved) #Hyperhosphatemia, hypercalemia Patient is well known to Dr. Garcia. BUN, Cr, and eGFR were 122, 13.8, and 4 respectively on admission, suggesting the patient was not able to attend one or more of his HD sessions. This was later confirmed by his son who stated that he missed several sessions last week. Increased BUN may explain the altered mental status due to uremic encephalopathy. BUN has returned to baseline around 55 for several days, unlikely to be cause of AMS. - Performed HD 01/15, 01/16, 01/18, 01/20, 01/22, 01/24, 01/27, and 01/29. - Continue sevelamer 800mg TID due to continued hyperphosphatemia and hypercalemia. - Continue to monitor renal function. - Follow up with Nephrology outpatient. Patient was discussed with the Nephrology attending, Dr. Garcia. Thank you for allowing us to participate in the care of this patient. Bebeto Pino, PGY-1 Attending Provider Attestation/Addendum see other note
--- NOTE | 2025-01-30 11:49 | PC.SS ---
Addendum entered by Elsa Taylor 01/30/25 14:39: SS received a call from [facility] that they need to push back machine operator hop picker time from 3p.m to 4p.m. Updated UC Addendum entered by Elsa Taylor 01/30/25 13:35: SS contacted patient's son, Ric, with update on discharge time and dialysis transport which the facility will be taking care of . Son agreeable with plan. Original Note: Follow up note: Patient has d/c orders and SS set up through [facility] with a reference# [id number] for 3p.m. to [facility]. SS informed patient and nursing. SS updated [facility] of d/c and starting shift tomorrow. Patient's dialysis schedule is M/W/F @ 1100am. Staff are aware he will be at [facility]. [facility] has agreed to transport him for first few sessions until they get him established with [facility] for further transport arrangements.
--- NOTE | 2025-01-30 12:29 | ESDS_ITS ---
<Statement entered by Virgilio Crandall MD - 01/31/25 11:26> I have reviewed the note and agree with the resident's assessment & plan with exceptions as below. I have personally reviewed labs, imaging, home meds/prior records, examined the patient, formulated and discussed management plan with the IM team. Pt examined at bedside today, he continues to improve and seems to be at his baseline. He continues to refuse MRCP, however, his liver enzymes, t bili and ALP have all downtrended. There is slight possibility he passed a CBD stone. Nevertheless, his nuclear med scan w/out pharm (Hepatobilliary) was negative. Pt was then discharged with the instructions outlined below. Virgilio Crandall, PGY-2 Internal Medicine Planned Discharge Date 01/30/25 DS: Providers Provider Date of admission: 01/15/25 15:28 Primary care physician: Physician Bibi Primary/Family Admitting Provider: Ally Alejo MD Attending Provider on Admission: Art Wong MD Consults: 01/15/25 18:10 Consult to Neurology / Tele-Neurology Routine Comment: Consulting Provider: [facility] 01/15/25 18:18 Consult to Nephrology Routine Comment: Consulting Provider: Pastor Garcia 01/15/25 18:29 Consult to Neurology / Tele-Neurology Routine Comment: AMS, Stroke alert Consulting Provider: Case Freed 01/15/25 18:47 Referral Physical Therapy Routine Comment: Physician Instructions: Referral Speech Therapy Routine Comment: 01/20/25 08:02 Consult to Infectious Diseases Stat Comment: bacteremia Consulting Provider: Tru Patel 01/24/25 17:12 Consult to Gastroenterology Routine Comment: CBD dilation, worsening liver function tests Consulting Provider: Peyton Hirsch Attending Provider on DC: Dr. Eleazar Norton Discharging Provider: Dr. Eleazar Norton DS: Diagnosis Problem List Completed Was Problem List Reviewed/Reconciled?: Yes Hospital Course Hospital Course Hospital course: 59 year old male with history of hypertension, diabetes, hyperlipidemia, ESRD on HD (MWF) admitted for acute encepahlopathy after having missed several dialysis sessions. Hospital course: Upon admission, the patient's initial vital signs were temperature 98.4, pulse 90, respiratory rate 19, oxygen saturation 100% on 6 liters oxygen. A rapid response was called during dialysis due to the patient's inability to follow commands. A Head CT scan was ordered, but dialysis continued. The patient opted to stop dialysis 40 minutes early. Following dialysis, his lethargy worsened, prompting a stroke alert and a Tele-neurology consult. Initial laboratory results were notable for: Elevated White Blood Cell count: 31.8 Renal Impairment: Blood Urea Nitrogen 122, Creatinine 13.8 Electrolyte Imbalance: Potassium 5.9, Anion Gap 21 Hyperglycemia: Glucose 191 Elevated Procalcitonin: 35.25 A brain MRI ruled out an acute stroke. Throughout his hospitalization, the patient experienced waxing and waning altered mental status, primarily attributed to metabolic encephalopathy from his ESRD and missed dialysis. Nephrology (Dr. Alfredo) and Neurology (Dr. Freed) closely followed his case. Further investigation revealed a urinary tract infection with Enterobacter cloacae, which progressed to bacteremia. The patient required approximately two weeks of antibiotics, and his white blood cell count significantly improved after one week of treatment. He also developed anemia, prompting a workup for a possible gastrointestinal bleed. Dr. Hirsch performed an EGD, which revealed hemorrhagic gastritis and diffuse duodenitis, likely contributing to his anemia due to blood loss. Concerns for possible cholangitis arose due to a MRI abdomen showing a possible 2 mm common bile duct stone and elevated transaminases. However, the patient declined a MRCP. A subsequent HIDA scan was performed and successfully ruled out a common bile duct stone. Tranminases continued to improve closer to discharge. At the time of discharge, the patient is stable and well. He will continue to improve his strength and balance with outpatient physiotherapy. He had been advised to follow up with Dr. Hirsch (Gastroenterology) and Dr. Freed (Neurology). The patient currently does not have an established primary care physician. Discharge Instructions: Follow up with your PCP within one week of discharge Follow up with your jalousies installer, Dr. Garcia, within one week of discharge I am stopping your calcium acetate and prescribing a different medicine for your high phosphorous levels.It is called sevelamer carbonate, take this medicine as prescribed See your seat installer, Dr. Hirsch, to follow up from the hospital. Address: [address] [place] [address]. Follow up with neurologist, Dr. Noel, outpatient for a muscle study. Address: [address] [place] [address] [place] [id number]. Speak with your PCP in regards to getting an MRCP as you had a stone in your common bile duct. You were refusing the MRI while in the hospital. Return to ER if your symptoms worsen or return Admission diagnoses: #Transaminitis 2/2 to CBD stone #?Cholangitis #Upper GI bleed #Diffuse hemorrhagic gastritis #Diffuse duodenitis #Enterobacter cloacae bacteremia - ongoing treatment #Enterobacter cloacae UTI #Paroxysmal A-fib, rate controlled #HAGMA 2/2 to Lactic Acidosis #Hyperparathyroidism 2/2 to ESRD #Renal cyst - bilateral #Renal mass ruled out #Insulin Independent Type II Diabetes mellitus type 2 #Hyperlipidemia #Acute Encephalopathy -resolved #CVA - ruled out #Generalized weakness #Myalgias Case discussed with my attending Dr. Norton, and senior resident, Dr. Raz Romero MD PGY-1 Time Spent with Patient Time attestation: Total time spent providing and/or coordinating discharge services: Time spent: Greater than 30 minutes Exam Vital Signs Temp Pulse Resp BP Pulse Ox O2 Del Method O2 Flow Rate 97.1 F 83 20 145/78 H 95 Room Air 2 01/30/25 08:00 01/30/25 08:33 01/30/25 08:00 01/30/25 08:33 01/30/25 08:00 01/30/25 08:00 01/29/25 16:00 Narrative Exam General: AAOx3, NAD, weak appearing male HEENT: Moist mucous membranes, conjunctiva clear, EOMI, PERRLA, Cardiovascular: S1, S2, radial pulses +2 bilat, RRR Pulmonary: CTAB bilat no cough, no wheezing GI: No tenderness, no rebound tenderness, moderately distended abdomen Extremities: No presence of trace or pitting edema in lower extremities bilaterally, dorsalis pedis pulses +2 bilaterally Neuro: AAOx3, limited neurologic exam Psych: Good judgement, thought and behavior Discharge Plan Plan Patient Disposition: Xfer Skilled Nsg Fac (SNF) Patient condition on transfer: Stable Care Plan Goals: Discharge Instructions: Follow up with your PCP within one week of discharge Follow up with your jalousies installer, Dr. Garcia, within one week of discharge I am stopping your calcium acetate and prescribing a different medicine for your high phosphorous levels.It is called sevelamer carbonate, take this medicine as prescribed See your seat installer, Dr. Hirsch, to follow up from the hospital. Address: [address], [place] [address]. Follow up with neurologist, Dr. Noel, outpatient for a muscle study. Address: [address] [place] [address] [place] [address]. Speak with your PCP in regards to getting an MRCP as you had a stone in your common bile duct. You were refusing the MRI while in the hospital. Return to ER if your symptoms worsen or return Prescriptions/Referrals Prescriptions/Med Rec: New sevelamer carbonate 800 mg tablet 800 mg PO TID 30 Days Qty: 90 0RF Rx Instructions: Take one tablet by mouth three times a day Continued Ileana-Koko Rx 1-60-300 mg-mg-mcg tablet 1 tab PO .QD Patient Comments: TAKE ONE TABLET BY MOUTH EVERY DAY VITAMIN Velphoro 500 mg tablet,chewable 500 mg PO TID metoprolol succinate 25 mg Tablet Extended Release 24 Hr 25 mg PO QDAY 30 Days Qty: 30 3RF Eliquis 5 mg tablet 5 mg PO BID Discontinued calcium acetate(phosphat bind) 667 mg Capsule 1,334 mg PO TIDWM Qty: 90 0RF Referrals: No Primary/Family,Physician [Primary Care Provider] - Patient/Caregiver Discharge Instructions Discharge Activity: as per physical therapy and activity as tolerated Education Materials: MR Cholangiopancreatography, Acute Kidney Failure Dc, ED Bacteremia, Suspected (Adult), ED Altered Level Consciousness Ch Print Language: Sinhala Stand Alone Forms: [facility] Award Info., Patient Portal Info Letter Discharge Order Discharge Orders: Discharge (Routine); Ordered 01/30/25 Ordered By: Virgilio Crandall Quality Discharge Quality Measures VTE prophylaxis Attestestation Attestation I discussed with and supervised the resident physician who took care of this patient. I agree with the assessment and discharge plan as above. Patient should follow-up with his PCP. He will need to be compliant with his hemodialysis schedule. Return to the emergency room for recurrent symptoms.
[2025-02-06 17:49] LABS: HSV-1 DNA, CSF NOT DETECTED copies/mL; HSV-1 DNA, CSF Source SERUM
[2025-02-07 06:25] LABS: HSV-2 DNA, CSF NOT DETECTED copies/mL; West Nile Virus (IgG), CSF 1.35; West Nile Virus (IgM), CSF <0.90
== END 2025-01-30 14:55 | disposition skilled nursing facility (03) | DRG 70 ==
LOC: SERX 12:06 → SERHOLD 15:55 → S2NX 23:35
PROVIDERS: Internal Medicine Infectious Disease; Psychiatry & Neurology Neurology; Specialist; Admitting Provider Student in an Organized Health Care Education/Training Program; Emergency Provider Emergency Medicine; Visit Provider Student in an Organized Health Care Education/Training Program
PROC: (CPT 43239; principal; 2025-01-25 16:15)
DX: G93.49 Other encephalopathy (principal); K29.71 Gastritis, unspecified, with bleeding; N18.6 End stage renal disease; D62 Acute posthemorrhagic anemia; E87.20 Acidosis, unspecified; I13.2 Hypertensive heart and chronic kidney disease with heart failure and with stage 5 chronic kidney disease, or end stage renal disease; K22.10 Ulcer of esophagus without bleeding; K80.30 Calculus of bile duct with cholangitis, unspecified, without obstruction; N39.0 Urinary tract infection, site not specified; R18.8 Other ascites; E78.5 Hyperlipidemia, unspecified; G93.41 Metabolic encephalopathy; Z99.2 Dependence on renal dialysis; E11.22 Type 2 diabetes mellitus with diabetic chronic kidney disease; I48.0 Paroxysmal atrial fibrillation; D72.829 Elevated white blood cell count, unspecified; Z66 Do not resuscitate; E11.65 Type 2 diabetes mellitus with hyperglycemia; E78.00 Pure hypercholesterolemia, unspecified; E83.39 Other disorders of phosphorus metabolism; F41.9 Anxiety disorder, unspecified; I34.81 Nonrheumatic mitral (valve) annulus calcification; I50.9 Heart failure, unspecified; K21.9 Gastro-esophageal reflux disease without esophagitis; K29.80 Duodenitis without bleeding; K44.9 Diaphragmatic hernia without obstruction or gangrene; K56.41 Fecal impaction; K74.60 Unspecified cirrhosis of liver; K80.70 Calculus of gallbladder and bile duct without cholecystitis without obstruction; M48.02 Spinal stenosis, cervical region; M54.30 Sciatica, unspecified side; N20.0 Calculus of kidney; N28.1 Cyst of kidney, acquired; N28.89 Other specified disorders of kidney and ureter; W19.XXXA Unspecified fall, initial encounter; Z79.01 Long term (current) use of anticoagulants; Z79.4 Long term (current) use of insulin; Z79.899 Other long term (current) drug therapy; Z91.158 Patient's noncompliance with renal dialysis for other reason; B96.89 Other specified bacterial agents as the cause of diseases classified elsewhere
CPT/HCPCS: 36415; 70450; 70496; 70498; 70544; 71045; 72040; 72070; 72141; 72146; 72148; 74018; 74176; 74181; 76700; 76705; 76770; 78226; 80053; 80061; 80202; 80307; 81001; 82140; 82550; 82607; 82746; 82803; 82945; 83036; 83605; 83690; 83735; 83880; 83970; 84100; 84145; 84157; 84439; 84443; 84484; 85014; 85018; 85025; 85610; 85730; 86171; 86331; 86592; 86635; 86703; 86788; 86789; 86850; 86900; 86901; 86923; 87040; 87070; 87077; 87081; 87086; 87186; 87205; 87530; 89051; 92610; 93005; 93306; 93880; 96365; 97162; 99285; A4649; A9537; J0696; J1171; J1643; J1815; J2250; J2470; J2543; J3010; J3373; J7050; J7999; P9016; P9047; Q9967; A9270

== ENCOUNTER 2025-02-07 15:00 | Inpatient (IN) | payer MEDICARE, MEDICAID, SELFPAY ==
[2025-02-07] VITALS (24 sets, daily range): BP systolic 80–136; BP diastolic 50–81; PULSE 80–96; RESP 12–28; TEMP 36–37.1; O2SAT 95–99; BMI 25.6
--- NOTE | 2025-02-07 15:02 | PD.EDWEAK ---
ED Weakness RME/HPI General Chief complaint: Weakness Stated complaint: GENERALIZED WEAKNESS, MISSED DIALYSIS x 1 WEEK Time Seen by Provider: 02/07/25 15:07 Arrival date/time: 02/07/25 15:00 Limitations: no limitations RME / HPI RME / HPI Narrative: DR. BEYER MAIN ED EVALUATION: 59-year-old male with past medical history of end-stage renal disease on dialysis, hypertension, diabetes mellitus type 2, and hyperlipidemia presents to the Emergency Department BIB from [place] [facility] with complaint of generalized fatigue and weakness. Per nursing staff, the patient was previously refusing dialysis and appeared confused. Per EMS, he was not confused upon transport and now states he wants dialysis. Denies chest pain, shortness of breath, fever, lightheadedness, or syncope. No known allergies. Patient has a left arm port for dialysis. Followed by outpatient dietitian Dr. Garcia. Related Data Home Medications ?Medication ?Instructions ?Recorded ?Confirmed sucroferric oxyhydroxide 500 mg 500 mg PO TID 11/03/24 01/20/25 chewable tablet (Velphoro) vitamin B comp no.3-folic acid 1 1 tab PO .QD 11/03/24 01/20/25 mg-vit C 60 mg-biotin 300 mcg tablet (Ileana-[facility]) apixaban 5 mg tablet (Eliquis) 5 mg PO BID 01/17/25 01/17/25 Previous Rx's ?Medication ?Instructions ?Recorded metoprolol succinate 25 mg 25 mg PO QDAY 30 days #30 tabs 11/07/24 tablet,extended release 24 hr sevelamer carbonate 800 mg tablet 800 mg PO TID 1 month #90 tabs 01/30/25 Allergies Allergy/AdvReac Type Severity Reaction Status Date / Time No Known Allergies Allergy Verified 02/07/25 15:41 Review of Systems Review of Systems Systems Reviewed: All systems reviewed, normal except as documented Past Medical History Past Medical History CARDIAC: Positive Cardiac Disorders, Atrial Fibrillation, Hypercholesterolemia, Congestive Heart Failure and Hypertension GENITOURINARY: Positive Genitourinary Disorders, Renal Disease and Dialysis ENDOCRINE: Positive Endocrine Disorders and Diabetes Mellitus Type 2 OTHER HISTORY: Positive Falls Family History FAMILY HISTORY: Positive Family Cancer Social History SMOKING STATUS: Never smoker SUBSTANCE USE: does not use ALCOHOL: Never ED Exam General Limitations: Present no limitations General appearance: Present alert, in no apparent distress and other (chronically ill, generalized fatigue) Head Head exam: Present atraumatic, normocephalic and normal inspection Eye Eye exam: Present normal appearance, PERRL and EOMI ENT ENT exam: Present normal exam, normal oropharynx and mucous membranes moist Neck Neck exam: Present normal inspection, full ROM and trachea midline Chest Chest inspection: Present normal inspection and symmetric chest wall rise Respiratory Respiratory exam: Present normal lung sounds bilaterally Cardiovascular Cardiovascular exam: Present regular rate, normal rhythm and normal heart sounds Abdominal Exam Abdominal exam: Present soft and normal bowel sounds Extremities Exam Extremities exam: Present full ROM and other (mild right lower extremity swelling, compared to the left lower extremity) Back Exam Back exam: Present normal inspection and full ROM Neurological Exam Neurological exam: Present alert, oriented X3 and CN II-XII intact Psychiatric Psychiatric exam: Present normal affect and normal mood Skin Skin exam: Present warm, dry, intact and normal color Course Quality Measures none Orders Category Date Time Status Patient Condition Routine Admission 02/07/25 18:[address] in Observation Status Routine Admission 02/07/25 18:02 Active 24 HR Medical Restraints Q2HR Care 02/07/25 22:20 Completed Aspiration precautions ONCE Care 02/07/25 18:38 Active Bedside Blood Glucose Q2HX3 Care 02/07/25 17:10 Active Bedside Blood Glucose Q6HR Care 02/07/25 18:02 Active COVID-19 Screening Questionnaire NOW Care 02/07/25 17:50 Active EKG (ED ONLY) *Do not use* NOW Care 02/07/25 15:07 Completed Head of Bed Elevation NOW Care 02/07/25 22:06 Active Hemodialysis Urgent Care 02/07/25 17:23 Active Miscellaneous Nursing Order NOW Care 02/07/25 14:06 Active Neuro Check Q2H Care 02/07/25 22:06 Active Notify provider NEEDED Care 02/07/25 18:02 Active Nurse Swallow Screen X1 Care 02/07/25 18:38 Active Obtain weight NOW Care 02/07/25 18:02 Active SCD [Sequential Compression Device] QSHIFT Care 02/07/25 18:02 Active Swallow Evaluation NEEDED Care 02/07/25 22:11 Active Vital Signs, Non-Routine Q4H Care 02/07/25 18:15 Ordered Vital Signs, Non-Routine Q4H Care 02/07/25 22:15 Ordered Consult to Nephrology Stat Cons 02/07/25 17:45 Ordered Consult to Neurology / Tele-Neurology Stat Cons 02/07/25 22:05 Active Referral Physical Therapy Stat Cons 02/07/25 22:11 Active Referral Speech Therapy Stat Cons 02/07/25 22:11 Active Diet Renal Diet 02/07/[address] angio stroke protocol Stat Exams 02/07/25 21:[address] stroke protocol Stat Exams 02/07/25 21:30 Completed CXR [XR chest 1V] Stat Exams 02/07/25 21:51 Completed EKG (ED Only) Stat Exams 02/07/25 15:07 Draft US venous doppler LE RT Stat Exams 02/07/25 15:08 Completed Ammonia Stat Lab 02/07/25 22:03 Completed Blood Culture (Lab) Stat Lab 02/07/25 22:38 Received CBC AM DRAW Lab 02/08/25 04:19 Completed CBC AM DRAW Lab 02/09/25 05:00 Ordered CBC AM DRAW Lab 02/10/25 05:00 Ordered CBC AM DRAW Lab 02/11/25 05:00 Ordered CBC AM DRAW Lab 02/12/25 05:00 Ordered CBC AM DRAW Lab 02/13/25 05:00 Ordered CBC Stat Lab 02/07/25 15:30 Completed CBC Stat Lab 02/07/25 21:20 Completed CMP [Comprehensive Metabolic Panel] AM DRAW Lab 02/08/25 04:19 Completed CMP [Comprehensive Metabolic Panel] AM DRAW Lab 02/09/25 05:00 Ordered CMP [Comprehensive Metabolic Panel] AM DRAW Lab 02/10/25 05:00 Ordered CMP [Comprehensive Metabolic Panel] AM DRAW Lab 02/11/25 05:00 Ordered CMP [Comprehensive Metabolic Panel] AM DRAW Lab 02/12/25 05:00 Ordered CMP [Comprehensive Metabolic Panel] AM DRAW Lab 02/13/25 05:00 Ordered CMP [Comprehensive Metabolic Panel] Stat Lab 02/07/25 15:30 Completed CMP [Comprehensive Metabolic Panel] Stat Lab 02/07/25 18:05 Completed CMP [Comprehensive Metabolic Panel] Stat Lab 02/07/25 21:20 Completed Creatine Kinase Stat Lab 02/07/25 22:03 Completed Hemoglobin A1C [Glycohemoglobin w (eAG)] AM DRAW Lab 02/08/25 04:19 Completed Lactate (Lactic Acid) Stat Lab 02/07/25 21:20 Completed MRSA Nasal Screen Urgent Lab 02/07/25 22:50 Received Magnesium AM DRAW Lab 02/08/25 04:19 Completed Magnesium AM DRAW Lab 02/09/25 05:00 Ordered Magnesium AM DRAW Lab 02/10/25 05:00 Ordered Magnesium AM DRAW Lab 02/11/25 05:00 Ordered Magnesium AM DRAW Lab 02/12/25 05:00 Ordered Magnesium AM DRAW Lab 02/13/25 05:00 Ordered PT [Prothrombin Time with INR] Stat Lab 02/07/25 15:30 Completed Phosphorous AM DRAW Lab 02/08/25 04:19 Completed Phosphorous AM DRAW Lab 02/09/25 05:00 Ordered Phosphorous AM DRAW Lab 02/10/25 05:00 Ordered Phosphorous AM DRAW Lab 02/11/25 05:00 Ordered Phosphorous AM DRAW Lab 02/12/25 05:00 Ordered Phosphorous AM DRAW Lab 02/13/25 05:00 Ordered Phosphorous Stat Lab 02/07/25 21:20 Completed Troponin I Stat Lab 02/07/25 21:20 Completed Urinalysis Stat Lab 02/07/25 22:06 Completed Urine Culture Stat Lab 02/07/25 22:06 Received VBG [Venous Blood Gas] Stat Lab 02/07/25 21:20 Completed Acetaminophen Tab [Tylenol ES Tab] Med 02/07/25 22:07 Active 500 mg PO Q4HR PRN Apixaban [Eliquis] Med 02/08/25 09:00 Active 5 mg PO BID Calcium Gluc/Ns 1000MG Ivpb [Calcium Gluc/Ns 1000mg Med 02/07/25 17:00 Discontinued Ivpb] 1,000 mg in 50 ml IV X1 Calcium Gluconate 10% Inj Med 02/07/25 17:00 Discontinued 1 gm IV X1 ONE Dextrose 50% Syr [D50w Syringe Abboject] Med 02/07/25 17:10 Discontinued 100 ml IV X1 ONE Dextrose 50% Syr [D50w Syringe Abboject] Med 02/07/25 18:14 Active 25 ml IV Q15MIN PRN Dextrose 50% Syr [D50w Syringe Abboject] Med 02/07/25 18:14 Active 50 ml IV Q15MIN PRN Gabapentin [Neurontin] Med 02/07/25 22:00 Hold 300 mg PO TID Glucagon Inj Med 02/07/25 17:10 Discontinued 1 mg IM Q15MIN PRN Glucagon Inj Med 02/07/25 18:14 Active 1 mg IM Q15MIN PRN Heparin* 1000 UNITS/ML- 10 ML [Heparin 1000 UNITS/ML- Med 02/07/25 19:42 Active 10 ML] 3,300 unit INDWELLCAT X1 PRN INSULIN LISPRO (AdmeLOG) [HumaLOG] Med 02/08/25 07:30 Discontinued See Protocol SC AC Insulin Regular Med 02/07/25 17:10 Discontinued 5 unit IV X1 ONE Metoprolol Succinate Xl [Toprol Xl] Med 02/08/25 09:00 Active 25 mg PO QDAY Pantoprazole [Protonix] Med 02/08/25 09:00 Active 40 mg PO QDAY Piper/Tazo Inj [Zosyn Inj] 3.375 gm Med 02/08/25 09:00 Active Sodium Chloride 0.9% (Pop) [NS 0.9% mini bag] 100 ml IV Q12HR Piper/Tazo Inj [Zosyn Inj] 4.5 gm Med 02/07/25 22:30 Discontinued Sodium Chloride 0.9% (Pop) [NS 0.9% mini bag] 100 ml IV X1 Sevelamer Carbonate [Renvela] Med 02/08/25 08:00 Active 800 mg PO TIDWM Sod Polystyrene Sulfon Susp [Kayexalate Susp] Med 02/07/25 17:09 Discontinued 15 gm PO X1 ONE Sodium Chloride 0.9% 250 ml [Ns] 250 ml Med 02/07/25 22:01 Discontinued IV 999 mls/hr Vancomycin Pharmacy to Dose Med 02/08/25 09:00 Active 1 each IV QDAY PRN Vancomycin/Ns 1 gm Ivpb 200 ml Med 02/07/25 22:15 Discontinued IV X1 cefTRIAXone [Rocephin] 1 gm Med 02/07/25 18:30 Discontinued SODIUM CHLORIDE 0.9% (Popper) [Ns 0.9% (P)] 50 ml IV QDAY Code Status Routine Oth 02/07/25 18:02 Ordered EKG (RT) Stat RT 02/07/25 21:16 Draft EKG (RT) Stat RT 02/07/25 21:18 Ordered Transfer Order Routine Transfer 02/07/25 21:59 Completed Vital Signs Vital signs: Vital Signs Temperature 98.7 F 02/07/25 15:18 Pulse Rate 89 02/07/25 15:18 Respiratory Rate 17 02/07/25 15:18 Blood Pressure 119/66 02/07/25 15:18 Pulse Oximetry (%) 98 02/07/25 15:18 Oxygen Delivery Method Room Air 02/07/25 15:18 Weakness MDM Narrative MDM Narrative:: I, Tabitha Mcgowan, am scribing for and in the presence of Dr. Beyer. Patient is a 59-year-old male with medical history notable for ESRD, hypertension presenting emergency department concerns for weakness, myalgias and having missed dialysis on 3 separate occasions. Initially longterm at that the patient was altered however patient on my assessment is GCS 15, moving all extremities, no focal neural deficits. Vital signs and exam as listed. Concern for metabolic disturbance, fluid overload, DVT of the right lower extremity. Ordered labs, EKG, right lower extremity ultrasound. Will consult patient's outpatient dietitian Dr. Garcia for dialysis. Ultrasound negative for DVT. Workup notable for elevated potassium 7.0. Ordered insulin dextrose calcium gluconate Kayexalate and albuterol. Also consulted patient's outpatient dietitian Dr. Garcia, will place emergent dialysis orders. Consulted hospitalist for admission given patient's severely elevated potassium. Patient data External records reviewed:: [facility] previous records and EMS form Clinical information provided by:: patient and EMS Social determinants that could affect healthcare access:: none Patient has the following chronic illnesses:: End-stage renal disease on dialysis, hypertension, diabetes mellitus type 2, and hyperlipidemia. Followed by outpatient dietitian Dr. Garcia. How is presenting disease/condition affected by chronic disease/condition?: exacerbated by Evaluation data The following diagnostics were reviewed and interpreted by me:: lab results, radiology exam(s) and EKG tracing(s) (My interpretation: EKG performed at 1554 hours, sinus rhythm, rate 89, prolonged DE intervals at 218, non specific ST-T wave changes, no cardiac alert) Lab and/or radiology exams considered but not ordered:: none Interpretation Summary: Procedure(s): US venous doppler LE RT Accession Number(s): [id number] cc: Kota Charles MD; Siena Beyer MD~ Examination: Duplex scan of the lower extremity, unilateral right Date and time of exam: February 07, 2025 1531 hours INDICATIONS: Right leg pain beginning one month ago Technique: Duplex scan of the extremity veins using B-mode/grayscale imaging and Doppler spectral analysis and color flow Attention is directed to internal echogenicity, compression and augmentation involving these veins, color flow assessment, spectral analysis Findings: Major deep venous structures in the extremity demonstrate normal course and caliber. There is no evidence of deep vein thrombosis. Normal color flow and spectral analysis Impression: Negative for DVT.. Dictated By: Kota Charles MD Medications / Prescriptions Medications or Prescriptions considered but not ordered:: none Medication administrations:: Medication Administration History Acetaminophen (Acetaminophen 500 Mg Tablet) 500 mg PO Q4HR PRN PRN Reason: fever > 100.5 Stop: 03/09/25 22:06 Apixaban (Apixaban 2.5 Mg Tablet) 5 mg PO BID ADRIANA Stop: 03/10/25 08:59 Dextrose (Dextrose 50%-Water Inj 50 Ml Syringe) 25 ml IV Q15MIN PRN PRN Reason: BG 50-70 responsive npo pt Stop: 03/09/25 18:13 Dextrose (Dextrose 50%-Water Inj 50 Ml Syringe) 50 ml IV Q15MIN PRN PRN Reason: BG <50 OR BG <70 & pt unresponsive Stop: 03/09/25 18:13 Gabapentin (Gabapentin 300 Mg Capsule) 300 mg PO TID ADRIANA Stop: 03/09/25 21:59 Glucagon (Glucagon Inj 1 Mg Vial) 1 mg IM Q15MIN PRN PRN Reason: BG <70, and no IV access Heparin Sodium (Porcine) (Heparin Sod Inj 1000 Unit/Ml Vial 10 Ml) 3,300 unit INDWELLCAT X1 PRN PRN Reason: DIALYSIS Stop: 02/21/25 19:41 Piperacillin Sod/Tazobactam (Sod 3.375 gm/ Sodium Chloride) 100 mls @ 25 mls/hr IV Q12HR ADRIANA Stop: 02/15/25 08:59 Norepinephrine/Dextrose (Levophed In D5w 8mg/250ml) 8 mg in 250 mls @ 6.244 mls/hr IV .Q24H PRN; Protocol PRN Reason: PER PROTOCOL Stop: 03/09/25 23:20 Last Titration: 02/08/25 01:00 Dose: 0 mcg/kg/min, 0 mls/hr Documented By: Titration: 02/08/25 00:00 Dose: 0.01 mcg/kg/min, 1.249 mls/hr Documented By: Titration: 02/07/25 23:40 Dose: 0.01 mcg/kg/min, 1.249 mls/hr Documented By: Titration: 02/07/25 23:35 Dose: 0.03 mcg/kg/min, 3.746 mls/hr Documented By: Admin: 02/07/25 23:23 Dose: 0.05 mcg/kg/min, 6.244 mls/hr Documented By: SOHAM Insulin Human Lispro (Insulin Lispro (Admelog) 1 Unit/0.01 Ml Unit) 0 unit SC Q6HR [facility]; Protocol Stop: 03/10/25 05:59 Last Admin: 02/08/25 06:50 Dose: Not Given Documented By: ROSSY Non-Admin Reason: Glucose, LOW Metoprolol Succinate (Metoprolol Succinate Xl 25 Mg Tabcr) 25 mg PO QDAY [facility] Stop: 03/10/25 08:59 Pantoprazole Sodium (Pantoprazole 40 Mg Tablet) 40 mg PO QDAY [facility] Stop: 03/10/25 08:59 Pharmacy Consult (Vancomycin Pharmacy To Dose 1 Each Each) 1 each IV QDAY PRN PRN Reason: PROTOCOL Stop: 03/10/25 08:59 Sevelamer Carbonate (Sevelamer Carbonate 800 Mg Tablet) 800 mg PO TIDWM [facility] Stop: 03/10/25 07:59 Discontinued Medications Calcium Gluconate (Calcium Gluconate 10% Inj 1 Gm/10 Ml Vial) 1 gm IV X1 ONE Stop: 02/07/25 17:01 Last Admin: 02/07/25 17:07 Dose: 1 gm Documented By: DO Dextrose (Dextrose 50%-Water Inj 50 Ml Syringe) 100 ml IV X1 ONE Stop: 02/07/25 17:11 Last Admin: 02/07/25 17:24 Dose: 100 ml Documented By: [facility] Comments: pushed over 4 minutes Glucagon (Glucagon Inj 1 Mg Vial) 1 mg IM Q15MIN PRN PRN Reason: BG <70, and no IV access Calcium Gluconate/Sodium Chloride (Calcium Gluc/Ns 1000mg Ivpb) 1,000 mg in 50 mls @ 50 mls/hr IV X1 ONE Stop: 02/07/25 17:59 Last Admin: 02/07/25 17:07 Dose: Not Given Documented By: DO Non-Admin Reason: Cancelled by Provider Ceftriaxone Sodium 1 gm/ (Sodium Chloride) 50 mls @ 100 mls/hr IV QDAY ADRIANA Stop: 02/13/25 18:29 Last Admin: 02/07/25 22:59 Dose: Not Given Documented By: ZEllis Non-Admin Reason: Discontinued Sodium Chloride (Ns) 250 mls @ 999 mls/hr IV .Q16M ONE Stop: 02/07/25 22:16 Last Admin: 02/07/25 22:55 Dose: 999 mls/hr Documented By: SOHAM Vancomycin/Sodium Chloride (Vancomycin/Ns 1 Gm Ivpb) 200 mls @ 120 mls/hr IV X1 ONE Stop: 02/07/25 23:54 Last Admin: 02/07/25 23:31 Dose: 120 mls/hr Documented By: SOHAM Comments: Premix bag not available. 250cc bag used, 50cc removed. Mixed vanco with 200mL bag. Double verified with DELIA PUGA. Piperacillin Sod/Tazobactam (Sod 4.5 gm/ Sodium Chloride) 100 mls @ 200 mls/hr IV X1 ONE Stop: 02/07/25 22:59 Last Admin: 02/07/25 22:53 Dose: 200 mls/hr Documented By: SOHAM Norepinephrine/Dextrose (Levophed In D5w 8mg/250ml) Confirm Administered Dose 8 mg in 250 mls @ ud IV .STK-MED ONE Stop: 02/07/25 23:08 Last Admin: 02/07/25 23:34 Dose: Not Given Documented By: ZEllis Non-Admin Reason: STOCK MED. Naloxone HCl 2 mg/ Dextrose 500 mls @ 10 mls/hr IV .Q24H [facility] Stop: 03/09/25 23:44 Last Admin: 02/07/25 23:50 Dose: Not Given Documented By: ZP Non-Admin Reason: Discontinued Insulin Human Lispro (Insulin Lispro (Admelog) 1 Unit/0.01 Ml Unit) 0 unit SC AC [facility]; Protocol Stop: 03/10/25 07:29 Insulin Human Regular (Insulin Hum Regular 1 Unit/0.01 Ml (Per Unit)) 5 unit IV X1 ONE Stop: 02/07/25 17:11 Last Admin: 02/07/25 17:29 Dose: 5 unit Documented By: SINCERE Co-signed By: SM Comments: pushed over 1 minute Naloxone HCl (Naloxone Inj 1 Mg/Ml Syringe 2 Ml) 2 mg IV X1 ONE Stop: 02/07/25 23:50 Last Admin: 02/08/25 00:04 Dose: Not Given Documented By: SOHAM Non-Admin Reason: Discontinued Naloxone HCl (Naloxone Inj 0.4 Mg/Ml Vial) 0.4 mg IV X1 ONE Stop: 02/08/25 00:16 Last Admin: 02/08/25 00:15 Dose: 0.4 mg Documented By: SOHAM Co-signed By: ROSSY Sodium Polystyrene Sulfonate (Sod Polystyrene Sulfon Susp 15 Gm/60 Ml Btl) 15 gm PO X1 ONE Stop: 02/07/25 17:10 Last Admin: 02/07/25 17:31 Dose: 15 gm Documented By: SINCERE Vancomycin HCl (Vancomycin Inj 1,000 Mg Vial) Confirm Administered Dose 1,000 mg .ROUTE .STK-MED ONE Stop: 02/07/25 22:51 Last Admin: 02/07/25 23:18 Dose: Not Given Documented By: SOHAM Non-Admin Reason: Override. see above if any Consultations Consultation(s) initiated? (list below): Yes Consultation #1 (Physician, Specialty, Details): Discussed test HPI, PMHx, lab, radiology results and/or management with Dr. Garcia. He will order dialysis and then repeat labs Time: 17:14 Diagnosis Weakness Differential Diagnosis: dehydration and other (uremia due to missed dialysis, electrolyte imbalance, hyperkalemia, and altered mental status secondary to metabolic derangement) Most likely diagnosis given after review of the tests above:: Hyperkalemia Admission Indicated Admission indicated?: indicated Admission Request Was there a request for admission?: Yes Admission Attestation Admission request attestation: Discussed case with resident from Hospitalist service regarding admission. Discussed patients ED course, exam findings, labs, and radiology results. The Hospitalist [agrees,] to accept the patient for admission. Disposition Plan Disposition Plan: Admit Critical Care Time Critical Care Time Critical Care Time: Yes Total Critical Care Time (min.): 40 Attestation: The high probability of sudden, clinically significant deterioration in the patient?s condition required the highest level of my preparedness to intervene urgently. The services I provided to this patient were to treat and/or prevent clinically significant deterioration. Services included the following: chart data review, reviewing nursing notes and/or old charts, documentation time, corporate travel consultant collaboration regarding findings and treatment options, medication orders and management, direct patient care, vital sign assessments and ordering, interpreting and reviewing diagnostic studies and lab tests. Aggregate critical care time includes only time during which I was engaged in work directly related to the patient?s care, as described above, whether at bedside or elsewhere in the Emergency Department. It did not include time spent performing other reported procedures or the services of residents, students, nurses or physician assistants. Discharge Plan Plan Patient Disposition: Admit Acute Care w/in Hospital Problem List Clinical Impression: ESRD (end stage renal disease), Acute pain of right lower extremity
--- NOTE | 2025-02-07 15:07 | EKG_ITS ---
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: : 1965 Requested By: Siena Aguilar Order Number: [id number] Reading MD: Siena Aguilar Measurements Intervals [place] Rate: 89 P: 56 VA: 218 QRS: 88 QRSD: 110 T: 21 QT: 352 QTc: 431 Interpretive Statements SINUS RHYTHM WITH FIRST DEGREE AV BLOCK ANTEROSEPTAL MYOCARDIAL INFARCTION , OF INDETERMINATE AGE [40+ ms Q WAVE IN V1-V4] MODERATE T-WAVE ABNORMALITY, CONSIDER INFERIOR ISCHEMIA [-0.1+ mV T-WAVE IN II/aVF] Compared to ECG 01/15/2025 11:26:34 First degree AV block now present Myocardial infarct finding still present T-wave abnormality still present Possible ischemia still present /store/S0/[id number]/ecg/[id number].pdf
--- NOTE | 2025-02-07 15:08 | XR_ITS ---
Examination: Duplex scan of the lower extremity, unilateral right Date and time of exam: February 07, 2025 1531 hours INDICATIONS: Right leg pain beginning one month ago Technique: Duplex scan of the extremity veins using B-mode/grayscale imaging and Doppler spectral analysis and color flow Attention is directed to internal echogenicity, compression and augmentation involving these veins, color flow assessment, spectral analysis Findings: Major deep venous structures in the extremity demonstrate normal course and caliber. There is no evidence of deep vein thrombosis. Normal color flow and spectral analysis Impression: Negative for DVT..
--- NOTE | 2025-02-07 15:20 | PC.NURSE ---
PT HERE WITH C/O GENERALIZED WEAKNESS, TODAY, TIGHT LEG PAIN ON AND OFF FOR 1 MONTH WORSE WHEN I GET DIALYSIS SO I DON'T GO. AND HAS MISSED 3 DIALYSIS APPOINTMENT x 1 WEEK.
--- NOTE | 2025-02-07 15:30 | PC.NURSE ---
ULTRASOUND IN ROOM SO EKG DELAYED
[2025-02-07 15:47] LABS: Basophils # (Auto) 0.1 Thou/mm3 (0.0-0.2); Basophils % (Auto) 1 % (0-2.5); Eosinophils # (Auto) 0.5 Thou/mm3 (0.0-0.5); Eosinophils % (Auto) 3 % (0-10); Hematocrit 27.5 % (41.0-53.0); Immature Granulocytes Auto 0.13 Thou/mm3 (0.00-0.00); Lymphocytes # (Auto) 0.9 Thou/mm3 (1.0-4.8); Lymphocytes % (Auto) 6 % (10-50); Mean Corpuscular HGB Conc 31.6 g/dl (31.0-37.0); Mean Corpuscular Hemoglobin 29.8 pg (25.0-35.0); Mean Corpuscular Volume 94 fL (80-100); Monocytes # (Auto) 1.2 Thou/mm3 (0.0-0.8); Monocytes % (Auto) 7 % (0-12); Neutrophils # (Auto) 13.4 Thou/mm3 (1.8-7.7); Neutrophils % (Auto) 83 % (37-80); Nucleated Red Blood Cell # 0.00 Thou/mm3 (0.00-0.00); Nucleated Red Blood Cell % 0 /100 WBC (0); Platelet Count 435 Thou/mm3 (140-440); RDW Standard Deviation 62.4 fL (35.1-43.9); Red Blood Count 2.92 Miln/mm3 (4.50-5.90); White Blood Count 16.3 Thou/mm3 (3.8-10.6)
[2025-02-07 15:58] LABS: INR 1.2 (0.9-1.3); Prothrombin Time 12.5 Seconds (9.0-12.2)
[2025-02-07 16:13] LABS: Hemoglobin 8.7 g/dL (13.5-16.0)
[2025-02-07 16:56] LABS: Alanine Aminotransferase 36 U/L (10-49); Albumin, Serum 3.8 gm/dL (3.5-5.0); Albumin/Globulin Ratio 0.8 (1.2-2.2); Alkaline Phosphatase 145 U/L (46-116); Anion Gap 21 (7-16); Aspartate Amino Transferase 23 U/L (0-34); BUN/Creatinine Ratio 6 Ratio (12-20); Bilirubin,Total 0.6 mg/dL (0.3-1.2); Blood Urea Nitrogen 96 mg/dL (9-23); Calcium 9.3 mg/dL (8.3-10.6); Calcium (Corrected) 9.5 mg/dL (8.5-10.1); Carbon Dioxide 20.3 mMol/L (20.0-31.0); Chloride 98 mMol/L (98-107); Creatinine (Component) 15.4 mg/dL (0.6-1.3); Estimated Creatinine Clearance 4.0 mL/min (>60); Globulin 4.9 gm/dL (2.3-3.5); Glucose 120 mg/dL (74-106); Osmolality,Calculated 308 (275-295); Sodium 139 mMol/L (136-145); Total Protein 8.7 gm/dL (5.7-8.2); eGFR 3 See Note
[2025-02-07 16:59] LABS: Potassium 7.0 mMol/L (3.4-5.1)
[2025-02-07] MEDS: CALCIUM GLUCONATE 10% INJ 1 GM/10 ML VIAL IV (17:07)
[2025-02-07] MEDS: DEXTROSE 50%-WATER INJ 50 ML SYRINGE 100 ML IV (17:24)
[2025-02-07] MEDS: INSULIN HUM REGULAR 1 UNIT/0.01 ML (PER UNIT) 5 UNIT IV (17:29)
[2025-02-07] MEDS: SOD POLYSTYRENE SULFON SUSP 15 GM/60 ML BTL PO (17:31)
--- NOTE | 2025-02-07 17:49 | ESHP_ITS ---
<Statement entered by Sheba Kumar MD - 02/11/25 08:03> I reviewed above note and agree with findings and plans. I have also personally examined the patient with medicine team and went over assessment and plan with medical team including record label internship and resident physician. <Statement entered by Marshall Conrad MD - 02/07/25 21:41> Patient seen and examined at bedside. I discussed and supervised with the record label internship physician who took care of this patient. I personally saw and examined the patient. I agree with most of the assessment and plan. Patient presented after missing 1 week of hemodialysis. Labs significant for hyperkalemia 7.0 and uremia 96. Patient received kayexalate, insulin, and calcium gluconate in the ED. Taken for urgent hemodialysis, patient's director personal Dr. Garcia onboard. Patient mildly disoriented, suspect due to uremic encephalopathy, remains oriented to self, place and birthday. Conversational, follows commands. Continuing Rocephin for UTI. Plan of care discussed with attending Dr. Kumar. Marshall Conrad MD PGY-2 Documentation for date of: 02/07/25 HPI History of Present Illness History of present illness: 59-year-old male with a complex medical history including end-stage renal disease on HD (MWF), type 2 diabetes mellitus, hypertension, hyperlipidemia, and prior upper GI bleed, presents from [facility] with generalized weakness and missed dialysis. Per EMS, the patient was not confused during transport and stated he was willing to resume dialysis. However, during interview, the patient displayed signs of confusion and tangential speech, with difficulty completing thoughts and inconsistent responses. He states that he came to the hospital ?because my son told me I have to? and that he has not been receiving dialysis recently due to leg pain when lying down. He was unclear on the last date of dialysis and unable to recall recent events. He denied chest pain, shortness of breath, dizziness, syncope, fevers, nausea, vomiting, or melena. He reports some mild right leg pain when lying in a certain position but denied bilateral symptoms. He is alert to self and location but not to time. He endorses making ?a little urine? despite ESRD. Nephrology was consulted and the patient was sent for urgent dialysis at the end of the interview. ED Course: In the ED, he was found to be alert but tangential and intermittently disoriented, oriented only to self and location but not time. He was conversational but demonstrated disorganized thought processes and poor insight. No acute complaints of chest pain, shortness of breath, fever, or dizziness were reported. He did endorse mild right leg pain with certain positions but denied bilateral symptoms. Initial labs: * Hyperkalemia (K 7.0) * Uremia (Cr 15.4, significantly up from 6.1 at discharge 01/30/25) * Elevated WBC (16.3), raising concern for infection * Anemia (Hgb 8.7, stable from prior admission) Venous Doppler of the right lower extremity was performed due to leg pain and swelling ? results were negative for DVT. EKG showed sinus rhythm at 89 bpm, first-degree AV block (SC 218 ms), and evidence of an anteroseptal infarct of indeterminate age. Review of Systems: * General: Fatigue, weakness * Cardiac: Denies chest pain or palpitations * Respiratory: Denies shortness of breath or orthopnea * GI: Denies nausea, vomiting, hematemesis, melena * : Reports minimal urine output * Neuro: Reports right leg pain when lying flat; speech and thought process disorganized * Psych: Reports son encouraged him to come in for care Past Medical History: * End-stage renal disease on HD (MWF) * Type 2 diabetes mellitus * Hypertension * Hyperlipidemia * Paroxysmal atrial fibrillation * History of hemorrhagic gastritis and duodenitis * History of Enterobacter cloacae bacteremia and UTI * Recent acute encephalopathy (uremic/metabolic) Surgical History: None documented Family History: Positive for cancer (exact relation/type unknown) Social History: Never smoker, Denies alcohol or drug use, Lives at SNF, Limited health literacy and insight into condition. Allergies: No known drug allergies Exam Vital Signs Temp Pulse Resp BP Pulse Ox O2 Del Method 98.2 F 87 19 134/78 H 97 Room Air 02/07/25 16:04 02/07/25 16:04 02/07/25 16:04 02/07/25 16:04 02/07/25 16:04 02/07/25 16:04 Narrative Exam General: Alert, chronically ill-appearing male, intermittently confused, cooperative HEENT: Normocephalic, atraumatic, mucous membranes moist Eyes: PERRL, EOMI Neck: Supple, no JVD, trachea midline Cardiac: RRR, no murmurs, rubs, or gallops Respiratory: CTAB, no rales/wheezes Abdomen: Soft, non-tender, nondistended, normal bowel sounds Extremities: Full ROM, mild right lower extremity swelling Neuro: Alert to self and place, not oriented to time, follows some commands, speech tangential, CN II-XII grossly intact Psych: Disorganized thought process, mood flat Skin: Warm, dry, intact Results: Labs 02/07/25 15:30 02/07/25 18:05 Labs: Short CBC 02/07/25 Range/Units 15:30 WBC 16.3 H (3.8-10.6) Thou/mm3 Hgb 8.7 L (13.5-16.0) g/dL Hct 27.5 L (41.0-53.0) % Plt Count 435 D (140-440) Thou/mm3 BMP 02/07/25 15:30 Sodium 139 Potassium 7.0 H* Chloride 98 Carbon Dioxide 20.3 BUN 96 H Creatinine 15.4 H* Glucose 120 H Calcium 9.3 Liver Function 02/07/25 Range/Units 15:30 Total Bilirubin 0.6 (0.3-1.2) mg/dL AST 23 (0-34) U/L ALT 36 (10-49) U/L Alkaline Phosphatase 145 H (46-116) U/L Albumin 3.8 (3.5-5.0) gm/dL Quality Measures Quality Measures VTE prophylaxis Medications Home Medications and Allergies Home Medications ?Medication ?Instructions ?Recorded ?Confirmed ?Type sucroferric oxyhydroxide 500 mg 500 mg PO TID 11/03/24 01/20/25 History chewable tablet (Velphoro) vitamin B comp no.3-folic acid 1 1 tab PO .QD 11/03/24 01/20/25 History mg-vit C 60 mg-biotin 300 mcg tablet (Ileana-Koko Rx) apixaban 5 mg tablet (Eliquis) 5 mg PO BID 01/17/25 History Allergies Allergy/AdvReac Type Severity Reaction Status Date / Time No Known Allergies Allergy Verified 02/07/25 15:41 Visit Medications Glucagon (Glucagon Inj 1 Mg Vial) 1 mg IM Q15MIN PRN PRN Reason: BG <70, and no IV access Calcium Gluconate/Sodium Chloride (Calcium Gluc/Ns 1000mg Ivpb) 1,000 mg in 50 mls @ 50 mls/hr IV X1 ONE Stop: 02/07/25 17:59 Last Admin: 02/07/25 17:07 Dose: Not Given Discontinued Medications Calcium Gluconate (Calcium Gluconate 10% Inj 1 Gm/10 Ml Vial) 1 gm IV X1 ONE Stop: 02/07/25 17:01 Last Admin: 02/07/25 17:07 Dose: 1 gm Dextrose (Dextrose 50%-Water Inj 50 Ml Syringe) 100 ml IV X1 ONE Stop: 02/07/25 17:11 Last Admin: 02/07/25 17:24 Dose: 100 ml Insulin Human Regular (Insulin Hum Regular 1 Unit/0.01 Ml (Per Unit)) 5 unit IV X1 ONE Stop: 02/07/25 17:11 Last Admin: 02/07/25 17:29 Dose: 5 unit Sodium Polystyrene Sulfonate (Sod Polystyrene Sulfon Susp 15 Gm/60 Ml Btl) 15 gm PO X1 ONE Stop: 02/07/25 17:10 Last Admin: 02/07/25 17:31 Dose: 15 gm Assessment & Plan Plan 59M with ESRD, hx of AFib, DM2, HTN, HLD, recently hospitalized for uremic encephalopathy, bacteremia, and GI bleed, now re-admitted with missed dialysis, hyperkalemia, and altered mental status. #ESRD on HD ? Missed dialysis sessions again Cr 15.4, K 7.0 on admission Likely etiology of current symptoms and confusion Plan: * Consult nephrology (pt followed by Dr. Garcia) * Arrange urgent HD today * Continue MWF HD schedule * Hold gabapentin (renally cleared; may worsen encephalopathy) * Hold Sevelamer until phosphate reassessed post-HD * Hold renally cleared meds #Hyperkalemia Likely due to missed HD Plan: * Will correct with HD * Monitor cardiac rhythm on telemetry * Repeat CMP post-HD #Altered Mental Status #Acute Encephalopathy Likely uremic/metabolic, worsened by HD non-compliance No signs of stroke or infection; CT not needed currently Patient alert to self/place, not time; disorganized speech Plan: * Monitor mental status closely * Reassess post-HD * Rule out infection/metabolic contributors * Hold gabapentin * Use hydrocodone/acetaminophen cautiously only if pain is severe and patient is alert * Avoid [employer] depressants #Paroxysmal Atrial Fibrillation with history of CHF Sinus rhythm today, first-degree AV block on EKG [id number] = 4, HAS-BLED = 3 Plan: * Continue Eliquis 5 mg BID (if not contraindicated by HD) * Monitor rate/rhythm, maintain electrolytes #Anemia of Chronic Disease (Hgb 8.7) Stable from last discharge Likely multifactorial (ESRD + prior GI blood loss Plan: * Trend CBC * Monitor for melena * Hold anticoagulation if actively bleeding * Consider monitoring for occult bleeding #Right Lower Extremity Pain Negative DVT Doppler Plan: * Continue lidocaine patch a.m. * Use diclofenac gel as needed if no worsening renal function * Avoid systemic NSAIDs #History of UTI with bacteremia Now WBC 16.3 Ongoing ceftriaxone from [facility] for 7 days started on 02/05 Plan: * Continue ceftriaxone 1 g IM daily (day 3 out of 7) * Monitor for fevers/sepsis * Monitor WBC and vitals #T2DM, HTN, HLD, constipation, chronic pain neuropathy? Chronic Plan: * Reconcile home meds post-HD * Continue statin * Restart metoprolol if tolerated * Hold gabapentin for now Health Maintenance: Code status: DNR Diet: Renal diet GI prophylaxis: Protonix DVT prophylaxis: Eliquis starting tomorrow Disposition: Admitted to telemetry Social: SNF resident, poor insight, poor med compliance
[2025-02-07 18:44] LABS: Alanine Aminotransferase 31 U/L (10-49); Albumin, Serum 3.6 gm/dL (3.5-5.0); Albumin/Globulin Ratio 0.8 (1.2-2.2); Alkaline Phosphatase 131 U/L (46-116); Anion Gap 20 (7-16); Aspartate Amino Transferase 22 U/L (0-34); BUN/Creatinine Ratio 7 Ratio (12-20); Bilirubin,Total 0.6 mg/dL (0.3-1.2); Blood Urea Nitrogen 99 mg/dL (9-23); Calcium 9.8 mg/dL (8.3-10.6); Calcium (Corrected) 10.1 mg/dL (8.5-10.1); Carbon Dioxide 18.5 mMol/L (20.0-31.0); Chloride 99 mMol/L (98-107); Creatinine (Component) 14.9 mg/dL (0.6-1.3); Estimated Creatinine Clearance 4.2 mL/min (>60); Globulin 4.3 gm/dL (2.3-3.5); Glucose 238 mg/dL (74-106); Osmolality,Calculated 312 (275-295); Sodium 137 mMol/L (136-145); Total Protein 7.9 gm/dL (5.7-8.2); eGFR 3 See Note
[2025-02-07 18:46] LABS: Potassium 6.5 mMol/L (3.4-5.1)
--- NOTE | 2025-02-07 21:16 | EKG_ITS ---
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
--- NOTE | 2025-02-07 21:30 | XR_ITS ---
Examination: CT brain head without contrast. 2-D sagittal coronal reconstructions Date and time of exam:February 07, 2025 2133 hours Comparison January 22, 2025 INDICATIONS: Stroke alert, unresponsive during dialysis beginning 30 minutes ago CTDI: vol (mGy):51.3 DLP: (mGycm):1030 Technique: Multiple CT axial sections of the brain have been obtained, 5 mm slice thickness. Contrast has not been administered. 2-D sagittal, coronal reconstructions have been obtained Low dose protocols were performed. One or more of the following dose reduction techniques were used; automated exposure control, adjustment of the mA and/or KV according to patient size, use of iterative reconstruction technique. Findings: No significant ventricular enlargement. Intra-axial or extra-axial hemorrhage density is not seen. No mass effect or midline shift Basal cisterns are not remarkable. Fourth ventricle is midline. Cranial vault intact. Impression: Negative for acute hemorrhage, mass effect or midline shift
--- NOTE | 2025-02-07 21:30 | XR_ITS ---
Examination: CTA carotids with intravenous contrast CTA brain, head with intravenous contrast. 2-D sagittal, coronal reconstructions. 3-D reconstructions. Exam date and time: 03/12/2024 2156 hours INDICATIONS: Stroke alert, onset focal neurologic deficit today CTDI: vol (mGy) 58.20 DLP: (mGycm) 599 Technique: Multiple CTA axial brain, head carotid images post intravenous contrast injection 75 cc, Isovue-370. 2-D sagittal, coronal reconstructions. 3-D reconstructions, 3-D post processing including vascular maximum intensity projection images. Low dose protocols were performed. One or more of the following dose reduction techniques were used; automated exposure control, adjustment of the mA and/or KV according to patient size, use of iterative reconstruction technique. Findings: Moderate calcification right carotid bifurcation but no critical right common carotid artery carotid bifurcation or internal carotid artery calcification Moderate calcification of the carotid bifurcation, 20-40% stenosis left carotid bifurcation left origin internal carotid artery Dominant left vertebral artery, diffusely small right vertebral artery but no critical stenoses No cerebral large vessel arterial occlusions or thrombus IMPRESSION: No significant carotid or vertebral artery stenoses No cerebral arterial flow to occlusions or thrombus
--- NOTE | 2025-02-07 21:43 | PC.NURSE ---
around 2107 rapid response team called due to patient became lethargic and unresponsive. VS BP 122/57, HR 80, Temp 96.8, Sating at 95% on O2. BS check 120.
[2025-02-07 21:44] LABS: Lactate (Lactic Acid) 1.8 mMol/L (0.4-2.0)
[2025-02-07 21:45] LABS: Base Excess, Venous 2 (-3-3); O2 Saturation, Venous 98 % (96-97); PCO2, Venous 33 mmHg (36-56); PO2, Venous 102 mmHg (15-58); pH, Venous 7.50 (7.33-7.66)
[2025-02-07 21:47] LABS: Basophils # (Auto) 0.1 Thou/mm3 (0.0-0.2); Basophils % (Auto) 1 % (0-2.5); Eosinophils # (Auto) 0.4 Thou/mm3 (0.0-0.5); Eosinophils % (Auto) 2 % (0-10); Hematocrit 24.8 % (41.0-53.0); Immature Granulocytes Auto 0.27 Thou/mm3 (0.00-0.00); Lymphocytes # (Auto) 0.9 Thou/mm3 (1.0-4.8); Lymphocytes % (Auto) 5 % (10-50); Mean Corpuscular HGB Conc 32.7 g/dl (31.0-37.0); Mean Corpuscular Hemoglobin 30.0 pg (25.0-35.0); Mean Corpuscular Volume 92 fL (80-100); Monocytes # (Auto) 1.5 Thou/mm3 (0.0-0.8); Monocytes % (Auto) 8 % (0-12); Neutrophils # (Auto) 15.3 Thou/mm3 (1.8-7.7); Neutrophils % (Auto) 83 % (37-80); Nucleated Red Blood Cell # 0.00 Thou/mm3 (0.00-0.00); Nucleated Red Blood Cell % 0 /100 WBC (0); Platelet Count 397 Thou/mm3 (140-440); RDW Standard Deviation 63.3 fL (35.1-43.9); Red Blood Count 2.70 Miln/mm3 (4.50-5.90); White Blood Count 18.5 Thou/mm3 (3.8-10.6)
[2025-02-07 21:49] LABS: Hemoglobin 8.1 g/dL (13.5-16.0)
--- NOTE | 2025-02-07 21:51 | XR_ITS ---
Examination: AP chest single view TECHNIQUE: AP portable semiupright chest single view Date and time: February 07, 2025 10 0 9:00 PM Comparison January 15, 2025 INDICATIONS: Stroke alert today FINDINGS: Mild, subclinical No aspiration pneumonia Right internal jugular dialysis catheter tips SVC satisfactory position IMPRESSION: No aspiration pneumonia or pulmonary edema
--- NOTE | 2025-02-07 21:53 | EVENTNT_ITS ---
<Statement entered by Suleman Márquez MD - 02/08/25 00:54> Patient seen and assessed during rapid with attending Dr. Alejo. During rapid response; vitals were stable but patient was unresponsive as noted in the note below. During stroke alert; teleneurology was consulted and assessed the patient. Recommendations are highlighted in the note in the EMR. Patient became more responsive after being moved to ICU and once small catheter was inserted. Will continue to monitor the patient for any acute changes and upgrade to ICU. Suleman Márquez DO PGY-2 Internal Medicine - GME Documentation for date of: 02/07/25 Event Note Event Note: Rapid response was called at 2108 due to patient being unresponsive towards end of hemodialysis session. Hemodialysis nurse noted that the patient was sweating and not responding to verbal stimulus. Patient was unarousable to sternal rub, but had 2+ pulses and stable vitals. Glucose 120 and EKG sinus rhythm. Patient was upgraded to stroke alert at [address] head was performed and then the patient was transferred to the ICU. Patient became responsive at 2147. Chest x-ray and bladder ultrasound were ordered. About 800 cc was noted in the bladder. Patient produced about 2 L of purplish brown urine after placement of Small. UA and urine culture were ordered, then started vancomycin and Zosyn.
--- NOTE | 2025-02-07 21:53 | PC.NURSE ---
according to dialysis nurse, pt become unresponsive during dialysis. this rn met pt at ct. pt was unresponsive. blood sugar was taken 119. teleneuro was activated. pts vital signs: bp of 133/65, heart rate of 87, 94% on 6L, and 14 respirations.
--- NOTE | 2025-02-07 21:54 | ESCONSULT_ITS ---
Tele Neuro Consultation Consultation Date 02/07/25 Most Recent Vital Signs Last Vital Signs Temp 96.8 F 02/07/25 21:48 Pulse 93 02/07/25 21:48 Resp 18 02/07/25 21:48 BP 110/54 L 02/07/25 21:48 Pulse Ox 95 02/07/25 21:48 O2 Del Method Room Air 02/07/25 18:06 O2 Flow Rate 15 02/07/25 21:48 Laboratory-Coagulation Panel PT 12.5 Seconds (9.0-12.2) H 02/07/25 15:30 INR 1.2 (0.9-1.3) 02/07/25 15:30 Consultation Narrative [facility] Tele[facility]rology Consult [facility] Patient Name:???jaime skinner Date of :???1965 Identification Number:??? Date of Service:???02/07/2025 21:23:25 Diagnosis:?G93.49 - Encephalopathy Multifactorial Impression: ?Patient is a 59-year-old gentleman past medical history significant for end-stage renal disease, diabetes, hypertension and hyperlipidemia who was admitted with generalized weakness and confusion. ? ?- Treat Underlying Infection, severe electrolyte, acid base, endocrine or circulatory disturbances ?- Avoid sedating medication ?- Core temp > 36 degrees celsius ?- MAP 65 - 70 ?- Olin appropriate supportive measures ?- Adequate hydration and oxygenation, minimize physical restraints ?- Orienting stimuli to avoid day and night confusion ?- If symptoms do no resolve consider MRI brain ? ? Our recommendations are outlined below. Recommendations: ? Stroke/Telemetry Floor ? Neuro Checks (Q2) ? Bedside Swallow Eval ? DVT Prophylaxis ? IV Fluids, Normal Saline ? Head of Bed 30 Degrees ? Euglycemia and Avoid Hyperthermia (PRN Acetaminophen) Sign Out: ? Discussed with Rapid Response Team Advanced Imaging:Advanced Imaging Deferred because: Stroke not suspected with clinical presentation and exam Metrics: Last Known Well: 02/07/2025 17:30:21 Dispatch Time: 02/07/2025 21:23:25 Initial Response Time: 02/07/2025 21:34:13Symptoms: unresponsive. Initial patient interaction: 02/07/2025 21:38:31 NIHSS Assessment Completed: 02/07/2025 21:50:11Patient is not a candidate for Thrombolytic. Thrombolytic Medical Decision: 02/07/2025 21:50:14Patient was not deemed candidate for Thrombolytic because of following reasons: other diagnosis suspected Encephalopathy. CT Head: I personally reviewed all the CT images that were available to me and it showed: no acute abnormalities Primary Provider Notified of Diagnostic Impression and Management Plan on: 02/07/2025 21:53:17 Spoke With: Rapid Response Team Able to Reach 02/07/2025 21:53:17 History of Present Illness:Patient is a 59 year old Male. Inpatient stroke alert was called for symptoms of unresponsive. Patient is a 59-year-old gentleman past medical history significant for end- stage renal disease, diabetes, hypertension and hyperlipidemia who was admitted with generalized weakness and confusion. Patient missed dialysis. Neurology is consulted for confusion. ? Past Medical History: ?Hypertension ?Diabetes Mellitus ?Hyperlipidemia Medications: Anticoagulant use:??Yes?Eliquis No Antiplatelet use Reviewed EMR for current medications Allergies:? Reviewed Social History: Unable To Obtain Due To Patient Status :?Patient Is Confused Family History: There is no family history of premature cerebrovascular disease pertinent to th is consultation ROS : 14 Points Review of Systems was performed and was negative except mentioned in HPI. Past Surgical History: There Is No Surgical History Contributory To Today?s Visit ? Examination: BP(112/57),?Pulse(94),?Blood Glucose(122) 1A: Level of Consciousness - Requires repeated stimulation to arouse?+ 2 1B: Ask Month and Age - Could Not Answer Either Question Correctly?+ 2 1C: Blink Eyes & Squeeze Hands - Performs 0 Tasks?+ 2 2: Test Horizontal Extraocular Movements - Normal?+ 0 3: Test Visual Enciso - No Visual Loss?+ 0 4: Test Facial Palsy (Use Grimace if Obtunded) - Normal symmetry?+ 0 5A: Test Left Arm Motor Drift - Some Effort Against [place]?+ 2 5B: Test Right Arm Motor Drift - Some Effort Against [place]?+ 2 6A: Test Left Leg Motor Drift - No Effort Against [place]?+ 3 6B: Test Right Leg Motor Drift - No Effort Against [place]?+ 3 7: Test Limb Ataxia (FNF/Heel-Pantoja) - No Ataxia?+ 0 8: Test Sensation - Normal; No sensory loss?+ 0 9: Test Language/Aphasia - Mute/Global Aphasia: No Usable Speech/Auditory Comprehension?+ 3 10: Test Dysarthria - Severe Dysarthria: Unintelligble Slurring or Out of Proportion to Aphasia?+ 2 11: Test Extinction/Inattention - No abnormality?+ 0 NIHSS Score:?21 Pre-Morbid Modified [place] Scale:0 Points = No symptoms at all Spoke with :?Rapid Response Team This consult was conducted in real time using interactive audio and video technology. Patient was informed of the technology being used for this visit and agreed to proceed. Patient located in hospital and provider located at home/office setting. Patient is being evaluated for possible acute neurologic impairment and high probability of imminent or life-threatening deterioration. I spent total of 37 minutes providing care to this patient, including time for face to face visit via telemedicine, review of medical records, imaging studies and discussion of findings with providers, the patient and/or family. Dr Gen Mcgraw [facility] For Inpatient follow-up with [facility] physician please call [facility] at . As we are not an outpatient service for any post hospital discharge needs please contact the hospital for assistance. If you have any questions for the [facility] physicians or need to reconsult for clinical or diagnostic changes please contact us via [facility] at .
[2025-02-07 22:23] LABS: Collection Type, Urine Catheter; Squamous Epithelial Cell,Urine 0 /hpf (0-5)
[2025-02-07 22:24] LABS: Alanine Aminotransferase 38 U/L (10-49); Albumin, Serum 3.8 gm/dL (3.5-5.0); Albumin/Globulin Ratio 0.8 (1.2-2.2); Alkaline Phosphatase 140 U/L (46-116); Anion Gap 17 (7-16); Aspartate Amino Transferase 33 U/L (0-34); BUN/Creatinine Ratio 5 Ratio (12-20); Bilirubin,Total 0.7 mg/dL (0.3-1.2); Blood Urea Nitrogen 35 mg/dL (9-23); Calcium 9.3 mg/dL (8.3-10.6); Calcium (Corrected) 9.5 mg/dL (8.5-10.1); Carbon Dioxide 22.9 mMol/L (20.0-31.0); Chloride 99 mMol/L (98-107); Creatinine (Component) 6.6 mg/dL (0.6-1.3); Globulin 4.8 gm/dL (2.3-3.5); Glucose 118 mg/dL (74-106); Osmolality,Calculated 286 (275-295); Phosphorous 5.3 mg/dL (2.4-5.1); Potassium 4.2 mMol/L (3.4-5.1); Sodium 139 mMol/L (136-145); Total Protein 8.6 gm/dL (5.7-8.2); eGFR 9 See Note
[2025-02-07 22:35] LABS: Estimated Creatinine Clearance 10.3 mL/min (>60)
[2025-02-07 22:37] LABS: Troponin I 0.527 ng/mL (0.0-0.045)
[2025-02-07 22:38] LABS: Creatine Kinase 23 U/L (34-171)
--- NOTE | 2025-02-07 22:40 | PD.RESCONSUL ---
HPI Data of Consult Requesting Physician: Sheba Kumar MD Admitting Provider: Sheba Kumar MD Attending Provider: Sheba Kumar MD Primary Care Provider: Physician No Primary/Family Consult Narrative Reason for consult: AMS History of present illness: Patient is a 59 years old male with past medical history of end-stage renal disease on HD (M/W/F), type 2 diabetes mellitus, hypertension, hyperlipidemia, and prior upper GI bleed, presented from SNF with generalized weakness and missed dialysis, was admitted as observational for emergent hemodialysis by primary team. He was alert to self and place but not to time, he wasn't lethargic. Initial labs on admission to the hospital showed severe hyperkalemia and significantly elevated BUN and creatinine. EKG showed first-degree AV block with nonspecific ST segment changes, QTc 431. Lower extremities ultrasound showed no DVT. Patient was given 5 units of insulin, sevelamer and calcium gluconate IV in the emergency room. He was then taken for emergent hemodialysis. While undergoing hemodialysis rapid response was called due to patient being unresponsive towards the end of hemodialysis session. Hemodialysis nurse noted that the patient was sweating and not responding to verbal stimulus. Patient was unarousable to sternal rub, but had good pulses and stable vitals. Due to rapid detoriation of his mental status stroke alert was called, teleneuro was consulted. Patient underwent head CT and CTA showing no hemorrhage, mass effect or arterial stenosis or occlusion. Repeat EKG showed QTc 460. Patient's code status DNR, he was able to protect his airways. Repeat labs showed worsening leukocytosis, significantly improved potassium and creatinine, lactic acid 1.8, phosphorus 5.3, ammonia below 10, total CK23, troponin I 0.527. Bladder scan was performed showing more than 800 cc of urine, catheter was placed with evacuation of dark brown urine. Patient's mental status has improved significantly. Subsequent urinalysis showed turbid urine with pH 7.5, protein 2+, glucose 1+, blood 3+, RBCs 786, WBCs 1251, rare bacteria, positive leukocyte esterase. Patient was started on IV vancomycin and Zosyn and was upgraded to ICU for further management. cc:: cc: Sheba Kumar MD Review of Systems Review of Systems ROS Unobtainable: unobtainable due to mental status Exam Vital Signs Temp Pulse Resp BP Pulse Ox O2 Del Method O2 Flow Rate 96.8 F 93 18 110/54 L 95 Room Air 15 02/07/25 21:48 02/07/25 21:48 02/07/25 21:48 02/07/25 21:48 02/07/25 21:48 02/07/25 18:06 02/07/25 21:48 Narrative Exam Gen: Well-developed and well-nourished male, unresponsive. HEENT: NCAT, pupils are constricted and reactive to light, MMM, anicteric conjunctivae. CVS: normal S1 and S2. Regular tachycardia. No M/R/G. Resp: decreased BS B/L bases. No rhonchi, rales, crackles or wheezing. Abd: soft, obese, non-tender, non-distended. BS+ in all 4 quadrants. MSK: Good ROM in BUE & BLE. No edema or rash. Neuro: limited exam due to mental status. Results Labs 02/07/25 21:20 02/07/25 21:20 Labs: Short CBC 02/07/25 02/07/25 Range/Units 15:30 21:20 WBC 16.3 H 18.5 H (3.8-10.6) Thou/mm3 Hgb 8.7 L 8.1 L (13.5-16.0) g/dL Hct 27.5 L 24.8 L (41.0-53.0) % Plt Count 435 D 397 D (140-440) Thou/mm3 BMP 02/07/25 02/07/25 02/07/25 15:30 18:05 21:20 Sodium 139 137 139 Potassium 7.0 H* 6.5 H* D 4.2 D Chloride 98 99 99 Carbon Dioxide 20.3 18.5 L 22.9 BUN 96 H 99 H 35 H Creatinine 15.4 H* 14.9 H* D 6.6 H* D Glucose 120 H 238 H D 118 H D Calcium 9.3 9.8 9.3 Cardiac Enzymes 02/07/25 02/07/25 Range/Units 21:20 22:03 Total Creatine Kinase 23 L (34-171) U/L Troponin I 0.527 H* (0.0-0.045) ng/mL Liver Function 02/07/25 02/07/25 02/07/25 Range/Units 15:30 18:05 21:20 Total Bilirubin 0.6 0.6 0.7 (0.3-1.2) mg/dL AST 23 22 33 (0-34) U/L ALT 36 31 38 (10-49) U/L Alkaline Phosphatase 145 H 131 H 140 H (46-116) U/L Albumin 3.8 3.6 3.8 (3.5-5.0) gm/dL ABG Interpretation ABG results: 02/07/25 21:20 VBG pH 7.50 VBG pCO2 33 L VBG pO2 102 H VBG Base Excess 2 Quality Measures Quality Measures VTE prophylaxis Medications Home Medications and Allergies Home Medications ?Medication ?Instructions ?Recorded ?Confirmed ?Type sucroferric oxyhydroxide 500 mg 500 mg PO TID 11/03/24 01/20/25 History chewable tablet (Velphoro) vitamin B comp no.3-folic acid 1 1 tab PO .QD 11/03/24 01/20/25 History mg-vit C 60 mg-biotin 300 mcg tablet (Ileana-Koko Rx) apixaban 5 mg tablet (Eliquis) 5 mg PO BID 01/17/25 01/17/25 History Allergies Allergy/AdvReac Type Severity Reaction Status Date / Time No Known Allergies Allergy Verified 02/07/25 15:41 Visit Medications Acetaminophen (Acetaminophen 500 Mg Tablet) 500 mg PO Q4HR PRN PRN Reason: fever > 100.5 Stop: 03/09/25 22:06 Apixaban (Apixaban 2.5 Mg Tablet) 5 mg PO BID ADRIANA Stop: 03/10/25 08:59 Dextrose (Dextrose 50%-Water Inj 50 Ml Syringe) 25 ml IV Q15MIN PRN PRN Reason: BG 50-70 responsive npo pt Stop: 03/09/25 18:13 Dextrose (Dextrose 50%-Water Inj 50 Ml Syringe) 50 ml IV Q15MIN PRN PRN Reason: BG <50 OR BG <70 & pt unresponsive Stop: 03/09/25 18:13 Gabapentin (Gabapentin 300 Mg Capsule) 300 mg PO TID ADRIANA Stop: 03/09/25 21:59 Glucagon (Glucagon Inj 1 Mg Vial) 1 mg IM Q15MIN PRN PRN Reason: BG <70, and no IV access Glucagon (Glucagon Inj 1 Mg Vial) 1 mg IM Q15MIN PRN PRN Reason: BG <70, and no IV access Heparin Sodium (Porcine) (Heparin Sod Inj 1000 Unit/Ml Vial 10 Ml) 3,300 unit INDWELLCAT X1 PRN PRN Reason: DIALYSIS Stop: 02/21/25 19:41 Piperacillin Sod/Tazobactam (Sod 3.375 gm/ Sodium Chloride) 100 mls @ 25 mls/hr IV Q12HR ADRIANA Stop: 02/15/25 08:59 Vancomycin/Sodium Chloride (Vancomycin/Ns 1 Gm Ivpb) 200 mls @ 120 mls/hr IV X1 ONE Stop: 02/07/25 23:54 Piperacillin Sod/Tazobactam (Sod 4.5 gm/ Sodium Chloride) 100 mls @ 200 mls/hr IV X1 ONE Stop: 02/07/25 22:59 Insulin Human Lispro (Insulin Lispro (Admelog) 1 Unit/0.01 Ml Unit) 0 unit SC [facility]; Protocol Stop: 03/10/25 07:29 Metoprolol Succinate (Metoprolol Succinate Xl 25 Mg Tabcr) [facility] Stop: 03/10/25 08:59 Pantoprazole Sodium (Pantoprazole 40 Mg Tablet) 40 [facility] Stop: 03/10/25 08:59 Pharmacy Consult (Vancomycin Pharmacy To Dose 1 Each Each) 1 each [facility] Stop: 03/10/25 08:59 Sevelamer Carbonate (Sevelamer Carbonate 800 Mg Tablet) 800 mg PO TIDWM ADRIANA Stop: 03/10/25 07:59 Discontinued Medications Calcium Gluconate (Calcium Gluconate 10% Inj 1 Gm/10 Ml Vial) 1 gm IV X1 ONE Stop: 02/07/25 17:01 Last Admin: 02/07/25 17:07 Dose: 1 gm Dextrose (Dextrose 50%-Water Inj 50 Ml Syringe) 100 ml IV X1 ONE Stop: 02/07/25 17:11 Last Admin: 02/07/25 17:24 Dose: 100 ml Calcium Gluconate/Sodium Chloride (Calcium Gluc/Ns 1000mg Ivpb) 1,000 mg in 50 mls @ 50 mls/hr IV X1 ONE Stop: 02/07/25 17:59 Last Admin: 02/07/25 17:07 Dose: Not Given Ceftriaxone Sodium 1 gm/ (Sodium Chloride) 50 mls @ 100 mls/hr [facility] Stop: 02/13/25 18:29 Sodium Chloride (Ns) 250 mls @ 999 mls/hr IV .Q16M ONE Stop: 02/07/25 22:16 Insulin Human Regular (Insulin Hum Regular 1 Unit/0.01 Ml (Per Unit)) 5 unit IV X1 ONE Stop: 02/07/25 17:11 Last Admin: 02/07/25 17:29 Dose: 5 unit Sodium Polystyrene Sulfonate (Sod Polystyrene Sulfon Susp 15 Gm/60 Ml Btl) 15 gm PO X1 ONE Stop: 02/07/25 17:10 Last Admin: 02/07/25 17:31 Dose: 15 gm Assessment & Plan Plan Patient is a 59 years old male with past medical history of end-stage renal disease on HD (M/W/F), type 2 diabetes mellitus, hypertension, hyperlipidemia, and prior upper GI bleed, presented from SNF with generalized weakness and missed dialysis, was admitted as observational for emergent hemodialysis by primary team, was upgraded to ICU after rapid response called due to patient being unresponsive. Neuro: #Acute encephalopathy. #Stroke rule out. Patient was found to be completely unresponsive on hemodialysis session with stable vitals, both pupils were constricted but reactive to light. Due to rapid change of his mental status stroke alert was called and teleneuro was consulted. CT and CTA of the head showed no acute hemorrhage, mass effect or significant arterial stenosis. Patient was hypertensive, diaphoretic with cold skin, unresponsive; likely due to urinary retention versus possible sepsis. Plan: - Neuro Checks (Q2). - Bedside Swallow Eval. ?-DVT Prophylaxis. - Head of Bed 30 Degrees. - Euglycemia and Avoid Hyperthermia (PRN Acetaminophen). Cardiovascular: #Hypotension. Sepsis VS decompression related hypotension. Patient presented with normal vital signs and went to hemodialysis and was maintaining blood pressure around 120/80, shortly after decompression of the bladder patient went to hypotension with MAP around 60 requiring initiation of Levophed. He also was slightly tachycardic and tachypneic. His labs showed lactic acid 1.8, WBCs 18.5. Patient was given 250 cc of NS with no response in blood pressure. Patient likely suffered from bladder decompression hypertension. Plan: - Hold off on fluids. - Continue on Levophed to maintain MAP above 65. #Troponinemia. On admission to ICU troponin I 0.527, EKG is unchanged from the 1 on admission, sinus rhythm with first-degree AV block, nonspecific ST segment changes. Likely NSTEMI type II in setting of possible sepsis and hypotension. Plan: - Continue trending troponin. - Consider cardiology consult. #Paroxysmal Atrial Fibrillation. #Hx of HFpEF with EF 60%. #Hx of HTN. #Hx of HLD. Sinus rhythm today, first-degree AV block on EKG, QTc 460. [id number] = 4, HAS-BLED = 3. Plan: - hold home metoprolol due to hypotension. - Continue Eliquis 5 mg BID. - Monitor rate/rhythm, maintain electrolytes. Respiratory: No active problem. Gastrointestinal: #Hx of GI bleeding. Hgb is stable, no black/bloody BMs reported. Plan: - continue to monitor. Renal: #ESRD on HD ? Missed dialysis session. Cr 15.4, K 7.0 on admission, underwent emergent HD, labs after HD showed: K 4.2, BUN 35, Cr 6.6. Plan: - Consulted nephrology (pt followed by Dr. Garcia). - Continue M/W/F HD schedule. - Hold gabapentin (renally cleared; may worsen encephalopathy). - continue on sevelamer. #Hyperkalemia, resolved. #Hyperphosphatemia. Likely due to missed HD, K 7 -> 4.2 after Kayexilate, insulin IV and HD. Phosphorus 5.3. Plan: - monitor with daily labs. - continue on sevelamer. Endocrine: #Hx of T2DM. HgbA1C 6.1 from 01/16/2025. Plan: - SSI. - Q6H accuchecks. - f/u A1C in AM. Infectious Disease: #Acute UTI. #History of UTI with bacteremia. Ongoing ceftriaxone for UTI from SNF for 7 days started on 02/05. WBC 18.5. UA: WBC 1251, + LE, rare bacteria. Plan: - discontinue ceftriaxone 1 g IM daily. - started on Zosyn and vancomycin IV. - cultures taken. Hematology/Oncology: #Leukocytosis. WBC 16.3 -> 18.5. Plan: - as above. #Anemia of Chronic Disease. Stable from last discharge. Plan: - Trend CBC. Diet: NPO. Drip: Levophed. Lines: peripheral x2. UC: Wilde. DVT prophylaxis: Eliquis. GI prophylaxis: Protonix. Code status: DNR. Disposition: ICU. Plan of care discussed with ICU attending Dr. Alejo. Alex Blake MD, PGY 3. Disclaimer: This note was dictated by speech recognition. Minor errors in business planning director may be present due to voice recognition software. Attending Provider Attestation/Addendum I attest that I was physically present for the evaluation, physical examination, lab and imaging review of the patient with the residents. I discussed the case with the residents and agree with the findings and plans of care as documented above. Patient is a 59 years old male with past medical history of ESRD on hemodialysis, type 2 diabetes mellitus, hypertension, hyperlipidemia, GI bleeding who presented to the ED from SNF with generalized weakness and missed dialysis. He was then admitted to medical floors on observation. Patient was started on emergency hemodialysis as he had potassium of 7, elevated BUN and creatinine. He also received temporizing measures with IV insulin, calcium gluconate. During hemodialysis, patient was alert, oriented x 2. During hemodialysis, when patient had 1 he left about 10 minutes to finish, rapid response was called as patient was unresponsive. As per dialysis nurse, patient was not verbal until 1 hour prior and went to sleep at that time. He is vital signs were stable throughout the session. At bedside, patient was unresponsive to verbal stimuli, painful stimuli including sternal rub. He had stable vitals and was maintaining saturation and airway. Blood glucose level was within normal limits. Lab were ordered including CBC, CMP, troponin, ammonia, lactic acid, VBG. EKG was also ordered. Due to sudden change in altered mentation, stroke alert was called and teleneurology was consulted. Patient underwent head CT and CTA, both were negative for acute changes. EKG showed sinus rhythm. On the labs, patient was noted to have worsening leukocytosis, his BUN and potassium level had improved, lactic acid, ammonia, CK were within normal limits. Troponin was mildly elevated at 0.527. Noted to have bladder distention on abdominal exam, bladder scan was performed showing more than 800 cc of urine, Wilde catheter was placed and dark brown urine were collected. He was also started on broad-spectrum IV antibiotics with IV vancomycin and Zosyn. Patient's mental status improved after urinary bladder decompression. On exam, his pupils were also dilated, noted to have a patch on his back, unclear if it was fentanyl or lidocaine, Narcan 0.4 mg was given. Patient was transferred to ICU for close monitoring. He also started having hypotension and was started on Levophed gtt. We will obtain urinalysis and urine cultures. We will continue with frequent neurochecks, bedside swallow evaluation and obtain in-house neurology consult. We will trend his troponin. Ally Alejo MD
[2025-02-07] MEDS: PIPER/TAZO INJ 4.5 GM in SODIUM CHLORIDE 0.9% (POP) 100 ML IV (22:53)
[2025-02-07] MEDS: SODIUM CHLORIDE 0.9% 250 ML 250 ML 999 ML IV (22:55)
[2025-02-07 22:58] LABS: Ammonia < 10 uMol/L (11-32)
[2025-02-07 23:09] LABS: Bacteria,Urine Rare; RBC,Urine 786 /hpf (0-3); WBC,Urine 1251 /hpf (0-5)
[2025-02-07 23:15] LABS: Bilirubin,Urine Negative (Negative); Blood,Urine 3+ (Negative); Color,Urine Dark-Brown (Lt Yel-Yel); Glucose, Urine 1+ (Negative); Ketones,Urine Negative (Negative); Leukocyte Esterase,Urine Positive (Negative); Nitrite,Urine Negative (Negative); PH,Urine 7.5 (5.0-7.0); Protein,Urine 2+ (Neg - Trace); Specific Gravity,Urine 1.013 (1.001-1.035); Urobilinogen,Urine Negative mg/dL (0.0-1.0)
[2025-02-07 23:16] LABS: Clarity,Urine Turbid (Clear/Hazy)
[2025-02-07] MEDS: Norepinephrine/D5W 8mg/250ml 8 MG/250 ML BAG 6.244 MG IV (23:23)
[2025-02-07] MEDS: VANCOMYCIN/NS 1 GM IVPB 200 ML IV (23:31)
[2025-02-08] VITALS (70 sets, daily range): BP systolic 80–157; BP diastolic 44–93; PULSE 72–98; RESP 4–96; TEMP 36.1–36.9; O2SAT 87–100; BMI 26.8; BMI 27.9
[2025-02-08 05:35] LABS: Basophils # (Auto) 0.1 Thou/mm3 (0.0-0.2); Basophils % (Auto) 1 % (0-2.5); Eosinophils # (Auto) 0.1 Thou/mm3 (0.0-0.5); Eosinophils % (Auto) 1 % (0-10); Hematocrit 21.7 % (41.0-53.0); Immature Granulocytes Auto 0.10 Thou/mm3 (0.00-0.00); Lymphocytes # (Auto) 0.6 Thou/mm3 (1.0-4.8); Lymphocytes % (Auto) 5 % (10-50); Mean Corpuscular HGB Conc 32.7 g/dl (31.0-37.0); Mean Corpuscular Hemoglobin 30.0 pg (25.0-35.0); Mean Corpuscular Volume 92 fL (80-100); Monocytes # (Auto) 0.9 Thou/mm3 (0.0-0.8); Monocytes % (Auto) 8 % (0-12); Neutrophils # (Auto) 10.0 Thou/mm3 (1.8-7.7); Neutrophils % (Auto) 85 % (37-80); Nucleated Red Blood Cell # 0.00 Thou/mm3 (0.00-0.00); Nucleated Red Blood Cell % 0 /100 WBC (0); Platelet Count 327 Thou/mm3 (140-440); RDW Standard Deviation 62.2 fL (35.1-43.9); Red Blood Count 2.37 Miln/mm3 (4.50-5.90); White Blood Count 11.7 Thou/mm3 (3.8-10.6)
[2025-02-08 05:57] LABS: Glucose Estimated Average 148 mg/dL (80-131); Hemoglobin A1C 6.8 % Hgb (4.8-6.0)
[2025-02-08 06:07] LABS: Hemoglobin 7.1 g/dL (13.5-16.0)
[2025-02-08 06:16] LABS: Alanine Aminotransferase 29 U/L (10-49); Albumin, Serum 3.2 gm/dL (3.5-5.0); Albumin/Globulin Ratio 0.8 (1.2-2.2); Alkaline Phosphatase 114 U/L (46-116); Anion Gap 15 (7-16); Aspartate Amino Transferase 22 U/L (0-34); BUN/Creatinine Ratio 5 Ratio (12-20); Bilirubin,Total 0.6 mg/dL (0.3-1.2); Blood Urea Nitrogen 40 mg/dL (9-23); Calcium 8.8 mg/dL (8.3-10.6); Calcium (Corrected) 9.4 mg/dL (8.5-10.1); Carbon Dioxide 24.3 mMol/L (20.0-31.0); Chloride 100 mMol/L (98-107); Creatinine (Component) 8.2 mg/dL (0.6-1.3); Estimated Creatinine Clearance 8.3 mL/min (>60); Globulin 4.2 gm/dL (2.3-3.5); Glucose 110 mg/dL (74-106); Magnesium 2.1 mg/dL (1.6-2.6); Osmolality,Calculated 288 (275-295); Phosphorous 8.3 mg/dL (2.4-5.1); Potassium 4.8 mMol/L (3.4-5.1); Sodium 139 mMol/L (136-145); Total Protein 7.4 gm/dL (5.7-8.2); eGFR 7 See Note
[2025-02-08 06:24] LABS: Troponin I 0.443 ng/mL (0.0-0.045)
[2025-02-08 06:41] LABS: Vancomycin,Random 17.7 mcg/mL
[2025-02-08] MEDS: SEVELAMER CARBONATE 800 MG TABLET PO ×3 (09:16→18:02)
[2025-02-08] MEDS: PANTOPRAZOLE 40 MG TABLET PO (09:16)
--- NOTE | 2025-02-08 09:17 | PD.RESCONSUL ---
HPI Data of Consult Consult date: 02/08/25 Requesting Physician: Sheba Kumar MD Admitting Provider: Sheba Kumar MD Attending Provider: Sheba Kumar MD Primary Care Provider: Yesy Penn MD Consult Narrative Reason for consult: Emergent HD, ESRD History of present illness: 59-year-old male with a complex medical history including end-stage renal disease on HD (MWF), type 2 diabetes mellitus, hypertension, hyperlipidemia, and prior upper GI bleed, presents from [facility] with generalized weakness and missed dialysis. Per EMS, the patient was not confused during transport and stated he was willing to resume dialysis. However, during initial interview, the patient displayed signs of confusion and tangential speech, with difficulty completing thoughts and inconsistent responses. On admission, He states that he came to the hospital ?because my son told me I have to? and that he has not been receiving dialysis recently due to leg pain when lying down. He was unclear on the last date of dialysis and unable to recall recent events. He denied chest pain, shortness of breath, dizziness, syncope, fevers, nausea, vomiting, or melena. He reports some mild right leg pain when lying in a certain position but denied bilateral symptoms. He is alert to self and location but not to time. He endorses making ?a little urine? despite ESRD. ED Course: In the ED, he was found to be alert but tangential and intermittently disoriented, oriented only to self and location but not time. He was conversational but demonstrated disorganized thought processes and poor insight. No acute complaints of chest pain, shortness of breath, fever, or dizziness were reported. He did endorse mild right leg pain with certain positions but denied bilateral symptoms. Initial labs: Hgb 8.7, WBC 16.3, K 7.0, Cr 15.4, Venous Doppler of the right lower extremity was performed due to leg pain and swelling ? results were negative for DVT. EKG showed sinus rhythm at 89 bpm, first-degree AV block (NC 218 ms), and evidence of an anteroseptal infarct of indeterminate age. Currently, patient is doing much better after having completed HD per Dr. Garcia. Patient was alert and oriented x3, laying in bed, conversing normally without any new complaints/concerns. Patient states that he had been going to HD regularly and did not skip attending sessions, just that he has cut them short because of his leg pain described as muscle pain. Muscle relaxant cyclobenzaprine was ordered. Patient also noted that he feels too much fluid is being taken off during dialysis. Will plan to hold HD today. Patient denies any fever, headache, chest pain, shortness of breath, abdominal pain. Nephrology was consulted for patient needing urgent dialysis. cc:: cc: Sheba Kumar MD Review of Systems Review of Systems Narrative Review of Systems: General: Denies fevers or chills HEENT: Denies congestion or sore throat Heart: Denies chest pain or palpitations Lungs: Denies shortness of breath or cough Abdomen: Denies diarrhea, nausea, vomiting, constipation, bright red blood per rectum or melena Genitourinary: Denies frequency, urgency, dysuria, or hematuria Musculoskeletal: muscle pain with dialysis Neurology: Denies any changes in vision, weakness or difficulty speaking Past Medical History Past Medical History CARDIAC: Positive Cardiac Disorders, Atrial Fibrillation, Hypercholesterolemia, Congestive Heart Failure and Hypertension GENITOURINARY: Positive Genitourinary Disorders, Renal Disease and Dialysis ENDOCRINE: Positive Endocrine Disorders and Diabetes Mellitus Type 2 OTHER HISTORY: Positive Falls Family History FAMILY HISTORY: Positive Family Cancer Social History SMOKING STATUS: Never smoker SUBSTANCE USE: does not use ALCOHOL: Never Exam Vital Signs Temp Pulse Resp BP Pulse Ox O2 Del Method O2 Flow Rate 98.4 F 80 20 119/66 99 Room Air 5 02/08/25 04:00 02/08/25 06:31 02/08/25 06:31 02/08/25 06:30 02/08/25 06:31 02/07/25 18:06 02/08/25 06:31 Narrative Exam General: Awake and in no acute distress. Conversational and non-toxic appearing. HEENT: Normocephalic, atraumatic, mucous membranes moist. Heart: Regular rate and rhythm, normal S1 and S2, no murmurs. Lungs: Clear to auscultation with no wheezing or crackles. Abdomen: Soft, nondistended, nontender, positive bowel sounds. ?No guarding or rebound tenderness. Neurologic: Alert and oriented x3, no gross neurological deficit, and patient able to move all 4 extremities. Extremities: mild LE edema. Skin: No rash or ecchymoses. Results Labs 02/09/25 05:35 02/09/25 09:53 Labs: Short CBC 02/07/25 02/07/25 02/08/25 Range/Units 15:30 21:20 04:19 WBC 16.3 H 18.5 H 11.7 H D (3.8-10.6) Thou/mm3 Hgb 8.7 L 8.1 L 7.1 L (13.5-16.0) g/dL Hct 27.5 L 24.8 L 21.7 L* (41.0-53.0) % Plt Count 435 D 397 D 327 D (140-440) Thou/mm3 BMP 02/07/25 02/07/25 02/07/25 15:30 18:05 21:20 Sodium 139 137 139 Potassium 7.0 H* 6.5 H* D 4.2 D Chloride 98 99 99 Carbon Dioxide 20.3 18.5 L 22.9 BUN 96 H 99 H 35 H Creatinine 15.4 H* 14.9 H* D 6.6 H* D Glucose 120 H 238 H D 118 H D Calcium 9.3 9.8 9.3 02/08/25 04:19 Sodium 139 Potassium 4.8 D Chloride 100 Carbon Dioxide 24.3 BUN 40 H Creatinine 8.2 H* D Glucose 110 H Calcium 8.8 Cardiac Enzymes 02/07/25 02/07/25 02/08/25 Range/Units 21:20 22:03 04:19 Total Creatine Kinase 23 L (34-171) U/L Troponin I 0.527 H* 0.443 H* (0.0-0.045) ng/mL Liver Function 02/07/25 02/07/25 02/07/25 Range/Units 15:30 18:05 21:20 Total Bilirubin 0.6 0.6 0.7 (0.3-1.2) mg/dL AST 23 22 33 (0-34) U/L ALT 36 31 38 (10-49) U/L Alkaline Phosphatase 145 H 131 H 140 H (46-116) U/L Albumin 3.8 3.6 3.8 (3.5-5.0) gm/dL 02/08/25 Range/Units 04:19 Total Bilirubin 0.6 (0.3-1.2) mg/dL AST 22 (0-34) U/L ALT 29 (10-49) U/L Alkaline Phosphatase 114 D (46-116) U/L Albumin 3.2 L D (3.5-5.0) gm/dL Urine 02/07/25 Range/Units 22:06 Urine Color Dark-Brown (Lt Yel-Yel) Urine Clarity Turbid A (Clear/Hazy) Urine pH 7.5 H (5.0-7.0) Ur Specific [place] 1.013 (1.001-1.035) Urine Protein 2+ A (Neg - Trace) Urine Glucose (UA) 1+ A (Negative) ABG Interpretation ABG results: 02/07/25 21:20 VBG pH 7.50 VBG pCO2 33 L VBG pO2 102 H VBG Base Excess 2 Quality Measures Quality Measures VTE prophylaxis Medications Home Medications and Allergies Home Medications ?Medication ?Instructions ?Recorded ?Confirmed ?Type vitamin B comp no.3-folic acid 1 1 tab PO .QD 11/03/24 02/08/25 History mg-vit C 60 mg-biotin 300 mcg tablet (Ileana-Koko Rx) apixaban 5 mg tablet (Eliquis) 5 mg PO BID 01/17/25 02/08/25 History acetaminophen 325 mg tablet 650 mg PO Q6H PRN pain (scale 02/08/25 02/08/25 History (Tylenol) score 1-3) ceftriaxone 1 gram with lidocaine 1 ea .Route QDAY 02/08/25 02/08/25 History 1 % intramuscular kit diclofenac sodium 1 % topical gel 2 g topical QID PRN Left shoulder 02/08/25 02/08/25 History pain hydrocodone 5 mg-acetaminophen 325 1 tab PO Q8H PRN pain (scale score 02/08/25 02/08/25 History mg tablet 7-10) insulin lispro 100 unit/mL 1 sliding scale dose subcut 02/08/25 02/08/25 History subcutaneous pen, sensor (Humalog USEASDIRECTD Tempo Pen (U-100) Insulin) lidocaine 4 % topical patch 1 patch topical Q24H 02/08/25 02/08/25 History magnesium hydroxide 400 mg/5 mL 30 ml PO Q72H PRN constipation 02/08/25 02/08/25 History oral suspension (Dulcolax (magnesium hydroxide)) Allergies Allergy/AdvReac Type Severity Reaction Status Date / Time No Known Allergies Allergy Verified 02/07/25 15:41 Visit Medications Acetaminophen (Acetaminophen 500 Mg Tablet) 500 mg PO Q4HR PRN PRN Reason: fever > 100.5 Stop: 03/09/25 22:06 Dextrose (Dextrose 50%-Water Inj 50 Ml Syringe) 25 ml IV Q15MIN PRN PRN Reason: BG 50-70 responsive npo pt Stop: 03/09/25 18:13 Dextrose (Dextrose 50%-Water Inj 50 Ml Syringe) 50 ml IV Q15MIN PRN PRN Reason: BG <50 OR BG <70 & pt unresponsive Stop: 03/09/25 18:13 Gabapentin (Gabapentin 300 Mg Capsule) 300 mg PO TID ADRIANA Stop: 03/09/25 21:59 Glucagon (Glucagon Inj 1 Mg Vial) 1 mg IM Q15MIN PRN PRN Reason: BG <70, and no IV access Heparin Sodium (Porcine) (Heparin Sod Inj 1000 Unit/Ml Vial 10 Ml) 3,300 unit INDWELLCAT X1 PRN PRN Reason: DIALYSIS Stop: 02/21/25 19:41 Norepinephrine/Dextrose (Levophed In D5w 8mg/250ml) 8 mg in 250 mls @ 6.244 mls/hr IV .Q24H PRN; Protocol PRN Reason: PER PROTOCOL Stop: 03/09/25 23:20 Last Titration: 02/08/25 01:00 Dose: 0 mcg/kg/min, 0 mls/hr Piperacillin/Tazobactam/Dextrose (Zosyn) 3.375 gm in 50 mls @ 12.5 mls/hr IV Q12HR [facility] Stop: 02/15/25 20:59 Insulin Human Lispro (Insulin Lispro (Admelog) 1 Unit/0.01 Ml Unit) 0 unit SC Q6HR ADRIANA; Protocol Stop: 03/10/25 05:59 Last Admin: 02/08/25 06:50 Dose: Not Given Metoprolol Succinate (Metoprolol Succinate Xl 25 Mg Tabcr) 25 mg PO QDAY [facility] Stop: 03/10/25 08:59 Pantoprazole Sodium (Pantoprazole 40 Mg Tablet) 40 mg PO QDAY [facility] Stop: 03/10/25 08:59 Last Admin: 02/08/25 09:16 Dose: 40 mg Pharmacy Consult (Vancomycin Pharmacy To Dose 1 Each Each) 1 each IV QDAY PRN PRN Reason: PROTOCOL Stop: 03/10/25 08:59 Sevelamer Carbonate (Sevelamer Carbonate 800 Mg Tablet) 800 mg PO TIDWM ADRIANA Stop: 03/10/25 07:59 Last Admin: 02/08/25 09:16 Dose: 800 mg Discontinued Medications Apixaban (Apixaban 2.5 Mg Tablet) 5 mg PO BID ADRIANA Stop: 03/10/25 08:59 Calcium Gluconate (Calcium Gluconate 10% Inj 1 Gm/10 Ml Vial) 1 gm IV X1 ONE Stop: 02/07/25 17:01 Last Admin: 02/07/25 17:07 Dose: 1 gm Dextrose (Dextrose 50%-Water Inj 50 Ml Syringe) 100 ml IV X1 ONE Stop: 02/07/25 17:11 Last Admin: 02/07/25 17:24 Dose: 100 ml Glucagon (Glucagon Inj 1 Mg Vial) 1 mg IM Q15MIN PRN PRN Reason: BG <70, and no IV access Calcium Gluconate/Sodium Chloride (Calcium Gluc/Ns 1000mg Ivpb) 1,000 mg in 50 mls @ 50 mls/hr IV X1 ONE Stop: 02/07/25 17:59 Last Admin: 02/07/25 17:07 Dose: Not Given Ceftriaxone Sodium 1 gm/ (Sodium Chloride) 50 mls @ 100 mls/hr IV QDAY [facility] Stop: 02/13/25 18:29 Last Admin: 02/07/25 22:59 Dose: Not Given Sodium Chloride (Ns) 250 mls @ 999 mls/hr IV .Q16M ONE Stop: 02/07/25 22:16 Last Admin: 02/07/25 22:55 Dose: 999 mls/hr Vancomycin/Sodium Chloride (Vancomycin/Ns 1 Gm Ivpb) 200 mls @ 120 mls/hr IV X1 ONE Stop: 02/07/25 23:54 Last Admin: 02/07/25 23:31 Dose: 120 mls/hr Piperacillin Sod/Tazobactam (Sod 4.5 gm/ Sodium Chloride) 100 mls @ 200 mls/hr IV X1 ONE Stop: 02/07/25 22:59 Last Admin: 02/07/25 22:53 Dose: 200 mls/hr Naloxone HCl 2 mg/ Dextrose 500 mls @ 10 mls/hr IV .Q24H [facility] Stop: 03/09/25 23:44 Last Admin: 02/07/25 23:50 Dose: Not Given Piperacillin/Tazobactam/Dextrose (Zosyn) 3.375 gm in 50 mls @ 100 mls/hr IV X1 ONE Stop: 02/08/25 09:14 Insulin Human Lispro (Insulin Lispro (Admelog) 1 Unit/0.01 Ml Unit) 0 unit SC AC ADRIANA; Protocol Stop: 03/10/25 07:29 Insulin Human Regular (Insulin Hum Regular 1 Unit/0.01 Ml (Per Unit)) 5 unit IV X1 ONE Stop: 02/07/25 17:11 Last Admin: 02/07/25 17:29 Dose: 5 unit Naloxone HCl (Naloxone Inj 1 Mg/Ml Syringe 2 Ml) 2 mg IV X1 ONE Stop: 02/07/25 23:50 Last Admin: 02/08/25 00:04 Dose: Not Given Naloxone HCl (Naloxone Inj 0.4 Mg/Ml Vial) 0.4 mg IV X1 ONE Stop: 02/08/25 00:16 Last Admin: 02/08/25 00:15 Dose: 0.4 mg Sodium Polystyrene Sulfonate (Sod Polystyrene Sulfon Susp 15 Gm/60 Ml Btl) 15 gm PO X1 ONE Stop: 02/07/25 17:10 Last Admin: 02/07/25 17:31 Dose: 15 gm Assessment & Plan Plan 59M with ESRD, hx of AFib, DM2, HTN, HLD, recently hospitalized for uremic encephalopathy, bacteremia, and GI bleed, now re-admitted with missed dialysis, hyperkalemia, and altered mental status. #ESRD on HD (MWF) #Anemia of Chronic Disease #Hyperkalemia, improved #Altered Mental Status, improved #Acute Encephalopathy, improved Patient presented with confusion and weakness, found to have K 7.0, Cr 15.4 on admission. Given Kayexalate, insulin, Ca gluconate and then proceeded with HD. Potassium improved to normal range and mental status improved after HD. Patient states he attended Mon's HD session and previous ones from the week, but has cut them short because of leg pain. HD done 02/07. 2 L removed. Patient had rapid called at end of the session, fth 800cc in bladder, given small with 2L purple/brown urine. BP dropped to 80/53, not fluid responsive, given x1 Levophed. Patient hgb on admission 8.7, dropped to 7.1. No bleeding noted, stable. Altered mental status initially seen likely due to uremia. Patient appears clinically improved and will not need dialysis today. Plan: -Hold HD today. -Ordered IV Iron 125 mg q daily, will monitor hgb (also will monitor for signs/symptoms of bleeding; currently none) and plan to give Epogen tomorrow -Continue MWF HD schedule -Sevelamer 800 PO TID -Hold gabapentin (renally cleared; may worsen encephalopathy) #Paroxysmal Atrial Fibrillation with history of CHF #Anemia of Chronic Disease (Hgb 8.7) #Right Lower Extremity Pain #History of UTI with bacteremia #T2DM, HTN, HLD, constipation, chronic pain neuropathy? Chronic -above managed per primary team Patient plan of care was discussed with the attending physician, Dr. Manju Franco MD PGY-1 Attending Provider Attestation/Addendum Nephrology coverage for Dr. Garcia Patient seen and examined with resident physician Dr. Franco. Note reviewed, agree with findings and recommendations. Patient did receive dialysis last night per Dr. Garcia orders. Currently seen in ICU. Back to normal. Mentation completely normalized. He goes to dialysis Monday, Monday, Monday. Did not complete his treatments due to leg cramps. I ordered baclofen. Spoke to primary team. If clinically stable can be discharged tomorrow. Thank you Omar for allowing me to participate in the care of Mr. Springer
[2025-02-08] MEDS: PIPER/TAZO 3.375 GM PREMIX 3.375 GM/50 ML BAG IV (09:22)
[2025-02-08] MEDS: METOPROLOL SUCCINATE XL 25 MG TABCR PO (10:00)
--- NOTE | 2025-02-08 12:12 | PD.RESPRO ---
Documentation for date of: 02/08/25 Subjective Subjective Interval history: Patient is a 59 years old male with past medical history of end-stage renal disease on HD (M/W/F), type 2 diabetes mellitus, hypertension, hyperlipidemia, and prior upper GI bleed, presented from SNF with generalized weakness and missed dialysis, was admitted as observational for emergent hemodialysis by primary team. He was alert to self and place but not to time, he wasn't lethargic. Initial labs on admission to the hospital showed severe hyperkalemia and significantly elevated BUN and creatinine. EKG showed first-degree AV block with nonspecific ST segment changes, QTc 431. Lower extremities ultrasound showed no DVT. Patient was given 5 units of insulin, sevelamer and calcium gluconate IV in the emergency room. He was then taken for emergent hemodialysis. While undergoing hemodialysis rapid response was called due to patient being unresponsive towards the end of hemodialysis session. Hemodialysis nurse noted that the patient was sweating and not responding to verbal stimulus. Patient was unarousable to sternal rub, but had good pulses and stable vitals. Due to rapid detoriation of his mental status stroke alert was called, teleneuro was consulted. Patient underwent head CT and CTA showing no hemorrhage, mass effect or arterial stenosis or occlusion. Repeat EKG showed QTc 460. Patient's code status DNR, he was able to protect his airways. Repeat labs showed worsening leukocytosis, significantly improved potassium and creatinine, lactic acid 1.8, phosphorus 5.3, ammonia below 10, total CK23, troponin I 0.527. Bladder scan was performed showing more than 800 cc of urine, catheter was placed with evacuation of dark brown urine. Patient's mental status has improved significantly. Subsequent urinalysis showed turbid urine with pH 7.5, protein 2+, glucose 1+, blood 3+, RBCs 786, WBCs 1251, rare bacteria, positive leukocyte esterase. Patient was started on IV vancomycin and Zosyn and was upgraded to ICU for further management. 02/08/2025: Patient seen and examined at bedside, overnight patient was upgraded to intensive care unit for hypotension after a rapid response postdialysis, patient was found to have 800 cc urinary retention, post Wilde catheterization patient was noted to be hypotensive apneic and bradycardic, likely bezold jarisch reflex, patient has significant hematuria per urinalysis from yesterday night, patient has been off of pressors this morning. Patient is alert and oriented x 3, engages well in conversation, does not require any pressor support, stable to be downgraded to telemetry, antibiotics will be discontinued, to be resumed by floor team per their discretion, use cyclobenzaprine as needed for muscle spasms instead of baclofen considering patient has ESRD, will hold metoprolol succinate and Eliquis for now considering the recent hypotension and hematuria. Patient did receive dialysis yesterday, had 2 L fluid removed, this morning patient is currently -1.02 L as well, currently does not need hemodialysis. Patient is stable to be downgraded to telemetry, signed off to the hospitalist team. Exam Vital Signs Temp Pulse Resp BP Pulse Ox O2 Del Method O2 Flow Rate 98.4 F 79 19 114/58 L 98 Room Air 5 02/08/25 07:00 02/08/25 10:00 02/08/25 10:00 02/08/25 10:00 02/08/25 10:00 02/08/25 07:00 02/08/25 06:31 Narrative Exam General: Awake and in no acute distress. Conversational and non-toxic appearing. HEENT: Normocephalic, atraumatic, mucous membranes moist. Right IJ dialysis catheter. Heart: Regular rate and rhythm, normal S1 and S2, no murmurs. Lungs: Clear to auscultation with no wheezing or crackles. Abdomen: Soft, nondistended, nontender, positive bowel sounds. ?No guarding or rebound tenderness. Neurologic: Alert and oriented x3, no gross neurological deficit, and patient able to move all 4 extremities. Extremities: Trace LE edema. Skin: No rash or ecchymoses. Objective Labs 02/08/25 04:19 02/08/25 04:19 Labs: Laboratory Results - last 24 hr 02/07/25 02/07/25 02/07/25 15:30 18:05 21:20 WBC 16.3 H 18.5 H RBC 2.92 L 2.70 L Hgb 8.7 L 8.1 L Hct 27.5 L 24.8 L MCV 94 92 MCH 29.8 30.0 MCHC 31.6 32.7 RDW Std Deviation 62.4 H 63.3 H Plt Count 435 D 397 D Neut % (Auto) 83 H 83 H Lymph % (Auto) 6 L 5 L [place] % (Auto) 7 8 Eos % (Auto) 3 2 Baso % (Auto) 1 1 Neut # (Auto) 13.4 H 15.3 H Lymph # (Auto) 0.9 L 0.9 L [place] # (Auto) 1.2 H 1.5 H Eos # (Auto) 0.5 0.4 Baso # (Auto) 0.1 0.1 Immature Gran # (Auto) 0.13 H 0.27 H Absolute Nucleated RBC 0.00 0.00 Immature Gran % 1 H 2 H Nucleated RBC % 0 0 PT 12.5 H INR 1.2 VBG pH 7.50 VBG pCO2 33 L VBG pO2 102 H VBG O2 Sat (Tony) 98 H VBG Base Excess 2 Sodium 139 137 139 Potassium 7.0 H* 6.5 H* D 4.2 D Chloride 98 99 99 Carbon Dioxide 20.3 18.5 L 22.9 Anion Gap 21 H 20 H 17 H BUN 96 H 99 H 35 H Creatinine 15.4 H* 14.9 H* D 6.6 H* D Estim Creat Clear Calc 4.0 L 4.2 L 10.3 L eGFR 3 L* 3 L* 9 L* BUN/Creatinine Ratio 6 L 7 L 5 L Glucose 120 H 238 H D [address] Glu mg/dL Hemoglobin A1c Calculated Osmolality 308 H 312 H 286 Lactic Acid 1.8 Calcium 9.3 9.8 9.3 Corrected Calcium 9.5 10.1 9.5 Phosphorus 5.3 H Magnesium Total Bilirubin 0.6 0.6 0.7 AST 23 22 33 ALT 36 31 38 Alkaline Phosphatase 145 H 131 H 140 H Ammonia Total Creatine Kinase Troponin I 0.527 H* Total Protein 8.7 H 7.9 8.6 H Albumin 3.8 3.6 3.8 Globulin 4.9 H 4.3 H 4.8 H Albumin/Globulin Ratio 0.8 L 0.8 L 0.8 L Ur Collection Type Urine Color Urine Clarity Urine pH Ur Specific [place] Urine Protein Urine Glucose (UA) Urine Ketones Urine Blood Urine Nitrite Urine Bilirubin Urine Urobilinogen (Auto) Ur Leukocyte Esterase Urine RBC Urine WBC Ur Squamous Epith Cells Urine Bacteria Random Vancomycin 02/07/25 02/07/25 02/08/25 22:03 22:06 04:19 WBC 11.7 H D RBC 2.37 L Hgb 7.1 L Hct 21.7 L* MCV 92 MCH 30.0 MCHC 32.7 RDW Std Deviation 62.2 H Plt Count 327 D Neut % (Auto) 85 H Lymph % (Auto) 5 L [place] % (Auto) 8 Eos % (Auto) 1 Baso % (Auto) 1 Neut # (Auto) 10.0 H Lymph # (Auto) 0.6 L [place] # (Auto) 0.9 H Eos # (Auto) 0.1 Baso # (Auto) 0.1 Immature Gran # (Auto) 0.10 H Absolute Nucleated RBC 0.00 Immature Gran % 1 H Nucleated RBC % 0 PT INR VBG pH VBG pCO2 VBG pO2 VBG O2 Sat (Tony) VBG Base Excess Sodium 139 Potassium 4.8 D Chloride 100 Carbon Dioxide 24.3 Anion Gap 15 BUN 40 H Creatinine 8.2 H* D Estim Creat Clear Calc 8.3 L eGFR 7 L* BUN/Creatinine Ratio 5 L Glucose [address] Glu mg/dL 148 H Hemoglobin A1c 6.8 H Calculated Osmolality 288 Lactic Acid Calcium 8.8 Corrected Calcium 9.4 Phosphorus 8.3 H Magnesium 2.1 Total Bilirubin 0.6 AST 22 ALT 29 Alkaline Phosphatase 114 D Ammonia < 10 L Total Creatine Kinase 23 L Troponin I 0.443 H* Total Protein 7.4 Albumin 3.2 L D Globulin 4.2 H Albumin/Globulin Ratio 0.8 L Ur Collection Type Catheter Urine Color Dark-Brown Urine Clarity Turbid A Urine pH 7.5 H Ur Specific [place] 1.013 Urine Protein 2+ A Urine Glucose (UA) 1+ A Urine Ketones Negative Urine Blood 3+ A Urine Nitrite Negative Urine Bilirubin Negative Urine Urobilinogen (Auto) Negative Ur Leukocyte Esterase Positive Urine RBC 786 H Urine WBC 1251 H Ur Squamous Epith Cells 0 Urine Bacteria Rare Random Vancomycin 17.7 ABG Interpretation ABG results: 02/07/25 21:20 VBG pH 7.50 VBG pCO2 33 L VBG pO2 102 H VBG Base Excess 2 Quality Measures Quality Measures VTE prophylaxis Assessment & Plan Assessment Current Active Medications: Generic Name Dose Route Start Last Admin Trade Name Freq PRN Reason Stop Dose Admin Acetaminophen 500 mg 02/07/25 22:07 Acetaminophen 500 Mg Tablet PO 03/09/25 22:06 Q4HR PRN fever > 100.5 Cyclobenzaprine HCl 5 mg 02/08/25 11:32 Cyclobenzaprine 5 Mg Tablet PO 03/10/25 11:31 TID PRN MUSCLE SPASMS Dextrose 25 ml 02/07/25 18:14 Dextrose 50%-Water Inj 50 Ml Syringe IV 03/09/25 18:13 Q15MIN PRN BG 50-70 responsive npo pt Dextrose 50 ml 02/07/25 18:14 Dextrose 50%-Water Inj 50 Ml Syringe IV 03/09/25 18:13 Q15MIN PRN BG <50 OR BG <70 & pt unresponsive Gabapentin 300 mg 02/07/25 22:00 Gabapentin 300 Mg Capsule PO 03/09/25 21:59 TID ADRIANA Glucagon 1 mg 02/07/25 18:14 Glucagon Inj 1 Mg Vial IM Q15MIN PRN BG <70, and no IV access Heparin Sodium (Porcine) 3,300 unit 02/07/25 19:42 Heparin Sod Inj 1000 Unit/Ml Vial 10 Ml INDWELLCAT 02/21/25 19:41 X1 PRN DIALYSIS Insulin Human Lispro 0 unit 02/08/25 06:00 02/08/25 06:50 Insulin Lispro (Admelog) 1 Unit/0.01 Ml Unit SC 03/10/25 05:59 Not Given Q6HR ADRIANA Protocol Metoprolol Succinate 25 mg 02/08/25 09:00 02/08/25 10:00 Metoprolol Succinate Xl 25 Mg Tabcr PO 03/10/25 08:59 25 mg QDAY ADRIANA Administration Pantoprazole Sodium 40 mg 02/08/25 09:00 02/08/25 09:16 Pantoprazole 40 Mg Tablet PO 03/10/25 08:59 40 mg QDAY ADRIANA Administration Sevelamer Carbonate 800 mg 02/08/25 08:00 02/08/25 09:16 Sevelamer Carbonate 800 Mg Tablet PO 03/10/25 07:59 800 mg TIDWM ADRIANA Administration Plan Patient is a 59 years old male with past medical history of end-stage renal disease on HD (M/W/F), type 2 diabetes mellitus, hypertension, hyperlipidemia, and prior upper GI bleed, presented from SNF with generalized weakness and missed dialysis, was admitted as observational for emergent hemodialysis by primary team, was upgraded to ICU after rapid response called due to patient being unresponsive. Neuro: #Acute encephalopathy. #Stroke rule out. Patient was found to be completely unresponsive on hemodialysis session with stable vitals, both pupils were constricted but reactive to light. Due to rapid change of his mental status stroke alert was called and teleneuro was consulted. CT and CTA of the head showed no acute hemorrhage, mass effect or significant arterial stenosis. Patient was hypertensive, diaphoretic with cold skin, unresponsive; likely due to urinary retention versus possible sepsis. -CTA did note about 20% stenosis of left internal carotid artery. Dominant arteries left vertebral. Plan: - Continue neurochecks every 4 hours - Passed bedside swallow, currently on diet ?-DVT Prophylaxis. - Head of Bed 30 Degrees. - No MRI indicated, was seen by teleneuro Cardiovascular: #Hypotension. Sepsis VS decompression related hypotension. Patient presented with normal vital signs and went to hemodialysis and was maintaining blood pressure around 120/80, shortly after decompression of the bladder patient went to hypotension with MAP around 60 requiring initiation of Levophed. He also was slightly tachycardic and tachypneic. His labs showed lactic acid 1.8, WBCs 18.5. Patient was given 250 cc of NS with no response in blood pressure. Patient likely suffered from bladder decompression hypertension. Plan: - Patient is weaned off of pressors, hypotension likely secondary to bezold jarisch reflex - Continue Wilde catheter - Bladder checks every 6 hours #Troponinemia. On admission to ICU troponin I 0.527, EKG is unchanged from the 1 on admission, sinus rhythm with first-degree AV block, nonspecific ST segment changes. Likely NSTEMI type II in setting of possible sepsis and hypotension. Troponin down trended to 0.443 Plan: - Likely type II troponin, continue to monitor #Paroxysmal Atrial Fibrillation. #Hx of HFpEF with EF 60%. #Hx of HTN. #Hx of HLD. Sinus rhythm today, first-degree AV block on EKG, QTc 460. [id number] = 4, HAS-BLED = 3. Plan: - Hold home dose metoprolol - Hold Eliquis 5 mg BID, patient has significant hematuria - Monitor rate/rhythm, maintain electrolytes. Respiratory: #TRELL/OHS Has history of sleep apnea - CPAP at night Gastrointestinal: #Hx of GI bleeding. Hgb is stable, no black/bloody BMs reported. Hemoglobin did downtrend today, likely secondary to hematuria Plan: - Currently low clinical suspicion of GI bleed, no dark stools/hematochezia/hematemesis noted, continue to monitor Renal: #ESRD on HD ? Missed dialysis session. Cr 15.4, K 7.0 on admission, underwent emergent HD, labs after HD showed: K 4.2, BUN 35, Cr 6.6. 02/07: Dialysis session 2 L fluid removed Plan: - Consulted nephrology, currently being followed by Dr. Nunes, follows Dr. Crawford with outpatient - Continue M/W/F HD schedule. - Hold gabapentin (renally cleared; may worsen encephalopathy). - continue on sevelamer. #Gross hematuria Can be traumatic in setting of Wilde insertion CT abdomen pelvis reviewed from record earlier this month shows no evidence of any gross bladder tumor - Consider repeating urine analysis - Follow outpatient - Hold Eliquis for now, resume if patient's hematuria has resolved #Hyperkalemia, resolved. #Hyperphosphatemia. Likely due to missed HD, K 7 -> 4.2 after Kayexilate, insulin IV and HD. Phosphorus 5.3. Plan: - monitor with daily labs. - continue on sevelamer. Endocrine: #Hx of T2DM. HgbA1C 6.1 from 01/16/2025. 02/08 hemoglobin A1c 6.8 Plan: - SSI. - Q6H accuchecks. Infectious Disease: #Acute UTI. #History of UTI with bacteremia. Ongoing ceftriaxone for UTI from SNF for 7 days started on 02/05. WBC 18.5. UA: WBC 1251, + LE, rare bacteria. Plan: -Discontinued Zosyn and vancomycin -Patient asymptomatic's, currently antibiotics not indicated -Follow urine culture Hematology/Oncology: #Leukocytosis. WBC 16.3 -> 18.5. Plan: - as above. #Anemia of Chronic Disease. Stable from last discharge. Plan: - Trend CBC. DVT prophylaxis: Hold Eliquis, hematuria GI prophylaxis: P.o. Protonix Diet: Renal diet Lines: Peripheral IV Code status: DNR/DNI Disposition: Downgraded to med/tele, signed off to hospitalist team A Case discussed with Attending Physician Dr. Charito Steen MD Internal Medicine PGY-2 Disclaimer: This note was dictated by speech recognition. Minor errors in chief growth officer may be present due to voice recognition software.
[2025-02-08] MEDS: ACETAMINOPHEN 500 MG TABLET PO (12:23)
--- NOTE | 2025-02-08 15:07 | ESPR_ITS ---
<Statement entered by Sheba Kumar MD - 02/14/25 07:31> I reviewed above note and agree with findings and plans. I have also personally examined the patient with medicine team and went over assessment and plan with medical team including strategy intern and resident physician. Documentation for date of: 02/08/25 Subjective Subjective Interval history: Patient seen and examined this afternoon. He is alert, oriented to self and location, with improved mental status compared to yesterday. He recalls being in the ICU but does not remember the episode during dialysis. Denies chest pain, shortness of breath, dizziness, headache, fever, or chills. No nausea, vomiting, or abdominal pain. Reports improved back pain since starting cyclobenzaprine. No bowel movement yet per patient. Awaiting voiding trial tomorrow. Exam Vital Signs Temp Pulse Resp BP Pulse Ox O2 Del Method O2 Flow Rate 98.1 F 78 21 H 86/48 L 100 Nasal Cannula 2 02/08/25 12:00 02/08/25 14:00 02/08/25 14:00 02/08/25 14:00 02/08/25 14:00 02/08/25 12:00 02/08/25 12:00 Narrative Exam Neuro: Alert, oriented to self/place; following commands; speech coherent CV: RRR, no murmurs; no chest pain Resp: Clear to auscultation, using CPAP at night Abd: Soft, NT/ND, Wilde in place, no discomfort : Dark urine now clearing, no current hematuria, output adequate via Wilde Ext: No edema, good strength Skin: No rashes or breakdown Objective Labs 02/08/25 04:19 02/08/25 04:19 Labs: Laboratory Results - last 24 hr 02/07/25 02/07/25 02/07/25 15:30 18:05 21:20 WBC 16.3 H 18.5 H RBC 2.92 L 2.70 L Hgb 8.7 L 8.1 L Hct 27.5 L 24.8 L MCV 94 92 MCH 29.8 30.0 MCHC 31.6 32.7 RDW Std Deviation 62.4 H 63.3 H Plt Count 435 D 397 D Neut % (Auto) 83 H 83 H Lymph % (Auto) 6 L 5 L [place] % (Auto) 7 8 Eos % (Auto) 3 2 Baso % (Auto) 1 1 Neut # (Auto) 13.4 H 15.3 H Lymph # (Auto) 0.9 L 0.9 L [place] # (Auto) 1.2 H 1.5 H Eos # (Auto) 0.5 0.4 Baso # (Auto) 0.1 0.1 Immature Gran # (Auto) 0.13 H 0.27 H Absolute Nucleated RBC 0.00 0.00 Immature Gran % 1 H 2 H Nucleated RBC % 0 0 PT 12.5 H INR 1.2 VBG pH 7.50 VBG pCO2 33 L VBG pO2 102 H VBG O2 Sat (Tony) 98 H VBG Base Excess 2 Sodium 139 137 139 Potassium 7.0 H* 6.5 H* D 4.2 D Chloride 98 99 99 Carbon Dioxide 20.3 18.5 L 22.9 Anion Gap 21 H 20 H 17 H BUN 96 H 99 H 35 H Creatinine 15.4 H* 14.9 H* D 6.6 H* D Estim Creat Clear Calc 4.0 L 4.2 L 10.3 L eGFR 3 L* 3 L* 9 L* BUN/Creatinine Ratio 6 L 7 L 5 L Glucose 120 H 238 H D [address] Glu mg/dL Hemoglobin A1c Calculated Osmolality 308 H 312 H 286 Lactic Acid 1.8 Calcium 9.3 9.8 9.3 Corrected Calcium 9.5 10.1 9.5 Phosphorus 5.3 H Magnesium Total Bilirubin 0.6 0.6 0.7 AST 23 22 33 ALT 36 31 38 Alkaline Phosphatase 145 H 131 H 140 H Ammonia Total Creatine Kinase Troponin I 0.527 H* Total Protein 8.7 H 7.9 8.6 H Albumin 3.8 3.6 3.8 Globulin 4.9 H 4.3 H 4.8 H Albumin/Globulin Ratio 0.8 L 0.8 L 0.8 L Ur Collection Type Urine Color Urine Clarity Urine pH Ur Specific [place] Urine Protein Urine Glucose (UA) Urine Ketones Urine Blood Urine Nitrite Urine Bilirubin Urine Urobilinogen (Auto) Ur Leukocyte Esterase Urine RBC Urine WBC Ur Squamous Epith Cells Urine Bacteria Random Vancomycin 02/07/25 02/07/25 02/08/25 22:03 22:06 04:19 WBC 11.7 H D RBC 2.37 L Hgb 7.1 L Hct 21.7 L* MCV 92 MCH 30.0 MCHC 32.7 RDW Std Deviation 62.2 H Plt Count 327 D Neut % (Auto) 85 H Lymph % (Auto) 5 L [place] % (Auto) 8 Eos % (Auto) 1 Baso % (Auto) 1 Neut # (Auto) 10.0 H Lymph # (Auto) 0.6 L [place] # (Auto) 0.9 H Eos # (Auto) 0.1 Baso # (Auto) 0.1 Immature Gran # (Auto) 0.10 H Absolute Nucleated RBC 0.00 Immature Gran % 1 H Nucleated RBC % 0 PT INR VBG pH VBG pCO2 VBG pO2 VBG O2 Sat (Tony) VBG Base Excess Sodium 139 Potassium 4.8 D Chloride 100 Carbon Dioxide 24.3 Anion Gap 15 BUN 40 H Creatinine 8.2 H* D Estim Creat Clear Calc 8.3 L eGFR 7 L* BUN/Creatinine Ratio 5 L Glucose [address] Glu mg/dL 148 H Hemoglobin A1c 6.8 H Calculated Osmolality 288 Lactic Acid Calcium 8.8 Corrected Calcium 9.4 Phosphorus 8.3 H Magnesium 2.1 Total Bilirubin 0.6 AST 22 ALT 29 Alkaline Phosphatase 114 D Ammonia < 10 L Total Creatine Kinase 23 L Troponin I 0.443 H* Total Protein 7.4 Albumin 3.2 L D Globulin 4.2 H Albumin/Globulin Ratio 0.8 L Ur Collection Type Catheter Urine Color Dark-Brown Urine Clarity Turbid A Urine pH 7.5 H Ur Specific [place] 1.013 Urine Protein 2+ A Urine Glucose (UA) 1+ A Urine Ketones Negative Urine Blood 3+ A Urine Nitrite Negative Urine Bilirubin Negative Urine Urobilinogen (Auto) Negative Ur Leukocyte Esterase Positive Urine RBC 786 H Urine WBC 1251 H Ur Squamous Epith Cells 0 Urine Bacteria Rare Random Vancomycin 17.7 ABG Interpretation ABG results: 02/07/25 21:20 VBG pH 7.50 VBG pCO2 33 L VBG pO2 102 H VBG Base Excess 2 Quality Measures Quality Measures VTE prophylaxis Assessment & Plan Assessment Current Active Medications: Generic Name Dose Route Start Last Admin Trade Name Freq PRN Reason Stop Dose Admin Acetaminophen 500 mg 02/07/25 22:07 02/08/25 12:23 Acetaminophen 500 Mg Tablet PO 03/09/25 22:06 500 mg Q4HR PRN Administration fever > 100.5 Cyclobenzaprine HCl 5 mg 02/08/25 11:32 Cyclobenzaprine 5 Mg Tablet PO 03/10/25 11:31 TID PRN MUSCLE SPASMS Dextrose 25 ml 02/07/25 18:14 Dextrose 50%-Water Inj 50 Ml Syringe IV 03/09/25 18:13 Q15MIN PRN BG 50-70 responsive npo pt Dextrose 50 ml 02/07/25 18:14 Dextrose 50%-Water Inj 50 Ml Syringe IV 03/09/25 18:13 Q15MIN PRN BG <50 OR BG <70 & pt unresponsive Gabapentin 300 mg 02/07/25 22:00 Gabapentin 300 Mg Capsule PO 03/09/25 21:59 TID ADRIANA Glucagon 1 mg 02/07/25 18:14 Glucagon Inj 1 Mg Vial IM Q15MIN PRN BG <70, and no IV access Heparin Sodium (Porcine) 3,300 unit 02/07/25 19:42 Heparin Sod Inj 1000 Unit/Ml Vial 10 Ml INDWELLCAT 02/21/25 19:41 X1 PRN DIALYSIS Ferric Sodium Gluconate 125 mg 110 mls @ 110 mls/hr 02/08/25 16:00 / Sodium Chloride IV 03/10/25 15:59 QDAY [facility] Ceftriaxone Sodium/Dextrose 1 gm in 50 mls @ 100 mls/hr 02/08/25 14:32 Rocephin/D5w 1gm Iv Premix IV 02/15/25 14:31 QDAY [facility] Insulin Human Lispro 0 unit 02/08/25 06:00 02/08/25 12:23 Insulin Lispro (Admelog) 1 Unit/0.01 Ml Unit SC 03/10/25 05:59 Not Given Q6HR [facility] Protocol Metoprolol Succinate 25 mg 02/08/25 09:00 02/08/25 10:00 Metoprolol Succinate Xl 25 Mg Tabcr PO 03/10/25 08:59 25 mg QDAY ADRIANA Administration Pantoprazole Sodium 40 mg 02/08/25 09:00 02/08/25 09:16 Pantoprazole 40 Mg Tablet PO 03/10/25 08:59 40 mg QDAY ADRIANA Administration Sevelamer Carbonate 800 mg 02/08/25 08:00 02/08/25 12:23 Sevelamer Carbonate 800 Mg Tablet PO 03/10/25 07:59 800 mg TIDWM ADRIANA Administration Plan 59M with ESRD on HD, AFib, T2DM, HTN, HLD, recent encephalopathy and UTI, now improved after ICU admission for unresponsiveness during dialysis. #Acute Encephalopathy (resolving) Patient had transient unresponsiveness post-HD, likely multifactorial: uremia, bladder retention, possible medication effect (gabapentin, fentanyl patch), and underlying infection. Mental status now improved. Plan: * Neuro checks Q4 * Continue orienting stimuli * Avoid sedating meds * Restart gabapentin only if clearly needed, otherwise hold * MRI brain if AMS recurs #Stroke Rule-Out (negative CT/CTA) Teleneurology consulted. Imaging ruled out hemorrhage or infarct. Plan: * No further stroke workup unless symptoms return * Continue supportive neuro care #Urinary Retention with Hematuria Bladder scan showed >800 cc retention; >2L of dark urine drained after Wilde placement. Patient now improved. UA: WBCs 1251, RBCs 786, +LE, rare bacteria. Plan: * Wilde catheter in place * Trial void planned for today * If fail, discharge with Wilde and urology follow-up * Bladder scan PRN #UTI with Leukocytosis WBC 16.3 --> 18.5. UA suggestive of infection. Plan: * Continue IV Zosyn and vancomycin * Discontinued ceftriaxone * Monitor for fever, AMS * Await urine and blood culture results #Sepsis vs Bladder Decompression Hypotension Brief hypotension requiring Levophed post-voiding. Now hemodynamically stable. Plan: * Off pressors * Maintain MAP >65 * No further IVF #Troponinemia ? likely Type II NSTEMI Troponin 0.527 with no ECG changes. Plan: * Continue trending troponin * Consider cardiology consult if new symptoms or rise * Avoid beta-blockers for now due to borderline BP #Paroxysmal AFib ? Sinus rhythm On Eliquis 5 mg BID, now held due to hematuria Plan: * Continue to hold anticoagulation * Reassess bleeding risk and restart decision later * Maintain K > 4.0, Mag > 2.0 #ESRD on HD ? recent missed sessions Received HD yesterday with improvement in electrolytes and mentation. Now hemodynamically stable. Plan: * Hold HD today * Resume // schedule * Monitor daily labs * Hold baclofen; continue cyclobenzaprine * Continue sevelamer * Iron IV 125 mg daily * Epogen planned for tomorrow #Hyperkalemia ? resolved (K 7 --> 4.2) Plan: * Continue monitoring BMP * No further emergent treatment needed #Anemia of Chronic Disease ? Hgb 8.7 --> 7.1 Likely chronic + dilutional or minor hematuria Plan: * Monitor CBC * IV iron * Epogen tomorrow * No transfusion at this time #HTN, HLD, DM2 ? chronic Metoprolol held due to low MAP Plan: * Restart metoprolol if BP tolerates * SSI insulin and accuchecks Q6H * Monitor lipids #Chronic Back/Leg Pain Cyclobenzaprine started Plan: * Continue for now * DC baclofen * Reassess efficacy and sedation #CPAP use Patient using CPAP nightly Plan: * Continue as above Health Maintenance: Disposition: downgraded from ICU Code Status: DNR Lines: Wilde catheter, PIV Feeding: Regular diet GI prophylaxis: Protonix Thromboprophylaxis: Eliquis held; not a candidate for heparin at this time Discharge Plan: SNF return tomorrow ----- Plan discussed with attending physician Dr. Stacy Lopez MD PGY-1 Internal Medicine
[2025-02-08] MEDS: cefTRIAXone/D5w 1gm IV premix 1 GM/50 ML BAG IV (16:21)
[2025-02-08] MEDS: MIDODRINE 5 MG TABLET PO (16:39)
--- NOTE | 2025-02-08 16:44 | PC.NURSE ---
phone call to pharmacy, please send ferrlecit
[2025-02-08] MEDS: FERRIC SOD GLUC INJ 125 MG in SODIUM CHLORIDE 0.9% 100 ML 110 MG IV (17:05)
[2025-02-08] MEDS: LIDOCAINE 5% 1 PATCH TOP (18:24)
[2025-02-09] VITALS (7 sets, daily range): BP systolic 120–123; BP diastolic 53–76; PULSE 71–82; RESP 16–18; TEMP 36.1–36.3; O2SAT 96–98; BMI 27.9; BMI 13.0
[2025-02-09 06:16] LABS: Basophils # (Auto) 0.1 Thou/mm3 (0.0-0.2); Basophils % (Auto) 1 % (0-2.5); Eosinophils # (Auto) 0.4 Thou/mm3 (0.0-0.5); Eosinophils % (Auto) 4 % (0-10); Hematocrit 25.6 % (41.0-53.0); Immature Granulocytes Auto 0.07 Thou/mm3 (0.00-0.00); Lymphocytes # (Auto) 0.6 Thou/mm3 (1.0-4.8); Lymphocytes % (Auto) 6 % (10-50); Mean Corpuscular HGB Conc 33.2 g/dl (31.0-37.0); Mean Corpuscular Hemoglobin 31.3 pg (25.0-35.0); Mean Corpuscular Volume 94 fL (80-100); Monocytes # (Auto) 1.0 Thou/mm3 (0.0-0.8); Monocytes % (Auto) 10 % (0-12); Neutrophils # (Auto) 8.3 Thou/mm3 (1.8-7.7); Neutrophils % (Auto) 79 % (37-80); Nucleated Red Blood Cell # 0.00 Thou/mm3 (0.00-0.00); Nucleated Red Blood Cell % 0 /100 WBC (0); Platelet Count 328 Thou/mm3 (140-440); RDW Standard Deviation 63.7 fL (35.1-43.9); Red Blood Count 2.72 Miln/mm3 (4.50-5.90); White Blood Count 10.5 Thou/mm3 (3.8-10.6)
[2025-02-09 06:26] LABS: Hemoglobin 8.5 g/dL (13.5-16.0)
--- NOTE | 2025-02-09 07:22 | ESDS_ITS ---
<Statement entered by Sheba Kumar MD - 02/14/25 07:32> I reviewed above note and agree with findings and plans. I have also personally examined the patient with medicine team and went over assessment and plan with medical team including summer intern and resident physician. Planned Discharge Date 02/09/25 DS: Providers Provider Date of admission: 02/07/25 22:41 Primary care physician: Yesy Penn MD Admitting Provider: Sheba Kumar MD Attending Provider on Admission: Sheba Kumar MD Consults: 02/07/25 17:45 Consult to Nephrology Stat Comment: Consulting Provider: Pastor Garcia 02/07/25 22:05 Consult to Neurology / Tele-Neurology Stat Comment: stroke r/o Consulting Provider: Case Freed 02/07/25 22:11 Referral Physical Therapy Stat Comment: Physician Instructions: Referral Speech Therapy Stat Comment: Attending Provider on DC: Dr. Stacy RAO Discharging Provider: Gabi Hung, DS: Diagnosis Problem List Completed Was Problem List Reviewed/Reconciled?: Yes Hospital Course Hospital Course Hospital course: Mr. Schmidt is a 59-year-old male with a history of ESRD on HD (MWF), T2DM, HTN, hyperlipidemia, paroxysmal atrial fibrillation, and prior GI bleed was admitted from [facility] for generalized weakness after reportedly missing or cutting short dialysis sessions. Initial labs revealed severe uremia (Cr 15.4, K 7.0) and leukocytosis (WBC 16.3). He was taken for urgent HD after receiving temporizing measures (IV insulin, calcium gluconate, sevelamer). During HD, a rapid response was called due to acute unresponsiveness. Stroke alert was activated; CT head and CTA were negative for hemorrhage or infarct. Tele- neurology attributed symptoms to multifactorial encephalopathy. Patient was transferred to ICU for close monitoring. Evaluation revealed significant urinary retention with >800 cc on bladder scan and >2L of tea- colored urine output after Wilde placement. Urinalysis was concerning for UTI. He was started on vancomycin and Zosyn. Mental status improved significantly following decompression. He developed post-decompression hypotension requiring brief Levophed support. Troponin peaked at 0.527, felt to be a Type II NSTEMI. Eliquis was held due to hematuria. Cyclobenzaprine was initiated for dialysis-related muscle cramping. Gabapentin and baclofen were discontinued due to concern for contributing to altered mentation. Patient remained hemodynamically stable off pressors, encephalopathy resolved, and leukocytosis began to downtrend. He was downgraded from ICU to the medical floor on 02/08. Wilde catheter remained in place, and a voiding trial was planned for 02/09. Patient failed voiding trial and discharged with Wilde in place, outpatient urology follow-up reccomended . ? pt stable and medically cleared for discharge Discharge Diagnoses: #Acute Encephalopathy ? resolved #Urinary Retention #Urinary Tract Infection #ESRD on Hemodialysis ? post-HD stable #Type II NSTEMI #Paroxysmal Atrial Fibrillation ? anticoagulation held #Anemia of Chronic Disease #T2DM ? insulin managed #Hypertension ? borderline BP #Hyperlipidemia #Chronic Back Pain ? Discharge Plans: ?Given started on the following medications: - Cyclobenzaprine 5 mg as needed for muscle pain, up to 3 times a day Please stop taking gabapentin. Take all other medications as previously prescribed. Continue hemodialysis as scheduled by your engineering mechanic. Please follow-up with your PCP within 7-10 days Please return to the ED if develop new or worsening symptoms. ? Case discussed with my attending Dr. Stacy Hung MD PGY-1 Time Spent with Patient Time attestation: Total time spent providing and/or coordinating discharge services: Time spent: Greater than 30 minutes Exam Vital Signs Temp Pulse Resp BP Pulse Ox O2 Del Method O2 Flow Rate 97.0 F 73 17 120/76 97 Nasal Cannula 2 02/09/25 04:15 02/09/25 04:15 02/09/25 04:15 02/09/25 04:15 02/09/25 04:15 02/08/25 20:05 02/08/25 20:05 Narrative Exam General:?Well-appearing, in no acute distress Neuro:?Alert and oriented to self and place; improved cognition CV:?RRR, no murmurs Resp:?Clear to auscultation bilaterally Abdomen:?Soft, non-tender, nondistended :?Wilde remains in place Extremities:?No edema, strength intact Skin:?Intact, no rashes or ulcers Discharge Plan Plan Patient Disposition: Xfer Skilled Nsg Fac (SNF) Patient condition on transfer: Stable Care Plan Goals: Given started on the following medications: - Cyclobenzaprine 5 mg as needed for muscle pain, up to 3 times a day Please stop taking gabapentin. Take all other medications as previously prescribed. Continue hemodialysis as scheduled by your engineering mechanic. Please follow-up with your PCP within 7-10 days Please return to the ED if develop new or worsening symptoms. Prescriptions/Referrals Prescriptions/Med Rec: New cyclobenzaprine 5 mg Tablet 5 mg PO TID PRN (Reason: Muscle Spasms) 30 Days Qty: 90 0RF Continued Ileana-Koko Rx 1-60-300 mg-mg-mcg tablet 1 tab PO .QD Patient Comments: TAKE ONE TABLET BY MOUTH EVERY DAY VITAMIN metoprolol succinate 25 mg Tablet Extended Release 24 Hr 25 mg PO QDAY 30 Days Qty: 30 3RF Humalog Tempo Pen(U-100)Insuln 100 unit/mL insulin pen, sensor 1 sliding scale dose subcut USEASDIRECTD lidocaine 4 % adhesive patch,medicated 1 patch topical Q24H Rx Instructions: may leave on for up to 12 hrs hydrocodone-acetaminophen 5-325 mg tablet 1 tab PO Q8H PRN (Reason: pain (scale score 7-10)) acetaminophen [Tylenol] 325 mg tablet 650 mg PO Q6H PRN (Reason: pain (scale score 1-3)) ceftriaxone-lidocaine 1-1 gram-% kit 1 ea .Route QDAY Patient Comments: ENDS 02/13/2025 diclofenac sodium 1 % gel 2 g topical QID PRN (Reason: Left shoulder pain) Rx Instructions: apply to single elbow, wrist or hand; for hand includes palm/fingers/back of hand magnesium hydroxide [Dulcolax (magnesium hydroxide)] 400 mg/5 mL suspension 30 ml PO Q72H PRN (Reason: constipation) Eliquis 5 mg tablet 5 mg PO BID sevelamer carbonate 800 mg tablet 800 mg PO TID 30 Days Qty: 90 0RF Rx Instructions: Take one tablet by mouth three times a day Discontinued gabapentin 300 mg capsule 300 mg PO TID Referrals: Yesy Penn MD [Primary Care Provider] - Patient/Caregiver Discharge Instructions Discharge Activity: activity as tolerated Print Language: Luxembourgish Stand Alone Forms: C[facility]lle Award Info., Patient Portal Info Letter Discharge Order Discharge Orders: Discharge (Routine); Ordered 02/09/25 Ordered By: Marshall Conrad Quality Discharge Quality Measures VTE prophylaxis
[2025-02-09 07:25] LABS: Alanine Aminotransferase 29 U/L (10-49); Albumin, Serum 3.0 gm/dL (3.5-5.0); Albumin/Globulin Ratio 0.8 (1.2-2.2); Alkaline Phosphatase 114 U/L (46-116); Anion Gap 15 (7-16); Aspartate Amino Transferase 21 U/L (0-34); BUN/Creatinine Ratio 6 Ratio (12-20); Bilirubin,Total 0.6 mg/dL (0.3-1.2); Blood Urea Nitrogen 59 mg/dL (9-23); Calcium 8.3 mg/dL (8.3-10.6); Calcium (Corrected) 9.1 mg/dL (8.5-10.1); Carbon Dioxide 23.0 mMol/L (20.0-31.0); Chloride 100 mMol/L (98-107); Creatinine (Component) 10.0 mg/dL (0.6-1.3); Estimated Creatinine Clearance 6.7 mL/min (>60); Globulin 4.0 gm/dL (2.3-3.5); Glucose 121 mg/dL (74-106); Magnesium 1.9 mg/dL (1.6-2.6); Osmolality,Calculated 293 (275-295); Potassium 5.2 mMol/L (3.4-5.1); Sodium 138 mMol/L (136-145); Total Protein 7.0 gm/dL (5.7-8.2); eGFR 6 See Note
[2025-02-09 08:23] LABS: Phosphorous 11.9 mg/dL (2.4-5.1)
[2025-02-09] MEDS: PANTOPRAZOLE 40 MG TABLET PO (08:35)
[2025-02-09] MEDS: SEVELAMER CARBONATE 800 MG TABLET PO (08:35)
[2025-02-09] MEDS: cefTRIAXone/D5w 1gm IV premix 1 GM/50 ML BAG IV (08:35)
[2025-02-09] MEDS: FERRIC SOD GLUC INJ 125 MG in SODIUM CHLORIDE 0.9% 100 ML 110 MG IV (10:09)
[2025-02-09 10:26] LABS: Albumin, Serum 3.2 gm/dL (3.5-5.0); Anion Gap 18 (7-16); BUN/Creatinine Ratio 5 Ratio (12-20); Blood Urea Nitrogen 53 mg/dL (9-23); Calcium 8.6 mg/dL (8.3-10.6); Calcium (Corrected) 9.2 mg/dL (8.5-10.1); Carbon Dioxide 23.1 mMol/L (20.0-31.0); Chloride 98 mMol/L (98-107); Creatinine (Component) 10.1 mg/dL (0.6-1.3); Estimated Creatinine Clearance 6.6 mL/min (>60); Glucose 146 mg/dL (74-106); Osmolality,Calculated 294 (275-295); Potassium 5.1 mMol/L (3.4-5.1); Sodium 139 mMol/L (136-145); eGFR 5 See Note
[2025-02-09 10:27] LABS: Phosphorous 11.8 mg/dL (2.4-5.1)
--- NOTE | 2025-02-09 11:22 | ESPR_ITS ---
Documentation for date of: 02/09/25 Subjective Subjective Interval history: 59-year-old male with a complex medical history including end-stage renal disease on HD (MWF), type 2 diabetes mellitus, hypertension, hyperlipidemia, and prior upper GI bleed, presents from [facility] with generalized weakness and missed dialysis. Per EMS, the patient was not confused during transport and stated he was willing to resume dialysis. However, during initial interview, the patient displayed signs of confusion and tangential speech, with difficulty completing thoughts and inconsistent responses. On admission, He states that he came to the hospital ?because my son told me I have to? and that he has not been receiving dialysis recently due to leg pain when lying down. He was unclear on the last date of dialysis and unable to recall recent events. He denied chest pain, shortness of breath, dizziness, syncope, fevers, nausea, vomiting, or melena. He reports some mild right leg pain when lying in a certain position but denied bilateral symptoms. He is alert to self and location but not to time. He endorses making ?a little urine? despite ESRD. Currently, patient is doing much better after having completed HD per Dr. Garcia. Patient was alert and oriented x3, laying in bed, conversing normally without any new complaints/concerns. Patient states that he had been going to HD regularly and did not skip attending sessions, just that he has cut them short because of his leg pain described as muscle pain. Muscle relaxant cyclobenzaprine was ordered. Patient also noted that he feels too much fluid is being taken off during dialysis. Will plan to hold HD today. Patient denies any fever, headache, chest pain, shortness of breath, abdominal pain. 02/09/2025 Patient seen and examined at bedside, lying comfortably in bed. No new complaints. Alert and oriented x3. Denies chest pain, SOB, abdominal pain or fever. Phos elevated 11.9 despite sevelamer 800 mg TID with meals, increase to 1600 mg. K elevated 5.2, 5.1 on repeat, give Kayexalate as HD will be held today. HD planned for tomorrow. Exam Vital Signs Temp Pulse Resp BP Pulse Ox O2 Del Method O2 Flow Rate 97.4 F 82 16 123/63 98 Room Air 2 02/09/25 08:00 02/09/25 10:04 02/09/25 08:00 02/09/25 08:00 02/09/25 08:00 02/09/25 08:00 02/08/25 20:05 Narrative Exam GENERAL: AOx3, no acute distress, comfortably lying in bed HEENT: NC/AT, mucous membranes moist, bilateral sclera anicteric CARDIOVASCULAR: regular rate and rhythm, S1/S2 present, no murmurs appreciated PULMONARY: clear to auscultation bilaterally, no rales/rhonchi/wheezes ABDOMINAL: soft, non-tender, non-distended, no rebound/guarding, bowel sounds present EXTREMITIES: mild BLE edema SKIN: warm and dry, intact, no rashes NEURO: CN II-XII grossly intact, no focal deficits, alert, following commands Objective Labs 02/09/25 05:35 02/09/25 09:53 Labs: Laboratory Results - last 24 hr 02/09/25 02/09/25 05:35 09:53 WBC 10.5 RBC 2.72 L Hgb 8.5 L Hct 25.6 L MCV 94 MCH 31.3 MCHC 33.2 RDW Std Deviation 63.7 H Plt Count 328 Neut % (Auto) 79 Lymph % (Auto) [address] [place] % (Auto) 10 Eos % (Auto) 4 Baso % (Auto) 1 Neut # (Auto) 8.3 H Lymph # (Auto) 0.[address] [place] # (Auto) 1.0 H Eos # (Auto) 0.4 Baso # (Auto) 0.1 Immature Gran # (Auto) 0.07 H Absolute Nucleated RBC 0.00 Immature Gran % 1 H Nucleated RBC % 0 Sodium 138 139 Potassium 5.2 H 5.1 Chloride 100 98 Carbon Dioxide 23.0 23.1 Anion Gap 15 18 H BUN 59 H 53 H Creatinine 10.0 H* D 10.1 H* Estim Creat Clear Calc 6.7 L 6.6 L eGFR 6 L* 5 L* BUN/Creatinine Ratio 6 L 5 L Glucose 121 H 146 H Calculated Osmolality 293 294 Calcium 8.3 8.6 Corrected Calcium 9.1 9.2 Phosphorus 11.9 H 11.8 H Magnesium 1.9 Total Bilirubin 0.6 AST 21 ALT 29 Alkaline Phosphatase 114 Total Protein 7.0 Albumin 3.0 L 3.2 L Globulin 4.0 H Albumin/Globulin Ratio 0.8 L ABG Interpretation ABG results: 02/07/25 21:20 VBG pH 7.50 VBG pCO2 33 L VBG pO2 102 H VBG Base Excess 2 Quality Measures Quality Measures VTE prophylaxis Assessment & Plan Assessment Current Active Medications: Generic Name Dose Route Start Last Admin Trade Name Kasandra PRN Reason Stop Dose Admin Acetaminophen 500 mg 02/07/25 22:07 02/08/25 12:23 Acetaminophen 500 Mg Tablet PO 03/09/25 22:06 500 mg Q4HR PRN Administration fever > 100.5 Cyclobenzaprine HCl 5 mg 02/08/25 11:32 02/09/25 10:09 Cyclobenzaprine 5 Mg Tablet PO 03/10/25 11:31 5 mg TID PRN Administration MUSCLE SPASMS Protocol Dextrose 25 ml 02/07/25 18:14 Dextrose 50%-Water Inj 50 Ml Syringe IV 03/09/25 18:13 Q15MIN PRN BG 50-70 responsive npo pt Dextrose 50 ml 02/07/25 18:14 Dextrose 50%-Water Inj 50 Ml Syringe IV 03/09/25 18:13 Q15MIN PRN BG <50 OR BG <70 & pt unresponsive Gabapentin 300 mg 02/07/25 22:00 Gabapentin 300 Mg Capsule PO 03/09/25 21:59 TID ADRIANA Glucagon 1 mg 02/07/25 18:14 Glucagon Inj 1 Mg Vial IM Q15MIN PRN BG <70, and no IV access Heparin Sodium (Porcine) 3,300 unit 02/07/25 19:42 Heparin Sod Inj 1000 Unit/Ml Vial 10 Ml INDWELLCAT 02/21/25 19:41 X1 PRN DIALYSIS Ferric Sodium Gluconate 125 mg 110 mls @ 110 mls/hr 02/08/25 16:00 02/09/25 10:09 / Sodium Chloride IV 03/10/25 15:59 110 mls/hr QDAY ADRIANA Administration Ceftriaxone Sodium/Dextrose 1 gm in 50 mls @ 100 mls/hr 02/08/25 14:32 02/09/25 08:35 Rocephin/D5w 1gm Iv Premix IV 02/15/25 14:31 100 mls/hr QDAY ADRIANA Administration Insulin Human Lispro 0 unit 02/08/25 06:00 02/09/25 05:53 Insulin Lispro (Admelog) 1 Unit/0.01 Ml Unit SC 03/10/25 05:59 Not Given Q6HR [facility] Protocol Metoprolol Succinate 25 mg 02/08/25 09:00 02/08/25 10:00 Metoprolol Succinate Xl 25 Mg Tabcr PO 03/10/25 08:59 25 mg QDAY ADRIANA Administration Midodrine 5 mg 02/08/25 16:30 Midodrine 5 Mg Tablet PO 03/10/25 16:29 TID PRN Give if BP below 90/60 Pantoprazole Sodium 40 mg 02/08/25 09:00 02/09/25 08:35 Pantoprazole 40 Mg Tablet PO 03/10/25 08:59 40 mg QDAY ADRIANA Administration Sevelamer Carbonate 1,600 mg 02/09/25 12:00 Sevelamer Carbonate 800 Mg Tablet PO 03/11/25 11:59 TIDWM ADRIANA Sodium Polystyrene Sulfonate 30 gm 02/09/25 11:18 Sod Polystyrene Sulfon Susp 15 Gm/60 Ml Btl PO 02/09/25 11:19 X1 ONE Plan 59M with ESRD, hx of AFib, DM2, HTN, HLD, recently hospitalized for uremic encephalopathy, bacteremia, and GI bleed, now re-admitted with missed dialysis, hyperkalemia, and altered mental status. #ESRD on HD (MWF) #Anemia of Chronic Disease #Hyperkalemia, improved #Altered Mental Status, improved #Acute Encephalopathy, improved Patient presented with confusion and weakness, found to have K 7.0, Cr 15.4 on admission. Given Kayexalate, insulin, Ca gluconate and then proceeded with HD. Potassium improved to normal range and mental status improved after HD. Patient states he attended Mon's HD session and previous ones from the week, but has cut them short because of leg pain. HD done 02/07. 2 L removed. Patient had rapid called at end of the session, fth 800cc in bladder, given small with 2L purple/brown urine. BP dropped to 80/53, not fluid responsive, given x1 Levophed. Patient hgb on admission 8.7, dropped to 7.1. No bleeding noted, stable. Altered mental status initially seen likely due to uremia. Patient appears clinically improved and will not need dialysis today. Phos 11.9 despite sevelamer 800 TID. K 5.1. Received HD 02/07, Plan: -Hold HD today, next session likely tomorrow -Continue MWF HD schedule -Increase Sevelamer 800 mg PO TID to 1600 mg PO TID -Kayexalate 30 mg PO x1 -D/c Small -Hold gabapentin (renally cleared; may worsen encephalopathy) #Paroxysmal Atrial Fibrillation with history of CHF #Anemia of Chronic Disease (Hgb 8.7) #Right Lower Extremity Pain #History of UTI with bacteremia #T2DM, HTN, HLD, constipation, chronic pain neuropathy? Chronic -above managed per primary team Patient plan of care was discussed with the attending physician, Dr. Manju Cárdenas, DO Internal Medicine PGY-1 Attending Provider Attestation/Addendum Nephrology coverage for Dr. Garcia Patient seen and examined with resident physician Dr. Cárdenas. Note reviewed, agree with findings and recommendations. Currently seen in medical floor. Mentation completely normalized. He goes to dialysis Monday, Monday, Monday. Did not complete his treatments due to leg cramps. I ordered baclofen. Spoke to primary team. Renal hurtado stable for discharge today. Potassium 5.2-1 dose of Kayexalate given. Emphasized low potassium diets. His phosphorus has been high continue binders If patient is not discharged-will need dialysis tomorrow
[2025-02-09] MEDS: SOD POLYSTYRENE SULFON SUSP 15 GM/60 ML BTL 30 GM PO (12:43)
[2025-02-09] MEDS: SEVELAMER CARBONATE 800 MG TABLET 1600 MG PO (12:43)
--- NOTE | 2025-02-09 14:26 | PC.SS ---
Addendum entered by Keke Flowers 02/09/25 14:47: Call received from -[facility], auth for transportation received. Transportation scheduled for 1600 via [employer]. [facility], patient's son Ric, EDD Zuleima, and JEREL Church informed of 1600 transport to [facility]. Original Note: SS confirmed with Dr. Conrad patient is medically clear and can discharge today. contacted [facility] to confirm patient can return to SNF today, [place] confirmed he can return today. SS contact [facility] to obtain auth., reservation #[phone] provided. PCS form was submitted to [facility] via [employer]. [facility] until [facility] provides transportation. Transportation time pending.
== END 2025-02-09 16:05 | disposition skilled nursing facility (03) | DRG 640 ==
LOC: SERX 16:56 → S2SX 23:20 → S3NX 02-09 07:32 → SERHOLD 02-09 08:28 → S3NX 02-09 08:31 → S2SX 02-09 08:31
PROVIDERS: Student in an Organized Health Care Education/Training Program; Admitting Provider Internal Medicine; Emergency Provider Emergency Medicine; PCP Hospitalist; Visit Provider Internal Medicine
DX: E87.5 Hyperkalemia (principal); I21.A1 Myocardial infarction type 2; N18.6 End stage renal disease; I50.32 Chronic diastolic (congestive) heart failure; I13.2 Hypertensive heart and chronic kidney disease with heart failure and with stage 5 chronic kidney disease, or end stage renal disease; N39.0 Urinary tract infection, site not specified; G93.49 Other encephalopathy; E11.22 Type 2 diabetes mellitus with diabetic chronic kidney disease; I48.0 Paroxysmal atrial fibrillation; D63.1 Anemia in chronic kidney disease; M79.604 Pain in right leg; Z91.158 Patient's noncompliance with renal dialysis for other reason; E11.40 Type 2 diabetes mellitus with diabetic neuropathy, unspecified; E78.5 Hyperlipidemia, unspecified; E83.39 Other disorders of phosphorus metabolism; Z99.2 Dependence on renal dialysis; G89.29 Other chronic pain; G47.33 Obstructive sleep apnea (adult) (pediatric); R31.0 Gross hematuria; Z78.1 Physical restraint status; I44.0 Atrioventricular block, first degree; N32.89 Other specified disorders of bladder; Z66 Do not resuscitate; K59.00 Constipation, unspecified; Z91.148 Patient's other noncompliance with medication regimen for other reason; Z79.01 Long term (current) use of anticoagulants; Z79.899 Other long term (current) drug therapy; Z87.440 Personal history of urinary (tract) infections; I65.22 Occlusion and stenosis of left carotid artery; I95.9 Hypotension, unspecified; R25.2 Cramp and spasm
CPT/HCPCS: 36415; 70450; 70496; 70498; 71045; 80053; 80069; 80202; 81001; 82140; 82550; 82803; 83036; 83605; 83735; 84100; 84484; 85025; 85610; 87040; 87081; 87086; 90935; 92610; 93005; 93225; 93971; 97161; 99284; A4649; J0612; J0696; J1815; J2310; J2312; J2543; J2916; J3373; J3490; J7050; Q9967; A9270; G0257